=== PATIENT | female | born 1955 | race Caucasian/White ===

== ENCOUNTER → 2017-12-24 | Outpatient (CLI) | payer OTHER ==
[~2017-12-24] MED LIST: ALPRAZOLAM; CETIRIZINE; EPIPEN; HYDROCO/APAP; METFORMIN HCL500 M3; ONDANSETRON; PROAIR; PROVENTIL JT; Z ALBUTEROL SULFAT PO; Z DOXEPIN HCL PO; Z MORPHINE SULFAT; Z.0.ACIPHEX20 MG PO; Z.0.BENICAR20 MG PO; Z.0.DICYCLOMINE HCL2 PO; Z.0.FLEXERIL10 MG PO; Z.0.IPRATROPIU0.2 MG IH; Z.0.LIPITOR40 MG PO; Z.0.NITROGLYCERIN0.4 SL; Z.0.PLAVIX75 MG PO; Z.0.RESTASIS1 EACH OP; [UNRECOGNIZED DRUG - OTHER]; [UNRECOGNIZED DRUG - OTHER]
[2017-12-24 09:43] LABS: ABG HCO3 26 mmol/L (23-28); ABG PCO2 43 mmHg (41-51); ABG PH 7.39 (7.31-7.41); ABG PO2 84 mmHg (80-105)
== END ==
LOC: DX 09:19
PROVIDERS: ATTEND Internal Medicine
DX: R09.02 Hypoxemia (principal)
CPT/HCPCS: 36415; 82805

== ENCOUNTER 2018-04-12 19:11 | Inpatient (IN) | payer OTHER ==
[~2018-04-12] VITALS: Ht 170.2 cm; Wt 65.8 kg
[~2018-04-12 19:11] MED LIST changes: -Z MORPHINE SULFAT; +Z MORPHINE SULFAT PO
[2018-04-12] MEDS ORDERED: ONDANSETRON HCL INJ 2 MG/ML VIAL IV STA (19:28)
[2018-04-12] MEDS ORDERED: PANTOPRAZOLE 40 MG 10ML VIAL IV STA (19:28)
[2018-04-12] MEDS ORDERED: SODIUM CHLORIDE 0.9% 1000ML 1,000 ML IV ONE (19:30)
[2018-04-12] MEDS ORDERED: DILTIAZEM 24HR180 MG (19:36)
[2018-04-12] MEDS ORDERED: DILAUDID2 MG PO (19:38)
[2018-04-12 19:49] LABS: BASOPHILS # (AUTO) 0.1 (0.0-0.1); BASOPHILS % 0.5 % (0.0-1.0); EOSINOPHILS # (AUTO) 0.1 (0.0-0.4); EOSINOPHILS % 1.1 % (0.0-6.0); HEMATOCRIT 32.3 % (34.2-44.1); HEMOGLOBIN 11.5 g/dL (12.0-16.0); LYMPHOCYTES # (AUTO) 2.2 (1.0-3.2); LYMPHOCYTES % 17.4 % (18.0-39.1); MEAN CORPUSCULAR HEMOGLOBIN 30.7 pg (28-32); MEAN CORPUSCULAR HGB CONC 35.6 g/dL (31-35); MEAN CORPUSCULAR VOLUME 86.4 fL (81-99); MONOCYTES % 7.6 % (4.4-11.3); NEUTROPHILS # (AUTO) 9.3 (2.1-6.9); NEUTROPHILS % 72.9 % (38.7-80.0); PLATELET COUNT 413 x10e3/uL (140-360); RED BLOOD COUNT 3.74 x10e6/uL (3.6-5.1); RED CELL DISTRIBUTION WIDTH 12.3 % (11.7-14.4)
[2018-04-12 20:09] LABS: ALANINE AMINOTRANSFERASE 21 IU/L (0-55); ALBUMIN 4.4 g/dL (3.5-5.0); ALBUMIN/GLOBULIN RATIO 1.4 (0.8-2.0); ALKALINE PHOSPHATASE 113 IU/L (40-150); AMYLASE 37 U/L (25-125); ANION GAP 15.3 mmol/L (8-16); BLOOD UREA NITROGEN 9 mg/dL (7-26); BUN/CREATININE RATIO 11 (6-25); CALCIUM 9.8 mg/dL (8.4-10.2); CARBON DIOXIDE 23 mmol/L (22-29); CHLORIDE 91 mmol/L (98-107); CREATINE KINASE 61 IU/L (29-168); CREATININE, SERUM 0.82 mg/dL (0.57-1.11); EST GLOMERULAR FILTRATION RATE > 60 ML/MIN (60-); GLUCOSE 113 mg/dL (74-118); LIPASE 10 U/L (8-78); POTASSIUM 3.3 mmol/L (3.5-5.1); SODIUM 126 mmol/L (136-145)
--- NOTE | 2018-04-12 20:33 | Diagnostic Imaging Report ---
ABDOMEN ACUTE SERIES W/PA CXR Clinical history: Vomiting, abdominal pain Technique: AP views of the abdomen, frontal chest x-ray Comparison: 10/09/2016 Findings: Abdomen: Motion artifact degrades upright view. Right upper quadrant clips and overlying skin alexis. No evidence of obstruction or free air. Mild colonic stool burden. Chest: Stable cardiomediastinal silhouette. Hyperinflation with scattered linear areas of scarring. Stable blunting of the right costophrenic angle. No large effusion or pneumothorax. Impression: Nonobstructive bowel gas pattern. Signed by: Dr Erica Pizano MD on 04/12/2018 8:30 PM
[2018-04-12 21:24] LABS: CLARITY,URINE CLOUDY (CLEAR); COLOR,URINE YELLOW (YELLOW)
[2018-04-12 21:25] LABS: BILIRUBIN,URINE NEGATIVE (NEGATIVE); KETONES,URINE NEGATIVE (NEGATIVE); LEUKOCYTE ESTERASE ,URINE 2+ (NEGATIVE); NITRITE,URINE POSITIVE (NEGATIVE); PROTEIN,URINE DIPSTICK NEGATIVE (NEGATIVE); RBC,URINE 0-5 /HPF (0-5); URINE UROBILINOGEN 0.2 mg/dL (0.2 - 1); WBC,URINE (MAN) >50 /HPF (0-5)
[2018-04-12 21:26] LABS: BACTERIA,URINE MANY /HPF; EPITHELIAL CELLS,URINE FEW /LPF
[2018-04-12] MEDS ORDERED: KCL 20MEQ/.9 SOD CHL 1,000 ML IV ONE (21:30)
[2018-04-12] MEDS ORDERED: NITROFURANTOIN MACROCRYSTALS 100 MG CAP PO SCH (21:30)
[2018-04-12] MEDS ORDERED: ZOFRAN ODT4 MG PO (22:06)
[2018-04-12] MEDS: ONDANSETRON HCL INJ 2 MG/ML VIAL IV PRN (22:07)
[2018-04-12] MEDS: HYDROMORPHONE 1MG/1ML INJ IV PRN (22:20)
[2018-04-12] MEDS ORDERED: HYDRALAZINE HCL 25 MG TAB PO ONE (23:15)
[2018-04-12] MEDS ORDERED: LASIX40 MG PO (23:22)
[2018-04-12] MEDS: ALPRAZOLAM 1 MG TAB PO PRN (23:50)
[2018-04-13] MEDS: ONDANSETRON HCL INJ 2 MG/ML VIAL IV PRN ×5 (03:15→20:44)
[2018-04-13] MEDS: HYDROMORPHONE 1MG/1ML INJ IV PRN ×4 (03:15→20:44)
[2018-04-13] MEDS: CLONIDINE HCL 0.1 MG TAB PO SCH ×2 (03:54→08:26)
[2018-04-13 05:52] LABS: BASOPHILS % 0.4 % (0.0-1.0); EOSINOPHILS # (AUTO) 0.1 (0.0-0.4); EOSINOPHILS % 0.9 % (0.0-6.0); HEMATOCRIT 27.6 % (34.2-44.1); HEMOGLOBIN 9.6 g/dL (12.0-16.0); LYMPHOCYTES # (AUTO) 1.5 (1.0-3.2); LYMPHOCYTES % 14.9 % (18.0-39.1); MEAN CORPUSCULAR HEMOGLOBIN 30.7 pg (28-32); MEAN CORPUSCULAR HGB CONC 34.8 g/dL (31-35); MEAN CORPUSCULAR VOLUME 88.2 fL (81-99); MONOCYTES # (AUTO) 0.7 (0.2-0.8); MONOCYTES % 7.2 % (4.4-11.3); NEUTROPHILS # (AUTO) 7.7 (2.1-6.9); NEUTROPHILS % 76.1 % (38.7-80.0); PLATELET COUNT 333 x10e3/uL (140-360); RED BLOOD COUNT 3.13 x10e6/uL (3.6-5.1); RED CELL DISTRIBUTION WIDTH 12.5 % (11.7-14.4)
[2018-04-13 06:08] LABS: ALANINE AMINOTRANSFERASE 16 IU/L (0-55); ALBUMIN 3.6 g/dL (3.5-5.0); ALBUMIN/GLOBULIN RATIO 1.6 (0.8-2.0); ALKALINE PHOSPHATASE 98 IU/L (40-150); ANION GAP 12.5 mmol/L (8-16); BLOOD UREA NITROGEN 8 mg/dL (7-26); BUN/CREATININE RATIO 11 (6-25); CALCIUM 8.3 mg/dL (8.4-10.2); CARBON DIOXIDE 23 mmol/L (22-29); CHLORIDE 96 mmol/L (98-107); CREATININE, SERUM 0.73 mg/dL (0.57-1.11); EST GLOMERULAR FILTRATION RATE > 60 ML/MIN (60-); GLUCOSE 114 mg/dL (74-118); POTASSIUM 3.5 mmol/L (3.5-5.1); SODIUM 128 mmol/L (136-145)
[2018-04-13] MEDS ORDERED: AMLODIPINE BESYLATE 5 MG TAB PO SCH (09:00)
[2018-04-13] MEDS ORDERED: VALSARTAN 160 MG TAB PO SCH (09:00)
[2018-04-13] MEDS: METOCLOPRAMIDE HCL 10 MG/2ML VIAL IV SCH ×4 (10:37→23:15)
[2018-04-13 14:00] VITALS: BP 147/77
[2018-04-13 14:04] VITALS: BP 147/77
[2018-04-13 16:07] VITALS: BP 165/96
[2018-04-13] MEDS ORDERED: NITROGLYCERIN 0.4 MG SUBL SL PRN (17:15)
[2018-04-13] MEDS: KCL 20MEQ/.9 SOD CHL 1,000 ML IV SCH (18:00)
[2018-04-13] MEDS ORDERED: DIPHENOXYLATE/ATROPINE TAB PO PRN (18:00)
[2018-04-13] MEDS ORDERED: DEXTROSE 50% SYRINGE 50 ML IV PRN (18:00)
[2018-04-13] MEDS ORDERED: ALBUTEROL SULFATE 3 MG PO SCH (18:00)
--- NOTE | 2018-04-13 18:23 | History and Physical ---
HISTORY OF PRESENT ILLNESS: A 62-year-old female with past medical history positive for coronary artery disease, hypertension, carotid stenosis, multiple surgeries including appendectomy, cholecystectomy, hysterectomy, abdominal surgery because of infected mesh, history of diabetes, history of chronic pain syndrome, fibromyalgia, history of TIAs. Patient was recently discharged from [facility] due to a TIA and vomiting and uncontrolled hypertension, and according to the patient she was still vomiting when she was sent home by [facility]. She came here with abdominal pain and vomiting and diarrhea. REVIEW OF SYSTEMS: CARDIOVASCULAR: No chest pain or palpitation. RESPIRATORY: No shortness of breath. No cough. GASTROINTESTINAL: She is complaining of nausea, vomiting, abdominal pain and diarrhea. No blood in the stools. No vomiting blood. GENITOURINARY: She has frequency and dysuria. PAST MEDICAL HISTORY: As I said before is COPD, coronary artery disease, hypertension, fibromyalgia, chronic pain syndrome, diabetes mellitus type 2. ALLERGIES: SHE IS ALLERGIC TO A LONG LIST OF MEDICATIONS INCLUDING MINERAL OIL, CASTOR OIL, CARAFATE, IRON AND SULFA, PENICILLIN, LEVAQUIN, OXYCODONE TRAMADOL, AZITHROMYCIN, ADHESIVE TAPE, ERYTHROMYCIN AND DOXYCYCLINE. SOCIAL HISTORY: She used to smoke. She does not smoke anymore. She does not drink alcohol. PHYSICAL EXAMINATION: VITAL SIGNS: Blood pressure 165/96, temperature 96.8, heart rate 89 per minute, respiratory rate is 18 per minute, oxygen saturation 100%. HEART: Shows regular rhythm. Normal S1 and S2 sounds. LUNGS: Clear bilaterally. ABDOMEN: Soft. EXTREMITIES: Show no evidence of cyanosis, edema or trauma. KUB showed no evidence of any abdominal abnormality. On the BMP: Sodium 128, potassium 3.5, chloride 96, CO2 23, BUN 8, creatinine 0.73, glucose 114. On the CBC: White blood count 10.1, hemoglobin 9.6, hematocrit 27.6, platelet count 333,000. AST 16, ALT 16, total bilirubin 0.4, alkaline phosphatase 98. FINAL IMPRESSION: 1. Recurrent vomiting. 2. Acute diarrhea. 3. Anemia of chronic disease. 4. Urinary tract infection. 5. Chronic pain syndrome. 6. Coronary artery disease. 7. Hypertension. 8. Diabetes mellitus type 2 with neuropathy. 9. Chronic obstructive pulmonary disease. 10. Fibromyalgia. PLAN OF TREATMENT: Continue nitrofurantoin 100 mg twice a day, which is one of the few antibiotics we can give her due to she has multiple allergies, for a possible UTI. Continue Zofran 4 mg IV q.4 h. as needed. Alprazolam 1 mg at bedtime. Amlodipine 5 mg daily. Dilaudid 1 mg IV q.4 h. as needed for severe pain. Hydralazine 20 mg IV push every 4 hours as needed for hypertension. Clonidine 0.1 mg twice a day. Metoclopramide 10 mg IV q.6 h. as needed. is going to be changed to losartan 100 mg daily due to a recent recall. Continue the rest of the medications. Continue diabetic diet. Continue blood sugar a.c. and nightly. We are going to consult Dr. Dunn for gastroenterology and Dr. Huston for infectious diseases and Dr. Plata for pain management. Patient had a pain pump removed recently. She had a staple at least for a month. The alexis are ready to come out. We are going to have the nurse to remove the staple as tolerated as long as there is not any dehiscence in the wound. Job#: [id number] EV
[2018-04-13] MEDS ORDERED: IPRATROPIUM BROMIDE 0.02% 2.5 ML NEB NEB SCH (19:00)
[2018-04-13] MEDS ORDERED: MAGNESIUM SULFATE 2GM/50ML 50 ML IV ONE (19:45)
[2018-04-13 20:00] VITALS: BP 165/96
--- NOTE | 2018-04-13 20:21 | Consultation ---
DATE OF CONSULTATION: REASON FOR CONSULTATION: Diarrhea, UTI, recommendation for antibiotic. HISTORY OF PRESENT ILLNESS: This is a 62-year-old female who has history of coronary artery disease, hypertension, carotid stenosis, atherosclerotic disease and past surgical history of appendectomy, cholecystectomy, hysterectomy, infected mesh. The patient comes in not feeling well. She was recently at [facility]. She had TIA. She had vomiting. She has hypertension. She was discharged home. She was there for a few days and came back with nausea, vomiting and diarrhea, not feeling well. Patient was admitted. The patient is currently lying in bed comfortably. PAST MEDICAL HISTORY: Coronary artery disease, chronic pain syndrome, fibromyalgia, hypertension, diabetes mellitus. PAST SURGICAL HISTORY: As above. ALLERGIES: PENICILLIN, LEVAQUIN, AZITHROMYCIN. SOCIAL HISTORY: She used to smoke but quit smoking several years ago. REVIEW OF SYSTEMS HEENT: Negative. There is no headache, visual changes or hearing changes. GI: There is no nausea, no vomiting, no diarrhea. JOINTS: There is no erythema or edema. LABS: White count on admission 12.69, hemoglobin 11.5. Sodium 128, potassium 3.5, creatinine 0.73. PHYSICAL EXAMINATION GENERAL: She is currently alert and oriented, does not seem to be in acute distress. VITALS: Stable. Currently afebrile. There is no fever since admission. HEENT: She is does not appear icteric. NECK: Supple. No JVD. No lymphadenopathy. No thyromegaly. CHEST: Clear bilaterally. HEART: S1, S2. No S3, S4. No murmur. ABDOMEN: Soft. Bowel sounds present. No tenderness. EXTREMITIES: No edema. IMPRESSION: DICTATION STOPPED AT THIS POINT. Job#: [id number]
--- NOTE | 2018-04-13 20:34 | Consultation ---
DATE OF CONSULTATION: HISTORY OF PRESENT ILLNESS: Ms. Alberto is known to me from previous admission. She is telling me she has been having nausea and vomiting for several months. She took her pain pump out and since then she has been having nausea and vomiting and pain. The patient has been at [facility]. She was there for 3 days where she had extensive workup and was discharged home. The next day, she went to [facility]. She was there for 9 days. She had extensive workup and nothing was found. She was discharged home. The next day, she had nausea and vomiting and she came here. During the whole stay, there is no fever, no chills and all other systems are within normal limits. PHYSICAL EXAMINATION: GENERAL: She is currently alert, oriented, does not seem to be in acute distress. VITALS: Stable, currently afebrile. HEENT: She is normocephalic, not icteric. NECK: Supple. No JVD. No lymphadenopathy. No thyromegaly. CHEST: Clear, bilateral coarse. HEART: S1, S2. No S3, S4 or murmur. ABDOMEN: Soft. Bowel sounds present. No tenderness. EXTREMITIES: No edema. IMPRESSION: 1. Nausea and vomiting. It could be secondary to gastrointestinal motility. Will consult gastroenterology. She is well known to Dr. Jackman and his group. From infectious disease point of view, I do not think she has infection at the present time. 2. Allergies to some antibiotic. There is no need for antibiotic at the present time. Discussed with the patient. Will follow with you. Job#: [id number]
[2018-04-13] MEDS ORDERED: INSULIN REGULAR, HUMAN 100 UNIT/1 ML 3ML VIAL SQ SCH (21:00)
[2018-04-13] MEDS: ALBUTEROL SULFATE 2 MG TAB PO SCH ×2 (21:00→21:36)
[2018-04-13] MEDS: INSULIN REGULAR, HUMAN 100 UNIT/1 ML 3ML VIAL SQ SCH (21:00)
[2018-04-13] MEDS: MAGNESIUM SULFATE 2GM/50ML 50 ML IV SCH ×2 (21:00→23:15)
[2018-04-13 21:45] VITALS: BP 125/97
[2018-04-14] VITALS (7 sets, daily range): BP systolic 142–208; BP diastolic 77–98
[2018-04-14] MEDS: ALPRAZOLAM 1 MG TAB PO PRN ×2 (00:14→21:08)
[2018-04-14] MEDS: HYDROMORPHONE 1MG/1ML INJ IV PRN ×6 (00:54→22:30)
[2018-04-14] MEDS: ONDANSETRON HCL INJ 2 MG/ML VIAL IV PRN ×6 (00:54→22:30)
[2018-04-14] MEDS: METOCLOPRAMIDE HCL 10 MG/2ML VIAL IV SCH ×2 (06:06→12:53)
[2018-04-14 06:43] LABS: ANION GAP 15.1 mmol/L (8-16); BLOOD UREA NITROGEN 8 mg/dL (7-26); BUN/CREATININE RATIO 11 (6-25); CALCIUM 8.4 mg/dL (8.4-10.2); CARBON DIOXIDE 22 mmol/L (22-29); CHLORIDE 96 mmol/L (98-107); CREATININE, SERUM 0.75 mg/dL (0.57-1.11); EST GLOMERULAR FILTRATION RATE > 60 ML/MIN (60-); GLUCOSE 102 mg/dL (74-118); MAGNESIUM 2.4 MG/DL (1.3-2.1); POTASSIUM 3.1 mmol/L (3.5-5.1); SODIUM 130 mmol/L (136-145)
[2018-04-14] MEDS: INSULIN REGULAR, HUMAN 100 UNIT/1 ML 3ML VIAL SQ SCH ×4 (07:30→21:00)
[2018-04-14] MEDS: HYDRALAZINE HCL 20 MG/ML VIAL IV PRN ×2 (08:00→16:45)
[2018-04-14] MEDS ORDERED: DILTIAZEM HCL 180 MG CAP CD PO SCH (09:00)
[2018-04-14] MEDS ORDERED: FUROSEMIDE 40 MG TAB PO SCH (09:00)
[2018-04-14] MEDS: CLOPIDOGREL BISULFATE 75 MG TAB PO SCH (09:00)
[2018-04-14] MEDS: LOSARTAN POTASSIUM 100 MG TAB PO SCH (09:00)
[2018-04-14] MEDS ORDERED: LOSARTAN POTASSIUM 100 MG TAB PO SCH (09:00)
[2018-04-14] MEDS: ONDANSETRON HCL 4 MG ORAL DISINTEGRATING TAB PO SCH ×2 (09:20→17:00)
[2018-04-14] MEDS ORDERED: POTASSIUM CHLORIDE 20MEQ/100ML 200 ML IV ONE (10:00)
[2018-04-14] MEDS ORDERED: METOPROLOL TARTRATE INJ 1 MG/ML VIAL IV PRN (12:15)
[2018-04-14] MEDS: METOPROLOL TARTRATE INJ 1 MG/ML VIAL IV PRN (12:25)
[2018-04-14] MEDS ORDERED: CLONIDINE HCL 0.3MG/24 HR PATCH TOP SCH (12:30)
--- NOTE | 2018-04-14 13:15 | Progress Note ---
DATE: INTERNAL MEDICINE PROGRESS NOTE SUBJECTIVE: This is a 62-year-old female who is complaining of vomiting. She is on Zofran. She is on Reglan. The patient is still vomiting. Blood pressure is very high. PHYSICAL EXAMINATION VITAL SIGNS: Blood pressure is 198/80. Temperature is 96.2 degrees Fahrenheit. Heart rate 82 per minute. Respiratory rate 18 per minute. Oxygen saturation 100%. HEART: Regular rhythm. Normal S1, S2 sounds. LUNGS: Clear bilaterally. ABDOMEN: Soft. No tenderness or distention. No visceromegaly. EXTREMITIES: No evidence of cyanosis, edema or trauma. LABS: On the BMP, sodium of 130, potassium 3.1, chloride 96, CO2 22, BUN 8, creatinine 0.75. Glucose 102. On the CBC, white blood count 10.1, hemoglobin 9.6, hematocrit 27.6, platelet count 333,000. AST 16, ALT 16, total bilirubin 0.4, alkaline phosphatase 98. FINAL IMPRESSION 1. Recurrent vomiting. 2. Uncontrolled hypertension. 3. Urinary tract infection. 4. Hypokalemia. 5. Acute diarrhea. 6. Anemia of chronic disease. 7. Chronic pain syndrome. 8. Diabetes mellitus, type 2. 9. Coronary artery disease. 10. Hypertension. 11. Chronic obstructive pulmonary disease. 12. Fibromyalgia. PLAN OF TREATMENT 1. Continue normal saline with potassium 75 mL an hour. 2. Replace potassium as needed. 3. Continue nitrofurantoin 100 mg twice a day. 4. Clonidine 0.1 mg twice a day has been placed on hold because she is on Catapres patch 0.3 mg once a week. 5. Continue Plavix 75 mg daily. 6. Zofran 4 mg IV twice a day as needed. 7. Monitor blood sugar a.c. and nightly. 8. Amlodipine 5 mg daily. 9. Bentyl 20 mg q.6 h. as needed. 10. Albuterol q.6 h. as needed. 11. as needed. 12. Zofran 4 mg IV q.6 h. as needed. Discontinue p.o. Zofran. 13. Continue alprazolam 1 mg at bedtime. 14. Hydralazine 20 mg IV q.4 h. as needed. 15. Metoprolol 5 mg IV q.6 h. as needed. 16. Cardizem has been increased to 240 mg daily because of the uncontrolled hypertension. 17. She is also taking Dilaudid 1 mg IV q.4 h. as needed. 18. Losartan 100 mg daily. 19. Metoclopramide 10 mg IV q.6 h. 20. Gastroenterology consult with Dr. Dunn has been requested. 21. Pain management consult with Dr. Plata has been requested. 22. Consult Dr. Huston for infectious diseases because of possibility of UTI. 23. Patient had been admitted in another hospital because of the same complaints of vomiting and diarrhea. 24. We ordered stool for culture and C. difficile also. 25. Lomotil as needed. 26. I discussed the case with the nurse and the patient. Medications have been reviewed. The labs have been reviewed. Job#: [id number]
--- NOTE | 2018-04-14 16:50 | Diagnostic Imaging Report ---
PROCEDURE: CT ABDOMEN AND PELVIS WITHOUT CONTRAST TECHNIQUE: The abdomen and pelvis were scanned utilizing a multidetector helical scanner from the diaphragm to the lesser trochanter. No oral contrast was given due to vomiting. No IV contrast was administered due to history of iodine allergy. Coronal and sagittal multiplanar reformations were obtained. COMPARISON: [facility], CT, CT ABDOMEN/PELVIS WO, 07/10/2012, 0:41. INDICATIONS: VOMITING, HYPOKALEMIA, history of bowel obstruction in 2011 FINDINGS: ABSENCE OF INTRAVENOUS CONTRAST DECREASES SENSITIVITY FOR DETECTION OF FOCAL LESIONS AND VASCULAR PATHOLOGY. LOWER THORAX: Stable scarring in the anterior right lower lobe (series 2 image 4). Atherosclerotic calcification of the distal thoracic aorta. HEPATOBILIARY: Decreased attenuation of the hepatic parenchyma predominantly involving the right hepatic lobe, consistent with focal steatosis. No focal lesions. No intrahepatic biliary ductal dilation. Stable mild prominence of the common bile duct, which measures approximately 7 mm at the amy hepatis. No radiopaque intraluminal filling defects. Cholecystectomy clips. SPLEEN: No splenomegaly. PANCREAS: No focal masses or ductal dilatation. Mild to moderate pancreatic atrophy. ADRENALS: No adrenal nodules. KIDNEYS/URETERS: No hydronephrosis, stones, or solid mass lesions. PELVIC ORGANS/BLADDER: Bladder is moderately distended. No focal lesions or wall thickening. Uterus is not visualized. No adnexal masses. PERITONEUM / RETROPERITONEUM: No free air or fluid. LYMPH NODES: No lymphadenopathy. VESSELS: Marked atherosclerotic calcification of the abdominal aorta, predominantly the distal portion of proximal vessels. Stable aortobiiliac bypass graft, which shows mild calcification. GI TRACT: There is mild focal dilation of a single loop of proximal jejunum (series 2, image 17), which tapers to normal caliber. No surrounding inflammatory changes or wall thickening. No evidence of obstruction. No pericolonic inflammatory changes. The stomach is decompressed and difficult to evaluate. BONES AND SOFT TISSUES: No aggressive lytic lesions. Stable mild anterior wedging of these L1 vertebral body. Bilateral gluteal region calcified injection granulomas. 5.3 x 1.7 x 4.5 cm structure with central fluid density in the subcutaneous soft tissues of the left anterolateral pelvis (series 2 image 45). No significant surrounding fat stranding. IMPRESSION: 1. Mild focal dilation of a single loop of proximal jejunum, which is likely secondary to peristalsis. There is no surrounding inflammatory changes, no wall thickening, and the loop tapers to normal caliber. The rest of the bowel shows normal caliber. No evidence of obstruction. 2. Mild prominence of the common bile duct, likely reflecting post cholecystectomy status. 3. Hepatic steatosis, predominately involving the right hepatic lobe. 4. 5.3 cm fluid collection in the subcutaneous soft tissues of the left anterior lateral pelvis. Unable to assess for abscess given the lack of intravenous contrast. Correlate for recent surgery. Hussein Fallon M.D. Dictated by: Hussein Fallon M.D. on 04/14/2018 at 16:55 Electronically approved by: Hussein Fallon M.D. on 04/14/2018 at 16:55
[2018-04-14] MEDS: KCL 20MEQ/.9 SOD CHL 1,000 ML IV SCH ×2 (17:21→21:08)
[2018-04-14] MEDS: RIFAXIMIN 550 MG TABLET PO SCH (18:00)
--- NOTE | 2018-04-14 18:47 | Consultation ---
DATE OF CONSULTATION: April 14, 2018 GI CONSULTATION REFERRING PHYSICIAN: Wally Lester MD REASON FOR CONSULTATION: Recurrent nausea, vomiting and diarrhea for 3 weeks. HISTORY OF PRESENTING ILLNESS: A 62-year-old white female with a host of comorbidities that includes fibromyalgia, chronic back ache, hypertension, coronary artery disease and multiple abdominal surgeries that ranges from appendectomy, cholecystectomy, hysterectomy, hernia repair, infected mesh requiring repeat laparotomy, a small bowel resection due to recurrent small bowel obstruction, chronic pain syndrome, TIAs. She was in [facility] last week for the nausea, vomiting and diarrhea. She was evaluated in the emergency room and discharged home with reassurance. However, she said that nausea, vomiting, diarrhea continues, therefore her decided to bring her here. CT scan performed here did not show any acute gastrointestinal pathology. CT scan is limited due to lack of contrast. Electrolytes showed some hypokalemia and hypomagnesemia which are being replaced. Stool tested negative for C. diff. Stool culture and stool WBC have not been tested. Patient is currently being given supportive care with IV fluid, antiemetics. She has not had any bowel movement for last 3 days. Today, she has had 1 clear liquidy stool that was collected and tested for C. diff, negative. REVIEW OF SYSTEMS: A 12-point system reviewed, symptomatology is limited to GI system. PAST MEDICAL HISTORY: Coronary artery disease, hypertension, carotid artery stenosis, fibromyalgia, chronic pain syndrome, TIAs. PAST SURGICAL HISTORY: Multiple abdominal surgeries that ranges from appendectomy, cholecystectomy, hysterectomy, infected mesh repair, repeated laparotomy, small bowel resection secondary to recurrent small bowel obstruction. FAMILY HISTORY: Negative for any GI or FIREFIGHTER TYPE ONE malignancies. SOCIAL HISTORY: Former smoker. Seldom drinks alcohol. , lives with her . ALLERGIES: LIST IS EXTENSIVE, MORE THAN DOZEN REPORTED IN THE CHART. HOME MEDICATIONS: Albuterol inhaler, atorvastatin, clopidogrel, cyclobenzaprine, dicyclomine, diltiazem, doxepin, furosemide, hydromorphone, ipratropium, metformin, nitroglycerin, Zofran. PHYSICAL EXAMINATION: VITALS: Temperature 97.5, pulse 103, respirations 16, blood pressure 182/94 to 175/98, oxygen saturation 100% on room air. GENERAL: Not in any acute distress. Smiling, talking over the phone. HEENT: Oral mucosa is moist. Anicteric sclerae. CVS: S1, S2, regular. LUNGS: Bilaterally grossly clear. ABDOMEN: Soft with multiple healed surgical scars. Nondistended, nontender. No palpable mass or hernia. Positive bowel sounds. Bowel sound is not hyperactive. EXTREMITIES: Warm. No leg edema. LABORATORY DATA: WBC has come down to 10.15 from 12.69, hemoglobin 9.6 from 11.5, hematocrit 27.6, MCV 88.2, platelet count 333,000. Electrolytes checked today showed sodium 130, potassium 3.1, chloride 96, bicarb 22, BUN 8, creatinine 0.75, glucose 108. Magnesium level has come up from 0.8 to 2.4. Stool for C. diff toxin negative. Contrast limited CT scan of the abdomen and pelvis showed, 1. Mild focal dilatation of single loops of proximal jejunum which is likely secondary to peristalsis. There are no surrounding inflammatory changes. No wall thickening, loop tapers to normal caliber. The rest of the bowel shows normal caliber. No evidence of obstruction. 2. Mild prominence of the common bile duct, likely reflecting post cholecystectomy status. 3. Hepatic steatosis, predominantly involving the right hepatic lobe. 4. A 5.3-cm fluid collection in the subcutaneous soft tissue of the left anterolateral pelvis. Unable to assess for abscess given the lack of intravenous contrast. Correlate for recent surgery. IMPRESSION: Nausea, vomiting and diarrhea with electrolyte imbalance. However, workup so far done including contrast limited computed tomographic scan has been negative. Stool is negative for Clostridium difficile toxins. PLAN: Supportive care. Due to multiple abdominal surgeries, patient is at the risk of having bacterial overgrowth; therefore, will give her enteric antibiotics, e.g. Xifaxan. Continue oral diet. Repeat electrolytes. Recommend surgery consultation for this localized fluid collection in the left lower quadrant. I thank Dr. Lester for allowing me to participate in the care of this patient. Job#: [id number]
--- NOTE | 2018-04-14 19:47 | Consultation ---
DATE OF CONSULTATION: April 14, 2018 SURGICAL CONSULTATION REFERRING PHYSICIANS: Dr. Lester, Dr. Sams. HISTORY OF PRESENT ILLNESS: Patient is a 62-year-old female who has multiple medical problems included coronary artery disease, hypertension, recent TIA or stroke, fibromyalgia, chronic pain, diabetes, who was admitted to the hospital with complaints of abdominal pain, nausea, vomiting and diarrhea with poorly controlled hypertension. Patient was evaluated with a CT scan of the abdomen and pelvis which revealed a fluid collection in the left lower abdomen. Patient says she had a pain pump removed from this area about a week ago. The patient has had multiple previous abdominal surgeries to include appendectomy, cholecystectomy, hysterectomy, previous hernia repairs, previous colon resection, and removal of an infected abdominal wall mesh. PAST MEDICAL HISTORY: As stated above. ALLERGIES: SHE HAS MULTIPLE ALLERGIES WHICH ARE LISTED IN THE CHART. MEDICATIONS: Listed in the chart. FAMILY HISTORY: Noncontributory. SOCIAL HISTORY: The patient is a former smoker, does not smoke now, does not drink alcohol. REVIEW OF SYSTEMS: She has not had any definite fever. GI symptoms as stated above, but she has no definite weight loss. PHYSICAL EXAMINATION: GENERAL: The patient is awake and alert, in no distress. VITAL SIGNS: Essentially normal. She is afebrile. HEENT: Reveals no scleral icterus. NECK: Has no masses. LUNGS: Equal breath sounds are clear bilaterally. CARDIAC: Regular rate and rhythm. ABDOMEN: Soft. There is no tenderness. There is a surgical wound in the left lower quadrant which is clean, no erythema, no drainage. EXTREMITIES: Have no edema. NEUROLOGIC: Grossly intact. ASSESSMENT: A 62-year-old female with multiple medical problems with fluid collection in the abdominal wall, and this is likely related to her recent surgery and most likely a postoperative seroma. This likely will resolve without requiring intervention. There is no sign of infection. I do not think this is contributing to her symptoms. She probably needs further GI workup, and I will defer to Dr. Sams for this. There are no findings of an acute abdomen, no findings that would warrant immediate surgical intervention. Thank you for asking me to see Ms. Alberto. Job#: [id number] EV
[2018-04-14] MEDS: ALBUTEROL SULFATE 2 MG TAB PO SCH (21:08)
[2018-04-15] VITALS (8 sets, daily range): BP systolic 124–195; BP diastolic 73–94
[2018-04-15] MEDS: ONDANSETRON HCL INJ 2 MG/ML VIAL IV PRN ×5 (02:34→18:30)
[2018-04-15] MEDS: HYDROMORPHONE 1MG/1ML INJ IV PRN ×6 (02:36→23:29)
[2018-04-15] MEDS: METOPROLOL TARTRATE INJ 1 MG/ML VIAL IV PRN (04:58)
[2018-04-15] MEDS: INSULIN REGULAR, HUMAN 100 UNIT/1 ML 3ML VIAL SQ SCH ×4 (07:30→21:00)
[2018-04-15] MEDS: RIFAXIMIN 550 MG TABLET PO SCH ×3 (09:00→16:40)
[2018-04-15] MEDS: ONDANSETRON HCL 4 MG ORAL DISINTEGRATING TAB PO SCH ×2 (09:01→16:40)
[2018-04-15] MEDS: DILTIAZEM HCL 120 MG CAP CD PO SCH (10:36)
[2018-04-15] MEDS: KCL 20MEQ/.9 SOD CHL 1,000 ML IV SCH ×2 (10:37→23:30)
[2018-04-15] MEDS: LOSARTAN POTASSIUM 100 MG TAB PO SCH (10:37)
[2018-04-15] MEDS: CLOPIDOGREL BISULFATE 75 MG TAB PO SCH (10:37)
[2018-04-15] MEDS: HYDRALAZINE HCL 20 MG/ML VIAL IV PRN (12:13)
--- NOTE | 2018-04-15 13:13 | Progress Note ---
DATE: INTERNAL MEDICINE PROGRESS NOTE SUBJECTIVE: This is a 62-year-old female who came with vomiting. The patient's vomiting is going away. She is feeling better right now. PHYSICAL EXAMINATION VITAL SIGNS: Blood pressure 139/79. Temperature 96.8. Heart rate 90 per minute. Respiratory rate is 20 per minute. Oxygen saturation is 98%. HEART: Regular rhythm. Normal S1, S2 sounds. LUNGS: Clear bilaterally. ABDOMEN: Soft. No tenderness, no distention, no visceromegaly. EXTREMITIES: No evidence of cyanosis, edema or trauma. CT of the abdomen showed only fatty liver, status post cholecystectomy, dilated common bile duct probably secondary to cholecystectomy, no evidence of any bowel obstruction. Fluid collection in the left pelvic area, which does not seem to be an abscess. On the BMP, sodium 130, potassium 3.8, chloride 96, CO2 22, BUN 8, creatinine 0.05. Glucose 102. On the CBC, white blood count 10.1, hemoglobin 9.6, hematocrit 27.6, platelet count 333,000. AST 16, ALT 16, total bilirubin 0.4, alkaline phosphatase 98. FINAL IMPRESSION 1. Recurrent vomiting. 2. Possible urinary tract infection. 3. Diabetes mellitus, type 2. 4. Uncontrolled hypertension. 5. Fibromyalgia. 6. Chronic pain syndrome. 7. Fluid collection in the pelvic area which does not seem to be an abscess because it does not have any fluid. Her white blood count is normal. PLAN OF TREATMENT 1. Continue with current medication regimen. 2. Gastroenterology consult with Dr. uDnn and Dr. Huston for infectious disease. 3. Dr. Ford saw her from the surgical point of view. No surgery is needed right now. 4. Dr. Plata is seeing her from the pain management point of view. 5. Continue albuterol q.6 h. 6. Continue potassium in normal saline at 75 mL an hour. 7. Zofran 4 mg IV q.4 h. as needed. 8. Alprazolam 1 mg at bedtime. 9. Losartan 100 mg daily. 10. push as needed. 11. Xifaxan 550 mg twice a day. 12. Dilaudid 1 mg IV q.4 h. as needed. 13. Plavix 75 mg daily. 14. Albuterol q.6 h. 15. Cardizem 240 mg daily. 16. Clonidine 0.1 mg twice a day. 17. Bentyl 20 mg q.6 h. as needed. 18. Lomotil 1 tablet q.6 h. as needed. 19. Clonidine patch 0.3 mg once a week. 20. Hydralazine 20 mg IV push q.4 h. as needed for hypertension. 21. Continue monitoring blood sugar a.c. and at bedtime. 22. Metoprolol 5 mg IV q.6 h. as needed. 23. We are going to optimize the diet to a mechanical soft diet. She is able to tolerate the liquid diet. Once she has tolerated the diet and her blood pressure is under control, the patient might be able to go home. Job#: [id number] JORDIN
--- NOTE | 2018-04-15 19:23 | Progress Note ---
DATE: April 15, 2018 SUBJECTIVE: Patient reports improvement in nausea, able to tolerate solid food. She has had a couple of loose stools today. The patient was seen by Dr. Ford yesterday. REVIEW OF SYSTEMS: GENERAL: No fever or chills. CVS: No chest pain or palpitation. RESPIRATORY: No cough or expectoration. MEDICATIONS: Reviewed as per NOV. PHYSICAL EXAMINATION VITAL SIGNS: Temperature 96, pulse ranging from 90 to 100. Respirations 18. Blood pressure 156/94 to 176/91, oxygen saturation 97% on room air. GENERAL: Not in any acute distress. HEENT: Moist mucous membranes. No oral lesions. Anicteric sclerae. CVS: S1 and S2 regular. LUNGS: Bilaterally grossly clear. ABDOMEN: Soft and nondistended. Mild lower quadrant tenderness on deep palpation. No rebound, rigidity or guarding. Left lower quadrant tenderness has also improved. EXTREMITIES: Warm. No leg edema. LABS: No lab drawn today. Stool lactoferrin was positive. Stool culture is pending. Urinalysis showed Klebsiella pneumonia and Proteus mirabilis. IMPRESSION: 1. Urinary tract infection. Culture growing Klebsiella as well as Proteus mirabilis. The patient is not on any antibiotics. 2. Nausea and vomiting, resolved. Stool remains loose and that could be due to underlying irritable bowel syndrome with diarrhea. 3. Possible bacterial overgrowth due to multiple abdominal surgeries. PLAN: Continue rifaximin as prescribed yesterday. The patient's sodium level is still low. Correct sodium and potassium level. Surgery consult by Dr. Ford appreciated. The localized fluid collection in the left lower quadrant as seen on CT scan in the abdominal wall is due to pain pump which was recently removed. This is nothing but seroma. This is expected to resolve on its own. Job#: [id number]
[2018-04-15] MEDS: ALPRAZOLAM 1 MG TAB PO PRN (21:26)
[2018-04-16] VITALS (8 sets, daily range): BP systolic 121–175; BP diastolic 71–90
[2018-04-16] MEDS: DICYCLOMINE HCL 20 MG TAB PO PRN (03:23)
[2018-04-16] MEDS: ONDANSETRON HCL INJ 2 MG/ML VIAL IV PRN ×4 (03:24→18:29)
[2018-04-16] MEDS: HYDROMORPHONE 1MG/1ML INJ IV PRN ×5 (05:08→22:58)
[2018-04-16 06:11] LABS: ANION GAP 15.6 mmol/L (8-16); BLOOD UREA NITROGEN 8 mg/dL (7-26); BUN/CREATININE RATIO 12 (6-25); CALCIUM 8.3 mg/dL (8.4-10.2); CARBON DIOXIDE 15 mmol/L (22-29); CHLORIDE 102 mmol/L (98-107); CREATININE, SERUM 0.65 mg/dL (0.57-1.11); EST GLOMERULAR FILTRATION RATE > 60 ML/MIN (60-); GLUCOSE 106 mg/dL (74-118); MAGNESIUM 1.4 MG/DL (1.3-2.1); POTASSIUM 3.6 mmol/L (3.5-5.1); SODIUM 129 mmol/L (136-145)
[2018-04-16] MEDS: INSULIN REGULAR, HUMAN 100 UNIT/1 ML 3ML VIAL SQ SCH ×4 (07:30→20:42)
[2018-04-16] MEDS: ONDANSETRON HCL 4 MG ORAL DISINTEGRATING TAB PO SCH ×2 (09:05→17:03)
[2018-04-16] MEDS: RIFAXIMIN 550 MG TABLET PO SCH ×2 (09:05→17:03)
[2018-04-16] MEDS: DILTIAZEM HCL 120 MG CAP CD PO SCH (09:05)
[2018-04-16] MEDS: LOSARTAN POTASSIUM 100 MG TAB PO SCH (09:05)
[2018-04-16] MEDS: CLOPIDOGREL BISULFATE 75 MG TAB PO SCH (09:05)
--- NOTE | 2018-04-16 12:55 | Progress Note ---
DATE: NO DICTATION, LENGTH 1 SECOND. Job#: [id number]
--- NOTE | 2018-04-16 14:36 | Discharge Summary ---
This is a 62-year-old female with a past medical history positive for chronic pain syndrome, fibromyalgia, hypertension, history of coronary artery disease, multiple abdominal surgeries that range from appendectomy, cholecystectomy, hysterectomy, hernia repair, infected mesh requiring repeat laparotomy, small-bowel resection due to small-bowel obstruction, chronic pain syndrome, TIAs. She was at [facility] for nausea, vomiting and diarrhea. She was evaluated in the emergency room and admitted to the hospital, then sent home. She continued to have nausea, vomiting and diarrhea. She was brought here. Patient tested negative for C. difficile. CT of the abdomen did not show any small-bowel obstruction. She has a small fluid collection from the pain pump removal that she had before. She was started on IV fluids and antiemetics. She finally was able to tolerate the diet. She is doing better. Blood pressure is under better control right now. Patient might be able to go home. She complains of generalized pain, which is a chronic pain. Dr. Dunn saw her from the gastroenterology point of view. His partner recommended to have an outpatient endoscopy. Dr. Plata saw her from the pain management point of view, but she does have pain management on outside. Patient is going to go home hopefully tomorrow as long as the blood pressure is okay. Dr. Huston will decide about whether or not the patient needs antibiotics. She had a UTI but she has multiple allergies to every single antibiotic, so we will see if she needs any antibiotics upon discharge. She has no symptoms whatsoever or burning on urination. On physical exam, blood pressure is 152/71, temperature 99.0, heart rate 97 per minute, respiratory rate 20 per minute. Oxygen saturation is 98%. On the BMP, sodium 129, potassium 3.6, chloride 102. CO2 15, BUN 8, creatinine 0.65. Glucose 106. On the CBC, white blood count 10.1, hemoglobin 9.6, hematocrit 27.6, platelet count 336,000. AST 16, ALT 16, total bilirubin 0.4, alkaline phosphatase 98. FINAL IMPRESSION 1. Recurrent nausea and vomiting, most likely secondary to gastroparesis, which is completely resolved. 2. Chronic pain syndrome. 3. Hypokalemia, which is resolving . 4. Possible urinary tract infection. 5. Fibromyalgia. 6. Anemia of chronic disease. 7. Diabetes mellitus, type 2. MEDICATIONS ON DISCHARGE: Alprazolam 1 mg at bedtime. Continue with her morphine and Dilaudid that she has been taking at home. Continue followup with pain management. Continue Plavix 75 mg daily and albuterol q.6 h. She taking Cardizem 240 mg daily. Clonidine was 0.1 mg twice a day. She was taking valsartan; but since it was having a recall, we are going to put her on losartan 100 mg daily. Continue Lipitor 40 mg daily. Continue with metformin. Continue Zofran 4 mg q.4 h. as needed and Xifaxan 550 mg twice a day. Tentative discharge for tomorrow depending on whether or not the blood pressure is under control. If the blood pressure is under control, the patient might be able to go home. Dr. Huston will decide about the antibiotics. Follow up with her primary care physician and pain management as an outpatient. LISA HUTCHINSON MD Job#: [id number]
[2018-04-16] MEDS ORDERED: NON-FORMULARY MEDICATION (Morphine Sulfate 30 MG) PO SCH (15:00)
[2018-04-16] MEDS: MORPHINE SULFATE 30 MG TAB ER PO SCH (17:03)
[2018-04-16] MEDS ORDERED: DOXEPIN HCL 25 MG CAP PO SCH (21:00)
[2018-04-17] VITALS: BP 159/97
[2018-04-17] MEDS: ALPRAZOLAM 1 MG TAB PO PRN (00:06)
[2018-04-17 04:00] VITALS: BP 94/81
[2018-04-17] MEDS: DICYCLOMINE HCL 20 MG TAB PO PRN (06:13)
[2018-04-17 07:20] VITALS: BP 110/78
[2018-04-17] MEDS: INSULIN REGULAR, HUMAN 100 UNIT/1 ML 3ML VIAL SQ SCH ×2 (07:30→11:30)
[2018-04-17 07:53] VITALS: BP 118/105
[2018-04-17 07:58] VITALS: BP 110/78
[2018-04-17] MEDS: HYDROMORPHONE 1MG/1ML INJ IV PRN (08:05)
[2018-04-17] MEDS: ONDANSETRON HCL 4 MG ORAL DISINTEGRATING TAB PO SCH (09:00)
[2018-04-17] MEDS ORDERED: DILTIAZEM HCL 180 MG CAP CD PO SCH (09:00)
[2018-04-17] MEDS: LOSARTAN POTASSIUM 100 MG TAB PO SCH (09:04)
[2018-04-17] MEDS: RIFAXIMIN 550 MG TABLET PO SCH (09:05)
[2018-04-17] MEDS: CLOPIDOGREL BISULFATE 75 MG TAB PO SCH (09:05)
[2018-04-17] MEDS: MORPHINE SULFATE 30 MG TAB ER PO SCH (09:05)
[2018-04-17 11:55] VITALS: BP 115/58
--- NOTE | 2018-04-17 14:59 | Discharge Summary ---
HISTORY OF PRESENT ILLNESS: Patient is a 62-year-old female with past medical history positive for chronic pain syndrome, history of fibromyalgia, history of hypertension, diabetes, multiple allergies. Came here with nausea and vomiting and diarrhea. Nausea, vomiting, diarrhea resolved. The diarrhea was checked for stool for C difficile, came back negative. Patient is tolerating a diet. Blood pressure is a lot better. She had very high blood pressure when she came because of unable to tolerate pills. Patient is going home today. She was seen by Dr. Plata for pain management and Dr. Dunn' partner for gastroenterology and the patient was told to have an outpatient EGD for the epigastric pain. PHYSICAL EXAM: HEART: Shows regular rhythm, normal S1 and S2 sounds. LUNGS: Are clear bilaterally. ABDOMEN: Is soft. No tenderness, no distention, no visceromegaly. VITAL SIGNS: Blood pressure 118/78, temperature 96.3, heart rate 95 per minute, respiratory rate is 20 per minute, oxygen saturation 100%. On the CBC: White blood count 10.15, hemoglobin 9.6, hematocrit 27.6, platelet count 333,000. The last blood sugar is 98. The BMP shows sodium 129, potassium 3.6, chloride 102, carbon dioxide 15, BUN 8, creatinine 0.65, glucose 106. Magnesium 1.4, calcium 8.3. The CT of the abdomen that was done over here showed some mild focal dilatation on a single loop of proximal jejunum which is likely secondary to peristalsis. There are no surrounding inflammatory changes, no wall thickening, and the loop tapers to normal caliber. The rest of the bowel was normal in caliber, no evidence of obstruction, mild prominence of the common bile duct likely reflecting postcholecystectomy status. The hepatic steatosis is predominantly involving the right hepatic lobe. A 5.3 cm fluid collection in the subcutaneous soft tissues on the left anterior lateral pelvis, and according to Dr. Huston that does not look like an abscess and it is not even tender. FINAL IMPRESSIONS: 1. Acute episode of vomiting and diarrhea, which is resolved. 2. Chronic pain syndrome. 3. Hypertension. 4. Diabetes mellitus type 2. PLAN OF TREATMENT: The patient is going to be discharged home with the medication already dictated in my prior discharge summary. Patient will continue with her morphine and Dilaudid regimen at home. She also will continue Plavix 75 mg daily because of a history of coronary artery disease. Continue albuterol 2 puffs q.6 hours as needed for shortness of breath. She is also taking clonidine 0.1 mg twice a day. Lipitor 40 mg daily. Bentyl 20 mg q.6 hours. She is also on doxepin 50 mg at bedtime. Alprazolam 1 mg at night p.r.n. for sleep. She is also taking Xifaxan 550 mg twice a day. Continue losartan 100 mg daily. Zofran 4 mg twice a day as needed for nausea and vomiting. Diltiazem 180 mg daily. She is also on metformin. Patient had an opportunity to ask all the questions. I answered all of her concerns. She is going to follow up with her primary care physician. Also she is going to follow up with her new pain management physician. I also recommended her to follow up with Dr. Dunn for an outpatient endoscopy because of the abdominal pain that she had, which is totally resolved right now. Vital signs are stable. Patient is afebrile, tolerating a diet. LISA HUTCHINSON MD Job#: [id number] EV
--- NOTE | 2018-04-17 17:47 | Progress Note ---
DATE: April 16, 2018 SUBJECTIVE: Patient reports improvement in nausea, tolerating oral feeds. REVIEW OF SYSTEMS GENERAL: No fever or chills. CVS: No chest pain, palpitations. RESPIRATORY: No cough or expectoration. MEDICATIONS: Reviewed in the MAR. PHYSICAL EXAMINATION VITAL SIGNS: Temperature 97.1, pulse 98, respirations 20, blood pressure 161/90, oxygen saturation 100% on room air. GENERAL: Not in any acute distress. Oral mucosa is moist. Anicteric sclerae. CVS: S1, S2 regular. LUNGS: Bilaterally grossly clear. ABDOMEN: Soft, nondistended. Healed surgical scars. Mild left lower quadrant tenderness has improved. No rebound, rigidity, or guarding. EXTREMITIES: Warm. No leg edema. LABS: No lab drawn today. IMPRESSIONS 1. Urinalysis tract infection. Infectious disease is following. Culture growing Proteus mirabilis and Klebsiella. 2. Nausea and vomiting, resolved. 3. Possible bacterial overgrowth due to multiple abdominal surgeries. On Xifaxan. PLAN: Patient can be discharged on Xifaxan for 1 week. Correct electrolytes. Patient to follow with Dr. Ferreira (patient's remediation project engineer) within 1 to 2 weeks post discharge. Job#: [id number] NELLA
[2018-04-17] MEDS ORDERED: ATORVASTATIN 40 MG TAB PO SCH (21:00)
== END 2018-04-17 12:47 | disposition home or self-care (01) | DRG 74 ==
LOC: ER 19:11 → ERHOLD 21:45 → MED/SURG3 04-13 13:43
PROVIDERS: ADMIT Internal Medicine; ATTEND Internal Medicine
DX: E11.43 Type 2 diabetes mellitus with diabetic autonomic (poly)neuropathy (principal); E87.1 Hypo-osmolality and hyponatremia; F11.20 Opioid dependence, uncomplicated; L76.34 Postprocedural seroma of skin and subcutaneous tissue following other procedure; N30.00 Acute cystitis without hematuria; K31.84 Gastroparesis; B96.1 Klebsiella pneumoniae [K. pneumoniae] as the cause of diseases classified elsewhere; B96.4 Proteus (mirabilis) (morganii) as the cause of diseases classified elsewhere; I25.10 Atherosclerotic heart disease of native coronary artery without angina pectoris; I10 Essential (primary) hypertension; E87.6 Hypokalemia; E86.0 Dehydration; M79.7 Fibromyalgia; Z86.73 Personal history of transient ischemic attack (TIA), and cerebral infarction without residual deficits; Z87.891 Personal history of nicotine dependence; K21.9 Gastro-esophageal reflux disease without esophagitis; K58.9 Irritable bowel syndrome, unspecified; Z86.11 Personal history of tuberculosis; I65.29 Occlusion and stenosis of unspecified carotid artery; G89.4 Chronic pain syndrome; Z88.1 Allergy status to other antibiotic agents; Z88.0 Allergy status to penicillin; Z88.2 Allergy status to sulfonamides; Z91.048 Other nonmedicinal substance allergy status; D63.8 Anemia in other chronic diseases classified elsewhere; E11.42 Type 2 diabetes mellitus with diabetic polyneuropathy; J44.9 Chronic obstructive pulmonary disease, unspecified
CPT/HCPCS: 36415; 74022; 74176; 80048; 80053; 81001; 82150; 82550; 82553; 82948; 83630; 83690; 83735; 84132; 84484; 85025; 87045; 87086; 87186; 87493; 93005; 96361; 99284; J0360; J1170; J2405; J2765; J3480; J7030

== ENCOUNTER → 2018-05-28 | Outpatient (CLI) | payer OTHER ==
[~2018-05-28] MED LIST changes: +DILAUDID2 MG PO; +DILTIAZEM 24HR180 MG; +LASIX40 MG PO; +ZOFRAN ODT4 MG PO
--- NOTE | 2018-05-29 09:59 | Diagnostic Imaging Report ---
EXAMINATION: MRI of the lumbar spine without contrast HISTORY: Low back pain radiating to the bilateral lower extremities with weakness COMPARISON: None. TECHNIQUE: Sagittal T1, T2, STIR; axial T2 and proton density. FINDINGS: It is assumed that there are 5 lumbar vertebrae. Curvature/Alignment: Mild thoracolumbar kyphosis related to anterior wedging of the T12 and L1 vertebral bodies. Minimal retrolisthesis at T12-L1. Subtle right-sided curvature. Vertebrae: No evidence of recent fracture, infection, or neoplasm. Mild chronic compression fracture of the L1 vertebral body with depression of the superior endplate and decreased vertebral body height anteriorly by approximately 30%, no posterior retropulsion or canal stenosis. Minimal chronic compression deformity of the T11 vertebral body with decreased vertebral body height centrally by approximately 25%, without posterior retropulsion or canal stenosis. Overall minimal decreased vertebral body height of T10 as well. Prominent benign hemangioma in the T12 vertebral body. Conus: Normal, terminating at L1 Cauda equina: Unremarkable. Lower thoracic: As above Paraspinal soft tissues: Moderate atrophy of the paraspinal muscles. Partially visualized T2 hyperintense probable cyst, in the left kidney. Degenerative changes: L1-L2: Mild symmetric disc bulge without canal or foraminal stenoses L2-L3: Unremarkable. L3-L4: Minimal disc bulge and facet arthrosis without stenoses L4-L5: Mild symmetric disc bulge and moderate facet processes. No significant spinal canal stenosis. Mild bilateral foraminal stenoses. L5-S1: Mild symmetric disc bulge, moderate facet arthrosis. No significant spinal canal or foraminal stenosis. IMPRESSION: 1. Mild thoracolumbar kyphosis related to chronic compression fractures of T11 and L1. 2. Mild degenerative changes at L4-L5 and L5-S1 without significant spinal canal or foraminal stenosis, particularly there is no evidence of nerve root compression. Signed by: Dr. Lisa Hobbs M.D. on 05/29/2018 9:54 AM
--- NOTE | 2018-05-29 10:23 | Diagnostic Imaging Report ---
EXAMINATION: MRI of the cervical spine without contrast HISTORY: Severe chronic neck pain, degenerated disc at C4-C7. Fibromyalgia. COMPARISON: None available TECHNIQUE: Sagittal T1, T2, STIR; axial T2, gradient echo. Image quality: Motion artifact limits evaluation of some of the sequences. FINDINGS: Curvature: Normal lordosis. Vertebrae: No evidence of neoplasm, infection, or fracture. Mild chronic compression fracture of the T3 vertebral body, with decreased height by approximately 20%, no posterior retropulsion and no canal stenosis. Foramen magnum: No mass, Chiari malformation, or basilar invagination. Spinal Cord: Normal size and signal intensity. Soft Tissues: Unremarkable. Degenerative changes: C1-C2 to C4-C5: No significant degenerative changes, no spinal canal or foraminal stenosis. C5-C6: Small disc osteophyte complex formation, bilateral uncovertebral and facet arthrosis. Moderate bilateral foraminal stenoses. C6-C7: Disc osteophyte complex formation, bilateral uncovertebral and facet arthrosis. Minimal spinal canal and mild bilateral foraminal stenoses. C7-T1: Unremarkable. IMPRESSION: 1. Moderate degenerative bilateral foraminal stenosis at C5-C6. 2. Mild degenerative spinal canal and bilateral foraminal stenosis at C6-C7. Signed by: Dr. Lisa Hobbs M.D. on 05/29/2018 10:19 AM
== END ==
LOC: MRI 09:38
PROVIDERS: ATTEND Physical Medicine & Rehabilitation
DX: M54.2 Cervicalgia (principal); M54.5 Low back pain
CPT/HCPCS: 72141; 72148

== ENCOUNTER 2018-12-02 15:16 | Inpatient (IN) | payer OTHER ==
[~2018-12-02] VITALS: Ht 162.6 cm; Wt 67.3 kg
[~2018-12-02 15:16] MED LIST changes: -DILTIAZEM 24HR180 MG; +DILTIAZEM 24HR180 MG PO; -METFORMIN HCL500 M3; +METFORMIN HCL500 M3 PO
--- OUTSIDE RECORDS SUMMARY | 2018-12-02 15:20 | XMS REPORT | Clinical Summary ---
Author Author [employer] [facility] Address Unknown Phone Unavailable Care Team Providers Care Drying Tunnel Operator Name Role Phone Andie San MD PCP Allergies Comments Active Allergy Reactions Severity Noted Date Adhesive Tape-Silicones 04/16/2017 Aspirin 04/16/2017 Azithromycin 04/16/2017 [place] Oil 04/16/2017 Codeine 04/16/2017 Prochlorperazine 04/16/2017 Propoxyphene 04/16/2017 N-Acetaminophen Propoxyphene 04/16/2017 Doxycycline 04/16/2017 Erythromycin 04/16/2017 Iodine 04/16/2017 Cephalexin 04/16/2017 Levofloxacin 04/16/2017 Pregabalin 04/16/2017 Mineral Oil 04/16/2017 Oxycodone 04/16/2017 Penicillins 04/16/2017 Oxycodone-Acetaminophen 04/16/2017 Oxycodone 04/16/2017 [id number] Sulfa (Sulfonamide 04/16/2017 Antibiotics) Pentazocine Lactate 04/16/2017 Tetracyclines 04/16/2017 Tramadol 04/16/2017 Medications End Date Status Medication Sig Dispensed Refills Start Date Active albuterol (PROAIR Inhale 2 0 HFA,PROVENTIL puffs every 6 HFA,VENTOLIN HFA) 90 (six) hours mcg/actuation inhaler as needed for wheezing. Active ALPRAZolam (XANAX) 1 MG Take 1 mg by 0 tablet mouth daily. Active ALPRAZolam (XANAX) 1 MG Take 2 mg by 0 tablet mouth nightly. Active atorvastatin (LIPITOR) 40 Take 40 mg by 0 MG tablet mouth daily. Active cetirizine (ZyrTEC) 10 MG Take 10 mg by 0 tablet mouth daily. Active clopidogrel (PLAVIX) 75 Take 75 mg by 0 mg tablet mouth daily. Active cyclobenzaprine Take 10 mg by 0 (FLEXERIL) 10 mg tablet mouth 4 (four) times a day as needed for muscle spasms. Active dicyclomine (BENTYL) 20 Take 20 mg by 0 mg tablet mouth 3 (three) times a day. Active doxepin (SINEquan) 50 MG Take 50 mg by 0 capsule mouth daily. Active hydromorPHONE (DILAUDID) Take 8 mg by 0 8 MG tablet mouth 3 (three) times a day. Active meclizine (ANTIVERT) 25 Take 25 mg by 0 mg tablet mouth 4 (four) times a day. Active metFORMIN (GLUCOPHAGE) Take 500 mg 0 500 mg tablet by mouth 2 (two) times a day with meals. Active olmesartan (BENICAR) 20 Take 20 mg by 0 MG tablet mouth 2 (two) times a day. Active ondansetron (ZOFRAN) 4 MG Take 4 mg by 0 tablet mouth every 8 (eight) hours as needed for nausea or vomiting. Active RABEprazole (ACIPHEX) 20 Take 20 mg by 0 mg EC tablet mouth 2 (two) times a day. Active triamterene-hydrochloroth Take 1 tablet 0 iazid (MAXZIDE-25) by mouth 37.5-25 mg per tablet daily. Active ipratropium-albuterol Take 3 mL by 0 (DUO-NEB) 0.5-2.5 mg/mL nebulization nebulizer 3 (three) times a day. Active fluticasone-salmeterol Inhale 1 puff 0 (ADVAIR) 250-50 mcg/dose 2 (two) times DISKUS a day. Active Problems Problem Noted Date Intractable nausea and vomiting 04/17/2017 Social History Date Tobacco Use Types Packs/Day Years Used Never Smoker Alcohol Use Drinks/Week oz/Week Comments No Sex Assigned at Date Recorded Not on file Industry Job Start Date Occupation Not on file Not on file Not on file Travel End Travel History Travel Start No recent travel history available. Last Filed Vital Signs Not on file Plan of Treatment Health Maintenance Due Date Last Done Comments CERVICAL CANCER SCREENING 1977 BREAST CANCER SCREENING 2006 COLON CANCER SCREENING 2006 SHINGLES VACCINES (#1) 2006 INFLUENZA VACCINE 04/08/2018 Implants Device Identifier Shelf Expiration Date Model / Serial / Lot Implanted Type Area Manufactur er [employer] Synchromed Ii Pain Pump Morphine Results Not on fileafter 12/01/2017 Insurance Payer Benefit Subscriber ID Type Phone Address Plan / Group xxxxxxxxxxx [employer] [place] [employer] Advance Directives Patient has advance care planning documents on file. For more information, randall marshall contact: Silvino Aquino [address] [place] [address]
--- OUTSIDE RECORDS SUMMARY | 2018-12-02 15:23 | XMS REPORT | Continuity of Care Document ---
Author Author [facility] Interface Address Unknown Phone Unavailable Problems Problem Status Onset Date Classification Date Reported Comments Source Hypertensive urgency 04/21/2018 10/26/2018 [facility] WEAKNESS/ VOMITING/CHEST PAIN Active 04/01/2018 [facility] Edema of both lower legs due to peripheral venous insufficiency 03/07/2018 03/10/2018 [facility] Superficial thrombophlebitis of left leg 03/07/2018 03/10/2018 [facility] Chronic hyponatremia 03/07/2018 03/10/2018 [facility] LEFT FOOT PAIN Active 03/07/2018 [facility] SYNCOPE Active 02/21/2018 [facility] COPD exacerbation 02/09/2018 02/12/2018 [facility] RESPIRATORY DISTRESS Active 02/08/2018 [facility] Discharge Diagnosis: Uncontrolled hypertension 05/07/2017 05/10/2017 [facility] Discharge Diagnosis: Dyspnea, unspecified 05/07/2017 05/10/2017 [facility] SOB Active 04/30/2017 [facility] SYNCOPAL EPISODE Active 04/14/2017 [facility] G89.4 Active 04/24/2016 [facility] UNK Active 04/24/2016 [facility] Discharge Diagnosis: Shingles 01/17/2016 01/20/2016 [place] RASH Active 01/17/2016 [facility] ABD PAIN Active 08/03/2012 [facility] ABD PAIN, ANEMIA SMALL BOWEL RESECTION O Active 08/03/2012 [facility] Acute pain<sup>1</sup> Active Problem 08/06/2012 1s/p abdominal incision [facility] Chronic pain<sup>2</sup> Active Problem 08/06/2012 2DX: fibromyalgia [facility] Emesis Active Problem 08/06/2012 [facility] Nausea Active Problem 08/06/2012 [facility] Pain assessment Active Problem 08/06/2012 [facility] Acute pain<sup>1</sup> Active Problem 10/26/2018 s/p abdominal incision [facility] Bronchitis, chronic Active Problem 10/26/2018 [facility] Chronic pain<sup>2</sup> Active Problem 10/26/2018 DX: fibromyalgia [facility] Outpatient [facility] COPD (<span ID="[id number]">Confirmed</span>) Active Problem 10/26/2018 [facility] Outpatient [facility] DM (<span ID="[id number]">Confirmed</span>) Active Problem 10/26/2018 [facility]patient [facility] Emesis Active Problem 10/26/2018 [facility] HTN (<span ID="[id number]">Confirmed</span>) Active Problem 10/26/2018 [facility] Outpatient [facility] CO (<span ID="[id number]">Confirmed</span>) Active Problem 10/26/2018 [facility] Outpatient Imaging [facility] Nausea Active Problem 10/26/2018 [facility] Outpatient Imaging [facility] Pain assessment Active Problem 10/26/2018 [facility]patient [facility] Angina pectoris Active Problem 10/26/2018 [facility] Degenerative disc disease at L5-S1 level Active Problem 10/26/2018 [facility] Outpatient Imaging [facility] Shoulder disorder<sup>3</sup> Active Problem 10/26/2018 lt shoulder surgery x 3 [facility] Fibromyalgia Active Problem 10/26/2018 [facility] Bowel obstruction Active Problem 10/26/2018 [facility] Scoliosis Active Problem 10/26/2018 [facility] CHF (<span ID="[id number]">Confirmed</span>) Active Problem 10/26/2018 [facility] Emphysema of lung Active Problem 10/26/2018 [facility] Emphysema Active Problem 05/17/2016 [facility] Hypo-osmolality and hyponatremia 10/26/2018 [facility] Unspecified protein-calorie malnutrition 10/26/2018 [facility] Old myocardial infarction 10/26/2018 [facility] Scoliosis, unspecified 10/26/2018 [facility] Emphysema, unspecified 10/26/2018 [facility] Hypertensive heart disease with heart failure 10/26/2018 [facility] Hypokalemia 10/26/2018 [facility] Nicotine dependence, cigarettes, uncomplicated 10/26/2018 [facility] Anemia in other chronic diseases classified elsewhere 10/26/2018 [facility] Acute gastritis without bleeding 10/26/2018 [facility] Dehydration 10/26/2018 [facility] Fibromyalgia 10/26/2018 [facility] Hypocalcemia 10/26/2018 [facility] Hypomagnesemia 10/26/2018 [facility] Other disorders of phosphorus metabolism 10/26/2018 [facility] Heart failure, unspecified 10/26/2018 [facility] Major depressive disorder, single episode, unspecified 10/26/2018 [facility] Chronic pain syndrome 10/26/2018 [facility] Family history of ischemic heart disease and other diseases of the circulatory system 10/26/2018 [facility] Other intervertebral disc degeneration, lumbosacral region 10/26/2018 [facility] Type 2 diabetes mellitus with diabetic peripheral angiopathy without gangrene 10/26/2018 [facility] Unspecified chronic bronchitis 10/26/2018 [facility] ABDMNAL PAIN UNSPCF SITE Active [facility] LT SHOULDER Active [facility] ESSENTIAL (PRIMARY) HYPERTENSION Active [facility] CHRONIC OBSTRUCTIVE PULMONARY DISEASE W Active [facility] HYPOKALEMIA Active [facility] HYPO-OSMOLALITY AND HYPONATREMIA Active [facility] SYNCOPE AND COLLAPSE Active [facility] HYPERTENSIVE CRISIS, UNSPECIFIED Active [facility] Medications Medication Details Route Status Patient Instructions Ordering Provider Order Date Source pantoprazole 40 mg oral enteric coated tablet 40 mg=1 tab, PO, Before Dinner, # 30 tab, 0 Refill(s), Pharmacy: [id number] Active 04/08/2018 [facility] Metoclopramide 10 MG Oral Tablet [Reglan] 10 mg=1 tab, PO, Before Meals & Bedtime, X 14 day, # 56 tab, 0 Refill(s), Pharmacy: [id number] No Longer Active 04/08/2018 [facility] Docusate Sodium 50 MG / sennosides, MCC 8.6 MG Oral Tablet 1 tab, PO, BID, X 10 day, # 20 tab, 0 Refill(s), Pharmacy: [id number] No Longer Active 04/08/2018 [facility] Ondansetron 4 MG Disintegrating Tablet [Zofran] 4 mg, PO, TID, PRN Nausea, # 12 tab, 0 Refill(s), Pharmacy: [id number] Active 04/08/2018 [facility] Zofran ODT 4 mg, 1 tab, Route: PO, Drug form: TABDIS, Q4H, Dosing Weight 82.3, kg, PRN Nausea, Start date: 04/08/18 16:41:00 CDT, Duration: 30 day, Stop date: 05/08/18 16:40:00 CDTNotes: (Same as: Zofran ODT) Inactive 04/08/2018 [facility] Metoclopramide 10 MG Oral Tablet [Reglan] 10 mg, 1 tab, Route: PO, Drug form: TAB, Before Meals & Bedtime, Dosing Weight 82.3, kg, Start date: 04/08/18 16:30:00 CDT, Duration: 30 day, Stop date: 05/08/18 11:30:00 CDTNotes: (Same as: Reglan) Take 30 min before meals Inactive 04/08/2018 [facility] Calcium Gluconate 3,000 mg, 30 mL, Route: IVPB, ONCE, Dosing Weight 82.3, kg, Start date: 04/08/18 9:38:00 CDT, Stop date: 04/08/18 9:38:00 CDTNotes: WASTE: F/P - Sink; E - [employer] Trash Bin Inactive 04/08/2018 [facility] normal saline 0.9% IV 500 mL 500 mL, Rate: 500 ml/hr, Infuse over: 1 hr, Route: IV, Dosing Weight 82.3 kg, Total Volume: 500, Start date: 04/08/18 0:29:00 CDT, Duration: 1 doses or times, Stop date: 04/08/18 1:28:00 CDT, 1.97, m2 Inactive 04/08/2018 [facility] Senokot S 1 tab, Route: PO, Drug Form: TAB, Dosing Weight 82.3, kg, BID, NOW, Start date: 04/07/18 18:02:00 CDT, Stop date: 05/07/18 17:00:00 CDTNotes: (Same as Senokot-S) Equiv. to Tabitha-Colace. No Longer Active 04/07/2018 [facility] Reglan 10 mg, 2 mL, Route: IVP, Drug form: INJ, Q6H, Dosing Weight 82.3, kg, Priority: NOW, Start date: 04/07/18 18:01:00 CDT, Stop date: 05/07/18 18:00:00 CDTNotes: (Same as: Reglan) No Longer Active 04/07/2018 [facility] magnesium sulfate 1 gm, 100 mL, Route: IVPB, Drug form: INJ, Q1H, Start date: 04/07/18 16:00:00 CDT, Duration: 2 doses or times, Stop date: 04/07/18 17:00:00 CDTNotes: WASTE: F/P - Sink; E - [employer] Trash Bin Inactive 04/07/2018 [facility] Magnesium Sulfate 2 gm, Route: IVPB, Drug form: INJ, ONCE, Dosing Weight 82.3, kg, Total dose=2 gm, Start date: 04/07/18 15:46:00 CDT, Stop date: 04/07/18 15:46:00 CDT Inactive 04/07/2018 [facility] Docusate Sodium 50 MG / sennosides, MCC 8.6 MG Oral Tablet 1 tab, Route: PO, Drug Form: TAB, Dosing Weight 82.3, kg, BID, NOW, Start date: 04/07/18 11:01:00 CDT, Stop date: 04/07/18 18:02:00 CDTNotes: (Same as Senokot- S) Equiv. to Atbitha-Colace. Inactive 04/07/2018 [facility] Reglan 10 mg, 2 mL, Route: IVP, Drug form: INJ, Q6H, Dosing Weight 82.3, kg, Priority: NOW, Start date: 04/07/18 10:57:00 CDT, Stop date: 04/07/18 18:01:00 CDTNotes: (Same as: Reglan) Inactive 04/07/2018 [facility] Zofran 4 mg, 2 mL, Route: IVP, Drug form: INJ, Q4H, Dosing Weight 82.3, kg, PRN Nausea, Start date: 04/07/18 10:57:00 CDT, Duration: 30 day, Stop date: 05/07/18 10:56:00 CDTNotes: (Same as: Zofran) MEDICATION WASTE Product Size: 4 mg Product Wasted: ___ mg No Longer Active 04/07/2018 [facility] normal saline 0.9% IV 1,000 mL 1,000 mL, Rate: 125 ml/hr, Infuse over: 8 hr, Route: IV, Dosing Weight 82.3 kg, Total Volume: 1,000, Start date: 04/07/18 7:44:00 CDT, Duration: 30 day, Stop date: 05/07/18 7:43:00 CDT, 1.97, m2 No Longer Active 04/07/2018 [facility] Alprazolam 2 mg, Route: PO, Bedtime, Dosing Weight 82.3, kg, Start date: 04/06/18 21:00:00 CDT, Duration: 30 day, Stop date: 05/05/18 21:00:00 CDT Inactive 04/07/2018 [facility] Flexeril 10 mg, 1 tab, Route: PO, Drug form: TAB, Bedtime, Dosing Weight 86.364, kg, Start date: 04/06/18 21:00:00 CDT, Duration: 30 day, Stop date: 05/05/18 21:00:00 CDTNotes: (Same As: Flexeril) No Longer Active 04/07/2018 [facility] Protonix 40 mg, 1 tab, Route: PO, Drug form: ECTAB, Before Dinner, Dosing Weight 82.3, kg, Start date: 04/06/18 16:30:00 CDT, Duration: 30 day, Stop date: 05/05/18 16:30:00 CDTNotes: Tablet should not be chewed or crushed. (Same as: Protonix) No Longer Active 04/06/2018 [facility] Lipitor 40 mg, 1 tab, Route: PO, Drug form: TAB, QPM, Dosing Weight 86.364, kg, Start date: 04/06/18 16:00:00 CDT, Duration: 30 day, Stop date: 05/05/18 16:00:00 CDTNotes: (Same as: Lipitor) No Longer Active 04/06/2018 [facility] heparin sodium, porcine 2500 UNT/ML Injectable Solution 5,000 unit, 1 mL, Route: SUB-Q, Drug form: INJ, Q8H, Dosing Weight 82.3, kg, Start date: 04/06/18 16:00:00 CDT, Duration: 30 day, Stop date: 05/06/18 8:00:00 CDTNotes: porcine heparin No Longer Active 04/06/2018 [facility] Zofran 4 mg, 2 mL, Route: IVP, Drug form: INJ, Q8H, Dosing Weight 82.3, kg, PRN Nausea, Start date: 04/06/18 13:03:00 CDT, Duration: 30 day, Stop date: 05/06/18 13:02:00 CDTNotes: (Same as: Zofran) MEDICATION WASTE Product Size: 4 mg Product Wasted: ___ mg No Longer Active 04/06/2018 [facility] Zofran 4 mg, Route: IVP, Drug form: INJ, Q6H, Dosing Weight 82.3, kg, PRN Nausea, Start date: 04/06/18 13:01:00 CDT, Duration: 30 day, Stop date: 05/06/18 13:00:00 CDT Inactive 04/06/2018 [facility] valsartan 160 mg, 1 tab, Route: PO, Drug form: TAB, Daily, Dosing Weight 86.364, kg, Start date: 04/06/18 9:00:00 CDT, Duration: 30 day, Stop date: 05/05/18 9:00:00 CDTNotes: Same as Diovan No Longer Active 04/06/2018 [facility] Meclizine 25 mg, 1 tab, Route: PO, Drug form: TAB, QID, Dosing Weight 86.364, kg, PRN as needed for nausea/vomiting, Start date: 04/06/18 9:00:00 CDT, Duration: 30 day, Stop date: 05/05/18 21:00:00 CDTNotes: ( Same as: Antivert) No Longer Active 04/06/2018 [facility] Advair Diskus 500 mcg-50 mcg inhalation powder 1 puff, Route: INHALATION, Drug Form: AERO, Dosing Weight 86.364, kg, BID, Start date: 04/06/18 9:00:00 CDT, Duration: 30 day, Stop date: 05/05/18 17:00:00 CDT No Longer Active 04/06/2018 [facility] Plavix 75 mg, 1 tab, Route: PO, Drug form: TAB, Daily, Dosing Weight 86.364, kg, Start date: 04/06/18 9:00:00 CDT, Duration: 30 day, Stop date: 05/05/18 9:00:00 CDTNotes: (Same As: Plavix) No Longer Active 04/06/2018 [facility] Zyrtec 10 mg, 1 tab, Route: PO, Drug form: TAB, Daily, Dosing Weight 86.364, kg, Start date: 04/06/18 9:00:00 CDT, Duration: 30 day, Stop date: 05/05/18 9:00:00 CDTNotes: (Same As: Zyrtec) No Longer Active 04/06/2018 [facility] Clonidine Hydrochloride 0.1 MG Oral Tablet 0.1 mg, 1 tab, Route: PO, Drug form: TAB, BID, Dosing Weight 86.364, kg, Start date: 04/06/18 9:00:00 CDT, Duration: 30 day, Stop date: 05/05/18 21:00:00 CDTNotes: (Same As: Catapres) No Longer Active 04/06/2018 [facility] pneumococcal capsular polysaccharide type 1 vaccine / pneumococcal capsular polysaccharide type 10A vaccine / pneumococcal capsular polysaccharide type 11A vaccine / pneumococcal capsular polysaccharide type 12F vaccine / pneumococcal capsular polysacchar 0.5 mL, Route: IM, Drug Form: INJ, ONCALL, Start date: 04/06/18 9:00:00 CDT, Duration: 30 day, Stop date: 05/06/18 8:59:00 CDTNotes: (Same as: Pneumovax 23) Refrigerate No Longer Active 04/06/2018 [facility] Saline Flush 0.9% 10 ml, Route: IVP, Drug Form: INJ, Dosing Weight 86.364, kg, Q12H, Start date: 04/06/18 9:00:00 CDT, Duration: 30 day, Stop date: 05/05/18 21:00:00 CDTNotes: (Same as: BD Posiflush) No Longer Active 04/06/2018 [facility] Metformin 500 mg, 1 tab, Route: PO, Drug form: TAB, Breakfast, Dosing Weight 86.364, kg, Start date: 04/06/18 8:00:00 CDT, Duration: 30 day, Stop date: 05/05/18 8:00:00 CDTNotes: (Same as: Glucophage) Take with meal No Longer Active 04/06/2018 [facility] Pulmicort Respules 0.5 mg, 2 mL, Route: INHALATION, Drug form: SUSP, RBID, Start date: 04/06/18 8:00:00 CDT, Duration: 30 day, Stop date: 05/05/18 20:00:00 CDTNotes: (Same As: Pulmicort) No Longer Active 04/06/2018 [facility] Dicyclomine 20 mg, 1 tab, Route: PO, Drug form: TAB, TID- Meals, Dosing Weight 86.364, kg, Start date: 04/06/18 8:00:00 CDT, Duration: 30 day, Stop date: 05/05/18 17:00:00 CDTNotes: (Same as: Bentyl) No Longer Active 04/06/2018 [facility] Alprazolam 1 MG Oral Tablet [Xanax] 2 mg, 2 tab, Route: PO, Drug form: TAB, Bedtime, Dosing Weight 86.364, kg, Priority: NOW, Start date: 04/06/18 2:20:00 CDT, Duration: 30 day, Stop date: 05/05/18 21:00:00 CDTNotes: With food or milk (Same as: Xanax) No Longer Active 04/06/2018 [facility] albuterol 2.49 mg, 3 mL, Route: INHALATION, Drug form: SOLN, RQ6H, Start date: 04/06/18 2:00:00 CDT, Duration: 30 day, Stop date: 05/05/18 20:00:00 CDTNotes: SEE RT DOCUMENTATION (Same as: Proventil) No Longer Active 04/06/2018 [facility] morphine 15 mg oral tablet, extended release 15 mg, 1 tab, Route: PO, Drug form: ERTAB, Q12H, Dosing Weight 86.364, kg, Priority: NOW, Start date: 04/05/18 22:23:00 CDT, Duration: 30 day, Stop date: 05/05/18 21:00:00 CDTNotes: Do not crush (Same as:Oramorph SR, MS Contin) No Longer Active 04/06/2018 [facility] Dilaudid 8 mg, 4 tab, Route: PO, Drug form: TAB, Q6H, Dosing Weight 86.364, kg, PRN Pain Score 6-10, Start date: 04/05/18 22:20:00 CDT, Duration: 30 day, Stop date: 05/05/18 22:19:00 CDTNotes: (Same as: Dilaudid) No Longer Active 04/06/2018 [facility] sodium phosphate 45 mmol, 15 mL, Route: IVPB, PRN, Dosing Weight 86.364, kg, PRN Abnormal Lab Result, Start date: 04/05/18 22:18:00 CDT, Duration: 30 day, Stop date: 05/05/18 22:17:00 CDT, FOR ICU USE ONLY No Longer Active 04/06/2018 [facility] Potassium Chloride 20 mEq, 1 tab, Route: PO, Drug form: ERTAB, PRN, Dosing Weight 86.364, kg, PRN Abnormal Lab Result, Start date: 04/05/18 22:18:00 CDT, Duration: 30 day, Stop date: 05/05/18 22:17:00 CDT, FOR ICU USE ONLYNotes: (Same as: K-Dur 20) "Do Not Crush" For patients unable to swallow tablet, dissolve in one half glass of water. Allow about 2 minutes for the tablets to disintegrate. Stir before giving to prepare slurry and administer. Please exclude Patients with feeding tube less than 14 Ivor[place] (Dobhoff, J-tube etc) and pediatric and patients. With food and full glass of water No Longer Active 04/06/2018 [facility] Magnesium Oxide 800 mg, 2 tab, Route: PO, Drug form: TAB, PRN, Dosing Weight 86.364, kg, PRN Abnormal Lab Result, FOR ICU USE ONLY, Start date: 04/05/18 22:18:00 CDT, Duration: 30 day, Stop date: 05/05/18 22:17:00 C DTNotes: (Same as: Mag-Ox 400) Magnesium oxide [id number] elemental magnesium Dose=____mg magnesium oxide (___mg elemental magnesium) No Longer Active 04/06/2018 [facility] Calcium Carbonate 500 MG Chewable Tablet 1,000 mg, 2 tab, Route: PO, Drug form: CHEWTAB, PRN, Dosing Weight 86.364, kg, PRN Abnormal Lab Result, FOR ICU USE ONLY, Start date: 04/05/18 22:18:00 CDT, Duration: 30 day, Stop date: 05/05/18 22:17:00 CDTNotes: (Same As: [place]) Calcium Carbonate 500 ld=162 mg elemental calcium Dose= mg calcium carbonate ( mg elemental calcium) No Longer Active 04/06/2018 [facility] Calcium Gluconate 1 gm, 10 mL, Route: IVPB, PRN, Dosing Weight 86.364, kg, PRN Abnormal Lab Result, Start date: 04/05/18 22:18:00 CDT, Duration: 30 day, Stop date: 05/05/18 22:17:00 CDT, FOR ICU USE ONLYNotes: WASTE: F/P - Sink; E - [employer] Trash Bin No Longer Active 04/06/2018 [facility] Magnesium Sulfate 2 gm, 50 mL, Route: IVPB, Drug form: INJ, PRN, Dosing Weight 86.364, kg, PRN Abnormal Lab Result, Start date: 04/05/18 22:18:00 CDT, Duration: 30 day, Stop date: 05/05/18 22:17:00 CDT, FOR ICU USE ONLYNotes: WASTE: F/P - Sink; E - [employer] Trash Bin No Longer Active 04/06/2018 [facility] potassium phosphate 15 mmol, 5 mL, Route: IVPB, PRN, Dosing Weight 86.364, kg, PRN Abnormal Lab Result, Start date: 04/05/18 22:18:00 CDT, Duration: 30 day, Stop date: 05/05/18 22:17:00 CDT, FOR ICU USE ONLYNotes: (Same as: K Phosphate.) 1 mMol phoshate has 1.47 mEq potassium Infuse over 4 hours No Longer Active 04/06/2018 [facility] potassium phosphate-sodium phosphate 250 mg-280 mg-160 mg oral powder for reconstitution 2 pkt, Route: PO, Drug Form: PDR/REC, Dosing Weight 86.364, kg, PRN, PRN Abnormal Lab Result, FOR ICU USE ONLY, Start date: 04/05/18 22:18:00 CDT, Duration: 30 day, Stop date: 05/05/18 22:17:00 CDTNotes: (Same as: Phos-NaK) Each 1.5 gm pkt has 250mg phosphorous. Mix w/2.5oz water and stir. No Longer Active 04/06/2018 [facility] Saline Flush 0.9% 10 ml, Route: IVP, Drug Form: INJ, Dosing Weight 86.364, kg, PRN, PRN Line Flush, Start date: 04/05/18 22:18:00 CDT, Duration: 30 day, Stop date: 05/05/18 22:17:00 CDTNotes: (Same as: BD Posiflush) No Longer Active 04/06/2018 [facility] Acetaminophen 650 mg, 2 tab, Route: PO, Drug form: TAB, Q4H, Dosing Weight 86.364, kg, PRN For Temp > 100.4 F, Start date: 04/05/18 22:18:00 CDT, Duration: 30 day, Stop date: 05/05/18 22:17:00 CDTNotes: Do not exceed 4 gm/day. (Same as: Tylenol) No Longer Active 04/06/2018 [facility] polyethylene glycol 3350 oral kit 0 Refill(s) No Longer Active 04/06/2018 [facility] Hydromorphone Hydrochloride 8 MG Oral Tablet [Dilaudid] 8 mg=1 tab, PO, Q4H, PRN Pain, 0 Refill(s) No Longer Active 04/06/2018 [facility] Cardene 40 mg in NS 200 mL (Titrate.) IV 40 mg 40 mg, 200 mL, Rate: Titrate, Start Dose: 5 mg/hr, Titration: 2.5 mg/hr every 15 minutes, Goal(s): goal systolic blood pressure Notes: Same as: Cardene Concentration: (0.2 mg /1 ml ) No Longer Active 04/05/2018 [facility] Morphine 4 mg, Route: IVP, ONCE, Dosing Weight 86.364, kg, Priority: STAT, Start date: 04/05/18 17:55:00 CDT, Stop date: 04/05/18 17:55:00 CDT Inactive 04/05/2018 [facility] Labetalol 10 mg, Route: IVP, Drug form: INJ, ONCE, Dosing Weight 86.364, kg, Priority: STAT, Start date: 04/05/18 17:49:00 CDT, Stop date: 04/05/18 17:49:00 CDT Inactive 04/05/2018 [facility] Zofran 4 mg, Route: IVP, Drug form: INJ, ONCE, Dosing Weight 86.364, kg, Priority: STAT, Start date: 04/05/18 17:34:00 CDT, Stop date: 04/05/18 17:34:00 CDT Inactive 04/05/2018 [facility] [facility] Lab[facility] 10 mg, 2 mL, Route: IVP, Drug form: INJ, ONCE, Dosing Weight 86.364, kg, Priority: STAT, Start date: 04/05/18 17:01:00 CDT, Stop date: 04/05/18 17:01:00 CDTNotes: (Same as: Normodyne, Trandate) Push over 2 minutes Give bolus over 2-3 minutes. Inactive 04/05/2018 [facility] NS (Bolus) IV 1,000 mL, 1,000 ml/hr, Infuse Over: 1 hr, Route: IV, 1,000, Drug form: INJ, ONCE, Priority: STAT, Dosing Weight 86.364 kg, Start date: 04/05/18 15:29:00 CDT, Stop date: 04/05/18 15:29:00 CDT Inactive 04/05/2018 [facility] Saline Flush 0.9% 10 mL, Route: IVP, Drug Form: INJ, Dosing Weight 88.182, kg, PRN, PRN Line Flush, Start date: 04/05/18 15:08:00 CDT, Duration: 30 day, Stop date: 05/05/18 15:07:00 CDTNotes: (Same as: BD Posiflush) Inactive 04/05/2018 [facility] Saline Flush 0.9% 10 mL, Route: IVP, Drug Form: INJ, Dosing Weight 88.182, kg, PRN, PRN Line Flush, Start date: 03/07/18 3:37:00 CDT, Duration: 30 day, Stop date: 04/06/18 3:36:00 CDTNotes: (Same as: BD Posiflush) Inactive 03/07/2018 [facility] polyethylene glycol 3350 oral kit 1, PO, Daily, # 15 bag, 0 Refill(s), Pharmacy: [id number] Active 02/23/2018 [facility] Metoprolol 5 mg, 5 mL, Route: IVP, Drug form: INJ, Q6H, Dosing Weight 87.045, kg, PRN Tachycardia, Start date: 02/23/18 9:13:00 CDT, Stop date: 03/25/18 21:12:00 CDTNotes: (Same as: Lopressor) Push over 2 minutes Inactive 02/23/2018 [facility] Hydralazine 10 mg, 0.5 mL, Route: IVP, Drug form: INJ, Q4H, Dosing Weight 87.045, kg, PRN Hypertension, Start date: 02/23/18 9:13:00 CDT, Stop date: 03/25/18 9:13:00 CDTNotes: (Same as: Apresoline) Push over 5 m inutes Inactive 02/23/2018 [facility] Nitroglycerin 0.4 MG Sublingual Tablet 0.4 mg, 1 tab, Route: SL, Drug form: TAB, Q5Min, Dosing Weight 87.045, kg, PRN Chest Pain, Start date: 02/23/18 9:13:00 CDT, Duration: 30 day, Stop date: 03/25/18 9:12:00 CDTNotes: (Same as:Nitroquick, Nitrostat) "Do Not Crush" Sublingual tablet Inactive 02/23/2018 [facility] valsartan 160 mg, 1 tab, Route: PO, Drug form: TAB, Daily, Dosing Weight 87.091, kg, Start date: 02/23/18 9:00:00 CDT, Duration: 30 day, Stop date: 03/24/18 9:00:00 CDTNotes: Same as Diovan Inactive 02/23/2018 [facility] Plavix 75 mg, 1 tab, Route: PO, Drug form: TAB, Daily, Dosing Weight 87.091, kg, Start date: 02/23/18 9:00:00 CDT, Duration: 30 day, Stop date: 03/24/18 9:00:00 CDTNotes: (Same As: Plavix) Inactive 02/23/2018 [facility] Lipitor 40 mg, 1 tab, Route: PO, Drug form: TAB, Bedtime, Dosing Weight 87.091, kg, Start date: 02/22/18 21:00:00 CDT, Duration: 30 day, Stop date: 03/23/18 21:00:00 CDTNotes: (Same as: Lipitor) No Longer Active 02/23/2018 [facility] Flexeril 10 mg, 1 tab, Route: PO, Drug form: TAB, Bedtime, Dosing Weight 87.091, kg, Start date: 02/22/18 21:00:00 CDT, Duration: 30 day, Stop date: 03/23/18 21:00:00 CDTNotes: (Same As: Flexeril) No Longer Active 02/23/2018 [facility] Meclizine 25 mg, 1 tab, Route: PO, Drug form: TAB, QID, Dosing Weight 87.091, kg, PRN Dizziness, Start date: 02/22/18 20:08:00 CDT, Duration: 30 day, Stop date: 03/24/18 20:07:00 CDTNotes: (Same as: Antivert) No Longer Active 02/23/2018 [facility] Advair Diskus 500 mcg-50 mcg inhalation powder 1 puff, Route: INHALATION, Drug Form: AERO, Dosing Weight 87.091, kg, BID, Start date: 02/22/18 17:00:00 CDT, Duration: 30 day, Stop date: 03/24/18 9:00:00 CDT Inactive 02/22/2018 [facility] Aciphex 20 mg, Route: PO, Drug form: ECTAB, BID, Dosing Weight 87.091, kg, Start date: 02/22/18 17:00:00 CDT, Duration: 30 day, Stop date: 03/24/18 9:00:00 CDT Inactive 02/22/2018 [facility] Clonidine Hydrochloride 0.1 MG Oral Tablet 0.1 mg, 1 tab, Route: PO, Drug form: TAB, BID, Dosing Weight 87.091, kg, Start date: 02/22/18 17:00:00 CDT, Duration: 30 day, Stop date: 03/24/18 9:00:00 CDTNotes: (Same As: Catapres) No Longer Active 02/22/2018 [facility] Dilaudid 8 mg, 4 tab, Route: PO, Drug form: TAB, Q6H, Dosing Weight 87.091, kg, PRN Pain Score 7-10, Start date: 02/22/18 16:33:00 CDT, Duration: 30 day, Stop date: 03/24/18 16:32:00 CDTNotes: (Same as: Dilaudid) No Longer Active 02/22/2018 [facility] Protonix 40 mg, 1 tab, Route: PO, Drug form: ECTAB, Before Dinner, Start date: 02/22/18 16:30:00 CDT, Duration: 30 day, Stop date: 03/23/18 16:30:00 CDTNotes: Tablet should not be chewed or crushed. (Same as: Protonix) No Longer Active 02/22/2018 [facility] albuterol 0.083% inhalation solution 2.5 mg, 3.01 mL, Route: NEB, Drug form: SOLN, RQ6H, Start date: 02/22/18 14:00:00 CDT, Duration: 30 day, Stop date: 03/24/18 8:00:00 CDTNotes: SEE RT DOCUMENTATION (Same as: Proventil) No Longer Active 02/22/2018 [facility] budesonide 0.5 mg, 2 mL, Route: NEB, Drug form: SUSP, RQ12H, Start date: 02/22/18 10:05:00 CDT, Duration: 30 day, Stop date: 03/24/18 4:00:00 CDTNotes: (Same As: Pulmicort) No Longer Active 02/22/2018 [facility] Cyclosporine 1 drp, Route: BOTH EYES, Q12H, Drug form: DROP, Start date: 02/22/18 10:00:00 CDT, Duration: 30 day, Stop date: 03/24/18 9:00:00 CDTNotes: (Same as: Restasis) No Longer Active 02/22/2018 [facility] Docusate Sodium 50 MG / sennosides, MCC 8.6 MG Oral Tablet 1 tab, Route: PO, Drug Form: TAB, Dosing Weight 86.364, kg, BID, hold for lose BMs, Start date: 02/22/18 9:00:00 CDT, Duration: 30 day, Stop date: 03/23/18 21:00:00 CDTNotes: (Same as Senokot-S) Equiv. to Tabitha-Colace. No Longer Active 02/22/2018 [facility] Flomax 0.4 mg, 1 cap, Route: PO, Drug form: CAP, After Breakfast, Dosing Weight 86.364, kg, Start date: 02/22/18 8:30:00 CDT, Duration: 30 day, Stop date: 03/23/18 8:30:00 CDTNotes: (Same As: Flomax) "Do Not Crush" No Longer Active 02/22/2018 [facility] Insulin Lispro 4 unit, 0.04 mL, Route: SUB-Q, Drug form: SOLN, Bedtime, Dosing Weight 87.091, kg, PRN Blood Glucose Results, Start date: 02/22/18 2:22:00 CDT, Duration: 30 day, Stop date: 03/24/18 2:21:00 CDTNotes: (Same as: Humalog ) Roll in palms of hands gently; Do not shake `vigorously. "Single Patient Use Only " WASTE: F/P - Black; E - Municipal Trash Bin Stable for 28 days at room temperature. Expires in days from Date No Longer Active 02/22/2018 [facility] Dextrose 50% Syringe 12.5 gm, 25 mL, Route: IVP, Drug Form: INJ, Dosing Weight 87.091, kg, PRN, PRN Blood Glucose Results, Start date: 02/22/18 2:22:00 CDT, Duration: 30 day, Stop date: 03/24/18 2:21:00 CDT No Longer Active 02/22/2018 [facility] Glucagon 1 mg, Route: IM, Drug form: PDR/INJ, PRN, Dosing Weight 87.091, kg, PRN Blood Glucose Results, Start date: 02/22/18 2:22:00 CDT, Duration: 30 day, Stop date: 03/24/18 2:21:00 CDT No Longer Active 02/22/2018 [facility] meclizine 25 mg oral tablet 25 mg=1 tab, PO, QID, 0 Refill(s) Active 02/22/2018 [facility] Advair Diskus 500 mcg-50 mcg inhalation powder 1 puff, INHALATION, BID, # 1 ea, 3 Refill(s) Active 02/22/2018 [facility] Doxepin Hydrochloride 50 MG Oral Capsule 50 mg=1 cap, PO, Bedtime, # 30 cap, 0 Refill(s) No Longer Active 02/22/2018 [facility] valsartan 160 mg oral tablet 160 mg=1 tab, PO, Daily, 0 Refill(s) Active 02/22/2018 [facility] Cyclobenzaprine hydrochloride 10 MG Oral Tablet [Flexeril] 10 mg=1 tab, PO, Bedtime, 0 Refill(s) Active 02/22/2018 [facility] Hydromorphone Hydrochloride 8 MG Oral Tablet [Dilaudid] 8 mg=1 tab, PO, Q6H, PRN Pain, 0 Refill(s) Active 02/22/2018 [facility] dicyclomine 20 mg oral tablet 20 mg=1 tab, PO, TID-Meals, 0 Refill(s) Active 02/22/2018 [facility] Clonidine Hydrochloride 0.1 MG Oral Tablet 0.1 mg=1 tab, PO, BID, # 90 tab, 3 Refill(s) Active 02/22/2018 [facility] Lovenox 40 mg, 0.4 mL, Route: SUB-Q, Drug form: INJ, [id number], Dosing Weight 86.364, kg, if patient is post-op please verify with surgeon if okay to give for prophylaxis, Start date: 02/21/18 22:00:00 CDT, Duration: 30 day, Stop date: 03/22/18 22:00:00 CDTNotes: (Same as: Lovenox) No Longer Active 02/22/2018 [facility] Albuterol 0.833 MG/ML / Ipratropium [place] 0.167 MG/ML Inhalant Solution [DuoNeb] 3 ml, Route: INHALATION, Drug Form: SOLN, Dosing Weight 86.364, kg, RQID, NOW, Start date: 02/21/18 21:13:00 CDT, Duration: 30 day, Stop date: 03/23/18 19:00:00 CDTNotes: (Same as: Duoneb) No Longer Active 02/22/2018 [facility] Zofran 4 mg, 2 mL, Route: IV, Drug form: INJ, Q8H, Dosing Weight 86.364, kg, PRN Nausea, Start date: 02/21/18 21:01:00 CDT, Duration: 30 day, Stop date: 03/23/18 21:00:00 CDTNotes: (Same as: Zofran) MEDICATION WASTE Product Size: 4 mg Product Wasted: ___ mg No Longer Active 02/22/2018 [facility] Phenergan 12.5 mg, 50 mL, Route: IVPB, Drug form: SOLN, Q6H, Dosing Weight 86.364, kg, PRN Nausea & Vomiting, Start date: 02/21/18 21:01:00 CDT, Duration: 30 day, Stop date: 03/23/18 21:00:00 CDT No Longer Active 02/22/2018 [facility] Saline Flush 0.9% 10 ml, Route: IVP, Drug Form: INJ, Dosing Weight 86.364, kg, Q12H, Start date: 02/21/18 21:00:00 CDT, Duration: 30 day, Stop date: 03/23/18 9:00:00 CDTNotes: (Same as: BD Posiflush) No Longer Active 02/22/2018 [facility] Zofran ODT 4 mg, 1 tab, Route: PO, Drug form: TABDIS, ONCE, Dosing Weight 86.364, kg, Start date: 02/21/18 20:46:00 CDT, Stop date: 02/21/18 20:46:00 CDTNotes: (Same as: Zofran ODT) Inactive 02/22/2018 [facility] Miralax 17 gm, 1 pkt, Route: PO, Drug form: PWDR, Daily, Dosing Weight 86.364, kg, hold for lose BMs, Priority: NOW, Start date: 02/21/18 19:45:00 CDT, Duration: 30 day, Stop date: 03/23/18 9:00:00 CDTNotes: Dissolve in 8 oz of water or juice. (Same as: Miralax) No Longer Active 02/22/2018 [facility] Alprazolam 1 MG Oral Tablet [Xanax] 2 mg, 2 tab, Route: PO, Drug form: TAB, Bedtime, Dosing Weight 86.364, kg, PRN as needed for anxiety, Start date: 02/21/18 19:44:00 CDT, Duration: 30 day, Stop date: 03/23/18 19:43:00 CDTNotes: With food or milk (Same as: Xanax) No Longer Active 02/22/2018 [facility] Dilaudid 4 mg, 2 tab, Route: PO, Drug form: TAB, Q8H, Dosing Weight 86.364, kg, PRN Pain Score 4-6, Start date: 02/21/18 19:44:00 CDT, Stop date: 03/23/18 19:43:00 CDTNotes: (Same as: Dilaudid) No Longer Active 02/22/2018 [facility] Saline Flush 0.9% 10 ml, Route: IVP, Drug Form: INJ, Dosing Weight 86.364, kg, PRN, PRN Line Flush, Start date: 02/21/18 19:40:00 CDT, Duration: 30 day, Stop date: 03/23/18 19:39:00 CDTNotes: (Same as: BD Posiflush) No Longer Active 02/22/2018 [facility] Benadryl 25 mg, 1 tab, Route: PO, Drug form: TAB, TID, Dosing Weight 86.364, kg, PRN Itching, Start date: 02/21/18 19:40:00 CDT, Duration: 30 day, Stop date: 03/23/18 19:39:00 CDT No Longer Active 02/22/2018 [facility] Tylenol 650 mg, Route: PO, Drug form: TAB, QID, Dosing Weight 86.364, kg, PRN Pain 1-3/Temp > 100.4 F, Start date: 02/21/18 19:40:00 CDT, Duration: 30 day, Stop date: 03/23/18 19:39:00 CDT Inactive 02/22/2018 [facility] Tums 500 mg, 1 tab, Route: CHEW, Drug form: CHEWTAB, TID, Dosing Weight 86.364, kg, PRN Indigestion, Start date: 02/21/18 19:40:00 CDT, Duration: 30 day, Stop date: 03/23/18 19:39:00 CDTNotes: (Same As: Tums) Calcium Carbonate 500 [id number] mg elemental calcium Dose= mg calcium carbonate ( mg elemental calcium) No Longer Active 02/22/2018 [facility] normal saline 0.9% IV 1,000 mL 1,000 mL, Rate: 75 ml/hr, Infuse over: 13.3 hr, Route: IV, Dosing Weight 86.364 kg, Total Volume: 1,000, Start date: 02/21/18 19:40:00 CDT, Duration: 30 day, Stop date: 03/23/18 19:39:00 CDT, 2.02, m2 No Longer Active 02/22/2018 [facility] Magnesium Sulfate 2 gm, 50 mL, Route: IVPB, Drug form: INJ, ONCE, Dosing Weight 86.364, kg, Priority: STAT, Start date: 02/21/18 18:50:00 CDT, Stop date: 02/21/18 18:50:00 CDTNotes: WASTE: F/P - Sink; E - Municipal Trash Bin Inactive 02/21/2018 [facility] Acetaminophen 325 MG / Hydrocodone Bitartrate 5 MG Oral Tablet [[place] 5/325] 2 tab, Route: PO, Drug Form: TAB, Dosing Weight 86.364, kg, ONCE, Start date: 02/21/18 18:50:00 CDT, Stop date: 02/21/18 18:50:00 CDTNotes: (Same as: [place] 325/5) Do not exceed 4gm/day of acetaminophen. Inactive 02/21/2018 [facility] Saline Flush 0.9% 10 mL, Route: IVP, Drug Form: INJ, Dosing Weight 86.364, kg, PRN, PRN Line Flush, Start date: 02/21/18 17:10:00 CDT, Duration: 30 day, Stop date: 03/23/18 17:09:00 CDTNotes: (Same as: BD Posiflush) Inactive 02/21/2018 [facility] Ciprofloxacin 500 MG Oral Tablet [Cipro] 500 mg=1 tab, PO, Q12H, X 5 day, # 10 tab, 0 Refill(s), Pharmacy: [id number] Active 02/09/2018 [facility] 200 ACTUAT Albuterol 0.09 MG/ACTUAT Metered Dose Inhaler [ProAir HFA] 2 puff, INHALATION, Q4H, PRN for wheezing, # 9 gm, 0 Refill(s), Pharmacy: [id number] Active 02/09/2018 [facility] Medrol 4 mg oral tablet =1 pkt, PO, ONCE, as directed on package labeling, # 21 tab, 0 Refill(s), Pharmacy: [id number] Active 02/09/2018 [facility] Albuterol 0.83 MG/ML Inhalant Solution 2.5 mg=3 ml, INHALATION, Q6H, PRN Wheezing or cough, # 60 ea, 0 Refill(s), Pharmacy: [id number] Active 02/09/2018 [facility] Albuterol 0.833 MG/ML / Ipratropium [place] 0.167 MG/ML Inhalant Solution [DuoNeb] 3 ml, Route: INHALATION, Drug Form: SOLN, Dosing Weight 90.455, kg, Q30Min, Start date: 02/08/18 23:30:00 CDT, Duration: 3 doses or times, Stop date: 02/09/18 0:30:00 CDTNotes: (Same as: Duoneb) No Longer Active 02/09/2018 [facility] Saline Flush 0.9% 10 mL, Route: IVP, Drug Form: INJ, Dosing Weight 90.455, kg, PRN, PRN Line Flush, Start date: 02/08/18 23:29:00 CDT, Duration: 30 day, Stop date: 03/10/18 23:28:00 CDTNotes: (Same as: BD Posiflush) No Longer Active 02/09/2018 [facility] Hydralazine 20 mg, 1 mL, Route: IVP, Drug form: INJ, ONCE, Dosing Weight 71.818, kg, Priority: STAT, Start date: 05/07/17 3:24:00 CDT, Stop date: 05/07/17 3:24:00 CDTNotes: (Same as: Apresoline) Push over 5 minutes Inactive 05/07/2017 [facility] polyethylene glycol 3350 oral powder for reconstitution 17 gm, PO, BID, PRN Constipation, dissolve in water or juice. Hold for 1 day if diarrhea, X 30 day, # 1020 gm, 0 Refill(s), Pharmacy: [id number] Active 04/16/2017 [facility] Hydralazine Hydrochloride 25 MG Oral Tablet 25 mg=1 tab, PO, QID, # 120 tab, 0 Refill(s), Pharmacy: [id number] Inactive 04/16/2017 [facility] Dilaudid 4 mg, 2 tab, Route: PO, Drug form: TAB, Q8H, Dosing Weight 75, kg, PRN Pain Score 7-10, Start date: 04/16/17 10:53:00 CDT, Duration: 30 day, Stop date: 05/16/17 10:52:00 CDTNotes: (Same as: Dilaudid) Inactive 04/16/2017 [facility] Alprazolam 1 MG Oral Tablet [Xanax] 2 mg, 2 tab, Route: PO, Drug form: TAB, Bedtime, Dosing Weight 75, kg, Start date: 04/15/17 21:00:00 CDT, Duration: 30 day, Stop date: 05/14/17 21:00:00 CDTNotes: With food or milk (Same as: Xanax) No Longer Active 04/16/2017 [facility] sodium biphosphate-sodium phosphate 133 mL, Route: CA, Drug Form: KONRAD, Dosing Weight 75, kg, ONCE, Start date: 04/15/17 21:00:00 CDT, Stop date: 04/15/17 21:00:00 CDT, For Constipation > 12 years, Pediatric Dosing Inactive 04/16/2017 [facility] Zofran 4 mg, 2 mL, Route: IV, Drug form: INJ, Q4H, Dosing Weight 68.182, kg, PRN Nausea, Start date: 04/15/17 18:34:00 CDT, Duration: 30 day, Stop date: 05/15/17 18:33:00 CDTNotes: (Same as: Zofran) MEDICATION WASTE Product Size: 4 mg Product Wasted: ___ mg No Longer Active 04/15/2017 [facility] Dilaudid 4 mg, 2 tab, Route: PO, Drug form: TAB, Q6H, Dosing Weight 75, kg, PRN Pain Score 7-10, Start date: 04/15/17 18:34:00 CDT, Duration: 30 day, Stop date: 05/15/17 18:33:00 CDTNotes: (Same as: Dilaudid) No Longer Active 04/15/2017 [facility] Sodium Chloride 1000 MG Oral Tablet 1 gm, 1 tab, Route: PO, Drug form: TAB, TID-Meals, Dosing Weight 75, kg, Start date: 04/15/17 17:00:00 CDT, Duration: 30 day, Stop date: 05/15/17 12:00:00 CDT No Longer Active 04/15/2017 [facility] Lipitor 40 mg, 1 tab, Route: PO, Drug form: TAB, QPM, Dosing Weight 75, kg, Start date: 04/15/17 16:00:00 CDT, Duration: 30 day, Stop date: 05/14/17 16:00:00 CDTNotes: (Same as: Lipitor) No Longer Active 04/15/2017 [facility] Dilaudid 0.2 mg, 0.2 mL, Route: IVP, Drug form: INJ, Q8H, Dosing Weight 75, kg, PRN Pain Score 7-10, Start date: 04/15/17 14:15:00 CDT, Stop date: 05/15/17 14:14:00 CDTNotes: Same as: Dilaudid No Longer Active 04/15/2017 [facility] Albuterol 0.833 MG/ML / Ipratropium [place] 0.167 MG/ML Inhalant Solution [DuoNeb] 3 mL, Route: INHALATION, Drug Form: SOLN, Dosing Weight 75, kg, RQID, Start date: 04/15/17 11:00:00 CDT, Duration: 30 day, Stop date: 05/15/17 7:00:00 CDTNotes: (Same as: Duoneb) No Longer Active 04/15/2017 [facility] Benicar 20 mg, 1 tab, Route: PO, Drug form: TAB, BID, Dosing Weight 75, kg, Start date: 04/15/17 9:00:00 CDT, Duration: 30 day, Stop date: 05/14/17 21:00:00 CDT No Longer Active 04/15/2017 [facility] Metformin 500 mg, 1 tab, Route: PO, Drug form: TAB, Daily, Dosing Weight 75, kg, Start date: 04/15/17 9:00:00 CDT, Duration: 30 day, Stop date: 05/14/17 9:00:00 CDTNotes: (Same as: Glucophage) Take with meal No Longer Active 04/15/2017 [facility] enalaprilat 0.625 mg, 0.5 mL, Route: IV, Drug form: INJ, Q6Hnow, Dosing Weight 75, kg, Start date: 04/15/17 9:00:00 CDT, Duration: 30 day, Stop date: 05/15/17 3:00:00 CDTNotes: (Same as: Vasotec-IV) No Longer Active 04/15/2017 [facility] Cyclosporine 0.5 MG/ML Ophthalmic Suspension [Restasis] 1 drp, Route: BOTH EYES, BID, Drug form: DROP, Start date: 04/15/17 9:00:00 CDT, Duration: 30 day, Stop date: 05/14/17 21:00:00 CDTNotes: (Same as: Restasis) No Longer Active 04/15/2017 [facility] Docusate Sodium 50 MG / sennosides, MCC 8.6 MG Oral Tablet 1 tab, Route: PO, Drug Form: TAB, Dosing Weight 68.182, kg, BID, hold for lose BMs, Start date: 04/15/17 9:00:00 CDT, Duration: 30 day, Stop date: 05/14/17 17:00:00 CDTNotes: (Same as Senokot-S) Equiv. to Tabitha-Colace. No Longer Active 04/15/2017 [facility] Miralax 17 gm, 1 pkt, Route: PO, Drug form: PWDR, Daily, Dosing Weight 68.182, kg, hold for lose BMs, Start date: 04/15/17 9:00:00 CDT, Duration: 30 day, Stop date: 05/14/17 9:00:00 CDTNotes: Dissolve in 8 oz of water or juice. (Same as: Miralax) Inactive 04/15/2017 [facility] Plavix 75 mg, 1 tab, Route: PO, Drug form: TAB, Daily, Dosing Weight 75, kg, Start date: 04/15/17 9:00:00 CDT, Duration: 30 day, Stop date: 05/14/17 9:00:00 CDTNotes: (Same As: Plavix) No Longer Active 04/15/2017 [facility] Zyrtec 10 mg, 1 tab, Route: PO, Drug form: TAB, Daily, Dosing Weight 75, kg, Start date: 04/15/17 9:00:00 CDT, Duration: 30 day, Stop date: 05/14/17 9:00:00 CDTNotes: (Same As: Zyrtec) No Longer Active 04/15/2017 [facility] Fleet Enema 133 mL, Route: CA, Drug Form: KONRAD, Dosing Weight 75, kg, Q8H, NOW, Start date: 04/15/17 8:31:00 CDT, Duration: 2 doses or times, Stop date: 04/15/17 16:00:00 CDT Inactive 04/15/2017 [facility] Protonix 40 mg, 1 tab, Route: PO, Drug form: ECTAB, BID- Meals, Dosing Weight 68.182, kg, Start date: 04/15/17 8:00:00 CDT, Duration: 30 day, Stop date: 05/14/17 17:00:00 CDTNotes: Tablet should not be chewed or crushed. (Same as: Protonix) No Longer Active 04/15/2017 [facility] heparin sodium, porcine 2500 UNT/ML Injectable Solution 5,000 unit, 1 mL, Route: SUB-Q, Drug form: INJ, Q8H, Dosing Weight 68.182, kg, Start date: 04/15/17 8:00:00 CDT, Duration: 30 day, Stop date: 05/15/17 0:00:00 CDTNotes: porcine heparin No Longer Active 04/15/2017 [facility] Nitroglycerin 0.4 MG Sublingual Tablet 0.4 mg, 1 tab, Route: SL, Drug form: TAB, Q5Min, Dosing Weight 75, kg, PRN Chest Pain, Start date: 04/15/17 7:40:00 CDT, Duration: 30 day, Stop date: 05/15/17 7:39:00 CDTNotes: (Same as:MaddyquNelia edmondsontat) "Do Not Crush" Sublingual tablet No Longer Active 04/15/2017 [facility] Nitroglycerin 0.02 MG/MG Topical Ointment 0.5 inch, Route: TOP, Drug Form: OINT, Dosing Weight 75, kg, TID, NOW, Start date: 04/15/17 5:15:00 CDT, Duration: 30 day, Stop date: 05/14/17 17:00:00 CDTNotes: 1 gram is approximately 1 inch of nitroglycerin ointment (20 mg NTG per gram) (Same as:Nitro-Bid) No Longer Active 04/15/2017 [facility] Hydrochlorothiazide 25 MG / Triamterene 37.5 MG Oral Tablet 1 tab, PO, Daily, PRN Edema, 0 Refill(s) No Longer Active 04/15/2017 [facility] meclizine 25 mg oral tablet 25 mg=1 tab, PO, QID, 0 Refill(s) No Longer Active 04/15/2017 [facility] Hydralazine 10 mg, 0.5 mL, Route: IV, Drug form: INJ, Q6H, Dosing Weight 68.182, kg, PRN Hypertension, Start date: 04/15/17 3:28:00 CDT, Duration: 30 day, Stop date: 05/15/17 3:27:00 CDTNotes: (Same as: Apresoline) Push over 5 minutes No Longer Active 04/15/2017 [facility] Pepcid 20 mg, 2 mL, Route: IVP, Drug form: INJ, Q12H, Dosing Weight 68.182, kg, Priority: NOW, Start date: 04/15/17 2:01:00 CDT, Duration: 30 day, Stop date: 05/14/17 21:00:00 CDTNotes: (Same as: Pepcid) Can be dilute in 5-10cc NS IVP: Slow IV push over at least 2 minutes. No Longer Active 04/15/2017 [facility] sodium chloride 0.9% 1000 ml INJ 1,000 mL 1,000 mL, Rate: 60 ml/hr, Infuse over: 16.7 hr, Route: IV, Dosing Weight 68.182 kg, Total Volume: 1,000, Start date: 04/15/17 2:00:00 CDT, Stop date: 05/15/17 1:59:00 CDT No Longer Active 04/15/2017 [facility] Hydralazine 10 mg, 0.5 mL, Route: IVP, Drug form: INJ, ONCE, Dosing Weight 68.182, kg, Priority: STAT, Start date: 04/15/17 0:58:00 CDT, Stop date: 04/15/17 0:58:00 CDTNotes: (Same as: Apresoline) Push over 5 mi nutes Inactive 04/15/2017 [facility] Hydralazine Hydrochloride 25 MG Oral Tablet 25 mg, 1 tab, Route: PO, Drug form: TAB, QID, Dosing Weight 68.182, kg, Priority: NOW, Start date: 04/15/17 0:51:00 CDT, Duration: 30 day, Stop date: 05/14/17 21:00:00 CDTNotes: (Same as: Apresoline) May interfere w/enteral feedings Take With Food. No Longer Active 04/15/2017 [facility] Insulin, Aspart, Human 4 unit, 0.04 mL, Route: SUB-Q, Drug form: SOLN, TID-Before Meals, Dosing Weight 68.182, kg, PRN Blood Glucose Results, Start date: 04/15/17 0:50:00 CDT, Duration: 30 day, Stop date: 05/15/17 0:49:00 CDTNotes: Roll in palms of hands gently; Do not shake vigorously. (Same as: NovoLOG) "single patient use only" WASTE: F/P - Black; E - [employer] Trash Bin Stable for 28 days at room temperature. Expires in days from Date No Longer Active 04/15/2017 [facility] Glucagon 1 mg, Route: IM, Drug form: PDR/INJ, PRN, Dosing Weight 68.182, kg, PRN Blood Glucose Results, Start date: 04/15/17 0:50:00 CDT, Duration: 30 day, Stop date: 05/15/17 0:49:00 CDT No Longer Active 04/15/2017 [facility] Dextrose 50% Syringe 25 gm, 50 mL, Route: IVP, Drug Form: INJ, Dosing Weight 68.182, kg, PRN, PRN Blood Glucose Results, Start date: 04/15/17 0:50:00 CDT, Duration: 30 day, Stop date: 05/15/17 0:49:00 CDT No Longer Active 04/15/2017 [facility] Tylenol 650 mg, 2 tab, Route: PO, Drug form: TAB, QID, Dosing Weight 68.182, kg, PRN Pain 1-3/Temp > 100.4 F, Priority: STAT, Start date: 04/15/17 0:49:00 CDT, Duration: 30 day, Stop date: 05/15/17 0:48:00 CDTNotes: Do not exceed 4 gm/day. (Same as: Tylenol) No Longer Active 04/15/2017 [facility] Benadryl 25 mg, 1 tab, Route: PO, Drug form: TAB, TID, Dosing Weight 68.182, kg, PRN Itching, Start date: 04/15/17 0:49:00 CDT, Duration: 30 day, Stop date: 05/15/17 0:48:00 CDT No Longer Active 04/15/2017 [facility] Zofran 4 mg, 2 mL, Route: IV, Drug form: INJ, Q8H, Dosing Weight 68.182, kg, PRN Nausea, Start date: 04/15/17 0:49:00 CDT, Duration: 30 day, Stop date: 05/15/17 0:48:00 CDTNotes: (Same as: Zofran) MEDICATION WASTE Product Size: 4 mg Product Wasted: ___ mg Inactive 04/15/2017 [facility] Hydralazine 10 mg, 0.5 mL, Route: IVP, Drug form: INJ, Q4H, Dosing Weight 68.182, kg, PRN Elevated BP, Start date: 04/15/17 0:49:00 CDT, Stop date: 04/16/17 7:08:00 CDT, SBP > 160, DBP >110Notes: (Same as: Lyssa sanchez) Push over 5 minutes No Longer Active 04/15/2017 [facility] sennosides, MCC 8.6 mg, 1 tab, Route: PO, Drug Form: TAB, Dosing Weight 68.182, kg, Daily, PRN Constipation, Start date: 04/15/17 0:49:00 CDT, Duration: 30 day, Stop date: 05/15/17 0:48:00 CDTNotes: (Same as: Senokot) No Longer Active 04/15/2017 [facility] NS (Bolus) IV 500 mL, 500 ml/hr, Infuse Over: 1 hr, Route: IV, ONCE, Priority: STAT, Dosing Weight 68.182 kg, Start date: 04/15/17 0:36:00 CDT, Duration: 1 doses or times, Stop date: 04/15/17 0:36:00 CDT Inactive 04/15/2017 [facility] Zofran 4 mg, 2 mL, Route: IVP, Drug form: INJ, ONCE, Dosing Weight 68.182, kg, Priority: STAT, Start date: 04/14/17 23:23:00 CDT, Stop date: 04/14/17 23:23:00 CDTNotes: (Same as: Zofran) MEDICATION WASTE Product Size: 4 mg Product Wasted: ___ mg Inactive 04/15/2017 [facility] NS (Bolus) IV 500 mL, 500 ml/hr, Infuse Over: 1 hr, Route: IV, 500, Drug form: INJ, ONCE, Priority: STAT, Dosing Weight 68.182 kg, Start date: 04/14/17 22:44:00 CDT, Duration: 1 doses or times, Stop date: 04/14/17 22:44:00 CDT Inactive 04/15/2017 [facility] Saline Flush 0.9% 10 mL, Route: IVP, Drug Form: INJ, Dosing Weight 68.182, kg, PRN, PRN Line Flush, Start date: 04/14/17 22:26:00 CDT, Duration: 30 day, Stop date: 05/14/17 22:25:00 CDTNotes: (Same as: BD Posiflush) No Longer Active 04/15/2017 [facility] Alprazolam 1 MG Oral Tablet [Xanax] 2 mg, 2 tab, Route: PO, Drug form: TAB, Bedtime, Dosing Weight 65.773, kg, Start date: 09/26/16 21:00:00 [employer]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, Duration: 30 day, Stop date: 10/25/16 21:00:00 CSTNotes: With food or milk (Same as: Xanax) Inactive 09/27/2016 [facility] predniSONE 20 mg oral tablet 20 mg=1 tab, PO, Daily, X 10 day, # 10 tab, 0 Refill(s) Active 09/26/2016 [facility] clindamycin 300 mg oral capsule 300 mg=1 cap, PO, Q6H, X 7 day, # 28 cap, 0 Refill(s) Active 09/26/2016 [facility] Lipitor 40 mg, 1 tab, Route: PO, Drug form: TAB, QPM, Dosing Weight 65.773, kg, Start date: 09/26/16 16:00:00 [employer]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, Duration: 30 day, Stop date: 10/25/16 16:00:00 CSTNotes: (Same as: Lipitor) Inactive 09/26/2016 [facility] Tessalon Perles 200 mg, 2 cap, Route: PO, Drug form: CAP, TID, Dosing Weight 65.773, kg, PRN Cough, Start date: 09/26/16 9:03:00 [employer]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, Duration: 30 day, Stop date: 10/26/16 9:02:00 CSTNotes: (Same As: Tessalon Perles) "Do Not Crush" Inactive 09/26/2016 [facility] Cyclosporine 0.5 MG/ML Ophthalmic Suspension [Restasis] 1 drp, Route: BOTH EYES, BID, Drug form: DROP, Start date: 09/26/16 9:00:00 [employer]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, Duration: 30 day, Stop date: 10/25/16 17:00:00 CSTNotes: (Same as: Restasis) Inactive 09/26/2016 [facility] Plavix 75 mg, 1 tab, Route: PO, Drug form: TAB, Daily, Dosing Weight 65.773, kg, Start date: 09/26/16 9:00:00 [employer]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, Duration: 30 day, Stop date: 10/25/16 9:00:00 CSTNotes: (Same As: Plavix) Inactive 09/26/2016 [facility] Zyrtec 10 mg, 1 tab, Route: PO, Drug form: TAB, Daily, Dosing Weight 65.773, kg, Start date: 09/26/16 9:00:00 [employer]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, Duration: 30 day, Stop date: 10/25/16 9:00:00 CSTNotes: (Same As: Zyrtec) Inactive 09/26/2016 [facility] Aciphex 20 mg, Route: PO, Drug form: ECTAB, TID, Dosing Weight 65.773, kg, Start date: 09/26/16 9:00:00 [employer]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, Duration: 30 day, Stop date: 10/25/16 17:00:00 [employer]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 (Same as: Protonix) Inactive 09/26/2016 [facility] Dicyclomine 20 mg, 1 tab, Route: PO, Drug form: TAB, TID, Dosing Weight 65.773, kg, Start date: 09/26/16 8:00:00 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, Duration: 30 day, Stop date: 10/25/16 21:00:00 CSTNotes: (Same as: Bentyl) Inactive 09/26/2016 [facility] methylPREDNISolone SODium SUCCinate 40 mg, 1 mL, Route: IVP, Drug form: INJ, Q8H, Dosing Weight 65.773, kg, Start date: 09/26/16 8:00:00 [employer]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, Duration: 30 day, Stop date: 10/26/16 0:00:00 CSTNotes: (Same as:Solu-MEDROL, A-Methapred) Inactive 09/26/2016 [facility] Flexeril 10 mg, 1 tab, Route: PO, Drug form: TAB, Q6H, Dosing Weight 65.773, kg, Start date: 09/26/16 6:00:00 [employer]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, Duration: 30 day, Stop date: 10/26/16 0:00:00 CSTNotes: (Same As: Flexeril) Inactive 09/26/2016 [facility] Dilaudid 4 mg, 2 tab, Route: PO, Drug form: TAB, Q8H-06, Dosing Weight 65.773, kg, Priority: NOW, Start date: 09/26/16 2:20:00 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, Duration: 30 day, Stop date: 10/25/16 22:00:00 CSTNotes: (Same as: Dilaudid) Inactive 09/26/2016 [facility] Dextromethorphan Hydrobromide 3 MG/ML / Guaifenesin 40 MG/ML Oral Solution 5 mL, Route: PO, Drug Form: LIQ, Dosing Weight 65.773, kg, Q6H, PRN Cough/Congestion, Start date: 09/26/16 2:02:00 [employer]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, Duration: 30 day, Stop date: 10/26/16 2:01:00 CSTNotes: (dextromethorphan-guaifenesin 10-100/5 ml LIQ) (Same as: Robitussin-DM) Inactive 09/26/2016 [facility] potassium chloride 10 mEq, 100 mL, Route: IVPB, Drug form: INJ, Q1H, Dosing Weight 65.773, kg, Total Dose=40 meq, Start date: 09/26/16 2:00:00 [employer]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, Duration: 4 doses or times, Stop date: 09/26/16 5:00:00 [employer]AC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, Peripheral LineNotes: Infuse at a rate of 10 mEq/hr. (Same as: KCL) Inactive 09/26/2016 [facility] Albuterol 0.833 MG/ML / Ipratropium [place] 0.167 MG/ML Inhalant Solution 3 mL, Route: NEB, Drug Form: SOLN, Dosing Weight 65.773, kg, RQ6H, Start date: 09/26/16 2:00:00 [employer]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, Duration: 30 day, Stop date: 10/25/16 20:00:00 CSTNotes: (Same as: Duoneb) Inactive 09/26/2016 [facility] Lovenox 40 mg, 0.4 mL, Route: SUB-Q, Drug form: INJ, [id number], Dosing Weight 65.773, kg, Start date: 09/26/16 2:00:00 [employer]AC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, Duration: 30 day, Stop date: 10/25/16 2:00:00 CSTNotes: (Same as: Lovenox) Inactive 09/26/2016 [facility] Alprazolam 1 MG Oral Tablet [Xanax] 2 mg, 2 tab, Route: PO, Drug form: TAB, Bedtime, Dosing Weight 65.773, kg, Start date: 09/26/16 2:00:00 [employer]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, Duration: 30 day, Stop date: 10/25/16 21:00:00 CSTNotes: With food or milk (Same as: Xanax) Inactive 09/26/2016 [facility] Insulin, Aspart, Human 4 unit, 0.04 mL, Route: SUB-Q, Drug form: SOLN, Bedtime, Dosing Weight 65.773, kg, PRN Blood Glucose Results, Start date: 09/26/16 1:48:00 [employer]AC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, Duration: 30 day, Stop date: 10/26/16 1:47:00 CSTNotes: Roll in palms of hands gently; Do not shake vigorously. (Same as: NovoLOG) "single patient use only" WASTE: F/P - Black; E - [employer] Trash Bin Stable for 28 days at room temperature. Expires in days from Date Inactive 09/26/2016 [facility] Glucagon 1 mg, Route: IM, Drug form: PDR/INJ, PRN, Dosing Weight 65.773, kg, PRN Blood Glucose Results, Start date: 09/26/16 1:48:00 [employer]AC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, Duration: 30 day, Stop date: 10/26/16 1:47:00 [employer]AC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 Inactive 09/26/2016 [facility] Dextrose 50% Syringe 25 gm, 50 mL, Route: IVP, Drug Form: INJ, Dosing Weight 65.773, kg, PRN, PRN Blood Glucose Results, Start date: 09/26/16 1:48:00 [employer]AC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, Duration: 30 day, Stop date: 10/26/16 1:47:00 ORAC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 Inactive 09/26/2016 [facility] Doxepin Hydrochloride 50 MG Oral Capsule 50 mg, 1 cap, Route: PO, Drug form: CAP, Bedtime, Dosing Weight 65.773, kg, Start date: 09/26/16 1:47:00 [employer]AC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, Duration: 30 day, Stop date: 10/25/16 21:00:00 CSTNotes: (Same as: SINEquan) Inactive 09/26/2016 [facility] Hydralazine 20 mg, 1 mL, Route: IVP, Drug form: INJ, Q4H, Dosing Weight 65.773, kg, PRN Hypertension, Start date: 09/26/16 1:47:00 [employer]AC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, Duration: 30 day, Stop date: 10/26/16 1:46:00 CSTNotes: (Same as: Apresoline) Push over 5 minutes Inactive 09/26/2016 [facility] potassium chloride 20 mEq oral tablet, extended release 40 mEq, 2 tab, Route: PO, Drug form: ERTAB, ONCE, Dosing Weight 65.773, kg, Start date: 09/26/16 1:47:00 [employer]AC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, Stop date: 09/26/16 1:47:00 CSTNotes: (Same as: K- Dur 20) "Do Not Crush" With food and full glass of water Inactive 09/26/2016 [facility] Albuterol 0.83 MG/ML Inhalant Solution 2.5 mg, 0.5 mL, Route: NEB, Drug form: SOLN, RQ2H, Dosing Weight 65.773, kg, PRN Wheezing, Priority: Routine, Start date: 09/26/16 1:41:00 [employer]AC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, Duration: 30 day, Stop date: 10/26/16 1:40:00 CSTNotes: SEE RT DOCUMENTATION MEDICATION WASTE Product Size: 2.5 mg Product Wasted: ___ mg Inactive 09/26/2016 [facility] normal saline inhalation solution 3 mL, Route: NEB, Drug Form: MISC, PRN, PRN Respiratory Protocol, Start date: 09/26/16 0:29:00 [employer]AC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, Duration: 30 day, Stop date: 10/26/16 0:28:00 [employer]AC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 Inactive 09/26/2016 [facility] Albuterol 0.83 MG/ML Inhalant Solution 2.5 mg, 0.5 mL, Route: NEB, Drug form: SOLN, RQ2H, Dosing Weight 65.773, kg, PRN Wheezing, Priority: Routine, Start date: 09/26/16 0:18:00 [employer]AC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, Duration: 30 day, Stop date: 10/26/16 0:17:00 CSTNotes: SEE RT DOCUMENTATION MEDICATION WASTE Product Size: 2.5 mg Product Wasted: ___ mg Inactive 09/26/2016 [facility] Morphine Sulfate 60 MG Extended Release Tablet 60 mg=1 tab, PO, Q8H, 0 Refill(s) Active 09/26/2016 [facility] Alprazolam 1 MG Oral Tablet [Xanax] 2 mg=2 tab, PO, Bedtime, 0 Refill(s) Active 09/26/2016 [facility] Hydromorphone Hydrochloride 4 MG Oral Tablet [Dilaudid] 4 mg=1 tab, PO, Q8H, 0 Refill(s) Active 09/26/2016 [facility] Nitroglycerin 0.4 MG Sublingual Tablet 0.4 mg=1 tab, SL, Q5Min, PRN as needed for chest pain, 0 Refill(s) Active 09/26/2016 [facility] potassium chloride 10 mEq, 100 mL, Route: IVPB, Drug form: INJ, Q1H, Dosing Weight 64.545, kg, Total Dose=20 meq, Start date: 09/25/16 20:00:00 [employer]AC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, Duration: 2 doses or times, Stop date: 09/25/16 21:00:00 [employer]AC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, Peripheral LineNotes: Infuse at a rate of 10 mEq/hr. (Same as: KCL) Inactive 09/26/2016 [facility] sodium chloride 0.9% 500 ml INJ 500 mL 500 mL, Rate: 200 ml/hr, Infuse over: 2.5 hr, Route: IV, Dosing Weight 64.545 kg, Total Volume: 500, Start date: 09/25/16 19:30:00 [employer]AC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, Duration: 30 day, Stop date: 10/25/16 19:29:00 ORAC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 Inactive 09/26/2016 [facility] Sodium Chloride 0.154 MEQ/ML Injectable Solution Route: IV, ONCE, Dosing Weight 64.545 kg, Start date: 09/25/16 19:27:00 ORAC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, Stop date: 09/25/16 19:27:00 ORAC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 Inactive 09/26/2016 [facility] potassium chloride 20 mEq oral tablet, extended release 40 mEq, Route: PO, Drug form: ERTAB, ONCE, Dosing Weight 64.545, kg, Priority: STAT, Start date: 09/25/16 19:19:00 ORAC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, Stop date: 09/25/16 19:19:00 ORAC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 Inactive 09/26/2016 [facility] potassium chloride 20 mEq/100 mL intravenous solution 20 mEq, Route: IVPB, ONCE, Dosing Weight 64.545, kg, Priority: STAT, Start date: 09/25/16 19:19:00 ORAC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, Stop date: 09/25/16 19:19:00 ORAC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 Inactive 09/26/2016 [facility] Albuterol 0.833 MG/ML / Ipratropium [place] 0.167 MG/ML Inhalant Solution 3 mL, Route: NEB, Drug Form: SOLN, Dosing Weight 64.545, kg, ONCE, STAT, Start date: 09/25/16 18:33:00 ORAC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, Stop date: 09/25/16 18:33:00 CSTNotes: (Same as: Duoneb) Inactive 09/26/2016 [facility] methylPREDNISolone SODium SUCCinate 125 mg, 2 mL, Route: IVP, Drug form: INJ, ONCE, Dosing Weight 64.545, kg, Priority: STAT, Start date: 09/25/16 18:33:00 ORAC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, Stop date: 09/25/16 18:33:00 CSTNotes: (Same as:Solu-MEDROL, A-Methapred) Inactive 09/26/2016 [facility] Labetalol 20 mg, 4 mL, Route: IVP, Drug form: INJ, ONCE, Dosing Weight 64.545, kg, Priority: STAT, Start date: 09/25/16 18:19:00 ORAC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, Stop date: 09/25/16 18:19:00 CSTNotes: (Same as: Normodyne, Trandate) Push over 2 minutes Give bolus over 2-3 minutes. Inactive 09/26/2016 [facility] Saline Flush 0.9% 10 mL, Route: IVP, Drug Form: INJ, Dosing Weight 64.545, kg, PRN, PRN Line Flush, Start date: 09/25/16 18:19:00 ORAC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, Duration: 12 hr, Stop date: 09/26/16 6:18:00 CSTNotes: (Same as: BD Posiflush) No Longer Active 09/26/2016 [facility] Flexeril 10 mg, 1 tab, Route: PO, Drug form: TAB, ONCE, Start date: 05/14/16 12:32:00 CDT, Stop date: 05/14/16 12:32:00 CDTNotes: (Same As: Flexeril) Inactive 05/14/2016 [facility] atorvastatin 40 MG Oral Tablet [Lipitor] 40 mg=1 tab, PO, Daily, at 4pm, 0 Refill(s) Active 05/14/2016 [facility] Zofran 4 mg, TID, 0 Refill(s) Active 05/14/2016 [facility] Dicyclomine 20 mg, 1 tab, Route: PO, Drug form: TAB, TID- Meals, Dosing Weight 64.631, kg, Start date: 05/14/16 12:00:00 CDT, Duration: 30 day, Stop date: 06/13/16 8:00:00 CDTNotes: (Same as: Aftab) Inactive 05/14/2016 [facility] Benicar 20 mg, 1 tab, Route: PO, Drug form: TAB, BID, Dosing Weight 64.631, kg, Start date: 05/14/16 12:00:00 CDT, Duration: 30 day, Stop date: 06/13/16 9:00:00 CDT Inactive 05/14/2016 [facility] Olmesartan medoxomil 20 MG Oral Tablet [Benicar] 20 mg=1 tab, PO, BID, # 30 tab, 0 Refill(s) Active 05/14/2016 [facility] Cyclobenzaprine hydrochloride 10 MG Oral Tablet [Flexeril] 10 mg=1 tab, PO, QID, 0 Refill(s) Active 05/14/2016 [facility] dicyclomine 20 mg oral tablet 20 mg=1 tab, PO, TID, # 56 tab, 0 Refill(s) Active 05/14/2016 [facility] Metformin 500 mg, PO, Daily, 0 Refill(s) Active 05/14/2016 [facility] Benicar 20 mg, Route: PO, Drug form: TAB, BID, Dosing Weight 64.631, kg, Start date: 05/14/16 9:00:00 CDT, Duration: 30 day, Stop date: 06/12/16 17:00:00 CDT Inactive 05/14/2016 [facility] Flexeril 10 mg, Route: PO, Drug form: TAB, QID, Dosing Weight 64.631, kg, Start date: 05/14/16 9:00:00 CDT, Duration: 30 day, Stop date: 06/12/16 21:00:00 CDT Inactive 05/14/2016 [facility] Metformin hydrochloride 500 MG Oral Tablet 500 mg, 1 tab, Route: PO, Drug form: TAB, QAM, Dosing Weight 64.631, kg, Start date: 05/14/16 9:00:00 CDT, Stop date: 06/13/16 9:00:00 CDTNotes: (Same as: Glucophage) Take with meal Inactive 05/14/2016 [facility] fentaNYL (ANES) Route: IV, Drug form: INJ, ONCE, Stop date: 05/14/16 8:12:00 CDT Inactive 05/14/2016 [facility] propofol (ANES) Route: IV, Drug form: INJ, ONCE, Stop date: 05/14/16 8:12:00 CDT Inactive 05/14/2016 [facility] midazolam (ANES) Route: IV, Drug form: SOLN, ONCE, Stop date: 05/14/16 8:12:00 CDT Inactive 05/14/2016 [facility] Nitroglycerin 0.4 MG Sublingual Tablet 0.4 mg, 1 tab, Route: SL, Drug form: TAB, Q5Min, Dosing Weight 64.631, kg, PRN Chest Pain, Start date: 05/14/16 8:07:00 CDT, Duration: 30 day, Stop date: 06/13/16 8:06:00 CDTNotes: (Same as:Nitroquick, Nitrostat) "Do Not Crush" Sublingual tablet Inactive 05/14/2016 [facility] Morphine 30 mg, 2 tab, Route: PO, Drug form: TAB, Q4H, Dosing Weight 64.631, kg, PRN Pain Score 4-6, Start date: 05/14/16 8:06:00 CDT, Duration: 30 day, Stop date: 06/13/16 8:05:00 CDTNotes: (Same as:MORPhine Sulfate) Inactive 05/14/2016 [facility] Alprazolam 1 MG Oral Tablet [Xanax] 1 mg, 1 tab, Route: PO, Drug form: TAB, Bedtime, Dosing Weight 64.631, kg, PRN Anxiety, Start date: 05/14/16 8:05:00 CDT, Duration: 30 day, Stop date: 06/13/16 8:04:00 CDTNotes: With food or milk (Same as: Xanax) Inactive 05/14/2016 [facility] 200 ACTUAT Albuterol 0.09 MG/ACTUAT Metered Dose Inhaler [ProAir HFA] 1 puff, Route: INHALATION, Drug Form: AERO/A, Dosing Weight 64.631, kg, PRN, PRN as needed for wheezing, Start date: 05/14/16 8:05:00 CDT, Duration: 30 day, Stop date: 06/13/16 8:04:00 CDTNotes: Albuterol 90 microgram/inh 8gm HFA WASTE: Aerosol - Return to Pharmacy Same as: [place] Inactive 05/14/2016 [facility] Calcium Chloride 0.0014 MEQ/ML / Potassium Chloride 0.004 MEQ/ML / Sodium Chloride 0.103 MEQ/ML / Sodium Lactate 0.028 MEQ/ML Injectable Solution 1,000 mL, Rate: 25 ml/hr, Infuse over: 40 hr, Route: IV, Dosing Weight 64.631 kg, Total Volume: 1,000, Start date: 05/14/16 7:55:00 CDT, Duration: 30 day, Stop date: 06/13/16 7:54:00 CDT Inactive 05/14/2016 [facility] LR 1000 mL INJ (ANES) Route: IV, Total Volume: 1,000, Start date: 05/14/16 7:43:00 CDT, Stop date: 05/14/16 8:43:00 CDT Inactive 05/14/2016 [facility] Morphine Sulfate 1 MG/ML Injectable Solution [Duramorph] 1 mg, 1 mL, Route: INJ, Drug form: INJ, ONCE, Dosing Weight 64.631, kg, Start date: 05/14/16 7:10:00 CDT, Stop date: 05/14/16 7:10:00 CDTNotes: (Same as:Duramorph, Astramorph-PF) Preservative free. Inactive 05/14/2016 [facility] Hydromorphone Hydrochloride 8 MG Oral Tablet [Dilaudid] 8 mg=1 tab, PO, Q6H, PRN Pain, 0 Refill(s) Active 05/10/2016 [facility] morphine 30 mg oral tablet 30 mg=1 tab, PO, Q4H, PRN Pain, 0 Refill(s) No Longer Active 05/10/2016 [facility] acyclovir 800 mg oral tablet 800 mg=1 tab, PO, 5X Day, X 10 day, # 50 tab, 0 Refill(s) Active 01/18/2016 [facility] Acetaminophen 325 MG / Hydrocodone Bitartrate 5 MG Oral Tablet [[place] 5/325] 1 tab, Route: PO, Drug Form: TAB, Dosing Weight 69, kg, ONCE, STAT, Start date: 01/17/16 22:35:00 CDT, Stop date: 01/17/16 22:35:00 CDTNotes: (Same as: [place] 325/5) Do not exceed 4gm/day of acetaminophen. Inactive 01/18/2016 [facility] morphine Sulfate 2 mg, 1 mL, Route: IV, Drug form: INJ, Q2H, Dosing Weight 63.636, kg, PRN Pain, Start date: 08/04/12 3:56:00, Duration: 30 day, Stop date: 09/03/12 3:55:00 IV No Longer Active [place] 08/04/2012 [facility] ciprofloxacin 400 mg, Route: IVPB, ONCE, Dosing Weight 63.636, kg, Priority: STAT, Start date: 08/04/12 3:26:00, Stop date: 08/04/12 3:26:00 IVPB No Longer Active [facility] 08/04/2012 [facility] Reglan 10 mg, 2 mL, Route: IVP, Drug form: INJ, ONCE, Dosing Weight 63.636, kg, Priority: STAT, Start date: 08/04/12 3:21:00, Stop date: 08/04/12 3:21:00 IVP No Longer Active [facility] 08/04/2012 [facility] Fleet Enema 133 mL, Route: CA, Drug Form: KONRAD, Dosing Weight 63.636, kg, ONCE, PRN as needed for constipation, Start date: 08/04/12 3:17:00 CA No Longer Active [facility] 08/04/2012 [facility] bisacodyl 10 mg, 1 supp, Route: CA, Drug form: SUPP, ONCE, Dosing Weight 63.636, kg, Start date: 08/04/12 3:17:00, Stop date: 08/04/12 3:17:00 CA No Longer Active [facility] 08/04/2012 [facility] LR IV 1,000 mL 1,000 mL, Rate: 100 ml/hr, Infuse over: 10 hr, Route: IV, kg, Total Volume: 1,000, Start date: 08/04/12 3:04:00, Duration: 30 day, Stop date: 09/03/12 3:03:00 IV No Longer Active [facility] 08/04/2012 [facility] morphine Sulfate 2 mg, 1 mL, Route: IVP, Drug form: INJ, ONCE, Dosing Weight 63.636, kg, Priority: STAT, Start date: 08/04/12 3:04:00, Stop date: 08/04/12 3:04:00 IVP No Longer Active [place] 08/04/2012 [facility] Allergies, Adverse Reactions, Alerts Substance Category Reaction Severity Reaction type Status Date Reported Comments Source aspirin Assertion Darvon, Darvocet N, Percocet, [place] Oil, Penicillin G Benzathine,300,000 U/ML,Injection (systemic),injection, Percodan, [place] Nx, Doxycycline Hyclate,100 MG,Oral (systemic),capsule, Tetracycline Hydrochloride,100 MG,Oral (systemic),capsule, Compazine, Erythromycin,Miscellaneous Routes,compounding, Aspirin,800 MG,Oral (systemic),extended-release tablet, Iodine,Miscellaneous Routes,granules Drug allergy Active [place] castor oil Assertion Drug allergy Active [place] cephalexin Assertion Drug allergy Active [place] codeine Assertion Allergy to substance Active [facility] Compazine Assertion Drug allergy Active [place] Darvocet N Assertion Drug allergy Active [facility] Darvon Assertion Drug allergy Active [facility] doxycycline Assertion Drug allergy Active [place] erythromycin Assertion Drug allergy Active [facility] iodine topical Assertion Compazine Drug allergy Active [facility] Keflex Assertion Drug allergy Active [facility] Levaquin Assertion Drug allergy Active [facility] Lyrica Assertion Drug allergy Active [facility] mineral oil Assertion Drug allergy Active [facility] OxyCONTIN Assertion Drug allergy Active [facility] penicillin Assertion Drug allergy Active [facility] Percocet Assertion Drug allergy Active [facility] Percodan Assertion Drug allergy Active [facility] sulfa drugs Assertion Allergy to substance Active [facility] Talwin Assertion Drug allergy Active [facility] tetracyclines Assertion Drug allergy Active [facility] traMADol Assertion Drug allergy Active [facility] Zithromax Assertion Drug allergy Active [facility] Adhesive Tape Assertion Drug allergy Active [facility] Immunizations Immunization Date Given Site Status Last Updated Comments Source Results Order Name Results Value Reference Range Date Interpretation Comments Source CHEM PANEL Magnesium Lvl 2.2 mg/dL 1.8 - 2.4 04/08/2018 [facility] CHEM PANEL Albumin Lvl 3.9 g/dL 3.5 - 5.0 04/08/2018 [facility] ELECTROLYTES AGAP 11.6 meq/L 10.0 - 20.0 04/08/2018 [facility] ELECTROLYTES eGFR 76 mL/min/1.73m2 04/08/2018 Result Comment: The eGFR is calculated using the CKD-EPI formula. In most young, healthy individuals the eGFR will be >90 mL/min/1.73m2. The eGFR declines with age. An eGFR of 60-89 may be normal in some populations, particularly the elderly, for whom the CKD-EPI formula has not been extensively validated. Use of the eGFR is not recommended in the following populations: Individuals with unstable creatinine concentrations, including patients and those with serious co-morbid conditions. Patients with extremes in muscle mass or diet. The data above are obtained from the National Kidney Disease Education Program (NKDEP) which additionally recommends that when the eGFR is used in patients with extremes of body mass index for purposes of drug dosing, the eGFR should be multiplied by the estimated BMI. [facility] ELECTROLYTES Sodium Lvl 132 meq/L 135 - 145 04/08/2018 [facility] ELECTROLYTES BUN 14 mg/dL 7 - 22 04/08/2018 [facility] ELECTROLYTES Glucose Lvl 122 mg/dL 70 - 99 04/08/2018 [facility] ELECTROLYTES Potassium Lvl 3.6 meq/L 3.5 - 5.1 04/08/2018 [facility] ELECTROLYTES Creatinine Lvl 0.84 mg/dL 0.50 - 1.40 04/08/2018 [facility] ELECTROLYTES Chloride Lvl 98 meq/L 95 - 109 04/08/2018 [facility] ELECTROLYTES CO2 26 meq/L 24 - 32 04/08/2018 [facility] ELECTROLYTES Calcium Lvl 7.9 mg/dL 8.5 - 10.5 04/08/2018 [facility] HEMATOLOGY MPV 7.1 fL 7.4 - 10.4 04/08/2018 [facility] RDW 12.8 % 11.5 - 14.5 04/08/2018 [facility] MCHC 33.9 g/dL 32.0 - 36.0 04/08/2018 [facility] MCH 30.4 pg 27.0 - 31.0 04/08/2018 [facility] Platelet 410 K/CMM 133 - 450 04/08/2018 [facility] Hgb 10.6 g/dL 12.0 - 16.0 04/08/2018 [facility] RBC 3.49 M/CMM 4.20 - 5.40 04/08/2018 [facility] WBC 12.4 K/CMM 3.7 - 10.4 04/08/2018 [facility] MCV 89.8 fL 80.0 - 98.0 04/08/2018 [facility] Hct 31.3 % 36.0 - 48.0 04/08/2018 [facility] Eosinophils # 0.2 K/CMM 0.0 - 0.5 04/08/2018 [facility] Monocytes # 1.0 K/CMM 0.0 - 0.8 04/08/2018 [facility] Monocytes 7.9 % 2.0 - 12.0 04/08/2018 [facility] Basophils 0.3 % 0.0 - 1.0 04/08/2018 [facility] Eosinophils 1.7 % 0.0 - 4.0 04/08/2018 [facility] Lymphocytes # 1.7 K/CMM 1.0 - 5.5 04/08/2018 [facility] Neutrophils # 9.5 K/CMM 1.5 - 8.1 04/08/2018 [facility] Lymphocytes 13.6 % 20.0 - 40.0 04/08/2018 [facility] Segs 76.5 % 45.0 - 75.0 04/08/2018 [facility] Abdomen AP DX Abdomen AP DX Abdomen AP DX 04/07/2018 11:01 AM CDT Ordering Physician: Lety Love MD CLINICAL INDICATION: - Nausea \\T\\ Vomiting; COMPARISON: April 05, 2018. TECHNIQUE: Routine supine AP views of the abdomen were obtained. FINDINGS: Surgical skin alexis are present at the midline and left mid abdomen. Scattered gas-filled loops of bowel are present without pathologic dilatation. No free air is seen. No pathologic calcification is identified. No acute osseous abnormality is evident. IMPRESSION: Interval abdominal surgery. No evidence of bowel obstruction or gross pneumoperitoneum. SL: [id number] 04/07/2018 - - Read by: John Parekh MD Dictated Date/time: 04/07/18 15:30 Electronically Signed by: John Parekh MD 04/07/18 15:31 FINAL REPORT [facility] CHEM PANEL eGFR 47 mL/min/1.73m2 04/07/2018 Result Comment: The eGFR is calculated using the CKD-EPI formula. In most young, healthy individuals the eGFR will be >90 mL/min/1.73m2. The eGFR declines with age. An eGFR of 60-89 may be normal in some populations, particularly the elderly, for whom the CKD-EPI formula has not been extensively validated. Use of the eGFR is not recommended in the following populations: Individuals with unstable creatinine concentrations, including patients and those with serious co-morbid conditions. Patients with extremes in muscle mass or diet. The data above are obtained from the National Kidney Disease Education Program (NKDEP) which additionally recommends that when the eGFR is used in patients with extremes of body mass index for purposes of drug dosing, the eGFR should be multiplied by the estimated BMI. [facility] CHEM PANEL AGAP 13.4 meq/L 10.0 - 20.0 04/07/2018 [facility] CHEM PANEL Calcium Lvl 7.9 mg/dL 8.5 - 10.5 04/07/2018 [facility] CHEM PANEL Creatinine Lvl 1.24 mg/dL 0.50 - 1.40 04/07/2018 [facility] CHEM PANEL Sodium Lvl 123 meq/L 135 - 145 04/07/2018 [facility] CHEM PANEL Potassium Lvl 3.4 meq/L 3.5 - 5.1 04/07/2018 [facility] CHEM PANEL Chloride Lvl 88 meq/L 95 - 109 04/07/2018 [facility] CHEM PANEL CO2 25 meq/L 24 - 32 04/07/2018 [facility] CHEM PANEL BUN 18 mg/dL 7 - 22 04/07/2018 [facility] CHEM PANEL Glucose Lvl 115 mg/dL 70 - 99 04/07/2018 [facility] HEMATOLOGY Platelet 419 K/CMM 133 - 450 04/07/2018 [facility] HEMATOLOGY MPV 6.7 fL 7.4 - 10.4 04/07/2018 [facility] MCHC 33.3 g/dL 32.0 - 36.0 04/07/2018 [facility] HEMATOLOGY RDW 12.8 % 11.5 - 14.5 04/07/2018 [facility] Hct 32.7 % 36.0 - 48.0 04/07/2018 [facility] Hgb 10.9 g/dL 12.0 - 16.0 04/07/2018 [facility] HEMATOLOGY MCH 29.7 pg 27.0 - 31.0 04/07/2018 [facility] HEMATOLOGY RBC 3.66 M/CMM 4.20 - 5.40 04/07/2018 [facility] HEMATOLOGY WBC 13.6 K/CMM 3.7 - 10.4 04/07/2018 [facility] HEMATOLOGY MCV 89.4 fL 80.0 - 98.0 04/07/2018 [facility] URINE AND STOOL UA Urobilinogen <=1.0 mg/dL 0.1 - 1.0 04/07/2018 [facility] URINE AND STOOL UA Glucose Negative mg/dL Negative mg/dL 04/07/2018 [facility] URINE AND STOOL UA Protein Negative mg/dL Negative mg/dL 04/07/2018 [facility] URINE AND STOOL UA pH 5.0 5.0 - 8.0 04/07/2018 [facility] URINE AND STOOL UA Spec Grav 1.012 <=1.030 04/07/2018 [facility] URINE AND STOOL UA Turbidity Marked *ABN* (04/06/18 9:51 PM) Clear 04/07/2018 [facility] URINE AND STOOL UA WBC 83 /HPF 0 - 5 04/07/2018 [facility] URINE AND STOOL UA Sq Epi Occasional /LPF Few /LPF 04/07/2018 [facility] URINE AND STOOL UA Leuk Est Large *ABN* (04/06/18 9:51 PM) Negative 04/07/2018 [facility] URINE AND STOOL UA Nitrite Negative (04/06/18 9:51 PM) Negative 04/07/2018 [facility] URINE AND STOOL UA Bili Negative *NA* (04/06/18 9:51 PM) Negative 04/07/2018 [facility] URINE AND STOOL UA Blood Small *ABN* (04/06/18 9:51 PM) Negative 04/07/2018 [facility] URINE AND STOOL UA Ketones Trace mg/dL Negative mg/dL 04/07/2018 [facility] URINE AND STOOL UA Hyal Cast 29 /LPF 0 - 2 04/07/2018 [facility] URINE AND STOOL UA Bacteria Moderate /HPF None Seen /HPF 04/07/2018 [facility] URINE AND STOOL UA Mucus Few /LPF None Seen /LPF 04/07/2018 [facility] URINE AND STOOL UA RBC 10 /HPF 0 - 2 04/07/2018 [facility] URINE AND STOOL UA Color Yellow *NA* (04/06/18 9:51 PM) Yellow 04/07/2018 [facility] URINE CHEM U Eos 0-2 *ABN* (04/06/18 9:51 PM) None Seen 04/07/2018 [facility] URINE CHEM U Osmolality 314 mOsm/kg 300 - 800 04/07/2018 [facility] CHEM PANEL Phosphorus 2.9 mg/dL 2.5 - 4.5 04/06/2018 [facility] CHEM PANEL eGFR 94 mL/min/1.73m2 04/06/2018 Result Comment: The eGFR is calculated using the CKD-EPI formula. In most young, healthy individuals the eGFR will be >90 mL/min/1.73m2. The eGFR declines with age. An eGFR of 60-89 may be normal in some populations, particularly the elderly, for whom the CKD-EPI formula has not been extensively validated. Use of the eGFR is not recommended in the following populations: Individuals with unstable creatinine concentrations, including patients and those with serious co-morbid conditions. Patients with extremes in muscle mass or diet. The data above are obtained from the National Kidney Disease Education Program (NKDEP) which additionally recommends that when the eGFR is used in patients with extremes of body mass index for purposes of drug dosing, the eGFR should be multiplied by the estimated BMI. [facility] CHEM PANEL CO2 26 meq/L 24 - 32 04/06/2018 [facility] CHEM PANEL AGAP 12.5 meq/L 10.0 - 20.0 04/06/2018 [facility] CHEM PANEL Calcium Lvl 8.6 mg/dL 8.5 - 10.5 04/06/2018 [facility] CHEM PANEL Glucose Lvl 117 mg/dL 70 - 99 04/06/2018 [facility] CHEM PANEL BUN 9 mg/dL 7 - 22 04/06/2018 [facility] CHEM PANEL Creatinine Lvl 0.70 mg/dL 0.50 - 1.40 04/06/2018 [facility] CHEM PANEL Sodium Lvl 128 meq/L 135 - 145 04/06/2018 [facility] CHEM PANEL Potassium Lvl 3.5 meq/L 3.5 - 5.1 04/06/2018 [facility] CHEM PANEL Chloride Lvl 93 meq/L 95 - 109 04/06/2018 [facility] CHEM PANEL Magnesium Lvl 1.1 mg/dL 1.8 - 2.4 04/06/2018 [facility] CHEM PANEL Osmolality 272 mOsm/kg 280 - 300 04/06/2018 [facility] ENDOCRINOLOGY Cortisol 34.9 ug/dl 04/06/2018 [facility] HEMATOLOGY MPV 6.5 fL 7.4 - 10.4 04/06/2018 [facility] WBC 14.1 K/CMM 3.7 - 10.4 04/06/2018 [facility] RBC 3.72 M/CMM 4.20 - 5.40 04/06/2018 [facility] Hgb 11.6 g/dL 12.0 - 16.0 04/06/2018 [facility] Hct 33.5 % 36.0 - 48.0 04/06/2018 [facility] MCV 90.3 fL 80.0 - 98.0 04/06/2018 [facility] MCH 31.3 pg 27.0 - 31.0 04/06/2018 [facility] MCHC 34.7 g/dL 32.0 - 36.0 04/06/2018 [facility] RDW 13.1 % 11.5 - 14.5 04/06/2018 [facility] Platelet 476 K/CMM 133 - 450 04/06/2018 [facility] Segs 82.7 % 45.0 - 75.0 04/06/2018 [facility] Lymphocytes 9.0 % 20.0 - 40.0 04/06/2018 [facility] Eosinophils 0.5 % 0.0 - 4.0 04/06/2018 [facility] Basophils 0.3 % 0.0 - 1.0 04/06/2018 [facility] Neutrophils # 11.6 K/CMM 1.5 - 8.1 04/06/2018 [facility] Lymphocytes # 1.3 K/CMM 1.0 - 5.5 04/06/2018 [facility] Monocytes 7.5 % 2.0 - 12.0 04/06/2018 [facility] Monocytes # 1.0 K/CMM 0.0 - 0.8 04/06/2018 [facility] Eosinophils # 0.1 K/CMM 0.0 - 0.5 04/06/2018 [facility] BACTERIAL - SEROLOGY MRSA by PCR Negative (04/06/18 3:35 AM) 04/06/2018 [facility] Culture: Urine <10,000 CFU/mL Skin Arcelia 04/06/2018 [facility] URINE AND STOOL UA Protein Negative mg/dL Negative mg/dL 04/06/2018 [facility] URINE AND STOOL UA Spec Grav 1.010 <=1.030 04/06/2018 [facility] URINE AND STOOL UA pH 6.5 5.0 - 8.0 04/06/2018 [facility] URINE AND STOOL UA Bili Negative *NA* (04/05/18 8:00 PM) Negative 04/06/2018 [facility] URINE AND STOOL UA Nitrite Negative (04/05/18 8:00 PM) Negative 04/06/2018 [facility] URINE AND STOOL UA Glucose Negative mg/dL Negative mg/dL 04/06/2018 [facility] URINE AND STOOL UA Ketones Negative mg/dL Negative mg/dL 04/06/2018 [facility] URINE AND STOOL UA Urobilinogen 0.2 EU/dL 0.1 - 1.0 04/06/2018 [facility] URINE AND STOOL UA Blood Negative (04/05/18 8:00 PM) Negative 04/06/2018 [facility] URINE AND STOOL UA Leuk Est Negative (04/05/18 8:00 PM) Negative 04/06/2018 [facility] URINE AND STOOL UA Color Yellow *NA* (04/05/18 8:00 PM) Yellow 04/06/2018 [facility] URINE AND STOOL UA Turbidity Clear (04/05/18 8:00 PM) Clear 04/06/2018 [facility] URINE AND STOOL UA Bacteria Occasional /HPF None Seen /HPF 04/06/2018 [facility] URINE AND STOOL UA RBC 0-2 /HPF 0 - 2 04/06/2018 [facility] URINE AND STOOL UA WBC 0-2 /HPF None Seen /HPF 04/06/2018 [facility] URINE AND STOOL UA Sq Epi Occasional /LPF Few /LPF 04/06/2018 [facility] CARDIAC ENZYMES proBNP 212 pg/mL 0 - 125 04/05/2018 [facility] CARDIAC ENZYMES CK MB 2.0 ng/mL 0.5 - 3.6 04/05/2018 [facility] CARDIAC ENZYMES Troponin-I null 0.00 - 0.40 04/05/2018 [facility] CARDIAC ENZYMES Total CK 86 unit/L 12 - 191 04/05/2018 [facility] CARDIAC ENZYMES CK MB Index 2.3 0.0 - 2.5 04/05/2018 [facility] CHEM PANEL Lipase Lvl 72 unit/L 73 - 393 04/05/2018 [facility] CHEM PANEL Bili Total 0.3 mg/dL 0.2 - 1.3 04/05/2018 [facility] CHEM PANEL AST 17 unit/L 0 - 37 04/05/2018 [facility] CHEM PANEL ALT 27 unit/L 0 - 65 04/05/2018 [facility] CHEM PANEL Albumin Lvl 4.0 g/dL 3.5 - 5.0 04/05/2018 [facility] CHEM PANEL Total Protein 7.5 g/dL 6.4 - 8.4 04/05/2018 [facility] CHEM PANEL Alk Phos 122 unit/L 39 - 136 04/05/2018 [facility] CHEM PANEL A/G Ratio 1.1 0.7 - 1.6 04/05/2018 [facility] CHEM PANEL Globulin 3.5 g/dL 2.7 - 4.2 04/05/2018 [facility] CHEM PANEL B/C Ratio 14 6 - 25 04/05/2018 [facility] HEMATOLOGY PTT 32.3 s 22.9 - 35.8 04/05/2018 [facility] HEMATOLOGY PT 12.9 s 12.0 - 14.7 04/05/2018 [facility] HEMATOLOGY INR 0.97 0.85 - 1.17 04/05/2018 [facility] HEMATOLOGY Lymphocytes # 0.7 K/CMM 1.0 - 5.5 04/05/2018 [facility] HEMATOLOGY Basophils 0.1 % 0.0 - 1.0 04/05/2018 [facility] HEMATOLOGY Neutrophils # 7.3 K/CMM 1.5 - 8.1 04/05/2018 [facility] HEMATOLOGY Monocytes 3.8 % 2.0 - 12.0 04/05/2018 [facility] HEMATOLOGY Eosinophils 0.8 % 0.0 - 4.0 04/05/2018 [facility] HEMATOLOGY Lymphocytes 8.1 % 20.0 - 40.0 04/05/2018 [facility] HEMATOLOGY Segs 87.2 % 45.0 - 75.0 04/05/2018 [facility] Monocytes # 0.3 K/CMM 0.0 - 0.8 04/05/2018 [facility] HEMATOLOGY Eosinophils # 0.1 K/CMM 0.0 - 0.5 04/05/2018 [facility] Brain wo contrast CT Brain wo contrast CT EXAM: CT BRAIN WITHOUT CONTRAST DATE: 04/05/2018 5:28 PM CDT INDICATION: Altered speech. COMPARISON: 02/21/2018. TECHNIQUE: Noncontrast axial imaging of the brain was acquired from the vertex to the skull base. Reformatted coronal and sagittal images were provided for review. CT radiation dose DLP: 931.60 mGy-cm. FINDINGS: No acute intracranial hemorrhage, midline shift, or mass effect is identified. The jean baptiste-white matter differentiation is preserved. The ventricles and sulci are within normal limits, without evidence for hydrocephalus. The orbits, paranasal sinuses, and mastoid air cells are unremarkable. Old nasal bone fractures are suspected. The calvarium and skull base are intact. There is atherosclerotic calcification of the carotid siphons. IMPRESSION: No acute intracranial abnormality. SL: [id number] 04/05/2018 - - Read by: Dannie López MD Dictated Date/time: 04/05/18 19:03 Electronically Signed by: Dannie López MD 04/05/18 19:06 FINAL REPORT [facility] Chest 1 v for Placement DX Chest 1 v for Placement DX Curvilinear lucency along the lateral aspect of the right pleural space at the level of the right 7th/8th posterior rib interspace muscle likely represents sequela of a skinfold as opposed to a pneumothorax. A repeat study could be performed to exclude the small likelihood of a pneumothorax. This was discussed with Dr. Ballesteros by Dr. Astudillo on 04/05/2018 at 1734 hours. EXAM: AP radiograph of the chest, 1 image obtained INDICATION: Right IJ central venous line placement COMPARISON: 04/05/2018 chest radiograph 5 hours FINDINGS: Heart, mediastinum, and pulmonary vessels are within normal limits. No consolidation, pneumothorax, or pleural effusion. No acute osseous abnormalities identified. IMPRESSION: No acute cardiopulmonary findings. ROBIN: [id number] 04/05/2018 - - Read by: Cordell Astudillo MD Dictated Date/time: 04/05/18 17:31 Electronically Signed by: Cordell Astudillo MD 04/05/18 17:34 FINAL REPORT - - Read by: Cordell Astudillo MD Dictated Date/time: 04/05/18 17:23 Electronically Signed by: Cordell Astudillo MD 04/05/18 17:25 FINAL REPORT [facility] Chest 1view DX Chest 1view DX Study: Chest 1view DX Clinical Indication: - chest pain Comparison: Chest x-ray from 02/21/2018 FINDINGS: Cardiac silhouette is normal in size. Aortic arch calcification is seen. Mild right perihilar scarring is noted. There is no pleural effusion or pneumothorax. Surgical clips along the right neck soft tissues are seen. The osseous structures are unremarkable. IMPRESSION: No acute cardiopulmonary disease. SL: [id number] 04/05/2018 - - Read by: Saturnino Wayne MD Dictated Date/time: 04/05/18 17:13 Electronically Signed by: Saturnino Wayne MD 04/05/18 17:14 FINAL REPORT [facility] CARDIAC ENZYMES Total CK 163 unit/L 12 - 191 03/07/2018 [facility] CARDIAC ENZYMES Troponin-I null 0.00 - 0.40 03/07/2018 [facility] ELECTROLYTES AGAP 16.3 meq/L 10.0 - 20.0 03/07/2018 [facility] ELECTROLYTES B/C Ratio 14 6 - 25 03/07/2018 [facility] ELECTROLYTES Globulin 3.4 g/dL 2.7 - 4.2 03/07/2018 [facility] ELECTROLYTES A/G Ratio 1.0 0.7 - 1.6 03/07/2018 [facility] ELECTROLYTES eGFR 72 mL/min/1.73m2 03/07/2018 Result Comment: The eGFR is calculated using the CKD-EPI formula. In most young, healthy individuals the eGFR will be >90 mL/min/1.73m2. The eGFR declines with age. An eGFR of 60-89 may be normal in some populations, particularly the elderly, for whom the CKD-EPI formula has not been extensively validated. Use of the eGFR is not recommended in the following populations: Individuals with unstable creatinine concentrations, including patients and those with serious co-morbid conditions. Patients with extremes in muscle mass or diet. The data above are obtained from the National Kidney Disease Education Program (NKDEP) which additionally recommends that when the eGFR is used in patients with extremes of body mass index for purposes of drug dosing, the eGFR should be multiplied by the estimated BMI. [facility] ELECTROLYTES ALT 30 unit/L 0 - 65 03/07/2018 [facility] ELECTROLYTES AST 18 unit/L 0 - 37 03/07/2018 [facility] ELECTROLYTES Bili Total 0.4 mg/dL 0.2 - 1.3 03/07/2018 [facility] ELECTROLYTES Total Protein 6.9 g/dL 6.4 - 8.4 03/07/2018 [facility] ELECTROLYTES Albumin Lvl 3.5 g/dL 3.5 - 5.0 03/07/2018 [facility] ELECTROLYTES Alk Phos 111 unit/L 39 - 136 03/07/2018 [facility] ELECTROLYTES Glucose Lvl 88 mg/dL 70 - 99 03/07/2018 [facility] ELECTROLYTES BUN 12 mg/dL 7 - 22 03/07/2018 [facility] ELECTROLYTES Potassium Lvl 4.3 meq/L 3.5 - 5.1 03/07/2018 [facility] ELECTROLYTES Chloride Lvl 85 meq/L 95 - 109 03/07/2018 [facility] ELECTROLYTES CO2 28 meq/L 24 - 32 03/07/2018 [facility] ELECTROLYTES Creatinine Lvl 0.87 mg/dL 0.50 - 1.40 03/07/2018 [facility] ELECTROLYTES Sodium Lvl 125 meq/L 135 - 145 03/07/2018 [facility] ELECTROLYTES Calcium Lvl 9.0 mg/dL 8.5 - 10.5 03/07/2018 [facility] HEMATOLOGY PTT 36.5 s 22.9 - 35.8 03/07/2018 [facility] HEMATOLOGY INR 0.94 0.85 - 1.17 03/07/2018 [facility] HEMATOLOGY PT 12.6 s 12.0 - 14.7 03/07/2018 [facility] HEMATOLOGY Hgb 10.0 g/dL 12.0 - 16.0 03/07/2018 [facility] Hct 29.7 % 36.0 - 48.0 03/07/2018 [facility] MCV 90.8 fL 80.0 - 98.0 03/07/2018 [facility] MCH 30.6 pg 27.0 - 31.0 03/07/2018 [facility] HEMATOLOGY RBC 3.27 M/CMM 4.20 - 5.40 03/07/2018 [facility] WBC 14.2 K/CMM 3.7 - 10.4 03/07/2018 [facility] RDW 12.0 % 11.5 - 14.5 03/07/2018 [facility] MCHC 33.7 g/dL 32.0 - 36.0 03/07/2018 [facility] MPV 6.5 fL 7.4 - 10.4 03/07/2018 [facility] Platelet 426 K/CMM 133 - 450 03/07/2018 [facility] HEMATOLOGY Lymphocytes # 1.4 K/CMM 1.0 - 5.5 03/07/2018 [facility] HEMATOLOGY Monocytes # 0.6 K/CMM 0.0 - 0.8 03/07/2018 [facility] HEMATOLOGY Segs-Bands # 11.9 K/CMM 1.5 - 8.1 03/07/2018 [facility] Eosinophils # 0.3 K/CMM 0.0 - 0.5 03/07/2018 [facility] Lymphocytes 10.2 % 20.0 - 40.0 03/07/2018 [facility] HEMATOLOGY Basophils 0.1 % 0.0 - 1.0 03/07/2018 [facility] HEMATOLOGY Segs 83.0 % 45.0 - 75.0 03/07/2018 [facility] HEMATOLOGY Eosinophils 2.4 % 0.0 - 4.0 03/07/2018 [facility] HEMATOLOGY Monocytes 4.3 % 2.0 - 12.0 03/07/2018 [facility] Ext Lower Venous Doppler Unilat US Ext Lower Venous Doppler Unilat US Clinical Indication: - pain swelling from L foot up to midthigh Comparison: None TECHNIQUE: Sonographic evaluation of the left lower extremity veins was performed using high resolution B-mode imaging, along with pulse and color Doppler imaging. FINDINGS: The common femoral vein, superficial femoral vein, popliteal vein and visualized posterior tibial/calf veins are patent. There is no echogenic debris to suggest deep venous thrombosis. The saphenofemoral junction is unremarkable. Thrombosis of a superficial vein in the posterior knee region. IMPRESSION: No sonographic evidence for deep vein thrombosis of the left lower extremity. Superficial thrombophlebitis posterior knee region. SL: JORGE 03/07/2018 - - Read by: Zane Nolasco MD Dictated Date/time: 03/07/18 05:06 Electronically Signed by: Zane Nolasco MD 03/07/18 05:06 FINAL REPORT [facility] Foot series DX Foot series DX LEFT FOOT RADIOGRAPH 3 VIEW CLINICAL INDICATION: Left foot pain and swelling COMPARISON: Left foot radiograph 12/26/2009 IMPRESSION: The soft tissues are radiographically unremarkable. No acute bony abnormalities are visualized. 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 SL:16 03/07/2018 - - Read by: Grey Benito MD Dictated Date/time: 03/07/18 04:05 Electronically Signed by: Grey Benito MD 03/07/18 04:07 FINAL REPORT [facility] ELECTROLYTES Chloride Lvl 95 meq/L 95 - 109 02/23/2018 [facility] ELECTROLYTES Potassium Lvl 4.5 meq/L 3.5 - 5.1 02/23/2018 [facility] ELECTROLYTES CO2 29 meq/L 24 - 32 02/23/2018 [facility] ELECTROLYTES eGFR 89 mL/min/1.73m2 02/23/2018 Result Comment: The eGFR is calculated using the CKD-EPI formula. In most young, healthy individuals the eGFR will be >90 mL/min/1.73m2. The eGFR declines with age. An eGFR of 60-89 may be normal in some populations, particularly the elderly, for whom the CKD-EPI formula has not been extensively validated. Use of the eGFR is not recommended in the following populations: Individuals with unstable creatinine concentrations, including patients and those with serious co-morbid conditions. Patients with extremes in muscle mass or diet. The data above are obtained from the National Kidney Disease Education Program (NKDEP) which additionally recommends that when the eGFR is used in patients with extremes of body mass index for purposes of drug dosing, the eGFR should be multiplied by the estimated BMI. [facility] ELECTROLYTES Sodium Lvl 131 meq/L 135 - 145 02/23/2018 [facility] ELECTROLYTES Creatinine Lvl 0.73 mg/dL 0.50 - 1.40 02/23/2018 [facility] ELECTROLYTES Calcium Lvl 7.8 mg/dL 8.5 - 10.5 02/23/2018 [facility] ELECTROLYTES AGAP 11.5 meq/L 10.0 - 20.0 02/23/2018 [facility] ELECTROLYTES Glucose Lvl 101 mg/dL 70 - 99 02/23/2018 [facility] ELECTROLYTES BUN 10 mg/dL 7 - 22 02/23/2018 [facility] URINE CHEM U Osmolality 136 mOsm/kg 300 - 800 02/22/2018 [facility] URINE CHEM U Sodium 32 meq/L 02/22/2018 [facility] CARDIAC ENZYMES CK MB Index 2.0 0.0 - 2.5 02/22/2018 [facility] CARDIAC ENZYMES CK MB 4.3 ng/mL 0.5 - 3.6 02/22/2018 [facility] CARDIAC ENZYMES Total CK 216 unit/L 12 - 191 02/22/2018 [facility] CARDIAC ENZYMES Troponin-I null 0.00 - 0.40 02/22/2018 [facility] CHEM PANEL eGFR 88 mL/min/1.73m2 02/22/2018 Result Comment: The eGFR is calculated using the CKD-EPI formula. In most young, healthy individuals the eGFR will be >90 mL/min/1.73m2. The eGFR declines with age. An eGFR of 60-89 may be normal in some populations, particularly the elderly, for whom the CKD-EPI formula has not been extensively validated. Use of the eGFR is not recommended in the following populations: Individuals with unstable creatinine concentrations, including patients and those with serious co-morbid conditions. Patients with extremes in muscle mass or diet. The data above are obtained from the National Kidney Disease Education Program (NKDEP) which additionally recommends that when the eGFR is used in patients with extremes of body mass index for purposes of drug dosing, the eGFR should be multiplied by the estimated BMI. [facility] CHEM PANEL Phosphorus 4.6 mg/dL 2.5 - 4.5 02/22/2018 [facility] ENDOCRINOLOGY Cortisol 6.5 ug/dl 02/22/2018 [facility] LIPIDS VLDL 19 02/22/2018 [facility] LIPIDS LDL (Calculated) 91 mg/dL <=99 mg/dL 02/22/2018 [facility] LIPIDS Chol 166 mg/dL <=199 mg/dL 02/22/2018 [facility] LIPIDS Trig 97 mg/dL <=149 mg/dL 02/22/2018 [facility] LIPIDS CHD Risk 2.96 3.90 - 5.80 02/22/2018 [facility] LIPIDS HDL 56 mg/dL >=61 mg/dL 02/22/2018 [facility] CHEM PANEL Glucose Lvl 123 mg/dL 70 - 99 02/22/2018 [facility] CHEM PANEL Potassium Lvl 3.9 meq/L 3.5 - 5.1 02/22/2018 [facility] CHEM PANEL ALT 64 unit/L 0 - 65 02/22/2018 [facility] CHEM PANEL A/G Ratio 1.0 0.7 - 1.6 02/22/2018 [facility] CHEM PANEL Globulin 3.2 g/dL 2.7 - 4.2 02/22/2018 [facility] CHEM PANEL Albumin Lvl 3.1 g/dL 3.5 - 5.0 02/22/2018 [facility] CHEM PANEL Total Protein 6.3 g/dL 6.4 - 8.4 02/22/2018 [facility] CHEM PANEL Bili Total 0.4 mg/dL 0.2 - 1.3 02/22/2018 [facility] CHEM PANEL Alk Phos 95 unit/L 39 - 136 02/22/2018 [facility] CHEM PANEL AST 43 unit/L 0 - 37 02/22/2018 [facility] CHEM PANEL BUN 9 mg/dL 7 - 22 02/22/2018 [facility] CHEM PANEL Sodium Lvl 128 meq/L 135 - 145 02/22/2018 [facility] CHEM PANEL Creatinine Lvl 0.74 mg/dL 0.50 - 1.40 02/22/2018 [facility] CHEM PANEL AGAP 12.9 meq/L 10.0 - 20.0 02/22/2018 [facility] CHEM PANEL CO2 30 meq/L 24 - 32 02/22/2018 [facility] CHEM PANEL B/C Ratio 12 6 - 25 02/22/2018 [facility] CHEM PANEL Calcium Lvl 9.2 mg/dL 8.5 - 10.5 02/22/2018 [facility] CHEM PANEL Chloride Lvl 89 meq/L 95 - 109 02/22/2018 [facility] CHEM PANEL Magnesium Lvl 1.6 mg/dL 1.8 - 2.4 02/22/2018 [facility] HEMATOLOGY MPV 6.3 fL 7.4 - 10.4 02/22/2018 [facility] HEMATOLOGY Platelet 250 K/CMM 133 - 450 02/22/2018 [facility] HEMATOLOGY MCHC 33.1 g/dL 32.0 - 36.0 02/22/2018 [facility] HEMATOLOGY RDW 12.7 % 11.5 - 14.5 02/22/2018 [facility] HEMATOLOGY MCV 92.0 fL 80.0 - 98.0 02/22/2018 [facility] HEMATOLOGY Hct 33.6 % 36.0 - 48.0 02/22/2018 [facility] HEMATOLOGY Hgb 11.1 g/dL 12.0 - 16.0 02/22/2018 [facility] MCH 30.4 pg 27.0 - 31.0 02/22/2018 [facility] HEMATOLOGY RBC 3.65 M/CMM 4.20 - 5.40 02/22/2018 [facility] HEMATOLOGY WBC 8.7 K/CMM 3.7 - 10.4 02/22/2018 [facility] DRUG SCREEN U Phencyc Scr Negative *NA* (02/22/18 12:36 AM) Negative 02/22/2018 [facility] DRUG SCREEN UDS Note See Note (02/22/18 12:36 AM) 02/22/2018 [facility] DRUG SCREEN U Benzodia Scr Positive *ABN* (02/22/18 12:36 AM) Negative 02/22/2018 [facility] DRUG SCREEN U Amph Scr Negative *NA* (02/22/18 12:36 AM) Negative 02/22/2018 [facility] DRUG SCREEN U Narda Scr Negative *NA* (02/22/18 12:36 AM) Negative 02/22/2018 [facility] DRUG SCREEN U Opiate Scr Positive *ABN* (02/22/18 12:36 AM) Negative 02/22/2018 [facility] DRUG SCREEN U Cannab Scr Negative *NA* (02/22/18 12:36 AM) Negative 02/22/2018 [facility] DRUG SCREEN U Cocaine Scr Negative *NA* (02/22/18 12:36 AM) Negative 02/22/2018 [facility] Ext Lower Venous Doppler Bilat US Ext Lower Venous Doppler Bilat US Patient Name: KATIANA GOLDMAN : 1955; Age: 62 years y/o Female MR: [id number] Study: Ext Lower Venous Doppler Bilat US 02/21/2018 9:07 PM CDT Ordering Physician: Jesica Danielle MD Clinical Indication: Bilateral lower extremity swelling Comparison: None FINDINGS: Compression duplex ultrasound of both lower extremities was performed from the inguinal through the infrageniculate popliteal regions. The visualized superficial and deep veins are patent and compressible without evidence of intraluminal thrombus. Satisfactory spontaneous and augmented flow is demonstrated in the visualized segments. IMPRESSION: Negative bilateral lower extremity venous Doppler without evidence of deep vein thrombosis. SL: [id number] 02/22/2018 - - Read by: Robby Moore MD Dictated Date/time: 02/22/18 10:08 Electronically Signed by: Robby Moore MD 02/22/18 10:10 FINAL REPORT [facility] Carotid artery Doppler bilat US Carotid artery Doppler bilat US STUDY: Carotid artery Doppler bilat US 02/21/2018 7:40 PM CDT Ordering Physician: Jesica Danielle MD Patient Name: KATIANA GOLDMAN MR: [id number] : 1955; Age: 62 years y/o Female Clinical Indication: Syncope and collapse - syncope Comparison: None TECHNIQUE: Jean Baptiste-scale, color Doppler and spectral Doppler of the carotid arteries was performed. Any reported ICA stenoses indirectly reference the distal internal carotid diameter as the denominator for the stenosis measurement, utilizing consensus panel criteria. FINDINGS: RIGHT CAROTID Grayscale images:Mild to moderate calcified plaque at the right carotid bifurcation and internal carotid artery origin. ICA PSV: 152 cm/sec CCA PSV: 87 cm/sec ICA/CCA PSV RATIO: 1.8 Vertebral flow: Not visualized. External carotid: Patent. LEFT CAROTID SYSTEM Grayscale images: Mild to moderate calcified plaque at the left carotid bifurcation and internal carotid artery origin. ICA PSV: 157 cm/sec CCA PSV: 125 cm/sec ICA/CCA PSV RATIO: 1.3 Vertebral flow: Antegrade. External carotid: Patent. IMPRESSION: 1. RIGHT: ICA stenosis <50% by velocity criteria. 2. LEFT: ICA stenosis <50% by velocity criteria. 3. Mild to moderate calcified plaque is seen at both carotid bifurcations and internal carotid artery origins with increased peak systolic velocities, but with only mild elevation of the internal carotid artery/CCA ratios. Further evaluation could be obtained with CTA or MRA if clinically indicated and no contraindications are present. Consensus panel Doppler US criteria for diagnosis of ICA stenosis: Stenosis (%) ICA PSV (cm/sec) ICA/CCA ratio <50 <125 <2.0 50-69 125-230 2.0-4.0 >70 but less than >230 >4.0 near occlusion Near occlusion High, low, or Variable undetectable SL: [id number] 02/22/2018 - - Read by: Robby Moore MD Dictated Date/time: 02/22/18 10:02 Electronically Signed by: Robby Moore MD 02/22/18 10:06 FINAL REPORT [facility] CARDIAC ENZYMES CK MB 5.7 ng/mL 0.5 - 3.6 02/22/2018 [facility] CARDIAC ENZYMES CK MB Index 1.8 0.0 - 2.5 02/22/2018 [facility] CARDIAC ENZYMES Troponin-I null 0.00 - 0.40 02/22/2018 [facility] CARDIAC ENZYMES Total CK 313 unit/L 12 - 191 02/22/2018 [facility] URINE AND STOOL UA Mucus Few /LPF None Seen /LPF 02/21/2018 [facility] URINE AND STOOL UA Urobilinogen <=1.0 mg/dL 0.1 - 1.0 02/21/2018 [facility] URINE AND STOOL UA Nitrite Negative (02/21/18 6:19 PM) Negative 02/21/2018 [facility] URINE AND STOOL UA RBC 1 /HPF 0 - 2 02/21/2018 [facility] URINE AND STOOL UA WBC 1 /HPF 0 - 5 02/21/2018 [facility] URINE AND STOOL UA Leuk Est Negative (02/21/18 6:19 PM) Negative 02/21/2018 [facility] URINE AND STOOL UA Sq Epi Occasional /LPF Few /LPF 02/21/2018 [facility] URINE AND STOOL UA pH 6.0 5.0 - 8.0 02/21/2018 [facility] URINE AND STOOL UA Protein Negative mg/dL Negative mg/dL 02/21/2018 [facility] URINE AND STOOL UA Glucose Negative mg/dL Negative mg/dL 02/21/2018 [facility] URINE AND STOOL UA Ketones Negative mg/dL Negative mg/dL 02/21/2018 [facility] URINE AND STOOL UA Spec Grav 1.004 <=1.030 02/21/2018 [facility] URINE AND STOOL UA Color Yellow *NA* (02/21/18 6:19 PM) Yellow 02/21/2018 [facility] URINE AND STOOL UA Turbidity Slight *ABN* (02/21/18 6:19 PM) Clear 02/21/2018 [facility] URINE AND STOOL UA Bili Negative *NA* (02/21/18 6:19 PM) Negative 02/21/2018 [facility] URINE AND STOOL UA Blood Negative (02/21/18 6:19 PM) Negative 02/21/2018 [facility] CARDIAC ENZYMES BNP 18 pg/mL <=100 pg/mL 02/21/2018 [facility] CARDIAC ENZYMES CK MB 5.4 ng/mL 0.5 - 3.6 02/21/2018 [facility] CARDIAC ENZYMES Total CK 336 unit/L 12 - 191 02/21/2018 [facility] CARDIAC ENZYMES Troponin-I null 0.00 - 0.40 02/21/2018 [facility] CARDIAC ENZYMES CK MB Index 1.6 0.0 - 2.5 02/21/2018 [facility] CHEM PANEL eGFR 81 mL/min/1.73m2 02/21/2018 Result Comment: The eGFR is calculated using the CKD-EPI formula. In most young, healthy individuals the eGFR will be >90 mL/min/1.73m2. The eGFR declines with age. An eGFR of 60-89 may be normal in some populations, particularly the elderly, for whom the CKD-EPI formula has not been extensively validated. Use of the eGFR is not recommended in the following populations: Individuals with unstable creatinine concentrations, including patients and those with serious co-morbid conditions. Patients with extremes in muscle mass or diet. The data above are obtained from the National Kidney Disease Education Program (NKDEP) which additionally recommends that when the eGFR is used in patients with extremes of body mass index for purposes of drug dosing, the eGFR should be multiplied by the estimated BMI. [facility] CHEM PANEL Calcium Lvl 9.1 mg/dL 8.5 - 10.5 02/21/2018 [facility] CHEM PANEL Chloride Lvl 83 meq/L 95 - 109 02/21/2018 [facility] CHEM PANEL Potassium Lvl 4.7 meq/L 3.5 - 5.1 02/21/2018 [facility] CHEM PANEL AGAP 10.7 meq/L 10.0 - 20.0 02/21/2018 [facility] CHEM PANEL CO2 30 meq/L 24 - 32 02/21/2018 [facility] CHEM PANEL Creatinine Lvl 0.79 mg/dL 0.50 - 1.40 02/21/2018 [facility] CHEM PANEL Sodium Lvl 119 meq/L 135 - 145 02/21/2018 Result Comment: Critical Result(s) called to Nakita Ruiz at 02/21/2018 18:18 by PETEY. Read back OK. [facility] CHEM PANEL BUN 10 mg/dL 7 - 22 02/21/2018 [facility] CHEM PANEL Glucose Lvl 95 mg/dL 70 - 99 02/21/2018 [facility] CHEM PANEL Bili Total 0.2 mg/dL 0.2 - 1.3 02/21/2018 [facility] CHEM PANEL Alk Phos 104 unit/L 39 - 136 02/21/2018 [facility] CHEM PANEL AST 41 unit/L 0 - 37 02/21/2018 [facility] CHEM PANEL Globulin 3.4 g/dL 2.7 - 4.2 02/21/2018 [facility] CHEM PANEL Albumin Lvl 3.4 g/dL 3.5 - 5.0 02/21/2018 [facility] CHEM PANEL ALT 58 unit/L 0 - 65 02/21/2018 [facility] CHEM PANEL A/G Ratio 1.0 0.7 - 1.6 02/21/2018 [facility] CHEM PANEL Total Protein 6.8 g/dL 6.4 - 8.4 02/21/2018 [facility] CHEM PANEL B/C Ratio 13 6 - 25 02/21/2018 [facility] CHEM PANEL Magnesium Lvl 1.2 mg/dL 1.8 - 2.4 02/21/2018 [facility] CHEM PANEL Osmolality 249 mOsm/kg 280 - 300 02/21/2018 [facility] ENDOCRINOLOGY Cortisol 20.0 ug/dl 02/21/2018 [facility] MPV 6.2 fL 7.4 - 10.4 02/21/2018 [facility] Hct 31.0 % 36.0 - 48.0 02/21/2018 [facility] Platelet 332 K/CMM 133 - 450 02/21/2018 [facility] RDW 12.5 % 11.5 - 14.5 02/21/2018 [facility] MCHC 33.9 g/dL 32.0 - 36.0 02/21/2018 [facility] RBC 3.47 M/CMM 4.20 - 5.40 02/21/2018 [facility] MCV 89.5 fL 80.0 - 98.0 02/21/2018 [facility] Hgb 10.5 g/dL 12.0 - 16.0 02/21/2018 [facility] MCH 30.4 pg 27.0 - 31.0 02/21/2018 [facility] WBC 11.3 K/CMM 3.7 - 10.4 02/21/2018 [facility] PTT 32.7 s 22.9 - 35.8 02/21/2018 [facility] PT 11.5 s 12.0 - 14.7 02/21/2018 [facility] INR 0.84 0.85 - 1.17 02/21/2018 [facility] Lymphocytes # 0.9 K/CMM 1.0 - 5.5 02/21/2018 [facility] Basophils # 0.1 K/CMM 0.0 - 0.2 02/21/2018 [facility] Eosinophils # 0.2 K/CMM 0.0 - 0.5 02/21/2018 [facility] Monocytes # 0.7 K/CMM 0.0 - 0.8 02/21/2018 [facility] Segs-Bands # 9.4 K/CMM 1.5 - 8.1 02/21/2018 [facility] Segs 83.2 % 45.0 - 75.0 02/21/2018 [facility] Eosinophils 2.0 % 0.0 - 4.0 02/21/2018 [facility] HEMATOLOGY Basophils 0.6 % 0.0 - 1.0 02/21/2018 [facility] HEMATOLOGY Lymphocytes 8.3 % 20.0 - 40.0 02/21/2018 [facility] HEMATOLOGY Monocytes 5.9 % 2.0 - 12.0 02/21/2018 [facility] SPECIAL CHEMISTRY ACTH Lvl 14 pg/mL 0 - 46 02/21/2018 [facility] Renal Stone CT Renal Stone CT Clinical Indication: - Nausea and vomiting; Comparison: 08/15/2017 TECHNIQUE: Sequential trans-axial images were obtained with a multi-detector helical CT without administration of IV contrast. Coronal and sagittal reconstructions were obtained. Oral Contrast: Not given CT Radiation Dose DLP 905.4 mGy-cm FINDINGS: LUNG BASES: Diffuse centrilobular emphysema with subsegmental atelectasis in the lung bases. : No urolithiasis. No hydronephrosis. No renal contour deforming masses. No perinephric fluid collections. The bladder is grossly normal. ABDOMINAL ORGANS: The noncontrast images of the liver, spleen, pancreas, and adrenals are unremarkable. The gallbladder is surgically absent. GI: No evidence of bowel obstruction. No bowel wall thickening or perienteric inflammation. PERITONEUM AND RETROPERITONEUM: There is no abdominal or pelvic lymphadenopathy. There is no pneumoperitoneum or ascites. The retroperitoneal region appears unremarkable. Diffuse aortic atherosclerosis. Evidence of prior aortobifemoral bypass, not evaluated on this noncontrast exam. MSK: There are no acute osseous abnormalities seen. Implanted epidural pain management device, seen in the left lower quadrant. IMPRESSION: 1. No acute abnormality on noncontrast CT examination of the abdomen and pelvis. SL: CHANDNI 02/21/2018 - - Read by: Lawrence Waddell MD Dictated Date/time: 02/22/18 10:53 Electronically Signed by: Lawrence Waddell MD 02/22/18 11:01 FINAL REPORT [facility] Brain wo contrast CT Brain wo contrast CT EXAM: CT BRAIN WITHOUT CONTRAST DATE: 02/21/2018 5:28 PM CDT INDICATION: Head pain. Trauma. COMPARISON: 04/14/2017. TECHNIQUE: CT images were obtained from the foramen magnum to the vertex without intravenous contrast on a multidetector CT. Coronal and sagittal reconstructions were also provided for review. CT radiation dose DLP: 1702.44 mGy-cm FINDINGS: The examination is limited by motion artifact. No acute intracranial hemorrhage, midline shift, or mass effect is identified. The jean baptiste-white matter differentiation is preserved. The ventricles and sulci are within normal limits, without evidence for hydrocephalus. The orbits, paranasal sinuses, and mastoid air cells are unremarkable. The calvarium and skull base are intact. There is atherosclerotic calcification of the carotid siphons. IMPRESSION: No acute intracranial abnormality. SL: [id number] 02/21/2018 - - Read by: Dannie López MD Dictated Date/time: 02/21/18 18:43 Electronically Signed by: Dannie López MD 02/21/18 18:47 FINAL REPORT [facility] Chest 1view DX Chest 1view DX EXAM: AP radiograph of the chest, 1 image obtained INDICATION: Syncope COMPARISON: 02/08/2018 chest radiograph FINDINGS: Heart, mediastinum, and pulmonary vessels are within normal limits. No consolidation, pneumothorax, or pleural effusion. Reticular opacities in the right lateral upper and lower lobes is unchanged and likely represents scarring or atelectasis. No acute osseous abnormalities identified. IMPRESSION: No acute cardiopulmonary findings. SL: [id number] 02/21/2018 - - Read by: Cordell Astudillo MD Dictated Date/time: 02/21/18 18:07 Electronically Signed by: Cordell Astudillo MD 02/21/18 18:08 FINAL REPORT [facility] CARDIAC ENZYMES Total CK 156 unit/L 12 - 191 02/09/2018 [facility] CARDIAC ENZYMES CK MB 3.6 ng/mL 0.5 - 3.6 02/09/2018 [facility] CARDIAC ENZYMES BNP 21 pg/mL <=100 pg/mL 02/09/2018 [facility] CARDIAC ENZYMES Troponin-I null 0.00 - 0.40 02/09/2018 [facility] CARDIAC ENZYMES CK MB Index 2.3 0.0 - 2.5 02/09/2018 [facility] CHEM PANEL eGFR 70 mL/min/1.73m2 02/09/2018 Result Comment: The eGFR is calculated using the CKD-EPI formula. In most young, healthy individuals the eGFR will be >90 mL/min/1.73m2. The eGFR declines with age. An eGFR of 60-89 may be normal in some populations, particularly the elderly, for whom the CKD-EPI formula has not been extensively validated. Use of the eGFR is not recommended in the following populations: Individuals with unstable creatinine concentrations, including patients and those with serious co-morbid conditions. Patients with extremes in muscle mass or diet. The data above are obtained from the National Kidney Disease Education Program (NKDEP) which additionally recommends that when the eGFR is used in patients with extremes of body mass index for purposes of drug dosing, the eGFR should be multiplied by the estimated BMI. [facility] CHEM PANEL Creatinine Lvl 0.89 mg/dL 0.50 - 1.40 02/09/2018 [facility] CHEM PANEL BUN 12 mg/dL 7 - 22 02/09/2018 [facility] CHEM PANEL A/G Ratio 1.0 0.7 - 1.6 02/09/2018 [facility] CHEM PANEL Globulin 4.0 g/dL 2.7 - 4.2 02/09/2018 [facility] CHEM PANEL B/C Ratio 13 6 - 25 02/09/2018 [facility] CHEM PANEL AGAP 14.2 meq/L 10.0 - 20.0 02/09/2018 [facility] CHEM PANEL Bili Total 0.2 mg/dL 0.2 - 1.3 02/09/2018 [facility] CHEM PANEL Alk Phos 114 unit/L 39 - 136 02/09/2018 [facility] CHEM PANEL AST 18 unit/L 0 - 37 02/09/2018 [facility] CHEM PANEL ALT 34 unit/L 0 - 65 02/09/2018 [facility] CHEM PANEL Total Protein 7.9 g/dL 6.4 - 8.4 02/09/2018 [facility] CHEM PANEL Calcium Lvl 8.8 mg/dL 8.5 - 10.5 02/09/2018 [facility] CHEM PANEL CO2 25 meq/L 24 - 32 02/09/2018 [facility] CHEM PANEL Albumin Lvl 3.9 g/dL 3.5 - 5.0 02/09/2018 [facility] CHEM PANEL Chloride Lvl 92 meq/L 95 - 109 02/09/2018 [facility] CHEM PANEL Potassium Lvl 4.2 meq/L 3.5 - 5.1 02/09/2018 [facility] CHEM PANEL Sodium Lvl 127 meq/L 135 - 145 02/09/2018 [facility] CHEM PANEL Glucose Lvl 131 mg/dL 70 - 99 02/09/2018 [facility] HEMATOLOGY Platelet 370 K/CMM 133 - 450 02/09/2018 [facility] HEMATOLOGY MPV 6.5 fL 7.4 - 10.4 02/09/2018 [facility] RDW 13.1 % 11.5 - 14.5 02/09/2018 [facility] MCHC 33.1 g/dL 32.0 - 36.0 02/09/2018 [facility] WBC 15.8 K/CMM 3.7 - 10.4 02/09/2018 [facility] MCV 90.4 fL 80.0 - 98.0 02/09/2018 [facility] Hct 34.0 % 36.0 - 48.0 02/09/2018 [facility] Hgb 11.3 g/dL 12.0 - 16.0 02/09/2018 [facility] MCH 30.0 pg 27.0 - 31.0 02/09/2018 [facility] RBC 3.76 M/CMM 4.20 - 5.40 02/09/2018 [facility] PTT 29.2 s 22.9 - 35.8 02/09/2018 [facility] INR 0.90 0.85 - 1.17 02/09/2018 [facility] PT 12.1 s 12.0 - 14.7 02/09/2018 [facility] Lymphocytes # 0.7 K/CMM 1.0 - 5.5 02/09/2018 [facility] Segs-Bands # 14.7 K/CMM 1.5 - 8.1 02/09/2018 [facility] Basophils 0.1 % 0.0 - 1.0 02/09/2018 [facility] Monocytes # 0.4 K/CMM 0.0 - 0.8 02/09/2018 [facility] Monocytes 2.6 % 2.0 - 12.0 02/09/2018 [facility] Lymphocytes 4.4 % 20.0 - 40.0 02/09/2018 [facility] Segs 92.9 % 45.0 - 75.0 02/09/2018 [facility] Chest 1view DX Chest 1view DX EXAM: XR CHEST 1 VIEW DATE: 02/08/2018 11:29 PM CDT INDICATION: Shortness of breath. COMPARISON: 05/07/2017. TECHNIQUE: A single AP view of the chest was obtained. FINDINGS: Linear subsegmental atelectasis is noted within the right midlung. No focal consolidation or pneumothorax is identified. The cardiomediastinal silhouette is within normal limits. The costophrenic recesses are sharp and without effusion. No acute osseous abnormality is noted. IMPRESSION: Linear subsegmental atelectasis within the right midlung. SL: [id number] 02/08/2018 - - Read by: Dannie López MD Dictated Date/time: 02/09/18 00:04 Electronically Signed by: Dannie López MD 02/09/18 00:04 FINAL REPORT [facility] Abdomen wo IV contrast CT Abdomen wo IV contrast CT Clinical Indication: - d35.00 adrenal neoplasm. Additional information: Unexplained weight gain over 2 months Comparison: 04/14/2017. TECHNIQUE: Noncontrast helical CT imaging of the abdomen was performed from the lung bases through the upper pelvis. Axial, coronal and sagittal reconstructions are provided. IV contrast: None GI contrast: Yes Exam DLP: 437 mGy-cm FINDINGS: This examination is limited for the evaluation of solid organs and vascular structures due to withheld intravenous contrast. LOWER CHEST: The visualized lung bases are clear. LIVER: Unremarkable. GALLBLADDER/BILIARY: Cholecystectomy PANCREAS: Unremarkable. SPLEEN: Unremarkable. ADRENALS: 1.4 x 0.8 cm left adrenal nodule inferiorly (series 2 image 37) with attenuation -7 HU, in keeping with a lipid rich adenoma KIDNEYS: Punctate 2 mm nonobstructing right renal calculus. No hydronephrosis or perinephric stranding. STOMACH: Small hiatal hernia. BOWEL: Visualized small bowel and colon appear unremarkable, without focal wall thickening or evidence of obstruction. Surgical clips in the right lower quadrant. PERITONEUM: No upper abdominal ascites or free air. LYMPH NODES: Unremarkable. VASCULAR: There is no aortic aneurysm. Redemonstrated severe aortic atherosclerotic disease, status post aortoiliac bypass. OSSEOUS STRUCTURES: No acute abnormality seen. Unchanged mild superior endplate depressions at T11 and L1. SOFT TISSUES: Baclofen pump in the left lower quadrant anterior soft tissues. IMPRESSION: 1. No acute abnormality identified on noncontrast CT of the abdomen. No significant interval change from 04/14/2017. 2. 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 3. Additional unchanged findings: * Severe aortic atherosclerotic disease, status post aortoiliac bypass grafts. * Small hiatal hernia * Nonobstructing 2 mm right renal stone SL: [id number] 08/15/2017 - - Read by: Jose Carlos Cespedes MD Dictated Date/time: 08/15/17 09:04 Electronically Signed by: Jose Carlos Cespedes MD 08/15/17 09:15 FINAL REPORT [facility] CARDIAC ENZYMES Total CK 185 unit/L 12 - 191 05/07/2017 [facility] CARDIAC ENZYMES Troponin-I null 0.00 - 0.40 05/07/2017 [facility] CARDIAC ENZYMES CK MB 3.6 ng/mL 0.5 - 3.6 05/07/2017 [facility] CARDIAC ENZYMES BNP 72 pg/mL <=100 pg/mL 05/07/2017 [facility] CARDIAC ENZYMES CK MB Index 1.9 0.0 - 2.5 05/07/2017 [facility] CHEM PANEL Magnesium Lvl 1.9 mg/dL 1.8 - 2.4 05/07/2017 [facility] CHEM PANEL eGFR 93 mL/min/1.73m2 05/07/2017 Result Comment: The eGFR is calculated using the CKD-EPI formula. In most young, healthy individuals the eGFR will be >90 mL/min/1.73m2. The eGFR declines with age. An eGFR of 60-89 may be normal in some populations, particularly the elderly, for whom the CKD-EPI formula has not been extensively validated. Use of the eGFR is not recommended in the following populations: Individuals with unstable creatinine concentrations, including patients and those with serious co-morbid conditions. Patients with extremes in muscle mass or diet. The data above are obtained from the National Kidney Disease Education Program (NKDEP) which additionally recommends that when the eGFR is used in patients with extremes of body mass index for purposes of drug dosing, the eGFR should be multiplied by the estimated BMI. [facility] CHEM PANEL Total Protein 7.5 g/dL 6.4 - 8.4 05/07/2017 [facility] CHEM PANEL Albumin Lvl 4.1 g/dL 3.5 - 5.0 05/07/2017 [facility] CHEM PANEL CO2 28 meq/L 24 - 32 05/07/2017 [facility] CHEM PANEL B/C Ratio 11 6 - 25 05/07/2017 [facility] CHEM PANEL AGAP 12.0 meq/L 10.0 - 20.0 05/07/2017 [facility] CHEM PANEL Bili Total 0.4 mg/dL 0.2 - 1.3 05/07/2017 [facility] CHEM PANEL ALT 36 unit/L 0 - 65 05/07/2017 [facility] CHEM PANEL AST 24 unit/L 0 - 37 05/07/2017 [facility] CHEM PANEL Alk Phos 121 unit/L 39 - 136 05/07/2017 [facility] CHEM PANEL Calcium Lvl 8.7 mg/dL 8.5 - 10.5 05/07/2017 [facility] CHEM PANEL A/G Ratio 1.2 0.7 - 1.6 05/07/2017 [facility] CHEM PANEL Globulin 3.4 g/dL 2.7 - 4.2 05/07/2017 [facility] CHEM PANEL Creatinine Lvl 0.71 mg/dL 0.50 - 1.40 05/07/2017 [facility] CHEM PANEL Glucose Lvl 96 mg/dL 70 - 99 05/07/2017 [facility] CHEM PANEL BUN 8 mg/dL 7 - 22 05/07/2017 [facility] CHEM PANEL Chloride Lvl 96 meq/L 95 - 109 05/07/2017 [facility] CHEM PANEL Potassium Lvl 4.0 meq/L 3.5 - 5.1 05/07/2017 [facility] CHEM PANEL Sodium Lvl 132 meq/L 135 - 145 05/07/2017 [facility] HEMATOLOGY Hct 34.1 % 36.0 - 48.0 05/07/2017 [facility] HEMATOLOGY Hgb 11.7 g/dL 12.0 - 16.0 05/07/2017 [facility] HEMATOLOGY RBC 3.77 M/CMM 4.20 - 5.40 05/07/2017 [facility] HEMATOLOGY WBC 7.2 K/CMM 3.7 - 10.4 05/07/2017 [facility] HEMATOLOGY MCV 90.3 fL 80.0 - 98.0 05/07/2017 [facility] HEMATOLOGY Platelet 442 K/CMM 133 - 450 05/07/2017 [facility] HEMATOLOGY RDW 13.6 % 11.5 - 14.5 05/07/2017 [facility] HEMATOLOGY MCHC 34.4 g/dL 32.0 - 36.0 05/07/2017 [facility] HEMATOLOGY MCH 31.1 pg 27.0 - 31.0 05/07/2017 [facility] HEMATOLOGY MPV 6.4 fL 7.4 - 10.4 05/07/2017 [facility] HEMATOLOGY Basophils 0.6 % 0.0 - 1.0 05/07/2017 [facility] HEMATOLOGY Eosinophils 1.1 % 0.0 - 4.0 05/07/2017 [facility] HEMATOLOGY Eosinophils # 0.1 K/CMM 0.0 - 0.5 05/07/2017 [facility] HEMATOLOGY Monocytes 6.3 % 2.0 - 12.0 05/07/2017 [facility] HEMATOLOGY Lymphocytes 12.3 % 20.0 - 40.0 05/07/2017 [facility] HEMATOLOGY Segs 79.7 % 45.0 - 75.0 05/07/2017 [facility] HEMATOLOGY Monocytes # 0.5 K/CMM 0.0 - 0.8 05/07/2017 [facility] HEMATOLOGY Lymphocytes # 0.9 K/CMM 1.0 - 5.5 05/07/2017 [facility] HEMATOLOGY Segs-Bands # 5.8 K/CMM 1.5 - 8.1 05/07/2017 [facility] URINE AND STOOL UA Turbidity Clear (05/07/17 3:58 AM) Clear 05/07/2017 [facility] URINE AND STOOL UA Spec Grav 1.002 <=1.030 05/07/2017 [facility] URINE AND STOOL UA pH 7.0 5.0 - 8.0 05/07/2017 [facility] URINE AND STOOL UA Glucose Negative mg/dL Negative mg/dL 05/07/2017 [facility] URINE AND STOOL UA Protein Negative mg/dL Negative mg/dL 05/07/2017 [facility] URINE AND STOOL UA Color Light Yellow *NA* (05/07/17 3:58 AM) Yellow 05/07/2017 [facility] URINE AND STOOL UA Leuk Est Small *ABN* (05/07/17 3:58 AM) Negative 05/07/2017 [facility] URINE AND STOOL UA Nitrite Negative (05/07/17 3:58 AM) Negative 05/07/2017 [facility] URINE AND STOOL UA Ketones Negative mg/dL Negative mg/dL 05/07/2017 [facility] URINE AND STOOL UA Bili Negative *NA* (05/07/17 3:58 AM) Negative 05/07/2017 [facility] URINE AND STOOL UA Blood Negative (05/07/17 3:58 AM) Negative 05/07/2017 [facility] URINE AND STOOL UA Bacteria Occasional /HPF None Seen /HPF 05/07/2017 [facility] URINE AND STOOL UA Urobilinogen <=1.0 mg/dL 0.1 - 1.0 05/07/2017 [facility] URINE AND STOOL UA Sq Epi Occasional /LPF Few /LPF 05/07/2017 [facility] URINE AND STOOL UA WBC 2 /HPF 0 - 5 05/07/2017 [facility] URINE AND STOOL UA RBC null 0 - 2 05/07/2017 [facility] Chest 1view DX Chest 1view DX Clinical Indication: - sob, off home o2; Comparison: 04/14/2017 FINDINGS: The portable AP single view radiograph provided for review. The exam demonstrates limited decreased lung volumes without interstitial or airspace opacities, pleural effusions or pneumothorax. The heart size and pulmonary vasculature are normal. The trachea is midline. There are no clinically significant osseous abnormalities noted. IMPRESSION: No chest radiographic evidence of acute cardiopulmonary disease. SL: [id number] 05/07/2017 - - Read by: Aries Morocho MD Dictated Date/time: 05/07/17 04:29 Electronically Signed by: Aries Morocho MD 05/07/17 04:30 FINAL REPORT [facility] ELECTROLYTES AGAP 12.7 meq/L 10.0 - 20.0 04/16/2017 [facility] ELECTROLYTES CO2 26 meq/L 24 - 32 04/16/2017 [facility] ELECTROLYTES Chloride Lvl 90 meq/L 95 - 109 04/16/2017 [facility] ELECTROLYTES Sodium Lvl 125 meq/L 135 - 145 04/16/2017 [facility] ELECTROLYTES Potassium Lvl 3.7 meq/L 3.5 - 5.1 04/16/2017 [facility] ELECTROLYTES Sodium Lvl 126 meq/L 135 - 145 04/16/2017 [facility] ELECTROLYTES CO2 27 meq/L 24 - 32 04/16/2017 [facility] ELECTROLYTES Potassium Lvl 3.3 meq/L 3.5 - 5.1 04/16/2017 [facility] ELECTROLYTES AGAP 12.3 meq/L 10.0 - 20.0 04/16/2017 [facility] ELECTROLYTES Chloride Lvl 90 meq/L 95 - 109 04/16/2017 [facility] ELECTROLYTES Sodium Lvl 126 meq/L 135 - 145 04/16/2017 [facility] ELECTROLYTES Chloride Lvl 93 meq/L 95 - 109 04/16/2017 [facility] ELECTROLYTES AGAP 13.7 meq/L 10.0 - 20.0 04/16/2017 [facility] ELECTROLYTES Potassium Lvl 3.7 meq/L 3.5 - 5.1 04/16/2017 [facility] ELECTROLYTES CO2 24 meq/L 24 - 32 04/16/2017 [facility] CHEM PANEL eGFR 101 mL/min/1.73m2 04/16/2017 Result Comment: The eGFR is calculated using the CKD-EPI formula. In most young, healthy individuals the eGFR will be >90 mL/min/1.73m2. The eGFR declines with age. An eGFR of 60-89 may be normal in some populations, particularly the elderly, for whom the CKD-EPI formula has not been extensively validated. Use of the eGFR is not recommended in the following populations: Individuals with unstable creatinine concentrations, including patients and those with serious co-morbid conditions. Patients with extremes in muscle mass or diet. The data above are obtained from the National Kidney Disease Education Program (NKDEP) which additionally recommends that when the eGFR is used in patients with extremes of body mass index for purposes of drug dosing, the eGFR should be multiplied by the estimated BMI. [facility] CHEM PANEL Creatinine Lvl 0.57 mg/dL 0.50 - 1.40 04/16/2017 [facility] CHEM PANEL Calcium Lvl 8.0 mg/dL 8.5 - 10.5 04/16/2017 [facility] CHEM PANEL Glucose Lvl 90 mg/dL 70 - 99 04/16/2017 [facility] CHEM PANEL BUN 8 mg/dL 7 - 22 04/16/2017 [facility] CHEM PANEL Magnesium Lvl 1.8 mg/dL 1.8 - 2.4 04/16/2017 [facility] Lymphocytes # 1.1 K/CMM 1.0 - 5.5 04/16/2017 [facility] HEMATOLOGY Monocytes # 0.9 K/CMM 0.0 - 0.8 04/16/2017 [facility] Basophils 0.2 % 0.0 - 1.0 04/16/2017 [facility] Segs-Bands # 9.4 K/CMM 1.5 - 8.1 04/16/2017 [facility] Eosinophils 0.3 % 0.0 - 4.0 04/16/2017 [facility] Monocytes 8.2 % 2.0 - 12.0 04/16/2017 [facility] Segs 81.9 % 45.0 - 75.0 04/16/2017 [facility] Lymphocytes 9.4 % 20.0 - 40.0 04/16/2017 [facility] MCH 30.0 pg 27.0 - 31.0 04/16/2017 [facility] MPV 6.8 fL 7.4 - 10.4 04/16/2017 [facility] MCHC 33.7 g/dL 32.0 - 36.0 04/16/2017 [facility] HEMATOLOGY RDW 12.9 % 11.5 - 14.5 04/16/2017 [facility] HEMATOLOGY Platelet 347 K/CMM 133 - 450 04/16/2017 [facility] HEMATOLOGY Hct 37.1 % 36.0 - 48.0 04/16/2017 [facility] MCV 89.0 fL 80.0 - 98.0 04/16/2017 [facility] RBC 4.16 M/CMM 4.20 - 5.40 04/16/2017 [facility] HEMATOLOGY Hgb 12.5 g/dL 12.0 - 16.0 04/16/2017 [facility] HEMATOLOGY WBC 11.4 K/CMM 3.7 - 10.4 04/16/2017 [facility] CHEM PANEL eGFR 99 mL/min/1.73m2 04/15/2017 Result Comment: The eGFR is calculated using the CKD-EPI formula. In most young, healthy individuals the eGFR will be >90 mL/min/1.73m2. The eGFR declines with age. An eGFR of 60-89 may be normal in some populations, particularly the elderly, for whom the CKD-EPI formula has not been extensively validated. Use of the eGFR is not recommended in the following populations: Individuals with unstable creatinine concentrations, including patients and those with serious co-morbid conditions. Patients with extremes in muscle mass or diet. The data above are obtained from the National Kidney Disease Education Program (NKDEP) which additionally recommends that when the eGFR is used in patients with extremes of body mass index for purposes of drug dosing, the eGFR should be multiplied by the estimated BMI. [facility] CHEM PANEL Calcium Lvl 8.6 mg/dL 8.5 - 10.5 04/15/2017 [facility] CHEM PANEL Glucose Lvl 115 mg/dL 70 - 99 04/15/2017 [facility] CHEM PANEL Creatinine Lvl 0.60 mg/dL 0.50 - 1.40 04/15/2017 [facility] CHEM PANEL BUN 7 mg/dL 7 - 22 04/15/2017 [facility] URINE CHEM U Sodium 67 meq/L 04/15/2017 [facility] URINE CHEM U Chloride 85 meq/L 04/15/2017 [facility] URINE CHEM U Osmolality 308 mOsm/kg 300 - 800 04/15/2017 [facility] CARDIAC ENZYMES Total CK 267 unit/L 12 - 191 04/15/2017 [facility] CARDIAC ENZYMES CK MB Index 2.0 0.0 - 2.5 04/15/2017 [facility] CARDIAC ENZYMES CK MB 5.3 ng/mL 0.5 - 3.6 04/15/2017 [facility] CHEM PANEL Osmolality 248 mOsm/kg 280 - 300 04/15/2017 [facility] CHEM PANEL Phosphorus 3.4 mg/dL 2.5 - 4.5 04/15/2017 [facility] CHEM PANEL Magnesium Lvl 1.8 mg/dL 1.8 - 2.4 04/15/2017 [facility] CHEM PANEL eGFR 99 mL/min/1.73m2 04/15/2017 Result Comment: The eGFR is calculated using the CKD-EPI formula. In most young, healthy individuals the eGFR will be >90 mL/min/1.73m2. The eGFR declines with age. An eGFR of 60-89 may be normal in some populations, particularly the elderly, for whom the CKD-EPI formula has not been extensively validated. Use of the eGFR is not recommended in the following populations: Individuals with unstable creatinine concentrations, including patients and those with serious co-morbid conditions. Patients with extremes in muscle mass or diet. The data above are obtained from the National Kidney Disease Education Program (NKDEP) which additionally recommends that when the eGFR is used in patients with extremes of body mass index for purposes of drug dosing, the eGFR should be multiplied by the estimated BMI. [facility] CHEM PANEL Bili Total 0.5 mg/dL 0.2 - 1.3 04/15/2017 [facility] CHEM PANEL AST 27 unit/L 0 - 37 04/15/2017 [facility] CHEM PANEL Alk Phos 133 unit/L 39 - 136 04/15/2017 [facility] CHEM PANEL Albumin Lvl 4.4 g/dL 3.5 - 5.0 04/15/2017 [facility] CHEM PANEL Globulin 3.6 g/dL 2.7 - 4.2 04/15/2017 [facility] CHEM PANEL A/G Ratio 1.2 0.7 - 1.6 04/15/2017 [facility] CHEM PANEL ALT 28 unit/L 0 - 65 04/15/2017 [facility] CHEM PANEL Creatinine Lvl 0.62 mg/dL 0.50 - 1.40 04/15/2017 [facility] CHEM PANEL Glucose Lvl 112 mg/dL 70 - 99 04/15/2017 [facility] CHEM PANEL BUN 9 mg/dL 7 - 22 04/15/2017 [facility] CHEM PANEL B/C Ratio 15 6 - 25 04/15/2017 [facility] CHEM PANEL Total Protein 8.0 g/dL 6.4 - 8.4 04/15/2017 [facility] CHEM PANEL Calcium Lvl 9.7 mg/dL 8.5 - 10.5 04/15/2017 [facility] ENDOCRINOLOGY Cortisol 37.1 ug/dl 04/15/2017 [facility] HEMATOLOGY MCHC 35.3 g/dL 32.0 - 36.0 04/15/2017 [facility] HEMATOLOGY RDW 12.6 % 11.5 - 14.5 04/15/2017 [facility] HEMATOLOGY Platelet 372 K/CMM 133 - 450 04/15/2017 [facility] HEMATOLOGY MPV 6.7 fL 7.4 - 10.4 04/15/2017 [facility] HEMATOLOGY Hct 40.3 % 36.0 - 48.0 04/15/2017 [facility] HEMATOLOGY RBC 4.69 M/CMM 4.20 - 5.40 04/15/2017 [facility] HEMATOLOGY MCV 85.9 fL 80.0 - 98.0 04/15/2017 [facility] HEMATOLOGY Hgb 14.2 g/dL 12.0 - 16.0 04/15/2017 [facility] MCH 30.3 pg 27.0 - 31.0 04/15/2017 [facility] HEMATOLOGY WBC 14.1 K/CMM 3.7 - 10.4 04/15/2017 [facility] LIPIDS LDL (Calculated) 61 mg/dL <=99 mg/dL 04/15/2017 [facility] LIPIDS VLDL 9 04/15/2017 [facility] LIPIDS Trig 46 mg/dL <=149 mg/dL 04/15/2017 [facility] LIPIDS HDL 74 mg/dL >=61 mg/dL 04/15/2017 [facility] LIPIDS CHD Risk 1.95 3.90 - 5.80 04/15/2017 [facility] LIPIDS Chol 144 mg/dL <=199 mg/dL 04/15/2017 [facility] URINE AND STOOL UA Color Light Yellow *NA* (04/14/17 11:14 PM) Yellow 04/15/2017 [facility] URINE AND STOOL UA Turbidity Clear (04/14/17 11:14 PM) Clear 04/15/2017 [facility] URINE AND STOOL UA Spec Grav 1.009 <=1.030 04/15/2017 [facility] URINE AND STOOL UA Glucose Negative mg/dL Negative mg/dL 04/15/2017 [facility] URINE AND STOOL UA Ketones Negative mg/dL Negative mg/dL 04/15/2017 [facility] URINE AND STOOL UA Bili Negative *NA* (04/14/17 11:14 PM) Negative 04/15/2017 [facility] URINE AND STOOL UA pH 7.0 5.0 - 8.0 04/15/2017 [facility] URINE AND STOOL UA Protein Negative mg/dL Negative mg/dL 04/15/2017 [facility] URINE AND STOOL UA Leuk Est Negative (04/14/17 11:14 PM) Negative 04/15/2017 [facility] URINE AND STOOL UA Sq Epi Occasional /LPF Few /LPF 04/15/2017 [facility] URINE AND STOOL UA Blood Negative (04/14/17 11:14 PM) Negative 04/15/2017 [facility] URINE AND STOOL UA Nitrite Negative (04/14/17 11:14 PM) Negative 04/15/2017 [facility] URINE AND STOOL UA Urobilinogen <=1.0 mg/dL 0.1 - 1.0 04/15/2017 [facility] URINE AND STOOL UA WBC 1 /HPF 0 - 5 04/15/2017 [facility] URINE AND STOOL UA RBC 1 /HPF 0 - 2 04/15/2017 [facility] URINE AND STOOL UA Hyal Cast 1 /LPF 0 - 2 04/15/2017 [facility] URINE AND STOOL UA Mucus Few /LPF None Seen /LPF 04/15/2017 [facility] URINE AND STOOL UA Amorph Sangeetha Occasional /HPF None Seen /HPF 04/15/2017 [facility] CARDIAC ENZYMES CK MB Index 1.8 0.0 - 2.5 04/15/2017 [facility] CARDIAC ENZYMES BNP 10 pg/mL <=100 pg/mL 04/15/2017 [facility] CARDIAC ENZYMES Total CK 290 unit/L 12 - 191 04/15/2017 [facility] CARDIAC ENZYMES CK MB 5.1 ng/mL 0.5 - 3.6 04/15/2017 [facility] CARDIAC ENZYMES Troponin-I null 0.00 - 0.40 04/15/2017 [facility] CHEM PANEL Osmolality 244 mOsm/kg 280 - 300 04/15/2017 [facility] CHEM PANEL Globulin 4.0 g/dL 2.7 - 4.2 04/15/2017 [facility] CHEM PANEL A/G Ratio 1.1 0.7 - 1.6 04/15/2017 [facility] CHEM PANEL Albumin Lvl 4.4 g/dL 3.5 - 5.0 04/15/2017 [facility] CHEM PANEL ALT 29 unit/L 0 - 65 04/15/2017 [facility] CHEM PANEL Bili Total 0.3 mg/dL 0.2 - 1.3 04/15/2017 [facility] CHEM PANEL AST 27 unit/L 0 - 37 04/15/2017 [facility] CHEM PANEL Alk Phos 127 unit/L 39 - 136 04/15/2017 [facility] CHEM PANEL B/C Ratio 12 6 - 25 04/15/2017 [facility] CHEM PANEL Total Protein 8.4 g/dL 6.4 - 8.4 04/15/2017 [facility] HEMATOLOGY Monocytes # 0.9 K/CMM 0.0 - 0.8 04/15/2017 [facility] HEMATOLOGY Eosinophils # 0.2 K/CMM 0.0 - 0.5 04/15/2017 [facility] HEMATOLOGY Segs-Bands # 13.8 K/CMM 1.5 - 8.1 04/15/2017 [facility] HEMATOLOGY Lymphocytes # 1.3 K/CMM 1.0 - 5.5 04/15/2017 [facility] HEMATOLOGY Eosinophils 1.0 % 0.0 - 4.0 04/15/2017 [facility] HEMATOLOGY Monocytes 5.3 % 2.0 - 12.0 04/15/2017 [facility] HEMATOLOGY Basophils 0.3 % 0.0 - 1.0 04/15/2017 [facility] HEMATOLOGY Segs 85.6 % 45.0 - 75.0 04/15/2017 [facility] Lymphocytes 7.8 % 20.0 - 40.0 04/15/2017 [facility] PTT 35.7 s 22.9 - 35.8 04/15/2017 [facility] HEMATOLOGY INR 0.91 0.85 - 1.17 04/15/2017 [facility] HEMATOLOGY PT 12.5 s 12.0 - 14.7 04/15/2017 [facility] HEMATOLOGY MPV 6.4 fL 7.4 - 10.4 04/15/2017 [facility] HEMATOLOGY Platelet 353 K/CMM 133 - 450 04/15/2017 [facility] HEMATOLOGY RBC 4.55 M/CMM 4.20 - 5.40 04/15/2017 [facility] HEMATOLOGY Hct 39.1 % 36.0 - 48.0 04/15/2017 [facility] MCH 30.2 pg 27.0 - 31.0 04/15/2017 [facility] HEMATOLOGY MCV 85.9 fL 80.0 - 98.0 04/15/2017 [facility] HEMATOLOGY Hgb 13.7 g/dL 12.0 - 16.0 04/15/2017 [facility] HEMATOLOGY MCHC 35.2 g/dL 32.0 - 36.0 04/15/2017 [facility] HEMATOLOGY RDW 12.7 % 11.5 - 14.5 04/15/2017 [facility] WBC 16.1 K/CMM 3.7 - 10.4 04/15/2017 [facility] URINE CHEM U Osmolality 304 mOsm/kg 300 - 800 04/15/2017 [facility] URINE CHEM U Sodium 54 meq/L 04/15/2017 [facility] Brain wo contrast CT Brain wo contrast CT I have reviewed this examination and concur with the interpretation. Clinical Indication: Syncope Comparison: MR examination on 2008 TECHNIQUE: CT images were obtained from the foramen magnum to the vertex without the use of intravenous contrast on a multidetector CT. Coronal and sagittal reconstructions were obtained. CT radiation dose DLP: 1377.46 mGy-cm FINDINGS: BRAIN PARENCHYMA: Normal jean baptiste-white interfaces, sulci and gyri. No focal mass lesions on this noncontrast head CT. No mass effect, midline shift or edema. No intra-axial or extra-axial fluid collections, intraventricular or intraparenchymal hemorrhage. Pineal, brainstem, cerebellum and skull base regions appear unremarkable. Empty sella noted. VENTRICLES: Lateral ventricles, third and fourth ventricles appear unremarkable. Basilar cisterns are normal. ORBITS, MASTOIDS AND PARANASAL SINUSES: -Visualized orbits/retro-orbital spaces are within normal limits. - The paranasal sinuses are unremarkable. The mastoid air cells are clear. SKULL: No acute osseous abnormalities. No focal or asymmetric scalp swelling. If there is further concern for intracranial pathology or acute stroke, MRI of the brain may be performed for complete assessment. IMPRESSION: 1. No acute intracranial abnormality. No mass, hemorrhage, or subacute stroke. SL: [id number] 04/14/2017 - - Read by: Tru Sidhu MD Dictated Date/time: 04/15/17 00:10 Electronically Signed by: Tru Sidhu MD 04/15/17 00:12 FINAL REPORT - - Read by: Lashaun Parry MD Dictated Date/time: 04/15/17 00:02 Electronically Signed by: Lashaun Parry MD 04/15/17 00:09 FINAL REPORT [facility] Abdomen/Pelvis wo IV contrast CT Abdomen/Pelvis wo IV contrast CT Clinical Indication: Vomiting, abdominal pain. Comparison: 08/04/2012 TECHNIQUE: Sequential trans-axial images were obtained with a multi-detector helical CT without administration of iodinated contrast. Coronal and sagittal reconstructions were obtained. No oral contrast material was used for the exam. CT Radiation Dose DLP 677.52 mGy-cm FINDINGS: This examination is limited for the evaluation of solid organs and vascular structures due to lack of intravenous contrast. This limits assessment for inflammatory, infectious, neoplastic, vascular, and traumatic pathologies. CHEST BASE: Scattered areas of mild subsegmental/dependent atelectasis. Suspected subtle fibrotic changes. No focal infiltrate. No effusion or pneumothorax. Heart size normal. No pericardial effusion. LIVER: Size within normal limits. Normal contours. GALLBLADDER: Surgically removed. No abnormal findings in post-cholecystectomy bed PANCREAS: No surrounding inflammation. SPLEEN: Normal size. No obvious lesions. ADRENAL GLANDS: Normal contour bilaterally. No detected lesions. KIDNEYS/COLLECTING SYSTEMS: Right kidney: Normal size and contour. Punctate 1 mm calculus. Right ureter: No hydronephrosis or obstructing calcified stone. Left kidney: Normal size and contour. No calcified stone. Left ureter: No hydronephrosis or obstructing calcified stone. Bladder: Distends normally. No detected bladder stones.. BOWEL: Limited assessment without oral contrast. Stomach: Small sliding hiatal hernia; otherwise unremarkable. Small bowel: No obstructive pattern. No suspected inflammation. Appendix: Not detected. No pericecal bowel inflammation or right lower quadrant free fluid. Large bowel: Moderate amount of proximal and mid colonic stool retention. No inflammatory changes. PERITONEUM/RETROPERITONEUM: No organized fluid collection. No free air. No pathologically enlarged lymph nodes are seen in the abdomen, retroperitoneum, or pelvis. Severe atherosclerosis again seen within the infrarenal abdominal aorta and proximal bilateral external iliac arteries, similar when compared to prior CT examination in 2012 MUSCULOSKELETAL: Spinal stimulator lead seen within the subcutaneous tissues in the left ventral abdomen. No complicating features identified. Lead enters the canal at the L2-L3 level and terminates at likely the T9-T10 level. No acute fracture or dislocation. Chronic compression deformity at L1. No lytic or blastic lesion. Surrounding subcutaneous tissues within normal limits. IMPRESSION: 1. No acute abnormality identified in the abdomen or pelvis on this examination without intravenous contrast. 2. Moderate proximal and mid colonic fecal retention. 3. Suspected mild fibrotic changes in the lung bases. 4. Small sliding hiatal hernia. 5. Redemonstration of severe atherosclerosis of the infrarenal abdominal aorta and external iliac artery branches. Findings appear similar to study from 2012. SL: [id number] 04/14/2017 - - Read by: Lashaun Parry MD Dictated Date/time: 04/15/17 00:15 Electronically Signed by: Lashaun Parry MD 04/15/17 00:25 FINAL REPORT [facility] Chest 1view DX Chest 1view DX Study: Chest 1view DX 04/14/2017 10:26 PM CDT Ordering Physician: Gaurav Ballesteros MD Clinical Indication: 61-year-old with syncopal episode at the grocery store. Comparison: September 25, 2016 FINDINGS: The lungs are adequately expanded and clear. There is no evidence for alveolar consolidation, pleural effusion, pulmonary edema or pneumothorax. The cardiac silhouette is within normal limits. There is mild tortuosity of the thoracic aorta. No acute osseous abnormality is seen. Soft tissues are unremarkable. IMPRESSION: No acute cardiopulmonary disease. Previously noted lower lobe infiltrates have resolved. SL: [id number] 04/14/2017 - - Read by: Monika Moore MD Dictated Date/time: 04/14/17 23:04 Electronically Signed by: Monika Moore MD 04/14/17 23:05 FINAL REPORT [facility] CHEM PANEL Magnesium Lvl 1.2 mg/dL 1.8 - 2.4 09/26/2016 [facility] CHEM PANEL eGFR 107 mL/min/1.73m2 09/26/2016 Result Comment: The eGFR is calculated using the CKD-EPI formula. In most young, healthy individuals the eGFR will be >90 mL/min/1.73m2. The eGFR declines with age. An eGFR of 60-89 may be normal in some populations, particularly the elderly, for whom the CKD-EPI formula has not been extensively validated. Use of the eGFR is not recommended in the following populations: Individuals with unstable creatinine concentrations, including patients and those with serious co-morbid conditions. Patients with extremes in muscle mass or diet. The data above are obtained from the National Kidney Disease Education Program (NKDEP) which additionally recommends that when the eGFR is used in patients with extremes of body mass index for purposes of drug dosing, the eGFR should be multiplied by the estimated BMI. [facility] CHEM PANEL Glucose Lvl 187 mg/dL 70 - 99 09/26/2016 [facility] CHEM PANEL Creatinine Lvl 0.49 mg/dL 0.50 - 1.40 09/26/2016 [facility] CHEM PANEL BUN 6 mg/dL 7 - 22 09/26/2016 [facility] CHEM PANEL Calcium Lvl 8.0 mg/dL 8.5 - 10.5 09/26/2016 [facility] CHEM PANEL AGAP 12.4 meq/L 10.0 - 20.0 09/26/2016 [facility] CHEM PANEL CO2 25 meq/L 24 - 32 09/26/2016 [facility] CHEM PANEL Chloride Lvl 101 meq/L 95 - 109 09/26/2016 [facility] CHEM PANEL Potassium Lvl 4.4 meq/L 3.5 - 5.1 09/26/2016 [facility] CHEM PANEL Sodium Lvl 134 meq/L 135 - 145 09/26/2016 [facility] CARDIAC ENZYMES CK MB Index 2.6 0.0 - 2.5 09/26/2016 [facility] CARDIAC ENZYMES proBNP 1376 pg/mL 0 - 125 09/26/2016 [facility] CARDIAC ENZYMES CK MB 3.5 ng/mL 0.5 - 3.6 09/26/2016 [facility] CARDIAC ENZYMES Total CK 137 unit/L 12 - 191 09/26/2016 [facility] CARDIAC ENZYMES Troponin-I null 0.00 - 0.40 09/26/2016 [facility] CHEM PANEL eGFR 101 mL/min/1.73m2 09/26/2016 Result Comment: The eGFR is calculated using the CKD-EPI formula. In most young, healthy individuals the eGFR will be >90 mL/min/1.73m2. The eGFR declines with age. An eGFR of 60-89 may be normal in some populations, particularly the elderly, for whom the CKD-EPI formula has not been extensively validated. Use of the eGFR is not recommended in the following populations: Individuals with unstable creatinine concentrations, including patients and those with serious co-morbid conditions. Patients with extremes in muscle mass or diet. The data above are obtained from the National Kidney Disease Education Program (NKDEP) which additionally recommends that when the eGFR is used in patients with extremes of body mass index for purposes of drug dosing, the eGFR should be multiplied by the estimated BMI. [facility] CHEM PANEL AST 21 unit/L 0 - 37 09/26/2016 [facility] CHEM PANEL Total Protein 8.0 g/dL 6.4 - 8.4 09/26/2016 [facility] CHEM PANEL A/G Ratio 0.6 0.7 - 1.6 09/26/2016 [facility] CHEM PANEL Globulin 4.9 g/dL 2.7 - 4.2 09/26/2016 [facility] CHEM PANEL B/C Ratio 7 6 - 25 09/26/2016 [facility] CHEM PANEL AGAP 10.6 meq/L 10.0 - 20.0 09/26/2016 [facility] CHEM PANEL Calcium Lvl 9.3 mg/dL 8.5 - 10.5 09/26/2016 [facility] CHEM PANEL CO2 30 meq/L 24 - 32 09/26/2016 [facility] CHEM PANEL Bili Total 0.5 mg/dL 0.2 - 1.3 09/26/2016 [facility] CHEM PANEL Creatinine Lvl 0.58 mg/dL 0.50 - 1.40 09/26/2016 [facility] CHEM PANEL BUN 4 mg/dL 7 - 22 09/26/2016 [facility] CHEM PANEL Chloride Lvl 96 meq/L 95 - 109 09/26/2016 [facility] CHEM PANEL Potassium Lvl 2.6 meq/L 3.5 - 5.1 09/26/2016 Result Comment: Critical Result(s) called to Cole Ruiz RN at 09/25/2016 19:19 by [email or web address]. Read back OK. [facility] CHEM PANEL Sodium Lvl 134 meq/L 135 - 145 09/26/2016 [facility] CHEM PANEL Glucose Lvl 131 mg/dL 70 - 99 09/26/2016 [facility] CHEM PANEL Albumin Lvl 3.1 g/dL 3.5 - 5.0 09/26/2016 [facility] CHEM PANEL ALT 26 unit/L 0 - 65 09/26/2016 [facility] CHEM PANEL Alk Phos 117 unit/L 39 - 136 09/26/2016 [facility] HEMATOLOGY Segs-Bands # 9.6 K/CMM 1.5 - 8.1 09/26/2016 [facility] HEMATOLOGY Basophils 0.2 % 0.0 - 1.0 09/26/2016 [facility] HEMATOLOGY Eosinophils 1.7 % 0.0 - 4.0 09/26/2016 [facility] HEMATOLOGY Monocytes # 0.4 K/CMM 0.0 - 0.8 09/26/2016 [facility] HEMATOLOGY Lymphocytes # 1.1 K/CMM 1.0 - 5.5 09/26/2016 [facility] Eosinophils # 0.2 K/CMM 0.0 - 0.5 09/26/2016 [facility] Lymphocytes 9.6 % 20.0 - 40.0 09/26/2016 [facility] Monocytes 3.3 % 2.0 - 12.0 09/26/2016 [facility] Segs 85.2 % 45.0 - 75.0 09/26/2016 [facility] Plt Morph Normal (09/25/16 6:46 PM) 09/26/2016 [facility] RBC Morph See Note 1 (09/25/16 6:46 PM) 09/26/2016 Result Comment: RBC Agglutination Present [facility] WBC 11.3 K/CMM 3.7 - 10.4 09/26/2016 [facility] RBC 3.21 M/CMM 4.20 - 5.40 09/26/2016 [facility] MCV 97.9 fL 80.0 - 98.0 09/26/2016 [facility] Hgb 12.4 g/dL 12.0 - 16.0 09/26/2016 [facility] Hct 31.5 % 36.0 - 48.0 09/26/2016 [facility] RDW 13.0 % 11.5 - 14.5 09/26/2016 [facility] MCH 38.5 pg 27.0 - 31.0 09/26/2016 [facility] Platelet 601 K/CMM 133 - 450 09/26/2016 [facility] MCHC 39.3 g/dL 32.0 - 36.0 09/26/2016 [facility] MPV 7.0 fL 7.4 - 10.4 09/26/2016 [facility] D-Dimer 1.22 ug/mL FEU 09/26/2016 [facility] Ext Lower Venous Doppler Bilat US Ext Lower Venous Doppler Bilat US Clinical Indication: Bilateral leg swelling. Embolism/occlusion lower extremity. Comparison: None. TECHNIQUE: Sonographic evaluation of the bilateral lower extremity veins was performed using high resolution B-mode imaging, along with pulse and color Doppler imaging. FINDINGS: Right lower extremity: The common femoral vein, superficial femoral vein, popliteal vein and visualized posterior tibial/calf veins are patent. There is no echogenic debris to suggest deep venous thrombosis. The saphenofemoral junction is unremarkable. Left lower extremity: The common femoral vein, superficial femoral vein, popliteal vein and visualized posterior tibial/calf veins are patent. There is no echogenic debris to suggest deep venous thrombosis. The saphenofemoral junction is unremarkable. IMPRESSION: 1. No evidence of deep venous thrombosis in bilateral lower extremities. REFERENCE: Deep veins include: common femoral vein, superficial femoral vein (also can be referred to as "femoral vein"), popliteal vein, posterior tibial vein Superficial veins include: greater and lesser saphenous veins SL: [id number] 09/25/2016 - - Read by: Chidi Butler MD Dictated Date/time: 09/25/16 20:45 Electronically Signed by: Chidi Butler MD 09/25/16 20:45 FINAL REPORT [facility] Chest 2 views DX Chest 2 views DX Clinical Indication: Chest pain Comparison: 05/10/2016 FINDINGS: PA and lateral chest radiographs were obtained. MEDIASTINUM: The cardiac silhouette is normal in size. The aorta demonstrates atherosclerotic calcification. LUNGS: Lung volumes are maintained. There is patchy opacity in the left lung base with blunting of the left costophrenic angle. There is hazy opacity in the right mid to lower lung and right lung base with blunting of the right costophrenic angle. BONES: The visualized osseous structures are unremarkable. IMPRESSION: Bilateral lower lung airspace disease with suggestion of small effusions. SL: [id number] 09/25/2016 - - Read by: Joe Cade MD Dictated Date/time: 09/25/16 19:35 Electronically Signed by: Joe Cade MD 09/25/16 19:36 FINAL REPORT [facility] CHEM PANEL eGFR 96 mL/min/1.73m2 05/10/2016 Result Comment: The eGFR is calculated using the CKD-EPI formula. In most young, healthy individuals the eGFR will be >90 mL/min/1.73m2. The eGFR declines with age. An eGFR of 60-89 may be normal in some populations, particularly the elderly, for whom the CKD-EPI formula has not been extensively validated. Use of the eGFR is not recommended in the following populations: Individuals with unstable creatinine concentrations, including patients and those with serious co-morbid conditions. Patients with extremes in muscle mass or diet. The data above are obtained from the National Kidney Disease Education Program (NKDEP) which additionally recommends that when the eGFR is used in patients with extremes of body mass index for purposes of drug dosing, the eGFR should be multiplied by the estimated BMI. [facility] CHEM PANEL AGAP 11.9 meq/L 10.0 - 20.0 05/10/2016 [facility] CHEM PANEL Calcium Lvl 8.8 mg/dL 8.5 - 10.5 05/10/2016 [facility] CHEM PANEL CO2 25 meq/L 24 - 32 05/10/2016 [facility] CHEM PANEL Chloride Lvl 96 meq/L 95 - 109 05/10/2016 [facility] CHEM PANEL Potassium Lvl 3.9 meq/L 3.5 - 5.1 05/10/2016 [facility] CHEM PANEL Sodium Lvl 129 meq/L 135 - 145 05/10/2016 [facility] CHEM PANEL Creatinine Lvl 0.69 mg/dL 0.50 - 1.40 05/10/2016 [facility] CHEM PANEL BUN 4 mg/dL 7 - 22 05/10/2016 [facility] CHEM PANEL Glucose Lvl 80 mg/dL 70 - 99 05/10/2016 [facility] Chest 2 views DX Chest 2 views DX PA and lateral chest: The cardiomediastinal silhouette, pulmonary vasculature and juana are within normal limits. There is mild chronic pleural thickening in the right lateral costophrenic angle with mild linear scarring or subsegmental atelectasis in right middle lobe. Lungs and pleural spaces are otherwise clear. There are no significant osseous abnormalities. There is no significant change compared to 07/20/2012. IMPRESSION: No acute radiographic abnormalities in the chest. [id number] 05/10/2016 - - Read by: Fly Pompa MD Dictated Date/time: 05/10/16 13:12 Electronically Signed by: Fly Pompa MD 05/10/16 13:12 FINAL REPORT [facility] Vital Signs Vital Sign Value Date Comments Source Temperature Oral (F) 98.4 F 04/09/2018 [facility] Heart Rate 100 04/09/2018 [facility] Respitory Rate 18 04/09/2018 [facility] Systolic (mm Hg) 128 04/09/2018 [facility] Diastolic (mm Hg) 85 04/09/2018 [facility] Systolic (mm Hg) 131 04/08/2018 [facility] Diastolic (mm Hg) 84 04/08/2018 [facility] Respitory Rate 18 04/08/2018 [facility] Temperature Oral (F) 98.3 F 04/08/2018 [facility] Heart Rate 90 04/08/2018 [facility] Heart Rate 86 04/08/2018 [facility] Respitory Rate 18 04/08/2018 [facility] Systolic (mm Hg) 105 04/08/2018 [facility] Diastolic (mm Hg) 72 04/08/2018 [facility] Temperature Oral (F) 98.4 F 04/08/2018 [facility] Weight 82.3 04/06/2018 [facility] Weight 86.364 04/05/2018 [facility] BMI Calculated 31.68 04/05/2018 [facility] Height 165.1 cm 04/05/2018 [facility] Temperature Oral (F) 98.6 F 03/07/2018 [facility] Heart Rate 81 03/07/2018 [facility] Systolic (mm Hg) 145 03/07/2018 [facility] Diastolic (mm Hg) 65 03/07/2018 [facility] Heart Rate 79 03/07/2018 [facility] Systolic (mm Hg) 160 03/07/2018 [facility] Diastolic (mm Hg) 67 03/07/2018 [facility] Heart Rate 74 03/07/2018 [facility] Systolic (mm Hg) 155 03/07/2018 [facility] Diastolic (mm Hg) 69 03/07/2018 [facility] Weight 88.182 03/07/2018 [facility] Respitory Rate 20 03/07/2018 [facility] Temperature Oral (F) 97.6 F 03/07/2018 [facility] Height 165.1 cm 03/07/2018 [facility] BMI Calculated 32.35 03/07/2018 [facility] Heart Rate 88 02/23/2018 [facility] Systolic (mm Hg) 123 02/23/2018 [facility] Diastolic (mm Hg) 69 02/23/2018 [facility] Temperature Oral (F) 98.4 F 02/23/2018 [facility] Respitory Rate 18 02/23/2018 [facility] Respitory Rate 18 02/23/2018 [facility] Temperature Oral (F) 97.5 F 02/23/2018 [facility] Systolic (mm Hg) 117 02/23/2018 [facility] Diastolic (mm Hg) 75 02/23/2018 [facility] Heart Rate 84 02/23/2018 [facility] Systolic (mm Hg) 125 02/23/2018 [facility] Diastolic (mm Hg) 58 02/23/2018 [facility] Respitory Rate 18 02/23/2018 [facility] Heart Rate 77 02/23/2018 [facility] Temperature Oral (F) 97.4 F 02/23/2018 [facility] Weight 87.045 02/23/2018 [facility] BMI Calculated 31.95 02/22/2018 [facility] Weight 87.091 02/22/2018 [facility] Height 165.1 cm 02/22/2018 [facility] Weight 86.364 02/21/2018 [facility] BMI Calculated 31.68 02/21/2018 [facility] Height 165.1 cm 02/21/2018 [facility] Respitory Rate 20 02/09/2018 [facility] Systolic (mm Hg) 163 02/09/2018 [facility] Diastolic (mm Hg) 98 02/09/2018 [facility] Systolic (mm Hg) 106 02/09/2018 [facility] Diastolic (mm Hg) 52 02/09/2018 [facility] Respitory Rate 20 02/09/2018 [facility] Respitory Rate 22 02/09/2018 [facility] Systolic (mm Hg) 133 02/09/2018 [facility] Diastolic (mm Hg) 62 02/09/2018 [facility] BMI Calculated 33.18 02/09/2018 [facility] Weight 90.455 02/09/2018 [facility] Temperature Oral (F) 97.8 F 02/09/2018 [facility] Height 165.1 cm 02/09/2018 [facility] Heart Rate 115 02/09/2018 [facility] Systolic (mm Hg) 175 05/07/2017 [facility] Diastolic (mm Hg) 86 05/07/2017 [facility] Respitory Rate 18 05/07/2017 [facility] Heart Rate 86 05/07/2017 [facility] Respitory Rate 16 05/07/2017 [facility] Systolic (mm Hg) 117 05/07/2017 [facility] Diastolic (mm Hg) 59 05/07/2017 [facility] Heart Rate 88 05/07/2017 [facility] Respitory Rate 16 05/07/2017 [facility] Systolic (mm Hg) 160 05/07/2017 [facility] Diastolic (mm Hg) 74 05/07/2017 [facility] Heart Rate 85 05/07/2017 [facility] Temperature Oral (F) 98.4 F 05/07/2017 [facility] Height 170.18 cm 05/07/2017 [facility] BMI Calculated 24.8 05/07/2017 [facility] Weight 71.818 05/07/2017 [facility] Heart Rate 71 04/16/2017 [facility] Respitory Rate 16 04/16/2017 [facility] Temperature Oral (F) 96.6 F 04/16/2017 [facility] Systolic (mm Hg) 155 04/16/2017 [facility] Diastolic (mm Hg) 71 04/16/2017 [facility] Systolic (mm Hg) 150 04/16/2017 [facility] Diastolic (mm Hg) 77 04/16/2017 [facility] Heart Rate 70 04/16/2017 [facility] Temperature Oral (F) 96.7 F 04/16/2017 [facility] Systolic (mm Hg) 112 04/16/2017 [facility] Diastolic (mm Hg) 72 04/16/2017 [facility] Respitory Rate 16 04/16/2017 [facility] Respitory Rate 16 04/16/2017 [facility] Temperature Oral (F) 97.4 F 04/16/2017 [facility] Heart Rate 74 04/16/2017 [facility] Height 165.1 cm 04/15/2017 [facility] Weight 75 04/15/2017 [facility] BMI Calculated 27.51 04/15/2017 [facility] Weight 68.182 04/15/2017 [facility] BMI Calculated 23.54 04/15/2017 [facility] Height 170.18 cm 04/15/2017 [facility] Respitory Rate 18 09/26/2016 [facility] Temperature Oral (F) 98.0 F 09/26/2016 [facility] Systolic (mm Hg) 124 09/26/2016 [facility] Diastolic (mm Hg) 75 09/26/2016 [facility] Heart Rate 87 09/26/2016 [facility] Respitory Rate 18 09/26/2016 [facility] Heart Rate 69 09/26/2016 [facility] Respitory Rate 18 09/26/2016 [facility] Systolic (mm Hg) 111 09/26/2016 [facility] Diastolic (mm Hg) 65 09/26/2016 [facility] Temperature Oral (F) 97.1 F 09/26/2016 [facility] Heart Rate 76 09/26/2016 [facility] Systolic (mm Hg) 92 09/26/2016 [facility] Diastolic (mm Hg) 61 09/26/2016 [facility] Temperature Oral (F) 98.2 F 09/26/2016 [facility] Weight 65.773 09/26/2016 [facility] Height 165.1 cm 09/26/2016 [facility] BMI Calculated 24.13 09/26/2016 [facility] Weight 64.545 09/26/2016 [facility] Height 165.1 cm 09/26/2016 [facility] BMI Calculated 23.68 09/26/2016 [facility] Temperature Oral (F) 97.5 F 05/14/2016 [facility] Resp[facility] Rate 22 05/14/2016 [facility] Heart Rate 80 05/14/2016 [facility] Systolic (mm Hg) 152 05/14/2016 [facility] Diastolic (mm Hg) 92 05/14/2016 [facility] Systolic (mm Hg) 132 05/14/2016 [facility] Diastolic (mm Hg) 92 05/14/2016 [facility] Systolic (mm Hg) 152 05/14/2016 [facility] Diastolic (mm Hg) 89 05/14/2016 [facility] Height 170.1 cm 05/14/2016 [facility] BMI Calculated 22.34 05/14/2016 [facility] Weight 64.631 05/14/2016 [facility] Heart Rate 80 05/14/2016 [facility] Temperature Oral (F) 98.1 F 05/14/2016 [facility] Respitory Rate 22 05/14/2016 [facility] Respitory Rate 21 05/14/2016 [facility] Heart Rate 71 05/14/2016 [facility] Temperature Oral (F) 97.5 F 05/10/2016 [facility] Height 170.18 cm 05/10/2016 [facility] Weight 64.631 05/10/2016 [facility] BMI Calculated 22.32 05/10/2016 [facility] BMI Calculated 23.82 01/18/2016 [facility] Weight 69 01/18/2016 [facility] Temperature Oral (F) 98.5 F 01/18/2016 [facility] Height 170.18 cm 01/18/2016 [facility] Heart Rate 96 01/18/2016 [facility] Respitory Rate 20 01/18/2016 [facility] Systolic (mm Hg) 187 01/18/2016 [facility] Diastolic (mm Hg) 107 01/18/2016 [facility] Diastolic (mm Hg) 74 08/04/2012 [facility] Systolic (mm Hg) 139 08/04/2012 [facility] Respitory Rate 20 08/04/2012 [facility] Heart Rate 91 08/04/2012 [facility] Temperature Oral (F) 99.6 F 08/04/2012 [facility] Respitory Rate 20 08/04/2012 [facility] Heart Rate 91 08/04/2012 [facility] Diastolic (mm Hg) 74 08/04/2012 [facility] Systolic (mm Hg) 139 08/04/2012 [facility] Temperature Oral (F) 99.6 F 08/04/2012 [facility] Height 170.18 cm 08/04/2012 [facility] Weight 63.636 08/04/2012 [facility] Encounters Location Location Details Encounter Type Encounter Number Reason For Visit Attending Provider ADM Date DC Date Status Source [facility] OU [id number] ELY ESCOBAR 08/04/2012 08/04/2012 Active [facility] [id number] Andie Jaswinder 04/14/2014 04/15/2014 [facility] Outpatient Imaging [facility] Care [facility] [id number] Gaurav Alvarengat 01/18/2016 01/18/2016 [facility] Observation [id number] Francis Breanne 05/14/2016 05/14/2016 [facility] Observation [id number] Temitope Valera 09/26/2016 09/27/2016 [facility] Inpatient [id number] Qutmitch Bowles 04/15/2017 04/16/2017 [facility] Emergency [id number] Margarito Arriola 05/07/2017 05/07/2017 [facility] Outpatient Imaging [facility] Outpt Diag Services [id number] Yadielkeyshawn Steiner 08/15/2017 08/16/2017 [facility] Outpatient Imaging [facility] Emergency [id number] Marcos Margie 02/09/2018 02/09/2018 [facility] Inpatient [id number] Quratmitch Danielle 02/21/2018 02/23/2018 [facility] Emergency [id number] Margarito Lopez 03/07/2018 03/07/2018 [facility] Inpatient [id number] Lety Love 04/05/2018 04/09/2018 [facility] Procedures Procedure Code Date Perfomer Comments Source Appendectomy [id number] [facility] Ch[facility] [id number] [facility] Hysterectomy [id number] [facility] Partial repair of rotator cuff [id number] [facility] Partial resection of colon [id number] [facility] Repair of nerve [id number] [facility] Repair of shoulder [id number] [facility] Tonsillectomy and adenoidectomy [id number] [facility] Appendectomy [id number] [facility] Cholecystectomy [id number] [facility] Excision of hemorrhoid(s) [id number] [facility] Outpatient Imaging [facility] Hysterectomy [id number] [facility] Partial repair of rotator cuff [id number] [facility] Partial resection of colon [id number] [facility] Repair of nerve [id number] [facility] Repair of shoulder [id number] [facility] Tonsillectomy and adenoidectomy [id number] [facility] Excision of hemorrhoid(s) [id number] [facility] Appendectomy [id number] [facility] Cholecystectomy [id number] [facility] Hysterectomy [id number] [facility] Partial repair of rotator cuff [id number] [facility] Partial resection of colon [id number] [facility] Repair of nerve [id number] [facility] Repair of shoulder [id number] [facility] Tonsillectomy and adenoidectomy [id number] [facility]
--- OUTSIDE RECORDS SUMMARY | 2018-12-02 15:24 | XMS REPORT | Summary of Care ---
Author Author [facility] Outpatient Imaging [facility] Outpatient Imaging [facility] Address Unknown Phone Unavailable Encounter GAEL [place](CLEMENTE) [id number] Date(s): 08/15/17 - 08/15/17 [facility] Outpatient Imaging [facility] [address] Discharge Disposition: Home or Self Care Attending Physician: Yadiel Steiner MD Vital Signs No data available for this section Problem List Condition Effective Dates Status Health Status Informant Acute Active pain(Confirmed)1 Angina Resolved pectoris(Confirmed) Bronchitis, Active chronic(Confirmed) Chronic Active pain(Confirmed)2 COPD (chronic Active obstructive pulmonary disease)(Confirmed) Degenerative disc Resolved disease at L5-S1 level(Confirmed) Shoulder Resolved disorder(Confirmed)3 DM (diabetes Active mellitus)(Confirmed) Emesis(Confirmed) Active Fibromyalgia(Confirm Resolved ed) HTN Active (hypertension)(Confi rmed) Bowel Resolved obstruction(Confirme d) MT (myocardial Resolved infarction)(Confirme d) Nausea(Confirmed) Active Pain Active assessment(Confirmed ) Scoliosis(Confirmed) Resolved 1s/p abdominal incision 2DX: fibromyalgia 3lt shoulder surgery x 3 Allergies, Adverse Reactions, Alerts Substance Reaction Severity Status sulfa drugs Active iodine topical Compazine Active tetracyclines Active codeine Active doxycycline Active erythromycin Active cephalexin Active penicillin Active aspirin Darvon Active Darvocet N Percocet Bylas Oil Penicillin G Benzathine,300,000 U/ML,Injection (systemic),injection Percodan Talwin Nx Doxycycline Hyclate,100 MG,Oral (systemic),capsule Tetracycline Hydrochloride,100 MG,Oral (systemic),capsule Compazine Erythromycin,Miscellaneous Routes,compounding Aspirin,800 MG,Oral (systemic),extended-release tablet Iodine,Miscellaneous Routes,granules castor oil Active mineral oil Active Keflex Active Zithromax Active Percocet Active Percodan Active Talwin Active Darvocet N Active Levaquin Active Compazine Active Darvon Active Lyrica Active Adhesive Tape Active traMADol Active OxyCONTIN Active Medications No data available for this section Results No data available for this section Immunizations No data available for this section Procedures Procedure Date Related Diagnosis Body Site Appendectomy Cholecystectomy Excision of hemorrhoid(s) Hysterectomy Partial repair of rotator cuff Partial resection of colon Repair of nerve Repair of shoulder Tonsillectomy and adenoidectomy Social History Social History Type Response Substance Abuse Use: None. Alcohol Never Smoking Status Current every day smoker; Type: Cigarettes; Ready to change: No; Concerns about tobacco use in household: No; Lives with someone who smokes; Exposure to Tobacco Smoke smoker; Cigarette Smoking Last 365 Days Yes; Reg Smoking Cessation Counseling Yes; Tobacco use per day: 4; Number of years: 20; Started at age: 35.0; Assessment and Plan No data available for this section
--- OUTSIDE RECORDS SUMMARY | 2018-12-02 15:24 | XMS REPORT | Summary of Care ---
Author Author [facility] Organization [facility] Address Unknown Phone Unavailable Encounter [facility](FIN) [id number] Date(s): 02/21/18 - 02/23/18 [facility] [address] [place] [address]- [phone] Encounter Diagnosis Hypo-osmolality and hyponatremia (Final) - Discharge Disposition: Home or Self Care Attending Physician: Jesica Danielle MD Admitting Physician: Jesica Danielle MD Vital Signs 1 2 3 Most recent to oldest [Reference Range]: 165.1 cm (02/21/18 9:43 PM) 165.1 cm (02/21/18 5:03 PM) Height 98.4 DegF (02/23/18 2:59 PM) 97.5 DegF (02/23/18 11:26 AM) 97.4 DegF (02/23/18 8:09 AM) Temperature Oral [96.4-99.1 DegF] 123/69 mmHg (02/23/18 2:59 PM) 117/75 mmHg (02/23/18 11:26 AM) 125/58 mmHg (02/23/18 10:30 AM) Blood Pressure [90-140/60-90 mmHg] 18 BRMIN (02/23/18 2:59 PM) 18 BRMIN (02/23/18 2:39 PM) 18 BRMIN (02/23/18 8:09 AM) Respiratory Rate [14-20 BRMIN] 88 bpm (02/23/18 2:59 PM) 84 bpm (02/23/18 11:26 AM) 77 bpm (02/23/18 8:09 AM) Peripheral Pulse Rate [60-100 bpm] 87.045 kg (02/23/18 4:59 AM) 87.091 kg (02/21/18 9:43 PM) 86.364 kg (02/21/18 5:03 PM) Weight 31.95 m2 (02/21/18 9:43 PM) 31.68 m2 (02/21/18 5:03 PM) Body Mass Index Problem List Condition Effective Dates Status Health Status Informant Acute Active pain(Confirmed)1 Angina Active pectoris(Confirmed) Bronchitis, Active chronic(Confirmed) Chronic Active pain(Confirmed)2 CHF (congestive Active heart failure)(Confirmed) COPD (chronic Active obstructive pulmonary disease)(Confirmed) Degenerative disc Active disease at L5-S1 level(Confirmed) Shoulder Active disorder(Confirmed)3 DM (diabetes Active mellitus)(Confirmed) Emesis(Confirmed) Active Fibromyalgia(Confirm Active ed) HTN Active (hypertension)(Confi rmed) Bowel Active obstruction(Confirme d) MD (myocardial Active infarction)(Confirme d) Nausea(Confirmed) Active Pain Active assessment(Confirmed ) Emphysema of Active lung(Confirmed) Scoliosis(Confirmed) Active 1s/p abdominal incision 2DX: fibromyalgia 3lt shoulder surgery x 3 Allergies, Adverse Reactions, Alerts Substance Reaction Severity Status sulfa drugs Active iodine topical Compazine Active tetracyclines Active codeine Active doxycycline Active erythromycin Active cephalexin Active penicillin Active aspirin Darvon Active Darvocet N Percocet Bath Oil Penicillin G Benzathine,300,000 U/ML,Injection (systemic),injection Percodan Talwin Nx Doxycycline Hyclate,100 MG,Oral (systemic),capsule Tetracycline Hydrochloride,100 MG,Oral (systemic),capsule Compazine Erythromycin,Miscellaneous Routes,compounding Aspirin,800 MG,Oral (systemic),extended-release tablet Iodine,Miscellaneous Routes,granules castor oil Active mineral oil Active Keflex Active Zithromax Active Percocet Active Percodan Active Talwin Active Darvocet N Active Levaquin Active Compazine Active Darvon Active Lyrica Active Adhesive Tape Active traMADol Active OxyCONTIN Active Medications Aciphex 20 mg, Route: PO, Drug form: ECTAB, BID, Dosing Weight 87.091, kg, Start date: 0 02/22/18 17:00:00 CDT, Duration: 30 day, Stop date: 03/24/18 9:00:00 CDT Start Date: 02/22/18 Stop Date: 02/22/18 Status: Deleted Advair Diskus 500 mcg-50 mcg inhalation powder 1 puff, INHALATION, BID, # 1 ea, 3 Refill(s) Start Date: 02/21/18 Stop Date: 03/23/18 Status: Ordered Advair Diskus 500 mcg-50 mcg inhalation powder 1 puff, Route: INHALATION, Drug Form: AERO, Dosing Weight 87.091, kg, BID, Start date: 02/22/18 17:00:00 CDT, Duration: 30 day, Stop date: 03/24/18 9:00:00 CDT Start Date: 02/22/18 Stop Date: 02/22/18 Status: Deleted albuterol 0.083% inhalation solution 2.5 mg, 3.01 mL, Route: NEB, Drug form: SOLN, RQ6H, Start date: 02/22/18 14:00:0 0 CDT, Duration: 30 day, Stop date: 03/24/18 8:00:00 CDT Notes: SEE RT DOCUMENTATION (Same as: Proventil) Start Date: 02/22/18 Stop Date: 02/23/18 Status: Discontinued atorvastatin 40 mg, 1 tab, Route: PO, Drug form: TAB, Bedtime, Dosing Weight 87.091, kg, Star t date: 02/22/18 21:00:00 CDT, Duration: 30 day, Stop date: 03/23/18 21:00:00 CD T Notes: (Same as: Lipitor) Start Date: 02/22/18 Stop Date: 02/23/18 Status: Discontinued Benadryl 25 mg, 1 tab, Route: PO, Drug form: TAB, TID, Dosing Weight 86.364, kg, PRN Itch ing, Start date: 02/21/18 19:40:00 CDT, Duration: 30 day, Stop date: 03/23/18 19 :39:00 CDT Start Date: 02/21/18 Stop Date: 02/23/18 Status: Discontinued budesonide 0.5 mg, 2 mL, Route: NEB, Drug form: SUSP, RQ12H, Start date: 02/22/18 10:05:00 CDT, Duration: 30 day, Stop date: 03/24/18 4:00:00 CDT Notes: (Same As: Pulmicort) Start Date: 02/22/18 Stop Date: 02/23/18 Status: Discontinued cloNIDine 0.1 mg oral tablet 0.1 mg=1 tab, PO, BID, # 90 tab, 3 Refill(s) Start Date: 02/21/18 Status: Ordered cloNIDine 0.1 mg oral tablet 0.1 mg, 1 tab, Route: PO, Drug form: TAB, BID, Dosing Weight 87.091, kg, Start d ate: 02/22/18 17:00:00 CDT, Duration: 30 day, Stop date: 03/24/18 9:00:00 CDT Notes: (Same As: Catapres) Start Date: 02/22/18 Stop Date: 02/23/18 Status: Discontinued clopidogrel 75 mg, 1 tab, Route: PO, Drug form: TAB, Daily, Dosing Weight 87.091, kg, Start date: 02/23/18 9:00:00 CDT, Duration: 30 day, Stop date: 03/24/18 9:00:00 CDT Notes: (Same As: Plavix) Start Date: 02/23/18 Stop Date: 02/23/18 Status: Discontinued cyclobenzaprine 10 mg, 1 tab, Route: PO, Drug form: TAB, Bedtime, Dosing Weight 87.091, kg, Star t date: 02/22/18 21:00:00 CDT, Duration: 30 day, Stop date: 03/23/18 21:00:00 CD T Notes: (Same As: Flexeril) Start Date: 02/22/18 Stop Date: 02/23/18 Status: Discontinued cycloSPORINE ophthalmic 1 drp, Route: BOTH EYES, Q12H, Drug form: DROP, Start date: 02/22/18 10:00:00 CD T, Duration: 30 day, Stop date: 03/24/18 9:00:00 CDT Notes: (Same as: Restasis) Start Date: 02/22/18 Stop Date: 02/23/18 Status: Discontinued Dextrose 50% Syringe 12.5 gm, 25 mL, Route: IVP, Drug Form: INJ, Dosing Weight 87.091, kg, PRN, PRN B lood Glucose Results, Start date: 02/22/18 2:22:00 CDT, Duration: 30 day, Stop d ate: 03/24/18 2:21:00 CDT Start Date: 02/22/18 Stop Date: 02/23/18 Status: Discontinued Dextrose 50% Syringe 25 gm, 50 mL, Route: IVP, Drug Form: INJ, Dosing Weight 87.091, kg, PRN, PRN Blo od Glucose Results, Start date: 02/22/18 2:22:00 CDT, Duration: 30 day, Stop [place] e: 03/24/18 2:21:00 CDT Start Date: 02/22/18 Stop Date: 02/23/18 Status: Discontinued dicyclomine 20 mg oral tablet 20 mg=1 tab, PO, TID-Meals, 0 Refill(s) Start Date: 02/21/18 Status: Ordered Dilaudid 4 mg, 2 tab, Route: PO, Drug form: TAB, Q8H, Dosing Weight 86.364, kg, PRN Pain Score 4-6, Start date: 02/21/18 19:44:00 CDT, Stop date: 03/23/18 19:43:00 CDT Notes: (Same as: Dilaudid) Start Date: 02/21/18 Stop Date: 02/23/18 Status: Discontinued Dilaudid 8 mg, 4 tab, Route: PO, Drug form: TAB, Q6H, Dosing Weight 87.091, kg, PRN Pain Score 7-10, Start date: 02/22/18 16:33:00 CDT, Duration: 30 day, Stop date: 03/08 03/25 16:32:00 CDT Notes: (Same as: Dilaudid) Start Date: 02/22/18 Stop Date: 02/23/18 Status: Discontinued Dilaudid 8 mg oral tablet 8 mg=1 tab, PO, Q6H, PRN Pain, 0 Refill(s) Start Date: 02/21/18 Stop Date: 02/28/18 Status: Ordered docusate-senna 50 mg-8.6 mg oral tablet 1 tab, Route: PO, Drug Form: TAB, Dosing Weight 86.364, kg, BID, hold for lose B Ms, Start date: 02/22/18 9:00:00 CDT, Duration: 30 day, Stop date: 03/23/18 21:0 0:00 CDT Notes: (Same as Senokot-S) Equiv. to Tabitha-Colace. Start Date: 02/22/18 Stop Date: 02/23/18 Status: Discontinued doxepin 50 mg oral capsule 50 mg=1 cap, PO, Bedtime, # 30 cap, 0 Refill(s) Start Date: 02/21/18 Stop Date: 02/23/18 Status: Discontinued DuoNeb inhalation solution 3 ml, Route: INHALATION, Drug Form: SOLN, Dosing Weight 86.364, kg, RQID, NOW, S tart date: 02/21/18 21:13:00 CDT, Duration: 30 day, Stop date: 03/23/18 19:00:00 CDT Notes: (Same as: Duoneb) Start Date: 02/21/18 Stop Date: 02/23/18 Status: Discontinued Flexeril 10 mg oral tablet 10 mg=1 tab, PO, Bedtime, 0 Refill(s) Start Date: 02/21/18 Status: Ordered Flomax 0.4 mg, 1 cap, Route: PO, Drug form: CAP, After Breakfast, Dosing Weight 86.364, kg, Start date: 02/22/18 8:30:00 CDT, Duration: 30 day, Stop date: 03/23/18 8:3 0:00 CDT Notes: (Same As: Flomax) "Do Not Crush" Start Date: 02/22/18 Stop Date: 02/23/18 Status: Discontinued glucagon 1 mg, Route: IM, Drug form: PDR/INJ, PRN, Dosing Weight 87.091, kg, PRN Blood Gl ucose Results, Start date: 02/22/18 2:22:00 CDT, Duration: 30 day, Stop date: 2:21:00 CDT Start Date: 02/22/18 Stop Date: 02/23/18 Status: Discontinued hydrALAZINE 10 mg, 0.5 mL, Route: IVP, Drug form: INJ, Q4H, Dosing Weight 87.045, kg, PRN Hy pertension, Start date: 02/23/18 9:13:00 CDT, Stop date: 03/25/18 9:13:00 CDT Notes: (Same as: Apresoline)Push over 5 minutes Start Date: 02/23/18 Stop Date: 02/23/18 Status: Discontinued insulin lispro 4 unit, 0.04 mL, Route: SUB-Q, Drug form: SOLN, Bedtime, Dosing Weight 87.091, k g, PRN Blood Glucose Results, Start date: 02/22/18 2:22:00 CDT, Duration: 30 day , Stop date: 03/24/18 2:21:00 CDT Notes: (Same as: Humalog ) Roll in palms of hands gently; Do not shake `vigorou sly. "Single Patient Use Only " WASTE: F/P - Black; E - [facility] [address] [address] able for 28 days at room temperature.Expires in days from Da te Start Date: 02/22/18 Stop Date: 02/23/18 Status: Discontinued insulin lispro 3 unit, 0.03 mL, Route: SUB-Q, Drug form: SOLN, Bedtime, Dosing Weight 87.091, k g, PRN Blood Glucose Results, Start date: 02/22/18 2:22:00 CDT, Duration: 30 day , Stop date: 03/24/18 2:21:00 CDT Notes: (Same as: Humalog ) Roll in palms of hands gently; Do not shake `vigorou sly. "Single Patient Use Only " WASTE: F/P - Black; E - [facility] [address] [address] able for 28 days at room temperature.Expires in days from Da te Start Date: 02/22/18 Stop Date: 02/23/18 Status: Discontinued insulin lispro 4 unit, 0.04 mL, Route: SUB-Q, Drug form: SOLN, TID-Before Meals, Dosing Weight 87.091, kg, PRN Blood Glucose Results, Start date: 02/22/18 2:22:00 CDT, Duratio n: 30 day, Stop date: 03/24/18 2:21:00 CDT Notes: (Same as: Humalog ) Roll in palms of hands gently; Do not shake `vigorou sly. "Single Patient Use Only " WASTE: F/P - Black; E - [facility] [address] able for 28 days at room temperature.Expires in days from Da te Start Date: 02/22/18 Stop Date: 02/23/18 Status: Discontinued insulin lispro 6 unit, 0.06 mL, Route: SUB-Q, Drug form: SOLN, TID-Before Meals, Dosing Weight 87.091, kg, PRN Blood Glucose Results, Start date: 02/22/18 2:22:00 CDT, Duratio n: 30 day, Stop date: 03/24/18 2:21:00 CDT Notes: (Same as: Humalog ) Roll in palms of hands gently; Do not shake `vigorou sly. "Single Patient Use Only " WASTE: F/P - Black; E - [facility] [address] able for 28 days at room temperature.Expires in days from Da te Start Date: 02/22/18 Stop Date: 02/23/18 Status: Discontinued insulin lispro 10 unit, 0.1 mL, Route: SUB-Q, Drug form: SOLN, TID-Before Meals, Dosing Weight 87.091, kg, PRN Blood Glucose Results, Start date: 02/22/18 2:22:00 CDT, Duratio n: 30 day, Stop date: 03/24/18 2:21:00 CDT Notes: (Same as: Humalog ) Roll in palms of hands gently; Do not shake `vigorou sly. "Single Patient Use Only " WASTE: F/P - Black; E - [facility] [address] able for 28 days at room temperature.Expires in days from Da te Start Date: 02/22/18 Stop Date: 02/23/18 Status: Discontinued insulin lispro 8 unit, 0.08 mL, Route: SUB-Q, Drug form: SOLN, TID-Before Meals, Dosing Weight 87.091, kg, PRN Blood Glucose Results, Start date: 02/22/18 2:22:00 CDT, Duratio n: 30 day, Stop date: 03/24/18 2:21:00 CDT Notes: (Same as: Humalog ) Roll in palms of hands gently; Do not shake `vigorou sly. "Single Patient Use Only " WASTE: F/P - Black; E - [facility] [address] able for 28 days at room temperature.Expires in days from Da te Start Date: 02/22/18 Stop Date: 02/23/18 Status: Discontinued insulin lispro 2 unit, 0.02 mL, Route: SUB-Q, Drug form: SOLN, TID-Before Meals, Dosing Weight 87.091, kg, PRN Blood Glucose Results, Start date: 02/22/18 2:22:00 CDT, Duratio n: 30 day, Stop date: 03/24/18 2:21:00 CDT Notes: (Same as: Humalog ) Roll in palms of hands gently; Do not shake `vigorou sly. "Single Patient Use Only " WASTE: F/P - Black; E - [facility] [address] able for 28 days at room temperature.Expires in days from Da te Start Date: 02/22/18 Stop Date: 02/23/18 Status: Discontinued insulin lispro 1 unit, 0.01 mL, Route: SUB-Q, Drug form: SOLN, Bedtime, Dosing Weight 87.091, k g, PRN Blood Glucose Results, Start date: 02/22/18 2:22:00 CDT, Duration: 30 day , Stop date: 03/24/18 2:21:00 CDT Notes: (Same as: Humalog ) Roll in palms of hands gently; Do not shake `vigorou sly. "Single Patient Use Only " WASTE: F/P - Black; E - [facility] [address] able for 28 days at room temperature.Expires in days from Da te Start Date: 02/22/18 Stop Date: 02/23/18 Status: Discontinued insulin lispro 2 unit, 0.02 mL, Route: SUB-Q, Drug form: SOLN, Bedtime, Dosing Weight 87.091, k g, PRN Blood Glucose Results, Start date: 02/22/18 2:22:00 CDT, Duration: 30 day , Stop date: 03/24/18 2:21:00 CDT Notes: (Same as: Humalog ) Roll in palms of hands gently; Do not shake `melanieorou sly. "Single Patient Use Only " WASTE: F/P - Black; E - [facility] [address] able for 28 days at room temperature.Expires in days from Da te Start Date: 02/22/18 Stop Date: 02/23/18 Status: Discontinued Lovenox 40 mg, 0.4 mL, Route: SUB-Q, Drug form: INJ, [id number], Dosing Weight 86.364, kg, if patient is post-op please verify with surgeon if okay to give for prophylaxi s, Start date: 02/21/18 22:00:00 CDT, Duration: 30 day, Stop date: 03/22/18 22:0 0:00 CDT Notes: (Same as: Lovenox) Start Date: 02/21/18 Stop Date: 02/23/18 Status: Discontinued magnesium sulfate 2 gm, 50 mL, Route: IVPB, Drug form: INJ, ONCE, Dosing Weight 86.364, kg, Priori ty: STAT, Start date: 02/21/18 18:50:00 CDT, Stop date: 02/21/18 18:50:00 CDT Notes: WASTE: F/P - Sink; E - [employer] Trash [employer] Start Date: 02/21/18 Stop Date: 02/21/18 Status: Completed meclizine 25 mg, 1 tab, Route: PO, Drug form: TAB, QID, Dosing Weight 87.091, kg, PRN Dizz iness, Start date: 02/22/18 20:08:00 CDT, Duration: 30 day, Stop date: 03/24/18 20:07:00 CDT Notes: (Same as: Antivert) Start Date: 02/22/18 Stop Date: 02/23/18 Status: Discontinued meclizine 25 mg oral tablet 25 mg=1 tab, PO, QID, 0 Refill(s) Start Date: 02/21/18 Status: Ordered meclizine 25 mg oral tablet 25 mg=1 tab, PO, QID, PRN dizziness, 0 Refill(s) Start Date: 02/21/18 Stop Date: 02/23/18 Status: Discontinued metoprolol 5 mg/5 ml INJ 5 mg, 5 mL, Route: IVP, Drug form: INJ, Q6H, Dosing Weight 87.045, kg, PRN Tachy cardia, Start date: 02/23/18 9:13:00 CDT, Stop date: 03/25/18 21:12:00 CDT Notes: (Same as: Lopressor)Push over 2 minutes Start Date: 02/23/18 Stop Date: 02/23/18 Status: Discontinued MiraLax 17 gm, 1 pkt, Route: PO, Drug form: PWDR, Daily, Dosing Weight 86.364, kg, hold for lose BMs, Priority: NOW, Start date: 02/21/18 19:45:00 CDT, Duration: 30 day , Stop date: 03/23/18 9:00:00 CDT Notes: Dissolve in 8 oz of water or juice.(Same as: Miralax) Start Date: 02/21/18 Stop Date: 02/23/18 Status: Discontinued nitroglycerin 0.4 mg sublingual tablet 0.4 mg, 1 tab, Route: SL, Drug form: TAB, Q5Min, Dosing Weight 87.045, kg, PRN C hest Pain, Start date: 02/23/18 9:13:00 CDT, Duration: 30 day, Stop date: 9:12:00 CDT Notes: (Same as:Nitroquick, Nitrostat)"Do Not Crush" Sublingual tablet Start Date: 02/23/18 Stop Date: 02/23/18 Status: Discontinued [place] 5/325 oral tablet 2 tab, Route: PO, Drug Form: TAB, Dosing Weight 86.364, kg, ONCE, Start date: 18:50:00 CDT, Stop date: 02/21/18 18:50:00 CDT Notes: (Same as: [place] 325/5) Do not exceed 4gm/day of acetaminophen. Start Date: 02/21/18 Stop Date: 02/21/18 Status: Completed normal saline 0.9% IV 1,000 mL 1,000 mL, Rate: 75 ml/hr, Infuse over: 13.3 hr, Route: IV, Dosing Weight 86.364 kg, Total Volume: 1,000, Start date: 02/21/18 19:40:00 CDT, Duration: 30 day, St op date: 03/23/18 19:39:00 CDT, 2.02, m2 Start Date: 02/21/18 Stop Date: 02/23/18 Status: Discontinued Phenergan 12.5 mg, 50 mL, Route: IVPB, Drug form: SOLN, Q6H, Dosing Weight 86.364, kg, PRN Nausea & Vomiting, Start date: 02/21/18 21:01:00 CDT, Duration: 30 day, Stop date: 03/23/18 21:00:00 CDT Start Date: 02/21/18 Stop Date: 02/23/18 Status: Discontinued polyethylene glycol 3350 oral kit 1, PO, Daily, # 15 bag, 0 Refill(s), Pharmacy: [id number] Start Date: 02/23/18 Status: Ordered Protonix 40 mg, 1 tab, Route: PO, Drug form: ECTAB, Before Dinner, Start date: 02/22/18 1 6:30:00 CDT, Duration: 30 day, Stop date: 03/23/18 16:30:00 CDT Notes: Tablet should not be chewed or crushed.(Same as: Protonix) Start Date: 02/22/18 Stop Date: 02/23/18 Status: Discontinued Saline Flush 0.9% 10 mL, Route: IVP, Drug Form: INJ, Dosing Weight 86.364, kg, PRN, PRN Line Flush , Start date: 02/21/18 17:10:00 CDT, Duration: 30 day, Stop date: 03/23/18 17:09 :00 CDT Notes: (Same as: BD Posiflush) Start Date: 02/21/18 Stop Date: 02/21/18 Status: Deleted Saline Flush 0.9% 10 ml, Route: IVP, Drug Form: INJ, Dosing Weight 86.364, kg, Q12H, Start date: 0 02/21/18 21:00:00 CDT, Duration: 30 day, Stop date: 03/23/18 9:00:00 CDT Notes: (Same as: BD Posiflush) Start Date: 02/21/18 Stop Date: 02/23/18 Status: Discontinued Saline Flush 0.9% 10 ml, Route: IVP, Drug Form: INJ, Dosing Weight 86.364, kg, PRN, PRN Line Flush , Start date: 02/21/18 19:40:00 CDT, Duration: 30 day, Stop date: 03/23/18 19:39 :00 CDT Notes: (Same as: BD Posiflush) Start Date: 02/21/18 Stop Date: 02/23/18 Status: Discontinued Tums 500 mg, 1 tab, Route: CHEW, Drug form: CHEWTAB, TID, Dosing Weight 86.364, kg, P RN Indigestion, Start date: 02/21/18 19:40:00 CDT, Duration: 30 day, Stop date: 03/23/18 19:39:00 CDT Notes: (Same As: Tums)Calcium Carbonate 500 sz=602 mg elemental calcium Dose=_ mg calcium carbonate ( mg elemental calcium) Start Date: 02/21/18 Stop Date: 02/23/18 Status: Discontinued Tylenol 650 mg, Route: PO, Drug form: TAB, QID, Dosing Weight 86.364, kg, PRN Pain 1-3/T emp > 100.4 F, Start date: 02/21/18 19:40:00 CDT, Duration: 30 day, Stop date: 03/23/18 19:39:00 CDT Start Date: 02/21/18 Stop Date: 02/21/18 Status: Deleted Tylenol 650 mg, 2 tab, Route: PO, Drug form: TAB, QID, Dosing Weight 86.364, kg, PRN Evie n 1-3/Temp > 100.4 F, Start date: 02/21/18 19:40:00 CDT, Duration: 30 day, Stop date: 03/23/18 19:39:00 CDT Notes: Do not exceed 4 gm/day. (Same as: Tylenol) Start Date: 02/21/18 Stop Date: 02/23/18 Status: Discontinued valsartan 160 mg, 1 tab, Route: PO, Drug form: TAB, Daily, Dosing Weight 87.091, kg, Start date: 02/23/18 9:00:00 CDT, Duration: 30 day, Stop date: 03/24/18 9:00:00 CDT Notes: Same as Diovan Start Date: 02/23/18 Stop Date: 02/23/18 Status: Discontinued valsartan 160 mg oral tablet 160 mg=1 tab, PO, Daily, 0 Refill(s) Start Date: 02/21/18 Status: Ordered Xanax 1 mg oral tablet 2 mg, 2 tab, Route: PO, Drug form: TAB, Bedtime, Dosing Weight 86.364, kg, PRN a s needed for anxiety, Start date: 02/21/18 19:44:00 CDT, Duration: 30 day, Stop date: 03/23/18 19:43:00 CDT Notes: With food or milk(Same as: Xanax) Start Date: 02/21/18 Stop Date: 02/23/18 Status: Discontinued Zofran 4 mg, 2 mL, Route: IV, Drug form: INJ, Q8H, Dosing Weight 86.364, kg, PRN Nausea , Start date: 02/21/18 21:01:00 CDT, Duration: 30 day, Stop date: 03/23/18 21:00 :00 CDT Notes: (Same as: Zofran) MEDICATION WASTE Product Size: 4 mgProduct Was lj: ___ mg Start Date: 02/21/18 Stop Date: 02/23/18 Status: Discontinued Zofran ODT 4 mg, 1 tab, Route: PO, Drug form: TABDIS, ONCE, Dosing Weight 86.364, kg, Start date: 02/21/18 20:46:00 CDT, Stop date: 02/21/18 20:46:00 CDT Notes: (Same as: Zofran ODT) Start Date: 02/21/18 Stop Date: 02/21/18 Status: Completed Results ELECTROLYTES 1 2 3 Most recent to oldest [Reference Range]: 131 mEq/L *LOW* (02/23/18 4:43 AM) 128 mEq/L *LOW* (02/22/18 5:43 AM) 119 mEq/L 1 *CRIT* (02/21/18 5:41 PM) Sodium Lvl [135-145 mEq/L] 4.5 mEq/L (02/23/18 4:43 AM) 3.9 mEq/L (02/22/18 5:43 AM) 4.7 mEq/L (02/21/18 5:41 PM) Potassium Lvl [3.5-5.1 mEq/L] 95 mEq/L (02/23/18 4:43 AM) 89 mEq/L *LOW* (02/22/18 5:43 AM) 83 mEq/L *LOW* (02/21/18 5:41 PM) Chloride Lvl [95-109 mEq/L] 29 mEq/L (02/23/18 4:43 AM) 30 mEq/L (02/22/18 5:43 AM) 30 mEq/L (02/21/18 5:41 PM) CO2 [24-32 mEq/L] 11.5 mEq/L (02/23/18 4:43 AM) 12.9 mEq/L (02/22/18 5:43 AM) 10.7 mEq/L (02/21/18 5:41 PM) AGAP [10.0-20.0 mEq/L] 1Result Comment: Critical Result(s) called to Nakita Ruiz at 02/21/2018 18:18 by PETEY. Read back OK. CHEM PANEL 1 2 3 Most recent to oldest [Reference Range]: 0.73 mg/dL (02/23/18 4:43 AM) 0.74 mg/dL (02/22/18 5:43 AM) 0.79 mg/dL (02/21/18 5:41 PM) Creatinine Lvl [0.50-1.40 mg/dL] 89 mL/min/1.73m2 1 *NA* (02/23/18 4:43 AM) 88 mL/min/1.73m2 2 *NA* (02/22/18 6:20 AM) 81 mL/min/1.73m2 3 *NA* (02/21/18 5:41 PM) eGFR 10 mg/dL (02/23/18 4:43 AM) 9 mg/dL (02/22/18 5:43 AM) 10 mg/dL (02/21/18 5:41 PM) BUN [7-22 mg/dL] 12 (02/22/18 5:43 AM) 13 (02/21/18 5:41 PM) B/C Ratio [6-25] 101 mg/dL *HI* (02/23/18 4:43 AM) 123 mg/dL *HI* (02/22/18 5:43 AM) 95 mg/dL (02/21/18 5:41 PM) Glucose Lvl [70-99 mg/dL] 6.3 g/dL *LOW* (02/22/18 5:43 AM) 6.8 g/dL (02/21/18 5:41 PM) Total Protein [6.4-8.4 g/dL] 3.1 g/dL *LOW* (02/22/18 5:43 AM) 3.4 g/dL *LOW* (02/21/18 5:41 PM) Albumin Lvl [3.5-5.0 g/dL] 3.2 g/dL (02/22/18 5:43 AM) 3.4 g/dL (02/21/18 5:41 PM) Globulin [2.7-4.2 g/dL] 1.0 (02/22/18 5:43 AM) 1.0 (02/21/18 5:41 PM) A/G Ratio [0.7-1.6] 7.8 mg/dL *LOW* (02/23/18 4:43 AM) 9.2 mg/dL (02/22/18 5:43 AM) 9.1 mg/dL (02/21/18 5:41 PM) Calcium Lvl [8.5-10.5 mg/dL] 4.6 mg/dL *HI* (02/22/18 6:20 AM) Phosphorus [2.5-4.5 mg/dL] 1.6 mg/dL *LOW* (02/22/18 5:43 AM) 1.2 mg/dL *LOW* (02/21/18 5:41 PM) Magnesium Lvl [1.8-2.4 mg/dL] 64 unit/L (02/22/18 5:43 AM) 58 unit/L (02/21/18 5:41 PM) ALT [0-65 unit/L] 43 unit/L *HI* (02/22/18 5:43 AM) 41 unit/L *HI* (02/21/18 5:41 PM) AST [0-37 unit/L] 95 unit/L (02/22/18 5:43 AM) 104 unit/L (02/21/18 5:41 PM) Alk Phos [39-136 unit/L] 0.4 mg/dL (02/22/18 5:43 AM) 0.2 mg/dL (02/21/18 5:41 PM) Bili Total [0.2-1.3 mg/dL] 249 mOsm/kg *LOW* (02/21/18 5:41 PM) Osmolality [280-300 mOsm/kg] 1Result Comment: The eGFR is calculated using the [...] from the [employer] ( [employer]) which additionally recommends that when the eGFR is used in patients with extremes of body mass index for purposes of drug dosing, the eGFR should be mul tiplied by the estimated BMI. 2Result Comment: The eGFR is calculated using the [...] from the [employer] ( [employer]) which additionally recommends that when the eGFR is used in patients with extremes of body mass index for purposes of drug dosing, the eGFR should be mul tiplied by the estimated BMI. 3Result Comment: The eGFR is calculated using the [...] from the [employer] Program ( [employer]) which additionally recommends that when the eGFR is used in patients with extremes of body mass index for purposes of drug dosing, the eGFR should be mul tiplied by the estimated BMI. CARDIAC ENZYMES 1 2 3 Most recent to oldest [Reference Range]: 216 unit/L *HI* (02/22/18 6:20 AM) 313 unit/L *HI* (02/21/18 11:04 PM) 336 unit/L *HI* (02/21/18 5:41 PM) Total CK [12-191 unit/L] 4.3 ng/mL *HI* (02/22/18 6:20 AM) 5.7 ng/mL *HI* (02/21/18 11:04 PM) 5.4 ng/mL *HI* (02/21/18 5:41 PM) CK MB [0.5-3.6 ng/mL] 2.0 (02/22/18 6:20 AM) 1.8 (02/21/18 11:04 PM) 1.6 (02/21/18 5:41 PM) CK MB Index [0.0-2.5] <0.02 ng/mL (02/22/18 6:20 AM) <0.02 ng/mL (02/21/18 11:04 PM) <0.02 ng/mL (02/21/18 5:41 PM) Troponin-I [0.00-0.40 ng/mL] 18 pg/mL (02/21/18 5:41 PM) BNP [<=100 pg/mL] LIPIDS 1 2 3 Most recent to oldest [Reference Range]: 2.96 *LOW* (02/22/18 6:20 AM) CHD Risk [3.90-5.80] 166 mg/dL (02/22/18 6:20 AM) Chol [<=199 mg/dL] 97 mg/dL (02/22/18 6:20 AM) Trig [<=149 mg/dL] 56 mg/dL *LOW* (02/22/18 6:20 AM) HDL [>=61 mg/dL] 91 mg/dL (02/22/18 6:20 AM) LDL (Calculated) [<=99 mg/dL] 19 *NA* (02/22/18 6:20 AM) VLDL SPECIAL CHEMISTRY 1 2 3 Most recent to oldest [Reference Range]: 14 pg/mL (02/21/18 5:41 PM) ACTH Lvl [0-46 pg/mL] DRUG SCREEN 1 2 3 Most recent to oldest [Reference Range]: Negative *NA* (02/22/18 12:36 AM) U Amph Scr [Negative] Negative *NA* (02/22/18 12:36 AM) U Narda Scr [Negative] Positive *ABN* (02/22/18 12:36 AM) U Benzodia Scr [Negative] Negative *NA* (02/22/18 12:36 AM) U Cocaine Scr [Negative] Positive *ABN* (02/22/18 12:36 AM) U Opiate Scr [Negative] Negative *NA* (02/22/18 12:36 AM) U Phencyc Scr [Negative] Negative *NA* (02/22/18 12:36 AM) U Cannab Scr [Negative] See Note (02/22/18 12:36 AM) UDS Note ENDOCRINOLOGY 1 2 3 Most recent to oldest [Reference Range]: 6.5 ug/dl *NA* (02/22/18 6:20 AM) 20.0 ug/dl *NA* (02/21/18 5:41 PM) Cortisol URINE CHEM 1 2 3 Most recent to oldest [Reference Range]: 32 mEq/L *NA* (02/22/18 12:52 PM) U Sodium 136 mOsm/kg *LOW* (02/22/18 12:52 PM) U Osmolality [300-800 mOsm/kg] URINE AND STOOL 1 2 3 Most recent to oldest [Reference Range]: Slight *ABN* (02/21/18 6:19 PM) UA Turbidity [Clear] Yellow *NA* (02/21/18 6:19 PM) UA Color [Yellow] 6.0 (02/21/18 6:19 PM) UA pH [5.0-8.0] 1.004 (02/21/18 6:19 PM) UA Spec Grav [<=1.030] Negative mg/dL *NA* (02/21/18 6:19 PM) UA Glucose [Negative mg/dL] Negative (02/21/18 6:19 PM) UA Blood [Negative] Negative mg/dL *NA* (02/21/18 6:19 PM) UA Ketones [Negative mg/dL] Negative mg/dL (02/21/18 6:19 PM) UA Protein [Negative mg/dL] <=1.0 mg/dL *NA* (02/21/18 6:19 PM) UA Urobilinogen [0.1-1.0 mg/dL] Negative *NA* (02/21/18 6:19 PM) UA Bili [Negative] Negative (02/21/18 6:19 PM) UA Leuk Est [Negative] Negative (02/21/18 6:19 PM) UA Nitrite [Negative] 1 /HPF (02/21/18 6:19 PM) UA WBC [0-5 /HPF] 1 /HPF (02/21/18 6:19 PM) UA RBC [0-2 /HPF] Occasional /LPF *NA* (02/21/18 6:19 PM) UA Sq Epi [Few /LPF] Few /LPF *NA* (02/21/18 6:19 PM) UA Mucus [None Seen /LPF] HEMATOLOGY 1 2 3 Most recent to oldest [Reference Range]: 8.7 K/CMM (02/22/18 5:43 AM) 11.3 K/CMM *HI* (02/21/18 5:41 PM) WBC [3.7-10.4 K/CMM] 3.65 M/CMM *LOW* (02/22/18 5:43 AM) 3.47 M/CMM *LOW* (02/21/18 5:41 PM) RBC [4.20-5.40 M/CMM] 11.1 g/dL *LOW* (02/22/18 5:43 AM) 10.5 g/dL *LOW* (02/21/18 5:41 PM) Hgb [12.0-16.0 g/dL] 33.6 % *LOW* (02/22/18 5:43 AM) 31.0 % *LOW* (02/21/18 5:41 PM) Hct [36.0-48.0 %] 92.0 fL (02/22/18 5:43 AM) 89.5 fL (02/21/18 5:41 PM) MCV [80.0-98.0 fL] 30.4 pg (02/22/18 5:43 AM) 30.4 pg (02/21/18 5:41 PM) MCH [27.0-31.0 pg] 33.1 g/dL (02/22/18 5:43 AM) 33.9 g/dL (02/21/18 5:41 PM) MCHC [32.0-36.0 g/dL] 12.7 % (02/22/18 5:43 AM) 12.5 % (02/21/18 5:41 PM) RDW [11.5-14.5 %] 6.3 fL *LOW* (02/22/18 5:43 AM) 6.2 fL *LOW* (02/21/18 5:41 PM) MPV [7.4-10.4 fL] 250 K/CMM (02/22/18 5:43 AM) 332 K/CMM (02/21/18 5:41 PM) Platelet [133-450 K/CMM] 83.2 % *HI* (02/21/18 5:41 PM) Segs [45.0-75.0 %] 8.3 % *LOW* (02/21/18 5:41 PM) Lymphocytes [20.0-40.0 %] 5.9 % (02/21/18 5:41 PM) Monocytes [2.0-12.0 %] 2.0 % (02/21/18 5:41 PM) Eosinophils [0.0-4.0 %] 0.6 % (02/21/18 5:41 PM) Basophils [0.0-1.0 %] 9.4 K/CMM *HI* (02/21/18 5:41 PM) Segs-Bands # [1.5-8.1 K/CMM] 0.9 K/CMM *LOW* (02/21/18 5:41 PM) Lymphocytes # [1.0-5.5 K/CMM] 0.7 K/CMM (02/21/18 5:41 PM) Monocytes # [0.0-0.8 K/CMM] 0.2 K/CMM (02/21/18 5:41 PM) Eosinophils # [0.0-0.5 K/CMM] 0.1 K/CMM (02/21/18 5:41 PM) Basophils # [0.0-0.2 K/CMM] 11.5 seconds *LOW* (02/21/18 5:41 PM) PT [12.0-14.7 seconds] 0.84 *LOW* (02/21/18 5:41 PM) INR [0.85-1.17] 32.7 seconds (02/21/18 5:41 PM) PTT [22.9-35.8 seconds] Immunizations No data available for this section Procedures Procedure Date Related Diagnosis Body Site Status Appendectomy Completed Cholecystectomy Completed Excision of hemorrhoid(s) Completed Hysterectomy Completed Partial repair of rotator cuff Completed Partial resection of colon Completed Repair of nerve Completed Repair of shoulder Completed Tonsillectomy and adenoidectomy Completed Social History Social History Type Response Substance Abuse Use: None. Alcohol Never Smoking Status Former smoker; Type: Cigarettes; Ready to change: No; Concerns about tobacco use in household: No; Lives with someone who smokes; Exposure to Tobacco Smoke smoker; Cigarette Smoking Last 365 Days Yes; Reg Smoking Cessation Counseling Yes; Tobacco use per day: 4; Number of years: 20; Started at age: [age]; entered on: 02/21/18 Assessment and Plan Extracted from: Title: [facility] Progress Note * Author: Wesley Rojas MD Date: 02/23/18 Impression and Plan Extracted from: Title: Hospitalist H&P * Author: Jesica Danielle Date: 02/21/18 Impression and Plan Syncope Hyponatremia, critical with a sodium of 119 on presentation Possible SIADH as documented on discharge summary during previous hospitalization Intractable nausea and vomiting, patient was told she has nephrolithiasis causing her symptoms Lower extremity swelling, mild, rule out DVT Diabetes mellitus Essential hypertension Fibromyalgia Chronic pain syndrome with chronic pain pump and chronic use of oral Dilaudid COPD without evidence of exacerbation Gastroesophageal reflux disease Hypomagnesemia Obesity with a BMI of greater than 30 Patient will be admitted for further management We will go ahead and obtain abdomen pelvis CT scan to rule out obstructive pathology with a recent history of nephrolithiasis We will go ahead and provide her with some IV fluid resuscitation her syncope and hyponatremia could likely be from dehydration from nausea and vomiting which has been occurring for the past couple days Provide antiemetics including IV Zofran and Phenergan as needed Pharmacist consult for evaluation of home medications to see if this could be contributing to her hyponatremia Home medications as appropriate and tolerated, continue with home pain medication control Supportive management Follow electro lites closely, nephrology consultation In regards to her lower extremity edema will go ahead and obtain lower extremity ultrasounds to rule out DVT Obtain carotid ultrasound and transthoracic echo in regards to a syncopal episode, monitor neurologic status closely Monitor on telemetry Further management pending clinical course and workup above DVT prophylaxis: Lovenox subcu CODE STATUS: Patient is full code Disposition: Inpatient management, anticipate greater than 2 midnight stay
--- OUTSIDE RECORDS SUMMARY | 2018-12-02 15:24 | XMS REPORT | Summary of Care ---
Author Author [facility] Organization [facility] Address Unknown Phone Unavailable Encounter GAEL Toledo(CLEMENTE) [id number] Date(s): 02/08/18 - 02/09/18 [facility] [address] [place] [address]- [phone] Encounter Diagnosis COPD exacerbation (Discharge Diagnosis) - 02/09/18 Discharge Disposition: Home or Self Care Attending Physician: Marcos Hanson MD Vital Signs 1 2 3 Most recent to oldest [Reference Range]: 165.1 cm (02/08/18 11:10 PM) Height 97.8 DegF (02/08/18 11:10 PM) Temperature Oral [96.4-99.1 DegF] 163/98 mmHg *HI* (02/09/18 2:30 AM) 106/52 mmHg (02/09/18 1:05 AM) 133/62 mmHg (02/09/18 12:27 AM) Blood Pressure [90-140/60-90 mmHg] 20 BRMIN (02/09/18 2:30 AM) 20 BRMIN (02/09/18 1:05 AM) 22 BRMIN *HI* (02/09/18 12:27 AM) Respiratory Rate [14-20 BRMIN] 115 bpm *HI* (02/08/18 11:10 PM) Peripheral Pulse Rate [60-100 bpm] 90.455 kg (02/08/18 11:10 PM) Weight 33.18 m2 (02/08/18 11:10 PM) Body Mass Index Problem List Condition Effective Dates Status Health Status Informant Acute Active pain(Confirmed)1 Angina Active pectoris(Confirmed) Bronchitis, Active chronic(Confirmed) Chronic Active pain(Confirmed)2 CHF (congestive Active heart failure)(Confirmed) COPD (chronic Active obstructive pulmonary disease)(Confirmed) Degenerative disc Active disease at L5-S1 level(Confirmed) Shoulder Active disorder(Confirmed)3 DM (diabetes Active mellitus)(Confirmed) Emesis(Confirmed) Active Fibromyalgia(Confirm Active ed) HTN Active (hypertension)(Confi rmed) Bowel Active obstruction(Confirme d) [place] (myocardial Active infarction)(Confirme d) Nausea(Confirmed) Active Pain Active assessment(Confirmed ) Emphysema of Active lung(Confirmed) Scoliosis(Confirmed) Active 1s/p abdominal incision 2DX: fibromyalgia 3lt shoulder surgery x 3 Allergies, Adverse Reactions, Alerts Substance Reaction Severity Status sulfa drugs Active iodine topical Compazine Active tetracyclines Active codeine Active doxycycline Active erythromycin Active cephalexin Active penicillin Active aspirin Darvon Active Darvocet N Percocet [place] Oil Penicillin G Benzathine,300,000 U/ML,Injection (systemic),injection Percodan [place]win Nx Doxycycline Hyclate,100 MG,Oral (systemic),capsule Tetracycline Hydrochloride,100 MG,Oral (systemic),capsule Compazine Erythromycin,Miscellaneous Routes,compounding Aspirin,800 MG,Oral (systemic),extended-release tablet Iodine,Miscellaneous Routes,granules castor oil Active mineral oil Active Keflex Active Zithromax Active Percocet Active Percodan Active Talwin Active Darvocet N Active Levaquin Active Compazine Active Darvon Active Lyrica Active Adhesive Tape Active traMADol Active OxyCONTIN Active Medications albuterol 0.083% inhalation solution 2.5 mg=3 ml, INHALATION, Q6H, PRN Wheezing or cough, # 60 ea, 0 Refill(s), Pharm acy: [id number] Start Date: 02/09/18 Status: Ordered Cipro 500 mg oral tablet 500 mg=1 tab, PO, Q12H, X 5 day, # 10 tab, 0 Refill(s), [facility]acy: [id number] Start Date: 02/09/18 Stop Date: 02/14/18 Status: Ordered DuoNeb inhalation solution 3 ml, Route: INHALATION, Drug Form: SOLN, Dosing Weight 90.455, kg, Q30Min, Star t date: 02/08/18 23:30:00 CDT, Duration: 3 doses or times, Stop date: 02/09/18 0 :30:00 CDT Notes: (Same as: Duoneb) Start Date: 02/08/18 Stop Date: 02/09/18 Status: Completed Medrol 4 mg oral tablet =1 pkt, PO, ONCE, as directed on package labeling, # 21 tab, 0 Refill(s), Pharma cy: [id number] Start Date: 02/09/18 Status: Ordered ProAir HFA 90 mcg/inh inhalation aerosol with adapter 2 puff, INHALATION, Q4H, PRN for wheezing, # 9 gm, 0 Refill(s), Pharmacy: [id number] Start Date: 02/09/18 Status: Ordered Saline Flush 0.9% 10 mL, Route: IVP, Drug Form: INJ, Dosing Weight 90.455, kg, PRN, PRN Line Flush , Start date: 02/08/18 23:29:00 CDT, Duration: 30 day, Stop date: 03/10/18 23:28 :00 CDT Notes: (Same as: BD Posiflush) Start Date: 02/08/18 Stop Date: 02/09/18 Status: Discontinued Results ELECTROLYTES Most recent to 1 oldest [Reference Range]: Sodium Lvl [135-145 127 mEq/L mEq/L] *LOW* (02/08/18 11:54 PM) Potassium Lvl 4.2 mEq/L [3.5-5.1 mEq/L] (02/08/18 11:54 PM) Chloride Lvl [95-109 92 mEq/L mEq/L] *LOW* (02/08/18 11:54 PM) CO2 [24-32 mEq/L] 25 mEq/L (02/08/18 11:54 PM) AGAP [10.0-20.0 14.2 mEq/L mEq/L] (02/08/18 11:54 PM) CHEM PANEL Most recent to 1 oldest [Reference Range]: Creatinine Lvl 0.89 mg/dL [0.50-1.40 mg/dL] (02/08/18 11:54 PM) eGFR 70 mL/min/1.73m2 1 *NA* (02/08/18 11:54 PM) BUN [7-22 mg/dL] 12 mg/dL (02/08/18 11:54 PM) B/C Ratio [6-25] 13 (02/08/18 11:54 PM) Glucose Lvl [70-99 131 mg/dL mg/dL] *HI* (02/08/18 11:54 PM) Total Protein 7.9 g/dL [6.4-8.4 g/dL] (02/08/18 11:54 PM) Albumin Lvl [3.5-5.0 3.9 g/dL g/dL] (02/08/18 11:54 PM) Globulin [2.7-4.2 4.0 g/dL g/dL] (02/08/18 11:54 PM) A/G Ratio [0.7-1.6] 1.0 (02/08/18 11:54 PM) Calcium Lvl 8.8 mg/dL [8.5-10.5 mg/dL] (02/08/18 11:54 PM) ALT [0-65 unit/L] 34 unit/L (02/08/18 11:54 PM) AST [0-37 unit/L] 18 unit/L (02/08/18 11:54 PM) Alk Phos [39-136 114 unit/L unit/L] (02/08/18 11:54 PM) Bili Total [0.2-1.3 0.2 mg/dL mg/dL] (02/08/18 11:54 PM) 1Result Comment: The eGFR is calculated using [...] tiplied by the estimated BMI. CARDIAC ENZYMES Most recent to 1 oldest [Reference Range]: Total CK [12-191 156 unit/L unit/L] (02/08/18 11:54 PM) CK MB [0.5-3.6 3.6 ng/mL ng/mL] (02/08/18 11:54 PM) CK MB Index 2.3 [0.0-2.5] (02/08/18 11:54 PM) Troponin-I <0.02 ng/mL [0.00-0.40 ng/mL] (02/08/18 11:54 PM) BNP [<=100 pg/mL] 21 pg/mL (02/08/18 11:54 PM) HEMATOLOGY Most recent to 1 oldest [Reference Range]: WBC [3.7-10.4 K/CMM] 15.8 K/CMM *HI* (02/08/18 11:54 PM) RBC [4.20-5.40 3.76 M/CMM M/CMM] *LOW* (02/08/18 11:54 PM) Hgb [12.0-16.0 g/dL] 11.3 g/dL *LOW* (02/08/18 11:54 PM) Hct [36.0-48.0 %] 34.0 % *LOW* (02/08/18 11:54 PM) MCV [80.0-98.0 fL] 90.4 fL (02/08/18 11:54 PM) MCH [27.0-31.0 pg] 30.0 pg (02/08/18 11:54 PM) MCHC [32.0-36.0 33.1 g/dL g/dL] (02/08/18 11:54 PM) RDW [11.5-14.5 %] 13.1 % (02/08/18 11:54 PM) MPV [7.4-10.4 fL] 6.5 fL *LOW* (02/08/18 11:54 PM) Platelet [133-450 370 K/CMM K/CMM] (02/08/18 11:54 PM) Segs [45.0-75.0 %] 92.9 % *HI* (02/08/18 11:54 PM) Lymphocytes 4.4 % [20.0-40.0 %] *LOW* (02/08/18 11:54 PM) Monocytes [2.0-12.0 2.6 % %] (02/08/18 11:54 PM) Basophils [0.0-1.0 0.1 % %] (02/08/18 11:54 PM) Segs-Bands # 14.7 K/CMM [1.5-8.1 K/CMM] *HI* (02/08/18 11:54 PM) Lymphocytes # 0.7 K/CMM [1.0-5.5 K/CMM] *LOW* (02/08/18 11:54 PM) Monocytes # [0.0-0.8 0.4 K/CMM K/CMM] (02/08/18 11:54 PM) PT [12.0-14.7 12.1 seconds seconds] (02/08/18 11:54 PM) INR [0.85-1.17] 0.90 (02/08/18 11:54 PM) PTT [22.9-35.8 29.2 seconds seconds] (02/08/18 11:54 PM) Immunizations No data available for this section [...] 20; Started at age: 35.0; entered on: 02/09/18 Assessment and Plan No data available for this section
--- OUTSIDE RECORDS SUMMARY | 2018-12-02 15:24 | XMS REPORT | Summary of Care ---
Author Author [facility] Organization [facility] Address Unknown Phone Unavailable Encounter GAEL Tol[place](CLEMENTE) [id number] Date(s): 05/07/17 - 05/07/17 [facility] [address] [place] [address]- [phone] Discharge Diagnosis: Uncontrolled hypertension Discharge Diagnosis: Dyspnea, unspecified Discharge Disposition: Home or Self Care Attending Physician: Margarito Arriola MD Vital Signs 1 2 3 Most recent to oldest [Reference Range]: 170.18 cm (05/07/17 2:36 AM) Height 98.4 DegF (05/07/17 2:36 AM) Temperature Oral [96.4-99.1 DegF] 175/86 mmHg *HI* (05/07/17 2:00 PM) 117/59 mmHg (05/07/17 11:00 AM) 160/74 mmHg *HI* (05/07/17 9:00 AM) Blood Pressure [90-140/60-90 mmHg] 18 BRMIN (05/07/17 2:00 PM) 16 BRMIN (05/07/17 11:00 AM) 16 BRMIN (05/07/17 9:00 AM) Respiratory Rate [14-20 BRMIN] 86 bpm (05/07/17 11:00 AM) 88 bpm (05/07/17 9:00 AM) 85 bpm (05/07/17 7:33 AM) Peripheral Pulse Rate [60-100 bpm] 71.818 kg (05/07/17 2:36 AM) Weight 24.8 m2 (05/07/17 2:36 AM) Body Mass Index Problem List Condition Effective Dates Status Health Status Informant Acute Active pain(Confirmed)1 Angina Resolved pectoris(Confirmed) Bronchitis, Active chronic(Confirmed) Chronic Active pain(Confirmed)2 COPD (chronic Active obstructive pulmonary disease)(Confirmed) Degenerative disc Resolved disease at L5-S1 level(Confirmed) Shoulder Resolved disorder(Confirmed)3 DM (diabetes Active mellitus)(Confirmed) Emesis(Confirmed) Active Fibromyalgia(Confirm Resolved ed) HTN Active (hypertension)(Confi rmed) Bowel Resolved obstruction(Confirme d) [place] (myocardial Resolved infarction)(Confirme d) Nausea(Confirmed) Active Pain Active assessment(Confirmed ) Scoliosis(Confirmed) Resolved 1s/p abdominal incision 2DX: fibromyalgia 3lt shoulder surgery x 3 Allergies, Adverse Reactions, Alerts Substance Reaction Severity Status Adhesive Tape Active aspirin Iodine,Miscellaneous Routes,granules Active Aspirin,800 MG,Oral (systemic),extended-release tablet Erythromycin,Miscellaneous Routes,compounding Compazine Tetracycline Hydrochloride,100 MG,Oral (systemic),capsule Doxycycline Hyclate,100 MG,Oral (systemic),capsule [place] Nx Percodan Penicillin G Benzathine,300,000 U/ML,Injection (systemic),injection [place] Oil Percocet Darvocet N Darvon castor oil Active cephalexin Active codeine Active Compazine Active Darvocet N Active Darvon Active doxycycline Active erythromycin Active iodine topical Compazine Active Keflex Active Levaquin Active Lyrica Active mineral oil Active OxyCONTIN Active penicillin Active Percocet Active Percodan Active sulfa drugs Active Talwin Active tetracyclines Active traMADol Active Zithromax Active Medications hydrALAZINE 20 mg, 1 mL, Route: IVP, Drug form: INJ, ONCE, Dosing Weight 71.818, kg, Priorit y: STAT, Start date: 05/07/17 3:24:00 CDT, Stop date: 05/07/17 3:24:00 CDT Notes: (Same as: Apresoline)Push over 5 minutes Start Date: 05/07/17 Stop Date: 05/07/17 Status: Completed Results ELECTROLYTES Most recent to 1 oldest [Reference Range]: Sodium Lvl [135-145 132 mEq/L mEq/L] *LOW* (05/07/17 3:58 AM) Potassium Lvl 4.0 mEq/L [3.5-5.1 mEq/L] (05/07/17 3:58 AM) Chloride Lvl [95-109 96 mEq/L mEq/L] (05/07/17 3:58 AM) CO2 [24-32 mEq/L] 28 mEq/L (05/07/17 3:58 AM) AGAP [10.0-20.0 12.0 mEq/L mEq/L] (05/07/17 3:58 AM) CHEM PANEL Most recent to 1 oldest [Reference Range]: Creatinine Lvl 0.71 mg/dL [0.50-1.40 mg/dL] (05/07/17 3:58 AM) eGFR 93 mL/min/1.73m2 1 *NA* (05/07/17 3:58 AM) BUN [7-22 mg/dL] 8 mg/dL (05/07/17 3:58 AM) B/C Ratio [6-25] 11 (05/07/17 3:58 AM) Glucose Lvl [70-99 96 mg/dL mg/dL] (05/07/17 3:58 AM) Total Protein 7.5 g/dL [6.4-8.4 g/dL] (05/07/17 3:58 AM) Albumin Lvl [3.5-5.0 4.1 g/dL g/dL] (05/07/17 3:58 AM) Globulin [2.7-4.2 3.4 g/dL g/dL] (05/07/17 3:58 AM) A/G Ratio [0.7-1.6] 1.2 (05/07/17 3:58 AM) Calcium Lvl 8.7 mg/dL [8.5-10.5 mg/dL] (05/07/17 3:58 AM) Magnesium Lvl 1.9 mg/dL [1.8-2.4 mg/dL] (05/07/17 3:58 AM) ALT [0-65 unit/L] 36 unit/L (05/07/17 3:58 AM) AST [0-37 unit/L] 24 unit/L (05/07/17 3:58 AM) Alk Phos [39-136 121 unit/L unit/L] (05/07/17 3:58 AM) Bili Total [0.2-1.3 0.4 mg/dL mg/dL] (05/07/17 3:58 AM) 1Result Comment: The eGFR is calculated using [...] 1 oldest [Reference Range]: Total CK [12-191 185 unit/L unit/L] (05/07/17 3:58 AM) CK MB [0.5-3.6 3.6 ng/mL ng/mL] (05/07/17 3:58 AM) CK MB Index 1.9 [0.0-2.5] (05/07/17 3:58 AM) Troponin-I <0.02 ng/mL [0.00-0.40 ng/mL] (05/07/17 3:58 AM) BNP [<=100 pg/mL] 72 pg/mL (05/07/17 3:58 AM) URINE AND STOOL Most recent to 1 oldest [Reference Range]: UA Turbidity [Clear] Clear (05/07/17 3:58 AM) UA Color [Yellow] Light Yellow *NA* (05/07/17 3:58 AM) UA pH [5.0-8.0] 7.0 (05/07/17 3:58 AM) UA Spec Grav 1.002 [<=1.030] (05/07/17 3:58 AM) UA Glucose [Negative Negative mg/dL mg/dL] *NA* (05/07/17 3:58 AM) UA Blood [Negative] Negative (05/07/17 3:58 AM) UA Ketones [Negative Negative mg/dL mg/dL] *NA* (05/07/17 3:58 AM) UA Protein [Negative Negative mg/dL mg/dL] (05/07/17 3:58 AM) UA Urobilinogen <=1.0 mg/dL [0.1-1.0 mg/dL] *NA* (05/07/17 3:58 AM) UA Bili [Negative] Negative *NA* (05/07/17 3:58 AM) UA Leuk Est Small [Negative] *ABN* (05/07/17 3:58 AM) UA Nitrite Negative [Negative] (05/07/17 3:58 AM) UA WBC [0-5 /HPF] 2 /HPF (05/07/17 3:58 AM) UA RBC [0-2 /HPF] <1 /HPF (05/07/17 3:58 AM) UA Bacteria [None Occasional /HPF Seen /HPF] *NA* (05/07/17 3:58 AM) UA Sq Epi [Few /LPF] Occasional /LPF *NA* (05/07/17 3:58 AM) HEMATOLOGY Most recent to 1 oldest [Reference Range]: WBC [3.7-10.4 K/CMM] 7.2 K/CMM (05/07/17 3:58 AM) RBC [4.20-5.40 3.77 M/CMM M/CMM] *LOW* (05/07/17 3:58 AM) Hgb [12.0-16.0 g/dL] 11.7 g/dL *LOW* (05/07/17 3:58 AM) Hct [36.0-48.0 %] 34.1 % *LOW* (05/07/17 3:58 AM) MCV [80.0-98.0 fL] 90.3 fL (05/07/17 3:58 AM) MCH [27.0-31.0 pg] 31.1 pg *HI* (05/07/17 3:58 AM) MCHC [32.0-36.0 34.4 g/dL g/dL] (05/07/17 3:58 AM) RDW [11.5-14.5 %] 13.6 % (05/07/17 3:58 AM) Platelet [133-450 442 K/CMM K/CMM] (05/07/17 3:58 AM) MPV [7.4-10.4 fL] 6.4 fL *LOW* (05/07/17 3:58 AM) Segs [45.0-75.0 %] 79.7 % *HI* (05/07/17 3:58 AM) Lymphocytes 12.3 % [20.0-40.0 %] *LOW* (05/07/17 3:58 AM) Monocytes [2.0-12.0 6.3 % %] (05/07/17 3:58 AM) Eosinophils [0.0-4.0 1.1 % %] (05/07/17 3:58 AM) Basophils [0.0-1.0 0.6 % %] (05/07/17 3:58 AM) Segs-Bands # 5.8 K/CMM [1.5-8.1 K/CMM] (05/07/17 3:58 AM) Lymphocytes # 0.9 K/CMM [1.0-5.5 K/CMM] *LOW* (05/07/17 3:58 AM) Monocytes # [0.0-0.8 0.5 K/CMM K/CMM] (05/07/17 3:58 AM) Eosinophils # 0.1 K/CMM [0.0-0.5 K/CMM] (05/07/17 3:58 AM) Immunizations No data available for this section Procedures Procedure Date Related Diagnosis Body Site Appendectomy Cholecystectomy Excision of hemorrhoid(s) Hysterectomy Partial repair of rotator cuff Partial resection of colon Repair of nerve Repair of shoulder Tonsillectomy and adenoidectomy Social History Social History Type Response Substance Abuse Use: None. Alcohol Never Smoking Status Current every day smoker; Type: Cigarettes; Tobacco use per day: 4; Number of years: 20; Started at age: 35.0; Ready to change: No; Concerns about tobacco use in household: No; Lives with someone who smokes; Exposure to Tobacco Smoke smoker; Cigarette Smoking Last 365 Days Yes; Reg Smoking Cessation Counseling Yes Assessment and Plan No data available for this section
--- OUTSIDE RECORDS SUMMARY | 2018-12-02 15:24 | XMS REPORT | Summary of Care ---
Author Author [facility] Organization [facility] Address Unknown Phone Unavailable Encounter GAEL [place](CLEMENTE) [id number] Date(s): 04/14/17 - 04/16/17 [facility] [address] [place] [address]- Discharge Disposition: Home or Self Care Attending Physician: Jesica Bowles MD Admitting Physician: Jesica Bowles MD Vital Signs 1 2 3 Most recent to oldest [Reference Range]: 165.1 cm (04/15/17 3:30 AM) 170.18 cm (04/14/17 10:19 PM) Height 74 kg (04/16/17 4:05 AM) Current Weight 96.6 DegF (04/16/17 4:48 PM) 96.7 DegF (04/16/17 12:12 PM) 97.4 DegF (04/16/17 7:20 AM) Temperature Oral [96.4-99.1 DegF] 155/71 mmHg *HI* (04/16/17 4:48 PM) 150/77 mmHg *HI* (04/16/17 3:21 PM) 112/72 mmHg (04/16/17 12:12 PM) Blood Pressure [90-140/60-90 mmHg] 16 BRMIN (04/16/17 4:48 PM) 16 BRMIN (04/16/17 12:12 PM) 16 BRMIN (04/16/17 7:20 AM) Respiratory Rate [14-20 BRMIN] 71 bpm (04/16/17 4:48 PM) 70 bpm (04/16/17 12:12 PM) 74 bpm (04/16/17 7:20 AM) Peripheral Pulse Rate [60-100 bpm] 75 kg (04/15/17 3:30 AM) 68.182 kg (04/14/17 10:19 PM) Weight 27.51 m2 (04/15/17 3:30 AM) 23.54 m2 (04/14/17 10:19 PM) Body Mass Index Problem List Condition Effective Dates Status Health Status Informant Acute Active pain(Confirmed)1 Angina Resolved pectoris(Confirmed) Bronchitis, Active chronic(Confirmed) Chronic Active pain(Confirmed)2 COPD (chronic Active obstructive pulmonary disease)(Confirmed) Degenerative disc Resolved disease at L5-S1 level(Confirmed) Shoulder Resolved disorder(Confirmed)3 DM (diabetes Active mellitus)(Confirmed) Emesis(Confirmed) Active Fibromyalgia(Confirm Resolved ed) HTN Active (hypertension)(Confi rmed) Bowel Resolved obstruction(Confirme d) VT (myocardial Resolved infarction)(Confirme d) Nausea(Confirmed) Active Pain Active assessment(Confirmed ) Scoliosis(Confirmed) Resolved 1s/p abdominal incision 2DX: fibromyalgia 3lt shoulder surgery x 3 Allergies, Adverse Reactions, Alerts Substance Reaction Severity Status Adhesive Tape Active aspirin Iodine,Miscellaneous Routes,granules Active Aspirin,800 MG,Oral (systemic),extended-release tablet Erythromycin,Miscellaneous Routes,compounding Compazine Tetracycline Hydrochloride,100 MG,Oral (systemic),capsule Doxycycline Hyclate,100 MG,Oral (systemic),capsule Talwin Nx Percodan Penicillin G Benzathine,300,000 U/ML,Injection (systemic),injection [place]ettigrew Oil Percocet Darvocet N Darvon castor oil Active cephalexin Active codeine Active Compazine Active Darvocet N Active Darvon Active doxycycline Active erythromycin Active iodine topical Compazine Active Keflex Active Levaquin Active Lyrica Active mineral oil Active OxyCONTIN Active penicillin Active Percocet Active Percodan Active sulfa drugs Active Talwin Active tetracyclines Active traMADol Active Zithromax Active Medications Benadryl 25 mg, 1 tab, Route: PO, Drug form: TAB, TID, Dosing Weight 68.182, kg, PRN Itch ing, Start date: 04/15/17 0:49:00 CDT, Duration: 30 day, Stop date: 05/15/17 0:4 8:00 CDT Start Date: 04/15/17 Stop Date: 04/16/17 Status: Discontinued Benicar 20 mg, 1 tab, Route: PO, Drug form: TAB, BID, Dosing Weight 75, kg, Start date: 04/15/17 9:00:00 CDT, Duration: 30 day, Stop date: 05/14/17 21:00:00 CDT Start Date: 04/15/17 Stop Date: 04/16/17 Status: Discontinued Dextrose 50% Syringe 25 gm, 50 mL, Route: IVP, Drug Form: INJ, Dosing Weight 68.182, kg, PRN, PRN Blo od Glucose Results, Start date: 04/15/17 0:50:00 CDT, Duration: 30 day, Stop [place] e: 05/15/17 0:49:00 CDT Start Date: 04/15/17 Stop Date: 04/16/17 Status: Discontinued Dextrose 50% Syringe 12.5 gm, 25 mL, Route: IVP, Drug Form: INJ, Dosing Weight 68.182, kg, PRN, PRN B lood Glucose Results, Start date: 04/15/17 0:50:00 CDT, Duration: 30 day, Stop d ate: 05/15/17 0:49:00 CDT Start Date: 04/15/17 Stop Date: 04/16/17 Status: Discontinued Dilaudid 4 mg, 2 tab, Route: PO, Drug form: TAB, Q8H, Dosing Weight 75, kg, PRN Pain Scor e 7-10, Start date: 04/16/17 10:53:00 CDT, Duration: 30 day, Stop date: 05/16/17 10:52:00 CDT Notes: (Same as: Dilaudid) Start Date: 04/16/17 Stop Date: 04/16/17 Status: Discontinued Dilaudid 4 mg, 2 tab, Route: PO, Drug form: TAB, Q6H, Dosing Weight 75, kg, PRN Pain Scor e 7-10, Start date: 04/15/17 18:34:00 CDT, Duration: 30 day, Stop date: 05/15/17 18:33:00 CDT Notes: (Same as: Dilaudid) Start Date: 04/15/17 Stop Date: 04/16/17 Status: Discontinued Dilaudid 0.2 mg, 0.2 mL, Route: IVP, Drug form: INJ, Q8H, Dosing Weight 75, kg, PRN Pain Score 7-10, Start date: 04/15/17 14:15:00 CDT, Stop date: 05/15/17 14:14:00 CDT Notes: Same as: Dilaudid Start Date: 04/15/17 Stop Date: 04/16/17 Status: Discontinued docusate-senna 50 mg-8.6 mg oral tablet 1 tab, Route: PO, Drug Form: TAB, Dosing Weight 68.182, kg, BID, hold for lose B Ms, Start date: 04/15/17 9:00:00 CDT, Duration: 30 day, Stop date: 05/14/17 17:0 0:00 CDT Notes: (Same as Senokot-S) Equiv. to Tabitha-Colace. Start Date: 04/15/17 Stop Date: 04/16/17 Status: Discontinued DuoNeb inhalation solution 3 mL, Route: INHALATION, Drug Form: SOLN, Dosing Weight 75, kg, RQID, Start date : 04/15/17 11:00:00 CDT, Duration: 30 day, Stop date: 05/15/17 7:00:00 CDT Notes: (Same as: Duoneb) Start Date: 04/15/17 Stop Date: 04/16/17 Status: Discontinued enalaprilat 0.625 mg, 0.5 mL, Route: IV, Drug form: INJ, Q6Hnow, Dosing Weight 75, kg, Start date: 04/15/17 9:00:00 CDT, Duration: 30 day, Stop date: 05/15/17 3:00:00 CDT Notes: (Same as: Vasotec-IV) Start Date: 04/15/17 Stop Date: 04/16/17 Status: Discontinued Fleet Enema 133 mL, Route: AK, Drug Form: KONRAD, Dosing Weight 75, kg, Q8H, NOW, Start date: 04/15/17 8:31:00 CDT, Duration: 2 doses or times, Stop date: 04/15/17 16:00:00 C DT Start Date: 04/15/17 Stop Date: 04/15/17 Status: Completed glucagon 1 mg, Route: IM, Drug form: PDR/INJ, PRN, Dosing Weight 68.182, kg, PRN Blood Gl ucose Results, Start date: 04/15/17 0:50:00 CDT, Duration: 30 day, Stop date: 0:49:00 CDT Start Date: 04/15/17 Stop Date: 04/16/17 Status: Discontinued heparin 5000 units/mL injectable solution 5,000 unit, 1 mL, Route: SUB-Q, Drug form: INJ, Q8H, Dosing Weight 68.182, kg, S tart date: 04/15/17 8:00:00 CDT, Duration: 30 day, Stop date: 05/15/17 0:00:00 C DT Notes: porcine heparin Start Date: 04/15/17 Stop Date: 04/16/17 Status: Discontinued hydrALAZINE 10 mg, 0.5 mL, Route: IV, Drug form: INJ, Q6H, Dosing Weight 68.182, kg, PRN Hyp ertension, Start date: 04/15/17 3:28:00 CDT, Duration: 30 day, Stop date: 3:27:00 CDT Notes: (Same as: Apresoline)Push over 5 minutes Start Date: 04/15/17 Stop Date: 04/16/17 Status: Discontinued hydrALAZINE 10 mg, 0.5 mL, Route: IVP, Drug form: INJ, Q4H, Dosing Weight 68.182, kg, PRN El evated BP, Start date: 04/15/17 0:49:00 CDT, Stop date: 04/16/17 7:08:00 CDT, SB P > 160, DBP >110 Notes: (Same as: Apresoline)Push over 5 minutes Start Date: 04/15/17 Stop Date: 04/16/17 Status: Completed hydrALAZINE 10 mg, 0.5 mL, Route: IVP, Drug form: INJ, ONCE, Dosing Weight 68.182, kg, Prior ity: STAT, Start date: 04/15/17 0:58:00 CDT, Stop date: 04/15/17 0:58:00 CDT Notes: (Same as: Apresoline)Push over 5 minutes Start Date: 04/15/17 Stop Date: 04/15/17 Status: Completed hydrALAZINE 25 mg oral tablet 25 mg, 1 tab, Route: PO, Drug form: TAB, QID, Dosing Weight 68.182, kg, Priority : NOW, Start date: 04/15/17 0:51:00 CDT, Duration: 30 day, Stop date: 05/14/17 2 1:00:00 CDT Notes: (Same as: Apresoline) May interfere w/enteral feedings Take With Food. Start Date: 04/15/17 Stop Date: 04/16/17 Status: Discontinued hydrALAZINE 25 mg oral tablet 25 mg=1 tab, PO, QID, # 120 tab, 0 Refill(s), Pharmacy: [id number] Start Date: 04/16/17 Stop Date: 04/16/17 Status: Discontinued hydrochlorothiazide-triamterene 25 mg-37.5 mg oral tablet 1 tab, PO, Daily, PRN Edema, 0 Refill(s) Start Date: 04/15/17 Stop Date: 04/16/17 Status: Discontinued insulin aspart 4 unit, 0.04 mL, Route: SUB-Q, Drug form: SOLN, TID-Before Meals, Dosing Weight 68.182, kg, PRN Blood Glucose Results, Start date: 04/15/17 0:50:00 CDT, Duratio n: 30 day, Stop date: 05/15/17 0:49:00 CDT Notes: Roll in palms of hands gently; Do not shake vigorously. (Same as: Julia Samuel)"single patient use only"WASTE: F/P - Black; E - Municipal Trash Bin Stable f or 28 days at room temperature.Expires in days from Date Start Date: 04/15/17 Stop Date: 04/16/17 Status: Discontinued insulin aspart 2 unit, 0.02 mL, Route: SUB-Q, Drug form: SOLN, TID-Before Meals, Dosing Weight 68.182, kg, PRN Blood Glucose Results, Start date: 04/15/17 0:50:00 CDT, Duratio n: 30 day, Stop date: 05/15/17 0:49:00 CDT Notes: Roll in palms of hands gently; Do not shake vigorously. (Same as: Julia Samuel)"single patient use only"WASTE: F/P - Black; E - Municipal Trash Bin Stable f or 28 days at room temperature.Expires in days from Date Start Date: 04/15/17 Stop Date: 04/16/17 Status: Discontinued insulin aspart 5 unit, 0.05 mL, Route: SUB-Q, Drug form: SOLN, TID-Before Meals, Dosing Weight 68.182, kg, PRN Blood Glucose Results, Start date: 04/15/17 0:50:00 CDT, Duratio n: 30 day, Stop date: 05/15/17 0:49:00 CDT Notes: Roll in palms of hands gently; Do not shake vigorously. (Same as: Julia Samuel)"single patient use only"WASTE: F/P - Black; E - Municipal Trash Bin Stable f or 28 days at room temperature.Expires in days from Date Start Date: 04/15/17 Stop Date: 04/16/17 Status: Discontinued insulin aspart 3 unit, 0.03 mL, Route: SUB-Q, Drug form: SOLN, TID-Before Meals, Dosing Weight 68.182, kg, PRN Blood Glucose Results, Start date: 04/15/17 0:50:00 CDT, Duratio n: 30 day, Stop date: 05/15/17 0:49:00 CDT Notes: Roll in palms of hands gently; Do not shake vigorously. (Same as: Julia Samuel)"single patient use only"WASTE: F/P - Black; E - Municipal Trash Bin Stable f or 28 days at room temperature.Expires in days from Date Start Date: 04/15/17 Stop Date: 04/16/17 Status: Discontinued insulin aspart 3 unit, 0.03 mL, Route: SUB-Q, Drug form: SOLN, Bedtime, Dosing Weight 68.182, k g, PRN Blood Glucose Results, Start date: 04/15/17 0:50:00 CDT, Duration: 30 day , Stop date: 05/15/17 0:49:00 CDT Notes: Roll in palms of hands gently; Do not shake vigorously. (Same as: NovoLO G)"single patient use only"WASTE: F/P - Black; E - Municipal Trash Bin Stable f or 28 days at room temperature.Expires in days from Date Start Date: 04/15/17 Stop Date: 04/16/17 Status: Discontinued insulin aspart 4 unit, 0.04 mL, Route: SUB-Q, Drug form: SOLN, Bedtime, Dosing Weight 68.182, k g, PRN Blood Glucose Results, Start date: 04/15/17 0:50:00 CDT, Duration: 30 day , Stop date: 05/15/17 0:49:00 CDT Notes: Roll in palms of hands gently; Do not shake vigorously. (Same as: Julia Samuel)"single patient use only"WASTE: F/P - Black; E - Municipal Trash Bin Stable f or 28 days at room temperature.Expires in days from Date Start Date: 04/15/17 Stop Date: 04/16/17 Status: Discontinued insulin aspart 2 unit, 0.02 mL, Route: SUB-Q, Drug form: SOLN, Bedtime, Dosing Weight 68.182, k g, PRN Blood Glucose Results, Start date: 04/15/17 0:50:00 CDT, Duration: 30 day , Stop date: 05/15/17 0:49:00 CDT Notes: Roll in palms of hands gently; Do not shake vigorously. (Same as: Julia Samuel)"single patient use only"WASTE: F/P - Black; E - Municipal Trash Bin Stable f or 28 days at room temperature.Expires in days from Date Start Date: 04/15/17 Stop Date: 04/16/17 Status: Discontinued insulin aspart 1 unit, 0.01 mL, Route: SUB-Q, Drug form: SOLN, Bedtime, Dosing Weight 68.182, k g, PRN Blood Glucose Results, Start date: 04/15/17 0:50:00 CDT, Duration: 30 day , Stop date: 05/15/17 0:49:00 CDT Notes: Roll in palms of hands gently; Do not shake vigorously. (Same as: NovoBOGDAN G)"single patient use only"WASTE: F/P - Black; E - Municipal Trash Bin Stable f or 28 days at room temperature.Expires in days from Date Start Date: 04/15/17 Stop Date: 04/16/17 Status: Discontinued insulin aspart 1 unit, 0.01 mL, Route: SUB-Q, Drug form: SOLN, TID-Before Meals, Dosing Weight 68.182, kg, PRN Blood Glucose Results, Start date: 04/15/17 0:50:00 CDT, Duratio n: 30 day, Stop date: 05/15/17 0:49:00 CDT Notes: Roll in palms of hands gently; Do not shake vigorously. (Same as: NovoBOGDAN G)"single patient use only"WASTE: F/P - Black; E - Municipal Trash Bin Stable f or 28 days at room temperature.Expires in days from Date Start Date: 04/15/17 Stop Date: 04/16/17 Status: Discontinued Lipitor 40 mg, 1 tab, Route: PO, Drug form: TAB, QPM, Dosing Weight 75, kg, Start date: 04/15/17 16:00:00 CDT, Duration: 30 day, Stop date: 05/14/17 16:00:00 CDT Notes: (Same as: Lipitor) Start Date: 04/15/17 Stop Date: 04/16/17 Status: Discontinued meclizine 25 mg oral tablet 25 mg=1 tab, PO, QID, 0 Refill(s) Start Date: 04/15/17 Stop Date: 04/16/17 Status: Discontinued metFORMIN 500 mg, 1 tab, Route: PO, Drug form: TAB, Daily, Dosing Weight 75, kg, Start [place]: 04/15/17 9:00:00 CDT, Duration: 30 day, Stop date: 05/14/17 9:00:00 CDT Notes: (Same as: Glucophage) Take with meal Start Date: 04/15/17 Stop Date: 04/16/17 Status: Discontinued MiraLax 17 gm, 1 pkt, Route: PO, Drug form: PWDR, Daily, Dosing Weight 68.182, kg, hold for lose BMs, Start date: 04/15/17 9:00:00 CDT, Duration: 30 day, Stop date: 02/22 9:00:00 CDT Notes: Dissolve in 8 oz of water or juice.(Same as: Miralax) Start Date: 04/15/17 Stop Date: 04/15/17 Status: Canceled MiraLax 17 gm, 1 pkt, Route: PO, Drug form: PWDR, Q8H-06, Dosing Weight 68.182, kg, hold for lose BMs, Start date: 04/15/17 9:00:00 CDT, Duration: 3 day, Stop date: 07/25 6:00:00 CDT Notes: Dissolve in 8 oz of water or juice.(Same as: Miralax) Start Date: 04/15/17 Stop Date: 04/16/17 Status: Discontinued nitroglycerin 0.4 mg sublingual tablet 0.4 mg, 1 tab, Route: SL, Drug form: TAB, Q5Min, Dosing Weight 75, kg, PRN Chest Pain, Start date: 04/15/17 7:40:00 CDT, Duration: 30 day, Stop date: 05/15/17 7 :39:00 CDT Notes: (Same as:Nitroquick, Nitrostat)"Do Not Crush" Sublingual tablet Start Date: 04/15/17 Stop Date: 04/16/17 Status: Discontinued nitroglycerin 2% topical ointment 0.5 inch, Route: TOP, Drug Form: OINT, Dosing Weight 75, kg, TID, NOW, Start [place]: 04/15/17 5:15:00 CDT, Duration: 30 day, Stop date: 05/14/17 17:00:00 CDT Notes: 1 gram is approximately 1 inch of nitroglycerin ointment (20 mg NTG pe r gram) (Same as:Nitro-Bid) Start Date: 04/15/17 Stop Date: 04/16/17 Status: Discontinued NS (Bolus) IV 500 mL, 500 ml/hr, Infuse Over: 1 hr, Route: IV, 500, Drug form: INJ, ONCE, Prio rity: STAT, Dosing Weight 68.182 kg, Start date: 04/14/17 22:44:00 CDT, Duration : 1 doses or times, Stop date: 04/14/17 22:44:00 CDT Start Date: 04/14/17 Stop Date: 04/14/17 Status: Completed NS (Bolus) IV 500 mL, 500 ml/hr, Infuse Over: 1 hr, Route: IV, ONCE, Priority: STAT, Dosing We ight 68.182 kg, Start date: 04/15/17 0:36:00 CDT, Duration: 1 doses or times, St op date: 04/15/17 0:36:00 CDT Start Date: 04/15/17 Stop Date: 04/15/17 Status: Discontinued Pepcid 20 mg, 2 mL, Route: IVP, Drug form: INJ, Q12H, Dosing Weight 68.182, kg, Priorit y: NOW, Start date: 04/15/17 2:01:00 CDT, Duration: 30 day, Stop date: 05/14/17 21:00:00 CDT Notes: (Same as: Pepcid)Can be dilute in 5-10cc NS IVP: Slow IV push over at le ast 2 minutes. Start Date: 04/15/17 Stop Date: 04/16/17 Status: Discontinued Plavix 75 mg, 1 tab, Route: PO, Drug form: TAB, Daily, Dosing Weight 75, kg, Start date : 04/15/17 9:00:00 CDT, Duration: 30 day, Stop date: 05/14/17 9:00:00 CDT Notes: (Same As: Plavix) Start Date: 04/15/17 Stop Date: 04/16/17 Status: Discontinued polyethylene glycol 3350 oral powder for reconstitution 17 gm, PO, BID, PRN Constipation, dissolve in water or juice. Hold for 1 day if diarrhea, X 30 day, # 1020 gm, 0 Refill(s), Pharmacy: [id number] Start Date: 04/16/17 Stop Date: 05/16/17 Status: Ordered Protonix 40 mg, 1 tab, Route: PO, Drug form: ECTAB, BID-Meals, Dosing Weight 68.182, kg, Start date: 04/15/17 8:00:00 CDT, Duration: 30 day, Stop date: 05/14/17 17:00:00 CDT Notes: Tablet should not be chewed or crushed.(Same as: Protonix) Start Date: 04/15/17 Stop Date: 04/16/17 Status: Discontinued Restasis 0.05% ophthalmic emulsion 1 drp, Route: BOTH EYES, BID, Drug form: DROP, Start date: 04/15/17 9:00:00 CDT, Duration: 30 day, Stop date: 05/14/17 21:00:00 CDT Notes: (Same as: Restasis) Start Date: 04/15/17 Stop Date: 04/16/17 Status: Discontinued Saline Flush 0.9% 10 mL, Route: IVP, Drug Form: INJ, Dosing Weight 68.182, kg, PRN, PRN Line Flush , Start date: 04/14/17 22:26:00 CDT, Duration: 30 day, Stop date: 05/14/17 22:25 :00 CDT Notes: (Same as: BD Posiflush) Start Date: 04/14/17 Stop Date: 04/16/17 Status: Discontinued senna 8.6 mg, 1 tab, Route: PO, Drug Form: TAB, Dosing Weight 68.182, kg, Daily, PRN C onstipation, Start date: 04/15/17 0:49:00 CDT, Duration: 30 day, Stop date: 03/24 0:48:00 CDT Notes: (Same as: Senokot) Start Date: 04/15/17 Stop Date: 04/16/17 Status: Discontinued sodium biphosphate-sodium phosphate 133 mL, Route: AK, Drug Form: KONRAD, Dosing Weight 75, kg, ONCE, Start date: 04/24 21:00:00 CDT, Stop date: 04/15/17 21:00:00 CDT, For Constipation > 12 years, Pediatric Dosing Start Date: 04/15/17 Stop Date: 04/15/17 Status: Completed sodium chloride 0.9% 1000 ml INJ 1,000 mL 1,000 mL, Rate: 60 ml/hr, Infuse over: 16.7 hr, Route: IV, Dosing Weight 68.182 kg, Total Volume: 1,000, Start date: 04/15/17 2:00:00 CDT, Stop date: 05/15/17 1 :59:00 CDT Start Date: 04/15/17 Stop Date: 04/16/17 Status: Discontinued sodium chloride 1 gm oral tablet 1 gm, 1 tab, Route: PO, Drug form: TAB, TID-Meals, Dosing Weight 75, kg, Start d ate: 04/15/17 17:00:00 CDT, Duration: 30 day, Stop date: 05/15/17 12:00:00 CDT Start Date: 04/15/17 Stop Date: 04/16/17 Status: Discontinued Tylenol 650 mg, 2 tab, Route: PO, Drug form: TAB, QID, Dosing Weight 68.182, kg, PRN Evie n 1-3/Temp > 100.4 F, Priority: STAT, Start date: 04/15/17 0:49:00 CDT, Duration: 30 day, Stop date: 05/15/17 0:48:00 CDT Notes: Do not exceed 4 gm/day. (Same as: Tylenol) Start Date: 04/15/17 Stop Date: 04/16/17 Status: Discontinued Xanax 1 mg oral tablet 2 mg, 2 tab, Route: PO, Drug form: TAB, Bedtime, Dosing Weight 75, kg, Start [place]: 04/15/17 21:00:00 CDT, Duration: 30 day, Stop date: 05/14/17 21:00:00 CDT Notes: With food or milk(Same as: Xanax) Start Date: 04/15/17 Stop Date: 04/16/17 Status: Discontinued Zofran 4 mg, 2 mL, Route: IV, Drug form: INJ, Q4H, Dosing Weight 68.182, kg, PRN Nausea , Start date: 04/15/17 18:34:00 CDT, Duration: 30 day, Stop date: 05/15/17 18:33 :00 CDT Notes: (Same as: Zofran) MEDICATION WASTE Product Size: 4 mgProduct Was lj: ___ mg Start Date: 04/15/17 Stop Date: 04/16/17 Status: Discontinued Zofran 4 mg, 2 mL, Route: IVP, Drug form: INJ, ONCE, Dosing Weight 68.182, kg, Priority : STAT, Start date: 04/14/17 23:23:00 CDT, Stop date: 04/14/17 23:23:00 CDT Notes: (Same as: Zofran) MEDICATION WASTE Product Size: 4 mgProduct Was lj: ___ mg Start Date: 04/14/17 Stop Date: 04/14/17 Status: Completed Zofran 4 mg, 2 mL, Route: IV, Drug form: INJ, Q8H, Dosing Weight 68.182, kg, PRN Nausea , Start date: 04/15/17 0:49:00 CDT, Duration: 30 day, Stop date: 05/15/17 0:48:0 0 CDT Notes: (Same as: Zofran) MEDICATION WASTE Product Size: 4 mgProduct Was lj: ___ mg Start Date: 04/15/17 Stop Date: 04/15/17 Status: Discontinued ZyrTEC 10 mg, 1 tab, Route: PO, Drug form: TAB, Daily, Dosing Weight 75, kg, Start date : 04/15/17 9:00:00 CDT, Duration: 30 day, Stop date: 05/14/17 9:00:00 CDT Notes: (Same As: Zyrtec) Start Date: 04/15/17 Stop Date: 04/16/17 Status: Discontinued Results ELECTROLYTES 1 2 3 Most recent to oldest [Reference Range]: 125 mEq/L *LOW* (04/16/17 3:53 PM) 126 mEq/L *LOW* (04/16/17 11:28 AM) 126 mEq/L *LOW* (04/16/17 11:28 AM) Sodium Lvl [135-145 mEq/L] 3.7 mEq/L (04/16/17 3:53 PM) 3.3 mEq/L *LOW* (04/16/17 11:28 AM) 3.7 mEq/L (04/16/17 7:08 AM) Potassium Lvl [3.5-5.1 mEq/L] 90 mEq/L *LOW* (04/16/17 3:53 PM) 90 mEq/L *LOW* (04/16/17 11:28 AM) 93 mEq/L *LOW* (04/16/17 7:08 AM) Chloride Lvl [95-109 mEq/L] 26 mEq/L (04/16/17 3:53 PM) 27 mEq/L (04/16/17 11:28 AM) 24 mEq/L (04/16/17 7:08 AM) CO2 [24-32 mEq/L] 12.7 mEq/L (04/16/17 3:53 PM) 12.3 mEq/L (04/16/17 11:28 AM) 13.7 mEq/L (04/16/17 7:08 AM) AGAP [10.0-20.0 mEq/L] CHEM PANEL 1 2 3 Most recent to oldest [Reference Range]: 0.57 mg/dL (04/16/17 4:10 AM) 0.60 mg/dL (04/15/17 2:25 PM) 0.62 mg/dL (04/15/17 4:58 AM) Creatinine Lvl [0.50-1.40 mg/dL] 101 mL/min/1.73m2 1 *NA* (04/16/17 4:10 AM) 99 mL/min/1.73m2 2 *NA* (04/15/17 2:25 PM) 99 mL/min/1.73m2 3 *NA* (04/15/17 4:58 AM) eGFR 8 mg/dL (04/16/17 4:10 AM) 7 mg/dL (04/15/17 2:25 PM) 9 mg/dL (04/15/17 4:58 AM) BUN [7-22 mg/dL] 15 (04/15/17 4:58 AM) 12 (04/14/17 10:53 PM) B/C Ratio [6-25] 90 mg/dL (04/16/17 4:10 AM) 115 mg/dL *HI* (04/15/17 2:25 PM) 112 mg/dL *HI* (04/15/17 4:58 AM) Glucose Lvl [70-99 mg/dL] 8.0 g/dL (04/15/17 4:58 AM) 8.4 g/dL (04/14/17 10:53 PM) Total Protein [6.4-8.4 g/dL] 4.4 g/dL (04/15/17 4:58 AM) 4.4 g/dL (04/14/17 10:53 PM) Albumin Lvl [3.5-5.0 g/dL] 3.6 g/dL (04/15/17 4:58 AM) 4.0 g/dL (04/14/17 10:53 PM) Globulin [2.7-4.2 g/dL] 1.2 (04/15/17 4:58 AM) 1.1 (04/14/17 10:53 PM) A/G Ratio [0.7-1.6] 8.0 mg/dL *LOW* (04/16/17 4:10 AM) 8.6 mg/dL (04/15/17 2:25 PM) 9.7 mg/dL (04/15/17 4:58 AM) Calcium Lvl [8.5-10.5 mg/dL] 3.4 mg/dL (04/15/17 4:58 AM) Phosphorus [2.5-4.5 mg/dL] 1.8 mg/dL (04/16/17 4:10 AM) 1.8 mg/dL (04/15/17 4:58 AM) Magnesium Lvl [1.8-2.4 mg/dL] 28 unit/L (04/15/17 4:58 AM) 29 unit/L (04/14/17 10:53 PM) ALT [0-65 unit/L] 27 unit/L (04/15/17 4:58 AM) 27 unit/L (04/14/17 10:53 PM) AST [0-37 unit/L] 133 unit/L (04/15/17 4:58 AM) 127 unit/L (04/14/17 10:53 PM) Alk Phos [39-136 unit/L] 0.5 mg/dL (04/15/17 4:58 AM) 0.3 mg/dL (04/14/17 10:53 PM) Bili Total [0.2-1.3 mg/dL] 248 mOsm/kg *LOW* (04/15/17 4:58 AM) 244 mOsm/kg *LOW* (04/14/17 10:53 PM) Osmolality [280-300 mOsm/kg] 1Result Comment: The [...] 3 Most recent to oldest [Reference Range]: 267 unit/L *HI* (04/15/17 4:58 AM) 290 unit/L *HI* (04/14/17 10:53 PM) Total CK [12-191 unit/L] 5.3 ng/mL *HI* (04/15/17 4:58 AM) 5.1 ng/mL *HI* (04/14/17 10:53 PM) CK MB [0.5-3.6 ng/mL] 2.0 (04/15/17 4:58 AM) 1.8 (04/14/17 10:53 PM) CK MB Index [0.0-2.5] <0.02 ng/mL (04/14/17 10:53 PM) Troponin-I [0.00-0.40 ng/mL] 10 pg/mL (04/14/17 10:53 PM) BNP [<=100 pg/mL] LIPIDS 1 2 3 Most recent to oldest [Reference Range]: 1.95 *LOW* (04/15/17 4:58 AM) CHD Risk [3.90-5.80] 144 mg/dL (04/15/17 4:58 AM) Chol [<=199 mg/dL] 46 mg/dL (04/15/17 4:58 AM) Trig [<=149 mg/dL] 74 mg/dL (04/15/17 4:58 AM) HDL [>=61 mg/dL] 61 mg/dL (04/15/17 4:58 AM) LDL (Calculated) [<=99 mg/dL] 9 *NA* (04/15/17 4:58 AM) VLDL ENDOCRINOLOGY 1 2 3 Most recent to oldest [Reference Range]: 37.1 ug/dl *NA* (04/15/17 4:58 AM) Cortisol URINE CHEM 1 2 3 Most recent to oldest [Reference Range]: 67 mEq/L *NA* (04/15/17 8:50 AM) 54 mEq/L *NA* (04/14/17 10:53 PM) U Sodium 85 mEq/L *NA* (04/15/17 8:50 AM) U Chloride 308 mOsm/kg (04/15/17 8:50 AM) 304 mOsm/kg (04/14/17 10:53 PM) U Osmolality [300-800 mOsm/kg] URINE AND STOOL 1 2 3 Most recent to oldest [Reference Range]: Clear (04/14/17 11:14 PM) UA Turbidity [Clear] Light Yellow *NA* (04/14/17 11:14 PM) UA Color [Yellow] 7.0 (04/14/17 11:14 PM) UA pH [5.0-8.0] 1.009 (04/14/17 11:14 PM) UA Spec Grav [<=1.030] Negative mg/dL *NA* (04/14/17 11:14 PM) UA Glucose [Negative mg/dL] Negative (04/14/17 11:14 PM) UA Blood [Negative] Negative mg/dL *NA* (04/14/17 11:14 PM) UA Ketones [Negative mg/dL] Negative mg/dL (04/14/17 11:14 PM) UA Protein [Negative mg/dL] <=1.0 mg/dL *NA* (04/14/17 11:14 PM) UA Urobilinogen [0.1-1.0 mg/dL] Negative *NA* (04/14/17 11:14 PM) UA Bili [Negative] Negative (04/14/17 11:14 PM) UA Leuk Est [Negative] Negative (04/14/17 11:14 PM) UA Nitrite [Negative] 1 /HPF (04/14/17 11:14 PM) UA WBC [0-5 /HPF] 1 /HPF (04/14/17 11:14 PM) UA RBC [0-2 /HPF] Occasional /LPF *NA* (04/14/17 11:14 PM) UA Sq Epi [Few /LPF] 1 /LPF (04/14/17 11:14 PM) UA Hyal Cast [0-2 /LPF] Occasional /HPF *NA* (04/14/17 11:14 PM) UA Amorph Sangeetha [None Seen /HPF] Few /LPF *NA* (04/14/17 11:14 PM) UA Mucus [None Seen /LPF] HEMATOLOGY 1 2 3 Most recent to oldest [Reference Range]: 11.4 K/CMM *HI* (04/16/17 4:10 AM) 14.1 K/CMM *HI* (04/15/17 4:58 AM) 16.1 K/CMM *HI* (04/14/17 10:53 PM) WBC [3.7-10.4 K/CMM] 4.16 M/CMM *LOW* (04/16/17 4:10 AM) 4.69 M/CMM (04/15/17 4:58 AM) 4.55 M/CMM (04/14/17 10:53 PM) RBC [4.20-5.40 M/CMM] 12.5 g/dL (04/16/17 4:10 AM) 14.2 g/dL (04/15/17 4:58 AM) 13.7 g/dL (04/14/17 10:53 PM) Hgb [12.0-16.0 g/dL] 37.1 % (04/16/17 4:10 AM) 40.3 % (04/15/17 4:58 AM) 39.1 % (04/14/17 10:53 PM) Hct [36.0-48.0 %] 89.0 fL (04/16/17 4:10 AM) 85.9 fL (04/15/17 4:58 AM) 85.9 fL (04/14/17 10:53 PM) MCV [80.0-98.0 fL] 30.0 pg (04/16/17 4:10 AM) 30.3 pg (04/15/17 4:58 AM) 30.2 pg (04/14/17 10:53 PM) MCH [27.0-31.0 pg] 33.7 g/dL (04/16/17 4:10 AM) 35.3 g/dL (04/15/17 4:58 AM) 35.2 g/dL (04/14/17 10:53 PM) MCHC [32.0-36.0 g/dL] 12.9 % (04/16/17 4:10 AM) 12.6 % (04/15/17 4:58 AM) 12.7 % (04/14/17 10:53 PM) RDW [11.5-14.5 %] 347 K/CMM (04/16/17 4:10 AM) 372 K/CMM (04/15/17 4:58 AM) 353 K/CMM (04/14/17 10:53 PM) Platelet [133-450 K/CMM] 6.8 fL *LOW* (04/16/17 4:10 AM) 6.7 fL *LOW* (04/15/17 4:58 AM) 6.4 fL *LOW* (04/14/17 10:53 PM) MPV [7.4-10.4 fL] 81.9 % *HI* (04/16/17 4:10 AM) 85.6 % *HI* (04/14/17 10:53 PM) Segs [45.0-75.0 %] 9.4 % *LOW* (04/16/17 4:10 AM) 7.8 % *LOW* (04/14/17 10:53 PM) Lymphocytes [20.0-40.0 %] 8.2 % (04/16/17 4:10 AM) 5.3 % (04/14/17 10:53 PM) Monocytes [2.0-12.0 %] 0.3 % (04/16/17 4:10 AM) 1.0 % (04/14/17 10:53 PM) Eosinophils [0.0-4.0 %] 0.2 % (04/16/17 4:10 AM) 0.3 % (04/14/17 10:53 PM) Basophils [0.0-1.0 %] 9.4 K/CMM *HI* (04/16/17 4:10 AM) 13.8 K/CMM *HI* (04/14/17 10:53 PM) Segs-Bands # [1.5-8.1 K/CMM] 1.1 K/CMM (04/16/17 4:10 AM) 1.3 K/CMM (04/14/17 10:53 PM) Lymphocytes # [1.0-5.5 K/CMM] 0.9 K/CMM *HI* (04/16/17 4:10 AM) 0.9 K/CMM *HI* (04/14/17 10:53 PM) Monocytes # [0.0-0.8 K/CMM] 0.2 K/CMM (04/14/17 10:53 PM) Eosinophils # [0.0-0.5 K/CMM] 12.5 seconds (8/7/17 10:53 PM) PT [12.0-14.7 seconds] 0.91 (04/14/17 10:53 PM) INR [0.85-1.17] 35.7 seconds (04/14/17 10:53 PM) PTT [22.9-35.8 seconds] Immunizations No data [...] 365 Days Yes; Reg Smoking Cessation Counseling No Assessment and Plan Extracted from: Title: nephrology Author: Boni Sibley MD Date: 04/16/17 Attending: Jesica Bowles MDPhone: Service: Internal Medicine Code status: Full Code [Ordered] Reason for Admission: SYNCOPAL EPISODE Working DRG: MISC DISORDERS OF NUTRITION,METABOLISM,FLUIDS/ELECTROLYTES W/O [facility] Isolation: None Documented Consulting Physicians: Boni Sibley MDOffice: Service: Nephrology Allergies (24) ActiveReaction Adhesive TapeNone documented LyricaNone documented OxyCONTINNone documented ZithromaxNone documented cephalexinNone documented LevaquinNone documented traMADolNone documented KeflexNone documented mineral oilNone documented castor oilNone documented penicillinNone documented Darvocet NNone documented DarvonNone documented PercocetNone documented PercodanNone documented TalwinNone documented doxycyclineNone documented tetracyclinesNone documented erythromycinNone documented CompazineNone documented iodine topicalCompazine aspirinDarvocet N, Darvon, [place] Oil, Penicillin G Benzathine,300,000 U/ML,Injection (systemic),injection, Percodan, [place]win Nx, Doxycycline Hyclate,100 MG,Oral (systemic),capsule, Tetracycline Hydrochloride,100 MG,Oral (systemic),capsule, Compazine, Erythromycin,Miscellaneous Routes,compounding, Aspirin,800 MG,Oral (systemic),extended-release tablet, Iodine,Miscellaneous Routes,granules, Percocet sulfa drugsNone documented codeineNone documented Subjective: still nauseated Vital Signs (last 24 hrs) Last Charted Temp Oral96.7 DegF (APR 16:) Heart Rate [id number] bpm (APR 16:) Resp Rate 16 BRMIN (APR 16) SBPH 150mmHg (APR 16) DBP77 mmHg (APR 16) [id number] % (APR 16:) I&ORecordInOutBal 04/924hr Tot 884 500 384 04/824hr Tot 1112 2050 -938 Objective: Gen: Awake, NAD HEENT: PERRL, MMM, no OP exudate Neck: Supple, no JVD Lungs: Clear to auscultation, no wheezing, no crackles CV: RRR, no murmur Abdomen: soft, no distended, non tender Extremities: no edema, 2+pulses Skin: no rashes, no bruises Neuro: AOx3, no focal deficits Medications (37) Active Scheduled: (16) albuterol-ipratropium 2.5 mg-0.5 mg/3 ml PANCHO 3 mL, INHALATION, RQID ALPRAZolam 1 mg TAB 2 mg 2 tab, PO, Bedtime atorvastatin 40mg tab 40 mg 1 tab, PO, QPM cetirizine 10 mg TAB 10 mg 1 tab, PO, Daily clopidogrel 75 mg TAB 75 mg 1 tab, PO, Daily cycloSPORINE 0.05% opht 0.4 ml 1 drp, BOTH EYES, BID docusate-senna 50-8.6 mg TAB 1 tab, PO, BID enalaprilat 2.5 mg/2 ml VL 0.625 mg 0.5 mL, IV, Q6Hnow famotidine 20 mg/2 ml INJ VL 20 mg 2 mL, IVP, Q12H heparin 5000 unit/1 ml INJ VL 5,000 unit 1 mL, SUB-Q, Q8H hydrALAZINE 25 mg TAB 25 mg 1 tab, PO, QID metFORMIN 500 mg TAB 500 mg 1 tab, PO, Daily nitroglycerin 2% 1 gm pkt OIN 0.5 inch, TOP, TID pantoprazole 40 mg ECT 40 mg 1 tab, PO, BID-Meals polyethylene glycol 17 gm packet 17 gm 1 pkt, PO, Q8H-06 sodium chloride 1 gm TAB 1 gm 1 tab, PO, TID-Meals Continuous: (1) sodium chloride 0.9% 1000 ml INJ 1,000 mL 1,000 mL, IV, 60 ml/hr PRN: (20) acetaminophen 325 mg TABLET 650 mg 2 tab, PO, QID Dextrose 50% 50 ml INJ syringe 12.5 gm 25 mL, IVP, PRN Dextrose 50% 50 ml INJ syringe 25 gm 50 mL, IVP, PRN diphenhydrAMINE 25 mg Tab 25 mg 1 tab, PO, TID glucagon recombinant 1 mg PDR 1 mg, IM, PRN hydrALAZINE 20 mg/1 ml VL 10 mg 0.5 mL, IV, Q6H HYDROmorphone 2 mg TAB 4 mg 2 tab, PO, Q8H insulin aspart 100 unit/ml 3ml Pen 1 unit 0.01 mL, SUB-Q, TID-Before Meals insulin aspart 100 unit/ml 3ml Pen 2 unit 0.02 mL, SUB-Q, TID-Before Meals insulin aspart 100 unit/ml 3ml Pen 3 unit 0.03 mL, SUB-Q, TID-Before Meals insulin aspart 100 unit/ml 3ml Pen 4 unit 0.04 mL, SUB-Q, TID-Before Meals insulin aspart 100 unit/ml 3ml Pen 5 unit 0.05 mL, SUB-Q, TID-Before Meals insulin aspart 100 unit/ml 3ml Pen 1 unit 0.01 mL, SUB-Q, Bedtime insulin aspart 100 unit/ml 3ml Pen 2 unit 0.02 mL, SUB-Q, Bedtime insulin aspart 100 unit/ml 3ml Pen 3 unit 0.03 mL, SUB-Q, Bedtime insulin aspart 100 unit/ml 3ml Pen 4 unit 0.04 mL, SUB-Q, Bedtime nitroglycerin 0.4 mg TAB 25's btl 0.4 mg 1 tab, SL, Q5Min ondansetron 4 mg/2ml INJ VL 4 mg 2 mL, IV, Q4H senna 8.6 mg TAB 8.6 mg 1 tab, PO, Daily sodium chloride 0.9% 10 ml flush syr BD 10 mL, IVP, PRN Labs (Last four charted values) WBC H 11.4(APR 16)H 14.1(APR 15)H 16.1(APR 14) Hgb 12.5(APR 16)14.2(APR 15)13.7(APR 14) Hct 37.1(APR 16)40.3(APR 15)39.1(APR 14) Plt 347(APR 16)372(APR 15)353(APR 14) Na L 125(APR 16)L 126(APR 16)L 126(APR 16)L 127(APR 16) K 3.7(APR 16)L 3.3(APR 16)3.7(APR 16)L 3.4(APR 16) CO2 26(APR 16)27(APR 16)24(APR 16)24(APR 16) Cl L 90(APR 16)L 90(APR 16)L 93(APR 16)L 89(APR 16) Cr 0.57(APR 16)0.60(APR 15)0.62(APR 15)0.73(APR 14) BUN 8(APR 16)7(APR 15)9(APR 15)9(APR 14) Glucose Random 90(APR 16)H 115(APR 15)H 112(APR 15)96(APR 14) Mg 1.8(APR 16)1.8(APR 15) Phos 3.4(APR 15) Ca L 8.0(APR 16)8.6(APR 15)9.7(APR 15)9.4(APR 14) PT 12.5(APR 14) INR 0.91(APR 14) PTT 35.7(APR 14) Troponin <0.02(APR 14) CK MB H 5.3(APR 15)H 5.1(APR 14) Total CK H 267(APR 15)H 290(APR 14) Assessment & Plan: patient was seen earlier this AM. # hyponatremia: Improved with normal saline. ADH mediated. - decreased IV fluids - continue salt tabs - will recheck urine osms tomorrow to see if ADH stimulus has resolved with volume repletion. Extracted from: Title: Hospitalist H&P * Author: Jesica Bowles MD Date: 04/15/17 Impression and Plan Critical hyponatremia, likely from dehydration and volume loss Syncope, likely from above Intractable nausea and vomiting Moderate to severe constipation, likely from chronic opioid use Hypertensive urgency COPD and emphysema, without evidence of exacerbation Gastroesophageal reflux disease Congestive heart failure, unknown type Diabetes mellitus Coronary artery disease Chronic opioid dependence with morphine pain pump in place Gastroesophageal reflux disease It appears patient's constellation of symptoms could likely be from her severe constipation from her opioid use. Recommend bowel regimen and anti-emetics for supportive management. In regards to her critical hyponatremia, nephrology consultation has been ordered and they recommend normal saline at 60 mL an hour. This has been initiated. PT OT to evaluate and treat Follow [facility] panel closely, avoid aggressive correction Supportive management and pain control, patient will continue her morphine pain pump and also have as needed medications available Resume home blood pressure medications as appropriate Transthoracic echo for further evaluation of syncope along with telemetry monitoring Aggressive bowel regimen and avoid constipation Discussed with patient and family that patient can resume diet as tolerated Insulin and Accu-Cheks for diabetes PPI and H2 johnna for GERD Further management pending patient's clinical course. DVT prophylaxis: Patient will be on heparin subcu CODE STATUS: Patient is full code. Plan of care discussed with the patient and her family members at bedside all questions were answered.
--- OUTSIDE RECORDS SUMMARY | 2018-12-02 15:24 | XMS REPORT | Summary of Care ---
Author Author [facility] Organization [facility] Address Unknown Phone Unavailable Encounter GAEL [place](FIN) [id number] Date(s): 03/07/18 - 03/07/18 [facility] [address], [place], [place] [address]- [phone] Encounter Diagnosis Edema of both lower legs due to peripheral venous insufficiency (Discharge Diagnosis) - 03/07/18 Superficial thrombophlebitis of left leg (Discharge Diagnosis) - 03/07/18 Chronic hyponatremia (Discharge Diagnosis) - 03/07/18 Discharge Disposition: Home or Self Care Attending Physician: Margarito Lopez MD Vital Signs 1 2 3 Most recent to oldest [Reference Range]: 165.1 cm (03/07/18 2:49 AM) Height 98.6 DegF (03/07/18 5:30 AM) 97.6 DegF (03/07/18 2:49 AM) Temperature Oral [96.4-99.1 DegF] 145/65 mmHg *HI* (03/07/18 5:30 AM) 160/67 mmHg *HI* (03/07/18 5:00 AM) 155/69 mmHg *HI* (03/07/18 4:30 AM) Blood Pressure [90-140/60-90 mmHg] 20 BRMIN (03/07/18 2:49 AM) Respiratory Rate [14-20 BRMIN] 81 bpm (03/07/18 5:30 AM) 79 bpm (03/07/18 5:00 AM) 74 bpm (03/07/18 4:30 AM) Peripheral Pulse Rate [60-100 bpm] 88.182 kg (03/07/18 2:49 AM) Weight 32.35 m2 (03/07/18 2:49 AM) Body Mass Index Problem List Condition Effective Dates Status Health Status Informant Acute Active pain(Confirmed)1 Angina Active pectoris(Confirmed) Bronchitis, Active chronic(Confirmed) Chronic Active pain(Confirmed)2 CHF (congestive Active heart failure)(Confirmed) COPD (chronic Active obstructive pulmonary disease)(Confirmed) Degenerative disc Active disease at L5-S1 level(Confirmed) Shoulder Active disorder(Confirmed)3 DM (diabetes Active mellitus)(Confirmed) Emesis(Confirmed) Active Fibromyalgia(Confirm Active ed) HTN Active (hypertension)(Confi rmed) Bowel Active obstruction(Confirme d) [place] (myocardial Active infarction)(Confirme d) Nausea(Confirmed) Active Pain Active assessment(Confirmed ) Emphysema of Active lung(Confirmed) Scoliosis(Confirmed) Active 1s/p abdominal incision 2DX: fibromyalgia 3lt shoulder surgery x 3 Allergies, Adverse Reactions, Alerts Substance Reaction Severity Status sulfa drugs Active iodine topical Compazine Active tetracyclines Active codeine Active doxycycline Active erythromycin Active cephalexin Active penicillin Active aspirin Darvon Active Darvocet N Percocet [place] Oil Penicillin G Benzathine,300,000 U/ML,Injection (systemic),injection Percodan Talwin Nx Doxycycline Hyclate,100 MG,Oral (systemic),capsule Tetracycline Hydrochloride,100 MG,Oral (systemic),capsule Compazine Erythromycin,Miscellaneous Routes,compounding Aspirin,800 MG,Oral (systemic),extended-release tablet Iodine,Miscellaneous Routes,granules castor oil Active mineral oil Active Keflex Active Zithromax Active Percocet Active Percodan Active Talwin Active Darvocet N Active Levaquin Active Compazine Active Darvon Active Lyrica Active Adhesive Tape Active traMADol Active OxyCONTIN Active Medications Saline Flush 0.9% 10 mL, Route: IVP, Drug Form: INJ, Dosing Weight 88.182, kg, PRN, PRN Line Flush , Start date: 03/07/18 3:37:00 CDT, Duration: 30 day, Stop date: 04/06/18 3:36:0 0 CDT Notes: (Same as: BD Posiflush) Start Date: 03/07/18 Stop Date: 03/07/18 Status: Discontinued Results ELECTROLYTES Most recent to 1 oldest [Reference Range]: Sodium Lvl [135-145 125 mEq/L mEq/L] *LOW* (03/07/18 4:31 AM) Potassium Lvl 4.3 mEq/L [3.5-5.1 mEq/L] (03/07/18 4:31 AM) Chloride Lvl [95-109 85 mEq/L mEq/L] *LOW* (03/07/18 4:31 AM) CO2 [24-32 mEq/L] 28 mEq/L (03/07/18 4:31 AM) AGAP [10.0-20.0 16.3 mEq/L mEq/L] (03/07/18 4:31 AM) CHEM PANEL Most recent to 1 oldest [Reference Range]: Creatinine Lvl 0.87 mg/dL [0.50-1.40 mg/dL] (03/07/18 4:31 AM) eGFR 72 mL/min/1.73m2 1 *NA* (03/07/18 4:31 AM) BUN [7-22 mg/dL] 12 mg/dL (03/07/18 4:31 AM) B/C Ratio [6-25] 14 (03/07/18 4:31 AM) Glucose Lvl [70-99 88 mg/dL mg/dL] (03/07/18 4:31 AM) Total Protein 6.9 g/dL [6.4-8.4 g/dL] (03/07/18 4:31 AM) Albumin Lvl [3.5-5.0 3.5 g/dL g/dL] (03/07/18 4:31 AM) Globulin [2.7-4.2 3.4 g/dL g/dL] (03/07/18 4:31 AM) A/G Ratio [0.7-1.6] 1.0 (03/07/18 4:31 AM) Calcium Lvl 9.0 mg/dL [8.5-10.5 mg/dL] (03/07/18 4:31 AM) ALT [0-65 unit/L] 30 unit/L (03/07/18 4:31 AM) AST [0-37 unit/L] 18 unit/L (03/07/18 4:31 AM) Alk Phos [39-136 111 unit/L unit/L] (03/07/18 4:31 AM) Bili Total [0.2-1.3 0.4 mg/dL mg/dL] (03/07/18 4:31 AM) 1Result Comment: The eGFR is calculated [...] 1 oldest [Reference Range]: Total CK [12-191 163 unit/L unit/L] (03/07/18 4:31 AM) Troponin-I <0.02 ng/mL [0.00-0.40 ng/mL] (03/07/18 4:31 AM) HEMATOLOGY Most recent to 1 oldest [Reference Range]: WBC [3.7-10.4 K/CMM] 14.2 K/CMM *HI* (03/07/18 4:31 AM) RBC [4.20-5.40 3.27 M/CMM M/CMM] *LOW* (03/07/18 4:31 AM) Hgb [12.0-16.0 g/dL] 10.0 g/dL *LOW* (03/07/18 4:31 AM) Hct [36.0-48.0 %] 29.7 % *LOW* (03/07/18 4:31 AM) MCV [80.0-98.0 fL] 90.8 fL (03/07/18 4:31 AM) MCH [27.0-31.0 pg] 30.6 pg (03/07/18 4:31 AM) MCHC [32.0-36.0 33.7 g/dL g/dL] (03/07/18 4:31 AM) RDW [11.5-14.5 %] 12.0 % (03/07/18 4:31 AM) MPV [7.4-10.4 fL] 6.5 fL *LOW* (03/07/18 4:31 AM) Platelet [133-450 426 K/CMM K/CMM] (03/07/18 4:31 AM) Segs [45.0-75.0 %] 83.0 % *HI* (03/07/18 4:31 AM) Lymphocytes 10.2 % [20.0-40.0 %] *LOW* (03/07/18 4:31 AM) Monocytes [2.0-12.0 4.3 % %] (03/07/18 4:31 AM) Eosinophils [0.0-4.0 2.4 % %] (03/07/18 4:31 AM) Basophils [0.0-1.0 0.1 % %] (03/07/18 4:31 AM) Segs-Bands # 11.9 K/CMM [1.5-8.1 K/CMM] *HI* (03/07/18 4:31 AM) Lymphocytes # 1.4 K/CMM [1.0-5.5 K/CMM] (03/07/18 4:31 AM) Monocytes # [0.0-0.8 0.6 K/CMM K/CMM] (03/07/18 4:31 AM) Eosinophils # 0.3 K/CMM [0.0-0.5 K/CMM] (03/07/18 4:31 AM) PT [12.0-14.7 12.6 seconds seconds] (03/07/18 4:31 AM) INR [0.85-1.17] 0.94 (03/07/18 4:31 AM) PTT [22.9-35.8 36.5 seconds seconds] *HI* (03/07/18 4:31 AM) Immunizations No data available for this [...] 21; Started at age[age]; entered on: 03/07/18 Assessment and Plan No data available for this section
--- OUTSIDE RECORDS SUMMARY | 2018-12-02 15:25 | XMS REPORT | Summary of Care ---
Author Organization Unknown Address Unknown Phone Unavailable Encounter GAEL [place](CLEMENTE) [id number] Date(s): 04/14/14 - 04/14/14 [facility] Outpatient Imaging [facility] [id number] [place] [address] Discharge Disposition: Home Physician Attending: Andie San MD Reason for Visit V76.12 - SCREEN MAMMOGRA Problem List Condition Effective Dates Status Health Status Informant Acute Active pain(Confirmed)1 Chronic Active pain(Confirmed)2 Emesis(Confirmed) Active Nausea(Confirmed) Active Pain Active assessment(Confirmed ) 1s/p abdominal incision 2DX: fibromyalgia Allergies, Adverse Reactions, Alerts Substance Reaction Severity Status aspirin Iodine,Miscellaneous Routes,granules Active Aspirin,800 MG,Oral (systemic),extended-release tablet Erythromycin,Miscellaneous Routes,compounding Compazine Tetracycline Hydrochloride,100 MG,Oral (systemic),capsule Doxycycline Hyclate,100 MG,Oral (systemic),capsule Talwin Nx Percodan Penicillin G Benzathine,300,000 U/ML,Injection (systemic),injection [place] Oil Percocet Darvocet N Darvon castor oil Active cephalexin Active codeine Active Compazine Active Darvocet N Active Darvon Active doxycycline Active erythromycin Active iodine topical Compazine Active Keflex Active Levaquin Active Lyrica Active mineral oil Active OxyCONTIN Active penicillin Active Percocet Active Percodan Active sulfa drugs Active Talwin Active tetracyclines Active traMADol Active Zithromax Active Medications No data available for this section Medications Administered During Your Visit No data available for this section Immunizations No data available for this section
--- OUTSIDE RECORDS SUMMARY | 2018-12-02 15:25 | XMS REPORT | Summary of Care ---
Author Author [facility] Organization [facility] Address Unknown Phone Unavailable Encounter GAEL [place](CLEMENTE) [id number] Date(s): 01/17/16 - 01/17/16 [facility] [address], [place], [place] [address]- [phone] Discharge Diagnosis: Shingles Discharge Disposition: Home Attending Physician: Gaurav Ballesteros MD Vital Signs Most recent to 1 oldest [Reference Range]: Height 170.18 cm (01/17/16 10:23 PM) Temperature Oral 98.5 DegF [96.4-99.1 DegF] (01/17/16 10:23 PM) Blood Pressure 187/107 mmHg [90-140/60-90 mmHg] *HI* (01/17/16 10:23 PM) Respiratory Rate 20 BRMIN [14-20 BRMIN] (01/17/16 10:23 PM) Peripheral Pulse 96 bpm Rate [60-100 bpm] (01/17/16 10:23 PM) Weight 69 kg (01/17/16 10:23 PM) Body Mass Index 23.82 m2 (01/17/16 10:23 PM) Problem List Condition Effective Dates Status Health Status Informant Acute Active pain(Confirmed)1 Bronchitis, Active chronic(Confirmed) Chronic Active pain(Confirmed)2 COPD (chronic Active obstructive pulmonary disease)(Confirmed) DM (diabetes Active mellitus)(Confirmed) Emesis(Confirmed) Active Emphysema(Confirmed) Active HTN Active (hypertension)(Confi rmed) PR (myocardial Resolved infarction)(Confirme d) Nausea(Confirmed) Active Pain Active assessment(Confirmed ) 1s/p abdominal incision 2DX: fibromyalgia Allergies, Adverse Reactions, Alerts Substance Reaction Severity Status aspirin Iodine,Miscellaneous Routes,granules Active Aspirin,800 MG,Oral (systemic),extended-release tablet Erythromycin,Miscellaneous Routes,compounding Compazine Tetracycline Hydrochloride,100 MG,Oral (systemic),capsule Doxycycline Hyclate,100 MG,Oral (systemic),capsule [place]win Nx Percodan Penicillin G Benzathine,300,000 U/ML,Injection (systemic),injection [place] Oil Percocet Darvocet N Darvon castor oil Active cephalexin Active codeine Active Compazine Active Darvocet N Active Darvon Active doxycycline Active erythromycin Active iodine topical Compazine Active Keflex Active Levaquin Active Lyrica Active mineral oil Active OxyCONTIN Active penicillin Active Percocet Active Percodan Active sulfa drugs Active Talwin Active tetracyclines Active traMADol Active Zithromax Active Medications acyclovir 800 mg oral tablet 800 mg=1 tab, PO, 5X Day, X 10 day, # 50 tab, 0 Refill(s) Start Date: 01/17/16 Stop Date: 01/27/16 Status: Ordered [place] 5/325 oral tablet 1 tab, Route: PO, Drug Form: TAB, Dosing Weight 69, kg, ONCE, STAT, Start date: 01/17/16 22:35:00 CDT, Stop date: 01/17/16 22:35:00 CDT Notes: (Same as: [place] 325/5) Do not exceed 4gm/day of acetaminophen. Start Date: 01/17/16 Stop Date: 01/17/16 Status: Completed Results No data available for this section Immunizations No data available for this section Procedures Procedure Date Related Diagnosis Body Site Appendectomy Cholecystectomy Hysterectomy Partial repair of rotator cuff Partial resection of colon Repair of nerve Repair of shoulder Tonsillectomy and adenoidectomy Social History Social History Type Response Substance Abuse Use: None. Alcohol Never Smoking Status Current every day smoker; Type: Cigarettes; Exposure to Tobacco Smoke smoker; Cigarette Smoking Last 365 Days Yes; Reg Smoking Cessation Counseling No Assessment and Plan No data available for this section
--- OUTSIDE RECORDS SUMMARY | 2018-12-02 15:25 | XMS REPORT | CCD ---
Author Author Auto Generated Organization [facility] Address Unknown Phone Unavailable Care Team Providers Care [employer] Worker Name Role Phone Khris Barrios CP Tanner Tapiaaleshia RP Allergies, Adverse Reactions, Alerts Substance Reaction Status aspirin Iodine,Miscellaneous Routes,granules Active Aspirin,800 MG,Oral (systemic),extended-release tablet Erythromycin,Miscellaneous Routes,compounding Compazine Tetracycline Hydrochloride,100 MG,Oral (systemic),capsule Doxycycline Hyclate,100 MG,Oral (systemic),capsule [place]win Nx Percodan Penicillin G Benzathine,300,000 U/ML,Injection (systemic),injection [place] Oil Percocet Darvocet N Darvon castor oil Active cephalexin Active codeine Active Compazine Active Darvocet N Active Darvon Active doxycycline Active erythromycin Active iodine topical Compazine Active Keflex Active Levaquin Active Lyrica Active mineral oil Active OxyCONTIN Active penicillin Active Percocet Active Percodan Active sulfa drugs Active Talwin Active tetracyclines Active traMADol Active Zithromax Active Problem List Condition Effective Dates Status Acute pain1 Active Chronic pain2 Active Emesis Active Nausea Active Pain assessment Active 1s/p abdominal incision 2DX: fibromyalgia Medications Medication Instructions Start Date End Date Status LR IV 1,000 mL 1,000 mL, Rate: 100 ml/hr, Infuse 08/04/2012 08/04/2012 Discontinued over: 10 hr, Route: IV, kg, Total Volume: 1,000, Start date: 08/04/12 3:04:00, Duration: 30 day, Stop date: 09/03/12 3:03:00 morphine Sulfate 2 mg, 1 mL, Route: IVP, Drug form: 08/04/2012 08/04/2012 Completed INJ, ONCE, Dosing Weight 63.636, kg, Priority: STAT, Start date: 08/04/12 3:04:00, Stop date: 08/04/12 3:04:00 ciprofloxacin 400 mg, Route: IVPB, ONCE, Dosing 08/04/2012 08/04/2012 Discontinued Weight 63.636, kg, Priority: STAT, Start date: 08/04/12 3:26:00, Stop date: 08/04/12 3:26:00 Reglan 10 mg, 2 mL, Route: IVP, Drug form: 08/04/2012 08/04/2012 Completed INJ, ONCE, Dosing Weight 63.636, kg, Priority: STAT, Start date: 08/04/12 3:21:00, Stop date: 08/04/12 3:21:00 Fleet Enema 133 mL, Route: SD, Drug Form: KONRAD, 08/04/2012 08/04/2012 Discontinued Dosing Weight 63.636, kg, ONCE, PRN as needed for constipation, Start date: 08/04/12 3:17:00 bisacodyl 10 mg, 1 supp, Route: SD, Drug 08/04/2012 08/04/2012 Completed form: SUPP, ONCE, Dosing Weight 63.636, kg, Start date: 08/04/12 3:17:00, Stop date: 08/04/12 3:17:00 morphine Sulfate 2 mg, 1 mL, Route: IV, Drug form: 08/04/2012 08/04/2012 Discontinued INJ, Q2H, Dosing Weight 63.636, kg, PRN Pain, Start date: 08/04/12 3:56:00, Duration: 30 day, Stop date: 09/03/12 3:55:00 Vital Signs Most recent to oldest [Reference Range]: 1 2 Height 170.18 cm (08/03/2012 23:37:00) Temperature Oral [96.4-99.1 DegF] 99.6 DegF *HI* (08/04/2012 10:30:00) 99.6 DegF *HI* (08/04/2012 10:20:00) Systolic Blood Pressure [90-140 mmHg] 139 mmHg (08/04/2012 10:30:00) 139 mmHg (08/04/2012 10:20:00) Diastolic Blood Pressure [60-90 mmHg] 74 mmHg (08/04/2012 10:30:00) 74 mmHg (08/04/2012 10:20:00) Respiratory Rate [14-20 BRMIN] 20 BRMIN (08/04/2012 10:30:00) 20 BRMIN (08/04/2012 10:20:00) Peripheral Pulse Rate [60-100 bpm] 91 bpm (08/04/2012 10:30:00) 91 bpm (08/04/2012 10:20:00) Weight 63.636 kg (08/03/2012 23:37:00)
--- OUTSIDE RECORDS SUMMARY | 2018-12-02 15:25 | XMS REPORT | Summary of Care ---
Author Author [facility] Organization [facility] Address Unknown Phone Unavailable Encounter GAEL [place](CLEMENTE) [id number] Date(s): 05/14/16 - 05/14/16 [facility] [address] [place] [address]- Discharge Disposition: Home or Self Care Attending Physician: Francis Raymundo MD Admitting Physician: Francis Raymundo MD Referring Physician: Francis Raymundo MD Vital Signs 1 2 3 Most recent to oldest [Reference Range]: 170.1 cm (05/14/16 10:03 AM) 170.18 cm (05/10/16 11:31 AM) Height 97.5 DegF (05/14/16 11:32 AM) 98.1 DegF (05/14/16 9:39 AM) 97.5 DegF (05/10/16 11:32 AM) Temperature Oral [96.4-99.1 DegF] 152/92 mmHg *HI* (05/14/16 11:32 AM) 132/92 mmHg (05/14/16 10:40 AM) 152/89 mmHg *HI* (05/14/16 10:25 AM) Blood Pressure [90-140/60-90 mmHg] 22 BRMIN *HI* (05/14/16 11:32 AM) 22 BRMIN *HI* (05/14/16 9:39 AM) 21 BRMIN *HI* (05/14/16 9:30 AM) Respiratory Rate [14-20 BRMIN] 80 bpm (05/14/16 11:32 AM) 80 bpm (05/14/16 9:39 AM) 71 bpm (05/14/16 7:46 AM) Peripheral Pulse Rate [60-100 bpm] 64.631 kg (05/14/16 10:03 AM) 64.631 kg (05/10/16 11:31 AM) Weight 22.34 m2 (05/14/16 10:03 AM) 22.32 m2 (05/10/16 11:31 AM) Body Mass Index Problem List Condition Effective Dates Status Health Status Informant Acute Active pain(Confirmed)1 Bronchitis, Active chronic(Confirmed) Chronic Active pain(Confirmed)2 COPD (chronic Active obstructive pulmonary disease)(Confirmed) DM (diabetes Active mellitus)(Confirmed) Emesis(Confirmed) Active Emphysema(Confirmed) Active HTN Active (hypertension)(Confi rmed) CA (myocardial Resolved infarction)(Confirme d) Nausea(Confirmed) Active Pain Active assessment(Confirmed ) 1s/p abdominal incision 2DX: fibromyalgia Allergies, Adverse Reactions, Alerts Substance Reaction Severity Status Adhesive Tape Active aspirin Iodine,Miscellaneous Routes,granules Active Aspirin,800 MG,Oral (systemic),extended-release tablet Erythromycin,Miscellaneous Routes,compounding Compazine Tetracycline Hydrochloride,100 MG,Oral (systemic),capsule Doxycycline Hyclate,100 MG,Oral (systemic),capsule Talwin Nx Percodan Penicillin G Benzathine,300,000 U/ML,Injection (systemic),injection Arthur Oil Percocet Darvocet N Darvon castor oil Active cephalexin Active codeine Active Compazine Active Darvocet N Active Darvon Active doxycycline Active erythromycin Active iodine topical Compazine Active Keflex Active Levaquin Active Lyrica Active mineral oil Active OxyCONTIN Active penicillin Active Percocet Active Percodan Active sulfa drugs Active Talwin Active tetracyclines Active traMADol Active Zithromax Active Medications Benicar 20 mg, Route: PO, Drug form: TAB, BID, Dosing Weight 64.631, kg, Start date: 02/21 9:00:00 CDT, Duration: 30 day, Stop date: 06/12/16 17:00:00 CDT Start Date: 05/14/16 Stop Date: 05/14/16 Status: Discontinued Benicar 20 mg, 1 tab, Route: PO, Drug form: TAB, BID, Dosing Weight 64.631, kg, Start da te: 05/14/16 12:00:00 CDT, Duration: 30 day, Stop date: 06/13/16 9:00:00 CDT Start Date: 05/14/16 Stop Date: 05/14/16 Status: Discontinued Benicar 20 mg oral tablet 20 mg=1 tab, PO, BID, # 30 tab, 0 Refill(s) Start Date: 05/14/16 Status: Ordered dicyclomine 20 mg, 1 tab, Route: PO, Drug form: TAB, TID-Meals, Dosing Weight 64.631, kg, St art date: 05/14/16 12:00:00 CDT, Duration: 30 day, Stop date: 06/13/16 8:00:00 C DT Notes: (Same as: Bentyl) Start Date: 05/14/16 Stop Date: 05/14/16 Status: Discontinued dicyclomine 20 mg oral tablet 20 mg=1 tab, PO, TID, # 56 tab, 0 Refill(s) Start Date: 05/14/16 Stop Date: 05/28/16 Status: Ordered Dilaudid 8 mg oral tablet 8 mg=1 tab, PO, Q6H, PRN Pain, 0 Refill(s) Start Date: 05/10/16 Stop Date: 05/17/16 Status: Ordered Duramorph PF 1 mg/mL preservative-free injectable solution 1 mg, 1 mL, Route: INJ, Drug form: INJ, ONCE, Dosing Weight 64.631, kg, Start da te: 05/14/16 7:10:00 CDT, Stop date: 05/14/16 7:10:00 CDT Notes: (Same as:Duramorph, Astramorph-PF) Preservative free. Start Date: 05/14/16 Stop Date: 05/14/16 Status: Completed fentaNYL (ANES) Route: IV, Drug form: INJ, ONCE, Stop date: 05/14/16 8:12:00 CDT Start Date: 05/14/16 Stop Date: 05/14/16 Status: Completed Flexeril 10 mg, 1 tab, Route: PO, Drug form: TAB, ONCE, Start date: 05/14/16 12:32:00 CDT , Stop date: 05/14/16 12:32:00 CDT Notes: (Same As: Flexeril) Start Date: 05/14/16 Stop Date: 05/14/16 Status: Completed Flexeril 10 mg, Route: PO, Drug form: TAB, QID, Dosing Weight 64.631, kg, Start date: 02/21 9:00:00 CDT, Duration: 30 day, Stop date: 06/12/16 21:00:00 CDT Start Date: 05/14/16 Stop Date: 05/14/16 Status: Discontinued Flexeril 10 mg oral tablet 10 mg=1 tab, PO, QID, 0 Refill(s) Start Date: 05/14/16 Status: Ordered Lactated Ringers Injection IV 1000 mL 1,000 mL, Rate: 25 ml/hr, Infuse over: 40 hr, Route: IV, Dosing Weight 64.631 kg , Total Volume: 1,000, Start date: 05/14/16 7:55:00 CDT, Duration: 30 day, Stop date: 06/13/16 7:54:00 CDT Start Date: 05/14/16 Stop Date: 05/14/16 Status: Discontinued Lipitor 40 mg oral tablet 40 mg=1 tab, PO, Daily, at 4pm, 0 Refill(s) Start Date: 05/14/16 Status: Ordered LR 1000 mL INJ (ANES) Route: IV, Total Volume: 1,000, Start date: 05/14/16 7:43:00 CDT, Stop date: 02/21 8:43:00 CDT Start Date: 05/14/16 Stop Date: 05/14/16 Status: Completed metFORMIN 500 mg, PO, Daily, 0 Refill(s) Start Date: 05/14/16 Status: Ordered metFORMIN 500 mg oral tablet 500 mg, 1 tab, Route: PO, Drug form: TAB, QAM, Dosing Weight 64.631, kg, Start d ate: 05/14/16 9:00:00 CDT, Stop date: 06/13/16 9:00:00 CDT Notes: (Same as: Glucophage) Take with meal Start Date: 05/14/16 Stop Date: 05/14/16 Status: Discontinued midazolam (ANES) Route: IV, Drug form: SOLN, ONCE, Stop date: 05/14/16 8:12:00 CDT Start Date: 05/14/16 Stop Date: 05/14/16 Status: Completed morphine 30 mg oral tablet 30 mg=1 tab, PO, Q4H, PRN Pain, 0 Refill(s) Start Date: 05/10/16 Stop Date: 05/14/16 Status: Discontinued morphine Sulfate 30 mg, 2 tab, Route: PO, Drug form: TAB, Q4H, Dosing Weight 64.631, kg, PRN Pain Score 4-6, Start date: 05/14/16 8:06:00 CDT, Duration: 30 day, Stop date: 06/13 8:05:00 CDT Notes: (Same as:MORPhine Sulfate) Start Date: 05/14/16 Stop Date: 05/14/16 Status: Discontinued nitroglycerin 0.4 mg sublingual tablet 0.4 mg, 1 tab, Route: SL, Drug form: TAB, Q5Min, Dosing Weight 64.631, kg, PRN C hest Pain, Start date: 05/14/16 8:07:00 CDT, Duration: 30 day, Stop date: 8:06:00 CDT Notes: (Same as:Nitroquick, Nitrostat)"Do Not Crush" Sublingual tablet Start Date: 05/14/16 Stop Date: 05/14/16 Status: Discontinued ProAir HFA 90 mcg/inh inhalation aerosol with adapter 1 puff, Route: INHALATION, Drug Form: AERO/A, Dosing Weight 64.631, kg, PRN, PRN as needed for wheezing, Start date: 05/14/16 8:05:00 CDT, Duration: 30 day, Stop date: 06/13/16 8:04:00 CDT Notes: Albuterol 90 microgram/inh 8gm HFAWASTE: Aerosol - Return to Pharm[facility] as: Ventolin, Proventil Start Date: 05/14/16 Stop Date: 05/14/16 Status: Discontinued propofol (ANES) Route: IV, Drug form: INJ, ONCE, Stop date: 05/14/16 8:12:00 CDT Start Date: 05/14/16 Stop Date: 05/14/16 Status: Completed Xanax 1 mg oral tablet 1 mg, 1 tab, Route: PO, Drug form: TAB, Bedtime, Dosing Weight 64.631, kg, PRN A nxiety, Start date: 05/14/16 8:05:00 CDT, Duration: 30 day, Stop date: 06/13/16 8:04:00 CDT Notes: With food or milk(Same as: Xanax) Start Date: 05/14/16 Stop Date: 05/14/16 Status: Discontinued Zofran 4 mg, TID, 0 Refill(s) Start Date: 05/14/16 Status: Ordered Results ELECTROLYTES Most recent to 1 oldest [Reference Range]: Sodium Lvl [135-145 129 mEq/L mEq/L] *LOW* (05/10/16 12:06 PM) Potassium Lvl 3.9 mEq/L [3.5-5.1 mEq/L] (05/10/16 12:06 PM) Chloride Lvl [95-109 96 mEq/L mEq/L] (05/10/16 12:06 PM) CO2 [24-32 mEq/L] 25 mEq/L (05/10/16 12:06 PM) AGAP [10.0-20.0 11.9 mEq/L mEq/L] (05/10/16 12:06 PM) CHEM PANEL Most recent to 1 oldest [Reference Range]: Creatinine Lvl 0.69 mg/dL [0.50-1.40 mg/dL] (05/10/16 12:06 PM) eGFR 96 mL/min/1.73m2 1 *NA* (05/10/16 12:06 PM) BUN [7-22 mg/dL] 4 mg/dL *LOW* (05/10/16 12:06 PM) Glucose Lvl [70-99 80 mg/dL mg/dL] (05/10/16 12:06 PM) Calcium Lvl 8.8 mg/dL [8.5-10.5 mg/dL] (05/10/16 12:06 PM) 1Result Comment: The eGFR is calculated [...] be mul tiplied by the estimated BMI. Immunizations No data available for this section [...] Concerns about tobacco use in household: No; Exposure to Tobacco Smoke smoker; Other Tobacco Frequency 1 pk/day; Cigarette Smoking Last 365 Days Yes; Reg Smoking Cessation Counseling No Assessment and Plan Extracted from: Title: 23 hour observation Author: Francis Raymundo MD Date: 05/15/16 discharge Discharge Summary Name: Katiana Goldman Record Number: [id number] Admission Date: 05-14-2016 Discharge Date: 05-14-2016 Diagnoses: lumbar radiculopathy, chronic pain syndome Procedures: intrathecal opioid trial Chief Complaint chronic pain HPI: chronic low back pain with radicular symptoms PMH: see H&P Hospital course: underwent intratrhecal bolus trial. Patient reports significant pain relief greater than 70%. Patient was able to spontaneously void and asked to be allowed to go home. Patient was discharged per request, after able to void and no episodes of apnea reported. Discharge condition: good Recent signficant physical findings: none Recent significant lab & radiology results: none Discharge therapy: Medications resume home medications Diet resume home diet Activity no restriction Follow up as scheduled Extracted from: Title: 23 hours observation for IT Author: Francis Raymundo MD Date: 05/14/16 opioid trial History and Physical Chief Complaint: chronic pain secondary to post laminectomy syndrome History of Present Illness see office/procedure H&P Past Medical History see office/procedure H&P Review Of Systems see office/procedure H&P Physical Exam General: awake, in no acute distress Musculoskeletal: lumbar pain with ROM stength 5/5 throughout bilateral lower extremities A/P Chronic pain syndrome Lumbar post laminectomy syndrome Patient underwent intrathecal opioid trial with intrathecal morphine. No iodine contrast was used due to patient allergy. In PACU, patient reported significant greater than 70% pain improvement, without requirement of additional pain medication. Will monitor overnight for spontaneous void and no apneic episodes. Will follow up with patient, may proceed with IT pump implant. Patient is okay to be discharged first thing in the morning if able to void spontaneously and no apneic episodes. Extracted from: Title: Intrathecal opioid trial Author: Francis Raymundo MD Date: 05/14/16 OP note - intrathecal pump trial The procedure was performed at at [facility] , The H&P, done within the past 30 days, was reviewed with patient prior to the procedure and patient denies significant changes. PATIENT NAME: Katiana Goldman DATE OF : 57 REFERRAL SOURCE: Andie San DATE OF PROCEDURE: 05/14/16 SURGEON: Francis Raymundo M.D. PRE-PROCEDURE DIAGNOSIS: Intervertebral disc disorders with radiculopa ... Chronic pain syndrome POST-PROCEDURE DIAGNOSIS: Intervertebral disc disorders with radiculopa ... Chronic pain syndrome PROCEDURES: Intrathecal pump trial Fluoroscopic guidance for the above procedure ANESTHESIA: total intravenous anesthetic (TIVA) ESTIMATED BLOOD LOSS: Minimal IV FLUIDS: Per anesthetic/nursing record COMPLICATIONS: None PROCEDURE IN DETAIL: The patient was identified in the procedure room. Risks, benefits, and alternatives were discussed, all questions were answered, and the patient desired to proceed. Consent was noted in the chart and a time out was performed. Then the patient was made comfortable in the prone position on the procedure table. Pressure points were checked and padded awake. Vital signs were stable.Anesthesia was provided as indicated above. An antiseptic solution was used over the area followed by sterile draping. Fluoroscopy was used to optimize the approach over the lumbar spine. A skin wheal was raised with lidocaine 1% using a 25 gauge 1.5 inch needle and carried deep into the subcutaneous tissue. Then a 22 gauge 3.5 inch spinal needle was advanced into the subarachnoid space at the L2-L3 level with fluoroscopic guidance. Aspiration was positive for a clear fluid yielding 1 mL total volume. Then 200mcg of Duramorph in 1mL 0.9% preservative free saline was injected. The needles were then removed and the tips were noted to be intact. Pressure was applied to the puncture site to prevent ecchymosis and oozing. The site was cleaned and a band-aid was placed over the injection site. The patient was transferred to a stretcher and taken to the recovery area in stable condition. The patient tolerated the procedure well, suffered no apparent adverse events. The patient was then admitted for 23 hour observation to evaluate pain improvement and monitor for potential side effects from the procedure. Patient reports over 70 percent improvement in pain symptoms with intrathecal morphine. Discharge Note/Follow Up Care: Post-op diagnosis - same as above Discharge - home, with responsible adult Medication - resume home medications Activity - resume home activity Diet - resume home diet Medication reconciliation - yes Follow-up - as scheduled or in 2 weeks,
--- OUTSIDE RECORDS SUMMARY | 2018-12-02 15:25 | XMS REPORT | Summary of Care ---
Author Author [facility] Organization [facility] Address Unknown Phone Unavailable Encounter GAEL [place](CLEMENTE) [id number] Date(s): 04/05/18 - 04/08/18 [facility] [id number] [place] [address]- Encounter Diagnosis Hypertensive urgency (Final) - 04/20/18 Unspecified protein-calorie malnutrition (Final) - Hypo-osmolality and hyponatremia (Final) - Old myocardial infarction (Final) - Scoliosis, unspecified (Final) - Emphysema, unspecified (Final) - Hypertensive heart disease with heart failure (Final) - Hypokalemia (Final) - Nicotine dependence, cigarettes, uncomplicated (Final) - Anemia in other chronic diseases classified elsewhere (Final) - Acute gastritis without bleeding (Final) - Dehydration (Final) - Fibromyalgia (Final) - Hypocalcemia (Final) - Hypomagnesemia (Final) - Other disorders of phosphorus metabolism (Final) - Heart failure, unspecified (Final) - Major depressive disorder, single episode, unspecified (Final) - Chronic pain syndrome (Final) - Family history of ischemic heart disease and other diseases of the circulatory s ystem (Final) - Other intervertebral disc degeneration, lumbosacral region (Final) - Type 2 diabetes mellitus with diabetic peripheral angiopathy without gangrene (Final) - Unspecified chronic bronchitis (Final) - Discharge Disposition: Home Care with Home Health Attending Physician: Lety Love MD Admitting Physician: Lety Love MD Vital Signs 1 2 3 Most recent to oldest [Reference Range]: 165.1 cm (04/05/18 3:12 PM) Height 79.545 kg (04/08/18 5:01 AM) 81 kg (04/07/18 5:46 AM) Current Weight 98.4 DegF (04/08/18 7:26 PM) 98.3 DegF (04/08/18 3:00 PM) 98.4 DegF (04/08/18 11:00 AM) Temperature Oral [96.4-99.1 DegF] 128/85 mmHg (04/08/18 7:26 PM) 131/84 mmHg (04/08/18 3:00 PM) 105/72 mmHg (04/08/18 11:00 AM) Blood Pressure [90-140/60-90 mmHg] 18 BRMIN (04/08/18 7:26 PM) 18 BRMIN (04/08/18 3:00 PM) 18 BRMIN (04/08/18 11:00 AM) Respiratory Rate [14-20 BRMIN] 100 bpm (04/08/18 7: PM) 90 bpm (04/08/18 3:00 PM) 86 bpm (04/08/18 11:00 AM) Peripheral Pulse Rate [60-100 bpm] 82.3 kg (04/06/18 1:07 AM) 86.364 kg (04/05/18 3:12 PM) Weight 31.68 m2 (04/05/18 3:12 PM) Body Mass Index Problem List Condition Effective Dates Status Health Status Informant Acute Active pain(Confirmed)1 Angina Active pectoris(Confirmed) Bronchitis, Active chronic(Confirmed) Chronic Active pain(Confirmed)2 CHF (congestive Active heart failure)(Confirmed) COPD (chronic Active obstructive pulmonary disease)(Confirmed) Degenerative disc Active disease at L5-S1 level(Confirmed) Shoulder Active disorder(Confirmed)3 DM (diabetes Active mellitus)(Confirmed) Emesis(Confirmed) Active Fibromyalgia(Confirm Active ed) HTN Active (hypertension)(Confi rmed) Bowel Active obstruction(Confirme d) NM (myocardial Active infarction)(Confirme d) Nausea(Confirmed) Active Pain Active assessment(Confirmed ) Emphysema of Active lung(Confirmed) Scoliosis(Confirmed) Active 1s/p abdominal incision 2DX: fibromyalgia 3lt shoulder surgery x 3 Allergies, Adverse Reactions, Alerts Substance Reaction Severity Status sulfa drugs Active iodine topical Compazine Active tetracyclines Active codeine Active doxycycline Active erythromycin Active cephalexin Active penicillin Active aspirin Darvon Active Darvocet N Percocet [place] Penicillin G Benzathine,300,000 U/ML,Injection (systemic),injection Percodan Talwin Nx Doxycycline Hyclate,100 MG,Oral (systemic),capsule Tetracycline Hydrochloride,100 MG,Oral (systemic),capsule Compazine Erythromycin,Miscellaneous Routes,compounding Aspirin,800 MG,Oral (systemic),extended-release tablet Iodine,Miscellaneous Routes,granules castor oil Active mineral oil Active Keflex Active Zithromax Active Percocet Active Percodan Active Talwin Active Darvocet N Active Levaquin Active Compazine Active Darvon Active Lyrica Active Adhesive Tape Active traMADol Active OxyCONTIN Active Medications acetaminophen 650 mg, 2 tab, Route: PO, Drug form: TAB, Q4H, Dosing Weight 86.364, kg, PRN For Temp > 100.4 F, Start date: 04/05/18 22:18:00 CDT, Duration: 30 day, Stop date: 05/05/18 22:17:00 CDT Notes: Do not exceed 4 gm/day. (Same as: Tylenol) Start Date: 04/05/18 Stop Date: 04/08/18 Status: Discontinued Advair Diskus 500 mcg-50 mcg inhalation powder 1 puff, Route: INHALATION, Drug Form: AERO, Dosing Weight 86.364, kg, BID, Start date: 04/06/18 9:00:00 CDT, Duration: 30 day, Stop date: 05/05/18 17:00:00 CDT Start Date: 04/06/18 Stop Date: 04/05/18 Status: Deleted albuterol 2.49 mg, 3 mL, Route: INHALATION, Drug form: SOLN, RQ6H, Start date: 04/06/18 2: 00:00 CDT, Duration: 30 day, Stop date: 05/05/18 20:00:00 CDT Notes: SEE RT DOCUMENTATION (Same as: Proventil) Start Date: 04/06/18 Stop Date: 04/08/18 Status: Discontinued ALPRAZOLam 2 mg, Route: PO, Bedtime, Dosing Weight 82.3, kg, Start date: 04/06/18 21:00:00 CDT, Duration: 30 day, Stop date: 05/05/18 21:00:00 CDT Start Date: 04/06/18 Stop Date: 04/06/18 Status: Canceled calcium carbonate 500 mg (200 mg elemental calcium) oral tablet 1,000 mg, 2 tab, Route: PO, Drug form: CHEWTAB, PRN, Dosing Weight 86.364, kg, P RN Abnormal Lab Result, FOR ICU USE ONLY, Start date: 04/05/18 22:18:00 CDT, Dur ation: 30 day, Stop date: 05/05/18 22:17:00 CDT Notes: (Same As: Maydas)Calcium Carbonate 500 iy=260 mg elemental calcium Dose=_ mg calcium carbonate ( mg elemental calcium) Start Date: 04/05/18 Stop Date: 04/06/18 Status: Discontinued calcium carbonate 500 mg (200 mg elemental calcium) oral tablet 500 mg, 1 tab, Route: PO, Drug form: CHEWTAB, PRN, Dosing Weight 86.364, kg, PRN Abnormal Lab Result, FOR ICU USE ONLY, Start date: 04/05/18 22:18:00 CDT, Durat ion: 30 day, Stop date: 05/05/18 22:17:00 CDT Notes: (Same As: Maydas)Calcium Carbonate 500 ih=726 mg elemental calcium Dose=_ mg calcium carbonate ( mg elemental calcium) Start Date: 04/05/18 Stop Date: 04/06/18 Status: Discontinued calcium gluconate + Sodium Chloride 0.9% IV 150 mL 3,000 mg, 30 mL, Route: IVPB, ONCE, Dosing Weight 82.3, kg, Start date: 04/08/18 9:38:00 CDT, Stop date: 04/08/18 9:38:00 CDT Notes: WASTE: F/P - Sink; E - Municipal Trash Bin Start Date: 04/08/18 Stop Date: 04/08/18 Status: Completed calcium gluconate + Sodium Chloride 0.9% IV 50 mL 1 gm, 10 mL, Route: IVPB, PRN, Dosing Weight 86.364, kg, PRN Abnormal Lab Result , Start date: 04/05/18 22:18:00 CDT, Duration: 30 day, Stop date: 05/05/18 22:17 :00 CDT, FOR ICU USE ONLY Notes: WASTE: F/P - Sink; E - Municipal Trash Bin Start Date: 04/05/18 Stop Date: 04/06/18 Status: Discontinued Cardene 40 mg in NS 200 mL (Titrate.) IV 40 mg 40 mg, 200 mL, Rate: Titrate, Start Dose: 5 mg/hr, Titration: 2.5 mg/hr every 15 minutes, Goal(s): goal systolic blood pressure < 180, Max Dose: 15 mg/hr, Route: IV, Dosing Weight 86.364 kg, Total Volume: 200, Start date: 04/05/18 18:22:00 CDT, Durati... Notes: Same as: CardeneConcentration: (0.2 mg /1 ml ) Start Date: 04/05/18 Stop Date: 04/06/18 Status: Discontinued cloNIDine 0.1 mg oral tablet 0.1 mg, 1 tab, Route: PO, Drug form: TAB, BID, Dosing Weight 86.364, kg, Start d ate: 04/06/18 9:00:00 CDT, Duration: 30 day, Stop date: 05/05/18 21:00:00 CDT Notes: (Same As: Catapres) Start Date: 04/06/18 Stop Date: 04/08/18 Status: Discontinued dicyclomine 20 mg, 1 tab, Route: PO, Drug form: TAB, TID-Meals, Dosing Weight 86.364, kg, St art date: 04/06/18 8:00:00 CDT, Duration: 30 day, Stop date: 05/05/18 17:00:00 C DT Notes: (Same as: Aftab) Start Date: 04/06/18 Stop Date: 04/08/18 Status: Discontinued Dilaudid 8 mg, 4 tab, Route: PO, Drug form: TAB, Q6H, Dosing Weight 86.364, kg, PRN Pain Score 6-10, Start date: 04/05/18 22:20:00 CDT, Duration: 30 day, Stop date: 04/09 04/25 22:19:00 CDT Notes: (Same as: Dilaudid) Start Date: 04/05/18 Stop Date: 04/08/18 Status: Discontinued Dilaudid 8 mg oral tablet 8 mg=1 tab, PO, Q4H, PRN Pain, 0 Refill(s) Start Date: 04/05/18 Stop Date: 04/08/18 Status: Discontinued docusate-senna 50 mg-8.6 mg oral tablet 1 tab, PO, BID, X 10 day, # 20 tab, 0 Refill(s), Pharmacy: [id number] Start Date: 04/08/18 Stop Date: 04/18/18 Status: Completed docusate-senna 50 mg-8.6 mg oral tablet 1 tab, Route: PO, Drug Form: TAB, Dosing Weight 82.3, kg, BID, NOW, Start date: 04/07/18 11:01:00 CDT, Stop date: 04/07/18 18:02:00 CDT Notes: (Same as Senokot-S) Equiv. to Tabitha-Colace. Start Date: 04/07/18 Stop Date: 04/07/18 Status: Completed Flexeril 10 mg, 1 tab, Route: PO, Drug form: TAB, Bedtime, Dosing Weight 86.364, kg, Star t date: 04/06/18 21:00:00 CDT, Duration: 30 day, Stop date: 05/05/18 21:00:00 CD T Notes: (Same As: Flexeril) Start Date: 04/06/18 Stop Date: 04/08/18 Status: Discontinued heparin 5000 units/mL injectable solution 5,000 unit, 1 mL, Route: SUB-Q, Drug form: INJ, Q8H, Dosing Weight 82.3, kg, Sta rt date: 04/06/18 16:00:00 CDT, Duration: 30 day, Stop date: 05/06/18 8:00:00 CD T Notes: porcine heparin Start Date: 04/06/18 Stop Date: 04/08/18 Status: Discontinued labetalol 10 mg, 2 mL, Route: IVP, Drug form: INJ, ONCE, Dosing Weight 86.364, kg, Priorit y: STAT, Start date: 04/05/18 17:01:00 CDT, Stop date: 04/05/18 17:01:00 CDT Notes: (Same as: Normodyne, Trandate)Push over 2 minutes Give bolus over 2-3 mi nutes. Start Date: 04/05/18 Stop Date: 04/05/18 Status: Completed labetalol 10 mg, Route: IVP, Drug form: INJ, ONCE, Dosing Weight 86.364, kg, Priority: STA T, Start date: 04/05/18 17:49:00 CDT, Stop date: 04/05/18 17:49:00 CDT Start Date: 04/05/18 Stop Date: 04/05/18 Status: Completed Lipitor 40 mg, 1 tab, Route: PO, Drug form: TAB, QPM, Dosing Weight 86.364, kg, Start da te: 04/06/18 16:00:00 CDT, Duration: 30 day, Stop date: 05/05/18 16:00:00 CDT Notes: (Same as: Lipitor) Start Date: 04/06/18 Stop Date: 04/08/18 Status: Discontinued magnesium oxide 800 mg, 2 tab, Route: PO, Drug form: TAB, PRN, Dosing Weight 86.364, kg, PRN Abn ormal Lab Result, FOR ICU USE ONLY, Start date: 04/05/18 22:18:00 CDT, Duration: 30 day, Stop date: 05/05/18 22:17:00 CDT Notes: (Same as: Mag-Ox 400)Magnesium oxide [id number] elemental magnesiumDose= ____mg magnesium oxide (___mg elemental magnesium) Start Date: 04/05/18 Stop Date: 04/06/18 Status: Discontinued magnesium sulfate 2 gm, 50 mL, Route: IVPB, Drug form: INJ, PRN, Dosing Weight 86.364, kg, PRN Abn ormal Lab Result, Start date: 04/05/18 22:18:00 CDT, Duration: 30 day, Stop date : 05/05/18 22:17:00 CDT, FOR ICU USE ONLY Notes: WASTE: F/P - Sink; E - Municipal Trash Bin Start Date: 04/05/18 Stop Date: 04/06/18 Status: Discontinued magnesium sulfate 2 gm, Route: IVPB, Drug form: INJ, ONCE, Dosing Weight 82.3, kg, Total dose=2 gm , Start date: 04/07/18 15:46:00 CDT, Stop date: 04/07/18 15:46:00 CDT Start Date: 04/07/18 Stop Date: 04/07/18 Status: Deleted magnesium sulfate 1 gm, 100 mL, Route: IVPB, Drug form: INJ, Q1H, Start date: 04/07/18 16:00:00 CD T, Duration: 2 doses or times, Stop date: 04/07/18 17:00:00 CDT Notes: WASTE: F/P - Sink; E - Municipal Trash Bin Start Date: 04/07/18 Stop Date: 04/07/18 Status: Completed meclizine 25 mg, 1 tab, Route: PO, Drug form: TAB, QID, Dosing Weight 86.364, kg, PRN as n eeded for nausea/vomiting, Start date: 04/06/18 9:00:00 CDT, Duration: 30 day, S top date: 05/05/18 21:00:00 CDT Notes: (Same as: Antivert) Start Date: 04/06/18 Stop Date: 04/08/18 Status: Discontinued metFORMIN 500 mg, 1 tab, Route: PO, Drug form: TAB, Breakfast, Dosing Weight 86.364, kg, S tart date: 04/06/18 8:00:00 CDT, Duration: 30 day, Stop date: 05/05/18 8:00:00 C DT Notes: (Same as: Glucophage) Take with meal Start Date: 04/06/18 Stop Date: 04/07/18 Status: Discontinued morphine 15 mg oral tablet, extended release 15 mg, 1 tab, Route: PO, Drug form: ERTAB, Q12H, Dosing Weight 86.364, kg, Prior ity: NOW, Start date: 04/05/18 22:23:00 CDT, Duration: 30 day, Stop date: 21:00:00 CDT Notes: Do not crush (Same as:Oramorph SR, MS Contin) Start Date: 04/05/18 Stop Date: 04/08/18 Status: Discontinued morphine Sulfate 4 mg, Route: IVP, ONCE, Dosing Weight 86.364, kg, Priority: STAT, Start date: 17:55:00 CDT, Stop date: 04/05/18 17:55:00 CDT Start Date: 04/05/18 Stop Date: 04/05/18 Status: Completed normal saline 0.9% IV 1,000 mL 1,000 mL, Rate: 125 ml/hr, Infuse over: 8 hr, Route: IV, Dosing Weight 82.3 kg, Total Volume: 1,000, Start date: 04/07/18 7:44:00 CDT, Duration: 30 day, Stop da te: 05/07/18 7:43:00 CDT, 1.97, m2 Start Date: 04/07/18 Stop Date: 04/08/18 Status: Discontinued normal saline 0.9% IV 500 mL 500 mL, Rate: 500 ml/hr, Infuse over: 1 hr, Route: IV, Dosing Weight 82.3 kg, To radha Volume: 500, Start date: 04/08/18 0:29:00 CDT, Duration: 1 doses or times, S top date: 04/08/18 1:28:00 CDT, 1.97, m2 Start Date: 04/08/18 Stop Date: 04/08/18 Status: Completed NS (Bolus) IV 1,000 mL, 1,000 ml/hr, Infuse Over: 1 hr, Route: IV, 1,000, Drug form: INJ, ONCE , Priority: STAT, Dosing Weight 86.364 kg, Start date: 04/05/18 15:29:00 CDT, St op date: 04/05/18 15:29:00 CDT Start Date: 04/05/18 Stop Date: 04/05/18 Status: Completed pantoprazole 40 mg oral enteric coated tablet 40 mg=1 tab, PO, Before Dinner, # 30 tab, 0 Refill(s), Pharmacy: [facility] [employer] [facility] Start Date: 04/08/18 Stop Date: 05/08/18 Status: Ordered Plavix 75 mg, 1 tab, Route: PO, Drug form: TAB, Daily, Dosing Weight 86.364, kg, Start date: 04/06/18 9:00:00 CDT, Duration: 30 day, Stop date: 05/05/18 9:00:00 CDT Notes: (Same As: Plavix) Start Date: 04/06/18 Stop Date: 04/08/18 Status: Discontinued pneumococcal 23-valent vaccine 0.5 mL, Route: IM, Drug Form: INJ, ONCALL, Start date: 04/06/18 9:00:00 CDT, Dur ation: 30 day, Stop date: 05/06/18 8:59:00 CDT Notes: (Same as: Pneumovax 23) Refrigerate Start Date: 04/06/18 Stop Date: 04/08/18 Status: Discontinued polyethylene glycol 3350 oral kit 0 Refill(s) Start Date: 04/05/18 Stop Date: 04/08/18 Status: Discontinued potassium chloride 20 mEq, 1 tab, Route: PO, Drug form: ERTAB, PRN, Dosing Weight 86.364, kg, PRN A bnormal Lab Result, Start date: 04/05/18 22:18:00 CDT, Duration: 30 day, Stop da te: 05/05/18 22:17:00 CDT, FOR ICU USE ONLY Notes: (Same as: K-Dur 20)"Do Not Crush"For patients unable to swallow tablet, d issolve in one half glass of water. Allow about 2 minutes for the tablets to dis integrate. Stir before giving to prepare slurry and administer.Please exclude Pa tients with feeding tube less than 14 M[place] (Dobhoff, J-tube etc) and pediat dhiraj and patients. With food and full glass of water Start Date: 04/05/18 Stop Date: 04/06/18 Status: Discontinued potassium chloride 20 mEq, 1 pkt, Route: NJ, Drug form: PDR/REC, PRN, Dosing Weight 86.364, kg, PRN Abnormal Lab Result, Start date: 04/05/18 22:18:00 CDT, Duration: 30 day, Stop date: 05/05/18 22:17:00 CDT, FOR ICU USE ONLY Notes: (Same as: K-Francine) With food and full glass of water Start Date: 04/05/18 Stop Date: 04/06/18 Status: Discontinued potassium chloride 20 mEq, 100 mL, Route: IVPB, Drug form: INJ, PRN, Dosing Weight 86.364, kg, PRN Abnormal Lab Result, Via central line, Start date: 04/05/18 22:18:00 CDT, Durati on: 30 day, Stop date: 05/05/18 22:17:00 CDT, FOR ICU USE ONLY Notes: (Same as: KCL) Infuse no faster than 10 mEq/hr if given peripherally. Start Date: 04/05/18 Stop Date: 04/06/18 Status: Discontinued potassium chloride 10 mEq, 100 mL, Route: IVPB, Drug form: INJ, PRN, Dosing Weight 86.364, kg, PRN Abnormal Lab Result, Via peripheral line, Start date: 04/05/18 22:18:00 CDT, Dur ation: 30 day, Stop date: 05/05/18 22:17:00 CDT, FOR ICU USE ONLY Notes: Infuse at a rate of 10 mEq/hr.(Same as: KCL) Start Date: 04/05/18 Stop Date: 04/06/18 Status: Discontinued potassium phosphate + Sodium Chloride 0.9% IV 250 mL 15 mmol, 5 mL, Route: IVPB, PRN, Dosing Weight 86.364, kg, PRN Abnormal Lab Resu lt, Start date: 04/05/18 22:18:00 CDT, Duration: 30 day, Stop date: 05/05/18 22: 17:00 CDT, FOR ICU USE ONLY Notes: (Same as: K Phosphate.) 1 mMol phoshate has 1.47 mEq potassium Infuse o tino 4 hours Start Date: 04/05/18 Stop Date: 04/06/18 Status: Discontinued potassium phosphate + Sodium Chloride 0.9% IV 250 mL 45 mmol, 15 mL, Route: IVPB, PRN, Dosing Weight 86.364, kg, PRN Abnormal Lab Res ult, Start date: 04/05/18 22:18:00 CDT, Duration: 30 day, Stop date: 05/05/18 22 :17:00 CDT, FOR ICU USE ONLY Notes: (Same as: K Phosphate.) 1 mMol phoshate has 1.47 mEq potassium Infuse o tino 4 hours Start Date: 04/05/18 Stop Date: 04/06/18 Status: Discontinued potassium phosphate + Sodium Chloride 0.9% IV 250 mL 30 mmol, 10 mL, Route: IVPB, PRN, Dosing Weight 86.364, kg, PRN Abnormal Lab Res ult, Start date: 04/05/18 22:18:00 CDT, Duration: 30 day, Stop date: 05/05/18 22 :17:00 CDT, FOR ICU USE ONLY Notes: (Same as: K Phosphate.) 1 mMol phoshate has 1.47 mEq potassium Infuse o tino 4 hours Start Date: 04/05/18 Stop Date: 04/06/18 Status: Discontinued potassium phosphate-sodium phosphate 250 mg-280 mg-160 mg oral powder for recons titution 2 pkt, Route: PO, Drug Form: PDR/REC, Dosing Weight 86.364, kg, PRN, PRN Abnorma l Lab Result, FOR ICU USE ONLY, Start date: 04/05/18 22:18:00 CDT, Duration: 30 day, Stop date: 05/05/18 22:17:00 CDT Notes: (Same as: Phos-NaK) Each 1.5 gm pkt has 250mg phosphorous. Mix w/2.5oz w ater and stir. Start Date: 04/05/18 Stop Date: 04/06/18 Status: Discontinued Protonix 40 mg, 1 tab, Route: PO, Drug form: ECTAB, Before Dinner, Dosing Weight 82.3, kg , Start date: 04/06/18 16:30:00 CDT, Duration: 30 day, Stop date: 05/05/18 16:30 :00 CDT Notes: Tablet should not be chewed or crushed.(Same as: Protonix) Start Date: 04/06/18 Stop Date: 04/08/18 Status: Discontinued Pulmicort Respules 0.5 mg, 2 mL, Route: INHALATION, Drug form: SUSP, RBID, Start date: 04/06/18 8:0 0:00 CDT, Duration: 30 day, Stop date: 05/05/18 20:00:00 CDT Notes: (Same As: Pulmicort) Start Date: 04/06/18 Stop Date: 04/08/18 Status: Discontinued Reglan 10 mg, 2 mL, Route: IVP, Drug form: INJ, Q6H, Dosing Weight 82.3, kg, Priority: NOW, Start date: 04/07/18 10:57:00 CDT, Stop date: 04/07/18 18:01:00 CDT Notes: (Same as: Reglan) Start Date: 04/07/18 Stop Date: 04/07/18 Status: Completed Reglan 10 mg, 2 mL, Route: IVP, Drug form: INJ, Q6H, Dosing Weight 82.3, kg, Priority: NOW, Start date: 04/07/18 18:01:00 CDT, Stop date: 05/07/18 18:00:00 CDT Notes: (Same as: Reglan) Start Date: 04/07/18 Stop Date: 04/08/18 Status: Discontinued Reglan 10 mg oral tablet 10 mg=1 tab, PO, Before Meals & Bedtime, X 14 day, # 56 tab, 0 Refill(s), Pharmacy: [id number] Start Date: 04/08/18 Stop Date: 04/22/18 Status: Completed Reglan 10 mg oral tablet 10 mg, 1 tab, Route: PO, Drug form: TAB, Before Meals & Bedtime, Dosing Weight 82.3, kg, Start date: 04/08/18 16:30:00 CDT, Duration: 30 day, Stop date: 05/08/18 11:30:00 CDT Notes: (Same as: Reglan) Take 30 min before meals Start Date: 04/08/18 Stop Date: 04/08/18 Status: Discontinued Saline Flush 0.9% 10 mL, Route: IVP, Drug Form: INJ, Dosing Weight 88.182, kg, PRN, PRN Line Flush , Start date: 04/05/18 15:08:00 CDT, Duration: 30 day, Stop date: 05/05/18 15:07 :00 CDT Notes: (Same as: BD Posiflush) Start Date: 04/05/18 Stop Date: 04/05/18 Status: Discontinued Saline Flush 0.9% 10 ml, Route: IVP, Drug Form: INJ, Dosing Weight 86.364, kg, PRN, PRN Line Flush , Start date: 04/05/18 22:18:00 CDT, Duration: 30 day, Stop date: 05/05/18 22:17 :00 CDT Notes: (Same as: BD Posiflush) Start Date: 04/05/18 Stop Date: 04/08/18 Status: Discontinued Saline Flush 0.9% 10 ml, Route: IVP, Drug Form: INJ, Dosing Weight 86.364, kg, Q12H, Start date: 0 04/06/18 9:00:00 CDT, Duration: 30 day, Stop date: 05/05/18 21:00:00 CDT Notes: (Same as: BD Posiflush) Start Date: 04/06/18 Stop Date: 04/08/18 Status: Discontinued Senokot S 1 tab, Route: PO, Drug Form: TAB, Dosing Weight 82.3, kg, BID, NOW, Start date: 04/07/18 18:02:00 CDT, Stop date: 05/07/18 17:00:00 CDT Notes: (Same as Shahrzad) Equiv. to Tabitha-Colace. Start Date: 04/07/18 Stop Date: 04/08/18 Status: Discontinued sodium phosphate + Sodium Chloride 0.9% IV 250 mL 45 mmol, 15 mL, Route: IVPB, PRN, Dosing Weight 86.364, kg, PRN Abnormal Lab Res ult, Start date: 04/05/18 22:18:00 CDT, Duration: 30 day, Stop date: 05/05/18 22 :17:00 CDT, FOR ICU USE ONLY Start Date: 04/05/18 Stop Date: 04/06/18 Status: Discontinued sodium phosphate + Sodium Chloride 0.9% IV 250 mL 15 mmol, 5 mL, Route: IVPB, PRN, Dosing Weight 86.364, kg, PRN Abnormal Lab Resu lt, Start date: 04/05/18 22:18:00 CDT, Duration: 30 day, Stop date: 05/05/18 22: 17:00 CDT, FOR ICU USE ONLY Start Date: 04/05/18 Stop Date: 04/06/18 Status: Discontinued sodium phosphate + Sodium Chloride 0.9% IV 250 mL 30 mmol, 10 mL, Route: IVPB, PRN, Dosing Weight 86.364, kg, PRN Abnormal Lab Res ult, Start date: 04/05/18 22:18:00 CDT, Duration: 30 day, Stop date: 05/05/18 22 :17:00 CDT, FOR ICU USE ONLY Start Date: 04/05/18 Stop Date: 04/06/18 Status: Discontinued valsartan 160 mg, 1 tab, Route: PO, Drug form: TAB, Daily, Dosing Weight 86.364, kg, Start date: 04/06/18 9:00:00 CDT, Duration: 30 day, Stop date: 05/05/18 9:00:00 CDT Notes: Same as Ar Start Date: 04/06/18 Stop Date: 04/08/18 Status: Discontinued Xanax 1 mg oral tablet 2 mg, 2 tab, Route: PO, Drug form: TAB, Bedtime, Dosing Weight 86.364, kg, Prior ity: NOW, Start date: 04/06/18 2:20:00 CDT, Duration: 30 day, Stop date: 8 21:00:00 CDT Notes: With food or milk(Same as: Xanax) Start Date: 04/06/18 Stop Date: 04/08/18 Status: Discontinued Zofran 4 mg, Route: IVP, Drug form: INJ, ONCE, Dosing Weight 86.364, kg, Priority: STAT , Start date: 04/05/18 17:34:00 CDT, Stop date: 04/05/18 17:34:00 CDT Start Date: 04/05/18 Stop Date: 04/05/18 Status: Completed Zofran 4 mg, 2 mL, Route: IVP, Drug form: INJ, Q4H, Dosing Weight 82.3, kg, PRN Nausea, Start date: 04/07/18 10:57:00 CDT, Duration: 30 day, Stop date: 05/07/18 10:56: 00 CDT Notes: (Same as: Zofran) MEDICATION WASTE Product Size: 4 mgProduct Was lj: ___ mg Start Date: 04/07/18 Stop Date: 04/08/18 Status: Discontinued Zofran 4 mg, Route: IVP, Drug form: INJ, Q6H, Dosing Weight 82.3, kg, PRN Nausea, Start date: 04/06/18 13:01:00 CDT, Duration: 30 day, Stop date: 05/06/18 13:00:00 CDT Start Date: 04/06/18 Stop Date: 04/06/18 Status: Deleted Zofran 4 mg, 2 mL, Route: IVP, Drug form: INJ, Q8H, Dosing Weight 82.3, kg, PRN Nausea, Start date: 04/06/18 13:03:00 CDT, Duration: 30 day, Stop date: 05/06/18 13:02: 00 CDT Notes: (Same as: Zofran) MEDICATION WASTE Product Size: 4 mgProduct Was lj: ___ mg Start Date: 04/06/18 Stop Date: 04/07/18 Status: Discontinued Zofran ODT 4 mg, 1 tab, Route: PO, Drug form: TABDIS, Q4H, Dosing Weight 82.3, kg, PRN Naus ea, Start date: 04/08/18 16:41:00 CDT, Duration: 30 day, Stop date: 05/08/18 16: 40:00 CDT Notes: (Same as: Zofran ODT) Start Date: 04/08/18 Stop Date: 04/08/18 Status: Discontinued Zofran ODT 4 mg oral tablet, disintegrating 4 mg, PO, TID, PRN Nausea, # 12 tab, 0 Refill(s), Pharmacy: [id number] Start Date: 04/08/18 Stop Date: 04/11/18 Status: Ordered ZyrTEC 10 mg, 1 tab, Route: PO, Drug form: TAB, Daily, Dosing Weight 86.364, kg, Start date: 04/06/18 9:00:00 CDT, Duration: 30 day, Stop date: 05/05/18 9:00:00 CDT Notes: (Same As: Zyrtec) Start Date: 04/06/18 Stop Date: 04/08/18 Status: Discontinued Results ELECTROLYTES 1 2 3 Most recent to oldest [Reference Range]: 132 mEq/L *LOW* (04/08/18 6:00 AM) 123 mEq/L *LOW* (04/07/18 4:42 AM) 128 mEq/L *LOW* (04/06/18 6:17 AM) Sodium Lvl [135-145 mEq/L] 3.6 mEq/L (04/08/18 6:00 AM) 3.4 mEq/L *LOW* (04/07/18 4:42 AM) 3.5 mEq/L (04/06/18 6:17 AM) Potassium Lvl [3.5-5.1 mEq/L] 98 mEq/L (04/08/18 6:00 AM) 88 mEq/L *LOW* (04/07/18 4:42 AM) 93 mEq/L *LOW* (04/06/18 6:17 AM) Chloride Lvl [95-109 mEq/L] 26 mEq/L (04/08/18 6:00 AM) 25 mEq/L (04/07/18 4:42 AM) 26 mEq/L (04/06/18 6:17 AM) CO2 [24-32 mEq/L] 11.6 mEq/L (04/08/18 6:00 AM) 13.4 mEq/L (04/07/18 4:42 AM) 12.5 mEq/L (04/06/18 6:17 AM) AGAP [10.0-20.0 mEq/L] CHEM PANEL 1 2 3 Most recent to oldest [Reference Range]: 0.84 mg/dL (04/08/18 6:00 AM) 1.24 mg/dL (04/07/18 4:42 AM) 0.70 mg/dL (04/06/18 6:17 AM) Creatinine Lvl [0.50-1.40 mg/dL] 76 mL/min/1.73m2 1 *NA* (04/08/18 6:00 AM) 47 mL/min/1.73m2 2 *NA* (04/07/18 4:42 AM) 94 mL/min/1.73m2 3 *NA* (04/06/18:17 AM) eGFR 14 mg/dL (04/08/18 6:00 AM) 18 mg/dL (04/07/18 4:42 AM) 9 mg/dL (04/06/18 6:17 AM) BUN [7-22 mg/dL] 14 (04/05/18 5:02 PM) B/C Ratio [6-25] 122 mg/dL *HI* (04/08/18 6:00 AM) 115 mg/dL *HI* (04/07/18 4:42 AM) 117 mg/dL *HI* (04/06/18 6:17 AM) Glucose Lvl [70-99 mg/dL] 7.5 g/dL (04/05/18 5:02 PM) Total Protein [6.4-8.4 g/dL] 3.9 g/dL (04/08/18 6:00 AM) 4.0 g/dL (04/05/18 5:02 PM) Albumin Lvl [3.5-5.0 g/dL] 3.5 g/dL (04/05/18 5:02 PM) Globulin [2.7-4.2 g/dL] 1.1 (04/05/18 5:02 PM) A/G Ratio [0.7-1.6] 7.9 mg/dL *LOW* (04/08/18 6:00 AM) 7.9 mg/dL *LOW* (04/07/18 4:42 AM) 8.6 mg/dL (04/06/18 6:17 AM) Calcium Lvl [8.5-10.5 mg/dL] 2.9 mg/dL (04/06/18 6:17 AM) Phosphorus [2.5-4.5 mg/dL] 2.2 mg/dL (04/08/18 6:00 AM) 1.1 mg/dL *LOW* (04/06/18 6:17 AM) Magnesium Lvl [1.8-2.4 mg/dL] 27 unit/L (04/05/18 5:02 PM) ALT [0-65 unit/L] 17 unit/L (04/05/18 5:02 PM) AST [0-37 unit/L] 122 unit/L (04/05/18 5:02 PM) Alk Phos [39-136 unit/L] 0.3 mg/dL (04/05/18 5:02 PM) Bili Total [0.2-1.3 mg/dL] 72 unit/L *LOW* (04/05/18 5:02 PM) Lipase Lvl [73-393 unit/L] 272 mOsm/kg *LOW* (04/06/18 6:17 AM) Osmolality [280-300 mOsm/kg] 1Result Comment: The eGFR [...] 3 Most recent to oldest [Reference Range]: 86 unit/L (04/05/18 5:02 PM) Total CK [12-191 unit/L] 2.0 ng/mL (04/05/18 5:02 PM) CK MB [0.5-3.6 ng/mL] 2.3 (04/05/18 5:02 PM) CK MB Index [0.0-2.5] <0.02 ng/mL (04/05/18 5:02 PM) Troponin-I [0.00-0.40 ng/mL] 212 pg/mL *HI* (04/05/18 5:02 PM) proBNP [0-125 pg/mL] ENDOCRINOLOGY 1 2 3 Most recent to oldest [Reference Range]: 34.9 ug/dl *NA* (04/06/18 6:17 AM) Cortisol URINE CHEM 1 2 3 Most recent to oldest [Reference Range]: 314 mOsm/kg (04/06/18 9:51 PM) U Osmolality [300-800 mOsm/kg] 0-2 *ABN* (04/06/18 9:51 PM) U Eos [None Seen] URINE AND STOOL 1 2 3 Most recent to oldest [Reference Range]: Marked *ABN* (04/06/18 9:51 PM) Clear (04/05/18 8:00 PM) UA Turbidity [Clear] Yellow *NA* (04/06/18 9:51 PM) Yellow *NA* (04/05/18 8:00 PM) UA Color [Yellow] 5.0 (04/06/18 9:51 PM) UA pH [5.0-8.0] 6.5 (04/05/18 8:00 PM) UA pH [5.0-8.0] 1.012 (04/06/18 9:51 PM) UA Spec Grav [<=1.030] 1.010 (04/05/18 8:00 PM) UA Spec Grav [<=1.030] Negative mg/dL *NA* (04/06/18 9:51 PM) Negative mg/dL (04/05/18 8:00 PM) UA Glucose [Negative mg/dL] Small *ABN* (04/06/18 9:51 PM) Negative (04/05/18 8:00 PM) UA Blood [Negative] Trace mg/dL *ABN* (04/06/18 9:51 PM) Negative mg/dL *NA* (04/05/18 8:00 PM) UA Ketones [Negative mg/dL] Negative mg/dL (04/06/18 9:51 PM) Negative mg/dL (04/05/18 8:00 PM) UA Protein [Negative mg/dL] <=1.0 mg/dL *NA* (04/06/18 9:51 PM) UA Urobilinogen [0.1-1.0 mg/dL] 0.2 EU/dL (04/05/18 8:00 PM) UA Urobilinogen [0.1-1.0 EU/dL] Negative *NA* (04/06/18 9:51 PM) Negative *NA* (04/05/18 8:00 PM) UA Bili [Negative] Large *ABN* (04/06/18 9:51 PM) Negative (04/05/18 8:00 PM) UA Leuk Est [Negative] Negative (04/06/18 9:51 PM) Negative (04/05/18 8:00 PM) UA Nitrite [Negative] 83 /HPF *HI* (04/06/18 9:51 PM) UA WBC [0-5 /HPF] 0-2 /HPF (04/05/18 8:00 PM) UA WBC [None Seen /HPF] 10 /HPF *HI* (04/06/18 9:51 PM) 0-2 /HPF (04/05/18 8:00 PM) UA RBC [0-2 /HPF] Moderate /HPF *ABN* (04/06/18 9:51 PM) Occasional /HPF (04/05/18 8:00 PM) UA Bacteria [None Seen /HPF] Occasional /LPF *NA* (04/06/18 9:51 PM) Occasional /LPF (04/05/18 8:00 PM) UA Sq Epi [Few /LPF] 29 /LPF *HI* (04/06/18 9:51 PM) UA Hyal Cast [0-2 /LPF] Few /LPF *NA* (04/06/18 9:51 PM) UA Mucus [None Seen /LPF] HEMATOLOGY 1 2 3 Most recent to oldest [Reference Range]: 12.4 K/CMM *HI* (04/08/18 6:00 AM) 13.6 K/CMM *HI* (04/07/18 4:42 AM) 14.1 K/CMM *HI* (04/06/18 6:17 AM) WBC [3.7-10.4 K/CMM] 3.49 M/CMM *LOW* (04/08/18 6:00 AM) 3.66 M/CMM *LOW* (04/07/18 4:42 AM) 3.72 M/CMM *LOW* (04/06/18 6:17 AM) RBC [4.20-5.40 M/CMM] 10.6 g/dL *LOW* (04/08/18 6:00 AM) 10.9 g/dL *LOW* (04/07/18 4:42 AM) 11.6 g/dL *LOW* (04/06/18 6:17 AM) Hgb [12.0-16.0 g/dL] 31.3 % *LOW* (04/08/18 6:00 AM) 32.7 % *LOW* (04/07/18 4:42 AM) 33.5 % *LOW* (04/06/18:17 AM) Hct [36.0-48.0 %] 89.8 fL (04/08/18 6:00 AM) 89.4 fL (04/07/18 4:42 AM) 90.3 fL (04/06/18 6:17 AM) MCV [80.0-98.0 fL] 30.4 pg (04/08/18 6:00 AM) 29.7 pg (04/07/18 4:42 AM) 31.3 pg *HI* (04/06/18:17 AM) MCH [27.0-31.0 pg] 33.9 g/dL (04/08/18 6:00 AM) 33.3 g/dL (04/07/18 4:42 AM) 34.7 g/dL (04/06/18 6:17 AM) MCHC [32.0-36.0 g/dL] 12.8 % (04/08/18 6:00 AM) 12.8 % (04/07/18 4:42 AM) 13.1 % (04/06/18 6:17 AM) RDW [11.5-14.5 %] 7.1 fL *LOW* (04/08/18 6:00 AM) 6.7 fL *LOW* (04/07/18 4:42 AM) 6.5 fL *LOW* (04/06/18 6:17 AM) MPV [7.4-10.4 fL] 410 K/CMM (04/08/18 6:00 AM) 419 K/CMM (04/07/18 4:42 AM) 476 K/CMM *HI* (04/06/18 6:17 AM) Platelet [133-450 K/CMM] 76.5 % *HI* (04/08/18 6:00 AM) 82.7 % *HI* (04/06/18 6:17 AM) 87.2 % *HI* (04/05/18 5:02 PM) Segs [45.0-75.0 %] 13.6 % *LOW* (04/08/18 6:00 AM) 9.0 % *LOW* (04/06/18 6:17 AM) 8.1 % *LOW* (04/05/18 5:02 PM) Lymphocytes [20.0-40.0 %] 7.9 % (04/08/18 6:00 AM) 7.5 % (04/06/18 6:17 AM) 3.8 % (04/05/18 5:02 PM) Monocytes [2.0-12.0 %] 1.7 % (04/08/18 6:00 AM) 0.5 % (04/06/18 6:17 AM) 0.8 % (04/05/18 5:02 PM) Eosinophils [0.0-4.0 %] 0.3 % (04/08/18 6:00 AM) 0.3 % (04/06/18 6:17 AM) 0.1 % (04/05/18 5:02 PM) Basophils [0.0-1.0 %] 9.5 K/CMM *HI* (04/08/18 6:00 AM) 11.6 K/CMM *HI* (04/06/18 6:17 AM) 7.3 K/CMM (04/05/18 5:02 PM) Neutrophils # [1.5-8.1 K/CMM] 1.7 K/CMM (04/08/18 6:00 AM) 1.3 K/CMM (04/06/18 6:17 AM) 0.7 K/CMM *LOW* (04/05/18 5:02 PM) Lymphocytes # [1.0-5.5 K/CMM] 1.0 K/CMM *HI* (04/08/18 6:00 AM) 1.0 K/CMM *HI* (04/06/18 6:17 AM) 0.3 K/CMM (04/05/18 5:02 PM) Monocytes # [0.0-0.8 K/CMM] 0.2 K/CMM (04/08/18 6:00 AM) 0.1 K/CMM (04/06/18 6:17 AM) 0.1 K/CMM (04/05/18 5:02 PM) Eosinophils # [0.0-0.5 K/CMM] 12.9 seconds (04/05/18 5:02 PM) PT [12.0-14.7 seconds] 0.97 (04/05/18 5:02 PM) INR [0.85-1.17] 32.3 seconds (04/05/18 5:02 PM) PTT [22.9-35.8 seconds] BACTERIAL - SEROLOGY 1 2 3 Most recent to oldest [Reference Range]: Negative (04/06/18 3:35 AM) MRSA by PCR Microbiology Reports TEST: Culture: Urine STATUS: Auth (Verified) BODY SITE: SOURCE: Urine, [place] COLLECTED DATE/TIME: 04/06/18 3:35 AM FINAL REPORT <10,000 CFU/mL Skin [place] Immunizations No data available for this section [...] Former smoker; Type: Cigarettes; Ready to change: Yes; Concerns about tobacco use in household: Yes; Lives with someone who smokes; Exposure to Tobacco Smoke smoker; Cigarette Smoking Last 365 Days Yes; Reg Smoking Cessation Counseling Yes; Tobacco use per day: 4; Number of years: 20; Started at age: [age]; Stopped at age: 61; entered on: 04/06/18 Assessment and Plan Extracted from: Title: Hospitalist Progress Note * Author: Lety Love MD Date: 04/08/18 Impression and Plan 62-year-old F with PMH of chronic pain syndrome, fibromyalgia, HTN, COPD, PVD and pain pump removal 2 weeks ago presented with nausea and vomiting admitted for hypertensive urgency. Patient was initially admitted to the ICU for Cardene drip on 04/05. Patient has been off of the Cardene drip since 04/06, restarted on her home antihypertensives and transferred to acute care. At present continues with nausea and vomiting. Hypertensive urgency - improved HTN, controlled Nausea + vomitting, likely gastritis Chronic Pain Syndrome Fibromyalgia Anemia, chronic, stable Hyponatremia-improved Hypomagnesemia -improved Hypokalemia-improved Hypocalcemia Luekocytosis-trending down Malnutrition Plan: Continue home antihypertensives Continue Reglan. Zofran PRN. 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 if tolerating p.o.
--- OUTSIDE RECORDS SUMMARY | 2018-12-02 15:25 | XMS REPORT | Summary of Care ---
Author Author [facility] Organization [facility] Address Unknown Phone Unavailable Encounter GAEL [place](CLEMENTE) [id number] Date(s): 09/25/16 - 09/26/16 [facility] [address] [place] [address]- Discharge Disposition: Home or Self Care Attending Physician: Temitope Valera MD Admitting Physician: Temitope Valera MD Vital Signs 1 2 3 Most recent to oldest [Reference Range]: 165.1 cm (09/25/16 11:23 PM) 165.1 cm (09/25/16 6:14 PM) Height 98.0 DegF (09/26/16 12:22 PM) 97.1 DegF (09/26/16 7:04 AM) 98.2 DegF (09/26/16 4:29 AM) Temperature Oral [96.4-99.1 DegF] 124/75 mmHg (09/26/16 12:22 PM) 111/65 mmHg (09/26/16 7:04 AM) 92/61 mmHg (09/26/16 4:29 AM) Blood Pressure [90-140/60-90 mmHg] 18 BRMIN (09/26/16 12:22 PM) 18 BRMIN (09/26/16 7:41 AM) 18 BRMIN (09/26/16 7:04 AM) Respiratory Rate [14-20 BRMIN] 87 bpm (09/26/16 12:22 PM) 69 bpm (09/26/16 7:04 AM) 76 bpm (09/26/16 4:29 AM) Peripheral Pulse Rate [60-100 bpm] 65.773 kg (09/25/16 11:23 PM) 64.545 kg (09/25/16 6:14 PM) Weight 24.13 m2 (09/25/16 11:23 PM) 23.68 m2 (09/25/16 6:14 PM) Body Mass Index Problem List Condition Effective Dates Status Health Status Informant Acute Active pain(Confirmed)1 Angina Resolved pectoris(Confirmed) Bronchitis, Active chronic(Confirmed) Chronic Active pain(Confirmed)2 COPD (chronic Active obstructive pulmonary disease)(Confirmed) Degenerative disc Resolved disease at L5-S1 level(Confirmed) Shoulder Resolved disorder(Confirmed)3 DM (diabetes Active mellitus)(Confirmed) Emesis(Confirmed) Active Fibromyalgia(Confirm Resolved ed) HTN Active (hypertension)(Confi rmed) Bowel Resolved obstruction(Confirme d) HI (myocardial Resolved infarction)(Confirme d) Nausea(Confirmed) Active Pain Active assessment(Confirmed ) Scoliosis(Confirmed) Resolved 1s/p abdominal incision 2DX: fibromyalgia 3lt shoulder surgery x 3 Allergies, Adverse Reactions, Alerts Substance Reaction Severity Status Adhesive Tape Active aspirin Iodine,Miscellaneous Routes,granules Active Aspirin,800 MG,Oral (systemic),extended-release tablet Erythromycin,Miscellaneous Routes,compounding Compazine Tetracycline Hydrochloride,100 MG,Oral (systemic),capsule Doxycycline Hyclate,100 MG,Oral (systemic),capsule [place] Percodan Penicillin G Benzathine,300,000 U/ML,Injection (systemic),injection [place] Oil Percocet Darvocet N Darvon castor oil Active cephalexin Active codeine Active Compazine Active Darvocet N Active Darvon Active doxycycline Active erythromycin Active iodine topical Compazine Active Keflex Active Levaquin Active Lyrica Active mineral oil Active OxyCONTIN Active penicillin Active Percocet Active Percodan Active sulfa drugs Active Talwin Active tetracyclines Active traMADol Active Zithromax Active Medications Aciphex 20 mg, Route: PO, Drug form: ECTAB, TID, Dosing Weight 65.773, kg, Start date: 0 09/26/16 9:00:00 [employer], Duration: 30 day, Stop date: 10/25/16 17:00:00 [employer] Start Date: 09/26/16 Stop Date: 09/26/16 Status: Deleted albuterol 0.083% inhalation solution 2.5 mg, 0.5 mL, Route: NEB, Drug form: SOLN, RQ2H, Dosing Weight 65.773, kg, PRN Wheezing, Priority: Routine, Start date: 09/26/16 1:41:00 [employer], Duration: 30 day, Stop date: 10/26/16 1:40:00 [employer]ER Notes: SEE RT DOCUMENTATION MEDICATION WASTE Product Size: 2.5 mgProduc t Wasted: ___ mg Start Date: 09/26/16 Stop Date: 09/26/16 Status: Discontinued albuterol 0.083% inhalation solution 2.5 mg, 0.5 mL, Route: NEB, Drug form: SOLN, RQ2H, Dosing Weight 65.773, kg, PRN Wheezing, Priority: Routine, Start date: 09/26/16 0:18:00 [employer], Duration: 30 day, Stop date: 10/26/16 0:17:00 [employer]ER Notes: SEE RT DOCUMENTATION MEDICATION WASTE Product Size: 2.5 mgProduc t Wasted: ___ mg Start Date: 09/26/16 Stop Date: 09/26/16 Status: Deleted albuterol-ipratropium 2.5-0.5 mg inhalation solution 3 mL, Route: NEB, Drug Form: SOLN, Dosing Weight 65.773, kg, RQ6H, Start date: 0 09/26/16 2:00:00 [employer], Duration: 30 day, Stop date: 10/25/16 20:00:00 [employer]ST[employer]ER Notes: (Same as: Nicanor) Start Date: 09/26/16 Stop Date: 09/26/16 Status: Discontinued albuterol-ipratropium 2.5-0.5 mg inhalation solution 3 mL, Route: NEB, Drug Form: SOLN, Dosing Weight 64.545, kg, ONCE, STAT, Start d ate: 09/25/16 18:33:00 [employer], Stop date: 09/25/16 18:33:00 [employer]ER Notes: (Same as: Nicanor) Start Date: 09/25/16 Stop Date: 09/25/16 Status: Completed albuterol-ipratropium 2.5-0.5 mg inhalation solution 3 mL, Route: NEB, Drug Form: SOLN, Dosing Weight 65.773, kg, RQ6H, Start date: 0 09/26/16 2:00:00 [employer], Duration: 30 day, Stop date: 10/25/16 20:00:00 [employer]ER Notes: (Same as: Duoneb) Start Date: 09/26/16 Stop Date: 09/26/16 Status: Deleted Benicar 20 mg, 1 tab, Route: PO, Drug form: TAB, BID, Dosing Weight 65.773, kg, Start da te: 09/26/16 9:00:00 [employer], Duration: 30 day, Stop date: 10/25/16 21:00:00 [employer]ER Start Date: 09/26/16 Stop Date: 09/26/16 Status: Discontinued clindamycin 300 mg oral capsule 300 mg=1 cap, PO, Q6H, X 7 day, # 28 cap, 0 Refill(s) Start Date: 09/26/16 Stop Date: 10/03/16 Status: Ordered dextromethorphan-guaiFENesin 15 mg-200 mg/5 mL oral liquid 5 mL, Route: PO, Drug Form: LIQ, Dosing Weight 65.773, kg, Q6H, PRN Cough/Conges tion, Start date: 09/26/16 2:02:00 [employer], Duration: 30 day, Stop date: 10/26/16 2: 01:00 [employer]ER Notes: (dextromethorphan-guaifenesin 10-100/5 ml LIQ) (Same as: Jesusitussin-DM) Start Date: 09/26/16 Stop Date: 09/26/16 Status: Discontinued Dextrose 50% Syringe 25 gm, 50 mL, Route: IVP, Drug Form: INJ, Dosing Weight 65.773, kg, PRN, PRN Blo od Glucose Results, Start date: 09/26/16 1:48:00 [employer], Duration: 30 day, Stop [place] e: 10/26/16 1:47:00 [employer]ER Start Date: 09/26/16 Stop Date: 09/26/16 Status: Discontinued Dextrose 50% Syringe 12.5 gm, 25 mL, Route: IVP, Drug Form: INJ, Dosing Weight 65.773, kg, PRN, PRN B lood Glucose Results, Start date: 09/26/16 1:48:00 [employer], Duration: 30 day, Stop d ate: 10/26/16 1:47:00 [employer]ER Start Date: 09/26/16 Stop Date: 09/26/16 Status: Discontinued dicyclomine 20 mg, 1 tab, Route: PO, Drug form: TAB, TID, Dosing Weight 65.773, kg, Start da te: 09/26/16 8:00:00 [employer], Duration: 30 day, Stop date: 10/25/16 21:00:00 [employer]ER Notes: (Same as: Bentyl) Start Date: 09/26/16 Stop Date: 09/26/16 Status: Discontinued Dilaudid 4 mg, 2 tab, Route: PO, Drug form: TAB, Q8H-06, Dosing Weight 65.773, kg, Priori ty: NOW, Start date: 09/26/16 2:20:00 [employer], Duration: 30 day, Stop date: 10/25/16 22:00:00 [employer]ER Notes: (Same as: Dilaudid) Start Date: 09/26/16 Stop Date: 09/26/16 Status: Discontinued Dilaudid 4 mg oral tablet 4 mg=1 tab, PO, Q8H, 0 Refill(s) Start Date: 09/26/16 Status: Ordered doxepin 50 mg oral capsule 50 mg, 1 cap, Route: PO, Drug form: CAP, Bedtime, Dosing Weight 65.773, kg, Star t date: 09/26/16 1:47:00 [employer], Duration: 30 day, Stop date: 10/25/16 21:00:00 [employer]ER Notes: (Same as: SINEquan) Start Date: 09/26/16 Stop Date: 09/26/16 Status: Discontinued Flexeril 10 mg, 1 tab, Route: PO, Drug form: TAB, Q6H, Dosing Weight 65.773, kg, Start da te: 09/26/16 6:00:00 [employer], Duration: 30 day, Stop date: 10/26/16 0:00:00 [employer]ER Notes: (Same As: Flexeril) Start Date: 09/26/16 Stop Date: 09/26/16 Status: Discontinued glucagon 1 mg, Route: IM, Drug form: PDR/INJ, PRN, Dosing Weight 65.773, kg, PRN Blood Gl ucose Results, Start date: 09/26/16 1:48:00 [employer], Duration: 30 day, Stop date: 1:47:00 [employer]ER Start Date: 09/26/16 Stop Date: 09/26/16 Status: Discontinued hydrALAZINE 20 mg, 1 mL, Route: IVP, Drug form: INJ, Q4H, Dosing Weight 65.773, kg, PRN Hype rtension, Start date: 09/26/16 1:47:00 [employer], Duration: 30 day, Stop date: 7 1:46:00 [employer]ER Notes: (Same as: Apresoline)Push over 5 minutes Start Date: 09/26/16 Stop Date: 09/26/16 Status: Discontinued insulin aspart 4 unit, 0.04 mL, Route: SUB-Q, Drug form: SOLN, Bedtime, Dosing Weight 65.773, k g, PRN Blood Glucose Results, Start date: 09/26/16 1:48:00 [employer], Duration: 30 day , Stop date: 10/26/16 1:47:00 [employer]ST[employer]ER Notes: Roll in palms of hands gently; Do not shake vigorously. (Same as: Julia Samuel)"single patient use only"WASTE: F/P - Black; E - Municipal Trash Bin Stable f or 28 days at room temperature.Expires in days from Date Start Date: 09/26/16 Stop Date: 09/26/16 Status: Discontinued insulin aspart 3 unit, 0.03 mL, Route: SUB-Q, Drug form: SOLN, Bedtime, Dosing Weight 65.773, k g, PRN Blood Glucose Results, Start date: 09/26/16 1:48:00 [employer]ER, Duration: 30 day , Stop date: 10/26/16 1:47:00 [employer]ST[employer]ER Notes: Roll in palms of hands gently; Do not shake vigorously. (Same as: NovoBOGDAN Samuel)"single patient use only"WASTE: F/P - Black; E - Municipal Trash Bin Stable f or 28 days at room temperature.Expires in days from Date Start Date: 09/26/16 Stop Date: 09/26/16 Status: Discontinued insulin aspart 1 unit, 0.01 mL, Route: SUB-Q, Drug form: SOLN, Bedtime, Dosing Weight 65.773, k g, PRN Blood Glucose Results, Start date: 09/26/16 1:48:00 [employer]ER, Duration: 30 day , Stop date: 10/26/16 1:47:00 [employer]ST[employer]ER Notes: Roll in palms of hands gently; Do not shake vigorously. (Same as: Julia Samuel)"single patient use only"WASTE: F/P - Black; E - Municipal Trash Bin Stable f or 28 days at room temperature.Expires in days from Date Start Date: 09/26/16 Stop Date: 09/26/16 Status: Discontinued insulin aspart 2 unit, 0.02 mL, Route: SUB-Q, Drug form: SOLN, Bedtime, Dosing Weight 65.773, k g, PRN Blood Glucose Results, Start date: 09/26/16 1:48:00 [employer]ER, Duration: 30 day , Stop date: 10/26/16 1:47:00 [employer] INST[employer]ER Notes: Roll in palms of hands gently; Do not shake vigorously. (Same as: Julia Samuel)"single patient use only"WASTE: F/P - Black; E - Municipal Trash Bin Stable f or 28 days at room temperature.Expires in days from Date Start Date: 09/26/16 Stop Date: 09/26/16 Status: Discontinued insulin aspart 6 unit, 0.06 mL, Route: SUB-Q, Drug form: SOLN, TID-Before Meals, Dosing Weight 65.773, kg, PRN Blood Glucose Results, Start date: 09/26/16 1:48:00 [employer], Duratio n: 30 day, Stop date: 10/26/16 1:47:00 [employer]ST[employer]ER Notes: Roll in palms of hands gently; Do not shake vigorously. (Same as: Julia Samuel)"single patient use only"WASTE: F/P - Black; E - Municipal Trash Bin Stable f or 28 days at room temperature.Expires in days from Date Start Date: 09/26/16 Stop Date: 09/26/16 Status: Discontinued insulin aspart 10 unit, 0.1 mL, Route: SUB-Q, Drug form: SOLN, TID-Before Meals, Dosing Weight 65.773, kg, PRN Blood Glucose Results, Start date: 09/26/16 1:48:00 [employer]ER, Duratio n: 30 day, Stop date: 10/26/16 1:47:00 [employer] INST[employer]ER Notes: Roll in palms of hands gently; Do not shake vigorously. (Same as: NovoBOGDAN Samuel)"single patient use only"WASTE: F/P - Black; E - Municipal Trash Bin Stable f or 28 days at room temperature.Expires in days from Date Start Date: 09/26/16 Stop Date: 09/26/16 Status: Discontinued insulin aspart 8 unit, 0.08 mL, Route: SUB-Q, Drug form: SOLN, TID-Before Meals, Dosing Weight 65.773, kg, PRN Blood Glucose Results, Start date: 09/26/16 1:48:00 [employer]ER, Duratio n: 30 day, Stop date: 10/26/16 1:47:00 [employer] INST[employer]ER Notes: Roll in palms of hands gently; Do not shake vigorously. (Same as: NovoBOGDAN Samuel)"single patient use only"WASTE: F/P - Black; E - Municipal Trash Bin Stable f or 28 days at room temperature.Expires in days from Date Start Date: 09/26/16 Stop Date: 09/26/16 Status: Discontinued insulin aspart 2 unit, 0.02 mL, Route: SUB-Q, Drug form: SOLN, TID-Before Meals, Dosing Weight 65.773, kg, PRN Blood Glucose Results, Start date: 09/26/16 1:48:00 [employer]ER, Duratio n: 30 day, Stop date: 10/26/16 1:47:00 [employer] INST[employer]ER Notes: Roll in palms of hands gently; Do not shake vigorously. (Same as: NovoBOGDAN Samuel)"single patient use only"WASTE: F/P - Black; E - Municipal Trash Bin Stable f or 28 days at room temperature.Expires in days from Date Start Date: 09/26/16 Stop Date: 09/26/16 Status: Discontinued insulin aspart 4 unit, 0.04 mL, Route: SUB-Q, Drug form: SOLN, TID-Before Meals, Dosing Weight 65.773, kg, PRN Blood Glucose Results, Start date: 09/26/16 1:48:00 [employer]ER, Duratio n: 30 day, Stop date: 10/26/16 1:47:00 [employer] INST[employer]ER Notes: Roll in palms of hands gently; Do not shake vigorously. (Same as: Julia Samuel)"single patient use only"WASTE: F/P - Black; E - Municipal Trash Bin Stable f or 28 days at room temperature.Expires in days from Date Start Date: 09/26/16 Stop Date: 09/26/16 Status: Discontinued labetalol 20 mg, 4 mL, Route: IVP, Drug form: INJ, ONCE, Dosing Weight 64.545, kg, Priorit y: STAT, Start date: 09/25/16 18:19:00 [employer], Stop date: 09/25/16 18:19:00 [employer]ST[employer]ER Notes: (Same as: Normodyne, Trandate)Push over 2 minutes Give bolus over 2-3 mi nutes. Start Date: 09/25/16 Stop Date: 09/25/16 Status: Completed Lipitor 40 mg, 1 tab, Route: PO, Drug form: TAB, QPM, Dosing Weight 65.773, kg, Start da te: 09/26/16 16:00:00 [employer]ER, Duration: 30 day, Stop date: 10/25/16 16:00:00 [employer]ST[employer]ER Notes: (Same as: Lipitor) Start Date: 09/26/16 Stop Date: 09/26/16 Status: Discontinued Lovenox 40 mg, 0.4 mL, Route: SUB-Q, Drug form: INJ, [id number], Dosing Weight 65.773, kg, Start date: 09/26/16 2:00:00 [employer]ER, Duration: 30 day, Stop date: 10/25/16 2:00:00 [employer] INST[employer]ER Notes: (Same as: Lovenox) Start Date: 09/26/16 Stop Date: 09/26/16 Status: Discontinued methylPREDNISolone SODium SUCCinate 40 mg, 1 mL, Route: IVP, Drug form: INJ, Q8H, Dosing Weight 65.773, kg, Start da te: 09/26/16 8:00:00 [employer]ER, Duration: 30 day, Stop date: 10/26/16 0:00:00 [employer]ST[employer]ER Notes: (Same as:Solu-MEDROL, A-Methapred) Start Date: 09/26/16 Stop Date: 09/26/16 Status: Discontinued methylPREDNISolone SODium SUCCinate 125 mg, 2 mL, Route: IVP, Drug form: INJ, ONCE, Dosing Weight 64.545, kg, Priori ty: STAT, Start date: 09/25/16 18:33:00 [employer]ER, Stop date: 09/25/16 18:33:00 [employer] INST[employer]ER Notes: (Same as:Solu-MEDROL, A-Methapred) Start Date: 09/25/16 Stop Date: 09/25/16 Status: Completed methylPREDNISolone SODium SUCCinate 40 mg, 1 mL, Route: IVP, Drug form: INJ, Q8H, Dosing Weight 65.773, kg, Start da te: 09/26/16 8:00:00 [employer]ER, Duration: 30 day, Stop date: 10/26/16 0:00:00 [employer]ST[employer]ER Notes: (Same as:Solu-MEDROL, A-Methapred) Start Date: 09/26/16 Stop Date: 09/26/16 Status: Deleted morphine 60 mg/8 hr oral tablet, extended release 60 mg=1 tab, PO, Q8H, 0 Refill(s) Start Date: 09/26/16 Status: Ordered nitroglycerin 0.4 mg sublingual tablet 0.4 mg=1 tab, SL, Q5Min, PRN as needed for chest pain, 0 Refill(s) Start Date: 09/26/16 Status: Ordered normal saline inhalation solution 3 mL, Route: NEB, Drug Form: MISC, PRN, PRN Respiratory Protocol, Start date: 0:29:00 [employer], Duration: 30 day, Stop date: 10/26/16 0:28:00 [employer]ER Start Date: 09/26/16 Stop Date: 09/26/16 Status: Discontinued NS (Bolus) IV Route: IV, ONCE, Dosing Weight 64.545 kg, Start date: 09/25/16 19:27:00 [employer]ER, Sto p date: 09/25/16 19:27:00 [employer]ST[employer]ER Start Date: 09/25/16 Stop Date: 09/25/16 Status: Deleted Plavix 75 mg, 1 tab, Route: PO, Drug form: TAB, Daily, Dosing Weight 65.773, kg, Start date: 09/26/16 9:00:00 [employer]ER, Duration: 30 day, Stop date: 10/25/16 9:00:00 [employer]ST[employer]ER Notes: (Same As: Plavix) Start Date: 09/26/16 Stop Date: 09/26/16 Status: Discontinued potassium chloride 10 mEq, 100 mL, Route: IVPB, Drug form: INJ, Q1H, Dosing Weight 64.545, kg, Tota l Dose=20 meq, Start date: 09/25/16 20:00:00 [employer]ER, Duration: 2 doses or times, St op date: 09/25/16 21:00:00 [employer]ER, Peripheral Line Notes: Infuse at a rate of 10 mEq/hr.(Same as: KCL) Start Date: 09/25/16 Stop Date: 09/25/16 Status: Completed potassium chloride 10 mEq, 100 mL, Route: IVPB, Drug form: INJ, Q1H, Dosing Weight 65.773, kg, Tota l Dose=40 meq, Start date: 09/26/16 2:00:00 [employer]ER, Duration: 4 doses or times, Sto p date: 09/26/16 5:00:00 [employer]ER, Peripheral Line Notes: Infuse at a rate of 10 mEq/hr.(Same as: KCL) Start Date: 09/26/16 Stop Date: 09/26/16 Status: Canceled potassium chloride 20 mEq oral tablet, extended release 40 mEq, 2 tab, Route: PO, Drug form: ERTAB, ONCE, Dosing Weight 65.773, kg, Star t date: 09/26/16 1:47:00 [employer]ER, Stop date: 09/26/16 1:47:00 [employer] INST[employer]ER Notes: (Same as: K-Dur 20)"Do Not Crush" With food and full glass of water Start Date: 09/26/16 Stop Date: 09/26/16 Status: Discontinued potassium chloride 20 mEq oral tablet, extended release 40 mEq, Route: PO, Drug form: ERTAB, ONCE, Dosing Weight 64.545, kg, Priority: S TAT, Start date: 09/25/16 19:19:00 [employer]ER, Stop date: 09/25/16 19:19:00 [employer] INST[employer]ER Start Date: 09/25/16 Stop Date: 09/25/16 Status: Completed potassium chloride 20 mEq/100 mL intravenous solution 20 mEq, Route: IVPB, ONCE, Dosing Weight 64.545, kg, Priority: STAT, Start date: 09/25/16 19:19:00 [employer]ER, Stop date: 09/25/16 19:19:00 [employer] AND [employer]ST[employer]ER Start Date: 09/25/16 Stop Date: 09/25/16 Status: Discontinued predniSONE 20 mg oral tablet 20 mg=1 tab, PO, Daily, X 10 day, # 10 tab, 0 Refill(s) Start Date: 09/26/16 Stop Date: 10/06/16 Status: Ordered Protonix 40 mg, 1 tab, Route: PO, Drug form: ECTAB, BID, Start date: 09/26/16 9:00:00 [employer]ER , Duration: 30 day, Stop date: 10/25/16 17:00:00 [employer]ST[employer]ER Notes: Tablet should not be chewed or crushed.(Same as: Protonix) Start Date: 09/26/16 Stop Date: 09/26/16 Status: Discontinued Restasis 0.05% ophthalmic emulsion 1 drp, Route: BOTH EYES, BID, Drug form: DROP, Start date: 09/26/16 9:00:00 [employer]ST[employer]ER, Duration: 30 day, Stop date: 10/25/16 17:00:00 [employer] INST[employer]ER Notes: (Same as: Restasis) Start Date: 09/26/16 Stop Date: 09/26/16 Status: Discontinued Saline Flush 0.9% 10 mL, Route: IVP, Drug Form: INJ, Dosing Weight 64.545, kg, PRN, PRN Line Flush , Start date: 09/25/16 18:19:00 [employer]ER, Duration: 12 hr, Stop date: 09/26/16 6:18:0 0 [employer]ST[employer]ER Notes: (Same as: BD Posiflush) Start Date: 09/25/16 Stop Date: 09/26/16 Status: Completed sodium chloride 0.9% 500 ml INJ 500 mL 500 mL, Rate: 200 ml/hr, Infuse over: 2.5 hr, Route: IV, Dosing Weight 64.545 kg , Total Volume: 500, Start date: 09/25/16 19:30:00 [employer]ST[employer]ER, Duration: 30 day, Stop d ate: 10/25/16 19:29:00 [employer]ST[employer]ER Start Date: 09/25/16 Stop Date: 09/25/16 Status: Discontinued Tessalon Perles 200 mg, 2 cap, Route: PO, Drug form: CAP, TID, Dosing Weight 65.773, kg, PRN Cou gh, Start date: 09/26/16 9:03:00 [employer]ST[employer]ER, Duration: 30 day, Stop date: 10/26/16 9:02 :00 [employer] INSTALLER Notes: (Same As: Tessalon Perles)"Do Not Crush" Start Date: 09/26/16 Stop Date: 09/26/16 Status: Discontinued Xanax 1 mg oral tablet 2 mg, 2 tab, Route: PO, Drug form: TAB, Bedtime, Dosing Weight 65.773, kg, Start date: 09/26/16 21:00:00 [employer]ST[employer]ER, Duration: 30 day, Stop date: 10/25/16 21:00:00 [employer] AND [employer] INST[employer]ER Notes: With food or milk(Same as: Xanax) Start Date: 09/26/16 Stop Date: 09/26/16 Status: Canceled Xanax 1 mg oral tablet 2 mg=2 tab, PO, Bedtime, 0 Refill(s) Start Date: 09/26/16 Status: Ordered Xanax 1 mg oral tablet 2 mg, 2 tab, Route: PO, Drug form: TAB, Bedtime, Dosing Weight 65.773, kg, Start date: 09/26/16 2:00:00 [employer]ST[employer]ER, Duration: 30 day, Stop date: 10/25/16 21:00:00 [employer] INST[employer]ER Notes: With food or milk(Same as: Xanax) Start Date: 09/26/16 Stop Date: 09/26/16 Status: Discontinued ZyrTEC 10 mg, 1 tab, Route: PO, Drug form: TAB, Daily, Dosing Weight 65.773, kg, Start date: 09/26/16 9:00:00 [employer] AND [employer] INST[employer]ER, Duration: 30 day, Stop date: 10/25/16 9:00:00 [employer] AND [employer] INSTALLER Notes: (Same As: Zyrtec) Start Date: 09/26/16 Stop Date: 09/26/16 Status: Discontinued Results ELECTROLYTES Most recent to 1 2 oldest [Reference Range]: Sodium Lvl [135-145 134 mEq/L 134 mEq/L mEq/L] *LOW* *LOW* (09/26/16 4:45 AM) (09/25/16 6:46 PM) Potassium Lvl 4.4 mEq/L 2.6 mEq/L 1 [3.5-5.1 mEq/L] (09/26/16 4:45 AM) *CRIT* (09/25/16 6:46 PM) Chloride Lvl [95-109 101 mEq/L 96 mEq/L mEq/L] (09/26/16 4:45 AM) (09/25/16 6:46 PM) CO2 [24-32 mEq/L] 25 mEq/L 30 mEq/L (09/26/16 4:45 AM) (09/25/16 6:46 PM) AGAP [10.0-20.0 12.4 mEq/L 10.6 mEq/L mEq/L] (09/26/16 4:45 AM) (09/25/16 6:46 PM) 1Result Comment: Critical Result(s) called to Cole Ruiz RN at 09/25/2016 19:19 by [email or web address]. Read back OK. CHEM PANEL Most recent to 1 2 oldest [Reference Range]: Creatinine Lvl 0.49 mg/dL 0.58 mg/dL [0.50-1.40 mg/dL] *LOW* (09/25/16 6:46 PM) (09/26/16 4:45 AM) eGFR 107 mL/min/1.73m2 1 101 mL/min/1.73m2 2 *NA* *NA* (09/26/16 4:45 AM) (09/25/16 6:46 PM) BUN [7-22 mg/dL] 6 mg/dL 4 mg/dL *LOW* *LOW* (09/26/16 4:45 AM) (09/25/16 6:46 PM) B/C Ratio [6-25] 7 (09/25/16 6:46 PM) Glucose Lvl [70-99 187 mg/dL 131 mg/dL mg/dL] *HI* *HI* (09/26/16 4:45 AM) (09/25/16 6:46 PM) Total Protein 8.0 g/dL [6.4-8.4 g/dL] (09/25/16 6:46 PM) Albumin Lvl [3.5-5.0 3.1 g/dL g/dL] *LOW* (09/25/16 6:46 PM) Globulin [2.7-4.2 4.9 g/dL g/dL] *HI* (09/25/16 6:46 PM) A/G Ratio [0.7-1.6] 0.6 *LOW* (09/25/16 6:46 PM) Calcium Lvl 8.0 mg/dL 9.3 mg/dL [8.5-10.5 mg/dL] *LOW* (09/25/16 6:46 PM) (09/26/16 4:45 AM) Magnesium Lvl 1.2 mg/dL [1.8-2.4 mg/dL] *LOW* (09/26/16 4:45 AM) ALT [0-65 unit/L] 26 unit/L (09/25/16 6:46 PM) AST [0-37 unit/L] 21 unit/L (09/25/16 6:46 PM) Alk Phos [39-136 117 unit/L unit/L] (09/25/16 6:46 PM) Bili Total [0.2-1.3 0.5 mg/dL mg/dL] (09/25/16 6:46 PM) 1Result Comment: The eGFR is calculated [...] BMI. CARDIAC ENZYMES Most recent to 1 2 oldest [Reference Range]: Total CK [12-191 137 unit/L unit/L] (09/25/16 6:46 PM) CK MB [0.5-3.6 3.5 ng/mL ng/mL] (09/25/16 6:46 PM) CK MB Index 2.6 [0.0-2.5] *HI* (09/25/16 6:46 PM) Troponin-I <0.02 ng/mL [0.00-0.40 ng/mL] (09/25/16 6:46 PM) proBNP [0-125 pg/mL] 1376 pg/mL *HI* (09/25/16 6:46 PM) HEMATOLOGY Most recent to 1 2 oldest [Reference Range]: WBC [3.7-10.4 K/CMM] 11.3 K/CMM *HI* (09/25/16 6:46 PM) RBC [4.20-5.40 3.21 M/CMM M/CMM] *LOW* (09/25/16 6:46 PM) Hgb [12.0-16.0 g/dL] 12.4 g/dL (09/25/16 6:46 PM) Hct [36.0-48.0 %] 31.5 % *LOW* (09/25/16 6:46 PM) MCV [80.0-98.0 fL] 97.9 fL (09/25/16 6:46 PM) MCH [27.0-31.0 pg] 38.5 pg *HI* (09/25/16 6:46 PM) MCHC [32.0-36.0 39.3 g/dL g/dL] *HI* (09/25/16 6:46 PM) RDW [11.5-14.5 %] 13.0 % (09/25/16 6:46 PM) Platelet [133-450 601 K/CMM K/CMM] *HI* (09/25/16 6:46 PM) MPV [7.4-10.4 fL] 7.0 fL *LOW* (09/25/16 6:46 PM) Segs [45.0-75.0 %] 85.2 % *HI* (09/25/16 6:46 PM) Lymphocytes 9.6 % [20.0-40.0 %] *LOW* (09/25/16 6:46 PM) Monocytes [2.0-12.0 3.3 % %] (09/25/16 6:46 PM) Eosinophils [0.0-4.0 1.7 % %] (09/25/16 6:46 PM) Basophils [0.0-1.0 0.2 % %] (09/25/16 6:46 PM) Segs-Bands # 9.6 K/CMM [1.5-8.1 K/CMM] *HI* (09/25/16 6:46 PM) Lymphocytes # 1.1 K/CMM [1.0-5.5 K/CMM] (09/25/16 6:46 PM) Monocytes # [0.0-0.8 0.4 K/CMM K/CMM] (09/25/16 6:46 PM) Eosinophils # 0.2 K/CMM [0.0-0.5 K/CMM] (09/25/16 6:46 PM) RBC Morph See Note 1 (09/25/16 6:46 PM) Plt Morph Normal (09/25/16 6:46 PM) D-Dimer 1.22 ug/mL FEU *NA* (09/25/16 6:46 PM) 1Result Comment: RBC Agglutination Present Immunizations No data available for this section [...]
[2018-12-02 16:51] LABS: BILIRUBIN,URINE NEGATIVE (NEGATIVE); CLARITY,URINE HAZY (CLEAR); COLOR,URINE YELLOW (YELLOW); KETONES,URINE NEGATIVE (NEGATIVE); LEUKOCYTE ESTERASE ,URINE 2+ (NEGATIVE); NITRITE,URINE POSITIVE (NEGATIVE); PROTEIN,URINE DIPSTICK NEGATIVE (NEGATIVE); URINE UROBILINOGEN 0.2 mg/dL (0.2 - 1)
[2018-12-02 17:04] LABS: BACTERIA,URINE MANY /HPF; EPITHELIAL CELLS,URINE RARE /LPF; RBC,URINE 0-5 /HPF (0-5)
[2018-12-02 18:52] LABS: BASOPHILS % 0.2 % (0.0-1.0); EOSINOPHILS # (AUTO) 0.1 (0.0-0.4); EOSINOPHILS % 0.8 % (0.0-6.0); HEMATOCRIT 28.8 % (34.2-44.1); HEMOGLOBIN 9.2 g/dL (12.0-16.0); LYMPHOCYTES # (AUTO) 1.7 (1.0-3.2); LYMPHOCYTES % 15.1 % (18.0-39.1); MEAN CORPUSCULAR HEMOGLOBIN 29.7 pg (28-32); MEAN CORPUSCULAR HGB CONC 31.9 g/dL (31-35); MEAN CORPUSCULAR VOLUME 92.9 fL (81-99); MONOCYTES # (AUTO) 0.6 (0.2-0.8); MONOCYTES % 5.6 % (4.4-11.3); NEUTROPHILS # (AUTO) 8.7 (2.1-6.9); NEUTROPHILS % 77.9 % (38.7-80.0); PLATELET COUNT 295 x10e3/uL (140-360); RED CELL DISTRIBUTION WIDTH 13.2 % (11.7-14.4)
[2018-12-02 19:17] LABS: ALANINE AMINOTRANSFERASE 11 IU/L (0-55); ALBUMIN 3.7 g/dL (3.5-5.0); ALBUMIN/GLOBULIN RATIO 1.2 (0.8-2.0); ALKALINE PHOSPHATASE 88 IU/L (40-150); ANION GAP 10.8 mmol/L (8-16); BLOOD UREA NITROGEN 19 mg/dL (7-26); BUN/CREATININE RATIO 25 (6-25); CALCIUM 9.4 mg/dL (8.4-10.2); CARBON DIOXIDE 27 mmol/L (22-29); CHLORIDE 95 mmol/L (98-107); CREATININE, SERUM 0.77 mg/dL (0.57-1.11); EST GLOMERULAR FILTRATION RATE > 60 ML/MIN (60-); GLUCOSE 68 mg/dL (74-118); POTASSIUM 3.8 mmol/L (3.5-5.1); SODIUM 129 mmol/L (136-145)
[2018-12-02] MEDS ORDERED: DIATRIZOATE MEGL/DIATRIZOA SOD 30 ML BTL PO ONE (19:34)
[2018-12-02] MEDS ORDERED: ALBUTEROL0.63 MG/3 INH (19:52)
[2018-12-02] MEDS ORDERED: ACIPHEX20 MG PO (19:53)
[2018-12-02] MEDS ORDERED: LOSARTAN POTAS100 MG PO (19:56)
[2018-12-02] MEDS ORDERED: ONDANSETRON HCL INJ 2MG/ML 2ML 2 MG/ML VIAL IV ONE (20:09)
--- NOTE | 2018-12-02 20:39 | NUR ---
called to room, pt states that attempted to drink oral contrast for ct scan. pt states that immediately vomited. pt refusing to continue drinking contrast. informed. product demonstrator informed.
--- NOTE | 2018-12-02 22:18 | Diagnostic Imaging Report ---
EXAM: CT Abdomen and Pelvis WITHOUT contrast INDICATION: llq pain and blood in stool. COMPARISON: None. TECHNIQUE: Abdomen and pelvis were scanned utilizing a multidetector helical scanner from the lung base to the pubic symphysis without administration of IV contrast. Absence of intravenous contrast decreases sensitivity for detection of focal lesions and vascular pathology. Coronal and sagittal reformations were obtained. Routine protocol was performed. IV CONTRAST: None ORAL CONTRAST: Water COMPLICATIONS: None RADIATION DOSE: Total DLP: 295.3 mGy*cm Estimated effective dose: (DLP x 0.015 x size factor) mSv Dose modulation, iterative reconstruction, and/or weight based adjustment of the mA/kV was utilized to reduce the radiation dose to as low as reasonably achievable. FINDINGS: LINES and TUBES: None. LOWER THORAX: Unremarkable HEPATOBILIARY: No focal hepatic lesions. No biliary ductal dilation. GALLBLADDER: Absent SPLEEN: No splenomegaly. PANCREAS: No focal masses or ductal dilatation. ADRENALS: No adrenal nodules KIDNEYS/URETERS: No hydronephrosis. Left inferior pole 1.1 cm cyst. No stones. GI TRACT: No abnormal distention, wall thickening, or evidence of bowel obstruction. PELVIC ORGANS/BLADDER: Distended bladder. Hysterectomy. LYMPH NODES: No lymphadenopathy. VESSELS: Limited evaluation. Diffuse vascular calcifications. Aortoiliac bypass. PERITONEUM / RETROPERITONEUM: No free air or fluid. BONES: Stable mild T11 and L1 compression deformities. SOFT TISSUES: Gluteal injection granulomas. Midline laparotomy scar. IMPRESSION: No acute noncontrast CT abnormalities. Signed by: DR. Glynn Youssef MD on 12/02/2018 10:15 PM
[2018-12-02] MEDS ORDERED: LEVOFLOXACIN 500MG/D5W 100ML 100 ML IV SCH (22:45)
[2018-12-02] MEDS ORDERED: DEXTROSE 50% SYRINGE 50 ML IV PRN (22:45)
--- OUTSIDE RECORDS SUMMARY | 2018-12-02 22:57 | XMS REPORT | Clinical Summary ---
Author Author Publicate Organization [facility] Address Unknown Phone Unavailable Care Team Providers Care Barrel Plater Name Role Phone Andie San MD PCP Allergies Comments Active Allergy Reactions Severity Noted Date Adhesive Tape-Silicones 04/16/2017 Aspirin 04/16/2017 Azithromycin 04/16/2017 [place] Oil 04/16/2017 Codeine 04/16/2017 Prochlorperazine 04/16/2017 Propoxyphene 04/16/2017 N-Acetaminophen Propoxyphene 04/16/2017 Doxycycline 04/16/2017 Erythromycin 04/16/2017 Iodine 04/16/2017 Cephalexin 04/16/2017 Levofloxacin 04/16/2017 Pregabalin 04/16/2017 Mineral Oil 04/16/2017 Oxycodone 04/16/2017 Penicillins 04/16/2017 Oxycodone-Acetaminophen 04/16/2017 Oxycodone 04/16/2017 Mov-Yhlbcnnsn-Zzs Sulfa (Sulfonamide 04/16/2017 Antibiotics) Pentazocine Lactate 04/16/2017 [...] Type Phone Address Plan / Group xxxxxxxxxxx [employer] Advance Directives Patient has advance care planning documents on file. For more information, randall marshall contact: Silvino Aquino [address] [place] [address]
[2018-12-02] MEDS ORDERED: NITROFURANTOIN MACROCRYSTALS 100 MG CAP PO ONE (23:00)
[2018-12-02] MEDS: SODIUM CHLORIDE 0.9% 1000ML 1,000 ML IV SCH (23:00)
[2018-12-02] MEDS: ALBUTEROL/IPRATROPIUM 3 ML NEB NEB SCH (23:00)
[2018-12-02 23:15] VITALS: BP 140/70
[2018-12-03] VITALS (7 sets, daily range): BP systolic 114–140; BP diastolic 56–72
[2018-12-03] MEDS: HYDROMORPHONE 2MG/ML 2 MG/ML ML IV PRN ×6 (00:17→23:56)
[2018-12-03 01:11] LABS: HEMATOCRIT 25.7 % (34.2-44.1); HEMOGLOBIN 8.2 g/dL (12.0-16.0)
[2018-12-03] MEDS: ALBUTEROL/IPRATROPIUM 3 ML NEB NEB SCH ×6 (03:00→23:00)
[2018-12-03 06:21] LABS: ALANINE AMINOTRANSFERASE 8 IU/L (0-55); ALBUMIN 3.1 g/dL (3.5-5.0); ALBUMIN/GLOBULIN RATIO 1.5 (0.8-2.0); ALKALINE PHOSPHATASE 70 IU/L (40-150); ANION GAP 10.2 mmol/L (8-16); BLOOD UREA NITROGEN 19 mg/dL (7-26); BUN/CREATININE RATIO 28 (6-25); CALCIUM 8.4 mg/dL (8.4-10.2); CARBON DIOXIDE 24 mmol/L (22-29); CHLORIDE 101 mmol/L (98-107); CREATININE, SERUM 0.68 mg/dL (0.57-1.11); EST GLOMERULAR FILTRATION RATE > 60 ML/MIN (60-); GLUCOSE 102 mg/dL (74-118); POTASSIUM 4.2 mmol/L (3.5-5.1); SODIUM 131 mmol/L (136-145)
--- NOTE | 2018-12-03 06:30 | NUR ---
PAGED DR. Shreyas ALAMO AT THIS TIME REGARDING HGB 7.0. AWAITING CALL BACK
--- NOTE | 2018-12-03 07:15 | NUR ---
Rcvd patient in report this am. Patient is asleep in bed at this time. No s/s of distress noted
[2018-12-03] MEDS: INSULIN REGULAR, HUMAN 100 UNIT/1 ML 3ML VIAL SQ SCH ×4 (07:30→20:14)
[2018-12-03] MEDS: LOSARTAN POTASSIUM 100 MG TAB PO SCH (09:00)
[2018-12-03] MEDS: DILTIAZEM HCL 180 MG CAP ER PO SCH (09:00)
[2018-12-03] MEDS: NITROFURANTOIN MACROCRYSTALS 100 MG CAP PO SCH ×2 (09:00→17:26)
--- NOTE | 2018-12-03 09:24 | NUR ---
Spoke with Dr. Wheeler regarding low HGB and new order for 2 units of blood
[2018-12-03] MEDS ORDERED: FUROSEMIDE INJ 10 MG/ML 2 ML VIAL IV PRN (09:30)
[2018-12-03] MEDS ORDERED: SODIUM CHLORIDE 0.9% 250ML 250 ML IV ONE (09:30)
--- NOTE | 2018-12-03 10:01 | NUR ---
Patient had bright red bloody stool. Call placed to Dr. Dunn to inquire about a possible procedure
[2018-12-03 10:15] LABS: HEMOGLOBIN 6.1 g/dL (12.0-16.0)
--- NOTE | 2018-12-03 10:18 | NUR ---
Lab called and reported a HGB of 6.1.
[2018-12-03] MEDS: PANTOPRAZOLE 40 MG 10ML VIAL IV SCH (10:31)
[2018-12-03] MEDS: SODIUM CHLORIDE 0.9% 1000ML 1,000 ML IV SCH ×3 (10:31→22:39)
[2018-12-03] MEDS ORDERED: HYDROMORPHONE 1MG/1ML INJ IV PRN (11:00)
[2018-12-03] MEDS: ONDANSETRON HCL INJ 2MG/ML 2ML 2 MG/ML VIAL IV PRN ×4 (12:00→23:55)
[2018-12-03] MEDS ORDERED: SODIUM CHLORIDE 0.9% 250ML 250 ML ONE (12:36)
--- NOTE | 2018-12-03 13:10 | NUR ---
Patient receiving blood transfusion at this time. Patient tolerating well.
--- NOTE | 2018-12-03 14:10 | NUR ---
Patient blood pressure noted to be high at this time. Patient c/o pain. Informed that we would have to start a new IV to give her IV pain meds. Patient stated "I will be fine and I will wait."
--- NOTE | 2018-12-03 15:37 | NUR ---
Patient went to nuclear medicine at this time. No s/s of distress noted
--- NOTE | 2018-12-03 17:06 | NUR ---
Patient returned from nuclear medicine at this time. Blood transfusion completed at this time.
--- NOTE | 2018-12-03 18:28 | NUR ---
Second unit of blood started at this time. Patient tolerating well. Patient c/o severe pain. Almost time for prn pain meds.
--- NOTE | 2018-12-03 18:51 | Diagnostic Imaging Report ---
Tagged-RBC GI Bleed Study Clinical information: 63-year-old female with bright red blood per rectum; history of small bowel blockage in 2011.. Discussion: The patient's own red blood cells were labeled with 28 mCi of technetium-99m pertechnetate using the in vitro method (UltraTag). Dynamic images of the abdomen were obtained through 60 minutes. Distribution of tracer activity initially appears physiologic throughout the abdomen but within 5 minutes tracer appears in the right mid quadrant laterally adjacent to the tip of the liver and propagates a short distance in a circuitous pattern and continues to intensify during the remainder of the study. No abnormal accumulation of tracer is seen elsewhere within the gastrointestinal lumen. Impression: Small bowel bleed is detected in the right mid quadrant near the tip of the liver. Signed by: Dr. Sultana Lainez M.D. on 12/03/2018 6:47 PM
--- NOTE | 2018-12-03 19:09 | NUR ---
Call placed to Dr. Sams to inform of Bleed scan results. Dr. Sams ordered a STAT IR consult for an angioembolization. Call placed to IR and informed and gave Dr. Sams's cell number to call and talk to the radiologist.
--- NOTE | 2018-12-03 19:10 | NUR ---
REPORT TAKEN FROM AM RN.WALKING ROUNDS DONE.BLOOD IS TRANSFUSING.STABLE CONDITION.
[2018-12-03] MEDS ORDERED: PEG (High)/E-LYTE SOLN 4,000 ML BTL PO NR (21:30)
--- NOTE | 2018-12-03 22:00 | NUR ---
GASKET SUPERVISOR TOLD ME THAT (RADIOLOGY)INFORMED HER THAT NO SUPPLIES AVAILABLE FOR ANGIOEMBOLIZATION IN THIS FACILITY. IS AWARE OF THAT.HE CAME TO THE UNIT AND DISCUSSED WITH PT.HE ORDERED COLONOSCOPY AND EGD TOMORROW.BLOOD TRANSFUSION COMPLETED.PT STARTED TO DRINK GOLYTELY.SHE STARTED THREW UP.NOTIFIED TO .KEEP MONITOR THE PT.
[2018-12-04] VITALS (8 sets, daily range): BP systolic 136–186; BP diastolic 63–95
[2018-12-04 02:02] LABS: HEMOGLOBIN 8.7 g/dL (12.0-16.0)
--- NOTE | 2018-12-04 02:09 | NUR ---
BLOOD DRAWN AND SENT TO THE LAB FOR H&H.
[2018-12-04] MEDS: ALBUTEROL/IPRATROPIUM 3 ML NEB NEB SCH ×6 (03:00→23:00)
[2018-12-04] MEDS: HYDROMORPHONE 2MG/ML 2 MG/ML ML IV PRN ×5 (04:30→20:45)
[2018-12-04] MEDS: ONDANSETRON HCL INJ 2MG/ML 2ML 2 MG/ML VIAL IV PRN ×5 (04:30→20:45)
--- NOTE | 2018-12-04 04:50 | Consultation ---
DATE OF CONSULTATION: 12/03/2018 GI Consult Note CONSULTING PHYSICIAN: Lawrence Pretty MD REASON FOR CONSULT: Hematochezia. HISTORY OF PRESENTING ILLNESS: A 63-year-old white female, who got admitted through the emergency room with recurrent bouts of the imelda hematochezia for last 1 day. In the emergency room, she was noted to be hemodynamically stable. Not orthostatic. Hemoglobin initially was 9.2, which subsequently dropped down to 6.1 on the floor. She is not on any anticoagulants. No prior history of GI bleed. She has had several upper endoscopies and colonoscopies by Dr. Dunn. Last colonoscopy was done about 4-5 years ago. No polyps were removed. She denies any associated abdominal pain. Nuclear bleeding scan done on the floor showed active bleeding in the right upper quadrant area near the tip of the liver, suggestive of small bowel bleed. Subsequently, she was supposed to undergo angioembolization, due to lack of necessary accessories, this procedure could not be performed in this hospital. Transfer to [facility] was initiated. However, since afternoon, the patient has had 3-4 BMs, they were noted to be light brown. No bleeding. The patient is maintaining systolic blood pressure below 130. She has received 2 units of packed red blood cells so far. Posttransfusion hemoglobin will be checked. The patient denies any chronic use of NSAIDs. No history of any inflammatory bowel disease. No history of any diverticulosis. No prior GI bleed. REVIEW OF SYSTEMS: A 12-point system reviewed. Symptomatology is limited as per HPI. PAST MEDICAL HISTORY: Type 2 diabetes, coronary artery disease, status post cardiac catheterization, hypertension, GERD, and hyperlipidemia. PAST SURGICAL HISTORY: Appendectomy, cholecystectomy, hysterectomy, intestinal surgery (not clear which portion of the intestine was removed). FAMILY HISTORY: Noncontributory. Negative for any GI or COMMERCIAL ACCOUNTANT malignancies. SOCIAL HISTORY: No smoking, alcohol, or any illicit drug use. HOME MEDICATIONS: Albuterol inhaler, atorvastatin, clopidogrel, cyclosporine, dicyclomine, diltiazem, furosemide, hydromorphone, ipratropium, losartan, metformin, and rabeprazole. INPATIENT MEDICATIONS: Reviewed as per NOV. PHYSICAL EXAMINATION: VITAL SIGNS: Temperature 96.4, pulse 72, respirations 20, blood pressure 140/72, and oxygen saturation 98% on 2 L of nasal cannula. GENERAL: Not in any acute distress. HEENT: Oral mucosa is moist. Anicteric sclerae. CVS: S1, S2 regular. LUNGS: Bilaterally grossly clear. ABDOMEN: Soft. Healed surgical scars. Nontender. No palpable mass or hernia. Positive bowel sounds. EXTREMITIES: Warm. No leg edema. LABORATORY DATA: Labs show hemoglobin dropped down from 9.2 to 6.1, WBC 11.17, platelet count 295. Sodium 131, potassium 4.1, chloride 101, bicarb 24, BUN 19, creatinine 0.68, glucose 102. Liver enzymes normal. Albumin is 3.1. Urinalysis showed nitrite positive, leukocyte esterase 2+, wbc's 11-20. IMPRESSION: Hemodynamically stable. A small bowel bleed, this seems to have seized as the patient is no longer having any recurrent hematochezia. PLAN: IV fluid, clear liquid diet, start GoLYTELY. Monitor colonic effluent, monitor hemoglobin. We will hold the transfer to [facility] at this point of time. We will continue to monitor her clinically. Upper endoscopy as well as colonoscopy tomorrow. I thank Dr. Pretty for allowing me to participate in the care of this patient. Tay Sams MD SA/ANDRIY /[id number]
[2018-12-04 05:59] LABS: HEMATOCRIT 20.6 % (34.2-44.1)
[2018-12-04] MEDS: SODIUM CHLORIDE 0.9% 1000ML 1,000 ML IV SCH ×3 (06:01→22:39)
--- NOTE | 2018-12-04 06:14 | NUR ---
PT HAD TWO BOWEL MOVEMENTS WITH FRESH BLOOD .CONSENT SIGNED.LAB H&H AND CONDIITON OF PT INFORMED TO .NO NEW ORDERS RECEIVED.
--- NOTE | 2018-12-04 07:00 | NUR ---
REPORT GIVEN TO THE ONCOMING RN.WALKING ROUNDS DONE.STABLE CONDITION.
[2018-12-04] MEDS: INSULIN REGULAR, HUMAN 100 UNIT/1 ML 3ML VIAL SQ SCH ×4 (07:30→21:00)
[2018-12-04] MEDS: DILTIAZEM HCL 180 MG CAP ER PO SCH (09:00)
[2018-12-04] MEDS: LOSARTAN POTASSIUM 100 MG TAB PO SCH (09:00)
[2018-12-04] MEDS: PANTOPRAZOLE 40 MG 10ML VIAL IV SCH (09:00)
[2018-12-04] MEDS: NITROFURANTOIN MACROCRYSTALS 100 MG CAP PO SCH ×2 (09:00→17:00)
--- NOTE | 2018-12-04 09:21 | NUR ---
MD Shreyas ALAMO INTO SEE PT, DISCUSSED POC
[2018-12-04] MEDS ORDERED: FUROSEMIDE INJ 10 MG/ML 2 ML VIAL IV PRN (10:00)
[2018-12-04] MEDS ORDERED: SODIUM CHLORIDE 0.9% 250ML 250 ML IV ONE (10:00)
--- NOTE | 2018-12-04 11:00 | NUR ---
CONTROLLED ATMOSPHERIC FURNACE BRAZER TELEPHONED MD MACKEY FOR NURSE TO MAKE AWARE OF PT CURRENT HH, AWAITING CALL BACK
--- NOTE | 2018-12-04 12:04 | NUR ---
1150 SPOKE WITH MD MACKEY, STATES HE CANCELLED EGD/COLONOSCOPY DUE TO PT NOT FINISHING PREP, PER DR MACKEY PT IS "SUPPOSED TO HAVE ANGIOEMBOLIZATION TODAY, I SPOKE WITH DR FRANCE IN RADIOLOGY", 1152 TELEPHONED RADIOLOGY, SPOKE WITH DWIGHT, SHE "WILL SPEAK TO DR FRANCE AND LET ME KNOW IF PROCEDURE IS GOING TO HAPPEN", AWAITING CALL BACK 1203 SPOKE WITH DWIGHT, MADE AWARE OF MULTIPLE ALLERGIES, STATES SHE "WILL TALK TO DR FRANCE AND CALL ME BACK", TELEPHONED MD AKBAR PER MD Shreyas ALAMO'S ORDER
--- NOTE | 2018-12-04 12:59 | NUR ---
CASE MANAGEMENT INITIAL ASSESSMENT Yarn Man to bedside to discuss plan of care with patient/family. CM/SW role and care transitions discussed. Anticipated discharge plan discussed along with duration of care. CM/SW discussed patients right to make decisions in care. CM work hours given. Patient lives: PATIENT LIVES IN [address] STORY HOME IN [place], [place] WITH Admit/Transfer: ED Hospital/ER visits since last admit: NONE POA/Emergency contact: IS MACARENA [phone] DAUGHTER IS MCKENNA [phone]. Current/Previous Home Health: NONE PCP/Follow-up Care: DR. ZAPATA ON [address] Current/Previous DME: [facility] Medications (referring to index hospitalization or the first time you were in the hospital) a. Were changes made in your medications when you were in the hospital on [date of index hospitalization]? Yes No Not sure Explain: Note: If no or not sure, please skip to question d b. Did you understand the changes? Yes No Explain: c. Were you able to obtain your new medications right away? Yes Non/a SNF only Explain: d. Were you able to take your medications like the doctor wanted you to? Yes No Explain: e. Did the hospital give you an accurate, easy to understand list of medications when you left? Yes No n/a SNF only Explain: Scale of 1-10 how comfortable does patient feel with disease management in outpatient setting: Other Services: PATIENT HAS HOME O2 Employment Status: UNEMPLOYED Areas of Concerns: HGB LEVELS Referral Needs: NONE AT THIS TIME Education Needs: MEDICATIONS IMM/MILLER given and signed (if applicable): NONE Goal for discharge: DISCHARGE HOME WITH NO NEEDS CM left business card at the bedside with contact information. Name and number was also written on the patients whiteboard. Patient verbalized understanding of discussion. CM will follow-up with ongoing discharge and transition of care needs.
[2018-12-04 13:07] LABS: HEMOGLOBIN 7.3 g/dL (12.0-16.0)
[2018-12-04 13:18] LABS: HEMATOCRIT 22.3 % (34.2-44.1)
[2018-12-04] MEDS ORDERED: PEG (High)/E-LYTE SOLN 4,000 ML BTL PO ONE (13:30)
[2018-12-04] MEDS ORDERED: SODIUM CHLORIDE 0.9% 250ML 250 ML ONE (14:05)
--- NOTE | 2018-12-04 15:17 | NUR ---
MD aSms (GI) spoke with me on 12-04-18 @ 7200; he expressed his concern with the patient's refusal of GI preps before her procedure. MD Sams stated there was a conflict of interest between him and the patient. He offered several other GI doctors to the patient, and the patient refused. MD Sams offered for his partner, Moises Soto MD, to see the pateint on 12-05-18; the patient agreed.
--- NOTE | 2018-12-04 16:16 | NUR ---
1ST UNIT OF PRBC CONTINUES TO INFUSE, CRISTINA NOTED,
--- NOTE | 2018-12-04 17:34 | NUR ---
INTERVENTIONAL RADIOLOGY CONSULT NOTE DATE OF CONSULTATION: 12/04/2018 CONSULTING PHYSICIAN: Tay Sams MD PRIMARY PHYSICIAN: Lawrence Pretty MD REASON FOR CONSULT: Hematochezia. HISTORY OF PRESENTING ILLNESS: The patient is a 63 year old female with history of coronary artery disease, presented to [facility] on 12/03 with one day history of BRBPR. The patient has a histor y of constipation and is on Miralax. She noted that she had several episodes of BRBPR on 12/02 which prompted presentation. She was hemodynamically stable on presentation with Hb of 9.2, which subsequently dropped to 6.1 on the floor on 12/03. Received three units of pRBCs yesterday with subsequent improvement of Hb to 8.7. Tagged RBC study performed yesterday demonstrated focus suspicious for bleeding in the right upper quadrant, suspicious for small bowel etiology. GI and IR services were consulted. Due to lack of satisfactory embolization supplies on 12/03, angiography was deferred. The patient was initially to be transferred to [facility], however due to clinical stability and no further hematochezia, was kept at [facility]. She subsequently was being prepped for planned EGD and colonoscopy for today with Angel yesterday evening. However the patient did not complete her prep. She had two more episodes of BRBPR overnight, most recently 2 AM on 12/04. She has not had any BRBPR since then. She is currently receiving an additional unit of pRBCs. The patient denies melena, chest pain, shortness of breath, abdominal pain, vomiting, light headedness, dizziness, or headache. Denies hematemesis. She denies any history of diverticulosis, although she does have a history of constipation. Denies any history of prior GI bleeding. Denies NSAID use. Patient reportedly had a colonoscopy by Dr. Dunn 4-5 years prior, which was negative per the patient. Dr. Sams called me today AM with angiography request. IR supplies were reviewed today AM, and satisfactory catheter and coils were procured for the procedure. The procedure was initially planned for this afternoon. However during the consent process, the patient identified a history of seizures with iodinated contrast and refused angiogram. The patient was subsequently started on a liquid diet. She continues to be hemodynamically stable. Upon my discussion with the patient later this afternoon, she identified that she underwent a cardiac cath at [facility] with Dr. Clementina Lezama without issues. Upon discussion with Dr. Lezama by telephone, he states she was premedicated with one dose of Prednisone and Benadryl and underwent catheterization without evidence of breakthrough contrast reaction. Of note, the patient has a history of aortobifemoral bypass, and he had accessed the right groin during his catheterization which per him was the preferred access point. REVIEW OF SYSTEMS: A 10 point review of systems is negative except as indicated in the HPI. PAST MEDICAL HISTORY: Type 2 DM, CAD status post negative cardiac catherization per the patient, hypertension, GERD, and HLD PAST SURGICAL HISTORY: Appendectomy, cholecystectomy, hysterectomy, intestinal surgery (unclear what was resected), carotid endarterectomy on right FAMILY HISTORY: No history of inflammatory bowel disease, GI malignancies, or GI bleeding. SOCIAL HISTORY: No smoking, alcohol, or any illicit drug use. HOME AND INPATIENT MEDICATIONS: Reviewed per LMR. PHYSICAL EXAMINATION: VITAL SIGNS: HR: 88, BP: 186/77, RR: 16, oxygen saturation 96% on room air GENERAL: NAD HEENT: MMM, Anicteric sclerae. CVS: RRR, no m/g/r LUNGS: CTAB ABDOMEN: Soft. Healed surgical scars. NT/ND, no hepatosplenomegaly, no rebound or guarding EXTREMITIES: Warm. No leg edema, +2 right femoral pulse LABS: Reviewed. Most recent Hb 7.3. IMAGING: CT Abdomen/Pelvis without contrast 12/02/2018: no acute abnormalities Tagged RBC Study 12/03/18: Small bowel bleed in the right mid quadrant near the tip of the liver ASSESSMENT/PLAN: A 63 year old female with episodes of hematochezia, tagged RBC study from 12/03 with suspected small bowel bleed. Given the absence of hematochezia x 15 hours, the yield for angiogram at this time is likely to be low. Furthermore, the patient has been started on a liquid diet and is hemodynamically stable on the floor. While the patient initially stated that she was allergic to iodinated contrast, per discussion with her Caramel Candy Maker she underwent coronary angiography at OSH approximately 1 year prior with prednisone/Benadryl premedication without evidence of breakthrough reaction. After this was discussed with the [facility], she is now amenable to angiography and possible intervention. -Agree with pRBC transfusion with goal Hb of 8. -If the patient develops recurrent hematochezia or hemodynamic instability, please contact Interventional Radiology call team for mesenteric angiography, possible intervention. Note is made that Dr. Soto will be the GI physician and Dr. Black will be the IR physician covering this weekend. Thank you for the opportunity to participate in the care of this patient. Please don't hesitate to contact us with any questions or concerns. Enmanuel Parry MD Interventional Radiology Pager: [phone]
--- NOTE | 2018-12-04 18:17 | Progress Note ---
DATE: 12/04/2018 SUBJECTIVE: The patient has had two episodes of moderate amount of rectal bleeding, blood was maroonish red. No stool mixed with blood. No associated abdominal pain. No associated dizziness or any presyncope. The patient refused to drink the GoLYTELY. She drank about half a gallon, as per the patient, she just could not tolerate it and vomited it out. The patient is adamant that she is not going to drink GoLYTELY anymore. She also refused angioembolization. She stated that she is allergic to iodine and there is no way she would allow radiologist to use any kind of iodinated contrast. REVIEW OF SYSTEMS: GENERAL: Denies any headache, fever or chills. CVS: No chest pain or palpitation. RESPIRATORY: No cough or expectoration. MEDICATIONS: Reviewed as per NOV. PHYSICAL EXAMINATION: VITAL SIGNS: Temperature 97.4, pulse 83, respirations 20, blood pressure 136/95, oxygen saturation 99% on 2 L nasal cannula. GENERAL: Gross pallor, extremely agitated. HEENT: Oral mucosa is moist. ABDOMEN: Soft, nondistended. Healed prior surgical scar. Nontender. No mass or hernia. Positive bowel sounds. LABS: Hemoglobin climbed up to 8.7 from 6.1 after 2 units of packed red blood cells. This again dropped down to 7.0 this morning, and it was noted 7.3 this afternoon. ASSESSMENT: Lower gastrointestinal bleeding, source is not clear whether it is a small bowel or in colon. Bleeding is intermittent. She is no longer having any rectal bleeding, last two bleeding episodes were early in the morning. PLAN: In the presence of the patient's daughter as well as nurse in the room, I had a detailed discussion with the patient that without GoLYTELY colonoscopy cannot be done. She is asking to give her some kind of pills, which she can swallow as a result of that if she can get a bowel cleansing. I advised her that this is not a screening colonoscopy, this is a diagnostic colonoscopy for bleeding; therefore, she should be given polyethylene glycol solution. She is not ready to drink. I offered that we can put an NG tube through which we can shovel GoLYTELY to clean her bowel. The patient refused for NG as well. She gets very angry. There is hardly any kind of understanding between me and her. I offered her that if she is not happy with my care, then I can ask other kitman to take care of her. I suggested that Dr. Wheeler is other kitman who come to this hospital. The patient absolutely said no to Dr. Wheeler. I expressed my concern to the hospital administration that I am uncomfortable taking care of this patient. My partner, Dr. Gilda Soto is covering for the weekend. She will be seeing the patient tomorrow. I will also sign out the patient to Dr. Soto. At this point in time, we will continue to monitor her for bleeding. Monitor hemoglobin. Transfuse to keep the hemoglobin above 7. Tay Sams MD SA/ANDRIY /[id number] MTDD
--- NOTE | 2018-12-04 19:18 | NUR ---
WALKING ROUNDS PERFORMED, RECEIVED PT LAYING SEMI FOWLERS IN BED, AAOX3, RR EVEN AND NON-LABORED, O2 BY NC AT 2L. PT HOLDING HEAD AND REPORTS HEADACHE AT THIS TIME. PT STATES SHE WILL JUST TAKE THE DILAUDID WHEN IT IS AVAILABLE. LEFT PT LAYING SEMI FOWLERS IN BED, BED IN LOW LOCKED POSITION, SIDE RAILS UPX2, CALL LIGHT AND PHONE WITHIN REACH.
--- NOTE | 2018-12-04 22:11 | NUR ---
PT REPORTS 06/17 HEADACHE, STATES HEADACHE WAS MILDLY RELIEVED BY DILAUDID BUT NOW IT IS BACK TO 10. PAGE PLACED FOR MD Lm ALAMO CONCERNING PT MANAGEMENT.
[2018-12-04] MEDS ORDERED: IMITREX25 MG PO (22:25)
--- NOTE | 2018-12-04 22:54 | NUR ---
SPOKE WITH MD Lm ALAMO CONCERNING PT REPORTS OF MIGRAINE HEADACHE. NEW ORDERS RECEIVED.
[2018-12-04] MEDS ORDERED: SUMATRIPTAN SUCCINATE 25 MG TAB PO PRN (23:00)
[2018-12-05] VITALS (16 sets, daily range): BP systolic 135–188; BP diastolic 64–90
[2018-12-05] MEDS ORDERED: SODIUM CHLORIDE 0.9% 250ML 250 ML ONE (00:43)
[2018-12-05] MEDS: ONDANSETRON HCL INJ 2MG/ML 2ML 2 MG/ML VIAL IV PRN ×6 (00:45→22:15)
[2018-12-05] MEDS: HYDROMORPHONE 2MG/ML 2 MG/ML ML IV PRN ×6 (00:45→22:15)
--- NOTE | 2018-12-05 01:15 | NUR ---
INCREASED BLOOD TRANSFUSION RATE TO 100 ML/HR. WILL CONTINUE TO MONITOR.
[2018-12-05] MEDS ORDERED: SODIUM CHLORIDE 0.9% 250ML 250 ML IV ONE (02:30)
[2018-12-05] MEDS: ALBUTEROL/IPRATROPIUM 3 ML NEB NEB SCH ×6 (03:00→23:00)
[2018-12-05] MEDS: SODIUM CHLORIDE 0.9% 1000ML 1,000 ML IV SCH ×3 (06:08→20:40)
[2018-12-05 07:05] LABS: HEMATOCRIT 28.4 % (34.2-44.1); HEMOGLOBIN 9.5 g/dL (12.0-16.0)
[2018-12-05] MEDS: INSULIN REGULAR, HUMAN 100 UNIT/1 ML 3ML VIAL SQ SCH ×4 (07:30→21:00)
[2018-12-05] MEDS: DILTIAZEM HCL 180 MG CAP ER PO SCH ×2 (09:00→16:26)
[2018-12-05] MEDS: NITROFURANTOIN MACROCRYSTALS 100 MG CAP PO SCH ×2 (09:20→18:00)
[2018-12-05] MEDS: PANTOPRAZOLE 40 MG 10ML VIAL IV SCH (09:20)
[2018-12-05] MEDS: LOSARTAN POTASSIUM 100 MG TAB PO SCH (09:20)
--- NOTE | 2018-12-05 09:25 | NUR ---
MEDICATED PER MD ORDER FOR PAIN 06/17 "ALL OVER", PT REQUESTING BUCK MEDICATION, MADE AWARE THAT IMITREX IS PRN ONLY ONCE A DAY, PT REQUESTING TO TAKE LATER, "WILL LET DILAUDID WORK FOR NOW", EDUCATED TO NOT GET OOB WITHOUT CALLING FOR ASSISTANCE, VERBALIZED UNDERSTANDING, CALL LIGHT WITHIN REACH
--- NOTE | 2018-12-05 11:43 | NUR ---
MD Shreyas ALAMO INTO SEE PT, DISCUSSED POC
[2018-12-05 12:03] LABS: HEMATOCRIT 33.7 % (34.2-44.1); HEMOGLOBIN 11.2 g/dL (12.0-16.0)
--- NOTE | 2018-12-05 19:04 | NUR ---
WALKING ROUNDS PERFORMED, RECEIVED PT LAYING SEMI FOWLERS IN BED, AAOX3, RR EVEN AND NON-LABORED, O2 BY NC AT 2L. LEFT PT LAYING SEMI FOWLERS IN BED, BED IN LOW LOCKED POSITION, SIDE RAILS UPX2, CALL LIGHT AND PHONE WITHIN REACH.
[2018-12-05 19:36] LABS: HEMATOCRIT 29.2 % (34.2-44.1); HEMOGLOBIN 9.6 g/dL (12.0-16.0)
[2018-12-06] VITALS (7 sets, daily range): BP systolic 124–166; BP diastolic 58–89
[2018-12-06] MEDS: HYDROMORPHONE 2MG/ML 2 MG/ML ML IV PRN ×6 (02:15→22:25)
[2018-12-06] MEDS: ONDANSETRON HCL INJ 2MG/ML 2ML 2 MG/ML VIAL IV PRN ×6 (02:15→22:25)
[2018-12-06] MEDS: ALBUTEROL/IPRATROPIUM 3 ML NEB NEB SCH ×4 (03:00→15:00)
[2018-12-06] MEDS: SODIUM CHLORIDE 0.9% 1000ML 1,000 ML IV SCH ×3 (05:33→14:39)
[2018-12-06] MEDS: INSULIN REGULAR, HUMAN 100 UNIT/1 ML 3ML VIAL SQ SCH ×4 (07:30→20:24)
[2018-12-06] MEDS: PANTOPRAZOLE 40 MG 10ML VIAL IV SCH (10:00)
[2018-12-06] MEDS: LOSARTAN POTASSIUM 100 MG TAB PO SCH (10:00)
[2018-12-06] MEDS: NITROFURANTOIN MACROCRYSTALS 100 MG CAP PO SCH ×2 (10:00→17:30)
--- NOTE | 2018-12-06 14:36 | NUR ---
MEDICATED PER MD ORDER FOR "ALL OVER" , EDUCATED TO NOT GET OOB WITHOUT CALLING FOR ASSISTANCE, PT VERBALIZED UNDERSTANDING, CALL LIGHT WITHIN REACH
--- NOTE | 2018-12-06 16:00 | NUR ---
AMBULATING IN HALLWAY, STEADY GAIT, FAMILY AT SIDE
[2018-12-06] MEDS: DILTIAZEM HCL 180 MG CAP ER PO SCH (17:00)
--- NOTE | 2018-12-06 17:52 | NUR ---
MD COSME INTO SEE PT , DISCUSSED POC
[2018-12-06] MEDS ORDERED: CITRATE OF MAGNESIA 300ML BOTTLE PO ONE (18:30)
[2018-12-06] MEDS: POLYETHYLENE GLYCOL 3350 17 GM PACK PO SCH ×3 (18:30→22:30)
--- NOTE | 2018-12-06 18:33 | NUR ---
PT REFUSED 1ST DOSE OF DULCOLAX AT THIS TIME, STATES "WILL SEE IF I NEED IT", ADMINISTERED MAG CITRATE AND MIRALAX PER ORDER
--- NOTE | 2018-12-06 19:07 | NUR ---
WALKING ROUNDS PERFORMED, RECEIVED PT LAYING SEMI FOWLERS IN BED, AAOX3, RR EVEN AND NON-LABORED, O2 BY NC AT 2L. DISCUSSED WITH PT IMPORTANCE OF TAKING MEDICATION REGIMEN GI MD PRESCRIBED. PT AGREES AT THIS TIME. LEFT PT LAYING SEMI FOWLERS IN BED, BED IN LOW LOCKED POSITION, SIDE RAILS UPX2, CALL LIGHT AND PHONE WITHIN REACH.
[2018-12-06] MEDS: BISACODYL 5 MG TAB EC PO SCH (20:23)
[2018-12-07] VITALS (8 sets, daily range): BP systolic 142–189; BP diastolic 66–89
[2018-12-07] MEDS: POLYETHYLENE GLYCOL 3350 17 GM PACK PO SCH ×2 (00:30→02:25)
[2018-12-07] MEDS: SODIUM CHLORIDE 0.9% 1000ML 1,000 ML IV SCH ×2 (00:32→16:17)
[2018-12-07] MEDS: HYDROMORPHONE 2MG/ML 2 MG/ML ML IV PRN ×4 (02:25→20:43)
[2018-12-07] MEDS: ALBUTEROL/IPRATROPIUM 3 ML NEB NEB SCH ×6 (03:02→23:30)
[2018-12-07 06:00] LABS: BASOPHILS # (AUTO) 0.1 (0.0-0.1); BASOPHILS % 0.6 % (0.0-1.0); EOSINOPHILS # (AUTO) 0.4 (0.0-0.4); EOSINOPHILS % 3.9 % (0.0-6.0); HEMATOCRIT 28.1 % (34.2-44.1); HEMOGLOBIN 9.5 g/dL (12.0-16.0); LYMPHOCYTES # (AUTO) 1.6 (1.0-3.2); LYMPHOCYTES % 17.3 % (18.0-39.1); MEAN CORPUSCULAR HGB CONC 33.8 g/dL (31-35); MEAN CORPUSCULAR VOLUME 88.6 fL (81-99); MONOCYTES # (AUTO) 0.9 (0.2-0.8); MONOCYTES % 9.9 % (4.4-11.3); NEUTROPHILS # (AUTO) 6.2 (2.1-6.9); PLATELET COUNT 249 x10e3/uL (140-360); RED BLOOD COUNT 3.17 x10e6/uL (3.6-5.1); RED CELL DISTRIBUTION WIDTH 15.3 % (11.7-14.4)
[2018-12-07] MEDS: BISACODYL 5 MG TAB EC PO SCH ×2 (06:00)
[2018-12-07] MEDS: ONDANSETRON HCL INJ 2MG/ML 2ML 2 MG/ML VIAL IV PRN ×2 (06:25→20:43)
--- NOTE | 2018-12-07 07:14 | NUR ---
Received patient in report this morning. Patient is awake in bed. No S&S of distress at this time.
[2018-12-07] MEDS: INSULIN REGULAR, HUMAN 100 UNIT/1 ML 3ML VIAL SQ SCH ×4 (07:30→20:43)
[2018-12-07] MEDS: PANTOPRAZOLE 40 MG 10ML VIAL IV SCH (08:19)
[2018-12-07] MEDS: NITROFURANTOIN MACROCRYSTALS 100 MG CAP PO SCH ×2 (08:20→16:17)
[2018-12-07] MEDS: LOSARTAN POTASSIUM 100 MG TAB PO SCH (08:20)
--- NOTE | 2018-12-07 09:47 | NUR ---
Patient had BM, bright red and dark blood noted, otherwise clear.
--- NOTE | 2018-12-07 10:20 | NUR ---
PT TO THE FLOOR FROM MS1 AT THIS TIME. PT DENIES NEEDS AT THIS TIME.
--- NOTE | 2018-12-07 10:29 | NUR ---
Report given to Bartolome. Staff transferred patient via wheelchair to room 211.
--- NOTE | 2018-12-07 14:59 | NUR ---
PT OFF THE FLOOR TO ENDO AT THIS TIME.
--- NOTE | 2018-12-07 16:11 | NUR ---
PT BACK TO THE FLOOR FROM ENDO. PT REQUESTING PAIN AND NAUSEA MEDICATION. PT DENIES FURTHER NEEDS AT THIS TIME. VITALS WNL.
[2018-12-07] MEDS: DILTIAZEM HCL 180 MG CAP ER PO SCH (16:17)
[2018-12-07] MEDS ORDERED: LIDOCAINE HCL 2% LOCAL INJ 5 ML SDV VIAL INJ ONE (17:28)
[2018-12-07] MEDS ORDERED: PROPOFOL IV EMULSION 10 MG/ML 20 ML VIAL ONE (17:28)
--- NOTE | 2018-12-07 18:32 | NUR ---
Nutrition Screen Note RD Recommendation for Physician: -Consider GI soft, ADA 1800 diet. Plan of Care: RD following, monitoring for tolerance and adequacy Nutrition reason for involvement: Diet- clear/NPO for 6 days Primary Diagnose(s): GI Bleeding, UTI PMH: coronary artery disease, hypertension, carotid stenosis, multiple surgeries including appendectomy, cholecystectomy, hysterectomy, abdominal surgery because of infected mesh, history of diabetes, history of chronic pain syndrome, fibromyalgia, history of TIAs. Ht: 64 in Wt: 135 lb BMI: 23.2 kg/m2 IBW:[address] Assessment: 12/07: 63 YOF admitted for GI bleed, UTI. Pt reports being npo/clear liquids for approximately 6 days and that she is producing bloody stools. Pt was seen prior to her surgery today (pt was npo)-see surgery notes. Pt still complains of nausea, vomiting and abdominal pain. ADA diet will start at dinner today. Per pt, she will be on 24 hours for observation to see if she is tolerating her diet and produces any BM without blood after surgery. Pt had 1 BM at 09:55 today. Chart reviewed. Labs and meds reviewed. Will continue to monitor. Consult if PO is poor on regular diet. Current Diet: 1800 ADA Malnutrition Evaluation (12/07) The patient does not meet criteria for a specified degree of malnutrition at this time. Will re-evaluate at follow-up as appropriate. Diet Education Needs Assessment: Diet education not indicated. Nutrition Care Level: low Signed: Marta Buitrago, MS, RD, LD
[2018-12-07] MEDS ORDERED: MIDAZOLAM HCL 2 MG/2 ML VIAL ONE (19:14)
[2018-12-07] MEDS ORDERED: FENTANYL CITRATE/PF 100MCG/2 ML INJ ONE (19:14)
[2018-12-07 20:39] LABS: BASOPHILS # (AUTO) 0.1 (0.0-0.1); BASOPHILS % 0.5 % (0.0-1.0); EOSINOPHILS # (AUTO) 0.4 (0.0-0.4); EOSINOPHILS % 2.9 % (0.0-6.0); HEMATOCRIT 29.3 % (34.2-44.1); HEMOGLOBIN 9.6 g/dL (12.0-16.0); LYMPHOCYTES # (AUTO) 1.4 (1.0-3.2); LYMPHOCYTES % 10.7 % (18.0-39.1); MEAN CORPUSCULAR HEMOGLOBIN 29.7 pg (28-32); MEAN CORPUSCULAR HGB CONC 32.8 g/dL (31-35); MEAN CORPUSCULAR VOLUME 90.7 fL (81-99); MONOCYTES # (AUTO) 0.9 (0.2-0.8); MONOCYTES % 6.5 % (4.4-11.3); NEUTROPHILS # (AUTO) 10.3 (2.1-6.9); NEUTROPHILS % 78.9 % (38.7-80.0); PLATELET COUNT 263 x10e3/uL (140-360); RED BLOOD COUNT 3.23 x10e6/uL (3.6-5.1); RED CELL DISTRIBUTION WIDTH 15.7 % (11.7-14.4)
[2018-12-08] VITALS (9 sets, daily range): BP systolic 147–193; BP diastolic 67–77
[2018-12-08] MEDS: ONDANSETRON HCL INJ 2MG/ML 2ML 2 MG/ML VIAL IV PRN ×5 (00:30→20:45)
[2018-12-08] MEDS: HYDROMORPHONE 2MG/ML 2 MG/ML ML IV PRN ×5 (00:30→20:48)
[2018-12-08] MEDS: ALBUTEROL/IPRATROPIUM 3 ML NEB NEB SCH ×6 (03:00→23:25)
[2018-12-08 05:27] LABS: BASOPHILS # (AUTO) 0.1 (0.0-0.1); BASOPHILS % 0.5 % (0.0-1.0); EOSINOPHILS # (AUTO) 0.5 (0.0-0.4); EOSINOPHILS % 4.9 % (0.0-6.0); HEMATOCRIT 28.2 % (34.2-44.1); HEMOGLOBIN 9.4 g/dL (12.0-16.0); LYMPHOCYTES # (AUTO) 1.3 (1.0-3.2); LYMPHOCYTES % 13.6 % (18.0-39.1); MEAN CORPUSCULAR HEMOGLOBIN 29.7 pg (28-32); MEAN CORPUSCULAR HGB CONC 33.3 g/dL (31-35); MEAN CORPUSCULAR VOLUME 89.2 fL (81-99); MONOCYTES # (AUTO) 0.6 (0.2-0.8); MONOCYTES % 6.3 % (4.4-11.3); NEUTROPHILS % 74.3 % (38.7-80.0); PLATELET COUNT 269 x10e3/uL (140-360); RED BLOOD COUNT 3.16 x10e6/uL (3.6-5.1); RED CELL DISTRIBUTION WIDTH 15.6 % (11.7-14.4)
[2018-12-08] MEDS: SODIUM CHLORIDE 0.9% 1000ML 1,000 ML IV SCH ×2 (06:04→12:39)
--- NOTE | 2018-12-08 07:00 | NUR ---
BEDSIDE REPORT TAKEN FROM ROLLER LEVELER RN. PT DENIES NEEDS AT THIS TIME.
[2018-12-08] MEDS: INSULIN REGULAR, HUMAN 100 UNIT/1 ML 3ML VIAL SQ SCH ×4 (07:30→21:00)
[2018-12-08] MEDS: PANTOPRAZOLE 40 MG 10ML VIAL IV SCH (08:30)
[2018-12-08] MEDS: DILTIAZEM HCL 180 MG CAP ER PO SCH (08:31)
[2018-12-08] MEDS: LOSARTAN POTASSIUM 100 MG TAB PO SCH (08:31)
[2018-12-08] MEDS: NITROFURANTOIN MACROCRYSTALS 100 MG CAP PO SCH ×2 (08:31→16:30)
--- NOTE | 2018-12-08 14:29 | NUR ---
DR. AKBAR IN TO SEE PT. DR NOTED IF PT STILL STABLE IN AM, CAN DISCHARGE HOME.
[2018-12-09] MEDS: ONDANSETRON HCL INJ 2MG/ML 2ML 2 MG/ML VIAL IV PRN ×2 (00:47→04:47)
[2018-12-09] MEDS: HYDROMORPHONE 2MG/ML 2 MG/ML ML IV PRN ×4 (00:49→12:10)
[2018-12-09] MEDS: ALBUTEROL/IPRATROPIUM 3 ML NEB NEB SCH ×3 (02:35→10:31)
[2018-12-09 05:38] VITALS: BP 183/81
[2018-12-09 05:43] LABS: BASOPHILS # (AUTO) 0.1 (0.0-0.1); BASOPHILS % 0.6 % (0.0-1.0); EOSINOPHILS # (AUTO) 0.2 (0.0-0.4); EOSINOPHILS % 2.9 % (0.0-6.0); HEMATOCRIT 33.1 % (34.2-44.1); HEMOGLOBIN 10.6 g/dL (12.0-16.0); LYMPHOCYTES # (AUTO) 1.5 (1.0-3.2); LYMPHOCYTES % 17.4 % (18.0-39.1); MEAN CORPUSCULAR HEMOGLOBIN 29.4 pg (28-32); MEAN CORPUSCULAR VOLUME 91.9 fL (81-99); MONOCYTES # (AUTO) 0.7 (0.2-0.8); MONOCYTES % 8.2 % (4.4-11.3); NEUTROPHILS # (AUTO) 5.9 (2.1-6.9); NEUTROPHILS % 70.5 % (38.7-80.0); PLATELET COUNT 319 x10e3/uL (140-360); RED CELL DISTRIBUTION WIDTH 15.9 % (11.7-14.4)
--- NOTE | 2018-12-09 07:18 | NUR ---
REPORT GIVEN TO ONCOMING NURSE,WALKING ROUNDS MADE.PT RESTING IN BED WITH NO S/S OF DISTRESS.
[2018-12-09] MEDS: INSULIN REGULAR, HUMAN 100 UNIT/1 ML 3ML VIAL SQ SCH ×2 (07:30→11:30)
[2018-12-09 07:52] VITALS: BP 117/84
[2018-12-09 08:15] VITALS: BP 117/84
[2018-12-09] MEDS: PANTOPRAZOLE 40 MG 10ML VIAL IV SCH (08:15)
[2018-12-09] MEDS: LOSARTAN POTASSIUM 100 MG TAB PO SCH (08:15)
[2018-12-09] MEDS: NITROFURANTOIN MACROCRYSTALS 100 MG CAP PO SCH (08:15)
[2018-12-09] MEDS: SODIUM CHLORIDE 0.9% 1000ML 1,000 ML IV SCH (08:56)
[2018-12-09 12:01] VITALS: BP 148/75
--- NOTE | 2018-12-09 12:45 | NUR ---
Discharge instructions given to the patient, she verbalized understanding. IV to the right a/c was removed with tip intact.
--- NOTE | 2018-12-09 13:00 | NUR ---
Manual BP 148/90
--- NOTE | 2018-12-09 13:33 | NUR ---
Patient left the floor via wheelchair, she is discharged home.
== END 2018-12-09 13:33 | disposition home or self-care (01) | DRG 378 ==
LOC: ER 15:16 → ERHOLD 22:53 → MED/SURG 23:26 → MED/SURG2 12-07 10:17
PROC: 30233N1 Transfusion of Nonautologous Red Blood Cells into Peripheral Vein, Percutaneous Approach (ICD-10-PCS; 2018-12-03)
PROC: 0DJD8ZZ Inspection of Lower Intestinal Tract, Via Natural or Artificial Opening Endoscopic (ICD-10-PCS; principal; 2018-12-07 15:02)
PROC: 0DB78ZX Excision of Stomach, Pylorus, Via Natural or Artificial Opening Endoscopic, Diagnostic (ICD-10-PCS; 2018-12-07 15:02)
DX: K92.2 Gastrointestinal hemorrhage, unspecified (principal); D62 Acute posthemorrhagic anemia; K44.9 Diaphragmatic hernia without obstruction or gangrene; K29.70 Gastritis, unspecified, without bleeding; J44.9 Chronic obstructive pulmonary disease, unspecified; E11.9 Type 2 diabetes mellitus without complications; G89.29 Other chronic pain; K58.9 Irritable bowel syndrome, unspecified; Z79.4 Long term (current) use of insulin
CPT/HCPCS: 36415; 43239; 45378; 74176; 78278; 80053; 81001; 82948; 85014; 85018; 85025; 86850; 86900; 86920; 87086; 87186; 88305; 88312; 94640; 96374; 99284; A9512; J1940; J2001; J2250; J2405; J7030; J7050; P9016

== ENCOUNTER 2019-11-19 12:39 | Inpatient (IN) | payer OTHER ==
[~2019-11-19] VITALS: Ht 170.2 cm; Wt 54.0 kg
[~2019-11-19 12:39] MED LIST changes: +ACIPHEX20 MG PO; +ALBUTEROL0.63 MG/3 INH; +IMITREX25 MG PO; +LOSARTAN POTAS100 MG PO
[2019-11-19] MEDS ORDERED: SODIUM CHLORIDE 0.9% 1000ML 1,000 ML IV STA (12:50)
[2019-11-19 13:15] LABS: BASOPHILS # (AUTO) 0.1 (0.0-0.1); BASOPHILS % 0.3 % (0.0-1.0); EOSINOPHILS % 0.2 % (0.0-6.0); HEMATOCRIT 41.2 % (34.2-44.1); HEMOGLOBIN 14.2 g/dL (12.0-16.0); LYMPHOCYTES # (AUTO) 0.9 (1.0-3.2); LYMPHOCYTES % 3.9 % (18.0-39.1); MEAN CORPUSCULAR HEMOGLOBIN 30.5 pg (28-32); MEAN CORPUSCULAR HGB CONC 34.5 g/dL (31-35); MEAN CORPUSCULAR VOLUME 88.6 fL (81-99); MONOCYTES # (AUTO) 0.8 (0.2-0.8); MONOCYTES % 3.4 % (4.4-11.3); NEUTROPHILS # (AUTO) 21.6 (2.1-6.9); NEUTROPHILS % 91.1 % (38.7-80.0); PLATELET COUNT 466 x10e3/uL (140-360); RED BLOOD COUNT 4.65 x10e6/uL (3.6-5.1); RED CELL DISTRIBUTION WIDTH 13.1 % (11.7-14.4)
[2019-11-19 13:25] LABS: INR 0.93
[2019-11-19 13:26] LABS: PARTIAL THROMBOPLASTIN TIME 36.5 seconds (23.8-35.5)
[2019-11-19 13:32] LABS: ALBUMIN 4.2 g/dL (3.5-5.0); ANION GAP 15.9 mmol/L (8-16); CALCIUM 10.5 mg/dL (8.4-10.2); CREATININE, SERUM 1.89 mg/dL (0.57-1.11)
[2019-11-19 13:37] LABS: STREPTOCOCCUS GRP A ANTIGEN NEGATIVE (NEGATIVE)
[2019-11-19 13:39] LABS: CREATINE KINASE MB 2.8 ng/mL (0-5.0)
[2019-11-19 13:43] LABS: POTASSIUM 2.9 mmol/L (3.5-5.1)
[2019-11-19 13:43] LABS: INFLUENZAE A&B ANTIGEN (RAPID) NEGATIVE (NEGATIVE)
[2019-11-19] MEDS ORDERED: LEVOFLOXACIN 750MG/D5W 150ML 150 ML IV SCH (13:45)
[2019-11-19] MEDS ORDERED: POTASSIUM CHLORIDE 10MEQ/100ML 100 ML IV ONE (13:45)
--- NOTE | 2019-11-19 14:35 | Diagnostic Imaging Report ---
EXAMINATION: CHEST SINGLE (PORTABLE) INDICATION: Shortness of breath, vomiting COMPARISON: Chest radiograph 04/12/2018 FINDINGS: LINES/TUBES:EKG leads overlie the chest. LUNGS:The lungs are well-inflated. No focal consolidation or pulmonary edema. PLEURA:No pleural effusion or pneumothorax. MEDIASTINUM:The cardiomediastinal silhouette appears normal in size and shape. Atherosclerotic calcifications of the thoracic aorta. BONES/SOFT TISSUES:No acute osseous injury. ABDOMEN:No free air under the diaphragm. IMPRESSION: No focal pneumonia or pulmonary edema. Signed by: Theo Christensen MD on 11/19/2019 2:32 PM
[2019-11-19] MEDS ORDERED: POTASSIUM CHLORIDE 20MEQ/100ML 100 ML IV ONE (16:00)
[2019-11-19] MEDS ORDERED: ENOXAPARIN INJ 80 MG/0.8 ML SYR SC SCH (17:00)
[2019-11-19] MEDS: ONDANSETRON HCL INJ 2MG/ML 2ML 2 MG/ML VIAL IV PRN (17:14)
[2019-11-19 19:40] LABS: BILIRUBIN,URINE NEGATIVE (NEGATIVE); CLARITY,URINE SL CLOUDY (CLEAR); COLOR,URINE YELLOW (YELLOW); KETONES,URINE NEGATIVE (NEGATIVE); LEUKOCYTE ESTERASE ,URINE LARGE (NEGATIVE); NITRITE,URINE NEGATIVE (NEGATIVE); PROTEIN,URINE DIPSTICK 1+ (NEGATIVE); URINE UROBILINOGEN 0.2 mg/dL (0.2 - 1)
--- NOTE | 2019-11-19 19:49 | Consultation ---
DATE OF CONSULTATION: 11/19/2019 Pulmonary Critical Care Consultation CHIEF COMPLAINT: Dyspnea and cough. REFERRING PHYSICIAN: Dr. Dannie Martin. HISTORY OF PRESENT ILLNESS: The patient is a 64-year-old woman. She has a history of COPD. She uses Spiriva at home as well as a nebulizer and oxygen. She also had a vague history of congestive heart failure and has seen Dr. Lezama in the past. Last week, she noted some flu-like symptoms along with some muscle aches and myalgias. She had worsening cough. She went to her physician and received some medications that did not help. She went back to the doctor's office today with worsening dyspnea and wheezing. She was sent to the ER and found to have an elevated white blood cell count of 23. PAST MEDICAL HISTORY: 1. Chronic obstructive pulmonary disease. 2. Congestive heart failure. 3. Hypertension. 4. Diabetes. 5. Fibromyalgia. PAST SURGICAL HISTORY: 1. Appendectomy. 2. Cholecystectomy. 3. Hysterectomy. 4. Prior hernia repairs. 5. Colon resection. ALLERGIES: THE PATIENT IS ALLERGIC TO IODINE WELL PENICILLINS AND SULFA. THE PATIENT IS ALSO ALLERGIC TO AZITHROMYCIN WELL CODEINE AND DOXYCYCLINE. SHE IS ALSO ALLERGIC TO LEVOFLOXACIN. FAMILY HISTORY: Noncontributory. SOCIAL HISTORY: The patient was a prior smoker. She is not actively smoking. She is not a drinker. REVIEW OF SYSTEMS: She has no fever. She does have some cough. The patient is having no fever. She has no headache. She has no neck pain. She has no sore throat. She has some cough and some phlegm production. She reports some congestion and dyspnea. She has no chest pain. She has no abdominal pain. She has no nausea or vomiting. She has no diarrhea. She has no leg edema. PHYSICAL EXAMINATION: VITAL SIGNS: The patient is afebrile. The blood pressure is 174/75. Saturation is 99% on 2 L. HEENT: Shows no facial swelling or erythema. The oropharynx is normal. LYMPHATIC: Shows no submandibular, cervical, or supraclavicular adenopathy. CARDIAC: Reveals regular rate and rhythm with normal S1 and S2. There are no murmurs or rubs. LUNGS: Auscultation of lungs reveals a prolonged expiratory phase bilaterally. There is no wheezing. ABDOMEN: Soft, nontender. There is no rebound or guarding. EXTREMITIES: Shows no leg edema or calf tenderness. LABORATORY DATA: White blood cell count is 23.6 and hemoglobin is 14.2. The platelet count is 466. The potassium is 2.9 and the BUN to creatinine ratio is 32 to 1.89. Calcium is 10.5. The creatinine increased from her baseline of 0.69. Influenza is negative. RADIOGRAPHIC DATA: Chest x-ray shows no acute disease. IMPRESSION: 1. Leukocytosis and sepsis of unclear source. 2. Chronic obstructive pulmonary disease with acute exacerbation. 3. Acute kidney injury. 4. Hypokalemia. 5. Hypertension. PLAN: 1. Panculture patient. 2. Continue current antibiotics. 3. Urinalysis. 4. IV fluids. 5. Monitor renal function. Remy Mohr MD [facility]/MOD[facility] /[id number]
[2019-11-19 19:50] LABS: BACTERIA,URINE MANY /HPF; EPITHELIAL CELLS,URINE FEW /LPF
[2019-11-19] MEDS: MEROPENEM 1GM 100 ML IV SCH ×2 (22:03→22:19)
[2019-11-19] MEDS: SODIUM CHLORIDE 0.9% 1000ML 1,000 ML IV SCH ×2 (22:03→23:55)
--- NOTE | 2019-11-19 22:50 | NUR ---
Patient arrived to the unit via stretcher accompanied by ER nurse as a new admit. Admitting diagnoses: hypotension, weakness, leukocytosis. Pt alert and oriented x3. Ambulatory in room prn. On IVF and scheduled IV antibiotics. Pt c/o generalized pain and will be medicated accordingly with Dilaudid 8mg PO (see EMAR). Call huber within reach. Will monitor closely.
[2019-11-19] MEDS: HYDROMORPHONE HCL 2 MG TAB PO PRN (22:51)
[2019-11-19] MEDS ORDERED: POTASSIUM CHLORIDE 10MEQ/100ML 100 ML ONE (23:24)
[2019-11-20] VITALS (9 sets, daily range): BP systolic 89–114; BP diastolic 54–66
[2019-11-20] MEDS: MEROPENEM 1GM 100 ML IV SCH ×3 (06:20→21:03)
[2019-11-20] MEDS: PANTOPRAZOLE SOD 40 MG TABEC PO SCH (06:20)
[2019-11-20] MEDS: HYDROMORPHONE HCL 2 MG TAB PO PRN ×3 (06:35→22:15)
[2019-11-20 06:52] LABS: BASOPHILS % 0.3 % (0.0-1.0); EOSINOPHILS # (AUTO) 0.1 (0.0-0.4); EOSINOPHILS % 0.9 % (0.0-6.0); HEMATOCRIT 35.4 % (34.2-44.1); LYMPHOCYTES # (AUTO) 1.1 (1.0-3.2); LYMPHOCYTES % 7.8 % (18.0-39.1); MEAN CORPUSCULAR HGB CONC 33.9 g/dL (31-35); MEAN CORPUSCULAR VOLUME 88.5 fL (81-99); MONOCYTES % 7.4 % (4.4-11.3); NEUTROPHILS # (AUTO) 11.3 (2.1-6.9); NEUTROPHILS % 82.8 % (38.7-80.0); PLATELET COUNT 365 x10e3/uL (140-360)
[2019-11-20] MEDS: ONDANSETRON HCL INJ 2MG/ML 2ML 2 MG/ML VIAL IV PRN ×3 (07:10→19:06)
[2019-11-20 07:21] LABS: ALBUMIN 3.4 g/dL (3.5-5.0); ANION GAP 9.3 mmol/L (8-16); CALCIUM 9.5 mg/dL (8.4-10.2); CREATININE, SERUM 1.31 mg/dL (0.57-1.11); POTASSIUM 3.3 mmol/L (3.5-5.1)
--- NOTE | 2019-11-20 07:31 | Diagnostic Imaging Report ---
Examination: Single AP view of the chest. COMPARISON: Portable chest 11/19/2019 INDICATION: Flulike symptoms IMPRESSION: 1. Lines and Tubes: None 2. Lungs are grossly clear. No consolidation or effusion. 3. Cardiomediastinal silhouette is normal. Pulmonary vasculature is normal. 4. No acute bony abnormalities. Signed by: Dr. Hussein Fallon M.D. on 11/20/2019 7:28 AM
[2019-11-20 07:46] LABS: CREATINE KINASE MB 3.8 ng/mL (0-5.0)
[2019-11-20] MEDS: SODIUM CHLORIDE 0.9% 1000ML 1,000 ML IV SCH ×2 (07:55→17:00)
--- NOTE | 2019-11-20 07:55 | NUR ---
received bedside report. pt is alert and resting in bed, no s/s of distress. call light within reach and instructed pt to call RN for help.
[2019-11-20] MEDS: CLOPIDOGREL BISULFATE 75 MG TAB PO SCH (08:44)
[2019-11-20] MEDS: LOSARTAN POTASSIUM 100 MG TAB PO SCH (08:44)
[2019-11-20] MEDS: ATORVASTATIN 40 MG TAB PO SCH (08:44)
[2019-11-20] MEDS: DILTIAZEM HCL 180 MG CAP ER PO SCH (08:44)
[2019-11-20] MEDS ORDERED: ENOXAPARIN SODIUM INJ 100 MG/ML SYR SC SCH (09:00)
[2019-11-20] MEDS ORDERED: NON-FORMULARY MEDICATION (Atorvastatin Calcium (Lipitor) 40 MG) PO SCH (09:00)
[2019-11-20] MEDS ORDERED: METHYLPREDNISOLONE SOD SUCC 40 MG/ML VIAL 1ML IV STA (13:18)
[2019-11-20] MEDS ORDERED: ALBUTEROL/IPRATROPIUM 3 ML NEB NEB STA (13:18)
[2019-11-20] MEDS: ALBUTEROL/IPRATROPIUM 3 ML NEB NEB PRN ×3 (14:45→23:55)
[2019-11-20 15:08] LABS: CREATINE KINASE MB 3.2 ng/mL (0-5.0)
--- NOTE | 2019-11-20 15:17 | NUR ---
provided the pt a specimen cup for urine sample. informed pt to call RN when specimen is ready.
--- NOTE | 2019-11-20 15:45 | NUR ---
urine collection was taken to lab by DE
--- NOTE | 2019-11-20 16:42 | Progress Note ---
DATE: 11/20/2019 SUBJECTIVE: The patient complains of some vomiting. She also has some nausea. She notes some wheezing. PHYSICAL EXAMINATION: VITAL SIGNS: The patient is afebrile. The blood pressure is 98/54 and pulse is 79. Saturation is 100%. HEENT: Shows no facial swelling or erythema. CARDIAC: Reveals regular rate and rhythm with normal S1 and S2. There are no murmurs or rubs heard. LUNGS: Auscultation of lungs reveals wheezing bilaterally. There is a prolonged expiratory phase. ABDOMEN: Soft, nontender. There is no rebound or guarding. EXTREMITIES: Show no leg edema or calf tenderness. There is no cyanosis or clubbing. SKIN: Shows no rashes. NEUROLOGIC: Shows no focal abnormalities. LABORATORY DATA: White blood cell count is 13.7 and hemoglobin is 12. The platelet count is 365. Sodium is 128 and the BUN to creatinine ratio is 30 to 1.31. White blood cell count in the urine is 10-20. IMPRESSION: 1. Acute kidney injury. 2. Nausea and vomiting with associated dehydration. 3. Urinary tract infection with sepsis, present on admission. 4. Hypokalemia. 5. Hypertension. PLAN: 1. Continue IV fluids. 2. Monitor creatinine. 3. Continue antibiotics and await culture results. 4. Solu-Medrol x1, and bronchodilators. 5. GI consultation. Remy Mohr MD [facility]/MODL /[id number]
[2019-11-20] MEDS: MORPHINE SULFATE 15MG TAB CR PO SCH (17:00)
--- NOTE | 2019-11-20 19:09 | NUR ---
called RT on behalf of patient requesting breathing treatment
[2019-11-20] MEDS ORDERED: CYCLOBENZAPRINE5 MG (22:18)
[2019-11-20] MEDS ORDERED: DOXEPIN HCL25 MG PO (22:18)
[2019-11-20] MEDS ORDERED: ZYRTEC10 M3 PO (22:18)
[2019-11-20] MEDS ORDERED: SUMATRIPTAN SUCCINATE 25 MG TAB PO PRN (23:30)
[2019-11-20] MEDS: CYCLOBENZAPRINE HCL 10 MG TAB PO SCH (23:39)
[2019-11-20] MEDS: LORATADINE 10 MG TAB PO SCH (23:39)
[2019-11-21] VITALS (9 sets, daily range): BP systolic 96–123; BP diastolic 52–60
[2019-11-21] MEDS: ONDANSETRON HCL INJ 2MG/ML 2ML 2 MG/ML VIAL IV PRN ×4 (01:52→20:53)
[2019-11-21] MEDS: SODIUM CHLORIDE 0.9% 1000ML 1,000 ML IV SCH ×4 (01:52→20:57)
[2019-11-21] MEDS: MEROPENEM 1GM 100 ML IV SCH ×3 (06:06→21:57)
[2019-11-21] MEDS: HYDROMORPHONE HCL 2 MG TAB PO PRN ×3 (06:17→21:58)
[2019-11-21 06:32] LABS: BASOPHILS % 0.3 % (0.0-1.0); EOSINOPHILS # (AUTO) 0.1 (0.0-0.4); EOSINOPHILS % 0.8 % (0.0-6.0); HEMATOCRIT 32.7 % (34.2-44.1); LYMPHOCYTES # (AUTO) 1.1 (1.0-3.2); LYMPHOCYTES % 10.8 % (18.0-39.1); MEAN CORPUSCULAR HEMOGLOBIN 30.6 pg (28-32); MEAN CORPUSCULAR HGB CONC 33.6 g/dL (31-35); MEAN CORPUSCULAR VOLUME 90.8 fL (81-99); MONOCYTES # (AUTO) 0.7 (0.2-0.8); MONOCYTES % 7.2 % (4.4-11.3); NEUTROPHILS # (AUTO) 8.2 (2.1-6.9); NEUTROPHILS % 80.1 % (38.7-80.0); PLATELET COUNT 336 x10e3/uL (140-360)
[2019-11-21 06:55] LABS: ALANINE AMINOTRANSFERASE 9 IU/L (0-55); ALBUMIN 3.1 g/dL (3.5-5.0); ALKALINE PHOSPHATASE 78 IU/L (40-150); ANION GAP 10.6 mmol/L (8-16); BLOOD UREA NITROGEN 15 mg/dL (7-26); BUN/CREATININE RATIO 19 (6-25); CALCIUM 8.9 mg/dL (8.4-10.2); CARBON DIOXIDE 18 mmol/L (22-29); CHLORIDE 108 mmol/L (98-107); CREATININE, SERUM 0.77 mg/dL (0.57-1.11); EST GLOMERULAR FILTRATION RATE > 60 ML/MIN (60-); GLUCOSE 84 mg/dL (74-118); POTASSIUM 3.6 mmol/L (3.5-5.1); SODIUM 133 mmol/L (136-145)
--- NOTE | 2019-11-21 07:00 | NUR ---
received bedside report. pt is alert resting in bed, no s/s of distress. call light within reach and instructed pt to call RN for help.
[2019-11-21] MEDS: ALBUTEROL/IPRATROPIUM 3 ML NEB NEB PRN ×2 (07:20→10:50)
[2019-11-21] MEDS: PANTOPRAZOLE SOD 40 MG TABEC PO SCH ×2 (08:47→16:56)
[2019-11-21] MEDS: DICYCLOMINE HCL 20 MG TAB PO SCH ×3 (08:47→21:57)
[2019-11-21] MEDS: DILTIAZEM HCL 180 MG CAP ER PO SCH (08:48)
[2019-11-21] MEDS: LOSARTAN POTASSIUM 100 MG TAB PO SCH (08:48)
[2019-11-21] MEDS: CYCLOBENZAPRINE HCL 10 MG TAB PO SCH ×4 (08:48→21:57)
[2019-11-21] MEDS: METFORMIN HCL 500 MG TAB PO SCH (08:49)
[2019-11-21] MEDS: ATORVASTATIN 40 MG TAB PO SCH (08:49)
[2019-11-21] MEDS: CLOPIDOGREL BISULFATE 75 MG TAB PO SCH (08:49)
[2019-11-21] MEDS: MORPHINE SULFATE 15MG TAB CR PO SCH ×2 (08:50→16:56)
--- NOTE | 2019-11-21 15:41 | Progress Note ---
DATE: 11/21/2019 SUBJECTIVE: The patient still has some nausea and vomiting. She believes this is related to her gastroesophageal reflux. She denies any fever. She is not having chest pain. PHYSICAL EXAMINATION: VITAL SIGNS: The patient is afebrile. The blood pressure is 96/55 and the saturation is 99%. HEENT: Shows no facial swelling or erythema. CARDIAC: Reveals regular rate and rhythm with normal S1 and S2. LUNGS: Auscultation of lungs reveals clear breath sounds bilaterally. There is no wheezing. ABDOMEN: Soft and nontender. There is no rebound or guarding. EXTREMITIES: Shows no leg edema or calf tenderness. There is no cyanosis or clubbing. SKIN: Shows no rashes. NEUROLOGICAL: Shows no focal abnormalities. IMPRESSION: 1. Nausea and vomiting with associated dehydration. 2. Gastroesophageal reflux. 3. Acute kidney injury. 4. Urinary tract infection. 5. Hypokalemia. 6. Hypertension. PLAN: 1. Continue proton pump inhibitors and add famotidine at night. 2. Antiemetics as needed. 3. Complete antibiotics. 4. Await GI consultation. Remy Mohr MD [facility]/MODL /[id number]
[2019-11-21] MEDS ORDERED: TRIAMTERENE-HCTZ1 EA PO (16:09)
[2019-11-21] MEDS ORDERED: MECLIZINE HCL12.5 MG PO (16:09)
[2019-11-21] MEDS ORDERED: PROAIR HFA INH8.5 GM INH (16:09)
[2019-11-21] MEDS ORDERED: IPRAT-ALBUT 0.5-3 ML NEB (16:09)
--- NOTE | 2019-11-21 19:30 | NUR ---
received bedside report. pt is alert resting in bed, no s/s of distress. call light within reach and instructed pt to call RN for help
[2019-11-21] MEDS: FAMOTIDINE 20 MG TAB PO SCH (21:56)
[2019-11-21] MEDS: DOXEPIN HCL 25 MG CAP PO SCH (21:57)
[2019-11-21] MEDS: LORATADINE 10 MG TAB PO SCH (21:57)
[2019-11-22] VITALS (10 sets, daily range): BP systolic 100–142; BP diastolic 52–61
[2019-11-22] MEDS: ONDANSETRON HCL INJ 2MG/ML 2ML 2 MG/ML VIAL IV PRN ×3 (05:27→18:00)
[2019-11-22] MEDS: MEROPENEM 1GM 100 ML IV SCH ×3 (05:27→22:00)
[2019-11-22] MEDS: HYDROMORPHONE HCL 2 MG TAB PO PRN ×2 (06:07→18:00)
--- NOTE | 2019-11-22 07:10 | NUR ---
PATIENT IN BED RESTING WITH NO S/S OF DISCOMFORT. O2 IN PLACE VIA N/C. BED IN LOWER POSITION, CALL LIGHT AT REACH.
[2019-11-22] MEDS: ALBUTEROL/IPRATROPIUM 3 ML NEB NEB PRN (07:38)
[2019-11-22] MEDS: PANTOPRAZOLE SOD 40 MG TABEC PO SCH ×2 (07:50→17:07)
[2019-11-22] MEDS: SODIUM CHLORIDE 0.9% 1000ML 1,000 ML IV SCH ×3 (07:55→23:55)
[2019-11-22] MEDS: LOSARTAN POTASSIUM 100 MG TAB PO SCH (09:00)
[2019-11-22] MEDS: DICYCLOMINE HCL 20 MG TAB PO SCH ×3 (09:17→20:43)
[2019-11-22] MEDS: METFORMIN HCL 500 MG TAB PO SCH (09:17)
[2019-11-22] MEDS: ATORVASTATIN 40 MG TAB PO SCH (09:17)
[2019-11-22] MEDS: CLOPIDOGREL BISULFATE 75 MG TAB PO SCH (09:17)
[2019-11-22] MEDS: CYCLOBENZAPRINE HCL 10 MG TAB PO SCH ×4 (09:17→20:44)
[2019-11-22] MEDS: MORPHINE SULFATE 15MG TAB CR PO SCH ×2 (09:18→17:00)
--- NOTE | 2019-11-22 11:00 | NUR ---
IN TO SEE PATIENT. 2ND CALL PLACED TO DR AKBAR FOR CONSULT, SPOKE WITH REBECCA, MESSAGE LEFT. AWAITING CALL BACK.
--- NOTE | 2019-11-22 15:30 | NUR ---
PATIENT STATED THAT SHE DOES NOT WANT DR MACKEY WHO IS ROBOTIC TOY INVENTOR FOR DR AKBAR. OFFICE NOTIFIED. DAUB COLOR MIXER STATED THAT ANOTHER DOCTOR WILL COME AND SEE THE PATIENT.
[2019-11-22] MEDS ORDERED: DILTIAZEM HCL 180 MG CAP ER PO SCH (17:00)
--- NOTE | 2019-11-22 19:12 | NUR ---
BEDSIDE SHIFT REPORT GIVEN TO ON COMING NURSE.
--- NOTE | 2019-11-22 20:01 | NUR ---
RECEIVED PT LYING IN THE BED ,NO ACUTE DISTRESS NOTED .CALL LIGHT WITH IN REACH ,CONTINUE TO MONITOR
[2019-11-22] MEDS: LORATADINE 10 MG TAB PO SCH (20:43)
[2019-11-22] MEDS: DOXEPIN HCL 25 MG CAP PO SCH (20:44)
[2019-11-22] MEDS: FAMOTIDINE 20 MG TAB PO SCH (20:44)
[2019-11-23] VITALS: BP 137/63
[2019-11-23 00:26] VITALS: BP 142/61
--- NOTE | 2019-11-23 02:12 | Consultation ---
DATE OF CONSULTATION: 11/22/2019 GI Consult Note REASON FOR CONSULT: 1. Nausea and vomiting x1 week. 2. Weight loss of more than 20-30 pounds in the last 3-4 months. HISTORY OF PRESENTING ILLNESS: A 64-year-old female, who is very well known to me from her last admission last year for a small bowel bleed, which has spontaneously resolved. She got admitted this time with worsening of shortness of breath. She has COPD, uses oxygen at home. She is not a steroid dependent. However, she uses inhaled bronchodilator. She got admitted this time with worsening of COPD. She also has some component of underlying congestive heart failure. Currently being treated with antibiotic, bronchodilators. The patient is being followed here by canteen operator, Dr. Mohr. GI is being consulted for recurrent nausea, vomiting, which was worst in the initial phase of respiratory illness. However, nausea and vomiting have resolved. Reflux symptoms are controlled with PPI daily. The patient is concerned about losing weight, approximately 20 pounds in last 3-4 months. Per the patient, weight loss is unintentional. She was told about some kind of kidney tumor last year. Apparently, the patient followed with a urologist. She was told that the kidney tumor was benign. She is not sure if she has had any CT scan performed. Last CT scan available in our records is from 2018, that does not show any kidney mass. The patient denies any urinary symptoms. REVIEW OF SYSTEMS: Twelve-point system reviewed. Symptomatology is limited as per HPI. PAST MEDICAL HISTORY: 1. COPD, O2 dependent. 2. Congestive heart failure. 3. Type 2 diabetes. 4. Hypertension. 5. Fibromyalgia. PAST SURGICAL HISTORY: Appendectomy, cholecystectomy, hysterectomy, upper endoscopy as well as colonoscopy. She also has had a small bowel video capsule exam. SOCIAL HISTORY: Ex-smoker. Does not drink alcohol. Never used any illicit drugs. FAMILY HISTORY: Negative. ALLERGIES: EXTENSIVE LIST OF ALLERGIES DOCUMENTED IN THE CHART. HOME MEDICATIONS: Albuterol inhaler, atorvastatin, cetirizine, clopidogrel, cyclobenzaprine, cyclosporine, dicyclomine, diltiazem, doxepin, furosemide, hydromorphone, ipratropium/albuterol inhaler, losartan, meclizine, metformin, sublingual nitroglycerin, Zofran, rabeprazole, sumatriptan, triamterene/hydrochlorothiazide. INPATIENT MEDICATIONS: Reviewed as per NOV. PHYSICAL EXAMINATION: VITAL SIGNS: Temperature 97, pulse 77, respirations 20, blood pressure 142/61, oxygen saturation 94% on room air. GENERAL: Not in any apparent distress. HEENT: Oral mucosa is moist. Anicteric sclerae. CVS: S1, S2. Regular. LUNGS: Bilaterally grossly clear with occasional scattered rhonchi. ABDOMEN: Soft, nondistended, nontender. No palpable mass or hernia. Positive bowel sounds. EXTREMITIES: Warm. No leg edema. LABORATORY DATA: WBC has come down from 23.67 to 10.26, hemoglobin 11, hematocrit 32.7, MCV 90.8, and platelet count 336. Sodium 133, potassium 3.6, chloride 108, bicarb 18, BUN 15, creatinine 0.77, glucose 84. Liver enzymes normal. Influenza test negative. Urinalysis suggestive of urinary tract infection. PT 13, INR 0.93. IMAGING DATA: Chest x-ray showed lungs grossly clear. No consolidation or effusion. The pulmonary vasculature is normal. IMPRESSION: 1. Acute chronic obstructive pulmonary disease exacerbation, seems to be with leukocytosis. This is resolving. 2. Gastroesophageal reflux disease, under control with PPI and famotidine. 3. Unintentional weight loss. PLAN: Continue present medical management. Continue PPI and famotidine. I do not suspect any GI organic pathology for weight loss. The patient is being recommended to follow with Dr. Dunn with her weight chart. She can be discharged from GI standpoint, can follow with Dr. Dunn next week post discharge. I thank Dr. Wheeler for allowing me to participate in the care of this patient. Tay Sams MD [facility] /[id number]
[2019-11-23 04:00] VITALS: BP 115/55
[2019-11-23] MEDS: HYDROMORPHONE HCL 2 MG TAB PO PRN ×2 (05:00→05:30)
[2019-11-23] MEDS: MEROPENEM 1GM 100 ML IV SCH (05:21)
[2019-11-23 05:56] LABS: BASOPHILS # (AUTO) 0.1 (0.0-0.1); BASOPHILS % 1.1 % (0.0-1.0); EOSINOPHILS # (AUTO) 0.3 (0.0-0.4); HEMATOCRIT 32.1 % (34.2-44.1); HEMOGLOBIN 10.3 g/dL (12.0-16.0); LYMPHOCYTES % 22.8 % (18.0-39.1); MEAN CORPUSCULAR HEMOGLOBIN 29.9 pg (28-32); MEAN CORPUSCULAR HGB CONC 32.1 g/dL (31-35); MEAN CORPUSCULAR VOLUME 93.3 fL (81-99); MONOCYTES # (AUTO) 0.7 (0.2-0.8); NEUTROPHILS # (AUTO) 5.7 (2.1-6.9); NEUTROPHILS % 64.4 % (38.7-80.0); PLATELET COUNT 371 x10e3/uL (140-360); RED BLOOD COUNT 3.44 x10e6/uL (3.6-5.1); RED CELL DISTRIBUTION WIDTH 13.5 % (11.7-14.4)
[2019-11-23] MEDS: ONDANSETRON HCL INJ 2MG/ML 2ML 2 MG/ML VIAL IV PRN ×3 (06:00→13:04)
[2019-11-23 06:19] LABS: ANION GAP 7.1 mmol/L (8-16); BLOOD UREA NITROGEN 8 mg/dL (7-26); BUN/CREATININE RATIO 13 (6-25); CALCIUM 8.4 mg/dL (8.4-10.2); CARBON DIOXIDE 23 mmol/L (22-29); CHLORIDE 110 mmol/L (98-107); CREATININE, SERUM 0.63 mg/dL (0.57-1.11); EST GLOMERULAR FILTRATION RATE > 60 ML/MIN (60-); GLUCOSE 78 mg/dL (74-118); POTASSIUM 4.1 mmol/L (3.5-5.1); SODIUM 136 mmol/L (136-145)
--- NOTE | 2019-11-23 06:38 | NUR ---
PT C/O PAIN AND GIVEN ORDERED PAIN MEDICATION,CALL LIGHT WITH IN REACH ,CONTINUE TO MONITOR
--- NOTE | 2019-11-23 07:03 | NUR ---
BEDSIDE REPORT GIVEN TOT THE ONCOMING NURSE
[2019-11-23] MEDS: PANTOPRAZOLE SOD 40 MG TABEC PO SCH (07:30)
[2019-11-23 08:00] VITALS: BP 146/66
[2019-11-23] MEDS: DICYCLOMINE HCL 20 MG TAB PO SCH (08:22)
[2019-11-23] MEDS: METFORMIN HCL 500 MG TAB PO SCH (08:23)
[2019-11-23] MEDS: CYCLOBENZAPRINE HCL 10 MG TAB PO SCH ×2 (08:23→13:00)
[2019-11-23] MEDS: ATORVASTATIN 40 MG TAB PO SCH (08:24)
[2019-11-23] MEDS: CLOPIDOGREL BISULFATE 75 MG TAB PO SCH (08:24)
[2019-11-23] MEDS: MORPHINE SULFATE 15MG TAB CR PO SCH (08:24)
[2019-11-23] MEDS: SODIUM CHLORIDE 0.9% 1000ML 1,000 ML IV SCH (08:25)
[2019-11-23 08:26] VITALS: BP 146/66
[2019-11-23] MEDS: LOSARTAN POTASSIUM 100 MG TAB PO SCH (09:00)
[2019-11-23 12:00] VITALS: BP 131/80
--- NOTE | 2019-11-23 12:59 | NUR ---
pt discharged home and is asked to follow up in [address] Lm Wheeler. iv site removed, no swelling no redness to site.
== END 2019-11-23 13:00 | disposition home or self-care (01) | DRG 190 ==
LOC: ER 12:39 → ERHOLD 15:55 → MED/SURG3 23:00
DX: J44.1 Chronic obstructive pulmonary disease with (acute) exacerbation (principal); J18.9 Pneumonia, unspecified organism; N17.9 Acute kidney failure, unspecified; Z99.81 Dependence on supplemental oxygen; M79.7 Fibromyalgia; E11.51 Type 2 diabetes mellitus with diabetic peripheral angiopathy without gangrene; Z79.4 Long term (current) use of insulin; J44.0 Chronic obstructive pulmonary disease with (acute) lower respiratory infection; J20.9 Acute bronchitis, unspecified; K21.9 Gastro-esophageal reflux disease without esophagitis; I11.0 Hypertensive heart disease with heart failure; I50.9 Heart failure, unspecified
CPT/HCPCS: 36415; 71045; 80048; 80053; 81001; 82550; 82553; 82948; 83518; 83605; 84484; 85025; 85379; 85610; 85730; 87040; 87070; 87086; 87400; 93005; 93306; 94640; 99284; J1650; J2405; J2920; J3480; J7030

== ENCOUNTER 2019-12-02 21:18 | Inpatient (IN) | payer OTHER ==
[~2019-12-02] VITALS: Ht 165.1 cm; Wt 61.9 kg
[~2019-12-02 21:18] MED LIST changes: +CYCLOBENZAPRINE5 MG; +DOXEPIN HCL25 MG PO; +IPRAT-ALBUT 0.5-3 ML NEB; +MECLIZINE HCL12.5 MG PO; +PROAIR HFA INH8.5 GM INH; +TRIAMTERENE-HCTZ1 EA PO; +ZYRTEC10 M3 PO
[2019-12-02] MEDS ORDERED: PANTOPRAZOLE 40 MG 10ML VIAL IV STA (21:26)
[2019-12-02] MEDS ORDERED: ONDANSETRON HCL INJ 2MG/ML 2ML 2 MG/ML VIAL IV STA (21:26)
[2019-12-02] MEDS ORDERED: SODIUM CHLORIDE 0.9% 1000ML 1,000 ML IV ONE (21:30)
[2019-12-02 21:36] LABS: BASOPHILS # (AUTO) 0.1 (0.0-0.1); BASOPHILS % 0.7 % (0.0-1.0); EOSINOPHILS # (AUTO) 0.1 (0.0-0.4); EOSINOPHILS % 1.2 % (0.0-6.0); HEMATOCRIT 37.2 % (34.2-44.1); HEMOGLOBIN 12.5 g/dL (12.0-16.0); LYMPHOCYTES # (AUTO) 1.7 (1.0-3.2); LYMPHOCYTES % 14.4 % (18.0-39.1); MEAN CORPUSCULAR HEMOGLOBIN 30.4 pg (28-32); MEAN CORPUSCULAR HGB CONC 33.6 g/dL (31-35); MEAN CORPUSCULAR VOLUME 90.5 fL (81-99); MONOCYTES # (AUTO) 0.8 (0.2-0.8); MONOCYTES % 6.5 % (4.4-11.3); NEUTROPHILS # (AUTO) 9.2 (2.1-6.9); NEUTROPHILS % 76.6 % (38.7-80.0); PLATELET COUNT 337 x10e3/uL (140-360); RED BLOOD COUNT 4.11 x10e6/uL (3.6-5.1); RED CELL DISTRIBUTION WIDTH 12.7 % (11.7-14.4)
[2019-12-02 21:53] LABS: ALBUMIN 3.8 g/dL (3.5-5.0); ALBUMIN/GLOBULIN RATIO 1.3 (0.8-2.0); ANION GAP 15.8 mmol/L (8-16); CALCIUM 9.4 mg/dL (8.4-10.2); CREATININE, SERUM 1.25 mg/dL (0.57-1.11); POTASSIUM 4.8 mmol/L (3.5-5.1)
[2019-12-02 22:04] LABS: AMYLASE 48 U/L (25-125); LIPASE 7 U/L (8-78)
[2019-12-02 22:11] LABS: CREATINE KINASE MB 3.9 ng/mL (0-5.0)
--- NOTE | 2019-12-02 22:35 | NUR ---
pt. allergic to aspirn
[2019-12-02] MEDS ORDERED: ASPIRIN 81 MG CHEW TAB ONE (22:38)
[2019-12-02] MEDS ORDERED: ASPIRIN 81 MG CHEW TAB PO ONE (22:45)
[2019-12-02 22:46] LABS: INR 0.89; PROTHROMBIN TIME 12.6 seconds (11.9-14.5)
--- NOTE | 2019-12-02 23:50 | Diagnostic Imaging Report ---
EXAM: CT Abdomen and Pelvis WITHOUT contrast INDICATION: Back pain, nausea, vomiting COMPARISON: None. TECHNIQUE: Abdomen and pelvis were scanned utilizing a multidetector helical scanner from the lung base to the pubic symphysis without administration of IV contrast. Absence of intravenous contrast decreases sensitivity for detection of focal lesions and vascular pathology. Coronal and sagittal reformations were obtained. Routine protocol was performed. IV CONTRAST: None ORAL CONTRAST: Gastrografin COMPLICATIONS: None RADIATION DOSE: Total DLP: 178 mGy*cm Estimated effective dose: (DLP x 0.015 x size factor) mSv CTDIvol has been reviewed. It is below the limits set by the Radiation Protocol Committee (RPC). Dose modulation, iterative reconstruction, and/or weight based adjustment of the mA/kV was utilized to reduce the radiation dose to as low as reasonably achievable. FINDINGS: LINES and TUBES: None. LOWER THORAX: Emphysematous changes in the lower lungs. HEPATOBILIARY: No focal hepatic lesions. No biliary ductal dilation. GALLBLADDER: There are cholecystectomy clips. SPLEEN: No splenomegaly. PANCREAS: No focal masses or ductal dilatation. ADRENALS: No adrenal nodules KIDNEYS/URETERS: No hydronephrosis. No cystic or solid mass lesions. No stones. GI TRACT: No abnormal distention, wall thickening, or evidence of bowel obstruction. Appendix has been removed per history. PELVIC ORGANS/BLADDER: Hysterectomy. No adnexal masses. Urinary bladder unremarkable. LYMPH NODES: No lymphadenopathy. VESSELS: Aortobiiliac bypass grafts. Dense calcifications in the aorta and quileute iliac arteries. PERITONEUM / RETROPERITONEUM: No free air or fluid. BONES: Subtle L1 vertebral body superior endplate compression fracture. Degenerative changes in the spine hips and pelvis. Low bone mineral density. SOFT TISSUES: Benign calcified gluteal subcutaneous granulomas.. IMPRESSION: 1. Mild L1 vertebral body superior endplate compression fracture. Low bone mineral density. 2. Moderate colonic stool burden, correlate for constipation. 3. Pulmonary emphysema. Signed by: Jose Dubose DO on 12/02/2019 11:46 PM
[2019-12-02] MEDS ORDERED: SODIUM CHLORIDE 0.9% 1000ML 1,000 ML ONE (23:53)
[2019-12-03] VITALS (8 sets, daily range): BP systolic 89–120; BP diastolic 52–80
[2019-12-03] MEDS ORDERED: SODIUM CHLORIDE 0.9% 1000ML 1,000 ML IV ONE ×2
--- NOTE | 2019-12-03 01:30 | NUR ---
RECEIVED REPORT FROM ER. PT ARRIVE ON STRETCHER. PT IS ALERT AND ORIENTED X3. 20 G IN RT AC. SITE HEALTHY. PT HAVING NAUSEA AND VOMITTING FOR 3 DAYS. AFEBRILE. RESPIRATIONS ARE EVEN AND UNLABORED. VOID PER BATHROOM. UP WITH ASSISTANCE. ORIENTED TO ROOM AND UNIT. CALL LIGHT WITHIN REACH. O2 AT 4L PER N/C. BED IN LOW POSITION. NO DISTRESS NOTED. ER REPORT DR ESTRADA TROPONIN ELEVATED.
[2019-12-03 02:10] LABS: BILIRUBIN,URINE NEGATIVE (NEGATIVE); CLARITY,URINE CLEAR (CLEAR); COLOR,URINE YELLOW (YELLOW); KETONES,URINE NEGATIVE (NEGATIVE); LEUKOCYTE ESTERASE ,URINE NEGATIVE (NEGATIVE); NITRITE,URINE NEGATIVE (NEGATIVE); PROTEIN,URINE DIPSTICK NEGATIVE (NEGATIVE); URINE UROBILINOGEN 0.2 mg/dL (0.2 - 1)
[2019-12-03 02:15] LABS: BACTERIA,URINE MODERATE /HPF; EPITHELIAL CELLS,URINE FEW /LPF; RENAL EPITHELIAL CELLS,URINE FEW; TRANSITIONAL EPI CELLS,URINE FEW
[2019-12-03] MEDS: ONDANSETRON HCL INJ 2MG/ML 2ML 2 MG/ML VIAL IV PRN ×5 (03:00→22:10)
[2019-12-03 08:23] LABS: CREATINE KINASE MB 4.7 ng/mL (0-5.0)
--- NOTE | 2019-12-03 08:44 | NUR ---
Manual BP 110/70
--- NOTE | 2019-12-03 15:28 | Diagnostic Imaging Report ---
EXAMINATION: CHEST 2 VIEWS INDICATION: Shortness of breath COMPARISON: Chest radiograph 11/20/2019 FINDINGS: LINES/TUBES:EKG leads overlie the chest. LUNGS:The lungs are hyperinflated. Bilateral emphysematous changes. No focal consolidation or pulmonary edema. Right basilar subsegmental atelectasis. PLEURA:No pleural effusion or pneumothorax. MEDIASTINUM:The cardiomediastinal silhouette appears normal in size and shape. BONES/SOFT TISSUES:No acute osseous injury. ABDOMEN:No free air under the diaphragm. Status post cholecystectomy. IMPRESSION: Hyperinflated lungs and emphysematous changes. No focal pneumonia or pulmonary edema. Right basilar subsegmental atelectasis. Signed by: Theo Christensen MD on 12/03/2019 3:25 PM
[2019-12-03] MEDS: ENOXAPARIN 30 MG/0.3 ML SYR SC SCH (15:49)
[2019-12-03] MEDS: DILTIAZEM HCL 30 MG TAB PO SCH ×2 (15:56→16:27)
[2019-12-03] MEDS ORDERED: SODIUM CHLORIDE 0.9% 1000ML 1,000 ML ONE (16:03)
[2019-12-03 17:05] LABS: CREATINE KINASE MB 3.5 ng/mL (0-5.0)
[2019-12-03] MEDS: HYDROMORPHONE HCL 2 MG TAB PO PRN (17:47)
--- NOTE | 2019-12-03 21:55 | Consultation ---
DATE OF CONSULTATION: 12/03/2019 GI Consult Note REASON FOR CONSULT: Recurrent nausea and vomiting. HISTORY OF PRESENTING ILLNESS: A 64-year-old female, who was in this hospital less than two weeks ago. I was consulted for the same problem. The patient is a frequent flyer. She has multiple chronic issues. She has O2 dependent COPD. She also has congestive heart failure. Chronic smoker. Quit smoking recently. I was consulted on last admission for the same nausea and vomiting. She is coming back this time again with persistence of nausea and vomiting. She also felt that she has some heart issues going on, therefore she wanted to get checked in the emergency room. No acute cardiac event occurred. She has had a repeat CT scan of the abdomen and pelvis on this admission again without contrast. This showed moderate colonic stool burden. On further questioning, the patient stated that she does not have any problem moving her bowels. REVIEW OF SYSTEMS: Twelve-point system reviewed, symptomatology is limited as per HPI. PAST MEDICAL HISTORY: O2 dependent COPD, congestive heart failure, type 2 diabetes, hypertension, and fibromyalgia. PAST SURGICAL HISTORY: Appendectomy, cholecystectomy, hysterectomy, upper endoscopies and colonoscopies. She also has had a small bowel video capsule exam at one point of time. FAMILY HISTORY: Noncontributory. SOCIAL HISTORY: Ex-smoker. Does not drink alcohol. Never used any illicit drugs. ALLERGIES: EXTENSIVE LIST DOCUMENTED IN THE CHART. HOME MEDICATIONS: Reviewed from NOV. INPATIENT MEDICATIONS: Reviewed. PHYSICAL EXAMINATION: VITAL SIGNS: Temperature 96.6, pulse 78, respirations 18, blood pressure 105/57, oxygen saturation 100% on 2 L of nasal cannula. GENERAL: Not in any acute distress. HEENT: Oral mucosa is moist. Anicteric sclerae. CVS: S1, S2 regular. LUNGS: Bilateral occasional scattered rhonchi. ABDOMEN: Soft, nondistended, and nontender. No mass or hernia. Positive bowel sounds. EXTREMITIES: Warm. No leg edema. LABORATORY DATA: WBC 12, hemoglobin 12.5, hematocrit 37.2, MCV 90.5, and platelet count 337. Sodium 126, potassium 4.8, chloride 91, bicarb 24, BUN 22, creatinine 1.25. Liver enzymes normal. PT 12.6, INR 0.89. CT of the abdomen and pelvis without contrast showed: 1. Mild L1 vertebral body superior endplate compression fracture. Low bone mineral density. 2. Moderate colonic stool burden, correlate for constipation. 3. Pulmonary emphysema. Chest x-ray showed: 1. Hyperinflated lungs and emphysematous changes. No focal pneumonia or pulmonary edema. 2. Right basilar subsegmental atelectasis. IMPRESSION: 1. Nausea and vomiting, which is unwitnessed. This seems the patient has a functional disorder. 2. CT showing stool burden, this represents slow transit constipation as well as medication-induced constipation. PLAN: From GI standpoint, reassurance, continue outpatient medication, daily bowel regimen. Rest of the care as per primary team. I thank Dr. Wheeler for allowing me to participate in the care of this patient. Tay Sams MD [facility] /[id number]
[2019-12-04] VITALS (10 sets, daily range): BP systolic 90–110; BP diastolic 50–59
[2019-12-04] MEDS: ONDANSETRON HCL INJ 2MG/ML 2ML 2 MG/ML VIAL IV PRN ×4 (02:15→20:03)
[2019-12-04 05:40] LABS: BASOPHILS # (AUTO) 0.1 (0.0-0.1); BASOPHILS % 0.9 % (0.0-1.0); EOSINOPHILS # (AUTO) 0.3 (0.0-0.4); EOSINOPHILS % 4.7 % (0.0-6.0); HEMATOCRIT 28.9 % (34.2-44.1); HEMOGLOBIN 9.4 g/dL (12.0-16.0); LYMPHOCYTES # (AUTO) 1.9 (1.0-3.2); LYMPHOCYTES % 28.9 % (18.0-39.1); MEAN CORPUSCULAR HEMOGLOBIN 30.1 pg (28-32); MEAN CORPUSCULAR HGB CONC 32.5 g/dL (31-35); MEAN CORPUSCULAR VOLUME 92.6 fL (81-99); MONOCYTES # (AUTO) 0.5 (0.2-0.8); MONOCYTES % 7.5 % (4.4-11.3); NEUTROPHILS # (AUTO) 3.7 (2.1-6.9); NEUTROPHILS % 57.7 % (38.7-80.0); PLATELET COUNT 224 x10e3/uL (140-360); RED BLOOD COUNT 3.12 x10e6/uL (3.6-5.1); RED CELL DISTRIBUTION WIDTH 12.7 % (11.7-14.4)
[2019-12-04 06:34] LABS: ALANINE AMINOTRANSFERASE 12 IU/L (0-55); ALBUMIN/GLOBULIN RATIO 1.4 (0.8-2.0); ALKALINE PHOSPHATASE 66 IU/L (40-150); ANION GAP 8.8 mmol/L (8-16); BLOOD UREA NITROGEN 8 mg/dL (7-26); BUN/CREATININE RATIO 12 (6-25); CALCIUM 8.2 mg/dL (8.4-10.2); CARBON DIOXIDE 23 mmol/L (22-29); CHLORIDE 105 mmol/L (98-107); CREATININE, SERUM 0.68 mg/dL (0.57-1.11); EST GLOMERULAR FILTRATION RATE > 60 ML/MIN (60-); GLUCOSE 75 mg/dL (74-118); POTASSIUM 4.8 mmol/L (3.5-5.1); SODIUM 132 mmol/L (136-145)
[2019-12-04] MEDS: DILTIAZEM HCL 30 MG TAB PO SCH ×2 (07:30→16:30)
[2019-12-04] MEDS: HYDROMORPHONE HCL 2 MG TAB PO PRN ×2 (08:15→21:47)
[2019-12-04] MEDS: CLOPIDOGREL BISULFATE 75 MG TAB PO SCH (08:58)
--- NOTE | 2019-12-04 10:00 | NUR ---
bedside echo done.
--- NOTE | 2019-12-04 11:29 | NUR ---
rapid flu done.
--- NOTE | 2019-12-04 12:01 | Progress Note ---
DATE: 12/04/2019 CHIEF COMPLAINT/HISTORY OF PRESENT ILLNESS: This is a 64-year-old white woman, whose primary treatment diagnoses are chronic obstructive pulmonary disease exacerbation and non-ST elevated myocardial infarction. She was actually admitted with symptoms consistent with gastroenteritis. She also may have underlying diastolic heart failure with preserved left ventricular ejection fraction. The patient quit smoking tobacco in August 2019. The patient states she is still short of breath. Lab work today revealed white blood cell count of 6400 with 57% segmented neutrophils. The patient's chemistries today are unremarkable. The patient had an echocardiogram on admission, the preliminary report reveals a left ventricular ejection fraction 50% with concentric left ventricular hypertrophy. The patient denies any chest pain tightness. Chronic complaint is shortness of breath. REVIEW OF SYSTEMS: As per HPI. PHYSICAL EXAMINATION: GENERAL: She is awake, alert, and fluent. She is pleasant, calm. VITAL SIGNS: Height 5 feet 5 inches, weight 144 pounds, BMI 20. Blood pressure is 106/56, respiratory rate is 16, pulse 76, temperature 96.8, and oxygen saturation is 100% on 2 L oxygen. INTEGUMENT: Skin is warm and dry. No pallor, jaundice, or diaphoresis. HEENT: Anterior sclerae. Moist mucous membranes. The patient has coarse facies with a hoarse smoker's voice. NECK: Supple. CARDIOVASCULAR: Distant heart sounds. Regular rate and rhythm. LUNGS: The patient has poor air entry bilaterally. ABDOMEN: Benign. EXTREMITIES: No edema or deformity. DIAGNOSES: 1. Chronic obstructive pulmonary disease exacerbation. 2. Vad-SL-gmydlxyeq myocardial infarction. 3. Izjup-yo-zlsqxgi diastolic heart failure. 4. Gastroenteritis, resolving. 5. Tobacco abuse. PLAN: 1. We will check final echocardiogram. 2. Appreciate cardiology's input. 3. We will check troponin I level. 4. Order nebulized bronchodilators. 5. We will order influenza swab. I spent 30 minutes in the care of this patient. MD TIFFANIE Aguilera/ANDRIY /[id number] ABIDA
[2019-12-04] MEDS: ALBUTEROL/IPRATROPIUM 3 ML NEB NEB SCH ×2 (13:05→21:10)
[2019-12-04] MEDS: ENOXAPARIN 30 MG/0.3 ML SYR SC SCH (17:35)
--- NOTE | 2019-12-04 19:18 | Progress Note ---
DATE: 12/04/2019 SUBJECTIVE: The patient reports improvement in nausea. Tolerating oral diet. No episode of any vomiting. REVIEW OF SYSTEMS: GENERAL: No fever or chills. CVS: No chest pain or palpitations. RESPIRATORY: No cough or expectoration. MEDICATIONS: 1. Lovenox 30 mg subcu daily. 2. Albuterol inhaler. 3. Zofran 4 mg IV q.4 hours as needed. 4. Clopidogrel 75 mg daily. 5. Hydromorphone 8 mg q.8 hours as needed. 6. Diltiazem 30 mg p.o. twice daily. PHYSICAL EXAMINATION: VITAL SIGNS: Temperature 96.3, pulse 71, respirations 18, blood pressure 96/51 to 89/53, oxygen saturation 100% on 3 L of nasal cannula. GENERAL: Not in any acute distress. HEENT: Moist mucous membranes. Anicteric sclerae. ABDOMEN: Soft, nondistended, nontender. No mass or hernia. Positive bowel sounds. LABORATORY DATA: WBC is down to 6.43 from 12.07, hemoglobin 9.4, hematocrit 28.9, MCV 92.6, and platelet count 224. Sodium 132, potassium 4.8, chloride 105, bicarb 23, BUN 8, creatinine 0.68. ASSESSMENT: Nausea, vomiting have resolved. PLAN: Continue supportive care. The patient has lot of functional component. I doubt the patient has any underlying GI pathology, which is causing her upper GI symptoms. Tay Sams MD SA/ANDRIY /[id number]
--- NOTE | 2019-12-04 19:46 | NUR ---
walking rounds complete, pt report handed to on coming nurse.,
--- NOTE | 2019-12-04 21:33 | Progress Note ---
DATE: 12/04/2019 Cardiology Progress Note SUBJECTIVE: Has had couple bouts of pressure-like chest discomfort, lasting 2 minutes at a time, occurring while at rest, nonradiating, without associated symptoms. Denies fever. Stable shortness of breath. Continues to have nausea, vomiting, and decreased p.o. intake. OBJECTIVE: VITAL SIGNS: Temperature 96.3, heart rate 71, blood pressure 96/51, respiratory rate 18, and O2 saturation 100%. GENERAL: In no acute distress. Alert. NECK: No JVD. CHEST: Clear to auscultation. CARDIOVASCULAR: Regular rate and rhythm. Normal S1 and S2. ABDOMEN: Soft. Bowel sounds positive. EXTREMITIES: No edema. Warm extremities. CARDIOVASCULAR MEDICATIONS: Reviewed. Lovenox 30 mg subcutaneous daily and diltiazem 30 mg b.i.d. STUDIES: Reviewed. Sodium 132, potassium 4.8, chloride 105, bicarbonate 23, BUN 8, creatinine 0.68, and glucose 75. White blood cell 6.4, hemoglobin 9.4, and platelets 224. PT 12.6, PTT 36, and INR 0.89. AST 17, ALT 12, total bilirubin 0.2, and alkaline phosphatase 66. ASSESSMENT AND PLAN: A 64-year-old woman presents with gastroenteritis, nausea, vomiting, decreased p.o. intake, volume depletion, anemia, vasculopath with PAD, status post right carotid endarterectomy and previous remote revascularization lower extremities reported. Echocardiogram reviewed today. Significant for LVEF 40% to 45%, mild left ventricular hypertrophy, impaired left ventricular relaxation and hypokinesis of apical septum, apical anterior and apical inferior segments of LV myocardium. Troponin continues to trend down, I think was 0.4, troponin I. 1. Rdt-HK-bvdihbeta myocardial infarction. 2. Attsn-el-fiyhtkj systolic heart failure. 3. Anemia. 4. Gastroenteritis. 5. Chronic obstructive pulmonary disease. 6. Peripheral arterial disease. 7. Status post right carotid endarterectomy. RECOMMEND: 1. Switch diltiazem to low dose metoprolol with holding parameters. 2. Continue clopidogrel. 3. Once able to tolerate p.o. intake and maintaining well hydration, plan for coronary angiography and possible intervention likely Friday, pending further clinical course progression and system-wide recommendations regarding management of dus-AI-mtgyfxuna myocardial infarction for ongoing bandemia. The patient has iodine allergy and will need premedication with steroids, therefore initiating tomorrow Benadryl, Pepcid and prednisone if the patient decides to proceed with testing. MD GUILLE Zuniga/MODL /[id number]
[2019-12-05] VITALS (7 sets, daily range): BP systolic 106–138; BP diastolic 56–70
[2019-12-05] MEDS: ALBUTEROL/IPRATROPIUM 3 ML NEB NEB SCH ×3 (01:40→19:30)
[2019-12-05] MEDS ORDERED: NITROGLYCERIN 0.4 MG SUBL SL PRN (01:45)
[2019-12-05] MEDS ORDERED: HYDROCODONE/APAP 5MG-325MG TAB PO PRN (01:45)
--- NOTE | 2019-12-05 01:55 | NUR ---
patient c/o chest pain that radiated to left arm, left arm and left side of her face are numb and tingling. Stat EKG done. Notified Dr Powell. New order received.
[2019-12-05 03:27] LABS: BASOPHILS # (AUTO) 0.1 (0.0-0.1); BASOPHILS % 0.7 % (0.0-1.0); EOSINOPHILS # (AUTO) 0.3 (0.0-0.4); EOSINOPHILS % 3.4 % (0.0-6.0); HEMATOCRIT 27.5 % (34.2-44.1); LYMPHOCYTES # (AUTO) 1.9 (1.0-3.2); MEAN CORPUSCULAR HEMOGLOBIN 30.7 pg (28-32); MEAN CORPUSCULAR HGB CONC 32.7 g/dL (31-35); MEAN CORPUSCULAR VOLUME 93.9 fL (81-99); MONOCYTES # (AUTO) 0.6 (0.2-0.8); MONOCYTES % 7.7 % (4.4-11.3); NEUTROPHILS # (AUTO) 4.8 (2.1-6.9); NEUTROPHILS % 62.9 % (38.7-80.0); PLATELET COUNT 224 x10e3/uL (140-360); RED BLOOD COUNT 2.93 x10e6/uL (3.6-5.1); RED CELL DISTRIBUTION WIDTH 12.8 % (11.7-14.4)
[2019-12-05 03:45] LABS: ALANINE AMINOTRANSFERASE 14 IU/L (0-55); ALBUMIN 2.9 g/dL (3.5-5.0); ALBUMIN/GLOBULIN RATIO 1.3 (0.8-2.0); ALKALINE PHOSPHATASE 60 IU/L (40-150); ANION GAP 9.3 mmol/L (8-16); BLOOD UREA NITROGEN 7 mg/dL (7-26); BUN/CREATININE RATIO 10 (6-25); CARBON DIOXIDE 25 mmol/L (22-29); CHLORIDE 104 mmol/L (98-107); CREATININE, SERUM 0.69 mg/dL (0.57-1.11); EST GLOMERULAR FILTRATION RATE > 60 ML/MIN (60-); GLUCOSE 75 mg/dL (74-118); POTASSIUM 5.3 mmol/L (3.5-5.1); SODIUM 133 mmol/L (136-145)
--- NOTE | 2019-12-05 08:51 | Diagnostic Imaging Report ---
EXAMINATION: CHEST SINGLE (PORTABLE) INDICATION: Shortness of breath COMPARISON: Chest radiograph 12/03/2019 FINDINGS: LINES/TUBES:EKG leads overlie the right chest. LUNGS:The lungs are hyperinflated. Bilateral emphysematous changes. No focal consolidation or pulmonary edema. Coarsening of the pulmonary interstitium in the lower lobes. Right basilar subsegmental atelectasis. PLEURA:No pleural effusion or pneumothorax. MEDIASTINUM:The cardiomediastinal silhouette appears normal in size and shape. BONES/SOFT TISSUES:No acute osseous injury. ABDOMEN:No free air under the diaphragm. Status post cholecystectomy. IMPRESSION: Mild chronic interstitial changes bilaterally. No focal consolidation. Signed by: Dr. Sherlyn Del Valle M.D. on 12/05/2019 8:48 AM
[2019-12-05] MEDS: CLOPIDOGREL BISULFATE 75 MG TAB PO SCH (09:08)
[2019-12-05] MEDS: HYDROMORPHONE HCL 2 MG TAB PO PRN ×2 (09:21→15:53)
--- NOTE | 2019-12-05 12:05 | Progress Note ---
DATE: CHIEF COMPLAINT/HISTORY OF PRESENT ILLNESS: This is a 64-year-old white woman, whose primary diagnosis is COPD exacerbation and gwc-IA-mrgsfyeby myocardial infarction. The patient also was diagnosed with acute on chronic diastolic heart failure. Initially, she presented with signs and symptoms consistent with gastroenteritis, but that resolved. The patient was also heavy tobacco smoker, but she quit a few months ago. The patient states she is still exposed to secondhand tobacco smoke from her . The patient voiced no complaints at this time. The patient's ox saturation did drop to 88% on room air when she was off oxygen for 20 minutes and this was at rest. The patient was seen by Cardiology yesterday, namely Dr. Powell and she may undergo a left heart catheterization tomorrow. The patient states overall she feels better. The patient underwent echocardiogram during hospitalization, which revealed left ventricular ejection fraction of 40%-45% and diastolic filling pattern indicating impaired relaxation. The patient had cardiac enzymes checked, namely troponin I on every 6 hours yesterday and this morning and the results were all negative. The patient also had influenza A and B swab performed yesterday and it was negative. REVIEW OF SYSTEMS: As per HPI. PHYSICAL EXAMINATION: GENERAL: She is awake, alert and fully oriented. She is very pleasant and cooperative on exam. VITAL SIGNS: Blood pressure is 106/60, pulse 70, respiratory rate 18, temperature 96.0, oxygen 96% on 2 L oxygen. Height is 5 feet 5 inches, weight 124 pounds, BMI 20. INTEGUMENT: Skin is warm and dry. No pallor, jaundice or diaphoresis. HEENT: Anterior sclerae with moist mucous membranes. The patient has coarse facies with hoarse smoker's voice. NECK: Supple. No evidence of jugular venous distention. CARDIOVASCULAR: Distant heart sounds. Regular rate and rhythm. LUNGS: The patient has poor air entry bilaterally. ABDOMEN: Benign. EXTREMITIES: No edema or deformity. NEUROLOGIC: Intact. No gross deficits appreciated. DIAGNOSES: 1. Eev-PP-fgkxdjyct myocardial infarction. 2. Esyyj-xo-xddkufy systolic/diastolic congestive heart failure, resolving. 3. Chronic obstructive pulmonary disease exacerbation, resolving. 4. History of heavy tobacco smoking (quit August 2019). 5. Gastroenteritis, resolved. PLAN: 1. Commend patient for wellness to quit smoking tobacco. 2. Appreciate Cardiology's input. 3. Left heart catheterization tomorrow tentatively on Friday, December 06, 2019. 4. Continue nebulized bronchodilators. I spent 30 minutes in the care of this patient. MD TIFFANIE Aguilera/ANDRIY /[id number] ABIDA
[2019-12-05] MEDS ORDERED: DIPHENHYDRAMINE HCL 25 MG CAP PO PRN (15:45)
--- NOTE | 2019-12-05 17:05 | Progress Note ---
DATE: 12/05/2019 Cardiology Progress Note SUBJECTIVE: I had episodes of chest pressure overnight lasting less than 5 minutes recurrent x2. Currently symptom free. Cardiac biomarkers negative from overnight. Troponin I negative. OBJECTIVE: VITAL SIGNS: Temperature 97.3, heart rate 79, blood pressure 134/61, respiratory rate 20, O2 saturation 96%. GENERAL: No acute distress, alert. NECK: No JVD. CHEST: Clear to auscultation. CARDIOVASCULAR: Regular rate and rhythm. Normal S1, S2. ABDOMEN: Soft. Bowel sounds positive. EXTREMITIES: No edema. CARDIOVASCULAR MEDICATIONS: Reviewed. Lovenox 30 mg subcu daily, clopidogrel 75 mg daily, metoprolol succinate 12.5 mg daily, and nitroglycerin p.r.n. STUDIES: Reviewed. Creatinine 0.6, glucose 75. White blood cell 7.5, hemoglobin 9, and platelets 224. INR 0.89, PTT 36. PT 12.6. ASSESSMENT: 1. A 64-year-old woman with fzj-YO-ymydytjuv myocardial infarction. 2. Gastroenteritis. 3. Chronic obstructive pulmonary disease. 4. Peripheral arterial disease, status post right carotid endarterectomy. 5. Acute on chronic systolic heart failure. 6. Anemia. RECOMMENDATIONS: Indications, alternatives, risks and benefits for coronary angiography and possible intervention discussed. Given positive troponin and recurrent episodes of chest discomfort concerning for angina pectoris in this patient of known vasculopath is therefore decided to proceed with cholangiography. This is deemed risk for and worsening condition, including heart attack and worsening heart failure. Continue rest of cardiovascular medications. Premedication for iodine allergy initiated. MD GUILLE Zuniga/MODL /[id number]
[2019-12-05] MEDS: ENOXAPARIN 30 MG/0.3 ML SYR SC SCH (17:25)
[2019-12-05] MEDS: METOPROLOL SUCCINATE 25 MG TAB XL PO SCH (17:25)
[2019-12-05] MEDS: FAMOTIDINE 20 MG TAB PO SCH (17:25)
[2019-12-05] MEDS: PREDNISONE 20 MG TAB PO SCH (17:25)
--- NOTE | 2019-12-05 19:00 | NUR ---
Bedside report given to morning nurse. Pt alert and orient to name, lying in bed HOB 30 degrees. Denies pain at this time. Call light within reach. Bed low and locked.
--- NOTE | 2019-12-05 23:02 | Progress Note ---
DATE: 12/05/2019 GI Progress Report SUBJECTIVE: The patient reports improvement in nausea. No vomiting. Tolerating oral diets. Regular bowel movements. REVIEW OF SYSTEMS: GENERAL: No fever or chills. CVS: No chest pain or palpitation. RESPIRATORY: No cough or expectoration. MEDICATIONS: 1. Famotidine 20 mg twice daily. 2. Prednisone 60 mg daily. 3. Metoprolol 12.5 mg p.o. daily. 4. Lovenox 30 mg subcu daily. 5. Hydromorphone 8 mg q.6 hours p.o. as needed. 6. Clopidogrel 75 mg p.o. daily. 7. Albuterol inhaler as needed. 8. Nitroglycerin 0.4 mg q.5 minutes sublingual as needed. 9. Zofran 4 mg IV q.4 hours as needed. 10. Diphenhydramine 25 mg q.12 hours p.o. as needed for itching. PHYSICAL EXAMINATION: VITAL SIGNS: Temperature 96.6, pulse 78, respirations 16, blood pressure 138/70, oxygen saturation 97% on 3 L of nasal cannula. GENERAL: Not in any apparent distress. Oral mucosa is moist. Anicteric sclerae. CVS: S1 and S2 regular. LUNGS: Bilaterally grossly clear. ABDOMEN: Soft, nondistended, nontender. No palpable mass or hernia. Positive bowel sounds. EXTREMITIES: Warm, trace bilateral leg edema. LABORATORY DATA: Sodium 133, potassium 5.3, chloride 104, bicarb 25. BUN 7, creatinine 0.69, glucose 75. Liver enzymes showed a total bilirubin of 0.1. AST 20, ALT 14, alkaline phosphatase 60. WBC 7.57, hemoglobin 9, hematocrit 27.5, MCV 93.9, and platelet count 224. Chest x-ray, mild chronic interstitial changes bilaterally. No focal consolidation. IMPRESSION: 1. Chronic intermittently persistent nausea, vomiting. 2. Cardiology has evaluated the patient, it is determined that she has had a non-ST elevation myocardial infarction. She is scheduled to undergo coronary angiography tomorrow. PLAN: From a GI standpoint, continue present medication. No further recommendation. Tay Sams MD SA/ANDRIY /[id number]
[2019-12-06] VITALS (18 sets, daily range): BP systolic 97–145; BP diastolic 47–86
[2019-12-06] MEDS: HYDROMORPHONE HCL 2 MG TAB PO PRN ×4 (00:30→22:12)
[2019-12-06] MEDS: ALBUTEROL/IPRATROPIUM 3 ML NEB NEB SCH ×4 (01:02→19:35)
[2019-12-06] MEDS: ONDANSETRON HCL INJ 2MG/ML 2ML 2 MG/ML VIAL IV PRN ×4 (03:45→22:13)
[2019-12-06 05:09] LABS: BASOPHILS % 0.1 % (0.0-1.0); EOSINOPHILS # (AUTO) 0.1 (0.0-0.4); EOSINOPHILS % 1.8 % (0.0-6.0); HEMATOCRIT 31.1 % (34.2-44.1); LYMPHOCYTES # (AUTO) 0.5 (1.0-3.2); LYMPHOCYTES % 7.8 % (18.0-39.1); MEAN CORPUSCULAR HEMOGLOBIN 30.1 pg (28-32); MEAN CORPUSCULAR HGB CONC 32.2 g/dL (31-35); MEAN CORPUSCULAR VOLUME 93.7 fL (81-99); MONOCYTES # (AUTO) 0.2 (0.2-0.8); NEUTROPHILS # (AUTO) 5.8 (2.1-6.9); PLATELET COUNT 255 x10e3/uL (140-360); RED BLOOD COUNT 3.32 x10e6/uL (3.6-5.1); RED CELL DISTRIBUTION WIDTH 12.7 % (11.7-14.4)
[2019-12-06 05:28] LABS: INR 0.9; PROTHROMBIN TIME 12.7 seconds (11.9-14.5)
[2019-12-06 05:29] LABS: PARTIAL THROMBOPLASTIN TIME 33.3 seconds (23.8-35.5)
[2019-12-06 05:32] LABS: BLOOD UREA NITROGEN 8 mg/dL (7-26); BUN/CREATININE RATIO 11 (6-25); CALCIUM 8.5 mg/dL (8.4-10.2); CARBON DIOXIDE 26 mmol/L (22-29); CHLORIDE 101 mmol/L (98-107); CREATININE, SERUM 0.74 mg/dL (0.57-1.11); EST GLOMERULAR FILTRATION RATE > 60 ML/MIN (60-); GLUCOSE 113 mg/dL (74-118); SODIUM 134 mmol/L (136-145)
--- NOTE | 2019-12-06 05:33 | Consultation ---
DATE OF CONSULTATION: 12/03/2019 Cardiology Consultation CONSULTING PHYSICIAN: Kenney Mcgarry MD, Interventional Cardiology. CHIEF COMPLAINT: Nausea, vomiting, decrease p.o. intake. REASON FOR CONSULTATION: Abnormal cardiac biomarkers. HISTORY OF PRESENT ILLNESS: A 64-year-old woman with history of COPD on home oxygen, hypertension, diabetes mellitus, fibromyalgia, history of chronic heart failure, unspecified, presents with complaints of decreased p.o. intake, nausea and vomiting for at least four days. Due to the decreased p.o. intake and generalized fatigue and tiredness, the patient came via the ER. She reports stable shortness of breath. She denies any current fever. Her cough is described as stable based on her longstanding chronic cough from COPD. She denies any other complaints at this time. In addition, she denies any chest pain. REVIEW OF SYSTEMS: A 12-system review negative except for as noted above. PAST MEDICAL HISTORY: COPD, chronic heart failure, unspecified hypertension, diabetes mellitus, fibromyalgia. PAST SURGICAL HISTORY: Appendectomy, cholecystectomy, hysterectomy, prior hernia repairs, and prior colon resection. ALLERGIES: MULTIPLE ALLERGIES, PLEASE SEE ELECTRONIC MEDICAL REGULAR FOR FULL LIST, WHICH INCLUDE IODINE, PENICILLIN, SULFA, AZITHROMYCIN, CODEINE, DOXYCYCLINE, LEVOFLOXACIN. FAMILY HISTORY: Noncontributory. SOCIAL HISTORY: Former smoker. No active smoking. Denies alcohol or drugs. PHYSICAL EXAMINATION: VITAL SIGNS: Temperature 97.1, heart rate 87, blood pressure 103/52, respiratory rate 18, O2 saturation 97%, BMI 20.6. GENERAL: In no acute distress, alert. NECK: No JVD. CHEST: Clear to auscultation. CARDIOVASCULAR: Regular rate and rhythm. Normal S1, S2. No S3, no S4. No murmurs, no rubs. ABDOMEN: Soft. Bowel sounds positive. EXTREMITIES: No cyanosis, clubbing, or edema. MEDICATIONS: Cardiovascular medications reviewed. Home medication reviewed. LABORATORY DATA: Sodium 126, potassium 4.8, chloride 91, bicarbonate 24, BUN 22, creatinine 1.25, glucose 94. White blood cells 12, hemoglobin 12.5, platelets 337. PT 12.6, PTT 36. INR 0.89. AST 18, ALT 13, alkaline phosphatase 94, total bilirubin 0.3. EKG, sinus rhythm with inferolateral repolarization abnormality. Troponin markers noted, peak troponin 0.4, trending down. ASSESSMENT AND PLAN: 1. A 64-year-old woman presents with intractable nausea, vomiting and decreased p.o. intake with volume depletion. She has a history of chronic heart failure, unspecified and chronic obstructive pulmonary disease. She reports history of atherosclerotic vascular disease with prior remote peripheral vascular interventions. She reports recent coronary angiography within the last year, reportedly without significant obstructive coronary artery disease at that time. She also reports a history of right carotid endarterectomy in the past. She denies any anginal-type symptoms at this point. It is felt given the clinical presentation and troponin trend, this is likely demand supply mismatch troponin leak and not customer assistance representative of acute coronary syndrome. Volume repletion/hydration encouraged. Resume Cardizem at a lower dose and home medication dose. Continue aspirin. 2. If no contraindications, add statin to current regimen. 3. We will follow closely with you. Echocardiogram has been requested. Telemetry has been ordered. I thank Dr. Wheleer for the opportunity to participate in the care of this patient. Please feel free to call with any questions. Kenney Mcgarry MD AFV/MODL /[id number]
--- NOTE | 2019-12-06 06:40 | NUR ---
Pt lying in bed, no acute distress noted. Call light within reach.
--- NOTE | 2019-12-06 07:00 | NUR ---
RCD PT AT BED PT IS ALERT AND ORIENTED IV PATENT PT NPO FOR PROCEDURE BED LOW AND LOCKED CALL LIGHT IN REACH
[2019-12-06 09:07] LABS: LYMPHOCYTES % (MANUAL) 5 % (19-48); MONOCYTES % (MANUAL) 3 % (3.4-9.0); NEUTROPHILS % (MANUAL) 92 % (40-74); PLATELET ESTIMATE ADEQUATE; RBC MORPHOLOGY COMMENT NORMAL
[2019-12-06 09:08] LABS: PLATELET MORPHOLOGY COMMENT NORMAL
--- NOTE | 2019-12-06 10:05 | NUR ---
PT WENT TO PROCEDURE IN SAFE CONDITION
--- NOTE | 2019-12-06 10:12 | NUR ---
Pt out of room and no family at bedside. Global Commodity Manager will follow up as able. IRENA ROMAN Global Commodity Manager Spiritual Care Department O: [phone]
[2019-12-06] MEDS ORDERED: HEPARIN SOD (PORCINE) 1000 UNIT/ML 30ML ONE (10:19)
[2019-12-06] MEDS ORDERED: MIDAZOLAM HCL 2 MG/2 ML VIAL ONE (10:20)
[2019-12-06] MEDS ORDERED: LIDOCAINE HCL 2% LOCAL 20 ML VIAL ONE (10:20)
[2019-12-06] MEDS ORDERED: FENTANYL CITRATE/PF 100MCG/2 ML INJ ONE (10:20)
[2019-12-06] MEDS ORDERED: HEPARIN SOD/SOD CHLORIDE 2,000 ML ONE (10:21)
[2019-12-06] MEDS ORDERED: SODIUM CHLORIDE 0.9% 1000ML 1,000 ML ONE (10:21)
[2019-12-06] MEDS ORDERED: IOPAMIDOL 370 MG/ML 200 ML INFUS..BTL INJ ONE ×2 (10:21→11:40)
[2019-12-06] MEDS ORDERED: NITROGLYCERIN/D5W 200 MCG/ML 250 ML ONE (10:21)
[2019-12-06] MEDS ORDERED: METHYLPREDNISOLONE SOD SUCC 125 MG/2ML VIAL ONE (10:30)
[2019-12-06] MEDS ORDERED: DIPHENHYDRAMINE HCL INJ 50 MG/ML VIAL ONE (10:30)
[2019-12-06] MEDS ORDERED: FAMOTIDINE 20 MG/2 ML VIAL IV ONE (10:30)
[2019-12-06] MEDS ORDERED: VERAPAMIL HCL 2.5 MG/ML 2 ML VIAL ONE (10:59)
--- NOTE | 2019-12-06 12:10 | NUR ---
Continuity of care from procedure. Alert oriented and appropriate, PERRLA, respirations even and unlabored to room air. Pulses x4 extremities equal and week. bilateral TR bands with moderate hematoma to each. Left TR band w/ 14ml in bladder, manual pressure being held proximal and distal to TR by Delbert HOOKER. TR band to right had 15ml air, with large hematoma extending approximately 3 cm proximal. Immediate removal of TR band and direct pressure applied along artery and forearm. Skin warm and dry integrity appears intact. IV 20g to right forearm. presents healthy w/o s/s of infiltration or complaint. Abdomen soft and supple. pt offered toileting, denies need to urinate or defecate. No personal affects with patient. Family not available at this time. Pt verbalizes understanding of POC. to room ACU 9 on bed, bedside telemetry in use.. Currently w/ complaint of pain. history of chronic pain. recently medicated with hydromorphone and RX from procedure room. repositioning and distraction provided.
--- NOTE | 2019-12-06 12:30 | NUR ---
TR band reapplied to right radial after manual hold. 15ml applied by kaila DIGGS while pressure being held. Education provided to patient. left TR band with localized hematoma. + neurovascular function present. pt w/ increased comfort with shift of lower body. Right groin dressing CDI. in waiting room and brought back. Verbalizes understanding of the multiple approaches and pain mgmt. VS wnl. - cgf
--- NOTE | 2019-12-06 13:43 | NUR ---
Nutrition Screen Note RD Recommendation for Physician: ADAT to cardiac, 1800 calorie carb controlled diet per MD. Plan of Care: RD following, monitoring for tolerance and adequacy. ONS when pt is no longer NPO (Glucerna BID) Nutrition reason for involvement: (MD Consult,-TF consult, education-cardiac) Primary Diagnose(s): Dehydration, hyponatremia, vomiting PMH: O2 dependent COPD, congestive heart failure, type 2 diabetes, hypertension, and fibromyalgia. Ht: 65 in Wt: 136 lb BMI:22.7 kg/m2 IBW:[address] Assessment: (12/05) 64 YOF admitted for dehydration with PMH listed above. Received consult that stated TF consult and cardiac diet education. Pt is currently NPO for pending coronary angiography, she was not in her room. Spoke with nurse who believes the consult was a mistake- the pt does not have or need TF recs. Unknown reason for consult, please re-consult if needed. The nurse reported she thought it may have been for a different pt on TF which RD is already seeing. Per MD note, the pt has a poor po intake, recommend ONS to help the pt meet her nutritional needs. Pt has been consuming 50-100% of her meals per FS. Chart reviewed. Labs and meds reviewed. Pt was out of room at second time of visit, left educational handout regarding low Na MNT at bedside. Will continue to monitor. Current Diet: NPO Malnutrition Evaluation (12/05) -unable to assess Energy intake: -unable to assess Weight loss: -unable to asses Fat loss: unable to asses Muscle loss: unable to asses Diet Education Needs Assessment. Diet education indicated, pt was not in the room. Diet Adequacy: Meeting calorie needs, Meeting protein needs,-pt appears to be meeting her needs with meal assessment percentages listed Learner(s): pt Barriers: pt was not in room (both visits) Cultural/Language Modifications:none Readiness: n/a Method: handout Topics: Low Na diet Understanding/Compliance: n/a Nutrition Care Level: low Signed: Taya Ricketts, RD, LD
--- NOTE | 2019-12-06 15:32 | NUR ---
PT BACK AFTER PROCEDURE PT IS ALERT AND ORIENTED NO SIGNS OF ANY BLEEDING ON RT GROIN AND LEFT WRIST SMALL HEMATOMA NOTED ON THE RIGHT WRIST VITALS CHECKED BED LOW AND LOCKED CALL LIGHT IN REACH
[2019-12-06] MEDS: PREDNISONE 20 MG TAB PO SCH (15:50)
[2019-12-06] MEDS: METOPROLOL SUCCINATE 25 MG TAB XL PO SCH (15:50)
[2019-12-06] MEDS: ENOXAPARIN 30 MG/0.3 ML SYR SC SCH (15:50)
[2019-12-06] MEDS: CLOPIDOGREL BISULFATE 75 MG TAB PO SCH (15:50)
[2019-12-06] MEDS: FAMOTIDINE 20 MG TAB PO SCH ×2 (15:50→16:30)
[2019-12-06] MEDS: SODIUM CHLORIDE 0.9% 1000ML 1,000 ML IV SCH ×2 (16:00)
--- NOTE | 2019-12-06 16:30 | Progress Note ---
DATE: 12/06/2019 Cardiology Progress Note SUBJECTIVE: No complaints today. OBJECTIVE: VITAL SIGNS: Temperature 98.8, heart rate 63, blood pressure 137/63, respiratory rate 20, O2 saturation 95%, weight 136 pounds, BMI 22.6. GENERAL: No acute distress, alert. NECK: No JVD. CHEST: Clear to auscultation. CARDIOVASCULAR: Regular rate and rhythm. Normal S1, S2. ABDOMEN: Soft. Bowel sounds positive. EXTREMITIES: No edema. CARDIOVASCULAR MEDICATIONS: Reviewed. 1. Clopidogrel 75 mg daily. 2. Lovenox 30 mg subcu daily. 3. Metoprolol succinate 12.5 mg daily. MEDICATIONS: 1. Prednisone. 2. Pepcid. 3. Benadryl. LABORATORY DATA: Studies reviewed. Potassium 5, bicarbonate 26, creatinine 0.74, glucose 113. White blood cells 6.6, hemoglobin 8, platelets 255. ASSESSMENT AND PLAN: A 64-year-old woman presents with type 2 myocardial infarction in the setting of takotsubo cardiomyopathy, regional wall motion abnormality with left ventricular ejection fraction 40% to 44% on LV-gram and echocardiogram. 1. Uqhc-fs-mgswbijt coronary artery disease. Given coronary angiographic findings today as a result thought to be non-STEMI and stated type 2 ND. 2. Gastroenteritis. 3. 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 Recommend obtaining blood pressure measurements noninvasively via the left upper extremity to minimize artifactual drop related to her peripheral arterial disease affecting all extremities. 4. As the patient reports allergy to aspirin, continue clopidogrel. 5. Continue statin. 6. Complete iodine allergy prophylaxis with less dose tomorrow, so far no reported issues. 7. Continue beta-johnna. 8. As blood pressure allows, may add angiotensin receptor johnna. Kenney Mcgarry MD AFV/MODAnkit /[id number]
--- NOTE | 2019-12-06 17:20 | Operative Report ---
DATE OF PROCEDURE: 12/06/2019 SURGEON: Kenney Mcgarry MD PROCEDURE INDICATION: Non-ST elevation myocardial infarction, acute systolic heart failure with regional wall motion abnormality affecting the apex of LV myocardium. PROCEDURES PERFORMED: 1. Access from the right common femoral artery - infrarenal aorta occluded. Right radial artery accessed- patient also had a right subclavian artery occlusion. Therefore left radial artery access was obtained and coronary angiography and left heart catheterization were performed via left radial artery. At the end of the procedure TR band hemostasis applied to both radial sites, and hemostasis to right femoral artery achieved with manual pressure hemostasis. 2. Left heart catheterization. 3. Selective coronary angiography. 4. Aortic arch aortography. 5. Abdominal aortogram. COMPLICATIONS: None other than observed chronic occlusions to the right subclavian artery and to the infrarenal abdominal aorta as we described below. PROCEDURE SUMMARY: After consent was obtained, the patient was prepped and draped in a sterile fashion. The right femoral site was locally infiltrated with 2% lidocaine and access was obtained with a micropuncture kit. A 6-Georgian sheath placed and catheters. A JR4 and Wholey wire were used to attempt to maneuver plaque in the aorta due to difficulty in advancement of wire. Angiography was performed revealing an occluded infrarenal aorta. It was therefore decided to proceed with the right radial access, which was performed with a 5-Georgian Slender sheath and ultrasound guidance. Catheter advancement revealed occluded right subclavian artery. Therefore, additional access to the left radial site was performed and the catheters were advanced via this route. A 5-Georgian outer diameter slender sheath was advanced to the right radial site over ultrasound guidance. A TIG catheter was used for engagement of left main and right coronary artery and aortic valve was crossed with a Wholey wire and pigtail catheter was used to perform LV gram. The catheter was then retrieved back and performed aortogram of the ascending aorta, aortic arch, and the descending aorta. FINDINGS: These were the following findings. 1. Left main is large in caliber with 30% stenosis , severe calcifications throughout the coronary arteries. The left main gives an LAD and a circumflex. 2. The LAD has 30% stenosis, gives a couple of diagonals and multiple septal perforators. 3. The circumflex gives two obtuse marginals and 30% stenosis throughout. 4. The right coronary artery is dominant with 40% proximal stenosis, gives couple RV marginals in the mid segment and terminal RPDA and RPLV. 5. LV pressure is 148/10 with end-diastolic pressure ranging from 27 to 34. 6. Aortic pressure was 146/78. 7. LV gram reveals mild improvement in left ventricular systolic function with left ventricular ejection fraction of 40% to 45% and akinesis of apical segment of LV myocardium. 8. Right subclavian is occluded beyond the innominate artery. Type 3 aortic arch, heavy calcification noted throughout the aortic arch and the aorta. Common carotid arteries are visualized to be patent. The innominate artery is patent. The left subclavian artery is patent. The infrarenal aorta is occluded at 100%, moderate calcific diffuse disease affecting iliac vessels. CONCLUSIONS: 1. Uwqp-zo-hjzsxfmr multivessel coronary artery disease. 2. Non-ischemic cardiomyopathy. 3. Elevated LVEDP. 4.Ocluded right subclavian artery, occluded infrarenal aorta. RECOMMENDATIONS: 1. Medical management for CAD and heart failure. 2. Outpatient vascular surgery evaluation at a later date. MD GUILLE Zuniga/ROMEOL /[id number] MTDD
--- NOTE | 2019-12-06 18:40 | NUR ---
PT RESTING ON BED BED SIDE REPORT GIVEN TO ONCOMING NURSE
--- NOTE | 2019-12-06 20:04 | NUR ---
RECEIVED PT IN BED AOX3 SITTING AT THE SIDE OF THE BEDS PT HAD CARDIAC CATH TODAY NO SIGNS OF ANY BLEEDING ON RT GROIN AND LEFT WRIST SMALL HEMATOMA NOTED ON THE RIGHT WRIST DENIES PAIN CALL LIGHT WITH IN REACH .CONTINUE TO MONITOR
[2019-12-07] MEDS: ALBUTEROL/IPRATROPIUM 3 ML NEB NEB SCH ×2 (00:52→07:18)
[2019-12-07 01:22] VITALS: BP 113/58
[2019-12-07] MEDS: ONDANSETRON HCL INJ 2MG/ML 2ML 2 MG/ML VIAL IV PRN ×2 (03:38→08:12)
[2019-12-07 07:06] VITALS: BP 117/58
--- NOTE | 2019-12-07 07:17 | NUR ---
PT RESTING AND BEDSIDE REPORT GIVEN TO THE ONCOMING NURSE
[2019-12-07 07:59] VITALS: BP 118/58
[2019-12-07] MEDS: FAMOTIDINE 20 MG TAB PO SCH (08:09)
[2019-12-07] MEDS: PREDNISONE 20 MG TAB PO SCH (08:10)
[2019-12-07] MEDS: CLOPIDOGREL BISULFATE 75 MG TAB PO SCH (08:10)
[2019-12-07] MEDS: METOPROLOL SUCCINATE 25 MG TAB XL PO SCH (08:11)
[2019-12-07] MEDS: HYDROMORPHONE HCL 2 MG TAB PO PRN (08:12)
[2019-12-07 08:17] VITALS: BP 118/58
[2019-12-07] MEDS ORDERED: FUROSEMIDE 40 MG TAB PO SCH (09:00)
--- NOTE | 2019-12-07 12:21 | NUR ---
Patient had orders from Dr. Wheeler to discharge. Patient was given follow up instructions and paperwork. Patient's IV was removed at 1130. Patient was assessed with getting hall monitor off and collecting her belongings. Patient was transported to her 's car around 1201 via the PCT. Patient had no other complaints or issues at this time.
--- NOTE | 2020-01-18 01:47 | Discharge Summary ---
CHIEF COMPLAINT: Intractable vomiting. FINAL DIAGNOSES: Coronary artery disease, vgj-GO-ekbebmrut myocardial infarction, chest pain. DISPOSITION: Home. HOSPITAL COURSE: A 64-year-old female with known history of COPD, congestive heart failure, peripheral vascular disease, GERD. She was brought to the ER with a 3-day history of intractable vomiting. Unable to keep anything down her stomach. No fever. No chills. No diarrhea. No chest pains. No hematemesis or melena. She does have a history of fibromyalgia. Underwent review and evaluation. She was showing minimal epigastric tenderness with review and with further evaluation of her data, admission was made regarding complaints of intractable vomiting, dehydration, COPD, chronic congestive heart failure. She will be started on IV fluids. We will be monitoring her electrolytes. Home medications will continue. We will be requesting a GI followup and a Cardiology followup. She was being seen by Dr. Cross regarding recurrent nausea and vomiting and with his evaluation, his impression was nausea and vomiting, which is unwitnessed. The patient seems to have a functional disorder. CT of the abdomen was showing stool burden. This represents slow transit, constipation as well as medication-induced constipation. Recommending a bowel cleansing protocols. Underwent cardiac review with Dr. Ross regarding her cardiac history as well as laboratory studies showing abnormal biomarkers. She was reviewed by Dr. Ross and his impression were intractable nausea, vomiting, decreased p.o. intake with volume depletion, history of congestive heart failure, unspecified, and chronic obstructive pulmonary disease. She has also had a history of peripheral vascular disease. She denies any anginal-type symptoms currently. It was felt by Dr. 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 Recommend resuming Cardizem at a lower dose. Continue aspirin. We will continue to follow closely. With further cardiac concerns, she was taken to the operative suite on 12/06/2019, where the patient underwent cardiac cath. Procedure indication was lij-QS-aqlcmjfeq DE, acute systolic heart failure with regional wall motion abnormality, affecting the apex of the LV myocardium. Procedures; access in the right common femoral artery-infrarenal aorta was occluded. Right radial artery access. The patient also had right subclavian artery occlusion. Therefore, left radial artery access was obtained and coronary angiography and left heart catheterization was performed via left radial artery. Further procedures; selective coronary angiography, aortic arch aortography, abdominal aortogram. Procedure was concluded. Findings were showing the left main is large in caliber with 30% stenosis with severe calcifications throughout the coronary arteries. The left main gives left anterior descending and a circumflex. The left anterior descending has 30% stenosis, gives a couple of diagonals and multiple septal perforators. Circumflex gives 2 obtuse marginal and 30% stenosis throughout. The right coronary artery is dominant with 40% proximal stenosis, gives a couple of RV marginals. Right subclavian is occluded beyond the innominate artery. Type 3 aortic arch, heavy calcification noted throughout the aortic arch and the aorta. Common carotid arteries are visualized to be patent. The innominate artery is patent. The left subclavian artery is patent. The infrarenal aorta is occluded at 100%, moderate calcific diffuse disease affecting iliac vessels. Recommendations; medical management, outpatient Vascular Surgery evaluation at a later date. From the ER, the patient was placed on the Med-Surg floor, started on a full liquid diet. Her daily medications are being continued. She was started on non-STEMI protocol under the guidance of Dr. Ross. She was having no further complaints post catheterization. Discussions are being made to be discharged home. The patient was released in stable condition and will be followed up as an outpatient. IMAGING: Abdomen and pelvis CT reveals a mild L1 vertebral body superior endplate compression fracture. Low bone mineral density. Moderate colonic stool burden, correlate for constipation. Pulmonary emphysema. Chest x-ray shows hyperinflated lungs and emphysematous changes. Right basilar segmental atelectasis. Followup chest x-ray 2 days later reveals mild chronic interstitial changes bilaterally. No focal consolidation. LABORATORY STUDIES: Begins with a CBC showing a white cell count elevated at 12,000, H and H were 12.5 and 37.2, and platelets were stable. Followup white cell counts returned to normal status, final study 6600; H and H trended down to 9.0 and 27.5, final study 10.2 and 31.1. Influenza A and B studies were negative. Urinalysis was showing 6 to 10 rbc's by high-power field, 11 to 20 wbc's by high-power field, moderate amount of bacteria. Chemistries; initial panel shows a sodium to be low at 126, potassium is normal. First set of cardiac enzymes shows a troponin I to be at 0.478, final troponin 0.258. BNP was ordered at 380.3. Followup sodium was at 132, potassium peaked at 5.3. Final potassium 5.0, final sodium 134, and final glucose 104. The patient stabilized and was able to be discharged. She will be discharged home. IVs were discontinued. She will continue on a cardiac diet. No equipments or supplies are necessary. No drains or [place] was needed. Activity level as directed by myself along with Dr. Ross. The patient will continue on ProAir HFA inhaler, use as directed, Lipitor 40 mg p.o. daily, cetirizine 10 mg p.o. at bedtime, Plavix 75 mg daily, Flexeril 10 mg q.i.d., Restasis one drop b.i.d., dicyclomine 20 mg p.o. t.i.d. with meals, diltiazem 24-hour 180 mg p.o. daily, doxepin 100 mg p.o. at bedtime, Lasix 40 mg daily, Dilaudid 8 mg p.o. q.8., nebulizer treatments of ipratropium and albuterol q.i.d., losartan potassium 100 mg p.o. daily, meclizine 25 mg p.o. at bedtime, metformin 500 mg p.o. daily, nitroglycerin 0.4 mg sublingual q.5 minutes x3 p.r.n. for chest pain, Zofran 4 mg p.o. t.i.d. for nausea, AcipHex 20 mg p.o. daily, Imitrex 25 mg p.o. daily p.r.n., triamterene/hydrochlorothiazide 37.5/25 mg one tablet daily. The patient will be following up with me in outpatient in my office in the next 2 to 3 weeks. Instructed to contact my office sooner if there is any recurrence of symptoms or any further questions or concerns. Dictated by KARO Giron Estuardo Wheeler MD CC/ANDRIY /[id number]
== END 2019-12-07 12:01 | disposition home or self-care (01) | DRG 280 ==
LOC: ER 21:18 → ERHOLD 12-03 00:03 → MED/SURG2 12-03 01:17 → OBSVTOIN 12-04 11:05
PROC: 4A023N8 Measurement of Cardiac Sampling and Pressure, Bilateral, Percutaneous Approach (ICD-10-PCS; principal; 2019-12-06)
PROC: B2111ZZ Fluoroscopy of Multiple Coronary Arteries using Low Osmolar Contrast (ICD-10-PCS; 2019-12-06)
PROC: B3101ZZ Fluoroscopy of Thoracic Aorta using Low Osmolar Contrast (ICD-10-PCS; 2019-12-06)
PROC: B2151ZZ Fluoroscopy of Left Heart using Low Osmolar Contrast (ICD-10-PCS; 2019-12-06)
DX: I21.4 Non-ST elevation (NSTEMI) myocardial infarction (principal); I50.43 Acute on chronic combined systolic (congestive) and diastolic (congestive) heart failure; J44.1 Chronic obstructive pulmonary disease with (acute) exacerbation; I11.0 Hypertensive heart disease with heart failure; I73.9 Peripheral vascular disease, unspecified; I25.10 Atherosclerotic heart disease of native coronary artery without angina pectoris; K52.9 Noninfective gastroenteritis and colitis, unspecified; Z77.22 Contact with and (suspected) exposure to environmental tobacco smoke (acute) (chronic); Z87.891 Personal history of nicotine dependence; E86.0 Dehydration
CPT/HCPCS: 36415; 71045; 71046; 74176; 75605; 75625; 80048; 80053; 81001; 82150; 82550; 82553; 82728; 82948; 83690; 83880; 84484; 85025; 85610; 85730; 86140; 87400; 93005; 93306; 93458; 94640; 96361; 96374; 96375; 99152; 99153; 99284; C1769; C1887; G0378; J1200; J1644; J1650; J2001; J2250; J2405; J2930; J3010; J7030; J7512; Q9967

== ENCOUNTER 2020-04-11 21:30 | Inpatient (IN) | payer OTHER ==
[~2020-04-11] VITALS: Ht 162.6 cm; Wt 53.2 kg
--- NOTE | 2020-04-11 21:54 | Emergency Department Note ---
History of Present Illnes History of Present Illness History of Present Illness This is a 64 year old female with 4 day h/o of weakness n/v. Denies fevers, CP or myalgias . Onset (how long ago): day(s) Radiation: Reports non-radiation Severity: moderate Onset quality: gradual Duration (how long): day(s) (4) Timing of current episode: constant Progression: worsening Chronicity: new Context: Reports recent illness Exacerbating factors: none, eating Associated symptoms: Reports nausea/vomiting, Reports weakness Treatments prior to arrival: none Past Medical/Family History Physician Review I have reviewed the patient's past medical and family history. Any updates have been documented here. Past Medical History Recent Fever: No Clinical Suspicion of Infectio: Yes New/Unexplained Change in Ment: No Past Medical History: Hypertension, Diabetes, COPD, CHF, Asthma, Hyperlipedemia Other Medical History: has quit smoking 3 months ago Past Surgical History: Cholecysctectomy, Appendectomy, Hysterectomy, CABG, T&A, Hernia Repair Other Surgery: cabg 2004 colonoscopy 7 months ago Social History Smoking Cessation: Never Smoker Alcohol Use: None Any Illegal Drug Use: No Other Last Tetanus: <10 YRS Review of Systems Review of Systems Constitutional: Reports as per HPI, Reports malaise, Reports weakness; Denies fever EENTM: Reports no symptoms Cardiovascular: Denies chest pain Respiratory: Reports no symptoms Gastrointestinal: Reports as per HPI, Reports nausea, Reports vomiting Genitourinary: Reports no symptoms Musculoskeletal: Reports no symptoms Integumentary: Reports no symptoms Neurological: Reports no symptoms Psychological: Reports no symptoms Endocrine: Reports no symptoms Hematological/Lymphatic: Reports no symptoms Physical Exam Related Data Allergies: Coded Allergies: Iodine and Iodide Containing Produc (Verified Allergy, Severe, 12/04/18) sucralfate (Verified Allergy, Mild, RASH, HIVES, BLISTERS, 02/20/12) Penicillins (Verified Allergy, Unknown, 03/20/10) Sulfa (Sulfonamide Antibiotics) (Verified Allergy, Unknown, 03/20/10) acetaminophen (Verified Allergy, Unknown, 03/20/10) adhesive tape (Verified Allergy, Unknown, 03/30/10) aspirin (Verified Allergy, Unknown, 03/20/10) azithromycin (Verified Allergy, Unknown, 03/20/10) castor oil (Verified Allergy, Unknown, 03/20/10) cephalexin (Verified Allergy, Unknown, 03/20/10) codeine (Verified Allergy, Unknown, 03/20/10) doxycycline (Verified Allergy, Unknown, 03/20/10) erythromycin base (Verified Allergy, Unknown, 03/20/10) escitalopram (Verified Allergy, Unknown, 12/02/18) eszopiclone (Verified Allergy, Unknown, 12/02/18) iodine (Verified Allergy, Unknown, 03/20/10) levofloxacin (Verified Allergy, Unknown, 03/20/10) mineral oil (Verified Allergy, Unknown, 03/20/10) oxiconazole (Verified Allergy, Unknown, 03/20/10) oxycodone (Verified Allergy, Unknown, 03/30/10) pentazocine (Verified Allergy, Unknown, 03/20/10) pregabalin (Verified Allergy, Unknown, 03/20/10) prochlorperazine (Verified Allergy, Unknown, 03/20/10) propoxyphene (Verified Allergy, Unknown, 03/20/10) tetracycline (Verified Allergy, Unknown, 03/20/10) tramadol (Verified Allergy, Unknown, 03/20/10) Vital signs reviewed: Yes Physical Exam CONSTITUTIONAL Constitutional: Present cachectic, Present ill appearing HENT HENT: Present normocephalic, Present atraumatic, Present oropharynx clear/moist, Present nose normal HENT L/R: Present left ext ear normal, Present right ext ear normal EYES Eyes: Reports PERRL, Reports conjunctivae normal NECK Neck: Present ROM normal PULMONARY Pulmonary: Present effort normal, Present breath sounds normal CARDIOVASCULAR Cardiovascular: Present regular rhythm, Present heart sounds normal, Present capillary refill normal, Present normal rate GASTROINTESTINAL Abdominal: Present soft, Present nontender, Present bowel sounds normal GENITOURINARY Genitourinary: Present exam deferred SKIN Skin: Present warm, Present dry MUSCULOSKELETAL Musculoskeletal: Present ROM normal NEUROLOGICAL Neurological: Present alert, Present oriented x 3, Present no gross motor or sensory deficits PSYCHOLOGICAL Psychological: Present mood/affect normal, Present judgement normal Results Laboratory Lab results reviewed: Yes Laboratory comments Laboratory Tests Test 04/12/20 00:53 04/12/20 00:00 04/11/20 22:08 Urine Color Yellow (YELLOW) Urine Clarity Clear (CLEAR) Urine pH 6 (5 - 7) Urine Specific [place] 1.020 (1.010-1.025) Urine Protein Negative (NEGATIVE) Urine Glucose (UA) Negative (NEGATIVE) Urine Ketones 1+ (NEGATIVE) Urine Blood Negative (NEGATIVE) Urine Nitrite Negative (NEGATIVE) Urine Bilirubin Negative (NEGATIVE) Urine Urobilinogen 0.2 mg/dL (0.2 - 1) Urine Leukocyte Esterase Negative (NEGATIVE) Urine RBC 6-10 /HPF (0-5) Urine WBC 11-20 /HPF (0-5) Urine Epithelial Cells Few /LPF (NONE) Urine Transitional Epithelial Cells Few (NONE) Urine Renal Epithelial Cells Few (NONE) Urine Bacteria Moderate /HPF (NONE) White Blood Count 25.24 x10e3/uL (4.8-10.8) Red Blood Count 4.39 x10e6/uL (3.6-5.1) Hemoglobin 13.3 g/dL (12.0-16.0) Hematocrit 37.9 % (34.2-44.1) Mean Corpuscular Volume 86.3 fL (81-99) Mean Corpuscular Hemoglobin 30.3 pg (28-32) Mean Corpuscular Hemoglobin Concent 35.1 g/dL (31-35) Red Cell Distribution Width 11.9 % (11.7-14.4) Platelet Count 314 x10e3/uL (140-360) Neutrophils (%) (Auto) 85.1 % (38.7-80.0) Lymphocytes (%) (Auto) 7.8 % (18.0-39.1) Monocytes (%) (Auto) 5.1 % (4.4-11.3) Eosinophils (%) (Auto) 0.7 % (0.0-6.0) Basophils (%) (Auto) 0.4 % (0.0-1.0) Neutrophils # (Auto) 21.5 (2.1-6.9) Lymphocytes # (Auto) 2.0 (1.0-3.2) Monocytes # (Auto) 1.3 (0.2-0.8) Eosinophils # (Auto) 0.2 (0.0-0.4) Basophils # (Auto) 0.1 (0.0-0.1) Absolute Immature Granulocyte (auto 0.22 x10e3/uL (0-0.1) Sodium Level 127 mmol/L (136-145) Potassium Level 3.2 mmol/L (3.5-5.1) Chloride Level 88 mmol/L (98-107) Carbon Dioxide Level 22 mmol/L (22-29) Anion Gap 20.2 mmol/L (8-16) Blood Urea Nitrogen 54 mg/dL (7-26) Creatinine 2.47 mg/dL (0.57-1.11) Estimat Glomerular Filtration Rate 20 ML/MIN (60-) BUN/Creatinine Ratio 22 (6-25) Glucose Level 74 mg/dL (74-118) Lactic Acid Level 1.0 mmol/L (0.5-2.0) Calcium Level 16.4 mg/dL (8.4-10.2) Total Bilirubin 0.3 mg/dL (0.2-1.2) Aspartate Amino Transf (AST/SGOT) 59 IU/L (5-34) Alanine Aminotransferase (ALT/SGPT) 23 IU/L (0-55) Alkaline Phosphatase 92 IU/L (40-150) Creatine Kinase 417 IU/L (29-168) Creatine Kinase MB 10.40 ng/mL (0-5.0) Troponin I 0.275 ng/mL (0-0.300) B-Type Natriuretic Peptide 147.5 pg/mL (0-100) Total Protein 7.2 g/dL (6.5-8.1) Albumin 4.2 g/dL (3.5-5.0) Globulin 3.0 g/dL (2.3-3.5) Albumin/Globulin Ratio 1.4 (0.8-2.0) Lipase 15 U/L (8-78) Imaging Imaging results reviewed: Yes Impressions [place] [id number] Patient Name: KATIANA GOLDMAN MR #: [id number] : 1955 Age/Sex: 64/F Req #: [id number] Adm Physician: Ordered by: TIARA RUSSELL DO Report #: [id number] Location: ER Room/Bed: Procedure: [id number] CT/CT CHEST WO Exam Date: 04/11/20 Exam Time: 2330 REPORT STATUS: Signed EXAM: CT Chest WITHOUT contrast INDICATION: ^n/v weakness COMPARISON: CT dated 12/02/2019. CT dated 07/10/2012. TECHNIQUE: Chest was scanned utilizing a multidetector helical scanner from the lung apex through the level of the adrenal glands without administration of IV contrast. Absence of intravenous contrast decreases sensitivity for detection of lymphadenopathy and vascular pathology. Coronal and sagittal reformations were obtained. Routine protocol was performed. IV CONTRAST: None COMPLICATIONS: None RADIATION DOSE: Total DLP: 500.58 mGy*cm Estimated effective dose: (DLP x 0.014 x size factor) mSv CTDIvol has been reviewed. It is below the limits set by the Radiation Protocol Committee (RPC). Dose modulation, iterative reconstruction, and/or weight based adjustment of the mA/kV was utilized to reduce the radiation dose to as low as reasonably achievable. FINDINGS: LINES/ TUBES: None. LUNGS AND AIRWAYS: Mild dependent atelectasis. Question mild centrilobular emphysema. PLEURA: The pleural spaces are clear. HEART AND MEDIASTINUM: The thyroid gland is normal. No mediastinal, hilar or axillary lymphadenopathy. The heart is normal in size. There is no pericardial effusion. Moderate coronary artery calcifications. Atherosclerotic disease of the aorta UPPER ABDOMEN: Significant calcified plaque in the imaged upper abdominal aorta has a similar appearance to 2012. BONES: Bones are demineralized. Age-indeterminate mild compression deformities of T7 vertebral body involving less than 10% of the vertebral body height. T11, and L1 compression deformities are unchanged. SOFT TISSUES: Unremarkable. IMPRESSION: No acute thoracic process. Signed by: Anand Akins MD on 04/12/2020 12:39 AM Dictated By: ANAND AKINS MD Transcribed By: LENI on 04/12/2038 COPY TO: TIARA RUSSELL DO~ Procedures 12 Lead ECG Interpretation ECG Interpretation : ECG: ECG 1 Quality Supervisor: Interpreted by ED physician Date: Apr 11, 2020 Time: 23:27 Prior ECG tracings: reviewed Rhythm: sinus rhythm Ectopy: frequent PVC's Rate: normal BPM: 90 QRS axis: normal ST segments normal: Yes T waves normal: Yes Q waves: aVR Clinical Impression: abnormal ECG Assessment & Plan Medical Decision Making MDM 64 yof with intractable n/v and weakness : Diff Dx : COVID-19 infection, pneu monia, sepsis, UTI, electrolyte abnormality Assessment & Plan Final Impression: (1) Hypercalcemia (2) Hypokalemia (3) Hyponatremia (4) Vomiting (5) Renal failure Depart Disposition: ADMITTED Home Meds Reported Medications Triamterene/Hctz (TRIAMTERENE-HCTZ 37.5-25 MG TB) 1 Ea Tab, 1 EACH PO, TAB 11/21/19 Albuterol Sulf* (PROAIR HFA INHALER*) 8.5 Gm Inh, INH PRN 11/21/19 Ipratropium/Albuterol Sulfate (IPRAT-ALBUT 0.5-3(2.5) MG/3 ML) 3 Ml Ampul.neb, 3 ML NEB QID 11/21/19 Meclizine Hcl (MECLIZINE HCL) 12.5 Mg Tablet, 25 MG PO HS, TAB 11/21/19 Doxepin Hcl (DOXEPIN HCL) 25 Mg Capsule, 100 MG PO HS, #30 CAP 11/20/19 Cetirizine Hcl (ZYRTEC) 10 Mg Capsule, 10 MG PO HS THERAPEUTICALLY SUBSTITUTED WITH LORATIDINE 10MG 11/20/19 Cyclobenzaprine Hcl (FLEXERIL) 5 Mg Tablet, 10 MG QID 11/20/19 Sumatriptan Succinate (IMITREX) 25 Mg Tablet, 25 MG PO DAILY PRN for HEADACHE 12/04/18 Losartan Potassium (LOSARTAN POTASSIUM) 100 Mg Tablet, 100 MG PO DAILY, TAB 12/02/18 Rabeprazole Sodium (ACIPHEX) 20 Mg Tablet.dr, 20 MG PO DAILY THERAPEUTIC INTERCHANGE WITH PROTONIX PER [place] 12/02/18 Furosemide (LASIX) 40 Mg Tablet, 40 MG PO DAILY PRN for SHORTNESS OF BREATH, #30 TAB 04/12/18 Ondansetron (ZOFRAN ODT) 4 Mg Tab.rapdis, 4 MG PO TID, TAB 8/5/18 Hydromorphone Hcl (DILAUDID) 2 Mg Tab, 8 MG PO Q8H 04/12/18 Diltiazem Hcl (DILTIAZEM 24HR ER) 180 Mg Capcr, 180 MG PO DAILY DAILY AT 1600 04/12/18 [Zyrtec-Ceterizine] No Conflict Check, 10 MG HS 02/21/12 [Epipen] No Conflict Check, PRN 02/21/12 Cyclosporine (Restasis) 1 Each Droperette, 1 EACH OP BID 02/21/12 Nitroglycerin (Nitroglycerin) 0.4 Mg Tab.subl, 0.4 MG SL PRN 02/21/12 Clopidogrel Bisulfate (Plavix) 75 Mg Tablet, 75 MG PO DAILY 02/21/12 Atorvastatin Calcium (Lipitor) 40 Mg Tablet, 40 MG PO DAILY 02/21/12 [Proair] No Conflict Check, PRN 02/21/12 Metformin Hcl (METFORMIN HCL ER) 500 Mg Tab.er.24, 500 MG PO DAILY 02/20/12 Dicyclomine Hcl (Dicyclomine Hcl) 20 Mg Tablet, 20 MG PO TID WITH MEALS 02/20/12 TIARA RUSSELL DO Apr 11, 2020 21:54
[2020-04-11] MEDS ORDERED: ONDANSETRON HCL INJ 2MG/ML 2ML 2 MG/ML VIAL IV STA (21:55)
[2020-04-11] MEDS ORDERED: SODIUM CHLORIDE 0.9% 1000ML 1,000 ML IV STA (21:55)
[2020-04-11 22:26] LABS: BASOPHILS # (AUTO) 0.1 (0.0-0.1); BASOPHILS % 0.4 % (0.0-1.0); EOSINOPHILS # (AUTO) 0.2 (0.0-0.4); EOSINOPHILS % 0.7 % (0.0-6.0); HEMATOCRIT 37.9 % (34.2-44.1); HEMOGLOBIN 13.3 g/dL (12.0-16.0); LYMPHOCYTES % 7.8 % (18.0-39.1); MEAN CORPUSCULAR HEMOGLOBIN 30.3 pg (28-32); MEAN CORPUSCULAR HGB CONC 35.1 g/dL (31-35); MEAN CORPUSCULAR VOLUME 86.3 fL (81-99); MONOCYTES # (AUTO) 1.3 (0.2-0.8); MONOCYTES % 5.1 % (4.4-11.3); NEUTROPHILS # (AUTO) 21.5 (2.1-6.9); NEUTROPHILS % 85.1 % (38.7-80.0); PLATELET COUNT 314 x10e3/uL (140-360); RED BLOOD COUNT 4.39 x10e6/uL (3.6-5.1); RED CELL DISTRIBUTION WIDTH 11.9 % (11.7-14.4)
[2020-04-11 22:44] LABS: ALBUMIN 4.2 g/dL (3.5-5.0); ALBUMIN/GLOBULIN RATIO 1.4 (0.8-2.0); ANION GAP 20.2 mmol/L (8-16); CREATININE, SERUM 2.47 mg/dL (0.57-1.11); POTASSIUM 3.2 mmol/L (3.5-5.1)
[2020-04-11 22:49] LABS: CALCIUM 16.4 mg/dL (8.4-10.2)
[2020-04-11] MEDS ORDERED: MEROPENEM 1GRAM 1 GM in SODIUM CHLORIDE 0.9% 100 ML 100 ML IV STA (22:50)
[2020-04-11 22:52] LABS: CREATINE KINASE MB 10.4 ng/mL (0-5.0)
[2020-04-11] MEDS ORDERED: MEROPENEM 1 GM VIAL ONE (23:20)
[2020-04-11] MEDS ORDERED: SODIUM CHLORIDE 0.9% 100 ML ONE (23:21)
[2020-04-11] MEDS ORDERED: SODIUM CHLORIDE 0.9% 1000ML 1,000 ML IV SCH (23:30)
--- NOTE | 2020-04-11 23:59 | Diagnostic Imaging Report ---
EXAMINATION: CHEST SINGLE (PORTABLE) INDICATION: ^ERMD ORDER COMPARISON: None FINDINGS: TUBES and LINES: Radiograph dated 12/05/2019. LUNGS: Mild bibasilar strandy opacities. PLEURA: No pleural effusion or pneumothorax. HEART AND MEDIASTINUM: The cardiomediastinal silhouette is unremarkable. BONES AND SOFT TISSUES: No acute osseous lesion. Soft tissues are unremarkable. UPPER ABDOMEN: No free air under the diaphragm. IMPRESSION: Mild bibasilar strandy opacities are favored represent atelectasis, although early pneumonia/viral pneumonia could be considered in the appropriate clinical context. Signed by: Shay Zhang MD on 04/11/2020 11:55 PM
--- OUTSIDE RECORDS SUMMARY | 2020-04-12 00:33 | XMS REPORT | Clinical Summary ---
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 Poultry Name Role Phone Andie San MD PCP [phone] Allergies Comments Active Allergy Reactions Severity Noted Date Adhesive Tape-Silicones 04/16/2017 Aspirin 04/16/2017 Azithromycin 04/16/2017 [place] Oil 04/16/2017 Codeine 04/16/2017 Prochlorperazine 04/16/2017 Propoxyphene 04/16/2017 N-Acetaminophen Propoxyphene 04/16/2017 Doxycycline 04/16/2017 Erythromycin 04/16/2017 Iodine 04/16/2017 Cephalexin 04/16/2017 Levofloxacin 04/16/2017 Pregabalin 04/16/2017 Mineral Oil 04/16/2017 Oxycodone 04/16/2017 Penicillins 04/16/2017 Oxycodone-Acetaminophen 04/16/2017 Oxycodone 04/16/2017 Vwa-Aetfelslw-Pbo Sulfa (Sulfonamide 04/16/2017 Antibiotics) Pentazocine Lactate 04/16/2017 [...] Use Types Packs/Day Years Used Never Smoker Drinks/Week oz/Week Comments Alcohol Use No Sex Assigned at Date Recorded Not on file Industry Job Start Date Occupation Not on file Not on file Not on file Travel End Travel History Travel Start No recent travel history available. 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
--- OUTSIDE RECORDS SUMMARY | 2020-04-12 00:34 | XMS REPORT | Continuity of Care Document ---
Author Author [facility] Organization [facility] Address [address] [place] [address] Phone Unavailable Care Team Providers Care Dietitian Assistant Name Role Phone JASMEET PRECIADO, RUSTY PCP TIARA RUSSELL Attphys Unavailable ALAMO, SOUHEIL Attphys Unavailable JEWEL LEÓN Attphys Unavailable JASPER, LISA Attphys Unavailable ALAMO, SOUHEIL Admphys Unavailable JASPER, LISA Admphys Unavailable Payers Payer Name Policy Type Policy Number Effective Date Expiration Date Shreyas Mercado Ppo [id number] 2017 00:00:00 [facility] Problems Condition Name Condition Details Condition Category Status Onset Date Resolution Date Last Treatment Date Treating Clinician Comments Source Intractable nausea and vomiting Intractable nausea and vomiting Dis ease Active 2017-04-17 00:00:00 Silvino Aquino Hypokalemia Hypokalemia Problem Active [facility] Hyponatremia Hyponatremia Problem Active [facility] Urinary tract infection UTI (urinary tract infection) Problem Active [facility] Vomiting Vomiting Problem Active [facility] Gastrointestinal hemorrhage GI bleeding Problem Active [facility] DEHYDRATION Problem Active [facility] Allergies, Adverse Reactions, Alerts Allergy Name Allergy Type Status Severity Reaction(s) Onset Date Inacti ve Date Treating Clinician Comments Source prochlorperazine edisylate DA Active SV 2020-02-08 00:00:0 0 [facility] prochlorperazine maleate DA Active SV 2020-02-08 00:00:00 [facility] oxycodone HCl DA Active SV 2020-02-08 00:00:00 [facility] propoxyphene HCl DA Active SV 2020-02-08 00:00:00 [facility] propoxyphene napsylate DA Active SV 2020-02-08 00:00:00 [facility] Pentazocine Lactate DA Active GA 2020-02-08 00:00:00 [facility] Penicillins DA Active SV 2020-02-08 00:00:00 [facility] Sulfa (Sulfonamide Antibiotics) DA Active SV 2020-02-08 00 :00:00 [facility] Shellfish DA Active SV 2020-02-08 00:00:00 [facility] iodine DA Active SV 2020-02-08 00:00:00 [facility] castor oil FA Active SV 2020-02-08 00:00:00 [facility] mineral oil DA Active SV 2020-02-08 00:00:00 [facility] codeine DA Active SV 2020-02-08 00:00:00 [facility] oxycodone DA Active SV 2020-02-08 00:00:00 [facility] aspirin DA Active SV 2020-02-08 00:00:00 [facility] acetaminophen DA Active SV 2020-02-08 00:00:00 [facility] cephalexin DA Active SV 2020-02-08 00:00:00 [facility] tetracycline DA Active SV 2020-02-08 00:00:00 [facility] doxycycline DA Active SV 2020-02-08 00:00:00 [facility] erythromycin base DA Active SV 2020-02-08 00:00:00 [facility] adhesive tape DA Active SV 2020-02-08 00:00:00 [facility] azithromycin DA Active SV 2020-02-08 00:00:00 [facility] tramadol DA Active SV 2020-02-08 00:00:00 [facility] levofloxacin DA Active 2020-02-08 00:00:00 [facility] bee pollen DA Active SV 2020-02-08 00:00:00 [facility] pregabalin DA Active SV 2020-02-08 00:00:00 [facility] HORSERADISH DA Active SV 2020-02-08 00:00:00 [facility] Iodine and Iodide Containing Produc Allergy to Substance Active S evere 2018-12-04 00:00:00 [facility] Eszopiclone Allergy to Substance Active 2018-12-02 00:00:00 [facility] Escitalopram Allergy to Substance Active 2018-12-02 00:00:0 0 [facility] bupivacaine DA Active GA 2018-03-24 00:00:00 [facility] Pentazocine Lactate DA Active GA 2018-03-24 00:00:00 [facility] Shellfish DA Active SV 2018-03-24 00:00:00 [facility] oxycodone DA Active SV 2018-03-24 00:00:00 [facility] aspirin DA Active GA 2018-03-24 00:00:00 [facility] doxycycline DA Active U 2018-03-24 00:00:00 [facility] bee pollen DA Active SV 2018-03-24 00:00:00 [facility] HORSERADISH DA Active U 2018-03-24 00:00:00 [facility] prochlorperazine edisylate DA Active U 2017-05-30 00:00:0 0 [facility] prochlorperazine maleate DA Active U 2017-05-30 00:00:00 [facility] oxycodone HCl DA Active U 2017-05-30 00:00:00 [facility] propoxyphene HCl DA Active U 2017-05-30 00:00:00 [facility] propoxyphene napsylate DA Active U 2017-05-30 00:00:00 [facility] Penicillins DA Active U 2017-05-30 00:00:00 [facility] Sulfa (Sulfonamide Antibiotics) DA Active U 2017-05-30 00 :00:00 [facility] iodine DA Active U 2017-05-30 00:00:00 [facility] castor oil FA Active U 2017-05-30 00:00:00 [facility] mineral oil DA Active U 2017-05-30 00:00:00 [facility] codeine DA Active U 2017-05-30 00:00:00 [facility] acetaminophen DA Active U 2017-05-30 00:00:00 [facility] cephalexin DA Active U 2017-05-30 00:00:00 [facility] tetracycline DA Active U 2017-05-30 00:00:00 [facility] erythromycin base DA Active U 2017-05-30 00:00:00 [facility] adhesive tape DA Active U 2017-05-30 00:00:00 [facility] azithromycin DA Active U 2017-05-30 00:00:00 [facility] tramadol DA Active U 2017-05-30 00:00:00 [facility] levofloxacin DA Active U 2017-05-30 00:00:00 [facility] pregabalin DA Active U 2017-05-30 00:00:00 [facility] Adhesive Tape-Silicones Propensity to adverse reactions to drug Activ e 2017-04-16 00:00:00 Silvino georges Aspirin Propensity to adverse reactions to drug Active 2017-04-16 00:00:00 Silvino Aquino Azithromycin Propensity to adverse reactions to drug Active 2017-04-16 00:00:00 Silvino mon [place] Propensity to adverse reactions to drug Active 2017-04-16 00:00:00 Silvino mon Codeine Propensity to adverse reactions to drug Active 2017-04-16 00:00:00 Silvino Aquino Prochlorperazine Propensity to adverse reactions to drug Active 2017-04-16 00:00:00 Silvino mon Propoxyphene N-Acetaminophen Propensity to adverse reactions to drug Active 2017-04-16 00:00:00 Silvino Wheeler odist Propoxyphene Propensity to adverse reactions to drug Active 2017-04-16 00:00:00 Silvino mon Doxycycline Propensity to adverse reactions to drug Active 2017-04-16 00:00:00 Silvino mon Erythromycin Propensity to adverse reactions to drug Active 2017-04-16 00:00:00 Silvino Narayan t Iodine Propensity to adverse reactions to drug Active 2017-04-16 00:00:00 Silvino Aquino Cephalexin Propensity to adverse reactions to drug Active 2017-04-16 00:00:00 Silvino Narayan t Levofloxacin Propensity to adverse reactions to drug Active 2017-04-16 00:00:00 Silvino Narayan t Pregabalin Propensity to adverse reactions to drug Active 2017-04-16 00:00:00 Silvino Narayan t Mineral Oil Propensity to adverse reactions to drug Active 2017-04-16 00:00:00 Silvino Narayan t Oxycodone Propensity to adverse reactions to drug Active 2017-04-16 00:00:00 Silvino Narayan t Penicillins Propensity to adverse reactions to drug Active 2017-04-16 00:00:00 Silvino Narayan t Oxycodone-Acetaminophen Propensity to adverse reactions to drug Activ e 2017-04-16 00:00:00 Silvino Wheeler odist Oxycodone Pee-Pyysydbge-Eoh Propensity to adverse reactions to drug A ctive 2017-04-16 00:00:00 Silvino Meth odist Sulfa (Sulfonamide Antibiotics) Propensity to adverse reactions to drug Active 2017-04-16 00:00:00 [facility] Pentazocine Lactate Propensity to adverse reactions to drug Active 2017-04-16 00:00:00 Silvino Meth odist Tetracyclines Propensity to adverse reactions to drug Active 2017-04-16 00:00:00 Silvino mon Tramadol Propensity to adverse reactions to drug Active 2017-04-16 00:00:00 Silvino Aquino Sucralfate Allergy to Substance Active Mild RASH, HIVES, BL ISTERS 2012-02-20 00:00:00 [facility] Oxycodone Allergy to Substance Active 2010-03-30 00:00:00 [facility] adhesive tape Allergy to Substance Active 2010-03-30 00:00: 00 [facility] Penicillin Allergy to Substance Active 2010-03-20 00:00:00 [facility] Sulfa (Sulfonamide Antibiotics) Allergy to Substance Active 2010-03-20 00:00:00 [facility] Iodine Allergy to Substance Active 2010-03-20 00:00:00 [facility] Castleton oil Allergy to Substance Active 2010-03-20 00:00:00 [facility] Mineral oil Allergy to Substance Active 2010-03-20 00:00:00 [facility] Prochlorperazine Allergy to Substance Active 2010-03-20 00: 00:00 [facility] Codeine Allergy to Substance Active 2010-03-20 00:00:00 [facility] Propoxyphene Allergy to Substance Active 2010-03-20 00:00:0 0 [facility] Pentazocine Allergy to Substance Active 2010-03-20 00:00:00 [facility] Aspirin Allergy to Substance Active 2010-03-20 00:00:00 [facility] Acetaminophen Allergy to Substance Active 2010-03-20 00:00: 00 [facility] Cephalexin Allergy to Substance Active 2010-03-20 00:00:00 [facility] Tetracycline Allergy to Substance Active 2010-03-20 00:00:0 0 [facility] Doxycycline Allergy to Substance Active 2010-03-20 00:00:00 [facility] Erythromycin base Allergy to Substance Active 2010-03-20 00 :00:00 [facility] Azithromycin Allergy to Substance Active 2010-03-20 00:00:0 0 [facility] Tramadol Allergy to Substance Active 2010-03-20 00:00:00 [facility] Oxiconazole Allergy to Substance Active 2010-03-20 00:00:00 [facility] Levofloxacin Allergy to Substance Active 2010-03-20 00:00:0 0 [facility] Pregabalin Allergy to Substance Active 2010-03-20 00:00:00 [facility] Social History Social Habit Start Date Stop Date Quantity Comments Source Sex Assigned At Ilana zak Aquino Alcohol intake 2017-04-16 00:00:00 2017-04-16 00:00:00 Current non-drinker of alcohol (finding) Silvino Aquino Smoking Status Start Date Stop Date Source Never smoker Silvino Narayan t Medications Ordered Medication Name Filled Medication Name Start Date Stop Da te Current Medication? Ordering Clinician Indication Dosage Frequency Signature (SIG) Comments Components Source albuterol (PROAIR HFA,PROVENTIL HFA,VENTOLIN HFA) 90 mcg/act uation inhaler 2017-04-22 23:26:12 Yes 2{puff} Q6H Inhale 2 puffs every 6 (six) hours as needed for wheezing. Silvino Aquino ALPRAZolam (XANAX) 1 MG tablet 2017-04-22 23:26:12 Yes 1mg QD Take 1 mg by mouth daily. Silvino Aquino ALPRAZolam (XANAX) 1 MG tablet 2017-04-22 23:26:12 Yes 2mg QD Take 2 mg by mouth nightly. Silvino Aquino atorvastatin (LIPITOR) 40 MG tablet 2017-04-22 23:26:12 Yes 40mg QD Take 40 mg by mouth daily. Silvino Aquino cetirizine (ZyrTEC) 10 MG tablet 2017-04-22 23:26:12 Yes 10mg QD Take 10 mg by mouth daily. Silvino Aquino clopidogrel (PLAVIX) 75 mg tablet 2017-04-22 23:26:12 Yes 75mg QD Take 75 mg by mouth daily. Silvino Aquino cyclobenzaprine (FLEXERIL) 10 mg tablet 2017-04-22 23:26:12 Yes 10mg Q.25D Take 10 mg by mouth 4 (four) times a day as needed for muscle sp asms. Silvino Aquino dicyclomine (BENTYL) 20 mg tablet 2017-04-22 23:26:12 Ye s 20mg Q.[id number] Take 20 mg by mouth 3 (three) times a day. Silvino Aquino doxepin (SINEquan) 50 MG capsule 2017-04-22 23:26:12 Yes 50mg QD Take 50 mg by mouth daily. Silvino Aquino hydromorPHONE (DILAUDID) 8 MG tablet 2017-04-22 23:26:12 Yes 8mg Q.[id number] Take 8 mg by mouth 3 (three) times a day. Silvino Aquino meclizine (ANTIVERT) 25 mg tablet 2017-04-22 23:26:12 Yes 25mg Q.25D Take 25 mg by mouth 4 (four) times a day. Silvino Aquino metFORMIN (GLUCOPHAGE) 500 mg tablet 2017-04-22 23:26:12 Ye s 500mg Q.5D Take 500 mg by mouth 2 (two) times a day with meals. Silvino Aquino olmesartan (BENICAR) 20 MG tablet 2017-04-22 23:26:12 Yes 20mg Q.5D Take 20 mg by mouth 2 (two) times a day. Ilia Aquino ondansetron (ZOFRAN) 4 MG tablet 2017-04-22 23:26:12 Yes 4mg Q8H Take 4 mg by mouth every 8 (eight) hours as needed for nausea or vomiting. Silvino Aquino RABEprazole (ACIPHEX) 20 mg EC tablet 2017-04-22 23:26:12 Y es 20mg Q.5D Take 20 mg by mouth 2 (two) times a day. Silvino Aquino triamterene-hydrochlorothiazid (MAXZIDE-25) 37.5-25 mg per t ablet 2017-04-22 23:26:12 Yes 1{tbl} QD Take 1 tablet by mouth daily. Silvino Aquino ipratropium-albuterol (DUO-NEB) 0.5-2.5 mg/mL nebulizer 2017-04-22 23:26:12 Yes 3mL Q.[id number] Take 3 mL by nebulization 3 (three) times a day. Silvino Aquino fluticasone-salmeterol (ADVAIR) 250-50 mcg/dose DISKUS 2017-04-22 23:26:12 Yes 1{puff} Q.5D Inhale 1 puff 2 (two) times a day. Silvino Aquino Albuterol Sulfate (Proair Hfa Inhaler*) 8.5 Gm Inh Alb uterol Sulfate (Proair Hfa Inhaler*) 8.5 Gm Inh Yes As Needed [facility] Atorvastatin Calcium (Lipitor) 40 Mg Tablet Atorvastat in Calcium (Lipitor) 40 Mg Tablet Yes 40 Daily [facility] Cetirizine Hcl (Zyrtec) 10 Mg Capsule Cetirizine Hcl (Zyrtec) 10 Mg Capsule Yes 10 Bedtime [facility] Clopidogrel Bisulfate (Plavix) 75 Mg Tablet Clopidogre l Bisulfate (Plavix) 75 Mg Tablet Yes 75 Daily [facility] Cyclobenzaprine Hcl (Flexeril) 5 Mg Tablet Cyclobenzap rine Hcl (Flexeril) 5 Mg Tablet Yes 10 Four Times Daily [facility] Cyclosporine (Restasis) 1 Each Droperette Cyclosporine (Restasis) 1 Each Droperette Yes 1 Twice A Day [facility] Dicyclomine Hcl 20 Mg Tablet Dicyclomine Hcl 20 Mg Tablet Y es 20 Tid With Meals [facility] Diltiazem Hcl (Diltiazem 24HR Er) 180 Mg Capcr Diltiaz em Hcl (Diltiazem 24HR Er) 180 Mg Capcr Yes 180 Daily [facility] Doxepin Hcl 25 Mg Capsule Doxepin Hcl 25 Mg Capsule Yes 100 Bedtime [facility] Epipen Epipen Yes As Needed [facility] Furosemide (Lasix) 40 Mg Tablet Furosemide (Lasix) 40 Mg Tablet Yes 40 Daily as needed for Shortness Of Breath [facility] Hydromorphone Hcl (Dilaudid) 2 Mg Tab Hydromorphone Hcl (Dilaudid) 2 Mg Tab Yes 8 Every 8 Hours [facility] Ipratropium/Albuterol Sulfate (Iprat-Albut 0.5-3(2.5) Mg/3 Ml) 3 Ml Ampul.neb Ipratropium/Albuterol Sulfate (Iprat-Albut 0.5-3(2.5) Mg/3 Ml) 3 Ml Ampul.neb Yes 3 Four Times Daily [facility] Losartan Potassium 100 Mg Tablet Losartan Potassium 100 Mg Tablet Yes 100 Daily [facility] Meclizine Hcl 12.5 Mg Tablet Meclizine Hcl 12.5 Mg Tablet Y es 25 Bedtime [facility] Metformin Hcl (Metformin Hcl Er) 500 Mg Tab.er.24 Metf ormin Hcl (Metformin Hcl Er) 500 Mg Tab.er.24 Yes 500 Daily [facility] Nitroglycerin 0.4 Mg Tab.subl Nitroglycerin 0.4 Mg Tab.subl Yes .4 As Needed [facility] Ondansetron (Zofran Odt) 4 Mg Tab.rapdis Ondansetron ( Zofran Odt) 4 Mg Tab.rapdis Yes 4 Three Times A Day [facility] Proair Proair Yes As Needed [facility] Rabeprazole Sodium (Aciphex) 20 Mg Tablet.dr Dill le Sodium (Aciphex) 20 Mg Tablet. Yes 20 Daily [facility] Sumatriptan Succinate (Imitrex) 25 Mg Tablet Sumatript an Succinate (Imitrex) 25 Mg Tablet Yes 25 Daily as needed for Headache [facility] Triamterene/Hctz (Triamterene-Hctz 37.5-25 Mg Tb) 1 Ea Tab Triamterene/Hctz (Triamterene-Hctz 37.5-25 Mg Tb) 1 Ea Tab Yes 1 [facility] Zyrtec-Ceterizine Zyrtec-Ceterizine Yes 10 Bedt yecenia [facility] Albuterol Sulfate 0.63 Mg/3 Ml Vial.neb, 1 Inh Inhalat ion Albuterol Sulfate 0.63 Mg/3 Ml Vial.neb, 1 Inh Inhalation 2019-11-21 00:00:00 No 1 Four Times Daily [facility] Ipratropium [place] 0.2 Mg/1 Ml Solution, 0.5 Mg Inhal ation Ipratropium [place] 0.2 Mg/1 Ml Solution, 0.5 Mg Inhalation 2019-11-21 00:00:00 No .5 Four Times Daily [facility] Albuterol Sulfate 4 Mg Tab.sr.12h, 3 Mg Oral Albuterol Sulfate 4 Mg Tab.sr.12h, 3 Mg Oral 2018-12-02 00:00:00 No 3 Four Times [place] [facility] Doxepin Hcl 50 Mg Capsule, 50 Mg Oral Doxepin Hcl 50 Mg Capsule, 50 Mg Oral 2018-12-02 00:00:00 No 50 Bedtime [facility] Hydroco/Apap , Hydroco/Apap , 2018-12-02 00:00:00 No Every 4 Hrs Prn [facility] Morphine Sulfate 60 Mg Tablet.er, 30 Mg Oral Morphine Sulfate 60 Mg Tablet.er, 30 Mg Oral 2018-12-02 00:00:00 No 30 Three Times A Day [facility] Xanax-Alprozalam , 1 Mg Xanax-Alprozalam , 1 Mg 2018-12-02 00:00 :00 No 1 Bedtime [facility] Zofran-Ondesteron , 4 Mg Zofran-Ondesteron , 4 Mg 2018-12-02 00: 00:00 No 4 Three Times A Day [facility] Cyclobenzaprine Hcl (Flexeril) 10 Mg Tablet, 10 Mg Ora Cyclobenzaprine Hcl (Flexeril) 10 Mg Tablet, 10 Mg Oral 2018-04-16 00:00:00 No 10 Three Times A Day [facility] Olmesartan Medoxomil (Benicar) 20 Mg Tablet, 20 Mg Ora l Olmesartan Medoxomil (Benicar) 20 Mg Tablet, 20 Mg Oral 2018-04-12 00:00:00 No 2 0 Daily [facility] Rabeprazole Sodium (Aciphex) 20 Mg Tablet., 20 Mg Or al Rabeprazole Sodium (Aciphex) 20 Mg Tablet., 20 Mg Oral 2018-04-12 00:00:00 No 20 Twice A Day [facility] Procedures Procedure Date / Time Performed Performing Clinician [facility] e X-ray of chest, two views 2019-12-03 00:00:00 ARIS VERMA [facility] CT of abdomen and pelvis without contrast 2019-12-02 00:00:0 0 JAZ HONEYCUTT [facility] Plan of Care Planned Activity Planned Date Details Comments Source Future Scheduled Test 2020-04-08 00:00:00 INFLUENZA VACCINE [code = INFLUENZA VACCINE] Silvino Aquino Future Scheduled Test 2006 00:00:00 BREAST CANCER SCRE ENING [code = BREAST CANCER SCREENING] [facility] Scheduled Test 2006 00:00:00 COLONOSCOPY SCREEN ING [code = COLONOSCOPY SCREENING] [facility] Scheduled Test 2006 00:00:00 SHINGLES VACCINES (#1) [code = SHINGLES VACCINES (#1)] [facility] Scheduled Test 1977 00:00:00 Screening for anthony gnant neoplasm of cervix (procedure) [code = 263842138] [facility] Encounters Start Date/Time End Date/Time Encounter Type Admission Type Attendi [facility] Care Department Encounter ID Source 2019-12-04 11:05:00 2019-12-07 12:01:00 Discharged Inpatient 1 JASMEET [facility] [id number] [facility] 2019-11-19 15:55:00 2019-11-23 13:00:00 Discharged Inpatient 1 ALAMO, [facility] [id number] [facility] 2019-07-31 09:13:00 2019-07-31 09:13:00 Emergency E [facility]NE [facility]NE [id number] [facility] 2018-12-02 22:53:00 2018-12-09 13:33:00 Discharged Inpatient 1 JASMEET [facility] [id number] [facility] 2018-05-28 09:38:00 2018-05-28 09:38:00 Registered Clinic [address] [facility] [id number] [facility] 2018-04-12 21:45:00 2018-04-17 12:47:00 Discharged Inpatient [address] [facility] [id number] [facility] 2017-12-24 09:19:00 2017-12-24 09:19:[address] [facility] [id number] [facility] Results Test Description Test Time Test Comments Results Result Comments Source CHEST SINGLE (PORTABLE) 2020-04-11 23:53:00 [facility] [address] [address] Patient Name: KATIANA GOLDMAN MR #: [id number] : 1955 Age/Sex: 64/F Req #: [id number] Adm Physician: Ordered by: TIARA RUSSELL DO Report #: [id number] Location: ER Room/Bed: Procedure: [id number] DX/CHEST SINGLE (PORTABLE) Exam Date: 04/11/20 Exam Time: 2255 REPORT STATUS: Signed EXAMINATION: CHEST SINGLE (PORTABLE) INDICATION: ERMD ORDER COMPARISON: None FINDINGS: TUBES and LINES: Radiograph dated 12/05/2019. LUNGS: Mild bibasilar strandy opacities. PLEURA: No pleural effusion or pn eumothorax. HEART AND MEDIASTINUM: The cardiomediastinal silhouette is unremarkable. BONES AND SOFT TISSUES: No acute osseous lesion. Soft tissues are unremarkable. UPPER ABDOMEN: No free air under the diaphragm. IMPRESSION: Mild bibasilar strandy opacities are favored represent atelectasis, although early pneumonia/viral pneumonia could be considered in the appropriate clinical context. Signed by: Anand Zhang MD on 04/11/2020 11:55 PM Dictated By: ANAND ZHANG MD [id number] Transcribed By: LENI on 04/11/20 [id number] COPY TO: TIARA RUSSELL DO Novel Coronavirus 2019 Inhouse 2020-02-09 09:47:00 Test Item Novel Coronavirus 2019 Inhouse (test code = COVNONPUI) Negative Negative Positive results are indicative of the presence nhODOW-ZfH-2 RNA, clinical correlation with patient historyand other diagnostic information is necessary to determinepatient infection status. Positive results do not rule outbacterial infection or co-infection with other viruses. Negative results do not preclude SARS-CoV-2 infection andshould not be used as the sole basis for patient managementdecisions. Negative results must be combined with otherclinical observations, patient history, and epidemiologicalinformation. Detection of SARS-CoV-2 RNA may be affected bysample collection methods, storage conditions, and/or stageof infection. Viral RNA mutations, vaccinations, antiviraltherapeutics, antibiotics, chemotherapeutic orimmunosuppressant drugs have not been evaluated for effectson detection. Results are for the identification of SARS-CoV-2 RNA usingthe [employer] M2000 System under the FDA Emergency UseAuthorization. The testing is performed by personneltrained in the procedures for the [employer]big[employer] M2000 moleculardiagnostic SARS-CoV-2 assay in vitro. Testing Criteria: Pre-procedure ScreeningNovel Coronavirus 2019 Inhouse 2020-02-09 09:46:00* Test Item Value Reference Range Interpretation Comments Novel Coronavirus 2019 Inhouse (test code = COVNONPUI) Negative Negative Testing Criteria: Pre-procedure ScreeningCOMPREHENSIVE METABOLIC [id number] 13:51:00* Test Item Value Reference Range Interpretation Comments SODIUM (test code = NA) 134 mmol/L 137-145 L POTASSIUM (test code = K) 4.9 mmol/L 3.4-5.0 N CHLORIDE (test code = CL) 100 mmol/L 98-107 N CARBON DIOXIDE (test code = CO2) 24 mmol/L 22-30 N GLUCOSE (test code = GLU) 99 mg/dL 74-106 N BLOOD UREA NITROGEN (test code = BUN) 18 mg/dL 7-17 H GLOMERULAR FILTRATION RATE (test code = GFR) 67 >60 The estimated glomerular filtration rate is computed usingpatient race, age (>18), sex, and serum creatinine. If anyof the needed data elements are missing the Laboratory cannot compute an estimation of the glomerular filtration rate. CREATININE (test code = CREAT) 0.9 mg/dL 0.5-1.0 N TOTAL PROTEIN (test code = PROT) 7.1 g/dL 6.3-8.2 N ALBUMIN (test code = ALB) 4.3 g/dL 3.5-5.0 N CALCIUM (test code = CA) 9.7 mg/dL 8.4-10.2 N BILIRUBIN TOTAL (test code = BILT) 0.2 mg/dL 0.2-1.3 N BILIRUBIN CONJUGATED (test code = BILCON) 0 mg/dL 0-0.3 N ~~~~~~~~~~~~~~~~~~~~~~~~~~~~~~~~~~~~~~~~~~~~~~~~~~~~~~~~~~~~CONJUGATED BILIRUBIN IS THE REPLACEMENT ASSAY FOR DIRECTBILIRUBIN.~~~~~~~~~~~~~~~~~~~~~~~~~~~~~~~~~~~~~~~~~~~~~~~~~~~~~~~~~~~~ BILIRUBIN UNCONJUGATED (test code = BILUNC) 0 mg/dL 0-1.1 N SGOT/AST (test code = AST) 20 U/L 15-46 N SGPT/ALT (test code = ALT) 20 U/L 13-69 N ALKALINE PHOSPHATASE (test code = ALKP) 93 U/L 38-126 N PROTHROMBIN [id number] 13:43:00* Test Item Value Reference Range Interpretation Comments PROTHROMBIN TIME PATIENT (test code = PTP) 11.4 SECONDS 9.2-12.1 N INTERNATIONAL NORMAL RATIO (test code = INR) 1.0 The INR is to be used only for monitoring ORAL ANTICOAGULANTTHERAPY. Indication INR Value1. Prophylaxis/treatment of: Venous Thrombosis, Pulmonary Embolism 2.0 - 3.02. Prevention of systemic embolism from: Tissue heart valves 2.0 - 3.0 Acute myocardial infarction (to present systemic embolism)* 2.0 - 3.0 Valvular heart disease 2.0 - 3.0 Atrial fibrillation 2.0 - 3.03. Mechanical prosthetic valves (high risk) 2.5 - 3.5 * If oral anticoagulant therapy is elected to preventrecurrent myocardial infarction, an INR of 2.5-3.5 isrecommended, consistent with Food and Drug Administrationrecommendations. IS PATIENT ON ANTICOAGULANTS ? YESLIST ANTICOAGULANT/ANTI PLT MEDICATION: Cl opidogrel (Anti-PLT)THROMBOPLASTIN TIME [id number] 13:43:00* Test Item Value Reference Range Interpretation Comments THROMBOPLASTIN TIME PARTIAL (test code = PTT) 39.5 SECONDS 23.4-37. 0 H Therapeutic Range for Heparin EFFECTIVE 03/17/13 Heparin IU/mL aPTT Seconds0.3 64.30.7 88.8 IS PATIENT ON ANTICOAGULANTS ? YESLIST ANTICOAGULANT/ANTI PLT MEDICATION: Cl opidogrel (Anti-PLT)CBC W/AUTO [id number] 13:33:00* Test Item Value Reference Range Interpretation Comments WHITE BLOOD CELL (test code = WBC) 8.9 x10 3/uL 5.0-12.0 N RED BLOOD CELL (test code = RBC) 3.43 x10 6/uL 4.20-5.40 L HEMOGLOBIN (test code = HGB) 10.8 g/dL 12.0-16.0 L HEMATOCRIT (test code = HCT) 33.1 % 36.0-46.0 L MEAN CELL VOLUME (test code = MCV) 97 fL 81-99 N MEAN CELL HGB (test code = MCH) 31.5 pg 27-31 H MEAN CELL HGB CONCENTRATION (test code = MCHC) 32.6 g/dL 33-37 L RED CELL DISTRIBUTION WIDTH (test code = RDW) 13.7 % 11.5-15. 5 N PLATELET COUNT (test code = PLT) 376 x10 3/uL 130-400 N MEAN PLATELET VOLUME (test code = MPV) 8.8 fL 9.4-16.4 L NEUTROPHIL % (test code = NT%) 77.7 % 43-65 H IMMATURE GRANULOCYTE % (test code = IG%) 0.6 % 0.0-2.0 N LYMPHOCYTE % (test code = LY%) 13.5 % 20.5-45.5 L MONOCYTE % (test code = MO%) 5.7 % 5.5-11.7 N EOSINOPHIL % (test code = EO%) 1.8 % 0.9-2.9 N BASOPHIL % (test code = BA%) 0.7 % 0.2-1.0 N NUCLEATED RBC % (test code = NRBC%) 0.0 % 0-1.0 N NEUTROPHIL # (test code = NT#) 6.92 x10 3/uL 2.2-4.8 H IMMATURE GRANULOCYTE # (test code = IG#) 0.05 x10 3/uL 0-0.03 H LYMPHOCYTE # (test code = LY#) 1.20 x10 3/uL 1.3-2.9 L MONOCYTE # (test code = MO#) 0.51 x10 3/uL 0.3-0.8 N EOSINOPHIL # (test code = EO#) 0.16 x10 3/uL 0.0-0.2 N BASOPHIL # (test code = BA#) 0.06 x10 3/uL 0.0-0.1 N Bedside Hnmbfvd9768-63-61 13:44:00* Test Item Value Reference Range Interpretation Comments Bedside Glucose (test code = 21496-6) 104 70-120 Meter ID: [id number] [facility] HospitalDifferential Total Cells Ltchkma3958-39-76 09:08:00* Test Item Value Reference Range Interpretation Comments Differential Total Cells Counted (test code = Tatiana tial Total Cells Counted) 100 [facility] BudaNeutrophils % (Manual)2019-12-06 09:08:00 * Test Item Value Reference Range Interpretation Comments Neutrophils % (Manual) (test code = 68986-7) 92 40-74 H [facility] BudaLymphocytes % (Manual)2019-12-06 09:08:00 * Test Item Value Reference Range Interpretation Comments Lymphocytes % (Manual) (test code = 737-7) 5 19-48 L [facility] BudaMonocytes % (Manual)2019-12-06 09:08:00* Test Item Value Reference Range Interpretation Comments Monocytes % (Manual) (test code = 744-3) 3 3.4-9.0 L [facility] BudaPlatelet Qwbjnjrn3397-28-71 09:08:00* Test Item Value Reference Range Interpretation Comments Platelet Estimate (test code = 95934-7) ADEQUATE [facility] BudaPlatelet Morphology Gqxsawe2063-51-55 09:08:00* Test Item Value Reference Range Interpretation Comments Platelet Morphology Comment (test code = 79678-9) NORMAL [facility] BudaRed Cell Morphology Ydzdrus1862-83-01 09:08:00* Test Item Value Reference Range Interpretation Comments Red Cell Morphology Comment (test code = 6742-1) NORMAL [facility] Uljbz2729-02-17 05:32:00* Test Item Value Reference Range Interpretation Comments Sodium Level (test code = 2951-2) 134 136-145 L [facility] BudaPotassium Pipxi9312-40-36 05:32:00* Test Item Value Reference Range Interpretation Comments Potassium Level (test code = 2823-3) 5.0 3.5-5.1 [facility] BudaChloride Rtoaw2247-75-16 05:32:00* Test Item Value Reference Range Interpretation Comments Chloride Level (test code = 2075-0) 101 98-107 [facility] BudaCarbon Dioxide Rjcli6538-19-75 05:32:00* Test Item Value Reference Range Interpretation Comments Carbon Dioxide Level (test code = 2028-9) 26 -29 [facility] BudaAnion Pwj5647-65-96 05:32:00* Test Item Value Reference Range Interpretation Comments Anion Gap (test code = 87858-2) 12.0 8-16 [facility] BudaBlood Urea Liatjgfb5423-53-83 05:32:00* Test Item Value Reference Range Interpretation Comments Blood Urea Nitrogen (test code = 3094-0) 8 7-26 [facility] BudaCreatinine2020-03-30 05:32:00* Test Item Value Reference Range Interpretation Comments Creatinine (test code = 2160-0) 0.74 0.57-1.11 [facility] BudaBUN/Creatinine Epfse1299-26-63 05:32:00* Test Item Value Reference Range Interpretation Comments BUN/Creatinine Ratio (test code = 3097-3) 11 6-25 [facility] BudaEstimat Glomerular Filtration Rate 2019-12-06 05:32:00* Test Item Value Reference Range Interpretation Comments Estimat Glomerular Filtration Rate (test code = 843853950) > 60 >60 Ranges were taken from the National Kidney Disease Education Program and the [facility] Kidney Foundation literature.Reference ranges:60 or greater: Sbagsd35-64 ( for 3 consecutive months): Chronic kidney disease 15 or less: Kidney failureBaylor Scott & White Medical Center – BudaGlucose Tzpql7036-89-44 05:32:00* Test Item Value Reference Range Interpretation Comments Glucose Level (test code = ETX7777) 113 74-118 [facility] BudaCalcium Fkdqt1164-28-00 05:32:00* Test Item Value Reference Range Interpretation Comments Calcium Level (test code = 59216-0) 8.5 8.4-10.2 [facility] BudaProthrombin Gfea8444-12-37 05:30:00* Test Item Value Reference Range Interpretation Comments Prothrombin Time (test code = 5902-2) 12.7 11.9-14.5 [facility] BudaProthromb Time International Ratio 2019-12-06 05:30:00* Test Item Value Reference Range Interpretation Comments Prothromb Time International Ratio (test code = 6301-6) 0.90 Oral Anticoagulant Therapy INR Values:1. Low Intensity Therapy 1.5 - 2.02 . Moderate Intensity Therapy 2.0 - 3.03. High Intensity Therapy(1) 2.5 - 3. 54. High Intensity Therapy(2) 3.0 - 4.05. Panic Value INR > 5.0 [facility] BudaActivated Partial Thromboplast Time 2019-12-06 05:30:00* Test Item Value Reference Range Interpretation Comments Activated Partial Thromboplast Time (test code = 63244-3) 33.3 23.8-35.5 [facility] BudaWhite Blood Xydkd8124-25-69 05:22:00* Test Item Value Reference Range Interpretation Comments White Blood Count (test code = 6690-2) 6.67 4.8-10.8 [facility] BudaRed Blood Ilxvu5833-62-85 05:22:00* Test Item Value Reference Range Interpretation Comments Red Blood Count (test code = 789-8) 3.32 3.6-5.1 L [facility] BudaHemoglobin2020-03-30 05:22:00* Test Item Value Reference Range Interpretation Comments Hemoglobin (test code = 74890-6) 10.0 12.0-16.0 L [facility] BudaHematocrit2020-03-30 05:22:00* Test Item Value Reference Range Interpretation Comments Hematocrit (test code = 4544-3) 31.1 34.2-44.1 L [facility] BudaMean Corpuscular Garomw7298-39-71 05:22:00* Test Item Value Reference Range Interpretation Comments Mean Corpuscular Volume (test code = 787-2) 93.7 81-99 [facility] BudaMean Corpuscular Tmunqvsznx4200-41-66 05:22:00* Test Item Value Reference Range Interpretation Comments Mean Corpuscular Hemoglobin (test code = 785-6) 30.1 28-32 [facility] BudaMean Corpuscular Hemoglobin Concent 2019-12-06 05:22:00* Test Item Value Reference Range Interpretation Comments Mean Corpuscular Hemoglobin Concent (test code = 786-4) 32.2 31-35 [facility] BudaRed Cell Distribution Sektb7684-11-88 05:22:00* Test Item Value Reference Range Interpretation Comments Red Cell Distribution Width (test code = 55700-4) 12.7 11.7 -14.4 [facility] BudaPlatelet Syjnq3393-21-73 05:22:00* Test Item Value Reference Range Interpretation Comments Platelet Count (test code = 777-3) 255 140-360 [facility] BudaNeutrophils (%) (Auto)2019-12-06 05:22:00 * Test Item Value Reference Range Interpretation Comments Neutrophils (%) (Auto) (test code = 71796-5) 87.0 38.7-80.0 H [facility] BudaLymphocytes (%) (Auto)2019-12-06 05:22:00 * Test Item Value Reference Range Interpretation Comments Lymphocytes (%) (Auto) (test code = 736-9) 7.8 18.0-39.1 L [facility] BudaMonocytes (%) (Auto)2019-12-06 05:22:00* Test Item Value Reference Range Interpretation Comments Monocytes (%) (Auto) (test code = 5905-5) 3.0 4.4-11.3 L [facility] BudaEosinophils (%) (Auto)2019-12-06 05:22:00 * Test Item Value Reference Range Interpretation Comments Eosinophils (%) (Auto) (test code = 713-8) 1.8 0.0-6.0 [facility] BudaBasophils (%) (Auto)2019-12-06 05:22:00* Test Item Value Reference Range Interpretation Comments Basophils (%) (Auto) (test code = 706-2) 0.1 0.0-1.0 [facility] BudaIM GRANULOCYTES %2019-12-06 05:22:00* Test Item Value Reference Range Interpretation Comments IM GRANULOCYTES % (test code = IM GRANULOCYTES %) 0.3 0.0- 1.0 [facility] BudaNeutrophils # (Auto)2019-12-06 05:22:00* Test Item Value Reference Range Interpretation Comments Neutrophils # (Auto) (test code = 751-8) 5.8 2.1-6.9 [facility] BudaLymphocytes # (Auto)2019-12-06 05:22:00* Test Item Value Reference Range Interpretation Comments Lymphocytes # (Auto) (test code = 23628-5) 0.5 1.0-3.2 L [facility] BudaMonocytes # (Auto)2019-12-06 05:22:00* Test Item Value Reference Range Interpretation Comments Monocytes # (Auto) (test code = 742-7) 0.2 0.2-0.8 [facility] BudaEosinophils # (Auto)2019-12-06 05:22:00* Test Item Value Reference Range Interpretation Comments Eosinophils # (Auto) (test code = 711-2) 0.1 0.0-0.4 [facility] BudaBasophils # (Auto)2019-12-06 05:22:00* Test Item Value Reference Range Interpretation Comments Basophils # (Auto) (test code = 704-7) 0.0 0.0-0.1 [facility] BudaAbsolute Immature Granulocyte (auto 2019-12-06 05:22:00* Test Item Value Reference Range Interpretation Comments Absolute Immature Granulocyte (auto (london t code = Absolute Immature Granulocyte (auto) 0.02 0-0.1 [facility] BudaTroponin U6301-77-99 20:00:00* Test Item Value Reference Range Interpretation Comments Troponin I (test code = JHT1440) 0.074 0-0.300 [facility] BudaC-Reactive Lfsgwmg5069-59-91 18:33:00* Test Item Value Reference Range Interpretation Comments C-Reactive Protein (test code = 1988-5) 4 0-10 Performed at: - [facility] [id number] Director: Pepe Kennedy MD, Phone: [phone] Scott & White Medical Center – BudaCHEST SINGLE (PORTABLE)2019-12-05 08:46:00 [place] [address] Patient Name: KATIANA GOLDMAN MR #: [id number] : 1955 Age/Sex: 64/F Req #: [id number] Adm Physician: RUSTY ALAMO MD Ordered by: CHUN MORE MD Report #: [id number] Location: MED/SURG2 Room/Bed: [facility] Procedure: [id number] DX/CHEST SINGLE (PORTABLE) Exam Date: 12/05/19 E xam Time: 0615 REPORT STATUS: Lupe d EXAMINATION: CHEST SINGLE (PORTABLE) INDICATION: Shortness of delmar ath COMPARISON: Chest radiograph 12/03/2019 FINDINGS: LINES/T UBES:EKG leads overlie the right chest. LUNGS:The lungs are hyperinflated. Bilateral emphysematous changes. No focal consolidation or pulmonary edema. Co arsening of the pulmonary interstitium in the lower lobes. Right basilar subse gmental atelectasis. PLEURA:No pleural effusion or pneumothorax. MEDIA STINUM:The cardiomediastinal silhouette appears normal in size and shape. B ONES/SOFT TISSUES:No acute osseous injury. ABDOMEN:No free air under the di aphragm. Status post cholecystectomy. IMPRESSION: Mild chronic inters titial changes bilaterally. No focal consolidation. Signed by: Dr. Sherlyn Roger M.D. on 12/05/2019 8:48 AM Dictated By: MELODY CERNA MD, MD 7 Transcribed By: LENI on 12/05/19847 COPY TO: CHUN MORE MD Total Evtcedclr6650-72-07 03:56:00* Test Item Value Reference Range Interpretation Comments Total Bilirubin (test code = 1975-2) 0.1 0.2-1.2 L [facility] BudaAspartate Amino Transf (AST/SGOT) 2019-12-05 03:56:00* Test Item Value Reference Range Interpretation Comments Aspartate Amino Transf (AST/SGOT) (test code = Aspartate Amino Transf (AST/SGOT)) 20 5-34 [facility] BudaAlanine Aminotransferase (ALT/SGPT) 2019-12-05 03:56:00* Test Item Value Reference Range Interpretation Comments Alanine Aminotransferase (ALT/SGPT) (test code = 1742-6) 14 0-55 [facility] BudaTotal Vhyxetr9787-60-02 03:56:00* Test Item Value Reference Range Interpretation Comments Total Protein (test code = 2885-2) 5.1 6.5-8.1 L [facility] BudaAlbumin2020-03-29 03:56:00* Test Item Value Reference Range Interpretation Comments Albumin (test code = 1751-7) 2.9 3.5-5.0 L [facility] BudaGlobulin2020-03-29 03:56:00* Test Item Value Reference Range Interpretation Comments Globulin (test code = 82060-6) 2.2 2.3-3.5 L [facility] BudaAlbumin/Globulin Bdzgt5069-50-48 03:56:00 * Test Item Value Reference Range Interpretation Comments Albumin/Globulin Ratio (test code = 1759-0) 1.3 0.8-2.0 [facility] BudaAlkaline Ejavrtkaiqv0450-29-86 03:56:00* Test Item Value Reference Range Interpretation Comments Alkaline Phosphatase (test code = 6768-6) 60 40-150 [facility] BudaB-Type Natriuretic Derjsqv1551-73-35 13:09:00* Test Item Value Reference Range Interpretation Comments B-Type Natriuretic Peptide (test code = 34579-5) 200.7 0-100 H [facility] BudaInfluenza Virus Types A,B Antigen 2019-12-04 12:07:00* Test Item Value Reference Range Interpretation Comments Influenza Virus Types A,B Antigen (test code = 49297-7) NEGATIVE NEGATIVE [facility] BudaFerritin2020-03-27 18:08:00* Test Item Value Reference Range Interpretation Comments Ferritin (test code = 2276-4) 264.04 4.63-204.00 H [facility] BudaCreatine Kinase HZ1013-64-18 17:16:00* Test Item Value Reference Range Interpretation Comments Creatine Kinase MB (test code = 28780-8) 3.50 0-5.0 [facility] BudaCreatine Houchs3861-14-17 17:03:00* Test Item Value Reference Range Interpretation Comments Creatine Kinase (test code = 2157-6) 75 29-168 [facility] BudaCHEST 2 KINSL7548-69-51 15:21:00 [facility] [address] [place] [address] Patient Name: KATIANA GOLDMAN MR #: [id number] : 11/1955 Age/Sex: 64/F Req #: [id number] Adm Physician: RUSTY ALAMO MD Ordered by: DARNELL VERMA MD Report #: [id number] Location: MED/SURG2 Room/Bed: [facility] Procedu re: [id number] DX/CHEST 2 VIEWS Exam Date: 12/03/19 E xam Time: 1503 REPORT STATUS: Lupe d EXAMINATION: CHEST 2 VIEWS INDICATION: Shortness of breath C OMPARISON: Chest radiograph 11/20/2019 FINDINGS: LINES/TUBES:EKG l graciela overlie the chest. LUNGS:The lungs are hyperinflated. Bilateral emphys ematous changes. No focal consolidation or pulmonary edema. Right basilar subs egmental atelectasis. PLEURA:No pleural effusion or pneumothorax. MEDI ASTINUM:The cardiomediastinal silhouette appears normal in size and shape. BONES/SOFT TISSUES:No acute osseous injury. ABDOMEN:No free air under the d iaphragm. Status post cholecystectomy. IMPRESSION: Hyperinflated lung s and emphysematous changes. No focal pneumonia or pulmonary edema. Right basilar subsegmental atelectasis. Signed by: Amy Branch MD on 12/03/2019 3 :25 PM Dictated By: AMY BRANCH MD 152 Transcribed By: LENI on 12/03/19 1525 COPY TO: DARNELL VEGA MD Urine [id number] 02:15:00* Test Item Value Reference Range Interpretation Comments Urine WBC (test code = 5821-4) 11-20 0-5 H [facility] BudaUrine BBR8553-51-79 02:15:00* Test Item Value Reference Range Interpretation Comments Urine RBC (test code = 20405-2) 6-10 0-5 H [facility] BudaUrine Eqapdyti1864-57-98 02:15:00* Test Item Value Reference Range Interpretation Comments Urine Bacteria (test code = 53828-1) MODERATE NONE H [facility] BudaUrine Epithelial Hfjat2169-81-79 02:15:00 * Test Item Value Reference Range Interpretation Comments Urine Epithelial Cells (test code = 43151-8) FEW NONE [facility] BudaUrine Transitional Epithelial Cells 2019-12-03 02:15:00* Test Item Value Reference Range Interpretation Comments Urine Transitional Epithelial Cells (test code = 8249-5) FEW NONE H [facility] BudaUrine Renal Epithelial Rsfje8581-60-97 02:15:00* Test Item Value Reference Range Interpretation Comments Urine Renal Epithelial Cells (test code = 40876-1) FEW NON E H [facility] BudaUrine Loywh3615-24-66 02:11:00* Test Item Value Reference Range Interpretation Comments Urine Color (test code = 5778-6) YELLOW YELLOW [facility] BudaUrine Uuvxdzy4590-32-28 02:11:00* Test Item Value Reference Range Interpretation Comments Urine Clarity (test code = 01546-2) CLEAR CLEAR [facility] Specific Hhohopo9006-81-52 02:11:00 * Test Item Value Reference Range Interpretation Comments Urine Specific [place] (test code = 5811-5) 1.020 1.010-1.02 5 [facility] BudaUrine bP5755-81-64 02:11:00* Test Item Value Reference Range Interpretation Comments Urine pH (test code = 46489-8) 6.5 5-7 [facility] BudaUrine Leukocyte Fhyqkkys9057-35-45 02:11:00* Test Item Value Reference Range Interpretation Comments Urine Leukocyte Esterase (test code = 5799-2) NEGATIVE NEGATIVE [facility] BudaUrine Cjrdwmo7439-50-59 02:11:00* Test Item Value Reference Range Interpretation Comments Urine Nitrite (test code = 26496-5) NEGATIVE NEGATIVE [facility] BudaUrine Vkauqlb8672-79-41 02:11:00* Test Item Value Reference Range Interpretation Comments Urine Protein (test code = 5804-0) NEGATIVE NEGATIVE [facility] BudaUrine Glucose (UA)2019-12-03 02:11:00* Test Item Value Reference Range Interpretation Comments Urine Glucose (UA) (test code = 2349-9) NEGATIVE NEGATIVE [facility] BudaUrine Ubgskjf3753-71-57 02:11:00* Test Item Value Reference Range Interpretation Comments Urine Ketones (test code = 88376-9) NEGATIVE NEGATIVE [facility] BudaUrine Siyuwrpatkfb9019-68-40 02:11:00* Test Item Value Reference Range Interpretation Comments Urine Urobilinogen (test code = 02634-6) 0.2 0.2-1 [facility] BudaUrine Aburqzesx5867-24-78 02:11:00* Test Item Value Reference Range Interpretation Comments Urine Bilirubin (test code = 1978-6) NEGATIVE NEGATIVE [facility] BudaUrine Qsdzf7246-71-59 02:11:00* Test Item Value Reference Range Interpretation Comments Urine Blood (test code = 75517-1) NEGATIVE NEGATIVE [facility] BudaCT ABDOMEN/PELVIS KJ6389-02-11 23:40:00 [place] [address] Patient Name: KATIANA GOLDMAN MR #: [id number] : 11/1955 Age/Sex: 64/F Req #: [id number] Adm Physician: Ordered by: JAZ HONEYCUTT MD Report #: [id number] Location: ER Room/Bed: Procedure: [id number] CT/CT ABDOMEN/PELVIS WO Exam Date: 12/02/19 Exam Time: 5 REPORT STATUS: Sig arabella EXAM: CT Abdomen and Pelvis WITHOUT contrast INDICATION: Back pa in, nausea, vomiting COMPARISON: None. TECHNIQUE: Abdomen and pelvis were s canned utilizing a multidetector helical scanner from the lung base to the pub ic symphysis without administration of IV contrast. Absence of intravenous con trast decreases sensitivity for detection of focal lesions and vascular pathol ogy. Coronal and sagittal reformations were obtained. Routine protocol was per formed. IV CONTRAST: None ORAL CONTRAST: Gastrografin COMPLICATIONS: None RADIATION DOSE: Total DLP: 178 mGy*cm Estimated effective dose: (DLP x 0.015 x size factor) mSv CTDIvol has been reviewed. It is below the limits set by the Radiation Protocol Committee (RPC). Dose modulation, iterative reconstruction, and/or weight based adj ustment of the mA/kV was utilized to reduce the radiation dose to as low as re asonably achievable. FINDINGS: LINES and TUBES: None. LOWER TH ORAX: Emphysematous changes in the lower lungs. HEPATOBILIARY: No foc al hepatic lesions. No biliary ductal dilation. GALLBLADDER: There are cho lecystectomy clips. SPLEEN: No splenomegaly. PANCREAS: No focal masses or ductal dilatation. ADRENALS: No adrenal nodules KIDNEY S/URETERS: No hydronephrosis. No cystic or solid mass lesions. No stones. GI TRACT: No abnormal distention, wall thickening, or evidence of bowel obs truction. Appendix has been removed per history. PELVIC ORGANS/BLADDE R: Hysterectomy. No adnexal masses. Urinary bladder unremarkable. LYMPH N ODES: No lymphadenopathy. VESSELS: Aortobiiliac bypass grafts. Dense calcif ications in the aorta and ho-chunk iliac arteries. PERITONEUM / RETROPERITO NEUM: No free air or fluid. BONES: Subtle L1 vertebral body superior endpla te compression fracture. Degenerative changes in the spine hips and pelvis. Lo w bone mineral density. SOFT TISSUES: Benign calcified gluteal subcutaneous granulomas.. IMPRESSION: 1. Mild L1 vertebral body supe rior endplate compression fracture. Low bone mineral density. 2. Moderat e colonic stool burden, correlate for constipation. 3. Pulmonary emphysema . Signed by: Jose Payne DO on 12/02/2019 11:46 PM Dictated By: Anna PAYNE DO 46 Transcribed By: LENI on 12/02/19 3837 COPY TO: JAZ HONEYCUTT MD Amylase Cmblv7604-43-19 22:04:00* Test Item Value Reference Range Interpretation Comments Amylase Level (test code = 1798-8) 48 25-125 [facility] BudaLipase2020-03-26 22:04:00* Test Item Value Reference Range Interpretation Comments Lipase (test code = 3040-3) 7 8-78 L [facility] BudaBlood Wjvdyor8162-87-70 14:31:00* Test Item Value Reference Range Interpretation Comments Blood Culture (test code = 91872561) NO GROWTH AFTER 5 DAYS, FINAL REPORT [facility]odium Fgfhb2783-12-32 06:19:00* Test Item Value Reference Range Interpretation Comments Sodium Level (test code = 2951-2) 136 136-145 [facility] [facility]udaPotassium Lxqxz9143-76-70 06:19:00* Test Item Value Reference Range Interpretation Comments Potassium Level (test code = 2823-3) 4.1 3.5-5.1 [facility] BudaChloride Rodwo3407-97-42 06:19:00* Test Item Value Reference Range Interpretation Comments Chloride Level (test code = 2075-0) 110 98-107 H [facility] BudaCarbon Dioxide Tfmwc9243-13-19 06:19:00* Test Item Value Reference Range Interpretation Comments Carbon Dioxide Level (test code = 2028-9) 23 22-29 [facility] BudaAnion Rfs3318-17-06 06:19:00* Test Item Value Reference Range Interpretation Comments Anion Gap (test code = 08571-0) 7.1 8-16 L [facility] BudaBlood Urea Lilejcgw0045-77-08 06:19:00* Test Item Value Reference Range Interpretation Comments Blood Urea Nitrogen (test code = 3094-0) 8 7-26 [facility] BudaCreatinine2020-03-17 06:19:00* Test Item Value Reference Range Interpretation Comments Creatinine (test code = 2160-0) 0.63 0.57-1.11 [facility] BudaBUN/Creatinine Pizhy2634-28-22 06:19:00* Test Item Value Reference Range Interpretation Comments BUN/Creatinine Ratio (test code = 3097-3) 13 6-25 [facility] BudaEstimat Glomerular Filtration Rate 2019-11-23 06:19:00* Test Item Value Reference Range Interpretation Comments Estimat Glomerular Filtration Rate (test code = 249584039) > 60 >60 Ranges were taken from the National Kidney Disease Education Program and the [facility] literature.Reference ranges:60 or greater: Kxzdhw05-11 ( for 3 consecutive months): Chronic kidney disease 15 or less: Kidney failureBaylor Scott & [facility] – BudaGlucose Zezcy3477-38-46 06:19:00* Test Item Value Reference Range Interpretation Comments Glucose Level (test code = VXG8766) 78 74-118 [facility] BudaCalcium Vymee0375-24-67 06:19:00* Test Item Value Reference Range Interpretation Comments Calcium Level (test code = 93641-7) 8.4 8.4-10.2 [facility] BudaWhite Blood Hsohd1686-15-83 05:58:00* Test Item Value Reference Range Interpretation Comments White Blood Count (test code = 6690-2) 8.89 4.8-10.8 [facility] BudaRed Blood Jksoy6942-00-73 05:58:00* Test Item Value Reference Range Interpretation Comments Red Blood Count (test code = 789-8) 3.44 3.6-5.1 L [facility] BudaHemoglobin2020-03-17 05:58:00* Test Item Value Reference Range Interpretation Comments Hemoglobin (test code = 14149-9) 10.3 12.0-16.0 L [facility] BudaHematocrit2020-03-17 05:58:00* Test Item Value Reference Range Interpretation Comments Hematocrit (test code = 4544-3) 32.1 34.2-44.1 L [facility] BudaMean Corpuscular Ldmoqm9842-07-68 05:58:00* Test Item Value Reference Range Interpretation Comments Mean Corpuscular Volume (test code = 787-2) 93.3 81-99 [facility] BudaMean Corpuscular Mqhnmuirhz2611-88-52 05:58:00* Test Item Value Reference Range Interpretation Comments Mean Corpuscular Hemoglobin (test code = 785-6) 29.9 28-32 [facility] BudaMean Corpuscular Hemoglobin Concent 2019-11-23 05:58:00* Test Item Value Reference Range Interpretation Comments Mean Corpuscular Hemoglobin Concent (test code = 786-4) 32.1 31-35 [facility] BudaRed Cell Distribution Kzlix1731-88-59 05:58:00* Test Item Value Reference Range Interpretation Comments Red Cell Distribution Width (test code = 93958-3) 13.5 11.7 -14.4 [facility] BudaPlatelet Mtnyn6452-46-34 05:58:00* Test Item Value Reference Range Interpretation Comments Platelet Count (test code = 777-3) 371 140-360 H [facility] BudaNeutrophils (%) (Auto)2019-11-23 05:58:00 * Test Item Value Reference Range Interpretation Comments Neutrophils (%) (Auto) (test code = 16189-8) 64.4 38.7-80.0 [facility] BudaLymphocytes (%) (Auto)2019-11-23 05:58:00 * Test Item Value Reference Range Interpretation Comments Lymphocytes (%) (Auto) (test code = 736-9) 22.8 18.0-39.1 [facility] BudaMonocytes (%) (Auto)2019-11-23 05:58:00* Test Item Value Reference Range Interpretation Comments Monocytes (%) (Auto) (test code = 5905-5) 8.0 4.4-11.3 [facility] BudaEosinophils (%) (Auto)2019-11-23 05:58:00 * Test Item Value Reference Range Interpretation Comments Eosinophils (%) (Auto) (test code = 713-8) 3.0 0.0-6.0 [facility] BudaBasophils (%) (Auto)2019-11-23 05:58:00* Test Item Value Reference Range Interpretation Comments Basophils (%) (Auto) (test code = 706-2) 1.1 0.0-1.0 H [facility] BudaIM GRANULOCYTES %2019-11-23 05:58:00* Test Item Value Reference Range Interpretation Comments IM GRANULOCYTES % (test code = IM GRANULOCYTES %) 0.7 0.0- 1.0 [facility] BudaNeutrophils # (Auto)2019-11-23 05:58:00* Test Item Value Reference Range Interpretation Comments Neutrophils # (Auto) (test code = 751-8) 5.7 2.1-6.9 [facility] BudaLymphocytes # (Auto)2019-11-23 05:58:00* Test Item Value Reference Range Interpretation Comments Lymphocytes # (Auto) (test code = 43801-3) 2.0 1.0-3.2 [facility] BudaMonocytes # (Auto)2019-11-23 05:58:00* Test Item Value Reference Range Interpretation Comments Monocytes # (Auto) (test code = 742-7) 0.7 0.2-0.8 [facility] BudaEosinophils # (Auto)2019-11-23 05:58:00* Test Item Value Reference Range Interpretation Comments Eosinophils # (Auto) (test code = 711-2) 0.3 0.0-0.4 [facility] BudaBasophils # (Auto)2019-11-23 05:58:00* Test Item Value Reference Range Interpretation Comments Basophils # (Auto) (test code = 704-7) 0.1 0.0-0.1 [facility] BudaAbsolute Immature Granulocyte (auto 2019-11-23 05:58:00* Test Item Value Reference Range Interpretation Comments Absolute Immature Granulocyte (auto (l[place] t code = Absolute Immature Granulocyte (auto) 0.06 0-0.1 [facility] BudaBedside Kvfrhud3590-29-85 19:45:00* Test Item Value Reference Range Interpretation Comments Bedside Glucose (test code = 75639-2) 104 70-120 Meter ID: [id number] Scott & [facility] BudaBlood Culture 2019-11-22 14:31:00* Test Item Value Reference Range Interpretation Comments Blood Culture (test code = 74261374) NO GROWTH AFTER 72 HOURS [facility] BudaTotal Jnjkyckrs8673-51-92 06:57:00* Test Item Value Reference Range Interpretation Comments Total Bilirubin (test code = 1975-2) 0.2 0.2-1.2 [facility] BudaAspartate Amino Transf (AST/SGOT) 2019-11-21 06:57:00* Test Item Value Reference Range Interpretation Comments Aspartate Amino Transf (AST/SGOT) (test code = Aspartate Amino Transf (AST/SGOT)) 8 5-34 [facility] BudaAlanine Aminotransferase (ALT/SGPT) 2019-11-21 06:57:00* Test Item Value Reference Range Interpretation Comments Alanine Aminotransferase (ALT/SGPT) (test code = 1742-6) 9 0-55 [facility] BudaTotal Hbtbfrm3298-72-09 06:57:00* Test Item Value Reference Range Interpretation Comments Total Protein (test code = 2885-2) 6.2 6.5-8.1 L [facility] BudaAlbumin2020-03-15 06:57:00* Test Item Value Reference Range Interpretation Comments Albumin (test code = 1751-7) 3.1 3.5-5.0 L [facility] BudaGlobulin2020-03-15 06:57:00* Test Item Value Reference Range Interpretation Comments Globulin (test code = 18058-3) 3.1 2.3-3.5 [facility] BudaAlbumin/Globulin Sdkmy2906-98-77 06:57:00 * Test Item Value Reference Range Interpretation Comments Albumin/Globulin Ratio (test code = 1759-0) 1.0 0.8-2.0 [facility] BudaAlkaline Qzebjpottjr1996-08-74 06:57:00* Test Item Value Reference Range Interpretation Comments Alkaline Phosphatase (test code = 6768-6) 78 40-150 [facility] BudaCreatine Kinase BS6647-71-48 15:15:00* Test Item Value Reference Range Interpretation Comments Creatine Kinase MB (test code = 26587-2) 3.20 0-5.0 [facility] BudaTroponin R4868-75-50 15:15:00* Test Item Value Reference Range Interpretation Comments Troponin I (test code = XUQ5810) 0.015 0-0.300 [facility] BudaCreatine Mlkckk8830-55-78 15:03:00* Test Item Value Reference Range Interpretation Comments Creatine Kinase (test code = 2157-6) 32 29-168 [facility] BudaCHEST SINGLE (PORTABLE)2019-11-20 07:27:00 [facility] [address] [place] [address] Patient Name: KATIANA GOLDMAN MR #: [id number] : 1955 Age/Sex: 64/F Req #: [id number] Adm Physician: RUSTY ALAMO MD Ordered by: TELLY PAGE NP Report #: [id number] Location: [facility] Room/Bed: [facility] Procedure: 0314-000 5 DX/CHEST SINGLE (PORTABLE) Exam Date: 11/20/19 Leonora Time: 0610 REPORT STATUS: Signed Examination: Single AP view of the chest. COMPARISON: Portable chest 11/06 INDICATION: Flulike symptoms IMPRESSION: 1. Lines an d Tubes: None 2. Lungs are grossly clear. No consolidation or effusion. 3. Cardiomediastinal silhouette is normal. Pulmonary vasculature is normal. 4. No acute bony abnormalities. Signed by: Dr. Hussein Brown M.D. on 7:28 AM Dictated By: HUSSEIN BROWN MD 7 Transcribed By: LENI on 11/20/19727 COPY TO: TELLY PAGE NP Urine [id number] 19:50:00* Test Item Value Reference Range Interpretation Comments Urine WBC (test code = 5821-4) 11-20 0-5 H [facility] BudaUrine RRH9766-31-26 19:50:00* Test Item Value Reference Range Interpretation Comments Urine RBC (test code = 94374-0) 6-10 0-5 H [facility] BudaUrine Mjatugec7748-29-29 19:50:00* Test Item Value Reference Range Interpretation Comments Urine Bacteria (test code = 30442-8) MANY NONE H [facility] BudaUrine Epithelial Wghsb1616-17-74 19:50:00 * Test Item Value Reference Range Interpretation Comments Urine Epithelial Cells (test code = 67486-7) FEW NONE [facility] BudaUrine Zcaog2954-04-04 19:40:00* Test Item Value Reference Range Interpretation Comments Urine Color (test code = 5778-6) YELLOW YELLOW [facility] BudaUrine Arcewdw2156-75-08 19:40:00* Test Item Value Reference Range Interpretation Comments Urine Clarity (test code = 06922-3) SL CLOUDY CLEAR [facility] BudaUrine Specific Xdvmnfy0628-44-23 19:40:00 * Test Item Value Reference Range Interpretation Comments Urine Specific [place] (test code = 5811-5) 1.020 1.010-1.02 5 [facility] BudaUrine vG9767-55-25 19:40:00* Test Item Value Reference Range Interpretation Comments Urine pH (test code = 96641-0) 6 5-7 [facility] BudaUrine Leukocyte Lcbrrtbv3880-60-15 19:40:00* Test Item Value Reference Range Interpretation Comments Urine Leukocyte Esterase (test code = 5799-2) LARGE NEGATIVE [facility] BudaUrine Saqevre1452-23-38 19:40:00* Test Item Value Reference Range Interpretation Comments Urine Nitrite (test code = 67054-6) NEGATIVE NEGATIVE [facility] BudaUrine Zdxjcmq0998-98-85 19:40:00* Test Item Value Reference Range Interpretation Comments Urine Protein (test code = 5804-0) 1+ NEGATIVE H [facility] BudaUrine Glucose (UA)2019-11-19 19:40:00* Test Item Value Reference Range Interpretation Comments Urine Glucose (UA) (test code = 2349-9) NEGATIVE NEGATIVE [facility] BudaUrine Yoyaqxm9659-20-95 19:40:00* Test Item Value Reference Range Interpretation Comments Urine Ketones (test code = 70432-6) NEGATIVE NEGATIVE [facility] BudaUrine Xbhuutlkfdxk0051-55-88 19:40:00* Test Item Value Reference Range Interpretation Comments Urine Urobilinogen (test code = 06809-7) 0.2 0.2-1 [facility] BudaUrine Sshcjgonr9491-61-52 19:40:00* Test Item Value Reference Range Interpretation Comments Urine Bilirubin (test code = 1978-6) NEGATIVE NEGATIVE [facility] BudaUrine Zlocd9439-14-60 19:40:00* Test Item Value Reference Range Interpretation Comments Urine Blood (test code = 49782-5) MODERATE NEGATIVE [facility] BudaLactic Acid Vkqoa3973-32-25 15:11:00* Test Item Value Reference Range Interpretation Comments Lactic Acid Level (test code = Lactic Acid Level) 1.7 0.5- 2.0 [facility] BudaLactic Acid Bmwsx6039-75-35 15:11:00* Test Item Value Reference Range Interpretation Comments Lactic Acid Level (test code = Lactic Acid Level) 1.7 0.5- 2.0 [facility] BudaCHEST SINGLE (PORTABLE)2019-11-19 14:31:00 [facility] [address] [place] [address] Patient Name: KATIANA GOLDMAN MR #: [id number] : 1955 Age/Sex: 64/F Req #: [id number] Adm Physician: Ordered by: TELLY PAGE NP Report #: [id number] Location: ER Room/Bed: Procedure: [id number] DX/CHEST SINGLE (PORTABLE) Exam Date: 11/19/19 Exam Time: 1424 REPORT STATUS: Signed EXAMINATION: CHEST SINGLE (PORTABLE) INDICATION: Shortness of breath, vomiting COMPARISON: Chest radiograph 04/12/2018 FINDINGS: LI VIRGILIO/TUBES:EKG leads overlie the chest. LUNGS:The lungs are well-inflated. N o focal consolidation or pulmonary edema. PLEURA:No pleural effusion or pne umothorax. MEDIASTINUM:The cardiomediastinal silhouette appears normal in s ize and shape. Atherosclerotic calcifications of the thoracic aorta. BONE S/SOFT TISSUES:No acute osseous injury. ABDOMEN:No free air under the diaph ragm. IMPRESSION: No focal pneumonia or pulmonary edema. Signed by: Amy Branch MD on 11/19/2019 2:32 PM Dictated By: AMY BRANCH MD Elect ronically Signed By: AMY BRANCH MD on 11/19/191431 Transcribed By: LENI on 11/19/191431 COPY TO: TELLY PAGE NP Prothrombin Time 2019-11-19 14:01:00* Test Item Value Reference Range Interpretation Comments Prothrombin Time (test code = 5902-2) 13.0 11.9-14.5 [facility] BudaProthromb Time International Ratio 2019-11-19 14:01:00* Test Item Value Reference Range Interpretation Comments Prothromb Time International Ratio (test code = 6301-6) 0.93 Oral Anticoagulant Therapy INR Values:1. Low Intensity Therapy 1.5 - 2.02 . Moderate Intensity Therapy 2.0 - 3.03. High Intensity Therapy(1) 2.5 - 3. 54. High Intensity Therapy(2) 3.0 - 4.05. Panic Value INR > 5.0 [facility] BudaActivated Partial Thromboplast Time 2019-11-19 14:01:00* Test Item Value Reference Range Interpretation Comments Activated Partial Thromboplast Time (test code = 07392-5) 36.5 23.8-35.5 H [facility] BudaD-Dimer Quantitative (PE/DVT)2019-11-19 14:01:00* Test Item Value Reference Range Interpretation Comments D-Dimer Quantitative (PE/DVT) (test code = 36841-7) 0.53 0. 00-0.45 H As with all in vitro diagnostic tests, the test results should be interpreted by the physician in conjunction with clinical findings and other test results.Test results are reported in NEW D-dimer units(ug/mLFEU).[facility] BudaD-Dimer Quantitative (PE/DVT)2019-11-19 14:01:00* Test Item Value Reference Range Interpretation Comments D-Dimer Quantitative (PE/DVT) (test code = 08045-2) 0.53 0. 00-0.45 H As with all in vitro diagnostic tests, the test results should be interpreted by the physician in conjunction with clinical findings and other test results.Test results are reported in NEW D-dimer units(ug/mLFEU).[facility] BudaInfluenza Virus Types A,B Nxpotjz5632-62-13 13:43:00* Test Item Value Reference Range Interpretation Comments Influenza Virus Types A,B Antigen (test code = 05247-2) NEGATIVE NEGATIVE [facility] BudaGroup A Streptococcus Avkxrd6232-60-80 13:37:00* Test Item Value Reference Range Interpretation Comments Group A Streptococcus Screen (test code = 86862-9) NEGATIVE NEG ATIVE [facility] BudaGroup A Streptococcus Cwvhla4660-36-93 13:37:00* Test Item Value Reference Range Interpretation Comments Group A Streptococcus Screen (test code = 28425-0) NEGATIVE NEG ATIVE [facility]- CTA ABD AORTA IF LWEX [id number] 22:14:00 Name: KATIANA GOLDMAN [facility] : 1955 Age/S: 63 / F [address] [facility] Unit #: [id number] Loc: [place] [address] Phys: Salo Lezama MD Acct: [id number] Dis Date: Status: REG CLI PHONE #: [phone] Exam Date: 10/04/2019922 FAX #: [phone] Reason: CLAUDICATION EXAMS: CPT CODE: [id number] [place] [address] EXAM: CT angiography of the abdomen, pelvis and the lower extremities; INFORMATION: Peripheral vascular disease; claudication; TECHNIQUE AND FINDINGS: CT dose reduction protocol; Helical scans were obtained through the abdomen, the pelvis and the lower extremities during intravenous infusion of contrast material. Multiple curvilinear reconstructions were obtained. 3-D angiographic studies were generated on an independent workstation, using volume rendering and maximum intensity projection algorithms. Axial images were displayed at 3.75 mm slice thickness. Extensive calcifications of the abdominal aorta and iliac arteries. Celiac artery, SMA and both renal arteries are patent and without significant stenosis. The LARS is not opacified. There is status post aorto-biiliac bypass with the graft anastomosed to the external iliac arteries. The bypass graft is patent and the external iliac arteries are patent. Right leg: The right common femoral, profunda femoris, superficial femoral and popliteal arteries are patent and without significant stenosis; There is poor infrapopliteal runoff. The dominant runoff vessel is the right anterior tibial artery which shows significant stenosis but continues into a patent, small caliber dorsalis pedis artery. Intermittent occlusions and reconstitutions of the peroneal and posterior tibial arteries with opacification the proximal portion of a small caliber plantar pedis artery. Left leg: The left common femoral, profunda femoris, superficial femoral and popliteal arteries are patent. An eccentric calcified p laque is seen in the left common femoral artery resulting in a 50% stenosi s. Otherwise this vessel show no significant stenosis. Similar to th e right side, the left anterior tibial artery is the dominant vessel. It s hows several stenosis but there is opacification of a small caliber dorsal is pedis artery. Intermittent occlusions and stenoses of the left posterio r tibial and peroneal arteries. The proximal portion of the plantar pedis artery is opacified. PAGE 1 Signed Repo rt (CONTINUED) Name: KATIANA GOLDMAN [facility] : 1955 Age/S: 63 / F [address] Unit #: [id number] Loc: [place] [place] 7 [address] Phys: Salo Lezama MD Acct: [id number] Dis Date: Status: REG CLI PHONE #: [phone] Exam Date: 10/04/2019922 FAX #: [phone] Reason: CLAUDICATION EXAMS: CPT CODE: [id number] [place] [address] <Continued> Axial source images show an enlarged liver with diffusely decreased attenuation. The kidneys are of normal size and are well- perfused. Scans through the lower chest show hyperinflated lungs. IMPRESSION: 1. Extensive atherosclerotic changes of the aortic and iliac arteries. 2. Patent visceral arteries, except for the LARS. 3. Patent aortobiiliac bypass graft. 4. Patent femoropopliteal vessels with 50% stenosis of the left common femoral artery but no other significant stenosis. 5. Poor infrapopliteal runoff bilaterally with patent anterior tibial arteries and severe disease of the posterior tibial and peroneal arteries including multiple short occlusions and stenoses. 6. Fatty liver. 7. Emphysema. Location code: [facility] at 2214 Reported and signed by: Elmo Caldera M.D. CC: Salo Lezama MD; Andie San M.D. Technologist:Rojelio Marion RT(R),(MR),(CT); CTDI: DLP: Trnscb Date/Time: 10/04/2019 (2213) Renata Orig Print D/T: S: 10/04/2019 (2216) PAGE 2 Signed Report COMPREHENSIVE METABOLIC [id number] 08:58:00* Test Item Value Reference Range Interpretation Comments SODIUM (test code = NA) 138 mmol/L 136-145 N POTASSIUM (test code = K) 3.9 mmol/L 3.5-5.1 N CHLORIDE (test code = CL) 104.0 mmol/L 98-107 N CARBON DIOXIDE (test code = CO2) 26.0 mmol/L 21-32 N ANION GAP (test code = GAP) 11.9 10-20 N GLUCOSE (test code = GLU) 123 mg/dL 74-106 H BLOOD UREA NITROGEN (test code = BUN) 12 mg/dL 7-18 N GLOMERULAR FILTRATION RATE (test code = GFR) > 60 mL/min >=60 Estimated GFR by using Modified MDRD formula.Chronic kidney disease is defined as either kidney damageor GFR <60 mL/min/1.73 m2 for >3 months. CREATININE (test code = CREAT) 0.80 mg/dL 0.55-1.02 N Note change in reference range due to change in reagent. BUN/CREATININE RATIO (test code = BUN/CREA) 15.0 10-20 N TOTAL PROTEIN (test code = PROT) 7.7 gram/dL 6.4-8.2 N ALBUMIN (test code = ALB) 3.9 g/dL 3.4-5.0 N GLOBULIN (test code = GLOB) 3.8 gram/dL 2.7-4.2 N ALBUMIN/GLOBULIN RATIO (test code = A/G) 1.0 0.75-1.50 N CALCIUM (test code = CA) 9.3 mg/dL 8.5-10.1 N BILIRUBIN TOTAL (test code = BILT) 0.30 mg/dL 0.0-1.0 N SGOT/AST (test code = AST) 12 IUnit/L 15-37 L SGPT/ALT (test code = ALT) 20 IUnit/L 12-78 N ALKALINE PHOSPHATASE TOTAL (test code = ALKP) 96 IUnit/L 45-117 N Note change in reference range due to change in reagent. LIPID PROFILE (CORONARY RISK)2019-10-04 08:58:00* Test Item Value Reference Range Interpretation Comments TRIGLYCERIDES (test code = TRIG) 58 mg/dL 20-150 N CHOLESTEROL (test code = CHOL) 159 mg/dL 0-200 N CHOLESTEROL/HDL RATIO (test code = CHOLHDL) 2.0 RATIO 0-4.9 N RISK ASSOCIATED WITH CHOL/HDL RATIOS: Risk Male Female1/2 AVERAGE 3.43 3.27AVERAGE 4.97 4.442X AVERAGE 9.55 7.053X AVERAGE 23.39 11.04 REFERENCE VALUE IS RELATED TO RISK LEVELS ASRECOMMENDED BY THE LYRIC. HEART, LUNG, AND BLOOD INST. HDL CHOLESTEROL (test code = HDL) 66 mg/dL 40-60 H LIPOPROTEIN LDL (test code = LDL) 81 mg/dL 100-129 L Reference Interval: mg/dL mmol/L Optimal <100 <2.6Near/above optimal 100-129 2.6- 3.3Borderline High 130-159 3.4-4.1High 160-189 4.1-4.9Very High >=190 >=4.9========= This LDL result is a direct measurement.========= THYROID STIMULATING [id number] 08:58:00* Test Item Value Reference Range Interpretation Comments THYROID STIMULATING HORMONE (test code = TSH) 0.354 uIU/mL 0.36-3.7 4 L TSH REFERENCE RANGES: EUTHYROID: 0.35 - 4.3 mIU/mL HYPO : > 5.5 mIU/mL HYPER : < 0.35 mIU/mL COMPREHENSIVE METABOLIC [id number] 08:36:00* Test Item Value Reference Range Interpretation Comments SODIUM (test code = NA) 138 mmol/L 136-145 N POTASSIUM (test code = K) 3.9 mmol/L 3.5-5.1 N CHLORIDE (test code = CL) 104.0 mmol/L 98-107 N CARBON DIOXIDE (test code = CO2) mmol/L 21-32 ANION GAP (test code = GAP) 10-20 GLUCOSE (test code = GLU) mg/dL 74-106 BLOOD UREA NITROGEN (test code = BUN) mg/dL 7-18 GLOMERULAR FILTRATION RATE (test code = GFR) mL/min >=60 CREATININE (test code = CREAT) mg/dL 0.55-1.02 BUN/CREATININE RATIO (test code = BUN/CREA) 10-20 TOTAL PROTEIN (test code = PROT) gram/dL 6.4-8.2 ALBUMIN (test code = ALB) g/dL 3.4-5.0 GLOBULIN (test code = GLOB) gram/dL 2.7-4.2 ALBUMIN/GLOBULIN RATIO (test code = A/G) 0.75-1.50 CALCIUM (test code = CA) mg/dL 8.5-10.1 BILIRUBIN TOTAL (test code = BILT) mg/dL 0.0-1.0 SGOT/AST (test code = AST) IUnit/L 15-37 SGPT/ALT (test code = ALT) IUnit/L 12-78 ALKALINE PHOSPHATASE TOTAL (test code = ALKP) IUnit/L 45-117 LIPID PROFILE (CORONARY RISK)2019-10-04 08:36:00* Test Item Value Reference Range Interpretation Comments TRIGLYCERIDES (test code = TRIG) mg/dL 20-150 CHOLESTEROL (test code = CHOL) mg/dL 0-200 CHOLESTEROL/HDL RATIO (test code = CHOLHDL) RATIO 0-4.9 HDL CHOLESTEROL (test code = HDL) mg/dL 40-60 LIPOPROTEIN LDL (test code = LDL) mg/dL 100-129 THYROID STIMULATING [id number] 08:36:00* Test Item Value Reference Range Interpretation Comments THYROID STIMULATING HORMONE (test code = TSH) uIU/mL 0.36-3.7 4 CBC W/AUTO [id number] 08:25:00* Test Item Value Reference Range Interpretation Comments WHITE BLOOD CELL (test code = WBC) 10.1 K/mm3 4.5-12.5 N RED BLOOD CELL (test code = RBC) 4.23 mill/mm3 3.7-5.2 N HEMOGLOBIN (test code = HGB) 12.8 gram/dL 11.5-15.5 N HEMATOCRIT (test code = HCT) 38.5 % 36.0-46.0 N MEAN CELL VOLUME (test code = MCV) 91.0 fL 80-98 N MEAN CELL HGB (test code = MCH) 30.3 picogram 27.0-33.0 N MEAN CELL HGB CONCETRATION (test code = MCHC) 33.2 gram/dL 33.0-36. 0 N RED CELL DISTRIBUTION WIDTH (test code = RDW) 13.9 % 11.6-16. 2 N RED CELL DISTRIBUTION WIDTH SD (test code = RDW-SD) 46.4 fL 37 .0-51.0 N PLATELET COUNT (test code = PLT) 346 K/mm3 150-450 N MEAN PLATELET VOLUME (test code = MPV) 9.0 fL 6.7-11.0 N NEUTROPHIL % (test code = NT%) 93.5 % 39.0-69.0 H IMMATURE GRANULOCYTE % (test code = IG%) 0.4 % 0.0-5.0 N LYMPHOCYTE % (test code = LY%) 5.1 % 25.0-55.0 L MONOCYTE % (test code = MO%) 0.9 % 0.0-10.0 N EOSINOPHIL % (test code = EO%) 0.0 % 0.0-5.0 N BASOPHIL % (test code = BA%) 0.1 % 0.0-1.0 N NUCLEATED RBC % (test code = NRBC%) 0.0 % 0-0 N NEUTROPHIL # (test code = NT#) 9.47 K/mm3 1.8-7.7 H IMMATURE GRANULOCYTE # (test code = IG#) 0.04 x10 3/uL 0-0.03 H LYMPHOCYTE # (test code = LY#) 0.52 K/mm3 1.0-5.0 L MONOCYTE # (test code = MO#) 0.09 K/mm3 0-0.8 N EOSINOPHIL # (test code = EO#) 0.00 K/mm3 0.0-0.5 N BASOPHIL # (test code = BA#) 0.01 K/mm3 0.0-0.2 N NUCLEATED RBC # (test code = NRBC#) 0.00 K/mm3 0.0-0.1 N MANUAL DIFF REQUIRED (test code = MDIFF) NO - XR CHEST 2 [id number] 07:58:00 FAX: Salo Quintana [phone] [place]: [facility] FAX: Andie Hinson [phone] Name: KATIANA GOLDMAN [facility] : 1955 Age/S: 63/F [address] [facility] Unit #: [id number] Loc: V.CTS [place] [id number] Phys: Salo Lezama MD Acct: [id number] Dis Date: Status: REG CLI PHONE #: [phone] Exam Date: 10/04/2019834 FAX #: [phone] Reason: I70.213,I44.9,E78.00,E03.9 EXAMS: CPT CODE: [id number] XR CHEST 2 V 36655 HISTORY: I70.213,I44.9,E78.00,E03.9 TECHNIQUE: PA and lateral chest x-ray COMPARISON: 03/24/18 FINDINGS: No airspace consolidation or pleural effusion. Pulmonary hyperinflation and emphysema. Normal heart size. Thoracic aortic vascular calcification. Degenerative changes of the spine. IMPRESSION: No radiographic evidence of acute cardiopulmonary process. LOCATION: at 0758 Reported and signed by: Inge Pang D.O. CC: Salo Lezama MD; Andie San M.D. Technologist: KIMBERLY Haynes) Trnscrd Date/Time/By: 10/04/2019 (0758) : By: [email or web address] Orig Print D/T: S: 10/04/2019 (0835) PAGE 1 Signed Report Bedside Glucose 2018-12-09 11:36:00* Test Item Value Reference Range Interpretation Comments Bedside Glucose (test code = 77110-6) 104 70-120 Meter ID: [id number] BudaWhite Blood Count 2018-12-09 05:51:00* Test Item Value Reference Range Interpretation Comments White Blood Count (test code = 6690-2) 8.41 4.8-10.8 [facility] BudaRed Blood Wmibl6788-53-74 05:51:00* Test Item Value Reference Range Interpretation Comments Red Blood Count (test code = 789-8) 3.60 3.6-5.1 [facility] BudaHemoglobin2019-04-03 05:51:00* Test Item Value Reference Range Interpretation Comments Hemoglobin (test code = 88317-2) 10.6 12.0-16.0 L [facility] BudaHematocrit2019-04-03 05:51:00* Test Item Value Reference Range Interpretation Comments Hematocrit (test code = 4544-3) 33.1 34.2-44.1 L [facility] BudaMean Corpuscular Utnrpn7413-23-51 05:51:00* Test Item Value Reference Range Interpretation Comments Mean Corpuscular Volume (test code = 787-2) 91.9 81-99 [facility] BudaMean Corpuscular Gebxqcybio0916-27-05 05:51:00* Test Item Value Reference Range Interpretation Comments Mean Corpuscular Hemoglobin (test code = 785-6) 29.4 28-32 [facility] Hemoglobin Concent 2018-12-09 05:51:00* Test Item Value Reference Range Interpretation Comments Mean Corpuscular Hemoglobin Concent (test code = 786-4) 32.0 31-35 [facility] BudaRed Cell Distribution Iqail5468-97-45 05:51:00* Test Item Value Reference Range Interpretation Comments Red Cell Distribution Width (test code = 48877-2) 15.9 11.7 -14.4 H [facility] BudaPlatelet Qlemu0465-25-03 05:51:00* Test Item Value Reference Range Interpretation Comments Platelet Count (test code = 777-3) 319 140-360 [facility] BudaNeutrophils (%) (Auto)2018-12-09 05:51:00 * Test Item Value Reference Range Interpretation Comments Neutrophils (%) (Auto) (test code = 72900-2) 70.5 38.7-80.0 [facility] BudaLymphocytes (%) (Auto)2018-12-09 05:51:00 * Test Item Value Reference Range Interpretation Comments Lymphocytes (%) (Auto) (test code = 736-9) 17.4 18.0-39.1 L [facility] BudaMonocytes (%) (Auto)2018-12-09 05:51:00* Test Item Value Reference Range Interpretation Comments Monocytes (%) (Auto) (test code = 5905-5) 8.2 4.4-11.3 [facility] BudaEosinophils (%) (Auto)2018-12-09 05:51:00 * Test Item Value Reference Range Interpretation Comments Eosinophils (%) (Auto) (test code = 713-8) 2.9 0.0-6.0 [facility] BudaBasophils (%) (Auto)2018-12-09 05:51:00* Test Item Value Reference Range Interpretation Comments Basophils (%) (Auto) (test code = 706-2) 0.6 0.0-1.0 [facility] BudaIM GRANULOCYTES %2018-12-09 05:51:00* Test Item Value Reference Range Interpretation Comments IM GRANULOCYTES % (test code = IM GRANULOCYTES %) 0.4 0.0- 1.0 [facility] BudaNeutrophils # (Auto)2018-12-09 05:51:00* Test Item Value Reference Range Interpretation Comments Neutrophils # (Auto) (test code = 751-8) 5.9 2.1-6.9 [facility] BudaLymphocytes # (Auto)2018-12-09 05:51:00* Test Item Value Reference Range Interpretation Comments Lymphocytes # (Auto) (test code = 53184-2) 1.5 1.0-3.2 [facility] BudaMonocytes # (Auto)2018-12-09 05:51:00* Test Item Value Reference Range Interpretation Comments Monocytes # (Auto) (test code = 742-7) 0.7 0.2-0.8 [facility] BudaEosinophils # (Auto)2018-12-09 05:51:00* Test Item Value Reference Range Interpretation Comments Eosinophils # (Auto) (test code = 711-2) 0.2 0.0-0.4 [facility] BudaBasophils # (Auto)2018-12-09 05:51:00* Test Item Value Reference Range Interpretation Comments Basophils # (Auto) (test code = 704-7) 0.1 0.0-0.1 [facility] BudaAbsolute Immature Granulocyte (auto 2018-12-09 05:51:00* Test Item Value Reference Range Interpretation Comments Absolute Immature Granulocyte (auto (london t code = Absolute Immature Granulocyte (auto) 0.03 0-0.1 [facility] BudaUrine Ngtfmht9686-38-76 07:20:00* Test Item Value Reference Range Interpretation Comments Urine Culture (test code = 630-4) Organism: KLEBSIELLA PNEUMONIAE [facility] BudaG I DGJUB2885-25-14 18:40:00 [facility] [address] [place] [address] Patient Name: KATIANA GOLDMAN MR #: [id number] : 1955 Age/Sex: 63/F Req #: [id number] Adm Physician: RUSTY ALAMO MD Ordered by: LING MACKEY MD Report #: [id number] Location: MED/SURG Room/Bed: [facility] Procedure: [id number] NM/ G I BLEED Exam Date: 12/03/18 Exam Time: 1500 REPORT STATUS: Signed Tagged-RBC GI Bl eed Study Clinical information: 63-year-old female with bright red blood pe r rectum; history of small bowel blockage in 2011.. Discussion: The patie nt's own red blood cells were labeled with 28 mCi of technetium-99m pertechnet ate using the in vitro method (UltraTag). Dynamic images of the abdomen were obtained through 60 minutes. Distribution of tracer activity initially appe ars physiologic throughout the abdomen but within 5 minutes tracer appears in the right mid quadrant laterally adjacent to the tip of the liver and propagat es a short distance in a circuitous pattern and continues to intensify during the remainder of the study. No abnormal accumulation of tracer is seen elsewh ere within the gastrointestinal lumen. Impression: Small bowel blee d is detected in the right mid quadrant near the tip of the liver. Signed by: Dr. Sultana Lainez M.D. on 12/03/2018 6:47 PM Dictated By: SULTANA LAINEZ MD 46 Transcribed By: Deysi HURST on 12/03/181846 COPY TO: LING MACKEY MD Sodium Level 2018-12-03 06:24:00* Test Item Value Reference Range Interpretation Comments Sodium Level (test code = 2951-2) 131 136-145 L [facility] BudaPotassium Bbveh8854-56-60 06:24:00* Test Item Value Reference Range Interpretation Comments Potassium Level (test code = 2823-3) 4.2 3.5-5.1 [facility] BudaChloride Vmern2270-98-90 06:24:00* Test Item Value Reference Range Interpretation Comments Chloride Level (test code = 2075-0) 101 98-107 [facility] BudaCarbon Dioxide Lfcjx9980-27-31 06:24:00* Test Item Value Reference Range Interpretation Comments Carbon Dioxide Level (test code = 2028-9) 24 22-29 [facility] BudaAnion Wmd7012-27-83 06:24:00* Test Item Value Reference Range Interpretation Comments Anion Gap (test code = 22115-4) 10.2 8-16 [facility] BudaBlood Urea Yhzlcmdp4012-61-22 06:24:00* Test Item Value Reference Range Interpretation Comments Blood Urea Nitrogen (test code = 3094-0) 19 7-26 [facility] BudaCreatinine2019-03-28 06:24:00* Test Item Value Reference Range Interpretation Comments Creatinine (test code = 2160-0) 0.68 0.57-1.11 [facility] BudaBUN/Creatinine Nvgcc5924-64-47 06:24:00* Test Item Value Reference Range Interpretation Comments BUN/Creatinine Ratio (test code = 3097-3) 28 6-[address] [facility] CenterEstim[facility] Glomerular Filtration Rate 2018-12-03 06:24:00* Test Item Value Reference Range Interpretation Comments Estimat Glomerular Filtration Rate (test code = 969011016) > 60 >60 Ranges were taken from the National Kidney Disease Education Program and the [facility] Kidney Foundation literature.Reference ranges:60 or greater: Skocit16-74 ( for 3 consecutive months): Chronic kidney disease 15 or less: Kidney failureBaylor Scott & White Medical Center – BudaGlucose Klirz9471-10-22 06:24:00* Test Item Value Reference Range Interpretation Comments Glucose Level (test code = FSW6038) 102 74-118 [facility] BudaCalcium Llgpk1012-01-29 06:24:00* Test Item Value Reference Range Interpretation Comments Calcium Level (test code = 70408-2) 8.4 8.4-10.2 [facility] BudaTotal Wpnipdphk3804-74-84 06:24:00* Test Item Value Reference Range Interpretation Comments Total Bilirubin (test code = 1975-2) 0.2 0.2-1.2 [facility] – BudaAspartate Amino Transf (AST/SGOT) 2018-12-03 06:24:00* Test Item Value Reference Range Interpretation Comments Aspartate Amino Transf (AST/SGOT) (test code = Aspartate Amino Transf (AST/SGOT)) 12 5-34 [facility] BudaAlanine Aminotransferase (ALT/SGPT) 2018-12-03 06:24:00* Test Item Value Reference Range Interpretation Comments Alanine Aminotransferase (ALT/SGPT) (test code = 1742-6) 8 0-55 [facility] BudaTotal Hpwqyuz7463-54-02 06:24:00* Test Item Value Reference Range Interpretation Comments Total Protein (test code = 2885-2) 5.2 6.5-8.1 L [facility] BudaAlbumin2019-03-28 06:24:00* Test Item Value Reference Range Interpretation Comments Albumin (test code = 1751-7) 3.1 3.5-5.0 L [facility] BudaGlobulin2019-03-28 06:24:00* Test Item Value Reference Range Interpretation Comments Globulin (test code = 01746-3) 2.1 2.3-3.5 L [facility] BudaAlbumin/Globulin Vrblf6950-94-77 06:24:00 * Test Item Value Reference Range Interpretation Comments Albumin/Globulin Ratio (test code = 1759-0) 1.5 0.8-2.0 [facility] BudaAlkaline Shkkndeapgd1092-30-31 06:24:00* Test Item Value Reference Range Interpretation Comments Alkaline Phosphatase (test code = 6768-6) 70 40-150 [facility] BudaCT ABDOMEN/PELVIS [id number] 22:04:00 [facility] [address] [address] Patient Name: KATIANA GOLDMAN MR #: [id number] : 1955 Age/Sex: 63/F Req #: [id number] Adm Physician: Ordered by: JAZ HONEYCUTT MD Report #: [id number] Location: ER Room/Bed: Procedure: [id number] CT/CT ABDOMEN/PELVIS WO Exam Date: 12/02/18 Leonora Time: 2119 REPORT STATUS: Signed EXAM: CT Abdomen and Pelvis WITHOUT contrast INDICATION: llq pain and blo od in stool. COMPARISON: None. TECHNIQUE: Abdomen and pelvis were scanne d utilizing a multidetector helical scanner from the lung base to the pubic sy mphysis without administration of IV contrast. Absence of intravenous contrast decreases sensitivity for detection of focal lesions and vascular pathology. Coronal and sagittal reformations were obtained. Routine protocol was performe d. IV CONTRAST: None ORAL CONTRAST: Water COMPLI CATIONS: None RADIATION DOSE: Total DLP: 295.3 mGy*cm Estimat ed effective dose: (DLP x 0.015 x size factor) mSv Dose modulation, itera tive reconstruction, and/or weight based adjustment of the mA/kV was utilized to reduce the radiation dose to as low as reasonably achievable. FINDING S: LINES and TUBES: None. LOWER THORAX: Unremarkable HEPATOBILIA RY: No focal hepatic lesions. No biliary ductal dilation. GALLBLADDER : Absent SPLEEN: No splenomegaly. PANCREAS: No focal masses or ductal dilatation. ADRENALS: No adrenal nodules KIDNEYS/URETERS: No h ydronephrosis. Left inferior pole 1.1 cm cyst. No stones. GI TRACT: No a bnormal distention, wall thickening, or evidence of bowel obstruction. PELVIC ORGANS/BLADDER: Distended bladder. Hysterectomy. LYMPH NODES: No lymphadenopathy. VESSELS: Limited evaluation. Diffuse vascular calcificat ions. Aortoiliac bypass. PERITONEUM / RETROPERITONEUM: No free air or flu id. BONES: Stable mild T11 and L1 compression deformities. SOFT TISSUE S: Gluteal injection granulomas. Midline laparotomy scar. IMP RESSION: No acute noncontrast CT abnormalities. Signed by: DR. Glynn Hollingsworth MD on 12/02/2018 10:15 PM Dictated By: GLYNN HOLLINGSWORTH MD Electronica lly Signed By: GLYNN HOLLINGSWORTH MD on 12/02/182214 Transcribed By: LENI on 2214 COPY TO: JAZ HONEYCUTT MD Urine ICG9158-05-04 17:04:00* Test Item Value Reference Range Interpretation Comments Urine WBC (test code = 5821-4) 11-20 0-5 H [facility] BudaUrine [id number] 17:04:00* Test Item Value Reference Range Interpretation Comments Urine RBC (test code = 58221-2) 0-5 0-5 [facility] BudaUrine Uhawmsgs1682-09-95 17:04:00* Test Item Value Reference Range Interpretation Comments Urine Bacteria (test code = 49921-8) MANY NONE H [facility] BudaUrine Epithelial Wjupr5743-06-02 17:04:00 * Test Item Value Reference Range Interpretation Comments Urine Epithelial Cells (test code = 77175-7) RARE NONE [facility] BudaUrine Uuxex3851-79-87 16:51:00* Test Item Value Reference Range Interpretation Comments Urine Color (test code = 5778-6) YELLOW YELLOW [facility] BudaUrine Zzkgitl1551-79-09 16:51:00* Test Item Value Reference Range Interpretation Comments Urine Clarity (test code = 98599-3) HAZY CLEAR [facility] BudaUrine Specific Yljzuse4665-97-20 16:51:00 * Test Item Value Reference Range Interpretation Comments Urine Specific [place] (test code = 5811-5) 1.005 1.010-1.02 5 L [facility] BudaUrine [id number] 16:51:00* Test Item Value Reference Range Interpretation Comments Urine pH (test code = 10606-3) 6 5-7 [facility] Leukocyte Xmjdgxws9146-43-47 16:51:00* Test Item Value Reference Range Interpretation Comments Urine Leukocyte Esterase (test code = 5799-2) 2+ NEGATIVE H [facility] Xwxunun5802-58-53 16:51:00* Test Item Value Reference Range Interpretation Comments Urine Nitrite (test code = 29945-0) POSITIVE NEGATIVE [facility] [place] [place] Qnnnvsm9839-77-15 16:51:00* Test Item Value Reference Range Interpretation Comments Urine Protein (test code = 5804-0) NEGATIVE NEGATIVE [facility] Glucose (UA)2018-12-02 16:51:00* Test Item Value Reference Range Interpretation Comments Urine Glucose (UA) (test code = 2349-9) NEGATIVE NEGATIVE [facility] Esosoqa9727-11-16 16:51:00* Test Item Value Reference Range Interpretation Comments Urine Ketones (test code = 53630-0) NEGATIVE NEGATIVE [facility] Vazinzfimdyb2217-99-94 16:51:00* Test Item Value Reference Range Interpretation Comments Urine Urobilinogen (test code = 46298-9) 0.2 0.2-1 [facility] BudaUrine Shwcmzgky7311-79-74 16:51:00* Test Item Value Reference Range Interpretation Comments Urine Bilirubin (test code = 1978-6) NEGATIVE NEGATIVE [facility] Nugmk7545-33-93 16:51:00* Test Item Value Reference Range Interpretation Comments Urine Blood (test code = 05663-8) 2+ NEGATIVE H [facility] HospitalMRI SP[facility] CERVICAL EW7501-80-99 08:19:00 [facility] [address] [address] Patient Name: KATIANA GOLDMAN MR #: [id number] : 1955 Age/Sex: 62/F Req #: [id number] Adm Physician: Ordered by: JEWEL LEÓN M.D. Report #: [id number] Location: MRI Room/B ed: Procedure: [id number] MRI/MRI SPINE CERVICAL WO E xam Date: Exam Time: REPORT STATUS: Signed EXAMINATION: MRI of the cervical spine without contrast HISTORY: Severe chronic neck pain, degenerated disc at C4-C7. Fibromyalgia. COMPARISON: None a vailable TECHNIQUE: Sagittal T1, T2, STIR; axial T2, gradient echo. Image qu ality: Motion artifact limits evaluation of some of the sequences. FINDINGS : Curvature: Normal lordosis. Vertebrae: No evidence of neoplasm, infecti on, or fracture. Mild chronic compression fracture of the T3 vertebral body, w ith decreased height by approximately 20%, no posterior retropulsion and no ca nal stenosis. Foramen magnum: No mass, Chiari malformation, or basilar invagin ation. Spinal Cord: Normal size and signal intensity. Soft Tissues: Unre markable. Degenerative changes: C1-C2 to C4-C5: No significant de generative changes, no spinal canal or foraminal stenosis. C5-C 6: Small disc osteophyte complex formation, bilateral uncovertebral and facet arthrosis. Moderate bilateral foraminal stenoses. C6-C7: Disc osteophy te complex formation, bilateral uncovertebral and facet arthrosis. Minimal spi nal canal and mild bilateral foraminal stenoses. C7-T1: Unremarkable. IMPRESSION: 1. Moderate degenerative bilateral foraminal stenosis at C5-C6. 2. Mild degenerative spinal canal and bilateral foraminal stenosis at C6-C7. Signed by: Dr. Morteza Hobbs M.D. on 05/29/2018 10:19 AM Dic tated By: MORTEZA HOBBS MD 1 019 Transcribed By: LENI on 05/29/18 1019 COPY TO: JEWEL LEÓN M.D. MRI SPINE LUMBAR IK1352-74-62 08:12:00 [place] [address] Patient Name: KATIANA GOLDMAN MR #: [id number] : 1955 Age/Sex: 62/F Req #: [id number] Adm Physician: Ordered by: JEWEL LEÓN M.D. Report #: [id number] Location: MRI Room/Bed: Procedure: [id number] MRI/MRI SPINE LUMBAR WO Exa m Date: Exam Time: REPORT STATUS: Signed E XAMINATION: MRI of the lumbar spine without contrast HISTORY: Low back pa in radiating to the bilateral lower extremities with weakness COMPARISON: No ne. TECHNIQUE: Sagittal T1, T2, STIR; axial T2 and proton density. F INDINGS: It is assumed that there are 5 lumbar vertebrae. Curvature/A lignment: Mild thoracolumbar kyphosis related to anterior wedging of the T12 a nd L1 vertebral bodies. Minimal retrolisthesis at T12-L1. Subtle right-sided c urvature. Vertebrae: No evidence of recent fracture, infection, or bubba plasm. Mild chronic compression fracture of the L1 vertebral body with depress ion of the superior endplate and decreased vertebral body height anteriorly by approximately 30%, no posterior retropulsion or canal stenosis. Minimal chron ic compression deformity of the T11 vertebral body with decreased vertebral avery dy height centrally by approximately 25%, without posterior retropulsion or c anal stenosis. Overall minimal decreased vertebral body height of T10 as well. Prominent benign hemangioma in the T12 vertebral body. Conus: Normal, terminating at L1 Cauda equina: Unremarkable. Lower thoracic: As above Paraspinal soft tissues: Moderate atrophy of the paraspinal muscles. Partially visualized T2 hyperintense probable cyst, in the left kidney. Degenerative changes: L1-L2: Mild symmetric disc bulge without canal or foraminal stenoses L2-L3: Unremarkable. L3-L4: Minimal disc bulge and facet arthrosis without stenoses L4-L5: Mild symmetric disc b ulge and moderate facet processes. No significant spinal canal stenosis. Mild bilateral foraminal stenoses. L5-S1: Mild symmetric disc bulge, moderat e facet arthrosis. No significant spinal canal or foraminal stenosis. IMPRESSION: 1. Mild thoracolumbar kyphosis related to chronic compression fractures of T11 and L1. 2. Mild degenerative changes at L4-L5 and L5-S1 without significant spinal canal or foraminal stenosis, particularly there is no evidence of nerve root compression. Signed by: Dr. Morteza Hobbs M.D. on 05/29/2018 9:54 AM Dictated By: MORTEZA HOBBS MD 3 Transcribed By: LENI on 05/29/18953 COPY TO: JEWEL LEÓN M.D. Bedside Tzaoomf5545-27-31 11:54:00* Test Item Value Reference Range Interpretation Comments Bedside Glucose (test code = 17255-9) 98 70-120 Meter ID: [id number] [facility] Campusodium Level 2018-04-16 06:13:00* Test Item Value Reference Range Interpretation Comments Sodium Level (test code = 2951-2) 129 136-[address] HospitalPotassium Rtawi9626-63-77 06:13:00* Test Item Value Reference Range Interpretation Comments Potassium Level (test code = 2823-3) 3.6 3.5-5.1 [facility] BudaChloride Jmmeo6580-02-97 06:13:00* Test Item Value Reference Range Interpretation Comments Chloride Level (test code = 2075-0) 102 98-107 [facility] BudaCarbon Dioxide Hpdjl1580-43-97 06:13:00* Test Item Value Reference Range Interpretation Comments Carbon Dioxide Level (test code = 2028-9) 15 22-29 L [facility] BudaAnion Uik7862-35-50 06:13:00* Test Item Value Reference Range Interpretation Comments Anion Gap (test code = 08276-8) 15.6 8-16 [facility] BudaBlood Urea Gkklxspf1220-83-90 06:13:00* Test Item Value Reference Range Interpretation Comments Blood Urea Nitrogen (test code = 3094-0) 8 7-26 [facility] BudaCreatinine2018-08-09 06:13:00* Test Item Value Reference Range Interpretation Comments Creatinine (test code = 2160-0) 0.65 0.57-1.11 [facility] BudaBUN/Creatinine Dnwra6610-30-33 06:13:00* Test Item Value Reference Range Interpretation Comments BUN/Creatinine Ratio (test code = 3097-3) 12 6-25 [facility] BudaEstimat Glomerular Filtration Rate 2018-04-16 06:13:00* Test Item Value Reference Range Interpretation Comments Estimat Glomerular Filtration Rate (test code = 05981-7) 60- >60 Ranges were taken from the National Kidney Disease Education Program and the [employer] literature.Reference ranges:60 or greater: Gidpxn22-64 ( for 3 consecutive months): Chronic kidney disease 15 or less: Kidney failureB[facility] & [facility] – BudaGlucose Tbbxx5411-91-85 06:13:00* Test Item Value Reference Range Interpretation Comments Glucose Level (test code = RRD7928) 106 74-118 [facility] BudaCalcium Crkmp1550-62-08 06:13:00* Test Item Value Reference Range Interpretation Comments Calcium Level (test code = 39687-9) 8.3 8.4-10.2 L [facility] BudaMagnesium Jmkny2678-01-40 06:13:00* Test Item Value Reference Range Interpretation Comments Magnesium Level (test code = 40770-3) 1.4 1.3-2.1 [facility] BudaMagnesium Idmpl3423-05-28 06:13:00* Test Item Value Reference Range Interpretation Comments Magnesium Level (test code = 16784-4) 1.4 1.3-2.1 [facility] BudaBacterial urine nbkrucd1183-78-62 06:11:00* Test Item Value Reference Range Interpretation Comments Urine Culture (test code = 630-4) Organism: PROTEUS MIRABILIS [facility] BudaUrine Arsdvzo4965-36-77 06:11:00* Test Item Value Reference Range Interpretation Comments Urine Culture (test code = 630-4) Organism: PROTEUS MIRABILIS [facility]2018-04-14 18:09:00* Test Item Value Reference Range Interpretation Comments Stool Lactoferrin (LAB) (test code = 57165-5) POSITIVE NEGATIVE H Testing on stool aspirate specimens is outside transportation planning engineer claims since specime n type not validated on this assay.[facility]errin (LAB)2018-04-14 18:09:00* Test Item Value Reference Range Interpretation Comments Stool Lactoferrin (LAB) (test code = 10706-3) POSITIVE NEGATIVE H Testing on stool aspirate specimens is outside transportation planning engineer claims since specime n type not validated on this assay.[facility] BudaCT ABDOMEN/PELVIS [id number] 16:55:00 [facility] [address] [address] Patient Name: KATIANA GOLDMAN MR #: [id number] : 1955 Age/Sex: 62/F Req #: [id number] Adm Physician: LISA HUTCHINSON MD Ordered by: LISA HUTCHINSON MD Report #: [id number] Location: MED/SURG3 Room/Bed: [facility] Procedure: [id number] C T/CT ABDOMEN/PELVIS WO Exam Date: 04/14/18 Exam Time : 1450 REPORT STATUS: Signed PROCEDURE: CT ABDOMEN AND PELVIS WITHOUT C ONTRAST TECHNIQUE: The abdomen and pelvis were scanned utilizing a mult idetector helical scanner from the diaphragm to the lesser trochanter. No ora l contrast was given due to vomiting. No IV contrast was administered due to history of iodine allergy. Coronal and sagittal multiplanar reformations w ere obtained. COMPARISON: Patients [facility], CT, CT ABDOMEN/PELVIS WO, 07/10/2012, 0:41. INDICATIONS: VOMITING, HYPOKALEMIA, history of bowel obstruction in 2011 FINDINGS: ABSENCE OF INTRAVENOUS CONTR AST DECREASES SENSITIVITY FOR DETECTION OF FOCAL LESIONS AND VASCULAR PATHOLO GY. LOWER THORAX: Stable scarring in the anterior right lower lobe (series 2 image 4). Atherosclerotic calcification of the distal thoracic aorta. HEPATOBILIARY: Decreased attenuation of the hepatic parenchyma predominantly involving the right hepatic lobe, consistent with focal steatosis. No focal lesions. No intrahepatic biliary ductal dilation. Stable mild prominence of the common bile duct, which measures approximately 7 mm at the amy hepatis. No radiopaque intraluminal filling defects. Cholecystectomy clips. SPLEEN: No splenomegaly. PANCREAS: No focal masses or ductal dilatation. Mild to mode rate pancreatic atrophy. ADRENALS: No adrenal nodules. KIDNEYS/URETER S: No hydronephrosis, stones, or solid mass lesions. PELVIC ORGANS/BLADDER: Bl adder is moderately distended. No focal lesions or wall thickening. Uterus is not visualized. No adnexal masses. PERITONEUM / RETROPERITONEUM: No fr ee air or fluid. LYMPH NODES: No lymphadenopathy. VESSELS: Marked atheroscle rotic calcification of the abdominal aorta, predominantly the distal portion of proximal vessels. Stable aortobiiliac bypass graft, which shows mild calci fication. GI TRACT: There is mild focal dilation of a single loop of proxi mal jejunum (series 2, image 17), which tapers to normal caliber. No surro unding inflammatory changes or wall thickening. No evidence of obstruction. N o pericolonic inflammatory changes. The stomach is decompressed and difficult to evaluate. BONES AND SOFT TISSUES: No aggressive lytic lesions. Stable mild anterior wedging of these L1 vertebral body. Bilateral gluteal region calcified injection granulomas. 5.3 x 1.7 x 4.5 cm structure with central flu id density in the subcutaneous soft tissues of the left anterolateral pelvis (series 2 image 45). No significant surrounding fat stranding. IMPRESSI ON: 1. Mild focal dilation of a single loop of proximal jejunum, which is likely secondary to peristalsis. There is no surrounding inflammatory stalpes ges, no wall thickening, and the loop tapers to normal caliber. The rest of t he bowel shows normal caliber. No evidence of obstruction. 2. Mild prominence of the common bile duct, likely reflecting post cholecystectomy status. 3. Hepatic steatosis, predominately involving the right hepatic lobe. 4. 5.3 cm fluid collection in the subcutaneous soft tissues of the left anterior latera l pelvis. Unable to assess for abscess given the lack of intravenous contrast . Correlate for recent surgery. Hussein Brown M.D. Dictated b y: Hussein Brown M.D. on 04/14/2018 at 16:55 Electronically approved by: Hussein Brown M.D. on 04/14/2018 at 16:55 Dictated B y: HUSSEIN BROWN MD 16 55 Transcribed By: ALEXANDRA on 04/14/18 0955 COPY TO: LISA HUTCHINSON MD Clostridium Difficile Toxin A & [id number] 15:06:00* Test Item Value Reference Range Interpretation Comments Clostridium Difficile Toxin A & B (test code = 704660276) NEGATIVE NEGATIVE Testing on stool aspirate specimens is outside transportation planning engineer claims since specime n type not validated on this assay.[facility] Clostridium Difficile Toxin A & [id number] 15:06:00* Test Item Value Reference Range Interpretation Comments Clostridium Difficile Toxin A & B (test code = 664799436) NEGATIVE NEGATIVE Testing on stool aspirate specimens is outside transportation planning engineer claims since specime n type not validated on this assay.[facility] BudaTotal Rdncxfnec3717-78-08 06:12:00* Test Item Value Reference Range Interpretation Comments Total Bilirubin (test code = 1975-2) 0.4 0.2-1.2 [facility] BudaAspartate Amino Transf (AST/SGOT) 2018-04-13 06:12:00* Test Item Value Reference Range Interpretation Comments Aspartate Amino Transf (AST/SGOT) (test code = Aspartate Amino Transf (AST/SGOT)) 16 5-34 [facility] BudaAlanine Aminotransferase (ALT/SGPT) 2018-04-13 06:12:00* Test Item Value Reference Range Interpretation Comments Alanine Aminotransferase (ALT/SGPT) (test code = 1742-6) 16 0-55 [facility] BudaTotal Bvgkmib7810-71-05 06:12:00* Test Item Value Reference Range Interpretation Comments Total Protein (test code = 2885-2) 5.9 6.5-8.1 L [facility] BudaAlbumin2018-08-06 06:12:00* Test Item Value Reference Range Interpretation Comments Albumin (test code = 1751-7) 3.6 3.5-5.0 [facility] BudaGlobulin2018-08-06 06:12:00* Test Item Value Reference Range Interpretation Comments Globulin (test code = 73679-1) 2.3 2.3-3.5 [facility] BudaAlbumin/Globulin Wnvrc7734-15-14 06:12:00 * Test Item Value Reference Range Interpretation Comments Albumin/Globulin Ratio (test code = 1759-0) 1.6 0.8-2.0 [facility] BudaAlkaline Tohocsjrcqb3652-46-43 06:12:00* Test Item Value Reference Range Interpretation Comments Alkaline Phosphatase (test code = 6768-6) 98 40-150 [facility] BudaWhite Blood Aurjg7009-87-04 05:58:00* Test Item Value Reference Range Interpretation Comments White Blood Count (test code = 6690-2) 10.15 4.8-10.8 [facility] BudaRed Blood Rxuay8915-94-34 05:58:00* Test Item Value Reference Range Interpretation Comments Red Blood Count (test code = 789-8) 3.13 3.6-5.1 L [facility] BudaHemoglobin2018-08-06 05:58:00* Test Item Value Reference Range Interpretation Comments Hemoglobin (test code = 04273-1) 9.6 12.0-16.0 L [facility] BudaHematocrit2018-08-06 05:58:00* Test Item Value Reference Range Interpretation Comments Hematocrit (test code = 4544-3) 27.6 34.2-44.1 L [facility] BudaMean Corpuscular Wdlsvg3164-21-37 05:58:00* Test Item Value Reference Range Interpretation Comments Mean Corpuscular Volume (test code = 787-2) 88.2 81-99 [facility] BudaMean Corpuscular Gxrmsljwml3037-80-14 05:58:00* Test Item Value Reference Range Interpretation Comments Mean Corpuscular Hemoglobin (test code = 785-6) 30.7 28-32 [facility] BudaMean Corpuscular Hemoglobin Concent 2018-04-13 05:58:00* Test Item Value Reference Range Interpretation Comments Mean Corpuscular Hemoglobin Concent (test code = 786-4) 34.8 31-35 [facility] BudaRed Cell Distribution Bbnrb5579-07-68 05:58:00* Test Item Value Reference Range Interpretation Comments Red Cell Distribution Width (test code = 01202-2) 12.5 11.7 -14.4 [facility] BudaPlatelet Xwydi9471-85-24 05:58:00* Test Item Value Reference Range Interpretation Comments Platelet Count (test code = 777-3) 333 140-360 [facility] BudaNeutrophils (%) (Auto)2018-04-13 05:58:00 * Test Item Value Reference Range Interpretation Comments Neutrophils (%) (Auto) (test code = 48747-5) 76.1 38.7-80.0 [facility] BudaLymphocytes (%) (Auto)2018-04-13 05:58:00 * Test Item Value Reference Range Interpretation Comments Lymphocytes (%) (Auto) (test code = 736-9) 14.9 18.0-39.1 L [facility] BudaMonocytes (%) (Auto)2018-04-13 05:58:00* Test Item Value Reference Range Interpretation Comments Monocytes (%) (Auto) (test code = 5905-5) 7.2 4.4-11.3 [facility] BudaEosinophils (%) (Auto)2018-04-13 05:58:00 * Test Item Value Reference Range Interpretation Comments Eosinophils (%) (Auto) (test code = 713-8) 0.9 0.0-6.0 [facility] BudaBasophils (%) (Auto)2018-04-13 05:58:00* Test Item Value Reference Range Interpretation Comments Basophils (%) (Auto) (test code = 706-2) 0.4 0.0-1.0 [facility] BudaIM GRANULOCYTES %2018-04-13 05:58:00* Test Item Value Reference Range Interpretation Comments IM GRANULOCYTES % (test code = IM GRANULOCYTES %) 0.5 0.0- 1.0 [facility] BudaNeutrophils # (Auto)2018-04-13 05:58:00* Test Item Value Reference Range Interpretation Comments Neutrophils # (Auto) (test code = 751-8) 7.7 2.1-6.9 H [facility] BudaLymphocytes # (Auto)2018-04-13 05:58:00* Test Item Value Reference Range Interpretation Comments Lymphocytes # (Auto) (test code = 38964-5) 1.5 1.0-3.2 [facility] BudaMonocytes # (Auto)2018-04-13 05:58:00* Test Item Value Reference Range Interpretation Comments Monocytes # (Auto) (test code = 742-7) 0.7 0.2-0.8 [facility] BudaEosinophils # (Auto)2018-04-13 05:58:00* Test Item Value Reference Range Interpretation Comments Eosinophils # (Auto) (test code = 711-2) 0.1 0.0-0.4 [facility] BudaBasophils # (Auto)2018-04-13 05:58:00* Test Item Value Reference Range Interpretation Comments Basophils # (Auto) (test code = 704-7) 0.0 0.0-0.1 [facility] BudaAbsolute Immature Granulocyte (auto 2018-04-13 05:58:00* Test Item Value Reference Range Interpretation Comments Absolute Immature Granulocyte (auto (london t code = Absolute Immature Granulocyte (auto) 0.05 0-0.1 [facility] BudaUrine Atbty8257-27-20 21:26:00* Test Item Value Reference Range Interpretation Comments Urine Color (test code = 5778-6) YELLOW YELLOW [facility] BudaUrine Intpcrz2641-06-77 21:26:00* Test Item Value Reference Range Interpretation Comments Urine Clarity (test code = 65540-5) CLOUDY CLEAR H [facility] BudaUrine Specific Tpjxhhp6868-51-22 21:26:00 * Test Item Value Reference Range Interpretation Comments Urine Specific [place] (test code = 5811-5) 1.005 1.010-1.02 5 L [facility] BudaUrine cP7886-16-04 21:26:00* Test Item Value Reference Range Interpretation Comments Urine pH (test code = 59656-4) 7 5-7 [facility] BudaUrine Leukocyte Bjmblmjd3249-02-85 21:26:00* Test Item Value Reference Range Interpretation Comments Urine Leukocyte Esterase (test code = 5799-2) 2+ NEGATIVE H [facility] BudaUrine Mnnhowb1770-12-17 21:26:00* Test Item Value Reference Range Interpretation Comments Urine Nitrite (test code = 61616-1) POSITIVE NEGATIVE H [facility] BudaUrine Tidljnu9269-27-31 21:26:00* Test Item Value Reference Range Interpretation Comments Urine Protein (test code = 5804-0) NEGATIVE NEGATIVE [facility] BudaUrine Glucose (UA)2018-04-12 21:26:00* Test Item Value Reference Range Interpretation Comments Urine Glucose (UA) (test code = 2349-9) NEGATIVE NEGATIVE [facility] BudaUrine Zhpwraq1981-41-07 21:26:00* Test Item Value Reference Range Interpretation Comments Urine Ketones (test code = 25250-1) NEGATIVE NEGATIVE [facility] BudaUrine Gksccmggynsm1540-69-22 21:26:00* Test Item Value Reference Range Interpretation Comments Urine Urobilinogen (test code = 39028-4) 0.2 0.2-1 [facility] BudaUrine Ezerrirtu3062-70-50 21:26:00* Test Item Value Reference Range Interpretation Comments Urine Bilirubin (test code = 1978-6) NEGATIVE NEGATIVE [facility] BudaUrine Auhra1759-74-48 21:26:00* Test Item Value Reference Range Interpretation Comments Urine Blood (test code = 83768-1) NEGATIVE NEGATIVE [facility] BudaUrine MLG2436-12-01 21:26:00* Test Item Value Reference Range Interpretation Comments Urine WBC (test code = 5821-4) 50- 0-5 H [facility] BudaUrine MKK8137-01-03 21:26:00* Test Item Value Reference Range Interpretation Comments Urine RBC (test code = 77798-9) 0-5 0-5 [facility] BudaUrine Smszmkpb6074-54-03 21:26:00* Test Item Value Reference Range Interpretation Comments Urine Bacteria (test code = 89825-0) MANY NONE H [facility] BudaUrine Epithelial Cjzuf7143-83-28 21:26:00 * Test Item Value Reference Range Interpretation Comments Urine Epithelial Cells (test code = 87497-6) FEW NONE [facility] BudaABDOMEN ACUTE SERIES W/PA SRQ7646-80-31 20:26:[address] [address] Patient Name: KATIANA GOLDMAN MR #: [id number] : 1955 Age/Sex: 62/F Req #: [id number] Adm Physician: Ordered by: JAZ HONEYCUTT MD Report #: [id number] Location: ER Room/Bed: Procedure: [id number] DX/ABDOMEN ACUTE SERIE S W/PA CXR Exam Date: 04/12/18 Exam Time: 1949 REPORT STATUS: Signed ABDOMEN ACUTE SERIES W/PA CXR Clinical history: V omiting, abdominal pain Technique: AP views of the abdomen, frontal chest x-ra y Comparison: 10/09/2016 Findings: Abdomen: Motion artifact degrades upri ght view. Right upper quadrant clips and overlying skin alexis. No evidence o f obstruction or free air. Mild colonic stool burden. Chest: Stable cardi omediastinal silhouette. Hyperinflation with scattered linear areas of scarrin g. Stable blunting of the right costophrenic angle. No large effusion or pneum othorax. Impression: Nonobstructive bowel gas pattern. Signed by: Sarai Bass MD on 04/12/2018 8:30 PM Dictated By: DWIGHT BASS MD 29 Transcribed By: Deysi HURST on 04/12/182029 COPY TO: JAZ HONEYCUTT MD Creatine Mpmhps5308-99-11 20:20:00* Test Item Value Reference Range Interpretation Comments Creatine Kinase (test code = 2157-6) 61 29-168 [facility] BudaCreatine Kinase ZI4243-76-47 20:20:00* Test Item Value Reference Range Interpretation Comments Creatine Kinase MB (test code = 04069-7) 2.10 0-5.0 [facility] BudaTroponin [id number] 20:20:00* Test Item Value Reference Range Interpretation Comments Troponin I (test code = ZAQ8183) 0.025 0-0.300 [facility] BudaAmylase Tafdm3593-51-74 20:20:00* Test Item Value Reference Range Interpretation Comments Amylase Level (test code = 1798-8) 37 25-125 [facility] BudaLipase2018-08-05 20:20:00* Test Item Value Reference Range Interpretation Comments Lipase (test code = 3040-3) 10 [facility] BudaCreatine Pylpzt7959-76-15 20:20:00* Test Item Value Reference Range Interpretation Comments Creatine Kinase (test code = 2157-6) 61 29-168 [facility] BudaCreatine Kinase NX6243-69-24 20:20:00* Test Item Value Reference Range Interpretation Comments Creatine Kinase MB (test code = 39780-4) 2.10 0-5.0 [facility] BudaTroponin [id number] 20:20:00* Test Item Value Reference Range Interpretation Comments Troponin I (test code = RTF2111) 0.025 0-0.300 [facility] BudaAmylase Txmca3370-90-22 20:20:00* Test Item Value Reference Range Interpretation Comments Amylase Level (test code = 1798-8) 37 25-125 [facility] BudaLipase2018-08-05 20:20:00* Test Item Value Reference Range Interpretation Comments Lipase (test code = 3040-3) 10 [facility] BudaArterial Blood kZ7897-61-88 09:44:00* Test Item Value Reference Range Interpretation Comments Arterial Blood pH (test code = 2744-1) 7.39 7.31-7.41 [facility] BudaArterial Blood Partial Pressure CO2 2017-12-24 09:44:00* Test Item Value Reference Range Interpretation Comments Arterial Blood Partial Pressure CO2 (test code = 2019-04) 43 41-51 [facility] BudaArterial Blood Partial Pressure O2 2017-12-24 09:44:00* Test Item Value Reference Range Interpretation Comments Arterial Blood Partial Pressure O2 (test code = 2019-04) 84 80-105 [facility] BudaArterial Blood MES20270-08-18 09:44:00* Test Item Value Reference Range Interpretation Comments Arterial Blood HCO3 (test code = 1960-4) 26 23-28 [facility] BudaArterial Blood Base Mkamtz4662-82-04 09:44:00* Test Item Value Reference Range Interpretation Comments Arterial Blood Base Excess (test code = 1925-7) 1.0 -2-3 [facility] BudaArterial Blood Oxygen Saturation 2017-12-24 09:44:00* Test Item Value Reference Range Interpretation Comments Arterial Blood Oxygen Saturation (test code = 2708-6) 96.0 95-98 [facility] – BudaFiO22018-04-18 09:44:00* Test Item Value Reference Range Interpretation Comments FiO2 (test code = FiO2) 32 PT WEARS 3LPM NASAL CANULACHI [facility]
--- NOTE | 2020-04-12 00:42 | Diagnostic Imaging Report ---
EXAM: CT Chest WITHOUT contrast INDICATION: ^n/v weakness COMPARISON: CT dated 12/02/2019. CT dated 07/10/2012. TECHNIQUE: Chest was scanned utilizing a multidetector helical scanner from the lung apex through the level of the adrenal glands without administration of IV contrast. Absence of intravenous contrast decreases sensitivity for detection of lymphadenopathy and vascular pathology. Coronal and sagittal reformations were obtained. Routine protocol was performed. IV CONTRAST: None COMPLICATIONS: None RADIATION DOSE: Total DLP: 500.58 mGy*cm Estimated effective dose: (DLP x 0.014 x size factor) mSv CTDIvol has been reviewed. It is below the limits set by the Radiation Protocol Committee (RPC). Dose modulation, iterative reconstruction, and/or weight based adjustment of the mA/kV was utilized to reduce the radiation dose to as low as reasonably achievable. FINDINGS: LINES/ TUBES: None. LUNGS AND AIRWAYS: Mild dependent atelectasis. Question mild centrilobular emphysema. PLEURA: The pleural spaces are clear. HEART AND MEDIASTINUM: The thyroid gland is normal. No mediastinal, hilar or axillary lymphadenopathy. The heart is normal in size. There is no pericardial effusion. Moderate coronary artery calcifications. Atherosclerotic disease of the aorta UPPER ABDOMEN: Significant calcified plaque in the imaged upper abdominal aorta has a similar appearance to 2012. BONES: Bones are demineralized. Age-indeterminate mild compression deformities of T7 vertebral body involving less than 10% of the vertebral body height. T11, and L1 compression deformities are unchanged. SOFT TISSUES: Unremarkable. IMPRESSION: No acute thoracic process. Signed by: Shay Zhang MD on 04/12/2020 12:39 AM
[2020-04-12] MEDS: SODIUM CHLORIDE 0.9% 1000ML 1,000 ML IV SCH ×3 (00:45→14:07)
[2020-04-12] MEDS ORDERED: MORPHINE SULFATE INJ 4 MG/ML INJ 1ML IV PRN ×2 (00:45)
--- NOTE | 2020-04-12 00:46 | NUR ---
ivf increased to 125cc/hr per md orders.
--- OUTSIDE RECORDS SUMMARY | 2020-04-12 01:12 | XMS REPORT | Clinical Summary ---
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 Heavy Equipment Operating Engineer Name Role Phone Andie San MD PCP [phone] Allergies Comments Active Allergy Reactions Severity Noted Date Adhesive Tape-Silicones 04/16/2017 Aspirin 04/16/2017 Azithromycin 04/16/2017 [place] Oil 04/16/2017 Codeine 04/16/2017 Prochlorperazine 04/16/2017 Propoxyphene 04/16/2017 N-Acetaminophen Propoxyphene 04/16/2017 Doxycycline 04/16/2017 Erythromycin 04/16/2017 Iodine 04/16/2017 Cephalexin 04/16/2017 Levofloxacin 04/16/2017 Pregabalin 04/16/2017 Mineral Oil 04/16/2017 Oxycodone 04/16/2017 Penicillins 04/16/2017 Oxycodone-Acetaminophen 04/16/2017 Oxycodone 04/16/2017 Mhq-Xjhghvfbi-Ojb Sulfa (Sulfonamide 04/16/2017 Antibiotics) Pentazocine Lactate 04/16/2017 [...] Advance Directives For more information, please contact: [phone] Patient Metrology Engineer Explanation Type Date Recorded Advance Directives, Living Will and Medical Power of Sausage Stuffer
--- OUTSIDE RECORDS SUMMARY | 2020-04-12 01:13 | XMS REPORT | Continuity of Care Document ---
Author Author [facility] Organization [facility] Address [address] [place] [address] Phone Unavailable Care Team Providers Care [employer] Electrical [employer]er Name Role Phone RUSTY ALAMO MD PCP TIARA RUSSELL Attphys Unavailable JASMEET SOUHEIL Attphys Unavailable JEWEL LEÓN Attphys Unavailable JASPER, LISA Attphys Unavailable Dennis VENCES Admphys Unavailable ALAMO, SOUHEIL Admphys Unavailable JASPER, LISA Admphys Unavailable Payers Payer Name Policy Type Policy Number Effective Date Expiration Date Shreyas Mercado Ppo [id number] 2017 00:00:00 [facility] Problems Condition Name Condition Details Condition Category Status Onset Date Resolution Date Last Treatment Date Treating Clinician Comments Source Intractable nausea and vomiting Intractable nausea and vomiting Dis ease Active 2017-04-17 00:00:00 Silvino Cheondoism Hypokalemia Hypokalemia Problem Active [facility] Hyponatremia Hyponatremia Problem Active [facility] Urinary tract infection UTI (urinary tract infection) Problem Active [facility] Vomiting Vomiting Problem Active [facility] Gastrointestinal hemorrhage GI bleeding Problem Active [facility] DEHYDRATION Problem Active [facility] Allergies, Adverse Reactions, Alerts Allergy Name Allergy Type Status Severity Reaction(s) Onset Date Inacti ve Date Treating Clinician Comments Source prochlorperazine edisylate DA Active SV 2020-02-08 00:00:0 0 [facility] prochlorperazine maleate DA Active SV 2020-02-08 00:00:00 [facility] oxycodone HCl DA Active SV 2020-02-08 00:00:00 [facility] propoxyphene HCl DA Active SV 2020-02-08 00:00:00 [facility] propoxyphene napsylate DA Active SV 2020-02-08 00:00:00 [facility] Pentazocine Lactate DA Active NV 2020-02-08 00:00:00 [facility] Penicillins DA Active SV 2020-02-08 00:00:00 [facility] Sulfa (Sulfonamide Antibiotics) DA Active SV 2020-02-08 00 :00:00 [facility] Shellfish DA Active SV 2020-02-08 00:00:00 [facility] iodine DA Active SV 2020-02-08 00:00:00 [facility] castor oil FA Active SV 2020-02-08 00:00:00 [facility] mineral oil DA Active SV 2020-02-08 00:00:00 [facility] codeine DA Active SV 2020-02-08 00:00:00 [facility] oxycodone DA Active SV 2020-02-08 00:00:00 [facility] aspirin DA Active SV 2020-02-08 00:00:00 [facility] acetaminophen DA Active SV 2020-02-08 00:00:00 [facility] cephalexin DA Active SV 2020-02-08 00:00:00 [facility] tetracycline DA Active SV 2020-02-08 00:00:00 [facility] doxycycline DA Active SV 2020-02-08 00:00:00 [facility] erythromycin base DA Active SV 2020-02-08 00:00:00 [facility] adhesive tape DA Active SV 2020-02-08 00:00:00 [facility] azithromycin DA Active SV 2020-02-08 00:00:00 [facility] tramadol DA Active 2020-02-08 00:00:00 [facility] levofloxacin DA Active SV 2020-02-08 00:00:00 [facility] bee pollen DA Active SV 2020-02-08 00:00:00 [facility] pregabalin DA Active SV 2020-02-08 00:00:00 [facility] HORSERADISH DA Active SV 2020-02-08 00:00:00 [facility] Iodine and Iodide Containing Produc Allergy to Substance Active S evere 2018-12-04 00:00:00 [facility] Eszopiclone Allergy to Substance Active 2018-12-02 00:00:00 [facility] Escitalopram Allergy to Substance Active 2018-12-02 00:00:0 0 [facility] bupivacaine DA Active NV 2018-03-24 00:00:00 [facility] Pentazocine Lactate DA Active NV 2018-03-24 00:00:00 [facility] Shellfish DA Active SV 2018-03-24 00:00:00 [facility] oxycodone DA Active SV 2018-03-24 00:00:00 [facility] aspirin DA Active NV 2018-03-24 00:00:00 [facility] doxycycline DA Active U 2018-03-24 00:00:00 [facility] bee pollen DA Active SV 2018-03-24 00:00:00 [facility] HORSERADISH DA Active U 2018-03-24 00:00:00 [facility] prochlorperazine edisylate DA Active U 2017-05-30 00:00:0 0 [facility] prochlorperazine maleate DA Active U 2017-05-30 00:00:00 [facility] oxycodone HCl DA Active U 2017-05-30 00:00:00 [facility] propoxyphene HCl DA Active U 2017-05-30 00:00:00 [facility] propoxyphene napsylate DA Active U 2017-05-30 00:00:00 [facility] Penicillins DA Active U 2017-05-30 00:00:00 [facility] Sulfa (Sulfonamide Antibiotics) DA Active U 2017-05-30 00 :00:00 [facility] iodine DA Active U 2017-05-30 00:00:00 [facility] castor oil FA Active U 2017-05-30 00:00:00 [facility] mineral oil DA Active U 2017-05-30 00:00:00 [facility] codeine DA Active U 2017-05-30 00:00:00 [facility] acetaminophen DA Active U 2017-05-30 00:00:00 [facility] cephalexin DA Active U 2017-05-30 00:00:00 [facility] tetracycline DA Active U 2017-05-30 00:00:00 [facility] erythromycin base DA Active U 2017-05-30 00:00:00 [facility] adhesive tape DA Active U 2017-05-30 00:00:00 [facility] azithromycin DA Active U 2017-05-30 00:00:00 [facility] tramadol DA Active U 2017-05-30 00:00:00 [facility] levofloxacin DA Active U 2017-05-30 00:00:00 [facility] pregabalin DA Active U 2017-05-30 00:00:00 [facility] Adhesive Tape-Silicones Propensity to adverse reactions to drug Activ e 2017-04-16 00:00:00 Sivlino Wheeler odchristian Aspirin Propensity to adverse reactions to drug Active 2017-04-16 00:00:00 Silvino Aquino Azithromycin Propensity to adverse reactions to drug Active 2017-04-16 00:00:00 Silvino mon Leake[place] Oil Propensity to adverse reactions to drug [...] adverse reactions to drug Active 2017-04-16 00:00:00 [facility] Erythromycin Propensity to adverse reactions to drug Active 2017-04-16 00:00:00 Silvino Suttonis t Iodine Propensity to adverse reactions to drug Active 2017-04-16 00:00:00 Silvino Aquino Cephalexin Propensity to adverse reactions to drug Active 2017-04-16 00:00:00 Silvino Suttonis t Levofloxacin Propensity to adverse reactions to drug Active 2017-04-16 00:00:00 Silvino Narayan t Pregabalin Propensity to adverse reactions to drug Active 2017-04-16 00:00:00 Silvino Narayan t Mineral Oil Propensity to adverse reactions to drug Active 2017-04-16 00:00:00 Silvino Suttonis t Oxycodone Propensity to adverse reactions to drug Active 2017-04-16 00:00:00 Silvino Narayan t Penicillins Propensity to adverse reactions to drug Active 2017-04-16 00:00:00 Silvino Narayan t Oxycodone-Acetaminophen Propensity to adverse reactions to drug Activ e 2017-04-16 00:00:00 Silvino Wheeler odchristian Oxycodone Fba-Ligvwwvgq-Hxa Propensity to adverse reactions to drug A ctive 2017-04-16 00:00:00 Silvino Meth odist Sulfa (Sulfonamide Antibiotics) Propensity to adverse reactions to drug Active 2017-04-16 00:00:00 Vinny mccrary Cheondoism Pentazocine Lactate Propensity to adverse reactions to drug Active 2017-04-16 00:00:00 Silvino Meth odist Tetracyclines Propensity to adverse reactions to drug Active 2017-04-16 00:00:00 Silvino Narayan t Tramadol Propensity to adverse reactions to drug Active 2017-04-16 00:00:00 Silvino Aquino Sucralfate Allergy to Substance Active Mild RASH, HIVES, BL ISTERS 2012-02-20 00:00:00 [facility] Oxycodone Allergy to Substance Active 2010-03-30 00:00:00 [facility] adhesive tape Allergy to Substance Active 2010-03-30 00:00: 00 [facility] Penicillin Allergy to Substance Active 2010-03-20 00:00:00 [facility] Sulfa (Sulfonamide Antibiotics) Allergy to Substance Active 2010-03-20 00:00:00 [facility] Iodine Allergy to Substance Active 2010-03-20 00:00:00 [facility] Leakey oil Allergy to Substance Active 2010-03-20 00:00:00 [facility] Mineral oil Allergy to Substance Active 2010-03-20 00:00:00 [facility] Prochlorperazine Allergy to Substance Active 2010-03-20 00: 00:00 [facility] Codeine Allergy to Substance Active 2010-03-20 00:00:00 [facility] Propoxyphene Allergy to Substance Active 2010-03-20 00:00:0 0 [facility] Pentazocine Allergy to Substance Active 2010-03-20 00:00:00 [facility] Aspirin Allergy to Substance Active 2010-03-20 00:00:00 [facility] Acetaminophen Allergy to Substance Active 2010-03-20 00:00: 00 [facility] Cephalexin Allergy to Substance Active 2010-03-20 00:00:00 [facility] Tetracycline Allergy to Substance Active 2010-03-20 00:00:0 0 [facility] Doxycycline Allergy to Substance Active 2010-03-20 00:00:00 [facility] Erythromycin base Allergy to Substance Active 2010-03-20 00 :00:00 [facility] Azithromycin Allergy to Substance Active 2010-03-20 00:00:0 0 [facility] Tramadol Allergy to Substance Active 2010-03-20 00:00:00 [facility] Oxiconazole Allergy to Substance Active 2010-03-20 00:00:00 [facility] Levofloxacin Allergy to Substance Active 2010-03-20 00:00:0 0 [facility] Pregabalin Allergy to Substance Active 2010-03-20 00:00:00 [facility] Social History Social Habit Start Date Stop Date Quantity Comments Source Sex Assigned At Ilana Aquino Alcohol intake 2017-04-16 00:00:00 2017-04-16 00:00:00 [...] mg tablet 2017-04-22 23:26:12 Ye s 20mg Q.[id number] Take 20 mg by mouth 3 (three) times a day. Silvino Aquino doxepin (SINEquan) 50 MG capsule 2017-04-22 23:26:12 Yes 50mg QD Take 50 mg by mouth daily. Silvino Aquino hydromorPHONE (DILAUDID) 8 MG tablet 2017-04-22 23:26:12 Yes 8mg Q.[id number] Take 8 mg by mouth 3 (three) [...] 0.5-2.5 mg/mL nebulizer 2017-04-22 23:26:12 Yes 3mL Q.[id number] Take 3 mL by nebulization 3 (three) times a day. Silvino Aquino fluticasone-salmeterol (ADVAIR) 250-50 mcg/dose DISKUS 2017-04-22 23:26:12 Yes 1{puff} Q.5D Inhale 1 puff 2 (two) times a day. Silvino Aquino Albuterol Sulfate (Proair Hfa Inhaler*) 8.5 Gm Inh Alb uterol Sulfate (Proair Hfa Inhaler*) 8.5 Gm Inh Yes As Needed [facility] Atorvastatin Calcium (Lipitor) 40 Mg Tablet Atorvastat in Calcium (Lipitor) 40 Mg Tablet Yes 40 Daily [facility] Cetirizine Hcl (Zyrtec) 10 Mg Capsule Cetirizine Hcl (Zyrtec) 10 Mg Capsule Yes 10 Bedtime [facility] Clopidogrel Bisulfate (Plavix) 75 Mg Tablet Clopidogre l Bisulfate (Plavix) 75 Mg Tablet Yes 75 Daily [facility] Cyclobenzaprine Hcl (Flexeril) 5 Mg Tablet Cyclobenzap rine Hcl (Flexeril) 5 Mg Tablet Yes 10 Four Times Daily [facility] Cyclosporine (Restasis) 1 Each Droperette Cyclosporine (Restasis) 1 Each Droperette Yes 1 Twice A Day [facility] Dicyclomine Hcl 20 Mg Tablet Dicyclomine Hcl 20 Mg Tablet Y es 20 Tid With Meals [facility] Diltiazem Hcl (Diltiazem 24HR Er) 180 Mg Capcr Diltiaz em Hcl (Diltiazem 24HR Er) 180 Mg Capcr Yes 180 Daily [facility] Doxepin Hcl 25 Mg Capsule Doxepin Hcl 25 Mg Capsule Yes 100 Bedtime [facility] Epipen Epipen Yes As Needed [facility] Furosemide (Lasix) 40 Mg Tablet Furosemide (Lasix) 40 Mg Tablet Yes 40 Daily as needed for Shortness Of Breath [facility] Hydromorphone Hcl (Dilaudid) 2 Mg Tab Hydromorphone Hcl (Dilaudid) 2 Mg Tab Yes 8 Every 8 Hours [facility] Ipratropium/Albuterol Sulfate (Iprat-Albut 0.5-3(2.5) Mg/3 Ml) 3 Ml Ampul.neb Ipratropium/Albuterol Sulfate (Iprat-Albut 0.5-3(2.5) Mg/3 Ml) 3 Ml Ampul.neb Yes 3 Four Times Daily [facility] Losartan Potassium 100 Mg Tablet Losartan Potassium 100 Mg Tablet Yes 100 Daily [facility] Meclizine Hcl 12.5 Mg Tablet Meclizine Hcl 12.5 Mg Tablet Y es 25 Bedtime [facility] Metformin Hcl (Metformin Hcl Er) 500 Mg Tab.er.24 Metf ormin Hcl (Metformin Hcl Er) 500 Mg Tab.er.24 Yes 500 Daily [facility] Nitroglycerin 0.4 Mg Tab.subl Nitroglycerin 0.4 Mg Tab.subl Yes .4 As Needed [facility] Ondansetron (Zofran Odt) 4 Mg Tab.rapdis Ondansetron ( Zofran Odt) 4 Mg Tab.rapdis Yes 4 Three Times A Day [facility] Proair Proair Yes As Needed [facility] Rabeprazole Sodium (Aciphex) 20 Mg Tablet.dr Dill le Sodium (Aciphex) 20 Mg Tablet. Yes 20 Daily [facility] Sumatriptan Succinate (Imitrex) 25 Mg Tablet Sumatript an Succinate (Imitrex) 25 Mg Tablet Yes 25 Daily as needed for Headache [facility] Triamterene/Hctz (Triamterene-Hctz 37.5-25 Mg Tb) 1 Ea Tab Triamterene/Hctz (Triamterene-Hctz 37.5-25 Mg Tb) 1 Ea Tab Yes 1 [facility] Zyrtec-Ceterizine Zyrtec-Ceterizine Yes 10 Bedt yecenia [facility] Albuterol Sulfate 0.63 Mg/3 Ml Vial.neb, 1 Inh Inhalat ion Albuterol Sulfate 0.63 Mg/3 Ml Vial.neb, 1 Inh Inhalation 2019-11-21 00:00:00 No 1 Four Times Daily [facility] Ipratropium [place] 0.2 Mg/1 Ml Solution, 0.5 Mg Inhal ation Ipratropium [place] 0.2 Mg/1 Ml Solution, 0.5 Mg Inhalation 2019-11-21 00:00:00 No .5 Four Times Daily [facility] Albuterol Sulfate 4 Mg Tab.sr.12h, 3 Mg Oral Albuterol Sulfate 4 Mg Tab.sr.12h, 3 Mg Oral 2018-12-02 00:00:00 No 3 Four Times [place] [facility] Doxepin Hcl 50 Mg Capsule, 50 Mg Oral Doxepin Hcl 50 Mg Capsule, 50 Mg Oral 2018-12-02 00:00:00 No 50 Bedtime [facility] Hydroco/Apap , Hydroco/Apap , 2018-12-02 00:00:00 No Every 4 Hrs Prn [facility] Morphine Sulfate 60 Mg Tablet.er, 30 Mg Oral Morphine Sulfate 60 Mg Tablet.er, 30 Mg Oral 2018-12-02 00:00:00 No 30 Three Times A Day [facility] Xanax-Alprozalam , 1 Mg Xanax-Alprozalam , 1 Mg 2018-12-02 00:00 :00 No 1 Bedtime [facility] Zofran-Ondesteron , 4 Mg Zofran-Ondesteron , 4 Mg 2018-12-02 00: 00:00 No 4 Three Times A Day [facility] Cyclobenzaprine Hcl (Flexeril) 10 Mg Tablet, 10 Mg Ora Cyclobenzaprine Hcl (Flexeril) 10 Mg Tablet, 10 Mg Oral 2018-04-16 00:00:00 No 10 Three Times A Day [facility] Olmesartan Medoxomil (Benicar) 20 Mg Tablet, 20 Mg Ora l Olmesartan Medoxomil (Benicar) 20 Mg Tablet, 20 Mg Oral 2018-04-12 00:00:00 No 2 0 Daily [facility] Rabeprazole Sodium (Aciphex) 20 Mg Tablet.dr, 20 Mg Or al Rabeprazole Sodium (Aciphex) 20 Mg Tablet.dr, 20 Mg Oral 2018-04-12 00:00:00 No 20 Twice A Day [facility] Procedures Procedure Date / Time Performed Performing Clinician [facility] e X-ray of chest, two views 2019-12-03 00:00:00 ARIS VERMA [facility] CT of abdomen and pelvis without contrast 2019-12-02 00:00:0 0 JAZ HONEYCUTT [facility] Plan of Care Planned Activity Planned Date Details Comments Source Future Scheduled Test 2020-04-08 00:00:00 INFLUENZA VACCINE [code = INFLUENZA VACCINE] Silvino Aquino Scheduled Test 2006 00:00:00 BREAST CANCER SCRE ENING [code = BREAST CANCER SCREENING] [facility] Future Scheduled Test 2006 00:00:00 COLONOSCOPY SCREEN ING [code = COLONOSCOPY SCREENING] [facility] Future Scheduled Test 2006 00:00:00 SHINGLES VACCINES (#1) [code = SHINGLES VACCINES (#1)] [facility] Scheduled Test 1977 00:00:00 Screening for anthony gnant neoplasm of cervix (procedure) [code = 290058853] [facility] Encounters Start Date/Time End Date/Time Encounter Type Admission Type Attendi [facility] Care Department Encounter ID Source 2019-12-04 11:05:00 2019-12-07 12:01:00 Discharged Inpatient 1 [facility] [id number] [facility] 2019-11-19 15:55:00 2019-11-23 13:00:00 Discharged Inpatient 1 JASMEET [facility] [id number] [facility] 2019-07-31 09:13:00 2019-07-31 09:13:00 Emergency E [facility] [place] [facility] 2018-12-02 22:53:00 2018-12-09 13:33:00 Discharged Inpatient 1 JASMEET [facility] [id number] [facility] 2018-05-28 09:38:00 2018-05-28 09:38:00 Registered Clinic 3 [facility]EL [facility] [id number] [facility] 2018-04-12 21:45:00 2018-04-17 12:47:00 Discharged Inpatient 1 LISA [facility] [id number] [facility] 2017-12-24 09:19:00 2017-12-24 09:19:00 Registered Clinic [facility] [id number] [facility] Results Test Description Test Time Test Comments Results Result Comments Source CT CHEST WO 2020-04-12 00:21:00 [facility] [address] [address] Patient Name: KATIANA GOLDMAN MR #: [id number] : 1955 Age/Sex: 64/F Req #: [id number] Adm Physician: Ordered by: TIARA RUSSELL DO Report #: [id number] Location: ER Room/Bed: Procedure: [id number] CT/CT CHEST WO Exam Date: 04/11/20 Exam Time: 2330 REPORT STATUS: Signed EXAM: CT Chest WITHOUT contrast INDICATION: n/v weakness COMPARISON: CT dated 12/02/2019. CT dated 07/10/2012. TECHNIQUE: Chest was scanned utilizing a multidetector helical scanner from the lung apex through the level of the adrenal glands without administration of IV contrast. Absence of intravenous contrast decreases sensitivity for detection of lymphadenopathy and vascular pathology. Coronal and sagittal reformations were obtained. Routine protocol was performed. IV CONTRAST: None COMPLICATIONS: None RADIATION DOSE: Total DLP: 500.58 mGy*cm Estimated effective dose: (DLP x 0.014 x size factor) mSv CTDIvol has been reviewed. It is below the limits set by the Radiation Protocol Committee (RPC). Dose modulation, iterative reconstruction, and/or weight based adjustment of the mA/kV was utilized to reduce the radiation dose to as low as reasonably achievable. FINDINGS: LINES/ TUBES: None. LUNGS AND AIRWAYS: Mild dependent atelectasis. Question mild centrilobular emphysema. PLEURA: The pleural spaces are clear. HEART AND MEDIASTINUM: The thyroid gland is normal. No mediastinal, hilar or axillary lymphadenopathy. The heart is normal in size. There is no pericardial effusion. Moderate coronary artery calcifications. Atherosclerotic disease of the aorta UPPER ABDOMEN: Significant calcified plaque in the imaged upper abdominal aorta has a similar appearance to 2012. BONES: Bones are demineralized. Age-indeterminate mild compression deformities of T7 vertebral body involving less than 10% of the vertebral body height. T11, and L1 compression deformities are unchanged. SOFT TISSUES: Unremarkable. IMPRESSION: No acute thoracic process. Signed by: Anand Zhang MD on 04/12/2020 12:39 AM Dictated By: ANAND ZHANG MD Transcribed By: LENI on 04/12/2038 COPY TO: TIARA RUSSELL DO CHEST SINGLE (PORTABLE) 2020-04-11 23:53:[address] [address] Patient Name: KATIANA GOLDMAN MR #: [id number] : 1955 Age/Sex: 64/F Req #: [id number] Adm Physician: Ordered by: TIARA RUSSELL DO Report #: [id number] Location: ER Room/Bed: Procedure: [id number] DX/CHEST SINGLE (PORTABLE) Exam Date: 04/11/20 Exam Time: 5 REPORT STATUS: Signed EXAMINATION: CHEST SINGLE (PORTABLE) [...] 11:55 PM Dictated By: ANAND ZHANG MD 55 Transcribed By: LENI on 04/11/202354 COPY TO: DREWTIARA Novel Coronavirus 2019 Inhouse 2020-02-09 09:47:00 Test Item Novel Coronavirus 2019 Inhouse (test code = COVNONPUI) Negative Negative Positive results are indicative of the presence iiINHV-OuE-5 RNA, clinical correlation with patient historyand other [...] for the identification of SARS-CoV-2 RNA usingthe Agu[employer] M2000 System under the FDA Emergency UseAuthorization. The testing is performed by personneltrained in the procedures for the Aguirre M2000 moleculardiagnostic SARS-CoV-2 assay in vitro. Testing Criteria: Pre-procedure ScreeningNovel Coronavirus 2019 Inhouse 2020-02-09 09:46:00* Test Item Value Reference Range Interpretation Comments Novel Coronavirus 2019 Inhouse (test code = COVNONPUI) Negative Negative Testing Criteria: Pre-procedure ScreeningCOMPREHENSIVE METABOLIC [id number] 13:51:00* Test Item Value Reference Range Interpretation [...] = ALKP) 93 U/L 38-126 N PROTHROMBIN [id number] 13:43:00* Test Item Value Reference Range Interpretation [...] ANTICOAGULANT/ANTI PLT MEDICATION: Cl opidogrel (Anti-PLT)THROMBOPLASTIN TIME [id number] 13:43:00* Test Item Value Reference Range Interpretation Comments THROMBOPLASTIN TIME PARTIAL (test code = PTT) 39.5 SECONDS 23.4-37. 0 H Therapeutic Range for Heparin EFFECTIVE 03/17/13 Heparin IU/mL aPTT Seconds0.3 64.30.7 88.8 IS PATIENT ON ANTICOAGULANTS ? YESLIST ANTICOAGULANT/ANTI PLT MEDICATION: Cl opidogrel (Anti-PLT)CBC W/AUTO [id number] 13:33:00* Test Item Value Reference Range Interpretation [...] BA#) 0.06 x10 3/uL 0.0-0.1 N Bedside [id number] 13:44:00* Test Item Value Reference Range Interpretation Comments Bedside Glucose (test code = 35210-6) 104 70-120 Meter ID: [id number] [facility] Cells [id number] 09:08:00* Test Item Value Reference Range Interpretation Comments Differential Total Cells Counted (test code = Differen tial Total Cells Counted) 100 [facility] (Manual)2019-12-06 09:08:00 * Test Item Value Reference Range Interpretation Comments Neutrophils % (Manual) (test code = 65415-7) 92 40-74 H [facility]ymph[facility] % (Manual)2019-12-06 09:08:00 * Test Item Value Reference Range Interpretation Comments Lymphocytes % (Manual) (test code = 737-7) 5 19-48 L [facility] % (Manual)2019-12-06 09:08:00* Test Item Value Reference Range Interpretation Comments Monocytes % (Manual) (test code = 744-3) 3 3.4-9.0 L [facility]ate[facility] [id number] 09:08:00* Test Item Value Reference Range Interpretation Comments Platelet Estimate (test code = 25929-9) ADEQUATE [facility] Morphology [id number] 09:08:00* Test Item Value Reference Range Interpretation Comments Platelet Morphology Comment (test code = 77530-6) NORMAL [facility]cos[facility] Cell Morphology [id number] 09:08:00* Test Item Value Reference Range Interpretation Comments Red Cell Morphology Comment (test code = 6742-1) [facility]AL [facility] [id number] 05:32:00* Test Item Value Reference Range Interpretation Comments Sodium Level (test code = 2951-2) 134 136-145 L [facility] MarcosPotassium Elvts6461-33-98 05:32:00* Test Item Value Reference Range Interpretation Comments Potassium Level (test code = 2823-3) 5.0 3.5-5.1 [facility]cosChloride Csveu9204-54-32 05:32:00* Test Item Value Reference Range Interpretation Comments Chloride Level (test code = 2075-0) 101 98-107 [facility]cosCarbon Dioxide Ollnh0117-31-20 05:32:00* Test Item Value Reference Range Interpretation Comments Carbon Dioxide Level (test code = 2028-9) 26 22-29 [facility] MarcosAnion Zid7336-56-67 05:32:00* Test Item Value Reference Range Interpretation Comments Anion Gap (test code = 93858-1) 12.0 8-16 [facility]cosBlood Urea Ikfzpovc0681-02-86 05:32:00* Test Item Value Reference Range Interpretation Comments Blood Urea Nitrogen (test code = 3094-0) 8 7-26 [facility]cosCreatinine2020-03-30 05:32:00* Test Item Value Reference Range Interpretation Comments Creatinine (test code = 2160-0) 0.74 0.57-1.11 [facility]cosBUN/Creatinine Ksbfi8027-56-91 05:32:00* Test Item Value Reference Range Interpretation Comments BUN/Creatinine Ratio (test code = 3097-3) 11 6-25 [facility] MarcosEstimat Glomerular Filtration Rate 2019-12-06 05:32:00* Test Item Value Reference Range Interpretation Comments Estimat Glomerular Filtration Rate (test code = 723539582) > 60 >60 Ranges were taken from the National Kidney Disease Education Program and the [facility] Kidney Foundation literature.Reference ranges:60 or greater: Dhyofq73-59 ( for 3 consecutive months): Chronic kidney disease 15 or less: Kidney failureChristus Santa Rosa Hospital – San MarcosGlucose Qxrfq8429-51-57 05:32:00* Test Item Value Reference Range Interpretation Comments Glucose Level (test code = IWV6919) 113 74-118 [facility]cosCalcium Gmruy2063-08-21 05:32:00* Test Item Value Reference Range Interpretation Comments Calcium Level (test code = 47106-2) 8.5 8.4-10.2 [facility]cosProthrombin Rvom6435-04-18 05:30:00* Test Item Value Reference Range Interpretation Comments Prothrombin Time (test code = 5902-2) 12.7 11.9-14.5 [facility] MarcosProthromb Time International Ratio 2019-12-06 05:30:00* Test Item Value Reference Range Interpretation Comments Prothromb Time International Ratio (test code = 6301-6) 0.90 Oral Anticoagulant Therapy INR Values:1. Low Intensity Therapy 1.5 - 2.02 . Moderate Intensity Therapy 2.0 - 3.03. High Intensity Therapy(1) 2.5 - 3. 54. High Intensity Therapy(2) 3.0 - 4.05. Panic Value INR > 5.0 [facility] MarcosActivated Partial Thromboplast Time 2019-12-06 05:30:00* Test Item Value Reference Range Interpretation Comments Activated Partial Thromboplast Time (test code = 21065-1) 33.3 23.8-35.5 [facility]cosWhite Blood Iramd6131-26-90 05:22:00* Test Item Value Reference Range Interpretation Comments White Blood Count (test code = 6690-2) 6.67 4.8-10.8 [facility] MarcosRed Blood Ekpif3132-41-93 05:22:00* Test Item Value Reference Range Interpretation Comments Red Blood Count (test code = 789-8) 3.32 3.6-5.1 L [facility]cosHemoglobin2020-03-30 05:22:00* Test Item Value Reference Range Interpretation Comments Hemoglobin (test code = 53209-0) 10.0 12.0-16.0 L [facility]cosHematocrit2020-03-30 05:22:00* Test Item Value Reference Range Interpretation Comments Hematocrit (test code = 4544-3) 31.1 34.2-44.1 L [facility] MarcosMean Corpuscular Khxoqi7232-33-27 05:22:00* Test Item Value Reference Range Interpretation Comments Mean Corpuscular Volume (test code = 787-2) 93.7 81-99 [facility]cosMean Corpuscular Jfccxlgslh5417-03-83 05:22:00* Test Item Value Reference Range Interpretation Comments Mean Corpuscular Hemoglobin (test code = 785-6) 30.1 28-32 [facility]cosMean Corpuscular Hemoglobin Concent 2019-12-06 05:22:00* Test Item Value Reference Range Interpretation Comments Mean Corpuscular Hemoglobin Concent (test code = 786-4) 32.2 31-35 [facility]cosRed Cell Distribution Xwnsk0268-07-43 05:22:00* Test Item Value Reference Range Interpretation Comments Red Cell Distribution Width (test code = 98766-5) 12.7 11.7 -14.4 [facility] MarcosPlatelet Uqcti5431-75-85 05:22:00* Test Item Value Reference Range Interpretation Comments Platelet Count (test code = 777-3) 255 140-360 [facility]cosNeutrophils (%) (Auto)2019-12-06 05:22:00 * Test Item Value Reference Range Interpretation Comments Neutrophils (%) (Auto) (test code = 79316-0) 87.0 38.7-80.0 H [facility] MarcosLymphocytes (%) (Auto)2019-12-06 05:22:00 * Test Item Value Reference Range Interpretation Comments Lymphocytes (%) (Auto) (test code = 736-9) 7.8 18.0-39.1 L [facility]cosMonocytes (%) (Auto)2019-12-06 05:22:00* Test Item Value Reference Range Interpretation Comments Monocytes (%) (Auto) (test code = 5905-5) 3.0 4.4-11.3 L [facility]cosEosinophils (%) (Auto)2019-12-06 05:22:00 * Test Item Value Reference Range Interpretation Comments Eosinophils (%) (Auto) (test code = 713-8) 1.8 0.0-6.0 [facility]cosBasophils (%) (Auto)2019-12-06 05:22:00* Test Item Value Reference Range Interpretation Comments Basophils (%) (Auto) (test code = 706-2) 0.1 0.0-1.0 [facility] MarcosIM GRANULOCYTES %2019-12-06 05:22:00* Test Item Value Reference Range Interpretation Comments IM GRANULOCYTES % (test code = IM GRANULOCYTES %) 0.3 0.0- 1.0 [facility]cosNeutrophils # (Auto)2019-12-06 05:22:00* Test Item Value Reference Range Interpretation Comments Neutrophils # (Auto) (test code = 751-8) 5.8 2.1-6.9 [facility]cosLymphocytes # (Auto)2019-12-06 05:22:00* Test Item Value Reference Range Interpretation Comments Lymphocytes # (Auto) (test code = 51840-9) 0.5 1.0-3.2 L [facility]cosMonocytes # (Auto)2019-12-06 05:22:00* Test Item Value Reference Range Interpretation Comments Monocytes # (Auto) (test code = 742-7) 0.2 0.2-0.8 [facility]cosEosinophils # (Auto)2019-12-06 05:22:00* Test Item Value Reference Range Interpretation Comments Eosinophils # (Auto) (test code = 711-2) 0.1 0.0-0.4 [facility]cosBasophils # (Auto)2019-12-06 05:22:00* Test Item Value Reference Range Interpretation Comments Basophils # (Auto) (test code = 704-7) 0.0 0.0-0.1 [facility] MarcosAbsolute Immature Granulocyte (auto 2019-12-06 05:22:00* Test Item Value Reference Range Interpretation Comments Absolute Immature Granulocyte (auto (london t code = Absolute Immature Granulocyte (auto) 0.02 0-0.1 [facility] MarcosTroponin D7782-68-14 20:00:00* Test Item Value Reference Range Interpretation Comments Troponin I (test code = WZH9028) 0.074 0-0.300 [facility] MarcosC-Reactive Vhmtpfl9000-31-75 18:33:00* Test Item Value Reference Range Interpretation Comments C-Reactive Protein (test code = 1988-5) 4 0-10 Performed at: [facility] [address] [id number] Director: Pepe Kennedy MD, Phone: [phone] Santa Rosa Hospital – San MarcosCHEST SINGLE (PORTABLE)2019-12-05 08:46:00 [place] [address] Patient Name: KATIANA GOLDMAN MR #: [id number] : 1955 Age/Sex: 64/F Req #: [id number] Adm Physician: RUSTY ALAMO MD Ordered by: CHUN MORE MD Report #: [id number] Location: MED/SURG2 Room/Bed: [facility] Procedure: [id number] DX/CHEST SINGLE (PORTABLE) Exam [...] AM Dictated By: MELODY CERNA MD, MD Transcribed By: LENI on 12/05/19 0848 COPY TO: CHUN MORE MD Total Gnflquieh2693-34-65 03:56:00* Test Item Value Reference Range Interpretation Comments Total Bilirubin (test code = 1975-2) 0.1 0.2-1.2 L [facility] MarcosAspartate Amino Transf (AST/SGOT) 2019-12-05 03:56:00* Test Item Value Reference Range Interpretation Comments Aspartate Amino Transf (AST/SGOT) (test code = Aspartate Amino Transf (AST/SGOT)) 20 5-34 [facility] MarcosAlanine Aminotransferase (ALT/SGPT) 2019-12-05 03:56:00* Test Item Value Reference Range Interpretation Comments Alanine Aminotransferase (ALT/SGPT) (test code = 1742-6) 14 0-55 [facility] MarcosTotal Okiievk6602-10-05 03:56:00* Test Item Value Reference Range Interpretation Comments Total Protein (test code = 2885-2) 5.1 6.5-8.1 L [facility] MarcosAlbumin2020-03-29 03:56:00* Test Item Value Reference Range Interpretation Comments Albumin (test code = 1751-7) 2.9 3.5-5.0 L [facility] MarcosGlobulin2020-03-29 03:56:00* Test Item Value Reference Range Interpretation Comments Globulin (test code = 07420-8) 2.2 2.3-3.5 L [facility] MarcosAlbumin/Globulin Vbald9283-95-34 03:56:00 * Test Item Value Reference Range Interpretation Comments Albumin/Globulin Ratio (test code = 1759-0) 1.3 0.8-2.0 [facility] MarcosAlkaline Lljzvcyiccj9392-04-79 03:56:00* Test Item Value Reference Range Interpretation Comments Alkaline Phosphatase (test code = 6768-6) 60 40-150 [facility] MarcosB-Type Natriuretic Qhypxpu6880-11-09 13:09:00* Test Item Value Reference Range Interpretation Comments B-Type Natriuretic Peptide (test code = 21767-1) 200.7 0-100 H [facility] MarcosInfluenza Virus Types A,B Antigen 2019-12-04 12:07:00* Test Item Value Reference Range Interpretation Comments Influenza Virus Types A,B Antigen (test code = 58593-6) NEGATIVE NEGATIVE [facility] MarcosFerritin2020-03-27 18:08:00* Test Item Value Reference Range Interpretation Comments Ferritin (test code = 2276-4) 264.04 4.63-204.00 H [facility] MarcosCreatine Kinase GM3069-77-48 17:16:00* Test Item Value Reference Range Interpretation Comments Creatine Kinase MB (test code = 72525-1) 3.50 0-5.0 [facility] MarcosCreatine Akricp8403-14-09 17:03:00* Test Item Value Reference Range Interpretation Comments Creatine Kinase (test code = 2157-6) 75 29-168 [facility]cosCHEST 2 RLUWY2077-14-27 15:21:00 [facility] [address] [place] [address] Patient Name: KATIANA GOLDMAN MR #: [id number] : 11/1955 Age/Sex: 64/F Req #: [id number] Adm Physician: RUSTY ALAMO MD Ordered by: DARNELL VERMA MD Report #: [id number] Location: MED/SURG2 Room/Bed: [facility] Procedu re: [id number] DX/CHEST 2 VIEWS Exam Date: 12/03/19 E [...] :25 PM Dictated By: AMY BRANCH MD 1525 Transcribed By: LENI on 12/03/19 1525 COPY TO: DARNELL VEGA MD Urine YKL2861-51-82 02:15:00* Test Item Value Reference Range Interpretation Comments Urine WBC (test code = 5821-4) 11-20 0-5 H [facility] MarcosUrine CYV6867-85-32 02:15:00* Test Item Value Reference Range Interpretation Comments Urine RBC (test code = 72161-9) 6-10 0-5 H [facility] MarcosUrine Klqcqgjt2815-40-98 02:15:00* Test Item Value Reference Range Interpretation Comments Urine Bacteria (test code = 89639-7) MODERATE NONE H [facility] MarcosUrine Epithelial Ttbou8168-97-86 02:15:00 * Test Item Value Reference Range Interpretation Comments Urine Epithelial Cells (test code = 37544-1) FEW NONE [facility] MarcosUrine Transitional Epithelial Cells 2019-12-03 02:15:00* Test Item Value Reference Range Interpretation Comments Urine Transitional Epithelial Cells (test code = 8249-5) FEW NONE H [facility] MarcosUrine Renal Epithelial Jfwxm2663-46-61 02:15:00* Test Item Value Reference Range Interpretation Comments Urine Renal Epithelial Cells (test code = 51685-3) FEW NON E H [facility] MarcosUrine Gbjxp6162-37-26 02:11:00* Test Item Value Reference Range Interpretation Comments Urine Color (test code = 5778-6) YELLOW YELLOW [facility] MarcosUrine Dhqbcqg8105-96-39 02:11:00* Test Item Value Reference Range Interpretation Comments Urine Clarity (test code = 47299-3) CLEAR CLEAR [facility] MarcosUrine Specific Vtgspjh3439-44-77 02:11:00 * Test Item Value Reference Range Interpretation Comments Urine Specific [place] (test code = 5811-5) 1.020 1.010-1.02 5 [facility] MarcosUrine mU2966-73-13 02:11:00* Test Item Value Reference Range Interpretation Comments Urine pH (test code = 10095-6) 6.5 5-7 [facility] MarcosUrine Leukocyte Sugtsgai6603-82-78 02:11:00* Test Item Value Reference Range Interpretation Comments Urine Leukocyte Esterase (test code = 5799-2) NEGATIVE NEGATIVE [facility] MarcosUrine Yddbvze0941-55-97 02:11:00* Test Item Value Reference Range Interpretation Comments Urine Nitrite (test code = 74463-5) NEGATIVE NEGATIVE [facility] MarcosUrine Mmcwvin4683-42-20 02:11:00* Test Item Value Reference Range Interpretation Comments Urine Protein (test code = 5804-0) NEGATIVE NEGATIVE [facility] MarcosUrine Glucose (UA)2019-12-03 02:11:00* Test Item Value Reference Range Interpretation Comments Urine Glucose (UA) (test code = 2349-9) NEGATIVE NEGATIVE [facility] MarcosUrine Ifsnywb8247-83-83 02:11:00* Test Item Value Reference Range Interpretation Comments Urine Ketones (test code = 50098-3) NEGATIVE NEGATIVE [facility] MarcosUrine Jawsjtnrelyr3293-94-75 02:11:00* Test Item Value Reference Range Interpretation Comments Urine Urobilinogen (test code = 15172-4) 0.2 0.2-1 [facility]cosUrine Tnfwqjcvu8270-64-21 02:11:00* Test Item Value Reference Range Interpretation Comments Urine Bilirubin (test code = 1978-6) NEGATIVE NEGATIVE [facility] MarcosUrine Ltwxk8561-15-56 02:11:00* Test Item Value Reference Range Interpretation Comments Urine Blood (test code = 01718-6) NEGATIVE NEGATIVE [facility] San MarcosCT ABDOMEN/PELVIS LQ6328-46-03 23:40:00 [facility] [address] [place] [address] Patient Name: KATIANA GOLDMAN MR #: [id number] : 11/1955 Age/Sex: 64/F Req #: [id number] Adm Physician: Ordered by: JAZ HONEYCUTT MD Report #: [id number] Location: ER Room/Bed: Procedure: [id number] CT/CT ABDOMEN/PELVIS WO Exam Date: 12/02/19 Exam Time: 2245 REPORT STATUS: Sig arabella EXAM: CT Abdomen [...] reformations were obtained. Routine protocol was per [facility]. IV CONTRAST: None ORAL CONTRAST: Gastrografin COMPLICATIONS: [...] Dense calcif ications in the aorta and [place] iliac arteries. PERITONEUM / RETROPERITO NEUM: No [...] 11:46 PM Dictated By: Anna PAYNE DO 23 46 Transcribed By: LENI on 12/02/19 3449 COPY TO: JAZ HONEYCUTT MD Amylase Awcjj2069-45-66 22:04:00* Test Item Value Reference Range Interpretation Comments Amylase Level (test code = 1798-8) 48 25-125 [facility] MarcosLipase2020-03-26 22:04:00* Test Item Value Reference Range Interpretation Comments Lipase (test code = 3040-3) 7 8-78 L [facility] MarcosBlood Goclpmz4914-59-65 14:31:00* Test Item Value Reference Range Interpretation Comments Blood Culture (test code = 06570037) NO GROWTH AFTER 5 DAYS, FINAL REPORT [facility]odium Qhztb0109-78-39 06:19:00* Test Item Value Reference Range Interpretation Comments Sodium Level (test code = 2951-2) 136 136-145 [facility]cosPotassium Vihfo1493-55-33 06:19:00* Test Item Value Reference Range Interpretation Comments Potassium Level (test code = 2823-3) 4.1 3.5-5.1 [facility] MarcosChloride Befcg1344-08-24 06:19:00* Test Item Value Reference Range Interpretation Comments Chloride Level (test code = 2075-0) 110 98-107 H [facility] MarcosCarbon Dioxide Ddzit5211-18-00 06:19:00* Test Item Value Reference Range Interpretation Comments Carbon Dioxide Level (test code = 2028-9) 23 22-29 [facility] MarcosAnion Ccy1429-22-91 06:19:00* Test Item Value Reference Range Interpretation Comments Anion Gap (test code = 49955-2) 7.1 8-16 L [facility] MarcosBlood Urea Gjyygzhq9211-91-89 06:19:00* Test Item Value Reference Range Interpretation Comments Blood Urea Nitrogen (test code = 3094-0) 8 7-26 [facility] MarcosCreatinine2020-03-17 06:19:00* Test Item Value Reference Range Interpretation Comments Creatinine (test code = 2160-0) 0.63 0.57-1.11 [facility]cosBUN/Creatinine Ruaht5423-81-95 06:19:00* Test Item Value Reference Range Interpretation Comments BUN/Creatinine Ratio (test code = 3097-3) 13 6-25 [facility] MarcosEstimat Glomerular Filtration Rate 2019-11-23 06:19:00* Test Item Value Reference Range Interpretation Comments Estimat Glomerular Filtration Rate (test code = 760176236) > 60 >60 Ranges were taken from the National Kidney Disease Education Program and the [facility] Kidney Foundation literature.Reference ranges:60 or greater: Gckfih76-37 ( for 3 consecutive months): Chronic kidney disease 15 or less: Kidney failureChristus Santa Rosa Hospital – San MarcosGlucose Lkusm7342-71-77 06:19:00* Test Item Value Reference Range Interpretation Comments Glucose Level (test code = ZYU9568) 78 74-118 [facility] MarcosCalcium Lxtxv4677-09-83 06:19:00* Test Item Value Reference Range Interpretation Comments Calcium Level (test code = 32511-5) 8.4 8.4-10.2 [facility] MarcosWhite Blood Msvqx0636-79-35 05:58:00* Test Item Value Reference Range Interpretation Comments White Blood Count (test code = 6690-2) 8.89 4.8-10.8 [facility] MarcosRed Blood Bmhlx0128-25-27 05:58:00* Test Item Value Reference Range Interpretation Comments Red Blood Count (test code = 789-8) 3.44 3.6-5.1 L [facility] MarcosHemoglobin2020-03-17 05:58:00* Test Item Value Reference Range Interpretation Comments Hemoglobin (test code = 76424-0) 10.3 12.0-16.0 L [facility] MarcosHematocrit2020-03-17 05:58:00* Test Item Value Reference Range Interpretation Comments Hematocrit (test code = 4544-3) 32.1 34.2-44.1 L [facility] MarcosMean Corpuscular Jgseel6424-49-22 05:58:00* Test Item Value Reference Range Interpretation Comments Mean Corpuscular Volume (test code = 787-2) 93.3 81-99 [facility] MarcosMean Corpuscular Isiihmzhwe5175-66-89 05:58:00* Test Item Value Reference Range Interpretation Comments Mean Corpuscular Hemoglobin (test code = 785-6) 29.9 28-32 [facility] MarcosMean Corpuscular Hemoglobin Concent 2019-11-23 05:58:00* Test Item Value Reference Range Interpretation Comments Mean Corpuscular Hemoglobin Concent (test code = 786-4) 32.1 31-35 [facility] MarcosRed Cell Distribution Kwcxp6652-15-35 05:58:00* Test Item Value Reference Range Interpretation Comments Red Cell Distribution Width (test code = 72975-3) 13.5 11.7 -14.4 [facility] MarcosPlatelet Idqcr1146-91-49 05:58:00* Test Item Value Reference Range Interpretation Comments Platelet Count (test code = 777-3) 371 140-360 H [facility] MarcosNeutrophils (%) (Auto)2019-11-23 05:58:00 * Test Item Value Reference Range Interpretation Comments Neutrophils (%) (Auto) (test code = 25250-7) 64.4 38.7-80.0 [facility] MarcosLymphocytes (%) (Auto)2019-11-23 05:58:00 * Test Item Value Reference Range Interpretation Comments Lymphocytes (%) (Auto) (test code = 736-9) 22.8 18.0-39.1 [facility]cosMonocytes (%) (Auto)2019-11-23 05:58:00* Test Item Value Reference Range Interpretation Comments Monocytes (%) (Auto) (test code = 5905-5) 8.0 4.4-11.3 [facility]cosEosinophils (%) (Auto)2019-11-23 05:58:00 * Test Item Value Reference Range Interpretation Comments Eosinophils (%) (Auto) (test code = 713-8) 3.0 0.0-6.0 [facility] MarcosBasophils (%) (Auto)2019-11-23 05:58:00* Test Item Value Reference Range Interpretation Comments Basophils (%) (Auto) (test code = 706-2) 1.1 0.0-1.0 H [facility] MarcosIM GRANULOCYTES %2019-11-23 05:58:00* Test Item Value Reference Range Interpretation Comments IM GRANULOCYTES % (test code = IM GRANULOCYTES %) 0.7 0.0- 1.0 [facility]cosNeutrophils # (Auto)2019-11-23 05:58:00* Test Item Value Reference Range Interpretation Comments Neutrophils # (Auto) (test code = 751-8) 5.7 2.1-6.9 [facility] MarcosLymphocytes # (Auto)2019-11-23 05:58:00* Test Item Value Reference Range Interpretation Comments Lymphocytes # (Auto) (test code = 39896-6) 2.0 1.0-3.2 [facility]cosMonocytes # (Auto)2019-11-23 05:58:00* Test Item Value Reference Range Interpretation Comments Monocytes # (Auto) (test code = 742-7) 0.7 0.2-0.8 [facility]cosEosinophils # (Auto)2019-11-23 05:58:00* Test Item Value Reference Range Interpretation Comments Eosinophils # (Auto) (test code = 711-2) 0.3 0.0-0.4 [facility] MarcosBasophils # (Auto)2019-11-23 05:58:00* Test Item Value Reference Range Interpretation Comments Basophils # (Auto) (test code = 704-7) 0.1 0.0-0.1 [facility] MarcosAbsolute Immature Granulocyte (auto 2019-11-23 05:58:00* Test Item Value Reference Range Interpretation Comments Absolute Immature Granulocyte (auto (london t code = Absolute Immature Granulocyte (auto) 0.06 0-0.1 [facility] MarcosBedside Yvfsidn7615-04-99 19:45:00* Test Item Value Reference Range Interpretation Comments Bedside Glucose (test code = 79055-2) 104 70-120 Meter ID: [id number] Santa Rosa Hospital – San MarcosBlood Culture 2019-11-22 14:31:00* Test Item Value Reference Range Interpretation Comments Blood Culture (test code = 96276992) NO GROWTH AFTER 72 HOURS [facility]cosT[facility]anpet[facility] Gfrzjkhqi3029-48-68 06:57:00* Test Item Value Reference Range Interpretation Comments Total Bilirubin (test code = 1975-2) 0.2 0.2-1.2 [facility] MarcosAspartate Amino Transf (AST/SGOT) 2019-11-21 06:57:00* Test Item Value Reference Range Interpretation Comments Aspartate Amino Transf (AST/SGOT) (test code = Aspartate Amino Transf (AST/SGOT)) 8 5-34 [facility] MarcosAlanine Aminotransferase (ALT/SGPT) 2019-11-21 06:57:00* Test Item Value Reference Range Interpretation Comments Alanine Aminotransferase (ALT/SGPT) (test code = 1742-6) 9 0-55 [facility] Neygvxg6354-15-31 06:57:00* Test Item Value Reference Range Interpretation Comments Total Protein (test code = 2885-2) 6.2 6.5-8.1 L [facility] MarcosAlbumin2020-03-15 06:57:00* Test Item Value Reference Range Interpretation Comments Albumin (test code = 1751-7) 3.1 3.5-5.0 L [facility] MarcosGlobulin2020-03-15 06:57:00* Test Item Value Reference Range Interpretation Comments Globulin (test code = 52518-7) 3.1 2.3-3.5 [facility] MarcosAlbumin/Globulin Sauvi6260-31-82 06:57:00 * Test Item Value Reference Range Interpretation Comments Albumin/Globulin Ratio (test code = 1759-0) 1.0 0.8-2.0 [facility] MarcosAlkaline Izjkzeexufm3572-30-59 06:57:00* Test Item Value Reference Range Interpretation Comments Alkaline Phosphatase (test code = 6768-6) 78 40-150 [facility]cos[facility] Kinase QU6929-51-47 15:15:00* Test Item Value Reference Range Interpretation Comments Creatine Kinase MB (test code = 28476-1) 3.20 0-5.0 [facility]cosTroponin L8656-32-15 15:15:00* Test Item Value Reference Range Interpretation Comments Troponin I (test code = MPV4133) 0.015 0-0.300 [facility]cosCreatine Moqpko7881-53-39 15:03:00* Test Item Value Reference Range Interpretation Comments Creatine Kinase (test code = 2157-6) 32 29-168 [facility]cos[facility]ST SINGLE (PORTABLE)2019-11-20 07:27:00 [place] [address] Patient Name: KATIANA GOLDMAN MR #: [id number] : 1955 Age/Sex: 64/F Req #: [id number] Adm Physician: RUSTY ALAMO MD Ordered by: TELLY PAGE NP Report #: [id number] Location: [place] [address] Room/Bed: [facility] Procedure: [id number] 5 DX/CHEST SINGLE (PORTABLE) Exam Date: 11/20/19 Leonora hagan Time: 0610 REPORT STATUS: Signed Examination: Single AP view of the chest. COMPARISON: Portable chest 11/06 INDICATION: Flulike symptoms IMPRESSION: 1. Lines an d Tubes: None 2. Lungs are grossly clear. No consolidation or effusion. 3. Cardiomediastinal silhouette is normal. Pulmonary vasculature is normal. 4. No acute bony abnormalities. Signed by: Dr. Hussein Bronw M.D. on 7:28 AM Dictated By: HUSSEIN BROWN MD 7 Transcribed By: LENI on 11/20/19727 COPY TO: TELLY PAGE MANAGER EDUCATIONAL Urine QNJ3095-32-95 19:50:00* Test Item Value Reference Range Interpretation Comments Urine WBC (test code = 5821-4) 11-20 0-5 H [facility]cosU[facility] QCU8589-67-23 19:50:00* Test Item Value Reference Range Interpretation Comments Urine RBC (test code = 30349-2) 6-10 0-5 H [facility]cosUrine Mruoxvzl4184-45-81 19:50:00* Test Item Value Reference Range Interpretation Comments Urine Bacteria (test code = 00732-6) MANY NONE H [facility]cosU[facility] Epithelial Specv8983-58-26 19:50:00 * Test Item Value Reference Range Interpretation Comments Urine Epithelial Cells (test code = 22962-8) FEW NONE [facility] MarcosUrine Iliua2942-62-13 19:40:00* Test Item Value Reference Range Interpretation Comments Urine Color (test code = 5778-6) YELLOW YELLOW [facility]cosU[facility] Vzqbsix8480-74-58 19:40:00* Test Item Value Reference Range Interpretation Comments Urine Clarity (test code = 65486-4) SL CLOUDY CLEAR [facility]cosU[facility] Specific Kdjhfqx4639-48-75 19:40:00 * Test Item Value Reference Range Interpretation Comments Urine Specific Newton (test code = 5811-5) 1.020 1.010-1.02 5 [facility]cosUrine iU5447-84-87 19:40:00* Test Item Value Reference Range Interpretation Comments Urine pH (test code = 33374-2) 6 5-7 [facility] Leukocyte Qfroxzjg1407-19-07 19:40:00* Test Item Value Reference Range Interpretation Comments Urine Leukocyte Esterase (test code = 5799-2) LARGE NEGATIVE [facility]cosU[facility] Ovkhnxz0640-50-46 19:40:00* Test Item Value Reference Range Interpretation Comments Urine Nitrite (test code = 22638-5) NEGATIVE NEGATIVE [facility]cosU[facility] Qgakmxg2757-19-39 19:40:00* Test Item Value Reference Range Interpretation Comments Urine Protein (test code = 5804-0) 1+ NEGATIVE H [facility]cosUrine Glucose (UA)2019-11-19 19:40:00* Test Item Value Reference Range Interpretation Comments Urine Glucose (UA) (test code = 2349-9) NEGATIVE NEGATIVE [facility]cosU[facility] Eadbtbq9220-96-60 19:40:00* Test Item Value Reference Range Interpretation Comments Urine Ketones (test code = 89776-2) NEGATIVE NEGATIVE [facility]cosUrine Kwmesmwkpaaj4336-87-94 19:40:00* Test Item Value Reference Range Interpretation Comments Urine Urobilinogen (test code = 24448-8) 0.2 0.2-1 [facility]cosU[facility] Yjqterbzj7997-55-09 19:40:00* Test Item Value Reference Range Interpretation Comments Urine Bilirubin (test code = 1978-6) NEGATIVE NEGATIVE [facility]cosU[facility] Vnnel8811-04-96 19:40:00* Test Item Value Reference Range Interpretation Comments Urine Blood (test code = 62763-9) MODERATE NEGATIVE [facility] MarcosLactic Acid Fseeg0612-93-62 15:11:00* Test Item Value Reference Range Interpretation Comments Lactic Acid Level (test code = Lactic Acid Level) 1.7 0.5- 2.0 [facility] MarcosLactic Acid Czafq1076-48-70 15:11:00* Test Item Value Reference Range Interpretation Comments Lactic Acid Level (test code = Lactic Acid Level) 1.7 0.5- 2.0 [facility]cosCHEST SINGLE (PORTABLE)2019-11-19 14:31:00 [facility] [address], [place] [address] Patient Name: KATIANA GOLDMAN MR #: [id number] : 1955 Age/Sex: 64/F Req #: [id number] Adm Physician: Ordered by: TELLY PAGE NP Report #: [id number] Location: ER Room/Bed: Procedure: [id number] DX/CHEST SINGLE (PORTABLE) Exam Date: 11/19/19 Exam [...] ronically Signed By: AMY BRANCH MD on 11/19/19 143 Transcribed By: LENI on 11/19/19 143 COPY TO: TELLY PAGE NP Prothrombin Time 2019-11-19 14:01:00* Test Item Value Reference Range Interpretation Comments Prothrombin Time (test code = 5902-2) 13.0 11.9-14.5 [facility]cosProthromb Time International Ratio 2019-11-19 14:01:00* Test Item Value Reference Range Interpretation Comments Prothromb Time International Ratio (test code = 6301-6) 0.93 Oral Anticoagulant Therapy INR Values:1. Low Intensity Therapy 1.5 - 2.02 . Moderate Intensity Therapy 2.0 - 3.03. High Intensity Therapy(1) 2.5 - 3. 54. High Intensity Therapy(2) 3.0 - 4.05. Panic Value INR > 5.0 [facility] MarcosActivated Partial Thromboplast Time 2019-11-19 14:01:00* Test Item Value Reference Range Interpretation Comments Activated Partial Thromboplast Time (test code = 21275-3) 36.5 23.8-35.5 H [facility] MarcosD-Dimer Quantitative (PE/DVT)2019-11-19 14:01:00* Test Item Value Reference Range Interpretation Comments D-Dimer Quantitative (PE/DVT) (test code = 73073-0) 0.53 0. 00-0.45 H As with all in vitro diagnostic tests, the test results should be interpreted by the physician in conjunction with clinical findings and other test results.Test results are reported in NEW D-dimer units(ug/mLFEU).[facility] MarcosD-Dimer Quantitative (PE/DVT)2019-11-19 14:01:00* Test Item Value Reference Range Interpretation Comments D-Dimer Quantitative (PE/DVT) (test code = 45784-4) 0.53 0. 00-0.45 H As with all in vitro diagnostic tests, the test results should be interpreted by the physician in conjunction with clinical findings and other test results.Test results are reported in NEW D-dimer units(ug/mLFEU).[facility] MarcosInfluenza Virus Types A,B Cwqjfts1306-65-00 13:43:00* Test Item Value Reference Range Interpretation Comments Influenza Virus Types A,B Antigen (test code = 19627-4) NEGATIVE NEGATIVE [facility] MarcosGroup A Streptococcus Xggjon5837-02-87 13:37:00* Test Item Value Reference Range Interpretation Comments Group A Streptococcus Screen (test code = 16227-3) NEGATIVE NEG ATIVE [facility] MarcosGroup A Streptococcus Dzarop5944-03-69 13:37:00* Test Item Value Reference Range Interpretation Comments Group A Streptococcus Screen (test code = 99906-9) NEGATIVE NEG ATIVE [facility]- CTA ABD AORTA IF LWEX QV0967-48-52 22:14:00 Name: KATIANA GOLDMAN [facility] : 1955 Age/S: 63 / F [address] Unit #: [id number] Loc: [place] [address] Phys: Salo Lezama MD Acct: [id number] Dis Date: Status: REG CLI PHONE #: [phone] Exam Date: 10/04/2019922 FAX #: [phone] Reason: CLAUDICATION EXAMS: CPT CODE: [id number] [place] [address] EXAM: CT angiography of the abdomen, pelvis [...] Signed Repo rt (CONTINUED) Name: KATIANA GOLDMAN [facility] : 1955 Age/S: 63 / F [address] [facility]: [id number] Loc: [place] [address] Phys: Salo Lezama MD Acct: [id number] Dis Date: Status: REG CLI PHONE #: [phone] Exam Date: 10/04/2019922 FAX #: [phone] Reason: CLAUDICATION EXAMS: CPT CODE: [id number] [place] [address] <Continued> Axial source images show an enlarged [...] 6. Fatty liver. 7. Emphysema. Location code: [facility] at 2214 Reported and signed by: Elmo Caldera M.D. CC: Salo Lezama MD; Andie San M.D. Technologist:Rojelio Marion RT(R),(MR),(CT); CTDI: DLP: Trnscb Date/Time: 10/04/2019 (2213) Renata Orig Print D/T: S: 10/04/2019 (2216) PAGE 2 Signed Report COMPREHENSIVE METABOLIC ISEIT0205-84-88 08:58:00* Test Item Value Reference Range Interpretation [...] result is a direct measurement.========= THYROID STIMULATING CMVUTFH1687-39-39 08:58:00* Test Item Value Reference Range Interpretation Comments THYROID STIMULATING HORMONE (test code = TSH) 0.354 uIU/mL 0.36-3.7 4 L TSH REFERENCE RANGES: EUTHYROID: 0.35 - 4.3 mIU/mL HYPO : > 5.5 mIU/mL HYPER : < 0.35 mIU/mL COMPREHENSIVE METABOLIC FVSKQ5113-72-06 08:36:00* Test Item Value Reference Range Interpretation [...] code = LDL) mg/dL 100-129 THYROID STIMULATING QUUPIJZ4190-67-86 08:36:00* Test Item Value Reference Range Interpretation Comments THYROID STIMULATING HORMONE (test code = TSH) uIU/mL 0.36-3.7 4 CBC W/AUTO OOII6786-14-91 08:25:00* Test Item Value Reference Range Interpretation [...] = MDIFF) NO - XR CHEST 2 J6058-02-72 07:58:00 FAX: Salo Quintana [phone] [place]: O St: REG FAX: Andie Hinson [phone] Name: KATIANA GOLDMAN [facility] : 1955 Age/S: 63/F [address] Unit #: [id number] Loc: [place] [address] Phys: Salo Lezama MD Acct: [id number] Dis Date: Status: REG CLI PHONE #: [phone] Exam Date: 10/04/2019834 FAX #: [phone] Reason: I70.213,I44.9,E78.00,E03.9 EXAMS: CPT CODE: [id number] XR CHEST 2 V 53305 HISTORY: I70.213,I44.9,E78.00,E03.9 TECHNIQUE: PA and lateral chest x-ray COMPARISON: 03/24/18 FINDINGS: No airspace consolidation or pleural effusion. Pulmonary hyperinflation and emphysema. Normal heart size. Thoracic aortic vascular calcification. Degenerative changes of the spine. IMPRESSION: No radiographic evidence of acute cardiopulmonary process. LOCATION: at 0758 Reported and signed by: Inge Pang D.O. CC: Salo Lezama MD; Andie San M.D. Technologist: RT Ivy(R) Trnscrd Date/Time/By: 10/04/2019 (075) : By: [email or web address] Orig Print D/T: S: 10/04/2019 (0835) PAGE 1 Signed Report Bedside Glucose 2018-12-09 11:36:00* Test Item Value Reference Range Interpretation Comments Bedside Glucose (test code = 78729-3) 104 70-120 Meter ID: [id number] [facility] San MarcosWhite Blood Count 2018-12-09 05:51:00* Test Item Value Reference Range Interpretation Comments White Blood Count (test code = 6690-2) 8.41 4.8-10.8 [facility] MarcosRed Blood Hvwwu7908-43-68 05:51:00* Test Item Value Reference Range Interpretation Comments Red Blood Count (test code = 789-8) 3.60 3.6-5.1 [facility] MarcosHemoglobin2019-04-03 05:51:00* Test Item Value Reference Range Interpretation Comments Hemoglobin (test code = 32602-8) 10.6 12.0-16.0 L [facility] MarcosHematocrit2019-04-03 05:51:00* Test Item Value Reference Range Interpretation Comments Hematocrit (test code = 4544-3) 33.1 34.2-44.1 L [facility] MarcosMean Corpuscular Kdmjnl4515-72-66 05:51:00* Test Item Value Reference Range Interpretation Comments Mean Corpuscular Volume (test code = 787-2) 91.9 81-99 [facility] San MarcosMean Corpuscular Eunjxjdkwu2180-15-57 05:51:00* Test Item Value Reference Range Interpretation Comments Mean Corpuscular Hemoglobin (test code = 785-6) 29.4 28-32 [facility] San MarcosMean Corpuscular Hemoglobin Concent 2018-12-09 05:51:00* Test Item Value Reference Range Interpretation Comments Mean Corpuscular Hemoglobin Concent (test code = 786-4) 32.0 31-35 [facility] MarcosRed Cell Distribution Wtkmb2529-95-19 05:51:00* Test Item Value Reference Range Interpretation Comments Red Cell Distribution Width (test code = 87809-2) 15.9 11.7 -14.4 H [facility] MarcosPlatelet Hqubm8178-02-16 05:51:00* Test Item Value Reference Range Interpretation Comments Platelet Count (test code = 777-3) 319 140-360 [facility] MarcosNeutrophils (%) (Auto)2018-12-09 05:51:00 * Test Item Value Reference Range Interpretation Comments Neutrophils (%) (Auto) (test code = 33102-0) 70.5 38.7-80.0 [facility] MarcosLymphocytes (%) (Auto)2018-12-09 05:51:00 * Test Item Value Reference Range Interpretation Comments Lymphocytes (%) (Auto) (test code = 736-9) 17.4 18.0-39.1 L [facility] MarcosMonocytes (%) (Auto)2018-12-09 05:51:00* Test Item Value Reference Range Interpretation Comments Monocytes (%) (Auto) (test code = 5905-5) 8.2 4.4-11.3 [facility]cosEosinophils (%) (Auto)2018-12-09 05:51:00 * Test Item Value Reference Range Interpretation Comments Eosinophils (%) (Auto) (test code = 713-8) 2.9 0.0-6.0 [facility] MarcosBasophils (%) (Auto)2018-12-09 05:51:00* Test Item Value Reference Range Interpretation Comments Basophils (%) (Auto) (test code = 706-2) 0.6 0.0-1.0 [facility] MarcosIM GRANULOCYTES %2018-12-09 05:51:00* Test Item Value Reference Range Interpretation Comments IM GRANULOCYTES % (test code = IM GRANULOCYTES %) 0.4 0.0- 1.0 [facility] MarcosNeutrophils # (Auto)2018-12-09 05:51:00* Test Item Value Reference Range Interpretation Comments Neutrophils # (Auto) (test code = 751-8) 5.9 2.1-6.9 [facility] MarcosLymphocytes # (Auto)2018-12-09 05:51:00* Test Item Value Reference Range Interpretation Comments Lymphocytes # (Auto) (test code = 48786-3) 1.5 1.0-3.2 [facility] MarcosMonocytes # (Auto)2018-12-09 05:51:00* Test Item Value Reference Range Interpretation Comments Monocytes # (Auto) (test code = 742-7) 0.7 0.2-0.8 [facility] MarcosEosinophils # (Auto)2018-12-09 05:51:00* Test Item Value Reference Range Interpretation Comments Eosinophils # (Auto) (test code = 711-2) 0.2 0.0-0.4 [facility] MarcosBasophils # (Auto)2018-12-09 05:51:00* Test Item Value Reference Range Interpretation Comments Basophils # (Auto) (test code = 704-7) 0.1 0.0-0.1 [facility] MarcosAbsolute Immature Granulocyte (auto 2018-12-09 05:51:00* Test Item Value Reference Range Interpretation Comments Absolute Immature Granulocyte (auto (london t code = Absolute Immature Granulocyte (auto) 0.03 0-0.1 [facility] MarcosUrine Rsynxgf2212-73-94 07:20:00* Test Item Value Reference Range Interpretation Comments Urine Culture (test code = 630-4) Organism: KLEBSIELLA PNEUMONIAE [facility] San MarcosG I NTOOD6672-30-26 18:40:00 [place] [address] Patient Name: KATIANA GOLDMAN MR #: [id number] : 1955 Age/Sex: 63/F Req #: [id number] Adm Physician: RUSTY ALAMO MD Ordered by: LING MACKEY MD Report #: [id number] Location: MED/SURG Room/Bed: [facility] Procedure: [id number] NM/ G I BLEED Exam Date: 12/03/18 [...] (test code = 2951-2) 131 136-145 L [facility] MarcosPotassium Jwglg1114-25-06 06:24:00* Test Item Value Reference Range Interpretation Comments Potassium Level (test code = 2823-3) 4.2 3.5-5.1 [facility] MarcosChloride Blonh2650-88-39 06:24:00* Test Item Value Reference Range Interpretation Comments Chloride Level (test code = 2075-0) 101 98-107 [facility] MarcosCarbon Dioxide Uynpk7322-64-01 06:24:00* Test Item Value Reference Range Interpretation Comments Carbon Dioxide Level (test code = 8-9) 24 22-29 [facility] San MarcosAnion Isx7596-23-48 06:24:00* Test Item Value Reference Range Interpretation Comments Anion Gap (test code = 89618-4) 10.2 8-16 [facility] San MarcosBlood Urea Asaibhie0376-55-37 06:24:00* Test Item Value Reference Range Interpretation Comments Blood Urea Nitrogen (test code = 3094-0) 19 7-26 [facility] MarcosCreatinine2019-03-28 06:24:00* Test Item Value Reference Range Interpretation Comments Creatinine (test code = 2160-0) 0.68 0.57-1.11 [facility] San MarcosBUN/Creatinine Pnnol5022-69-30 06:24:00* Test Item Value Reference Range Interpretation Comments BUN/Creatinine Ratio (test code = 3097-3) 28 6-25 H [facility] San MarcosEstimat Glomerular Filtration Rate 2018-12-03 06:24:00* Test Item Value Reference Range Interpretation Comments Estimat Glomerular Filtration Rate (test code = 500439608) > 60 >60 Ranges were taken from the National Kidney Disease Education Program and the [facility] [employer] literature.Reference ranges:60 or greater: Fgmcyo91-52 ( for 3 consecutive months): Chronic kidney disease 15 or less: Kidney failureChristus Santa Rosa Hospital – San MarcosGlucose Wwyju9610-23-74 06:24:00* Test Item Value Reference Range Interpretation Comments Glucose Level (test code = FLW3137) 102 74-118 [facility] MarcosCalcium Dugzp0737-29-90 06:24:00* Test Item Value Reference Range Interpretation Comments Calcium Level (test code = 65489-6) 8.4 8.4-10.2 [facility] San MarcosTotal Ladzsnybo5569-19-68 06:24:00* Test Item Value Reference Range Interpretation Comments Total Bilirubin (test code = 1975-2) 0.2 0.2-1.2 [facility] San MarcosAspartate Amino Transf (AST/SGOT) 2018-12-03 06:24:00* Test Item Value Reference Range Interpretation Comments Aspartate Amino Transf (AST/SGOT) (test code = Aspartate Amino Transf (AST/SGOT)) 12 5-34 [facility] San MarcosAlanine Aminotransferase (ALT/SGPT) 2018-12-03 06:24:00* Test Item Value Reference Range Interpretation Comments Alanine Aminotransferase (ALT/SGPT) (test code = 1742-6) 8 0-55 [facility] San MarcosTotal Nezyyyp1083-33-46 06:24:00* Test Item Value Reference Range Interpretation Comments Total Protein (test code = 2885-2) 5.2 6.5-8.1 L [facility] San MarcosAlbumin2019-03-28 06:24:00* Test Item Value Reference Range Interpretation Comments Albumin (test code = 1751-7) 3.1 3.5-5.0 L [facility] MarcosGlobulin2019-03-28 06:24:00* Test Item Value Reference Range Interpretation Comments Globulin (test code = 48270-5) 2.1 2.3-3.5 L [facility] MarcosAlbumin/Globulin Lgnkp7825-77-21 06:24:00 * Test Item Value Reference Range Interpretation Comments Albumin/Globulin Ratio (test code = 1759-0) 1.5 0.8-2.0 [facility] San MarcosAlkaline Hgqxiyllfcp6862-39-86 06:24:00* Test Item Value Reference Range Interpretation Comments Alkaline Phosphatase (test code = 6768-6) 70 40-150 [facility] San MarcosCT ABDOMEN/PELVIS IQ9878-13-20 22:04:00 [facility] [address] [place] [address] Patient Name: KATIANA GOLDMAN MR #: [id number] : 1955 Age/Sex: 63/F Req #: [id number] Adm Physician: Ordered by: JAZ HONEYCUTT MD Report #: [id number] Location: ER Room/Bed: Procedure: 31 CT/CT ABDOMEN/PELVIS WO Exam Date: 12/02/18 Leonora hagan Time: 2119 REPORT STATUS: Signed EXAM: CT [...] 2214 COPY TO: JAZ HONEYCUTT MD Urine FOK0924-53-44 17:04:00* Test Item Value Reference Range Interpretation Comments Urine WBC (test code = 5821-4) 11-20 0-5 H [facility] MarcosUrine XVP7418-15-87 17:04:00* Test Item Value Reference Range Interpretation Comments Urine RBC (test code = 32862-0) 0-5 0-5 [facility] MarcosUrine Qyngxozq3225-76-07 17:04:00* Test Item Value Reference Range Interpretation Comments Urine Bacteria (test code = 78918-5) MANY NONE [facility] Epithelial Ggkzt1635-42-33 17:04:00 * Test Item Value Reference Range Interpretation Comments Urine Epithelial Cells (test code = 38023-7) RARE NONE [facility] MarcosUrine Aylkz7627-14-91 16:51:00* Test Item Value Reference Range Interpretation Comments Urine Color (test code = 5778-6) YELLOW YELLOW [facility] MarcosUrine Ojnbgzi7544-40-14 16:51:00* Test Item Value Reference Range Interpretation Comments Urine Clarity (test code = 20296-0) HAZY CLEAR [facility] Specific Tofokht8399-29-62 16:51:00 * Test Item Value Reference Range Interpretation Comments Urine Specific Newton (test code = 5811-5) 1.005 1.010-1.02 5 L [facility] San MarcosUrine kF7549-18-55 16:51:00* Test Item Value Reference Range Interpretation Comments Urine pH (test code = 12390-1) 6 5-7 [facility] San MarcosUrine Leukocyte Reogixrk9815-22-34 16:51:00* Test Item Value Reference Range Interpretation Comments Urine Leukocyte Esterase (test code = 5799-2) 2+ NEGATIVE H [facility] San MarcosUrine Cjknjnr3612-89-25 16:51:00* Test Item Value Reference Range Interpretation Comments Urine Nitrite (test code = 49963-3) POSITIVE NEGATIVE H [facility] San MarcosUrine Xjvinpt6357-75-00 16:51:00* Test Item Value Reference Range Interpretation Comments Urine Protein (test code = 5804-0) NEGATIVE NEGATIVE [facility] MarcosUrine Glucose (UA)2018-12-02 16:51:00* Test Item Value Reference Range Interpretation Comments Urine Glucose (UA) (test code = 2349-9) NEGATIVE NEGATIVE [facility] San MarcosUrine Ogzenrj2966-73-04 16:51:00* Test Item Value Reference Range Interpretation Comments Urine Ketones (test code = 66489-4) NEGATIVE NEGATIVE [facility] MarcosUrine Cqynqwqrknhf3361-04-23 16:51:00* Test Item Value Reference Range Interpretation Comments Urine Urobilinogen (test code = 49561-9) 0.2 0.2-1 [facility] MarcosUrine Jzzkfoeru5568-51-47 16:51:00* Test Item Value Reference Range Interpretation Comments Urine Bilirubin (test code = 1978-6) NEGATIVE NEGATIVE [facility] San MarcosUrine Icxys0431-13-71 16:51:00* Test Item Value Reference Range Interpretation Comments Urine Blood (test code = 13968-4) 2+ NEGATIVE H [facility] San MarcosMRI SPINE CERVICAL RX0458-66-40 08:19:00 [place] [address] Patient Name: KATIANA GOLDMAN MR #: [id number] : 1955 Age/Sex: 62/F Req #: [id number] Adm Physician: Ordered by: JEWEL LEÓN M.D. Report #: [id number] Location: MRI Room/B ed: Procedure: [id number] MRI/MRI SPINE CERVICAL WO E xam Date: [...] TO: JEWEL LEÓN M.D. MRI SPINE LUMBAR DY1933-82-51 08:12:00 [place] [address] Patient Name: KATIANA GOLDMAN MR #: [id number] : 1955 Age/Sex: 62/F Req #: [id number] [facility] Physician: Ordered by: JEWEL LEÓN M.D. Report #: [id number] Location: MRI Room/Bed: Procedure: [id number] MRI/MRI SPINE LUMBAR WO Exjan m Date: Exam Time: REPORT STATUS: Signed [...] 9:54 AM Dictated By: MORTEZA HOBBS MD 7081 Transcribed By: LENI on 05/29/18 6705 COPY TO: JEWEL LEÓN M.D. Bedside Dfrpplu6096-31-91 11:54:00* Test Item Value Reference Range Interpretation Comments Bedside Glucose (test code = 07562-5) 98 70-120 Meter ID: [id number] [facility]roeodium Level 2018-04-16 06:13:00* Test Item Value Reference Range Interpretation Comments Sodium Level (test code = 2951-2) 129 136-145 L [facility] MarcosPotassium Uuybv7383-68-64 06:13:00* Test Item Value Reference Range Interpretation Comments Potassium Level (test code = 2823-3) 3.6 3.5-5.1 [facility]cosChloride [id number] 06:13:00* Test Item Value Reference Range Interpretation Comments Chloride Level (test code = 2075-0) 102 98-107 [facility]cosCarbon Dioxide Cvrwb2583-16-79 06:13:00* Test Item Value Reference Range Interpretation Comments Carbon Dioxide Level (test code = 2028-9) 15 22-29 L [facility]cosAnion Aqp4202-06-11 06:13:00* Test Item Value Reference Range Interpretation Comments Anion Gap (test code = 25910-0) 15.6 8-16 [facility]cosBlood Urea Fgtdadqu7535-46-64 06:13:00* Test Item Value Reference Range Interpretation Comments Blood Urea Nitrogen (test code = 3094-0) 8 7-26 [facility]cosCreatinine2018-08-09 06:13:00* Test Item Value Reference Range Interpretation Comments Creatinine (test code = 2160-0) 0.65 0.57-1.11 [facility]cosBUN/Creatinine Kjfpi7980-44-83 06:13:00* Test Item Value Reference Range Interpretation Comments BUN/Creatinine Ratio (test code = 3097-3) 12 6-25 [facility] MarcosEstimat Glomerular Filtration Rate 2018-04-16 06:13:00* Test Item Value Reference Range Interpretation Comments Estimat Glomerular Filtration Rate (test code = 87385-0) 60- >60 Ranges were taken from the National Kidney Disease Education Program and the [facility]ney Foundation literature.Reference ranges:60 or greater: Mxkenb12-25 ( for 3 consecutive months): Chronic kidney disease 15 or less: Kidney failureChristus [facility] Hospital – San MarcosGlucose Tdpgy1176-21-15 06:13:00* Test Item Value Reference Range Interpretation Comments Glucose Level (test code = JEI9253) 106 74-118 [facility]cosCalcium Tklrf8470-45-21 06:13:00* Test Item Value Reference Range Interpretation Comments Calcium Level (test code = 95871-0) 8.3 8.4-10.2 L [facility]cosMagnesium Gcwef9659-74-05 06:13:00* Test Item Value Reference Range Interpretation Comments Magnesium Level (test code = 24174-9) 1.4 1.3-2.1 [facility]cosMagnesium Uzgrv4069-19-20 06:13:00* Test Item Value Reference Range Interpretation Comments Magnesium Level (test code = 87316-4) 1.4 1.3-2.1 [facility]cosBacterial urine gpuniwb5183-98-98 06:11:00* Test Item Value Reference Range Interpretation Comments Urine Culture (test code = 630-4) Organism: PROTEUS MIRABILIS [facility]cosUrine Fosiyqg2411-92-91 06:11:00* Test Item Value Reference Range Interpretation Comments Urine Culture (test code = 630-4) Organism: PROTEUS MIRABILIS [facility])2018-04-14 18:09:00* Test Item Value Reference Range Interpretation Comments Stool Lactoferrin (LAB) (test code = 93409-3) POSITIVE NEGATIVE H Testing on stool aspirate specimens is outside singer back tender claims since specime n type not validated on this assay.[facility])2018-04-14 18:09:00* Test Item Value Reference Range Interpretation Comments Stool Lactoferrin (LAB) (test code = 28080-8) POSITIVE NEGATIVE H Testing on stool aspirate specimens is outside singer back tender claims since specime n type not validated on this assay.[facility]andCT [facility]BD[facility]PELVIS UQ3024-26-61 16:55:00 [facility] [address] [address] Patient Name: KATIANA GOLDMAN MR #: [id number] : 1955 Age/Sex: 62/F Req #: [id number] Adm Physician: LISA HUTCHINSON MD Ordered by: LISA HUTCHINSON MD Report #: [id number] Location: MED/SURG3 Room/Bed: 293 Procedure: [id number] C T/CT ABDOMEN/PELVIS WO Exam Date: 04/14/18 Exam Time : 1450 REPORT STATUS: Signed PROCEDURE: CT ABDOMEN AND PELVIS WITHOUT C ONTRAST TECHNIQUE: The abdomen and pelvis were scanned utilizing a [facility] CISSOIDtector helical scanner from the diaphragm to the lesser trochanter. No ora l contrast was given due to vomiting. No IV contrast was administered due to history of iodine allergy. Coronal and sagittal multiplanar reformations w ere obtained. COMPARISON: [facility], CT, CT ABDOMEN/PELVIS WO, 07/10/2012, 0:41. INDICATIONS: [...] to peristalsis. There is no surrounding inflammatory staples ges, no wall thickening, and the loop [...] 16 55 Transcribed By: ALEXANDRA on 04/14/18 1711 COPY TO: LISA HUTCHINSON MD Clostridium Difficile Toxin A & [id number] 15:06:00* Test Item Value Reference Range Interpretation Comments Clostridium Difficile Toxin A & B (test code = 043516742) NEGATIVE NEGATIVE Testing on stool aspirate specimens is outside singer back tender claims since specime n type not validated on this assay.[facility] Clostridium Difficile Toxin A & [id number] 15:06:00* Test Item Value Reference Range Interpretation Comments Clostridium Difficile Toxin A & B (test code = 860937938) NEGATIVE NEGATIVE Testing on stool aspirate specimens is outside singer back tender claims since specime n type not validated on this assay.[facility] Ziembepwh1457-30-85 06:12:00* Test Item Value Reference Range Interpretation Comments Total Bilirubin (test code = 1975-2) 0.4 0.2-1.2 [facility]cosAspartate Amino Transf (AST/SGOT) 2018-04-13 06:12:00* Test Item Value Reference Range Interpretation Comments Aspartate Amino Transf (AST/SGOT) (test code = Aspartate Amino Transf (AST/SGOT)) 16 5-34 [facility]cosAlanine Aminotransferase (ALT/SGPT) 2018-04-13 06:12:00* Test Item Value Reference Range Interpretation Comments Alanine Aminotransferase (ALT/SGPT) (test code = 1742-6) 16 0-55 [facility]cosTotal Wvztrnt6077-05-18 06:12:00* Test Item Value Reference Range Interpretation Comments Total Protein (test code = 2885-2) 5.9 6.5-8.1 L [facility]cosAlbumin2018-08-06 06:12:00* Test Item Value Reference Range Interpretation Comments Albumin (test code = 1751-7) 3.6 3.5-5.0 [facility]cosGlobulin2018-08-06 06:12:00* Test Item Value Reference Range Interpretation Comments Globulin (test code = 78471-5) 2.3 2.3-3.5 [facility]cosAlbumin/Globulin Lgmvc3987-53-73 06:12:00 * Test Item Value Reference Range Interpretation Comments Albumin/Globulin Ratio (test code = 1759-0) 1.6 0.8-2.0 [facility]cosAlkaline Edcygbvftkf3295-44-05 06:12:00* Test Item Value Reference Range Interpretation Comments Alkaline Phosphatase (test code = 6768-6) 98 40-150 [facility]cosWhite Blood Kjlbp8081-01-68 05:58:00* Test Item Value Reference Range Interpretation Comments White Blood Count (test code = 6690-2) 10.15 4.8-10.8 [facility]cosRed Blood Cspzz5126-16-14 05:58:00* Test Item Value Reference Range Interpretation Comments Red Blood Count (test code = 789-8) 3.13 3.6-5.1 L [facility]cosHemoglobin2018-08-06 05:58:00* Test Item Value Reference Range Interpretation Comments Hemoglobin (test code = 67249-6) 9.6 12.0-16.0 L [facility]cosHematocrit2018-08-06 05:58:00* Test Item Value Reference Range Interpretation Comments Hematocrit (test code = 4544-3) 27.6 34.2-44.1 L [facility]cosMean Corpuscular Qmeilg8924-14-03 05:58:00* Test Item Value Reference Range Interpretation Comments Mean Corpuscular Volume (test code = 787-2) 88.2 81-99 [facility]cosMean Corpuscular Kmbvucukxx7578-71-37 05:58:00* Test Item Value Reference Range Interpretation Comments Mean Corpuscular Hemoglobin (test code = 785-6) 30.7 28-32 [facility]cosMean Corpuscular Hemoglobin Concent 2018-04-13 05:58:00* Test Item Value Reference Range Interpretation Comments Mean Corpuscular Hemoglobin Concent (test code = 786-4) 34.8 31-35 [facility]cosRed Cell Distribution Sdxla8195-01-93 05:58:00* Test Item Value Reference Range Interpretation Comments Red Cell Distribution Width (test code = 88080-4) 12.5 11.7 -14.4 [facility] MarcosPlatelet Vchge0873-71-36 05:58:00* Test Item Value Reference Range Interpretation Comments Platelet Count (test code = 777-3) 333 140-360 [facility]cosNeutrophils (%) (Auto)2018-04-13 05:58:00 * Test Item Value Reference Range Interpretation Comments Neutrophils (%) (Auto) (test code = 39527-6) 76.1 38.7-80.0 [facility]cosLymphocytes (%) (Auto)2018-04-13 05:58:00 * Test Item Value Reference Range Interpretation Comments Lymphocytes (%) (Auto) (test code = 736-9) 14.9 18.0-39.1 L [facility]cosMonocytes (%) (Auto)2018-04-13 05:58:00* Test Item Value Reference Range Interpretation Comments Monocytes (%) (Auto) (test code = 5905-5) 7.2 4.4-11.3 [facility]cosEosinophils (%) (Auto)2018-04-13 05:58:00 * Test Item Value Reference Range Interpretation Comments Eosinophils (%) (Auto) (test code = 713-8) 0.9 0.0-6.0 [facility]cosBasophils (%) (Auto)2018-04-13 05:58:00* Test Item Value Reference Range Interpretation Comments Basophils (%) (Auto) (test code = 706-2) 0.4 0.0-1.0 [facility]cosIM GRANULOCYTES %2018-04-13 05:58:00* Test Item Value Reference Range Interpretation Comments IM GRANULOCYTES % (test code = IM GRANULOCYTES %) 0.5 0.0- 1.0 [facility]cosNeutrophils # (Auto)2018-04-13 05:58:00* Test Item Value Reference Range Interpretation Comments Neutrophils # (Auto) (test code = 751-8) 7.7 2.1-6.9 H [facility]cosLymphocytes # (Auto)2018-04-13 05:58:00* Test Item Value Reference Range Interpretation Comments Lymphocytes # (Auto) (test code = 34571-9) 1.5 1.0-3.2 [facility]cosMonocytes # (Auto)2018-04-13 05:58:00* Test Item Value Reference Range Interpretation Comments Monocytes # (Auto) (test code = 742-7) 0.7 0.2-0.8 [facility]cosEosinophils # (Auto)2018-04-13 05:58:00* Test Item Value Reference Range Interpretation Comments Eosinophils # (Auto) (test code = 711-2) 0.1 0.0-0.4 [facility]Basophils # (Auto)2018-04-13 05:58:00* Test Item Value Reference Range Interpretation Comments Basophils # (Auto) (test code = 704-7) 0.0 0.0-0.1 [facility]cosAbsolute Immature Granulocyte (auto 2018-04-13 05:58:00* Test Item Value Reference Range Interpretation Comments Absolute Immature Granulocyte (auto ([place] t code = Absolute Immature Granulocyte (auto) 0.05 0-0.1 [facility] MarcosUrine Rnzml8364-28-61 21:26:00* Test Item Value Reference Range Interpretation Comments Urine Color (test code = 5778-6) YELLOW YELLOW [facility] MarcosUrine Vfiwylm1878-25-62 21:26:00* Test Item Value Reference Range Interpretation Comments Urine Clarity (test code = 48165-4) CLOUDY CLEAR H [facility] MarcosUrine Specific Gywgevs2383-05-31 21:26:00 * Test Item Value Reference Range Interpretation Comments Urine Specific [place] (test code = 5811-5) 1.005 1.010-1.02 5 L [facility] MarcosUrine [id number] 21:26:00* Test Item Value Reference Range Interpretation Comments Urine pH (test code = 69128-9) 7 5-7 [facility]cosUrine Leukocyte Sbfhujwb7997-32-31 21:26:00* Test Item Value Reference Range Interpretation Comments Urine Leukocyte Esterase (test code = 5799-2) 2+ NEGATIVE H [facility] MarcosUrine Npowgdb7747-56-50 21:26:00* Test Item Value Reference Range Interpretation Comments Urine Nitrite (test code = 54867-9) POSITIVE NEGATIVE H [facility]cosUrine Zwtnmtc0888-44-22 21:26:00* Test Item Value Reference Range Interpretation Comments Urine Protein (test code = 5804-0) NEGATIVE NEGATIVE [facility]cosUrine Glucose (UA)2018-04-12 21:26:00* Test Item Value Reference Range Interpretation Comments Urine Glucose (UA) (test code = 2349-9) NEGATIVE NEGATIVE [facility]cosUrine Jxrcgqy7977-64-66 21:26:00* Test Item Value Reference Range Interpretation Comments Urine Ketones (test code = 31125-7) NEGATIVE NEGATIVE [facility]cosUrine Jbltzwxcruae9535-17-64 21:26:00* Test Item Value Reference Range Interpretation Comments Urine Urobilinogen (test code = 30916-2) 0.2 0.2-1 [facility]cosUrine Greeddxtr5005-20-09 21:26:00* Test Item Value Reference Range Interpretation Comments Urine Bilirubin (test code = 1978-6) NEGATIVE NEGATIVE [facility]cosUrine Pnjhx5123-64-29 21:26:00* Test Item Value Reference Range Interpretation Comments Urine Blood (test code = 95326-5) NEGATIVE NEGATIVE [facility]cosUrine [id number] 21:26:00* Test Item Value Reference Range Interpretation Comments Urine WBC (test code = 5821-4) 50- 0-5 H [facility]cosUrine NSX2900-69-00 21:26:00* Test Item Value Reference Range Interpretation Comments Urine RBC (test code = 54342-0) 0-5 0-5 [facility]cosUrine Ywtoffpy3398-03-52 21:26:00* Test Item Value Reference Range Interpretation Comments Urine Bacteria (test code = 96493-4) MANY NONE H [facility]cosUrine Epithelial Inbln4051-59-62 21:26:00 * Test Item Value Reference Range Interpretation Comments Urine Epithelial Cells (test code = 40751-3) FEW NONE [facility]andABDOMEN AC[facility] W/PA [id number] 20:26:00 [facility] [address] [address] Patient Name: KATIANA GOLDMAN MR #: [id number] : 1955 Age/Sex: 62/F Req #: [id number] Adm Physician: Ordered by: JAZ HONEYCUTT MD Report #: [id number] Location: ER Room/Bed: Procedure: [id number] DX/ABDOMEN ACUTE SERIE S W/PA CXR Exam Date: 04/12/18 Exam Time: 1950 REPORT STATUS: Signed ABDOMEN ACUTE SERIES W/PA [...] 04/12/182029 COPY TO: JAZ HONEYCUTT MD Creatine Hzosuo6964-64-12 20:20:00* Test Item Value Reference Range Interpretation Comments Creatine Kinase (test code = 2157-6) 61 29-168 [facility]cosCreatine Kinase [id number] 20:20:00* Test Item Value Reference Range Interpretation Comments Creatine Kinase MB (test code = 90661-9) 2.10 0-5.0 [facility]Trroper [facility]n [id number] 20:20:00* Test Item Value Reference Range Interpretation Comments Troponin I (test code = WNX1004) 0.025 0-0.300 [facility] MarcosAmylase Lkbox4385-69-67 20:20:00* Test Item Value Reference Range Interpretation Comments Amylase Level (test code = 1798-8) 37 25-125 [facility] MarcosLipase2018-08-05 20:20:00* Test Item Value Reference Range Interpretation Comments Lipase (test code = 3040-3) [facility]cosCreatine Rcdlxe3733-46-45 20:20:00* Test Item Value Reference Range Interpretation Comments Creatine Kinase (test code = 2157-6) 61 29-168 [facility]cosCreatine Kinase [id number] 20:20:00* Test Item Value Reference Range Interpretation Comments Creatine Kinase MB (test code = 43578-0) 2.10 0-5.0 [facility]cosTrwin[facility] [id number] 20:20:00* Test Item Value Reference Range Interpretation Comments Troponin I (test code = STF0023) 0.025 0-0.300 [facility]cosAmylase Mgjhm7393-04-71 20:20:00* Test Item Value Reference Range Interpretation Comments Amylase Level (test code = 1798-8) 37 25-125 [facility] MarcosLipase2018-08-05 20:20:00* Test Item Value Reference Range Interpretation Comments Lipase (test code = 3040-3) 10 [facility]cosArterial Blood sP5568-12-95 09:44:00* Test Item Value Reference Range Interpretation Comments Arterial Blood pH (test code = 2744-1) 7.39 7.31-7.41 [facility]cosArterial Blood Partial Pressure CO2 2017-12-24 09:44:00* Test Item Value Reference Range Interpretation Comments Arterial Blood Partial Pressure CO2 (test code = 2019-04) 43 41-51 [facility] MarcosArterial Blood Partial Pressure O2 2017-12-24 09:44:00* Test Item Value Reference Range Interpretation Comments Arterial Blood Partial Pressure O2 (test code = 2019-04) 84 80-105 [facility] MarcosArterial Blood [id number] 09:44:00* Test Item Value Reference Range Interpretation Comments Arterial Blood HCO3 (test code = 1960-4) 26 23-28 [facility]cosArterial Blood Base Qyyrcc2214-04-18 09:44:00* Test Item Value Reference Range Interpretation Comments Arterial Blood Base Excess (test code = 1925-7) 1.0 -2-3 [facility]cosArterial Blood Oxygen Saturation 2017-12-24 09:44:00* Test Item Value Reference Range Interpretation Comments Arterial Blood Oxygen Saturation (test code = 2708-6) 96.0 95-98 [facility] MarcosFiO22018-04-18 09:44:00* Test Item Value Reference Range Interpretation Comments FiO2 (test code = FiO2) 32 PT WEARS 3LPM NASAL CANULACHI [facility]
[2020-04-12 01:34] LABS: BILIRUBIN,URINE NEGATIVE (NEGATIVE); CLARITY,URINE CLEAR (CLEAR); COLOR,URINE YELLOW (YELLOW); KETONES,URINE 1+ (NEGATIVE); LEUKOCYTE ESTERASE ,URINE NEGATIVE (NEGATIVE); NITRITE,URINE NEGATIVE (NEGATIVE); PROTEIN,URINE DIPSTICK NEGATIVE (NEGATIVE); URINE UROBILINOGEN 0.2 mg/dL (0.2 - 1)
[2020-04-12 01:42] LABS: BACTERIA,URINE MODERATE /HPF; EPITHELIAL CELLS,URINE FEW /LPF; RENAL EPITHELIAL CELLS,URINE FEW; TRANSITIONAL EPI CELLS,URINE FEW
[2020-04-12] MEDS: ONDANSETRON HCL INJ 2MG/ML 2ML 2 MG/ML VIAL IV PRN ×2 (07:55→12:38)
[2020-04-12] MEDS ORDERED: MEROPENEM 1GM 100 ML IV SCH (08:00)
[2020-04-12 11:33] LABS: ALBUMIN 3.1 g/dL (3.5-5.0); ALBUMIN/GLOBULIN RATIO 1.2 (0.8-2.0); CREATININE, SERUM 1.78 mg/dL (0.57-1.11)
[2020-04-12 11:43] LABS: CALCIUM 13.7 mg/dL (8.4-10.2)
[2020-04-12] MEDS: MEROPENEM 500MG/ NS 50ML 50 ML IV SCH (12:10)
[2020-04-12 13:06] VITALS: BP 132/62
[2020-04-12] MEDS ORDERED: PAMIDRONATE DISODIUM 30 MG/VIAL IV ONE ×2 (14:30→14:45)
[2020-04-12 14:57] LABS: CALCIUM IONIZED 1.8 mmol/L (1.09-1.30)
[2020-04-12] MEDS ORDERED: FUROSEMIDE INJ 10 MG/ML 2 ML VIAL IV SCH ×2 (15:15)
[2020-04-12 15:25] LABS: FREE T4 (FREE THYROXINE) 0.93 ng/dL (0.8-1.8); THYROID STIMULATING HORMONE 0.322 uIU/mL (0.350-4.940)
[2020-04-12 16:02] VITALS: BP 132/62
[2020-04-12] MEDS ORDERED: PAMIDRONATE DISODIUM 30 MG in SODIUM CHLORIDE 0.9% 500ML 500 ML IV ONE (16:30)
[2020-04-12 18:53] VITALS: BP 129/71
[2020-04-12 20:00] VITALS: BP 146/68
[2020-04-12 21:15] VITALS: BP 146/68
[2020-04-12] MEDS: LORATADINE 10 MG TAB PO SCH (21:15)
[2020-04-12] MEDS: DOXEPIN HCL 25 MG CAP PO SCH (21:15)
[2020-04-12] MEDS: MECLIZINE HCL 12.5 MG TAB PO SCH (21:15)
[2020-04-12] MEDS: DICYCLOMINE HCL 20 MG TAB PO SCH (21:15)
[2020-04-12] MEDS: HYDROMORPHONE HCL 2 MG TAB PO SCH (21:15)
--- NOTE | 2020-04-12 21:15 | NUR ---
PATIENT IS RESTING IN BED IN STABLE CONDITION, NO SIGNS OF DISTRESS NOTED. IV FLUIDS ARE RUNNING AT ORDERED RATE AND PATIENT VOICES GENERALIZED PAIN AT A LEVEL OF 10, WILL BE PROMPTLY MEDICATED ORDERED. BED IS IN LOW POSITION, BOTH SIDE RAILS ARE UP, CALL LIGHT WITHIN REACH, CONTINUING TO MONITOR.
--- NOTE | 2020-04-12 21:20 | Consultation ---
DATE OF CONSULTATION: 04/12/2020 Endocrine Consultation This is a patient of Dr. Estuardo Wheeler. Thank you very much for referring this patient. HISTORY OF PRESENT ILLNESS: This is a 64-year-old white female who is referred to me for evaluation of acute hypercalcemia. The patient does not have history of any hypercalcemia in the past. In fact, she takes calcium and vitamin D tablets at home. The patient came to the hospital with history of altered mental status and severe dehydration. At the time of admission, her calcium was 16.4, and her BUN and creatinine were elevated. The patient was given normal saline and her calcium is around 13.7 now. She was also found to have high white count and UTI. The patient tells me that she had history of diabetes in the past. PHYSICAL EXAMINATION: GENERAL: Today, the patient is alert, awake. She is thin built. VITAL SIGNS: Her heart rate is around 70, blood pressure 130/80 mmHg. HEENT: Essentially unremarkable. NECK: Thyroid is palpable. Clinically, she is near-euthyroid. CHEST: Bilateral vesicular breathing. No rales. CARDIAC: First and second heart sounds. There is no 3rd or 4th heart sound. Ejection systolic murmur grade 2/6. IMPRESSION: Acute hypercalcemia, rule out hyperparathyroidism, dehydration, acute on chronic renal insufficiency, urinary tract infection, and high white count. PLAN: At this time is to continue the IV normal saline along with Lasix and also give her a dose of Aredia. We will also monitor her ionized calcium closely and order a serum PTH and PTH peptide levels. Thanks again for referring this patient. I will follow the patient with you. MD OLIVER Basurto/ANDRIY /[id number]
[2020-04-13] VITALS: BP 106/58
[2020-04-13] MEDS: MEROPENEM 500MG/ NS 50ML 50 ML IV SCH ×3 (01:00→22:58)
[2020-04-13 04:00] VITALS: BP 131/65
[2020-04-13] MEDS: SODIUM CHLORIDE 0.9% 1000ML 1,000 ML IV SCH ×3 (05:09→22:45)
[2020-04-13] MEDS: HYDROMORPHONE HCL 2 MG TAB PO SCH ×4 (06:11→18:22)
[2020-04-13 06:12] LABS: BASOPHILS # (AUTO) 0.1 (0.0-0.1); BASOPHILS % 0.9 % (0.0-1.0); EOSINOPHILS # (AUTO) 0.4 (0.0-0.4); EOSINOPHILS % 4.2 % (0.0-6.0); HEMATOCRIT 31.8 % (34.2-44.1); LYMPHOCYTES # (AUTO) 2.5 (1.0-3.2); LYMPHOCYTES % 27.6 % (18.0-39.1); MEAN CORPUSCULAR HEMOGLOBIN 29.9 pg (28-32); MEAN CORPUSCULAR HGB CONC 34.6 g/dL (31-35); MEAN CORPUSCULAR VOLUME 86.4 fL (81-99); MONOCYTES # (AUTO) 0.5 (0.2-0.8); MONOCYTES % 5.9 % (4.4-11.3); NEUTROPHILS # (AUTO) 5.5 (2.1-6.9); PLATELET COUNT 229 x10e3/uL (140-360); RED BLOOD COUNT 3.68 x10e6/uL (3.6-5.1); RED CELL DISTRIBUTION WIDTH 11.8 % (11.7-14.4)
[2020-04-13 06:29] LABS: ALBUMIN 3.2 g/dL (3.5-5.0); ALBUMIN/GLOBULIN RATIO 1.3 (0.8-2.0); ANION GAP 10.3 mmol/L (8-16); CALCIUM 12.3 mg/dL (8.4-10.2); CREATININE, SERUM 1.37 mg/dL (0.57-1.11)
[2020-04-13 06:30] LABS: POTASSIUM 2.3 mmol/L (3.5-5.1)
--- NOTE | 2020-04-13 07:08 | NUR ---
RECEIVED CALL FROM LAB REGARDING THE PATIENT'S POTASSIUM LEVEL OF 2.3. PAGED DR. Lm ALAMO IN REGARDS TO THE CRITICAL LAB, GAVE REPORT TO DAY NURSE ABOUT FOLLOWING UP WITH THE SITUATION.
[2020-04-13 08:12] VITALS: BP 110/60
[2020-04-13] MEDS ORDERED: POTASSIUM CHLORIDE 20 MEQ TAB CR PO ONE ×3 (08:50→12:30)
[2020-04-13] MEDS: CLOPIDOGREL BISULFATE 75 MG TAB PO SCH (09:55)
[2020-04-13] MEDS: PANTOPRAZOLE SOD 40 MG TABEC PO SCH (09:55)
[2020-04-13] MEDS: LOSARTAN POTASSIUM 100 MG TAB PO SCH (09:55)
[2020-04-13] MEDS: DILTIAZEM HCL 180 MG CAP ER PO SCH (09:55)
[2020-04-13] MEDS: DICYCLOMINE HCL 20 MG TAB PO SCH ×3 (09:55→21:00)
[2020-04-13] MEDS: ONDANSETRON HCL INJ 2MG/ML 2ML 2 MG/ML VIAL IV PRN (10:00)
[2020-04-13 12:16] VITALS: BP 95/54
[2020-04-13 16:24] VITALS: BP 109/69
[2020-04-13] MEDS ORDERED: HYDROMORPHONE HCL 2 MG TAB PO PRN (19:00)
[2020-04-13 20:00] VITALS: BP 97/51
--- NOTE | 2020-04-13 20:00 | NUR ---
INITIAL ASSESSMENT COMPLETE, CALL LIGHT IN REACH, PT AWAKE, NO DISTRESS NOTED, IV INFUSING, COVID IS PENDING, VS WNL
[2020-04-13] MEDS: MECLIZINE HCL 12.5 MG TAB PO SCH (21:00)
[2020-04-13] MEDS: DOXEPIN HCL 25 MG CAP PO SCH (21:00)
[2020-04-13] MEDS: LORATADINE 10 MG TAB PO SCH (21:00)
[2020-04-14] VITALS: BP 118/54
[2020-04-14 04:00] VITALS: BP 127/70
[2020-04-14 05:04] LABS: BASOPHILS # (AUTO) 0.1 (0.0-0.1); BASOPHILS % 0.9 % (0.0-1.0); EOSINOPHILS # (AUTO) 0.4 (0.0-0.4); EOSINOPHILS % 4.8 % (0.0-6.0); HEMATOCRIT 29.8 % (34.2-44.1); HEMOGLOBIN 10.1 g/dL (12.0-16.0); LYMPHOCYTES # (AUTO) 2.9 (1.0-3.2); LYMPHOCYTES % 32.1 % (18.0-39.1); MEAN CORPUSCULAR HEMOGLOBIN 29.9 pg (28-32); MEAN CORPUSCULAR HGB CONC 33.9 g/dL (31-35); MEAN CORPUSCULAR VOLUME 88.2 fL (81-99); MONOCYTES # (AUTO) 0.6 (0.2-0.8); MONOCYTES % 6.7 % (4.4-11.3); NEUTROPHILS # (AUTO) 4.9 (2.1-6.9); NEUTROPHILS % 55.1 % (38.7-80.0); PLATELET COUNT 212 x10e3/uL (140-360); RED BLOOD COUNT 3.38 x10e6/uL (3.6-5.1)
[2020-04-14 05:31] LABS: ANION GAP 7.2 mmol/L (8-16); CALCIUM 10.5 mg/dL (8.4-10.2); CREATININE, SERUM 1.03 mg/dL (0.57-1.11); POTASSIUM 3.2 mmol/L (3.5-5.1)
--- NOTE | 2020-04-14 05:49 | NUR ---
VS WNL, PT IN BED, SLEEPING THROUGHOUT THE NIGHT, CONTINUE TO MONITOR PT, NO DISTRESS NOTED, CALL LIGHT IN REACH
--- NOTE | 2020-04-14 07:10 | NUR ---
RCD PT AT BED PT IS ALERT AND ORIENTED ,IV PATENT BY SALINE FLUSH ,AND STARTED A NEW BAG BED LOW AND LOCKED CALL LIGHT IN REACH
[2020-04-14] MEDS: PANTOPRAZOLE SOD 40 MG TABEC PO SCH (07:30)
[2020-04-14] MEDS: SODIUM CHLORIDE 0.9% 1000ML 1,000 ML IV SCH (08:45)
[2020-04-14 08:46] VITALS: BP 100/58
[2020-04-14] MEDS: DILTIAZEM HCL 180 MG CAP ER PO SCH (09:00)
[2020-04-14] MEDS: DICYCLOMINE HCL 20 MG TAB PO SCH (09:00)
[2020-04-14] MEDS: CLOPIDOGREL BISULFATE 75 MG TAB PO SCH (09:00)
[2020-04-14] MEDS: LOSARTAN POTASSIUM 100 MG TAB PO SCH (09:00)
--- NOTE | 2020-04-14 10:15 | NUR ---
AC TO DR Shreyas ALAMO PAGED AND TALKED HIGINIO IN US REGARDING US PARATHYROID SHE SAID THEY HAVE LOTS OF PROCEDURE THEY CANNOT DO NOW
[2020-04-14] MEDS ORDERED: POTASSIUM CHLORIDE 10MEQ EA PO ONE (10:30)
[2020-04-14 11:30] VITALS: BP 115/72
--- NOTE | 2020-04-14 12:00 | NUR ---
PT REFUSED THE IV MEROPENEM
--- NOTE | 2020-04-14 12:18 | NUR ---
PT WENT HOME IN SAFE CONDITION WITH HER ,SHE FILLED THE DISCHARGE QUESTIONNAIRE
--- NOTE | 2020-05-01 23:48 | Discharge Summary ---
CHIEF COMPLAINT: Four-day history of intractable vomiting. FINAL DIAGNOSES: 1. Hypercalcemia, resolved. 2. Hypokalemia. 3. Diabetes type 2. 4. Acute kidney injury, resolving. DISPOSITION: Home. HOSPITAL COURSE: A 64-year-old female with known history of hypertension, diabetes type 2, COPD, systolic congestive heart failure, hyperlipidemia, chronic pain syndrome, brought to the ER with a 4-day history of intractable vomiting associated with generalized weakness. No debilitation. No chest pain or shortness of breath. No hematemesis or fever or chills. Workup and evaluation were conducted in the ER and admission was made for treatment regarding intractable vomiting, dehydration, findings of hypercalcemia, etiology uncertain, diabetes type 2, coronary artery disease, congestive heart failure. We will begin IV fluids. Monitor calcium levels. Check parathyroid level. Monitor the patient's blood sugars. With the elevated calcium, the patient was being seen by Endocrinology, Dr. Garvin and with his review, his impression was acute hypercalcemia, rule out hyperparathyroidism, dehydration, [id number] renal insufficiency, urinary tract infection, high white count. Recommend continuing the IV hydration. We will also give a dose of Aredia. Continue to monitor the calcium. We will be checking PTH and PTH peptide level. She was on the Med-Surg floor, receiving a cardiac diet. Daily medications are being continued. The patient was also given some medication for pain, antibiotics. Lab studies were being reviewed. Monitoring the patient's potassium as well as the calcium. Followup our Endocrinology as well with the elevated calcium. She is doing well. No acute distress. Calcium levels were falling. Calcium levels continued to be monitored. The patient shows stability, was cleared for discharge, and was able to be released home in good condition. IMAGING: Chest x-ray findings reveal mild bibasilar strandy opacities, favored represent atelectasis although pneumonia or viral pneumonia could be considered in the appropriate clinical setting. Chest CT reveals no acute thoracic process. Blood cultures were negative. LABORATORY STUDIES: Shows a CBC initial white cell count elevated at 25,200, initial H and H, which were stable. Followup white cell counts returned to normal status. H and H values continued to trend down to a final study of 10.1 and 29.8. Urinalysis; 1+ ketones, 6-10 rbc's per high-power field, 11-20 wbc's by high-power field, moderate amount of bacteria. Chemistry studies shows initial panel sodium to be low at 127, potassium is low at 3.2. Kidney function shows BUN 54, creatinine 2.47, calcium was only elevated at 16.4. BNP elevated at 147.5. Parathyroid hormone was only low at 7. Followup chemistries continued to show low electrolytes with a sodium of 128, potassium of 3. Kidney functions were showing some improvement with a BUN of 51, creatinine 1.78. Calciums continued to retreat on 04/12, the value was 11.8. Potassium continued to fall down to 2.3. Replenishment was initiated. Final potassium 3.2, final sodium 134, final BUN 30, creatinine 1.03, final calcium 10.5. As mentioned, she was cleared for discharge. She was released home. She will continue on her current diet. No equipments or supplies were necessary. No drain or [place] was needed. Activity level as directed by myself as well as by Dr. Garvin. CURRENT MEDICATIONS: She will continue to take: 1. ProAir HFA inhaler as directed. 2. Lipitor 40 mg p.o. daily. 3. Cetirizine 10 mg p.o. at bedtime. 4. Clopidogrel 75 mg p.o. daily. 5. Flexeril 10 mg q.i.d. 6. Restasis, one drop op b.i.d. 7. Dicyclomine 20 mg p.o. t.i.d. with meals. 8. Diltiazem 24-hour, 180 mg one tablet daily. 9. Doxepin 100 mg p.o. at bedtime. 10. Furosemide 40 mg p.o. daily. 11. Dilaudid 8 mg p.o. q.8. 12. Ipratropium and albuterol sulfate nebulizer treatments q.i.d. as needed. 13. Losartan/potassium 100 mg p.o. daily. 14. Meclizine 25 mg p.o. at bedtime. 15. Metformin 500 mg p.o. daily. 16. Nitroglycerin 0.4 mg sublingual p.r.n. 17. Zofran 4 mg p.o. t.i.d. 18. Aciphex 20 mg p.o. daily. 19. Imitrex 25 mg p.o. daily p.r.n. 20. Triamterene hydrochlorothiazide 37.5/25, 1 tablet p.o. She will be following back up with me in my office next 2-3 weeks or sooner, if she has recurrence of symptoms or she develops any other concerns as she finds troubling. Dictated by KARO Giron Estuardo Wheeler MD CC/MODL /[id number]
== END 2020-04-14 12:28 | disposition home or self-care (01) | DRG 640 ==
LOC: ER 21:55 → ERHOLD 04-12 00:36 → MED/SURG2 04-12 13:11
DX: E83.52 Hypercalcemia (principal); A41.9 Sepsis, unspecified organism; N39.0 Urinary tract infection, site not specified; E86.0 Dehydration; Z11.59 Encounter for screening for other viral diseases; E11.9 Type 2 diabetes mellitus without complications; Z66 Do not resuscitate; E87.6 Hypokalemia; E11.22 Type 2 diabetes mellitus with diabetic chronic kidney disease; I12.9 Hypertensive chronic kidney disease with stage 1 through stage 4 chronic kidney disease, or unspecified chronic kidney disease; N18.9 Chronic kidney disease, unspecified
CPT/HCPCS: 36415; 71045; 71250; 80048; 80053; 81001; 82164; 82310; 82378; 82550; 82553; 82948; 83519; 83605; 83690; 83880; 83970; 84439; 84443; 84484; 85025; 87040; 93005; 99284; J1940; J2185; J2405; J2430; J7030; J7040; J7050; U0002

== ENCOUNTER 2021-08-13 22:28 | Inpatient (IN) | payer OTHER ==
[~2021-08-13] VITALS: Ht 162.6 cm; Wt 53.1 kg
[2021-08-13] MEDS ORDERED: ONDANSETRON HCL INJ 2MG/ML 2ML 2 MG/ML VIAL IV STA (22:39)
[2021-08-13] MEDS ORDERED: SODIUM CHLORIDE 0.9% 1000ML 1,000 ML IV STA (22:39)
[2021-08-13 22:52] LABS: BASOPHILS # (AUTO) 0.1 (0.0-0.1); BASOPHILS % 0.3 % (0.0-1.0); EOSINOPHILS # (AUTO) 0.2 (0.0-0.4); EOSINOPHILS % 1.2 % (0.0-6.0); HEMATOCRIT 38.3 % (34.2-44.1); HEMOGLOBIN 13.1 g/dL (12.0-16.0); LYMPHOCYTES # (AUTO) 1.8 (1.0-3.2); LYMPHOCYTES % 12.3 % (18.0-39.1); MEAN CORPUSCULAR HEMOGLOBIN 29.5 pg (28-32); MEAN CORPUSCULAR HGB CONC 34.2 g/dL (31-35); MEAN CORPUSCULAR VOLUME 86.3 fL (81-99); MONOCYTES # (AUTO) 1.1 (0.2-0.8); MONOCYTES % 7.4 % (4.4-11.3); NEUTROPHILS # (AUTO) 11.5 (2.1-6.9); NEUTROPHILS % 77.7 % (38.7-80.0); PLATELET COUNT 363 x10e3/uL (140-360); RED BLOOD COUNT 4.44 x10e6/uL (3.6-5.1); RED CELL DISTRIBUTION WIDTH 12.9 % (11.7-14.4)
[2021-08-13] MEDS ORDERED: PROMETHAZINE HCL (IM) 25 MG/ML VIAL IM ONE ×2 (23:00→23:14)
[2021-08-13 23:16] LABS: ALBUMIN 4.2 g/dL (3.5-5.0); ALBUMIN/GLOBULIN RATIO 1.5 (0.8-2.0); CALCIUM 8.9 mg/dL (8.4-10.2); CREATININE, SERUM 2.19 mg/dL (0.57-1.11)
[2021-08-13 23:22] LABS: CREATINE KINASE MB 8.6 ng/mL (0-5.0)
[2021-08-13] MEDS ORDERED: PROMETHAZINE 25MG/ NS 50ML (IV) IV ONE (23:30)
[2021-08-14] VITALS (8 sets, daily range): BP systolic 70–125; BP diastolic 53–77
[2021-08-14] MEDS: SODIUM CHLORIDE 0.9% 1000ML 1,000 ML IV SCH ×3 (00:49→16:50)
[2021-08-14] MEDS ORDERED: FENTANYL CITRATE/PF 100MCG/2 ML INJ IV ONE (02:45)
[2021-08-14] MEDS ORDERED: FENTANYL CITRATE/PF 100MCG/2 ML INJ ONE (02:49)
[2021-08-14 03:02] LABS: CLARITY,URINE SL CLOUDY (CLEAR); COLOR,URINE YELLOW (YELLOW); KETONES,URINE TRACE (NEGATIVE); LEUKOCYTE ESTERASE ,URINE SMALL (NEGATIVE); NITRITE,URINE NEGATIVE (NEGATIVE); PROTEIN,URINE DIPSTICK TRACE (NEGATIVE); URINE UROBILINOGEN 0.2 mg/dL (0.2 - 1)
[2021-08-14 03:07] LABS: RBC,URINE 0-5 /HPF (0-5)
[2021-08-14 03:08] LABS: BACTERIA,URINE FEW /HPF; EPITHELIAL CELLS,URINE MODERATE /LPF
[2021-08-14] MEDS: ONDANSETRON HCL INJ 2MG/ML 2ML 2 MG/ML VIAL IV PRN (05:38)
[2021-08-14 06:11] LABS: BASOPHILS # (AUTO) 0.1 (0.0-0.1); BASOPHILS % 0.5 % (0.0-1.0); EOSINOPHILS # (AUTO) 0.2 (0.0-0.4); EOSINOPHILS % 1.7 % (0.0-6.0); HEMOGLOBIN 11.3 g/dL (12.0-16.0); LYMPHOCYTES # (AUTO) 1.9 (1.0-3.2); LYMPHOCYTES % 14.8 % (18.0-39.1); MEAN CORPUSCULAR HEMOGLOBIN 29.8 pg (28-32); MEAN CORPUSCULAR HGB CONC 33.2 g/dL (31-35); MEAN CORPUSCULAR VOLUME 89.7 fL (81-99); MONOCYTES # (AUTO) 0.8 (0.2-0.8); MONOCYTES % 6.4 % (4.4-11.3); NEUTROPHILS # (AUTO) 9.7 (2.1-6.9); NEUTROPHILS % 75.7 % (38.7-80.0); PLATELET COUNT 293 x10e3/uL (140-360); RED BLOOD COUNT 3.79 x10e6/uL (3.6-5.1)
[2021-08-14 06:38] LABS: ALBUMIN 3.4 g/dL (3.5-5.0); ALBUMIN/GLOBULIN RATIO 1.3 (0.8-2.0); CALCIUM 8.6 mg/dL (8.4-10.2); CREATININE, SERUM 1.61 mg/dL (0.57-1.11)
[2021-08-14] MEDS: Morphine 4mg Syringe 4 MG/ML INJ IV PRN ×2 (09:47→16:47)
[2021-08-14] MEDS ORDERED: HYDROMORPHONE HCL 2 MG TAB PO SCH (10:00)
[2021-08-14] MEDS ORDERED: NITROGLYCERIN 0.4 MG SUBL SL SCH (11:15)
[2021-08-14] MEDS ORDERED: FUROSEMIDE 40 MG TAB PO PRN (11:15)
[2021-08-14] MEDS ORDERED: ALBUTEROL SULFATE HFA 8GM INHALATION AEROSOL INH PRN (11:15)
[2021-08-14] MEDS ORDERED: SUMATRIPTAN SUCCINATE 25 MG TAB PO PRN (11:15)
[2021-08-14] MEDS ORDERED: POTASSIUM CHLORIDE 20MEQ/100ML 100 ML IV ONE (11:30)
[2021-08-14] MEDS: ONDANSETRON HCL 4 MG ORAL DISINTEGRATING TAB PO SCH ×2 (14:29→21:59)
[2021-08-14] MEDS: ALBUTEROL/IPRATROPIUM 3 ML NEB NEB SCH ×2 (15:10→19:38)
[2021-08-14] MEDS: DICYCLOMINE HCL 20 MG TAB PO SCH ×2 (16:50→21:26)
[2021-08-14] MEDS: DOXEPIN HCL 25 MG CAP PO SCH (21:00)
[2021-08-14] MEDS: MECLIZINE HCL 12.5 MG TAB PO SCH (21:59)
[2021-08-14] MEDS: LORATADINE 10 MG TAB PO SCH (21:59)
[2021-08-14] MEDS ORDERED: SODIUM CHLORIDE 0.9% 1000ML 250 ML IV ONE (23:55)
[2021-08-15] VITALS (7 sets, daily range): BP systolic 69–116; BP diastolic 41–89
[2021-08-15] MEDS: SODIUM CHLORIDE 0.9% 1000ML 1,000 ML IV SCH ×3 (01:01→15:50)
[2021-08-15] MEDS: Morphine 4mg Syringe 4 MG/ML INJ IV PRN ×5 (03:44→21:42)
[2021-08-15] MEDS: ONDANSETRON HCL INJ 2MG/ML 2ML 2 MG/ML VIAL IV PRN ×2 (05:49→22:53)
[2021-08-15] MEDS: ALBUTEROL/IPRATROPIUM 3 ML NEB NEB SCH ×4 (06:50→18:55)
[2021-08-15 07:01] LABS: ANION GAP 9.8 mmol/L (8-16); CALCIUM 7.3 mg/dL (8.4-10.2); CREATININE, SERUM 0.79 mg/dL (0.57-1.11); POTASSIUM 3.8 mmol/L (3.5-5.1)
[2021-08-15] MEDS: PANTOPRAZOLE SOD 40 MG TABEC PO SCH (08:49)
[2021-08-15] MEDS: ONDANSETRON HCL 4 MG ORAL DISINTEGRATING TAB PO SCH ×3 (08:49→21:42)
[2021-08-15] MEDS: CLOPIDOGREL BISULFATE 75 MG TAB PO SCH (08:49)
[2021-08-15] MEDS: DICYCLOMINE HCL 20 MG TAB PO SCH ×3 (08:49→21:42)
[2021-08-15] MEDS ORDERED: LOSARTAN POTASSIUM 100 MG TAB PO SCH (09:00)
[2021-08-15] MEDS ORDERED: TRIAMTERENE/HCTZ 37.5-25 MG TAB PO SCH (09:00)
[2021-08-15] MEDS ORDERED: PANTOPRAZOLE SOD 40 MG TABEC PO SCH (09:00)
[2021-08-15] MEDS ORDERED: DILTIAZEM HCL 180 MG CAP ER PO SCH (09:00)
[2021-08-15] MEDS: DOXEPIN HCL 25 MG CAP PO SCH (21:42)
[2021-08-15] MEDS: LORATADINE 10 MG TAB PO SCH (21:42)
[2021-08-15] MEDS: MECLIZINE HCL 12.5 MG TAB PO SCH (21:42)
[2021-08-16] VITALS: BP 98/64
[2021-08-16] MEDS: SODIUM CHLORIDE 0.9% 1000ML 1,000 ML IV SCH ×2 (02:00→09:27)
[2021-08-16 04:00] VITALS: BP 91/52
[2021-08-16] MEDS: ONDANSETRON HCL INJ 2MG/ML 2ML 2 MG/ML VIAL IV PRN (04:42)
[2021-08-16] MEDS: Morphine 4mg Syringe 4 MG/ML INJ IV PRN (04:42)
[2021-08-16] MEDS: ALBUTEROL/IPRATROPIUM 3 ML NEB NEB SCH ×3 (07:00→15:00)
[2021-08-16 07:14] LABS: BASOPHILS # (AUTO) 0.1 (0.0-0.1); BASOPHILS % 0.7 % (0.0-1.0); EOSINOPHILS # (AUTO) 0.3 (0.0-0.4); EOSINOPHILS % 3.6 % (0.0-6.0); HEMATOCRIT 27.8 % (34.2-44.1); HEMOGLOBIN 9.1 g/dL (12.0-16.0); LYMPHOCYTES # (AUTO) 1.4 (1.0-3.2); LYMPHOCYTES % 16.2 % (18.0-39.1); MEAN CORPUSCULAR HEMOGLOBIN 29.6 pg (28-32); MEAN CORPUSCULAR HGB CONC 32.7 g/dL (31-35); MEAN CORPUSCULAR VOLUME 90.6 fL (81-99); MONOCYTES # (AUTO) 0.6 (0.2-0.8); NEUTROPHILS # (AUTO) 6.1 (2.1-6.9); NEUTROPHILS % 71.8 % (38.7-80.0); PLATELET COUNT 232 x10e3/uL (140-360); RED BLOOD COUNT 3.07 x10e6/uL (3.6-5.1); RED CELL DISTRIBUTION WIDTH 13.5 % (11.7-14.4)
[2021-08-16] MEDS: PANTOPRAZOLE SOD 40 MG TABEC PO SCH (07:30)
[2021-08-16 07:40] LABS: ANION GAP 9.2 mmol/L (8-16); CALCIUM 7.2 mg/dL (8.4-10.2); CREATININE, SERUM 0.75 mg/dL (0.57-1.11); POTASSIUM 4.2 mmol/L (3.5-5.1)
[2021-08-16 07:50] VITALS: BP 135/86
[2021-08-16] MEDS: CLOPIDOGREL BISULFATE 75 MG TAB PO SCH (09:27)
[2021-08-16] MEDS: DICYCLOMINE HCL 20 MG TAB PO SCH (09:27)
[2021-08-16] MEDS: ONDANSETRON HCL 4 MG ORAL DISINTEGRATING TAB PO SCH (09:27)
[2021-08-16 12:30] VITALS: BP 72/49
[2021-08-16] MEDS ORDERED: ALBUMIN 25% 25GM 100ML 0.25 GM/ML BTL IV ONE (13:30)
[2021-08-16] MEDS ORDERED: ALBUMIN 25% 25GM 100ML 100 ML IV ONE (13:45)
[2021-08-16 15:45] VITALS: BP 97/57
== END 2021-08-16 17:41 | disposition home health service (06) | DRG 683 ==
LOC: ER 22:35 → ERHOLD 23:58 → MED/SURG3 08-14 08:30 → OBSVTOIN 08-15 12:36
DX: N17.9 Acute kidney failure, unspecified (principal); E87.1 Hypo-osmolality and hyponatremia; E86.0 Dehydration; J44.9 Chronic obstructive pulmonary disease, unspecified; I25.10 Atherosclerotic heart disease of native coronary artery without angina pectoris; Z20.822 Contact with and (suspected) exposure to COVID-19
CPT/HCPCS: 36415; 74176; 80048; 80053; 81001; 82550; 82553; 82948; 83690; 84484; 85025; 93005; 94640; 94799; G0378; J2270; J2405; J2550; J3010; J3480; J7030; P9047; Q0162; U0002

== ENCOUNTER 2021-08-25 03:02 | Emergency (ER) | payer OTHER ==
[~2021-08-25] VITALS: Ht 162.6 cm; Wt 53.1 kg
[2021-08-25 04:29] LABS: BASOPHILS # (AUTO) 0.1 (0.0-0.1); BASOPHILS % 1.2 % (0.0-1.0); EOSINOPHILS # (AUTO) 0.2 (0.0-0.4); EOSINOPHILS % 3.1 % (0.0-6.0); HEMATOCRIT 34.2 % (34.2-44.1); LYMPHOCYTES # (AUTO) 1.1 (1.0-3.2); LYMPHOCYTES % 16.5 % (18.0-39.1); MEAN CORPUSCULAR HEMOGLOBIN 29.9 pg (28-32); MEAN CORPUSCULAR HGB CONC 32.2 g/dL (31-35); MEAN CORPUSCULAR VOLUME 92.9 fL (81-99); MONOCYTES # (AUTO) 0.8 (0.2-0.8); MONOCYTES % 11.5 % (4.4-11.3); NEUTROPHILS # (AUTO) 4.6 (2.1-6.9); NEUTROPHILS % 67.4 % (38.7-80.0); PLATELET COUNT 362 x10e3/uL (140-360); RED BLOOD COUNT 3.68 x10e6/uL (3.6-5.1); RED CELL DISTRIBUTION WIDTH 13.8 % (11.7-14.4)
[2021-08-25 04:42] LABS: ALBUMIN 3.9 g/dL (3.5-5.0); ALBUMIN/GLOBULIN RATIO 1.4 (0.8-2.0); ANION GAP 15.9 mmol/L (8-16); CREATININE, SERUM 0.74 mg/dL (0.57-1.11); POTASSIUM 3.9 mmol/L (3.5-5.1)
[2021-08-25] MEDS ORDERED: KETOROLAC TROMETHAMINE 30 MG/ML VIAL IV STA (05:10)
[2021-08-25 05:54] VITALS: BP 157/35
== END 2021-08-25 05:35 | disposition home or self-care (01) ==
LOC: ER 03:27
DX: R60.9 Edema, unspecified (principal); M79.605 Pain in left leg; M79.604 Pain in right leg; M79.89 Other specified soft tissue disorders; E11.9 Type 2 diabetes mellitus without complications; J44.9 Chronic obstructive pulmonary disease, unspecified; I50.9 Heart failure, unspecified; Z95.1 Presence of aortocoronary bypass graft
CPT/HCPCS: 36415; 80053; 83880; 85025; 93970; 99284; J1885

== ENCOUNTER 2021-12-12 23:17 | Emergency (ER) | payer MEDICARE, OTHER ==
[~2021-12-12] VITALS: Ht 162.6 cm; Wt 53.1 kg
[2021-12-12] MEDS ORDERED: MECLIZINE HCL 12.5 MG TAB PO ONE (23:45)
[2021-12-13] MEDS ORDERED: SUMATRIPTAN SUCCINATE 25 MG TAB PO ONE
[2021-12-13 00:03] LABS: BASOPHILS % 0.3 % (0.0-1.0); EOSINOPHILS % 0.2 % (0.0-6.0); HEMATOCRIT 27.4 % (34.2-44.1); HEMOGLOBIN 8.8 g/dL (12.0-16.0); LYMPHOCYTES # (AUTO) 0.9 (1.0-3.2); LYMPHOCYTES % 7.5 % (18.0-39.1); MEAN CORPUSCULAR HEMOGLOBIN 29.5 pg (28-32); MEAN CORPUSCULAR HGB CONC 32.1 g/dL (31-35); MEAN CORPUSCULAR VOLUME 91.9 fL (81-99); MONOCYTES # (AUTO) 0.5 (0.2-0.8); MONOCYTES % 4.3 % (4.4-11.3); NEUTROPHILS # (AUTO) 10.6 (2.1-6.9); NEUTROPHILS % 87.2 % (38.7-80.0); PLATELET COUNT 393 x10e3/uL (140-360); RED BLOOD COUNT 2.98 x10e6/uL (3.6-5.1); RED CELL DISTRIBUTION WIDTH 13.2 % (11.7-14.4)
[2021-12-13 00:09] LABS: CLARITY,URINE CLEAR (CLEAR); COLOR,URINE YELLOW (YELLOW); KETONES,URINE NEGATIVE (NEGATIVE); LEUKOCYTE ESTERASE ,URINE SMALL (NEGATIVE); NITRITE,URINE NEGATIVE (NEGATIVE); PROTEIN,URINE DIPSTICK TRACE (NEGATIVE); URINE UROBILINOGEN 0.2 mg/dL (0.2 - 1)
[2021-12-13] MEDS ORDERED: ACETAMINOPHEN 325 MG TAB ONE (00:12)
[2021-12-13 00:14] LABS: BACTERIA,URINE FEW /HPF; EPITHELIAL CELLS,URINE FEW /LPF; RBC,URINE 0-5 /HPF (0-5)
[2021-12-13 00:21] LABS: ALBUMIN 3.5 g/dL (3.5-5.0); ALBUMIN/GLOBULIN RATIO 1.2 (0.8-2.0); ANION GAP 14.9 mmol/L (8-16); CALCIUM 8.7 mg/dL (8.4-10.2); CREATININE, SERUM 0.92 mg/dL (0.57-1.11); POTASSIUM 3.9 mmol/L (3.5-5.1)
[2021-12-13 00:28] LABS: CREATINE KINASE MB 2.2 ng/mL (0-5.0)
[2021-12-13 01:38] VITALS: BP 133/78
== END 2021-12-13 01:35 | disposition home or self-care (01) ==
LOC: ER 23:30
DX: G43.909 Migraine, unspecified, not intractable, without status migrainosus (principal); N39.0 Urinary tract infection, site not specified; E11.65 Type 2 diabetes mellitus with hyperglycemia; R42 Dizziness and giddiness; J44.9 Chronic obstructive pulmonary disease, unspecified; I50.9 Heart failure, unspecified; I25.2 Old myocardial infarction; Z95.1 Presence of aortocoronary bypass graft; Z98.0 Intestinal bypass and anastomosis status
CPT/HCPCS: 36415; 70450; 71045; 80053; 81001; 82550; 82553; 84484; 85025; 93005; 99285; J8597

== ENCOUNTER 2022-01-22 21:40 | Emergency (ER) | payer MEDICARE, OTHER ==
[~2022-01-22] VITALS: Ht 162.6 cm; Wt 53.1 kg
[~2022-01-22 21:40] MED LIST changes: +IBUPROFEN800 MG PO
== END 2022-01-22 23:33 | disposition home or self-care (01) ==
LOC: ER 22:00
DX: J02.0 Streptococcal pharyngitis (principal); H92.01 Otalgia, right ear; I10 Essential (primary) hypertension; J44.9 Chronic obstructive pulmonary disease, unspecified; I50.9 Heart failure, unspecified; G40.909 Epilepsy, unspecified, not intractable, without status epilepticus; K21.9 Gastro-esophageal reflux disease without esophagitis; M79.7 Fibromyalgia; I25.2 Old myocardial infarction
CPT/HCPCS: 83518; 99282

== ENCOUNTER 2022-03-15 16:32 | Inpatient (IN) | payer MEDICARE, OTHER ==
[~2022-03-15] VITALS: Ht 162.6 cm; Wt 53.1 kg
[2022-03-15] MEDS ORDERED: ALBUTEROL/IPRATROPIUM 3 ML NEB NEB ONE (17:15)
[2022-03-15] MEDS ORDERED: METHYLPREDNISOLONE SOD SUCC 125 MG/2ML VIAL IV SCH (17:20)
[2022-03-15 18:17] LABS: HEMATOCRIT 38.8 % (34.2-44.1); HEMOGLOBIN 12.9 g/dL (12.0-16.0); MEAN CORPUSCULAR HEMOGLOBIN 27.2 pg (28-32); MEAN CORPUSCULAR VOLUME 81.7 fL (81-99); RED BLOOD COUNT 4.75 x10e6/uL (3.6-5.1)
[2022-03-15 18:18] LABS: BASOPHILS % 0.4 % (0.0-1.0); EOSINOPHILS # (AUTO) 0.1 (0.0-0.4); EOSINOPHILS % 1.8 % (0.0-6.0); LYMPHOCYTES % 12.9 % (18.0-39.1); MEAN CORPUSCULAR HGB CONC 33.2 g/dL (31-35); MONOCYTES # (AUTO) 0.5 (0.2-0.8); MONOCYTES % 6.9 % (4.4-11.3); NEUTROPHILS # (AUTO) 5.9 (2.1-6.9); NEUTROPHILS % 77.7 % (38.7-80.0); PLATELET COUNT 288 x10e3/uL (140-360); RED CELL DISTRIBUTION WIDTH 15.4 % (11.7-14.4)
[2022-03-15 18:44] LABS: ALBUMIN/GLOBULIN RATIO 0.9 (0.8-2.0); ANION GAP 21.3 mmol/L (8-16); CALCIUM 9.4 mg/dL (8.4-10.2); CREATININE, SERUM 3.02 mg/dL (0.57-1.11)
[2022-03-15] MEDS ORDERED: SODIUM CHLORIDE 0.9% 1000ML 1,000 ML ONE (18:57)
[2022-03-15 19:08] LABS: POTASSIUM 2.3 mmol/L (3.5-5.1)
[2022-03-15] MEDS ORDERED: SODIUM CHLORIDE 0.9% 1000ML 1,000 ML IV ONE ×2 (19:15→22:00)
[2022-03-15] MEDS ORDERED: POTASSIUM CHLORIDE 20 MEQ TAB CR PO STA (19:21)
[2022-03-15] MEDS ORDERED: DEXTROSE 50% SYRINGE 50 ML IV PRN (19:30)
[2022-03-15] MEDS: POTASSIUM CHLORIDE 10MEQ/100ML 100 ML IV SCH ×2 (19:38→20:45)
[2022-03-15] MEDS: INSULIN REGULAR, HUMAN 100 UNIT/1 ML SQ SCH (20:49)
[2022-03-15] MEDS: SODIUM CHLORIDE 0.9% 1000ML 1,000 ML IV SCH (21:19)
[2022-03-15 21:30] LABS: CLARITY,URINE CLEAR (CLEAR); COLOR,URINE YELLOW (YELLOW); KETONES,URINE NEGATIVE (NEGATIVE); LEUKOCYTE ESTERASE ,URINE 2+ (NEGATIVE); NITRITE,URINE NEGATIVE (NEGATIVE); PROTEIN,URINE DIPSTICK NEGATIVE (NEGATIVE); URINE UROBILINOGEN 0.2 mg/dL (0.2 - 1)
[2022-03-15 21:38] LABS: WBC,URINE (MAN) 21-50 /HPF (0-5)
[2022-03-15 21:39] LABS: BACTERIA,URINE MANY /HPF; EPITHELIAL CELLS,URINE MANY /LPF; RENAL EPITHELIAL CELLS,URINE FEW; TRANSITIONAL EPI CELLS,URINE FEW
[2022-03-15] MEDS: ALBUTEROL/IPRATROPIUM 3 ML NEB NEB SCH (23:00)
[2022-03-15 23:17] LABS: CREATINE KINASE 58 IU/L (29-168)
[2022-03-16] VITALS (11 sets, daily range): BP systolic 94–117; BP diastolic 56–78
[2022-03-16] MEDS: ALBUTEROL/IPRATROPIUM 3 ML NEB NEB SCH ×6 (03:00→23:00)
[2022-03-16 03:59] LABS: CREATINE KINASE MB 2.7 ng/mL (0-5.0)
[2022-03-16] MEDS: METHYLPREDNISOLONE SOD SUCC 125 MG/2ML VIAL IV SCH ×2 (05:26→16:07)
[2022-03-16] MEDS: SODIUM CHLORIDE 0.9% 1000ML 1,000 ML IV SCH ×2 (05:26→12:02)
[2022-03-16] MEDS: HYDROMORPHONE 1MG/1ML INJ IV PRN ×4 (05:40→20:48)
[2022-03-16] MEDS: INSULIN REGULAR, HUMAN 100 UNIT/1 ML SQ SCH ×4 (07:30→20:47)
[2022-03-16] MEDS: SUMATRIPTAN SUCCINATE 25 MG TAB PO PRN (08:40)
[2022-03-16 12:00] LABS: BASOPHILS % 0.1 % (0.0-1.0); HEMATOCRIT 36.4 % (34.2-44.1); HEMOGLOBIN 11.5 g/dL (12.0-16.0); LYMPHOCYTES # (AUTO) 0.5 (1.0-3.2); LYMPHOCYTES % 5.8 % (18.0-39.1); MEAN CORPUSCULAR HEMOGLOBIN 27.2 pg (28-32); MEAN CORPUSCULAR HGB CONC 31.6 g/dL (31-35); MEAN CORPUSCULAR VOLUME 86.1 fL (81-99); MONOCYTES # (AUTO) 0.1 (0.2-0.8); MONOCYTES % 0.7 % (4.4-11.3); NEUTROPHILS # (AUTO) 7.5 (2.1-6.9); NEUTROPHILS % 92.8 % (38.7-80.0); PLATELET COUNT 245 x10e3/uL (140-360); RED BLOOD COUNT 4.23 x10e6/uL (3.6-5.1); RED CELL DISTRIBUTION WIDTH 15.5 % (11.7-14.4)
[2022-03-16 12:35] LABS: CALCIUM 8.1 mg/dL (8.4-10.2); CREATININE, SERUM 1.9 mg/dL (0.57-1.11)
[2022-03-16 12:44] LABS: CREATINE KINASE MB 3.1 ng/mL (0-5.0)
[2022-03-16] MEDS ORDERED: POTASSIUM CHLORIDE 10MEQ EA PO NR (14:00)
[2022-03-16] MEDS ORDERED: POTASSIUM CHLORIDE 10MEQ EA PO ONE (20:00)
[2022-03-16] MEDS: ONDANSETRON HCL INJ 2MG/ML 2ML 2 MG/ML VIAL IV PRN (20:48)
[2022-03-17] VITALS (7 sets, daily range): BP systolic 90–150; BP diastolic 60–89
[2022-03-17] MEDS: HYDROMORPHONE 1MG/1ML INJ IV PRN ×4 (02:10→21:35)
[2022-03-17] MEDS: ONDANSETRON HCL INJ 2MG/ML 2ML 2 MG/ML VIAL IV PRN ×2 (02:10→21:36)
[2022-03-17] MEDS: ALBUTEROL/IPRATROPIUM 3 ML NEB NEB SCH ×7 (02:40→23:00)
[2022-03-17] MEDS: METHYLPREDNISOLONE SOD SUCC 125 MG/2ML VIAL IV SCH ×2 (05:00→17:18)
[2022-03-17] MEDS: SODIUM CHLORIDE 0.9% 1000ML 1,000 ML IV SCH ×2 (05:20→17:15)
[2022-03-17] MEDS: INSULIN REGULAR, HUMAN 100 UNIT/1 ML SQ SCH ×4 (07:30→21:00)
[2022-03-17 07:38] LABS: BASOPHILS % 0.1 % (0.0-1.0); HEMATOCRIT 29.2 % (34.2-44.1); HEMOGLOBIN 9.7 g/dL (12.0-16.0); LYMPHOCYTES # (AUTO) 0.6 (1.0-3.2); LYMPHOCYTES % 3.8 % (18.0-39.1); MEAN CORPUSCULAR HEMOGLOBIN 27.2 pg (28-32); MEAN CORPUSCULAR HGB CONC 33.2 g/dL (31-35); MEAN CORPUSCULAR VOLUME 81.8 fL (81-99); MONOCYTES # (AUTO) 0.4 (0.2-0.8); MONOCYTES % 2.7 % (4.4-11.3); NEUTROPHILS # (AUTO) 14.3 (2.1-6.9); NEUTROPHILS % 92.8 % (38.7-80.0); PLATELET COUNT 267 x10e3/uL (140-360); RED BLOOD COUNT 3.57 x10e6/uL (3.6-5.1); RED CELL DISTRIBUTION WIDTH 15.4 % (11.7-14.4)
[2022-03-17] MEDS: PANTOPRAZOLE SOD 40 MG TABEC PO SCH (08:00)
[2022-03-17 08:02] LABS: ANION GAP 12.2 mmol/L (8-16); CALCIUM 7.9 mg/dL (8.4-10.2); CREATININE, SERUM 1.42 mg/dL (0.57-1.11); MAGNESIUM 1.9 MG/DL (1.3-2.1); PHOSPHORUS 2.1 MG/DL (2.3-4.7); POTASSIUM 3.2 mmol/L (3.5-5.1)
[2022-03-17] MEDS ORDERED: OYST-CAL-D 500MG TABLET PO NR (10:30)
[2022-03-17] MEDS ORDERED: POTASSIUM CHLORIDE 20 MEQ TAB CR PO NR ×2 (10:45→12:15)
[2022-03-17] MEDS ORDERED: SODIUM PHOSPHATE IN 0.9 % NACL 15 MMOL in SODIUM CHLORIDE 0.9% 250ML 250 ML IV ONE ×2 (11:00)
[2022-03-17 11:02] LABS: LYMPHOCYTES % (MANUAL) 2 % (19-48); MONOCYTES % (MANUAL) 2 % (3.4-9.0); NEUTROPHILS % (MANUAL) 96 % (40-74); PLATELET ESTIMATE ADEQUATE
[2022-03-17 11:03] LABS: PLATELET MORPHOLOGY COMMENT FEW GIANT
[2022-03-17 11:04] LABS: HYPOCHROMASIA SLIGHT
[2022-03-17] MEDS: NITROFURANTOIN MACROCRYSTALS 100 MG CAP PO SCH ×2 (11:23→17:16)
[2022-03-17] MEDS ORDERED: SUMATRIPTAN SUCCINATE 25 MG TAB PO PRN (12:00)
[2022-03-18] VITALS (9 sets, daily range): BP systolic 103–170; BP diastolic 71–113
[2022-03-18] MEDS: SUMATRIPTAN SUCCINATE 25 MG TAB PO PRN (00:05)
[2022-03-18] MEDS: SODIUM CHLORIDE 0.9% 1000ML 1,000 ML IV SCH ×2 (00:36→08:37)
[2022-03-18] MEDS: ALBUTEROL/IPRATROPIUM 3 ML NEB NEB SCH ×3 (03:00→10:55)
[2022-03-18] MEDS: METHYLPREDNISOLONE SOD SUCC 125 MG/2ML VIAL IV SCH ×2 (04:52→17:02)
[2022-03-18] MEDS: HYDROMORPHONE 1MG/1ML INJ IV PRN ×5 (04:53→21:20)
[2022-03-18] MEDS: ONDANSETRON HCL INJ 2MG/ML 2ML 2 MG/ML VIAL IV PRN ×2 (04:53→08:56)
[2022-03-18 06:05] LABS: ALBUMIN 3.5 g/dL (3.5-5.0); ANION GAP 16.3 mmol/L (8-16); CALCIUM 8.3 mg/dL (8.4-10.2); CREATININE, SERUM 1.36 mg/dL (0.57-1.11); MAGNESIUM 1.6 MG/DL (1.3-2.1); PHOSPHORUS 2.4 MG/DL (2.3-4.7); POTASSIUM 4.3 mmol/L (3.5-5.1)
[2022-03-18 06:41] LABS: FERRITIN 73.14 ng/mL (4.63-204.00)
[2022-03-18 06:53] LABS: BASOPHILS % 0.1 % (0.0-1.0); HEMATOCRIT 37.1 % (34.2-44.1); HEMOGLOBIN 11.6 g/dL (12.0-16.0); LYMPHOCYTES # (AUTO) 0.8 (1.0-3.2); LYMPHOCYTES % 4.5 % (18.0-39.1); MEAN CORPUSCULAR HEMOGLOBIN 27.2 pg (28-32); MEAN CORPUSCULAR HGB CONC 31.3 g/dL (31-35); MEAN CORPUSCULAR VOLUME 86.9 fL (81-99); MONOCYTES # (AUTO) 0.4 (0.2-0.8); MONOCYTES % 2.3 % (4.4-11.3); NEUTROPHILS # (AUTO) 17.1 (2.1-6.9); NEUTROPHILS % 92.5 % (38.7-80.0); PLATELET COUNT 289 x10e3/uL (140-360); RED BLOOD COUNT 4.27 x10e6/uL (3.6-5.1); RED CELL DISTRIBUTION WIDTH 16.2 % (11.7-14.4)
[2022-03-18] MEDS: INSULIN REGULAR, HUMAN 100 UNIT/1 ML SQ SCH ×4 (07:30→21:00)
[2022-03-18] MEDS: PANTOPRAZOLE SOD 40 MG TABEC PO SCH (08:37)
[2022-03-18] MEDS: NITROFURANTOIN MACROCRYSTALS 100 MG CAP PO SCH ×2 (08:37→17:02)
[2022-03-18] MEDS ORDERED: ALBUTEROL/IPRATROPIUM 3 ML NEB NEB PRN (15:45)
[2022-03-18] MEDS ORDERED: MAGNESIUM SULFATE 2GM/50ML 50 ML IV ONE (17:00)
[2022-03-19] VITALS (7 sets, daily range): BP systolic 128–172; BP diastolic 77–97
[2022-03-19] MEDS: HYDROMORPHONE 1MG/1ML INJ IV PRN ×3 (01:20→09:57)
[2022-03-19] MEDS: METHYLPREDNISOLONE SOD SUCC 125 MG/2ML VIAL IV SCH (05:00)
[2022-03-19 06:51] LABS: CALCIUM 7.8 mg/dL (8.4-10.2); CREATININE, SERUM 1.33 mg/dL (0.57-1.11); MAGNESIUM 1.7 MG/DL (1.3-2.1)
[2022-03-19] MEDS: INSULIN REGULAR, HUMAN 100 UNIT/1 ML SQ SCH (07:30)
[2022-03-19] MEDS: PANTOPRAZOLE SOD 40 MG TABEC PO SCH (09:55)
[2022-03-19] MEDS: NITROFURANTOIN MACROCRYSTALS 100 MG CAP PO SCH (09:55)
[2022-03-19] MEDS: ONDANSETRON HCL INJ 2MG/ML 2ML 2 MG/ML VIAL IV PRN (09:57)
[2022-03-19] MEDS ORDERED: MAGNESIUM OXIDE 400 MG TAB PO ONE (17:00)
== END 2022-03-19 16:58 | disposition home or self-care (01) | DRG 640 ==
LOC: ER 17:07 → ERHOLD 20:38 → MED/SURG2 22:55 → OBSVTOIN 03-16 10:39
DX: E87.1 Hypo-osmolality and hyponatremia (principal); N17.0 Acute kidney failure with tubular necrosis; J44.1 Chronic obstructive pulmonary disease with (acute) exacerbation; N39.0 Urinary tract infection, site not specified; R55 Syncope and collapse; Z99.81 Dependence on supplemental oxygen; I11.0 Hypertensive heart disease with heart failure; I50.9 Heart failure, unspecified; E11.9 Type 2 diabetes mellitus without complications; B96.20 Unspecified Escherichia coli [E. coli] as the cause of diseases classified elsewhere; E83.42 Hypomagnesemia; E87.6 Hypokalemia; E83.39 Other disorders of phosphorus metabolism; Z95.1 Presence of aortocoronary bypass graft; Z87.891 Personal history of nicotine dependence; T39.395A Adverse effect of other nonsteroidal anti-inflammatory drugs [NSAID], initial encounter; Z88.1 Allergy status to other antibiotic agents; Z88.0 Allergy status to penicillin; Z88.6 Allergy status to analgesic agent; Z91.041 Radiographic dye allergy status; Z88.5 Allergy status to narcotic agent; Z88.2 Allergy status to sulfonamides; Z88.8 Allergy status to other drugs, medicaments and biological substances; Z91.048 Other nonmedicinal substance allergy status; Z86.73 Personal history of transient ischemic attack (TIA), and cerebral infarction without residual deficits; Z20.822 Contact with and (suspected) exposure to COVID-19; Z84.1 Family history of disorders of kidney and ureter
CPT/HCPCS: 36415; 70450; 71045; 80048; 80053; 81001; 82270; 82550; 82553; 82607; 82728; 82746; 82948; 83540; 83735; 83930; 83935; 84100; 84466; 84484; 85025; 85045; 87086; 87186; 93005; 93306; 94640; 94799; 97139; 99285; G0378; J1170; J1817; J2405; J2930; J3475; J3480; J7030; J7050

== ENCOUNTER 2022-03-28 13:06 | Inpatient (IN) | payer MEDICARE, OTHER ==
[2022-03-28] MEDS ORDERED: METHYLPREDNISOLONE SOD SUCC 125 MG/2ML VIAL IV ONE (13:45)
[2022-03-28 13:52] LABS: BASOPHILS % 0.1 % (0.0-1.0); EOSINOPHILS % 0.3 % (0.0-6.0); HEMATOCRIT 29.6 % (34.2-44.1); HEMOGLOBIN 9.3 g/dL (12.0-16.0); LYMPHOCYTES # (AUTO) 0.5 (1.0-3.2); LYMPHOCYTES % 5.3 % (18.0-39.1); MEAN CORPUSCULAR HEMOGLOBIN 26.9 pg (28-32); MEAN CORPUSCULAR HGB CONC 31.4 g/dL (31-35); MEAN CORPUSCULAR VOLUME 85.5 fL (81-99); MONOCYTES # (AUTO) 0.5 (0.2-0.8); MONOCYTES % 5.3 % (4.4-11.3); NEUTROPHILS # (AUTO) 7.8 (2.1-6.9); NEUTROPHILS % 88.8 % (38.7-80.0); PLATELET COUNT 176 x10e3/uL (140-360); RED BLOOD COUNT 3.46 x10e6/uL (3.6-5.1); RED CELL DISTRIBUTION WIDTH 17.4 % (11.7-14.4)
[2022-03-28 14:10] LABS: ALBUMIN 3.1 g/dL (3.5-5.0); ALBUMIN/GLOBULIN RATIO 0.8 (0.8-2.0); ANION GAP 11.3 mmol/L (8-16); CALCIUM 8.3 mg/dL (8.4-10.2); CREATININE, SERUM 1.02 mg/dL (0.57-1.11); POTASSIUM 3.3 mmol/L (3.5-5.1)
[2022-03-28] MEDS: ALBUTEROL/IPRATROPIUM 3 ML NEB NEB SCH ×3 (15:45→23:14)
[2022-03-28] MEDS ORDERED: HYDROMORPHONE HCL 2 MG TAB PO ONE (16:15)
[2022-03-28] MEDS ORDERED: CLONIDINE HCL0.1 MG PO (20:26)
[2022-03-28] MEDS ORDERED: HYDROMORPHONE HC8 MG PO (20:26)
[2022-03-28] MEDS ORDERED: CARVEDILOL25 MG PO (20:26)
[2022-03-28] MEDS ORDERED: LOSARTAN POTASS25 MG PO (20:26)
[2022-03-28] MEDS ORDERED: CLOPIDOGREL75 MG PO (20:26)
[2022-03-28] MEDS ORDERED: FUROSEMIDE40 MG PO (20:26)
[2022-03-28] MEDS ORDERED: ONDANSETRON HCL8 MG PO (20:26)
[2022-03-28 20:30] VITALS: BP 140/70
[2022-03-28] MEDS: ONDANSETRON HCL 4 MG ORAL DISINTEGRATING TAB PO SCH (20:30)
[2022-03-28] MEDS: HYDROMORPHONE HCL 2 MG TAB PO SCH (21:00)
[2022-03-28] MEDS: CARVEDILOL 12.5 MG TAB PO SCH (21:17)
[2022-03-29] VITALS: BP 154/74
[2022-03-29] MEDS: ALBUTEROL/IPRATROPIUM 3 ML NEB NEB SCH ×2 (03:00→06:31)
[2022-03-29 04:00] VITALS: BP 142/97
[2022-03-29 06:11] LABS: HEMATOCRIT 27.3 % (34.2-44.1); HEMOGLOBIN 8.8 g/dL (12.0-16.0); LYMPHOCYTES # (AUTO) 0.4 (1.0-3.2); LYMPHOCYTES % 5.8 % (18.0-39.1); MEAN CORPUSCULAR HEMOGLOBIN 26.9 pg (28-32); MEAN CORPUSCULAR HGB CONC 32.2 g/dL (31-35); MEAN CORPUSCULAR VOLUME 83.5 fL (81-99); MONOCYTES # (AUTO) 0.1 (0.2-0.8); MONOCYTES % 2.3 % (4.4-11.3); NEUTROPHILS # (AUTO) 5.7 (2.1-6.9); NEUTROPHILS % 91.4 % (38.7-80.0); PLATELET COUNT 177 x10e3/uL (140-360); RED BLOOD COUNT 3.27 x10e6/uL (3.6-5.1); RED CELL DISTRIBUTION WIDTH 17.2 % (11.7-14.4)
[2022-03-29 06:37] LABS: ANION GAP 11.3 mmol/L (8-16); CALCIUM 8.3 mg/dL (8.4-10.2); CREATININE, SERUM 0.9 mg/dL (0.57-1.11); POTASSIUM 3.3 mmol/L (3.5-5.1)
[2022-03-29] MEDS ORDERED: LEVOFLOXACIN 500MG/D5W 100ML 100 ML IV SCH (08:15)
[2022-03-29] MEDS ORDERED: DEXTROSE 50% SYRINGE 50 ML IV PRN (08:30)
[2022-03-29 08:39] VITALS: BP 115/90
[2022-03-29] MEDS ORDERED: LOSARTAN POTASSIUM 25 MG TAB PO SCH (09:00)
[2022-03-29] MEDS ORDERED: POTASSIUM CHLORIDE 20 MEQ TAB CR PO ONE ×4 (09:00→17:00)
[2022-03-29] MEDS ORDERED: FUROSEMIDE INJ 10 MG/ML 4 ML VIAL IV SCH (09:00)
[2022-03-29] MEDS ORDERED: FUROSEMIDE 40 MG TAB PO SCH (09:00)
[2022-03-29] MEDS ORDERED: REMDESIVIR 100MG 200 MG in SODIUM CHLORIDE 0.9% 100 ML IV ONE ×2 (09:00→10:00)
[2022-03-29] MEDS ORDERED: DEXAMETHASONE SOD PHOS 10 MG/1 ML VIAL IV SCH (09:00)
[2022-03-29] MEDS ORDERED: POTASSIUM CHLORIDE 10MEQ EA PO ONE (10:00)
[2022-03-29] MEDS: HYDROMORPHONE HCL 2 MG TAB PO SCH ×3 (10:21→21:11)
[2022-03-29] MEDS: LOSARTAN POTASSIUM 25 MG TAB PO SCH (10:21)
[2022-03-29] MEDS: CLOPIDOGREL BISULFATE 75 MG TAB PO SCH (10:22)
[2022-03-29] MEDS: ONDANSETRON HCL 4 MG ORAL DISINTEGRATING TAB PO SCH ×2 (10:22→17:57)
[2022-03-29] MEDS: CARVEDILOL 12.5 MG TAB PO SCH ×2 (10:23→17:58)
[2022-03-29] MEDS: CLONIDINE HCL 0.1 MG TAB PO SCH (10:24)
[2022-03-29] MEDS: INSULIN REGULAR, HUMAN 100 UNIT/1 ML SQ SCH ×3 (11:30→21:00)
[2022-03-29 12:24] VITALS: BP 146/78
[2022-03-29] MEDS ORDERED: DIPHENHYDRAMINE HCL INJ 50 MG/ML VIAL IV PRN (16:00)
[2022-03-29 16:17] VITALS: BP 100/81
[2022-03-29] MEDS: CEFTRIAXONE 2 GM in SODIUM CHLORIDE 0.9% 100 ML IV SCH (17:57)
[2022-03-29] MEDS: ALBUTEROL/IPRATROPIUM 3 ML NEB NEB PRN (20:00)
[2022-03-29 20:33] VITALS: BP 146/73
[2022-03-29] MEDS ORDERED: METHYLPREDNISOLONE SOD SUCC 40 MG/ML VIAL 1ML IV SCH (21:00)
[2022-03-30] VITALS (9 sets, daily range): BP systolic 121–146; BP diastolic 67–89
[2022-03-30] MEDS: HYDROMORPHONE HCL 2 MG TAB PO PRN ×2 (06:22→17:49)
[2022-03-30 07:13] LABS: BASOPHILS % 0.2 % (0.0-1.0); HEMATOCRIT 31.6 % (34.2-44.1); HEMOGLOBIN 9.9 g/dL (12.0-16.0); LYMPHOCYTES # (AUTO) 0.4 (1.0-3.2); LYMPHOCYTES % 3.2 % (18.0-39.1); MEAN CORPUSCULAR HGB CONC 31.3 g/dL (31-35); MEAN CORPUSCULAR VOLUME 86.1 fL (81-99); MONOCYTES # (AUTO) 0.2 (0.2-0.8); MONOCYTES % 1.9 % (4.4-11.3); NEUTROPHILS # (AUTO) 11.2 (2.1-6.9); NEUTROPHILS % 94.3 % (38.7-80.0); PLATELET COUNT 212 x10e3/uL (140-360); RED BLOOD COUNT 3.67 x10e6/uL (3.6-5.1); RED CELL DISTRIBUTION WIDTH 17.5 % (11.7-14.4)
[2022-03-30] MEDS: INSULIN REGULAR, HUMAN 100 UNIT/1 ML SQ SCH ×4 (07:30→21:09)
[2022-03-30 07:37] LABS: ALBUMIN/GLOBULIN RATIO 0.8 (0.8-2.0); ANION GAP 17.1 mmol/L (8-16); CALCIUM 8.2 mg/dL (8.4-10.2); CREATININE, SERUM 1.15 mg/dL (0.57-1.11); POTASSIUM 5.1 mmol/L (3.5-5.1)
[2022-03-30] MEDS: METHYLPREDNISOLONE SOD SUCC 40 MG/ML VIAL 1ML IV SCH ×2 (11:05→20:47)
[2022-03-30] MEDS: LOSARTAN POTASSIUM 25 MG TAB PO SCH (11:06)
[2022-03-30] MEDS: ONDANSETRON HCL 4 MG ORAL DISINTEGRATING TAB PO SCH ×2 (11:06→17:48)
[2022-03-30] MEDS: CLONIDINE HCL 0.1 MG TAB PO SCH (11:06)
[2022-03-30] MEDS: CARVEDILOL 12.5 MG TAB PO SCH ×2 (11:07→17:47)
[2022-03-30] MEDS: CLOPIDOGREL BISULFATE 75 MG TAB PO SCH (11:07)
[2022-03-30] MEDS: ALBUTEROL/IPRATROPIUM 3 ML NEB NEB PRN ×3 (12:02→19:17)
[2022-03-30] MEDS: CEFTRIAXONE 2 GM in SODIUM CHLORIDE 0.9% 100 ML IV SCH (17:48)
[2022-03-30] MEDS: REMDESIVIR 100MG 100 MG in SODIUM CHLORIDE 0.9% 100 ML IV SCH (17:48)
[2022-03-31] VITALS (8 sets, daily range): BP systolic 108–141; BP diastolic 64–87
[2022-03-31] MEDS: HYDROMORPHONE HCL 2 MG TAB PO PRN ×2 (01:29→18:19)
[2022-03-31] MEDS: ALBUTEROL/IPRATROPIUM 3 ML NEB NEB PRN ×3 (07:07→20:00)
[2022-03-31 07:30] LABS: BASOPHILS % 0.1 % (0.0-1.0); HEMATOCRIT 30.7 % (34.2-44.1); HEMOGLOBIN 9.5 g/dL (12.0-16.0); LYMPHOCYTES # (AUTO) 0.5 (1.0-3.2); LYMPHOCYTES % 4.9 % (18.0-39.1); MEAN CORPUSCULAR HEMOGLOBIN 26.7 pg (28-32); MEAN CORPUSCULAR HGB CONC 30.9 g/dL (31-35); MEAN CORPUSCULAR VOLUME 86.2 fL (81-99); MONOCYTES # (AUTO) 0.3 (0.2-0.8); MONOCYTES % 2.4 % (4.4-11.3); NEUTROPHILS # (AUTO) 9.7 (2.1-6.9); NEUTROPHILS % 91.9 % (38.7-80.0); PLATELET COUNT 221 x10e3/uL (140-360); RED BLOOD COUNT 3.56 x10e6/uL (3.6-5.1); RED CELL DISTRIBUTION WIDTH 17.8 % (11.7-14.4)
[2022-03-31] MEDS: INSULIN REGULAR, HUMAN 100 UNIT/1 ML SQ SCH ×4 (07:30→20:48)
[2022-03-31 07:50] LABS: ALBUMIN 2.9 g/dL (3.5-5.0); ALBUMIN/GLOBULIN RATIO 0.9 (0.8-2.0); ANION GAP 12.6 mmol/L (8-16); CREATININE, SERUM 1.05 mg/dL (0.57-1.11); POTASSIUM 4.6 mmol/L (3.5-5.1)
[2022-03-31] MEDS: LOSARTAN POTASSIUM 25 MG TAB PO SCH (08:41)
[2022-03-31] MEDS: ONDANSETRON HCL 4 MG ORAL DISINTEGRATING TAB PO SCH ×2 (08:42→17:10)
[2022-03-31] MEDS: CARVEDILOL 12.5 MG TAB PO SCH ×2 (08:42→17:11)
[2022-03-31] MEDS: CLONIDINE HCL 0.1 MG TAB PO SCH (08:43)
[2022-03-31] MEDS: METHYLPREDNISOLONE SOD SUCC 40 MG/ML VIAL 1ML IV SCH ×2 (08:45→20:46)
[2022-03-31] MEDS: CLOPIDOGREL BISULFATE 75 MG TAB PO SCH (08:45)
[2022-03-31] MEDS: REMDESIVIR 100MG 100 MG in SODIUM CHLORIDE 0.9% 100 ML IV SCH (14:21)
[2022-03-31] MEDS ORDERED: FUROSEMIDE INJ 10 MG/ML 4 ML VIAL IV ONE (14:30)
[2022-03-31] MEDS: LEVALBUTEROL 15 GM AERO IH SCH ×3 (14:55→23:40)
[2022-03-31] MEDS ORDERED: FUROSEMIDE INJ 10 MG/ML 4 ML VIAL ONE (16:19)
[2022-03-31] MEDS: CEFTRIAXONE 2 GM in SODIUM CHLORIDE 0.9% 100 ML IV SCH (17:08)
[2022-03-31] MEDS: GUAIFENESIN 600MG/DEXTROMETHORPHAN 30MG TABSR PO SCH (17:12)
[2022-04-01] VITALS (9 sets, daily range): BP systolic 132–152; BP diastolic 70–96
[2022-04-01] MEDS: HYDROMORPHONE HCL 2 MG TAB PO PRN ×4 (02:30→21:06)
[2022-04-01] MEDS: LEVALBUTEROL 15 GM AERO IH SCH ×5 (07:15→23:30)
[2022-04-01] MEDS: INSULIN REGULAR, HUMAN 100 UNIT/1 ML SQ SCH ×4 (07:30→21:00)
[2022-04-01] MEDS: CLONIDINE HCL 0.1 MG TAB PO SCH (09:17)
[2022-04-01] MEDS: GUAIFENESIN 600MG/DEXTROMETHORPHAN 30MG TABSR PO SCH ×2 (09:24→16:51)
[2022-04-01] MEDS: LOSARTAN POTASSIUM 25 MG TAB PO SCH (09:24)
[2022-04-01] MEDS: METHYLPREDNISOLONE SOD SUCC 40 MG/ML VIAL 1ML IV SCH ×2 (09:25→21:06)
[2022-04-01] MEDS: CARVEDILOL 12.5 MG TAB PO SCH ×2 (09:25→16:52)
[2022-04-01] MEDS: ONDANSETRON HCL 4 MG ORAL DISINTEGRATING TAB PO SCH ×2 (09:25→16:51)
[2022-04-01] MEDS: CLOPIDOGREL BISULFATE 75 MG TAB PO SCH (09:25)
[2022-04-01] MEDS: REMDESIVIR 100MG 100 MG in SODIUM CHLORIDE 0.9% 100 ML IV SCH (14:27)
[2022-04-01] MEDS: CEFTRIAXONE 2 GM in SODIUM CHLORIDE 0.9% 100 ML IV SCH (16:52)
[2022-04-02] VITALS: BP 182/82
[2022-04-02] MEDS: LEVALBUTEROL 15 GM AERO IH SCH ×3 (03:05→10:14)
[2022-04-02 04:00] VITALS: BP 142/93
[2022-04-02] MEDS: HYDROMORPHONE HCL 2 MG TAB PO PRN (05:50)
[2022-04-02 05:56] LABS: BASOPHILS % 0.1 % (0.0-1.0); HEMOGLOBIN 10.9 g/dL (12.0-16.0); LYMPHOCYTES # (AUTO) 0.4 (1.0-3.2); LYMPHOCYTES % 4.6 % (18.0-39.1); MEAN CORPUSCULAR HEMOGLOBIN 27.1 pg (28-32); MEAN CORPUSCULAR VOLUME 82.1 fL (81-99); MONOCYTES # (AUTO) 0.2 (0.2-0.8); MONOCYTES % 2.7 % (4.4-11.3); NEUTROPHILS # (AUTO) 8.3 (2.1-6.9); NEUTROPHILS % 91.8 % (38.7-80.0); PLATELET COUNT 294 x10e3/uL (140-360); RED BLOOD COUNT 4.02 x10e6/uL (3.6-5.1); RED CELL DISTRIBUTION WIDTH 17.2 % (11.7-14.4)
[2022-04-02 06:44] LABS: ALBUMIN 2.9 g/dL (3.5-5.0); ALBUMIN/GLOBULIN RATIO 0.9 (0.8-2.0); CREATININE, SERUM 1.07 mg/dL (0.57-1.11)
[2022-04-02] MEDS: INSULIN REGULAR, HUMAN 100 UNIT/1 ML SQ SCH ×2 (07:30→11:30)
[2022-04-02 08:05] VITALS: BP 138/92
[2022-04-02] MEDS: LOSARTAN POTASSIUM 25 MG TAB PO SCH (09:31)
[2022-04-02] MEDS: ONDANSETRON HCL 4 MG ORAL DISINTEGRATING TAB PO SCH (09:31)
[2022-04-02] MEDS: CLOPIDOGREL BISULFATE 75 MG TAB PO SCH (09:32)
[2022-04-02] MEDS: CARVEDILOL 12.5 MG TAB PO SCH (09:32)
[2022-04-02] MEDS: CLONIDINE HCL 0.1 MG TAB PO SCH (09:32)
[2022-04-02] MEDS: GUAIFENESIN 600MG/DEXTROMETHORPHAN 30MG TABSR PO SCH (09:32)
[2022-04-02] MEDS: METHYLPREDNISOLONE SOD SUCC 40 MG/ML VIAL 1ML IV SCH (09:33)
[2022-04-02 10:14] VITALS: BP 138/92
[2022-04-02 11:45] VITALS: BP 160/68
== END 2022-04-02 13:36 | disposition home or self-care (01) | DRG 177 ==
LOC: ER 13:12 → ERHOLD 14:34 → MED/SURG2 20:19
PROC: XW033E5 Introduction of Remdesivir Anti-infective into Peripheral Vein, Percutaneous Approach, New Technology Group 5 (ICD-10-PCS; principal; 2022-03-29)
PROC: 8E0ZXY6 Isolation (ICD-10-PCS; 2022-03-29)
DX: U07.1 COVID-19 (principal); I50.33 Acute on chronic diastolic (congestive) heart failure; J96.20 Acute and chronic respiratory failure, unspecified whether with hypoxia or hypercapnia; J12.82 Pneumonia due to coronavirus disease 2019; J44.1 Chronic obstructive pulmonary disease with (acute) exacerbation; G40.909 Epilepsy, unspecified, not intractable, without status epilepticus; E11.9 Type 2 diabetes mellitus without complications; Z86.73 Personal history of transient ischemic attack (TIA), and cerebral infarction without residual deficits; I11.0 Hypertensive heart disease with heart failure; Z87.891 Personal history of nicotine dependence; Z88.0 Allergy status to penicillin; Z99.81 Dependence on supplemental oxygen; R07.89 Other chest pain; E78.49 Other hyperlipidemia; E11.69 Type 2 diabetes mellitus with other specified complication; G89.4 Chronic pain syndrome
CPT/HCPCS: 36415; 71046; 71250; 74470; 80048; 80053; 82948; 83880; 84484; 85025; 93005; 93306; 94640; 94664; 94799; 99284; J0248; J0696; J1100; J1200; J1940; J2920; J2930; J7050; Q0162

== ENCOUNTER → 2022-04-15 | Outpatient (CLI) | payer MEDICARE, OTHER ==
[~2022-04-15] MED LIST changes: +CARVEDILOL25 MG PO; +CLONIDINE HCL0.1 MG PO; +CLOPIDOGREL75 MG PO; +FUROSEMIDE40 MG PO; +HYDROMORPHONE HC8 MG PO; +LOSARTAN POTASS25 MG PO; +ONDANSETRON HCL8 MG PO
== END ==
LOC: MRI 04-12 14:01
DX: J44.1 Chronic obstructive pulmonary disease with (acute) exacerbation (principal)
CPT/HCPCS: 72146

== ENCOUNTER 2022-04-21 12:24 | Emergency (ER) | payer MEDICARE, OTHER ==
[~2022-04-21] VITALS: Ht 165.1 cm; Wt 65.8 kg
[2022-04-21 13:33] LABS: BASOPHILS % 0.6 % (0.0-1.0); EOSINOPHILS # (AUTO) 0.2 (0.0-0.4); EOSINOPHILS % 2.7 % (0.0-6.0); HEMATOCRIT 30.6 % (34.2-44.1); HEMOGLOBIN 9.6 g/dL (12.0-16.0); LYMPHOCYTES # (AUTO) 0.8 (1.0-3.2); LYMPHOCYTES % 11.1 % (18.0-39.1); MEAN CORPUSCULAR HEMOGLOBIN 27.7 pg (28-32); MEAN CORPUSCULAR HGB CONC 31.4 g/dL (31-35); MEAN CORPUSCULAR VOLUME 88.4 fL (81-99); MONOCYTES # (AUTO) 0.5 (0.2-0.8); NEUTROPHILS # (AUTO) 5.5 (2.1-6.9); NEUTROPHILS % 78.3 % (38.7-80.0); PLATELET COUNT 274 x10e3/uL (140-360); RED BLOOD COUNT 3.46 x10e6/uL (3.6-5.1); RED CELL DISTRIBUTION WIDTH 17.8 % (11.7-14.4)
[2022-04-21 13:44] LABS: INR 0.92; PROTHROMBIN TIME 13.2 seconds (11.9-14.5)
[2022-04-21 13:45] LABS: PARTIAL THROMBOPLASTIN TIME 34.8 seconds (23.8-35.5)
[2022-04-21 13:48] LABS: ALANINE AMINOTRANSFERASE 10 IU/L (0-55); ALBUMIN 3.2 g/dL (3.5-5.0); ALBUMIN/GLOBULIN RATIO 0.9 (0.8-2.0); ALKALINE PHOSPHATASE 87 IU/L (40-150); ANION GAP 14.4 mmol/L (8-16); BLOOD UREA NITROGEN 16 mg/dL (7-26); BUN/CREATININE RATIO 18 (6-25); CALCIUM 8.9 mg/dL (8.4-10.2); CARBON DIOXIDE 24 mmol/L (22-29); CHLORIDE 101 mmol/L (98-107); CREATINE KINASE 50 IU/L (29-168); CREATININE, SERUM 0.89 mg/dL (0.57-1.11); GLUCOSE 91 mg/dL (74-118); POTASSIUM 4.4 mmol/L (3.5-5.1); SODIUM 135 mmol/L (136-145)
[2022-04-21 18:06] VITALS: BP 132/74
== END 2022-04-21 17:25 | disposition home or self-care (01) ==
LOC: ER 12:35
DX: R41.0 Disorientation, unspecified (principal); I10 Essential (primary) hypertension; E11.9 Type 2 diabetes mellitus without complications; J44.9 Chronic obstructive pulmonary disease, unspecified; F41.9 Anxiety disorder, unspecified; J45.909 Unspecified asthma, uncomplicated; M79.7 Fibromyalgia; I25.2 Old myocardial infarction
CPT/HCPCS: 36415; 70450; 71045; 80053; 82550; 82553; 84484; 85025; 85610; 85730; 99284

== ENCOUNTER → 2022-04-29 | Outpatient (CLI) | payer MEDICARE, OTHER | LOC: OR 08:03 → DX 09:00 → EDSTATUS 09:00 | DX: M43.8X4 Other specified deforming dorsopathies, thoracic region (principal) ==

== ENCOUNTER → 2022-05-07 | Outpatient (CLI) | payer MEDICARE, OTHER ==
[~2022-05-07] MED LIST changes: +REGADENOSON 0.4 MG/5 ML SYR IV ONE
== END ==
LOC: NM 07:13
PROVIDERS: ATTEND Internal Medicine Cardiovascular Disease
DX: Z01.810 Encounter for preprocedural cardiovascular examination (principal); I50.22 Chronic systolic (congestive) heart failure; I20.9 Angina pectoris, unspecified
CPT/HCPCS: 78452; 93017; A9502; J2785

== ENCOUNTER → 2022-06-10 | Outpatient (CLI) | payer MEDICARE, OTHER ==
[2022-06-05 10:48] LABS: BASOPHILS # (AUTO) 0.1 (0.0-0.1); BASOPHILS % 0.8 % (0.0-1.0); EOSINOPHILS # (AUTO) 0.5 (0.0-0.4); EOSINOPHILS % 5.5 % (0.0-6.0); LYMPHOCYTES # (AUTO) 1.3 (1.0-3.2); LYMPHOCYTES % 14.1 % (18.0-39.1); MEAN CORPUSCULAR HGB CONC 30.3 g/dL (31-35); MEAN CORPUSCULAR VOLUME 95.7 fL (81-99); MONOCYTES # (AUTO) 0.7 (0.2-0.8); MONOCYTES % 7.7 % (4.4-11.3); NEUTROPHILS # (AUTO) 6.6 (2.1-6.9); NEUTROPHILS % 71.7 % (38.7-80.0); PLATELET COUNT 227 x10e3/uL (140-360); RED BLOOD COUNT 3.45 x10e6/uL (3.6-5.1); RED CELL DISTRIBUTION WIDTH 14.2 % (11.7-14.4)
[2022-06-05 11:09] LABS: ANION GAP 14.4 mmol/L (8-16); CALCIUM 9.8 mg/dL (8.4-10.2); CREATININE, SERUM 2.06 mg/dL (0.57-1.11); POTASSIUM 4.4 mmol/L (3.5-5.1)
[~2022-06-10] MED LIST changes: +CLINDAMYCIN 600MG / 50ML 50 ML IV ONE; +EPHEDRINE SULFATE INJ 50 MG/ML VIAL ONE; +FENTANYL CITRATE/PF 100MCG/2 ML INJ ONE; +HYDROMORPHONE 1MG/1ML INJ ONE; +LIDOCAINE HCL 1% LOCAL INJ 20 ML VIAL ONE; +ONDANSETRON HCL INJ 2MG/ML 2ML 2 MG/ML VIAL ONE; +POVIDONE IODINE 0.05% 0.05 % ML PO ONE; +PROPOFOL IV EMULSION 10 MG/ML 20 ML VIAL ONE; -REGADENOSON 0.4 MG/5 ML SYR IV ONE; +SEVOFLURANE INHAL SOLN 250 ML PEN BTL ONE; +SODIUM CHLORIDE 0.9% 250ML 500 ML ONE; +SUCCINYLCHOLINE CHLORIDE 20 MG/ML 10ML VIAL ONE
[2022-06-10 08:54] LABS: CREATININE, SERUM 1.34 mg/dL (0.57-1.11)
[2022-06-10 11:15] VITALS: BP 127/68
== END | disposition home or self-care (01) ==
LOC: EDSTATUS 05-20 09:00 → MERGE 05-20 09:00 → RAD 08:34 → OR 08:34 → EDSTATUS 09:00
DX: M48.54XA Collapsed vertebra, not elsewhere classified, thoracic region, initial encounter for fracture (principal); I11.0 Hypertensive heart disease with heart failure; I50.22 Chronic systolic (congestive) heart failure; E08.59 Diabetes mellitus due to underlying condition with other circulatory complications; E78.5 Hyperlipidemia, unspecified; R00.2 Palpitations; I20.9 Angina pectoris, unspecified; J44.9 Chronic obstructive pulmonary disease, unspecified; Z88.6 Allergy status to analgesic agent; Z88.1 Allergy status to other antibiotic agents; Z91.041 Radiographic dye allergy status; Z88.0 Allergy status to penicillin; Z88.2 Allergy status to sulfonamides; Z88.8 Allergy status to other drugs, medicaments and biological substances; Z91.048 Other nonmedicinal substance allergy status; Z91.030 Bee allergy status; Z01.812 Encounter for preprocedural laboratory examination; Z79.02 Long term (current) use of antithrombotics/antiplatelets; Z79.899 Other long term (current) drug therapy; Z87.891 Personal history of nicotine dependence
CPT/HCPCS: 22513; 36415 ×2; 80048; 82565; 82948; 84520; 85025; 87070; 87205; J0330; J1170; J2001; J2405; J2704; J3010; J7050

== ENCOUNTER 2023-07-04 14:39 | Inpatient (IN) | payer MEDICARE, OTHER ==
[~2023-07-04] VITALS: Ht 165.1 cm; Wt 65.8 kg
[~2023-07-04 14:39] MED LIST changes: -CLINDAMYCIN 600MG / 50ML 50 ML IV ONE; -EPHEDRINE SULFATE INJ 50 MG/ML VIAL ONE; -FENTANYL CITRATE/PF 100MCG/2 ML INJ ONE; -HYDROMORPHONE 1MG/1ML INJ ONE; -LIDOCAINE HCL 1% LOCAL INJ 20 ML VIAL ONE; -ONDANSETRON HCL INJ 2MG/ML 2ML 2 MG/ML VIAL ONE; -POVIDONE IODINE 0.05% 0.05 % ML PO ONE; -PROPOFOL IV EMULSION 10 MG/ML 20 ML VIAL ONE; -SEVOFLURANE INHAL SOLN 250 ML PEN BTL ONE; -SODIUM CHLORIDE 0.9% 250ML 500 ML ONE; -SUCCINYLCHOLINE CHLORIDE 20 MG/ML 10ML VIAL ONE
[2023-07-04] MEDS ORDERED: Morphine 4mg INJECTION 4 MG/ML INJ IV STA (15:45)
[2023-07-04] MEDS ORDERED: ONDANSETRON HCL INJ 2MG/ML 2ML 2 MG/ML VIAL IV STA (15:45)
[2023-07-04] MEDS ORDERED: SODIUM CHLORIDE 0.9% 1000ML 1,000 ML IV STA (15:45)
[2023-07-04 16:53] LABS: BASOPHILS # (AUTO) 0.1 (0.0-0.1); BASOPHILS % 0.4 % (0.0-1.0); EOSINOPHILS # (AUTO) 0.2 (0.0-0.4); EOSINOPHILS % 1.3 % (0.0-6.0); HEMATOCRIT 37.4 % (34.2-44.1); HEMOGLOBIN 13.1 g/dL (12.0-16.0); LYMPHOCYTES # (AUTO) 0.8 (1.0-3.2); LYMPHOCYTES % 6.5 % (18.0-39.1); MEAN CORPUSCULAR VOLUME 82.7 fL (81-99); MONOCYTES # (AUTO) 0.6 (0.2-0.8); MONOCYTES % 5.3 % (4.4-11.3); NEUTROPHILS # (AUTO) 10.2 (2.1-6.9); NEUTROPHILS % 86.2 % (38.7-80.0); PLATELET COUNT 332 x10e3/uL (140-360); RED BLOOD COUNT 4.52 x10e6/uL (3.6-5.1); RED CELL DISTRIBUTION WIDTH 12.4 % (11.7-14.4); WHITE BLOOD COUNT 11.88 x10e3/uL (4.8-10.8)
[2023-07-04 16:56] LABS: CLARITY,URINE SL CLOUDY (CLEAR); COLOR,URINE YELLOW (YELLOW)
[2023-07-04 16:57] LABS: KETONES,URINE NEGATIVE (NEGATIVE); LEUKOCYTE ESTERASE ,URINE MODERATE (NEGATIVE); NITRITE,URINE NEGATIVE (NEGATIVE); PROTEIN,URINE DIPSTICK 2+ (NEGATIVE); URINE UROBILINOGEN 0.2 mg/dL (0.2 - 1)
[2023-07-04 17:11] LABS: BACTERIA,URINE MODERATE /HPF; EPITHELIAL CELLS,URINE MODERATE /LPF; RBC,URINE 0-5 /HPF (0-5); TRANSITIONAL EPI CELLS,URINE MODERATE
[2023-07-04 17:16] LABS: ALBUMIN/GLOBULIN RATIO 1.3 (0.8-2.0); ANION GAP 15.2 mmol/L (8-16); CALCIUM 9.4 mg/dL (8.4-10.2); CREATININE, SERUM 1.71 mg/dL (0.57-1.11); MAGNESIUM 1.6 MG/DL (1.3-2.1)
[2023-07-04 17:40] LABS: POTASSIUM 2.2 mmol/L (3.5-5.1)
[2023-07-04] MEDS ORDERED: POTASSIUM CHLORIDE 20 MEQ TAB CR PO STA (17:40)
[2023-07-04] MEDS ORDERED: KCL 40MEQ/0.9% SOD CHL 1,000 ML IV ONE (17:45)
[2023-07-04] MEDS ORDERED: ONDANSETRON HCL INJ 2MG/ML 2ML 2 MG/ML VIAL IV PRN (18:00)
[2023-07-04] MEDS ORDERED: Morphine 4mg INJECTION 4 MG/ML INJ IV PRN (18:00)
[2023-07-04 19:39] LABS: BLOOD UREA NITROGEN 15 mg/dL (7-26); GLUCOSE 86 mg/dL (74-118); OSMOLALITY,SERUM 255 mOsm/kg (278-305); SODIUM 127 mmol/L (136-145)
[2023-07-04] MEDS ORDERED: BISACODYL 10 MG SUPP PR PRN (19:45)
[2023-07-04] MEDS ORDERED: HYDRALAZINE HCL 20 MG/ML VIAL IV PRN (19:45)
[2023-07-04] MEDS ORDERED: ACETAMINOPHEN 325 MG TAB PO PRN (19:45)
[2023-07-04] MEDS ORDERED: MAGNESIUM SULFATE 2GM/50ML 50 ML IV ONE (19:45)
[2023-07-04] MEDS ORDERED: ALBUTEROL/IPRATROPIUM 3 ML NEB NEB PRN (21:00)
[2023-07-04] MEDS ORDERED: NITROGLYCERIN 0.4 MG SUBL SL PRN (21:00)
[2023-07-04 21:30] VITALS: BP 128/107; PULSE 91; RESP 19; TEMP 97.8; O2SAT 99
[2023-07-04] MEDS: POLYETHYLENE GLYCOL 3350 17 GM PACK PO SCH (22:26)
[2023-07-04] MEDS: ATORVASTATIN 40 MG TAB PO SCH (22:26)
[2023-07-04] MEDS: DICYCLOMINE HCL 20 MG TAB PO SCH (22:27)
[2023-07-04] MEDS: HYDROMORPHONE HCL 2 MG TAB PO PRN (22:27)
[2023-07-04] MEDS: CYCLOBENZAPRINE HCL 10 MG TAB PO PRN (22:27)
[2023-07-04] MEDS: MELATONIN 3 MG TAB PO SCH (22:27)
[2023-07-04] MEDS: HEPARIN SOD (PORCINE) 5,000 UNIT/ML VIAL SC SCH (22:32)
[2023-07-04 23:36] VITALS: BP 128/107; PULSE 91; RESP 19; TEMP 97.8; O2SAT 99
[2023-07-05] VITALS (9 sets, daily range): BP systolic 128–159; BP diastolic 71–107; PULSE 68–91; RESP 12–19; TEMP 97.7–98.4; O2SAT 99–100
[2023-07-05] MEDS ORDERED: MAGNESIUM SULFATE 2GM/50ML 50 ML IV ONE (00:55)
[2023-07-05] MEDS: HYDROMORPHONE HCL 2 MG TAB PO PRN ×3 (05:49→22:11)
[2023-07-05 06:02] LABS: BASOPHILS % 0.3 % (0.0-1.0); EOSINOPHILS # (AUTO) 0.3 (0.0-0.4); EOSINOPHILS % 2.6 % (0.0-6.0); HEMATOCRIT 32.5 % (34.2-44.1); HEMOGLOBIN 11.4 g/dL (12.0-16.0); LYMPHOCYTES % 9.6 % (18.0-39.1); MEAN CORPUSCULAR HEMOGLOBIN 29.1 pg (28-32); MEAN CORPUSCULAR HGB CONC 35.1 g/dL (31-35); MEAN CORPUSCULAR VOLUME 82.9 fL (81-99); MONOCYTES # (AUTO) 0.5 (0.2-0.8); MONOCYTES % 5.1 % (4.4-11.3); NEUTROPHILS # (AUTO) 8.4 (2.1-6.9); NEUTROPHILS % 82.1 % (38.7-80.0); PLATELET COUNT 277 x10e3/uL (140-360); RED BLOOD COUNT 3.92 x10e6/uL (3.6-5.1); RED CELL DISTRIBUTION WIDTH 12.2 % (11.7-14.4); WHITE BLOOD COUNT 10.27 x10e3/uL (4.8-10.8)
[2023-07-05 06:19] LABS: ALBUMIN 3.2 g/dL (3.5-5.0); ALBUMIN/GLOBULIN RATIO 1.3 (0.8-2.0); ANION GAP 12.2 mmol/L (8-16); CALCIUM 8.5 mg/dL (8.4-10.2); CREATININE, SERUM 1.31 mg/dL (0.57-1.11); MAGNESIUM 2.2 MG/DL (1.3-2.1); POTASSIUM 3.2 mmol/L (3.5-5.1)
[2023-07-05] MEDS: LUBIPROSTONE 24 MCG CAP PO SCH (08:25)
[2023-07-05] MEDS: PANTOPRAZOLE SOD 40 MG TABEC PO SCH (08:25)
[2023-07-05] MEDS: POLYETHYLENE GLYCOL 3350 17 GM PACK PO SCH ×2 (08:25→16:01)
[2023-07-05] MEDS: CLOPIDOGREL BISULFATE 75 MG TAB PO SCH (08:25)
[2023-07-05] MEDS: SENNOSIDES 8.6 MG TAB PO SCH ×2 (08:25→15:57)
[2023-07-05] MEDS: DICYCLOMINE HCL 20 MG TAB PO SCH ×3 (08:25→20:43)
[2023-07-05] MEDS: HEPARIN SOD (PORCINE) 5,000 UNIT/ML VIAL SC SCH ×2 (08:38→20:43)
[2023-07-05] MEDS ORDERED: POLYETHYLENE GLYCOL 3350 17 GM PACK PO SCH (09:00)
[2023-07-05] MEDS: CYCLOBENZAPRINE HCL 10 MG TAB PO PRN (09:43)
[2023-07-05] MEDS ORDERED: POTASSIUM CHLORIDE 20 MEQ TAB CR PO ONE (10:55)
[2023-07-05 15:45] LABS: ANION GAP 12.4 mmol/L (8-16); CALCIUM 8.5 mg/dL (8.4-10.2); CREATININE, SERUM 1.13 mg/dL (0.57-1.11); POTASSIUM 3.4 mmol/L (3.5-5.1)
[2023-07-05] MEDS: POTASSIUM CHLORIDE 20 MEQ TAB CR PO SCH (15:57)
[2023-07-05 16:19] LABS: CLARITY,URINE CLEAR (CLEAR); COLOR,URINE YELLOW (YELLOW); KETONES,URINE NEGATIVE (NEGATIVE); LEUKOCYTE ESTERASE ,URINE LARGE (NEGATIVE); NITRITE,URINE NEGATIVE (NEGATIVE); PROTEIN,URINE DIPSTICK 1+ (NEGATIVE); URINE UROBILINOGEN 0.2 mg/dL (0.2 - 1)
[2023-07-05 16:29] LABS: BACTERIA,URINE MODERATE /HPF; EPITHELIAL CELLS,URINE MANY /LPF; RBC,URINE 0-5 /HPF (0-5); WBC,URINE (MAN) >50 /HPF (0-5)
[2023-07-05 16:37] LABS: CREATININE,URINE RANDOM 42.43 mg/dL (47-110)
[2023-07-05] MEDS ORDERED: SODIUM CHLORIDE 0.9% 250ML 250 ML ONE (16:59)
[2023-07-05 17:01] LABS: POTASSIUM,URINE 16.7 mmol/L
[2023-07-05] MEDS: HYDROCODONE/APAP 5MG-325MG TAB PO PRN (19:36)
[2023-07-05] MEDS: ATORVASTATIN 40 MG TAB PO SCH (20:43)
[2023-07-05] MEDS: MELATONIN 3 MG TAB PO SCH (20:43)
[2023-07-06] VITALS (7 sets, daily range): BP systolic 104–158; BP diastolic 67–91; PULSE 71–82; RESP 17–20; TEMP 98–98.4; O2SAT 97–100
[2023-07-06] MEDS: HYDROCODONE/APAP 5MG-325MG TAB PO PRN ×3 (03:23→18:44)
[2023-07-06 05:02] LABS: BASOPHILS % 0.5 % (0.0-1.0); EOSINOPHILS # (AUTO) 0.3 (0.0-0.4); EOSINOPHILS % 4.7 % (0.0-6.0); HEMOGLOBIN 10.2 g/dL (12.0-16.0); LYMPHOCYTES # (AUTO) 1.1 (1.0-3.2); LYMPHOCYTES % 16.9 % (18.0-39.1); MEAN CORPUSCULAR HEMOGLOBIN 28.8 pg (28-32); MEAN CORPUSCULAR VOLUME 84.7 fL (81-99); MONOCYTES # (AUTO) 0.5 (0.2-0.8); MONOCYTES % 7.4 % (4.4-11.3); NEUTROPHILS # (AUTO) 4.5 (2.1-6.9); NEUTROPHILS % 70.3 % (38.7-80.0); PLATELET COUNT 262 x10e3/uL (140-360); RED BLOOD COUNT 3.54 x10e6/uL (3.6-5.1); RED CELL DISTRIBUTION WIDTH 12.5 % (11.7-14.4); WHITE BLOOD COUNT 6.34 x10e3/uL (4.8-10.8)
[2023-07-06 05:45] LABS: ALBUMIN 2.9 g/dL (3.5-5.0); ALBUMIN/GLOBULIN RATIO 1.4 (0.8-2.0); ANION GAP 9.7 mmol/L (8-16); CALCIUM 8.2 mg/dL (8.4-10.2); CREATININE, SERUM 1.05 mg/dL (0.57-1.11); POTASSIUM 3.7 mmol/L (3.5-5.1)
[2023-07-06] MEDS: HYDROMORPHONE HCL 2 MG TAB PO PRN ×3 (06:25→22:48)
[2023-07-06] MEDS: LUBIPROSTONE 24 MCG CAP PO SCH (09:06)
[2023-07-06] MEDS: PANTOPRAZOLE SOD 40 MG TABEC PO SCH (09:06)
[2023-07-06] MEDS: DICYCLOMINE HCL 20 MG TAB PO SCH ×3 (09:06→21:54)
[2023-07-06] MEDS: SENNOSIDES 8.6 MG TAB PO SCH ×2 (09:08→16:22)
[2023-07-06] MEDS: CLOPIDOGREL BISULFATE 75 MG TAB PO SCH (09:08)
[2023-07-06] MEDS: POLYETHYLENE GLYCOL 3350 17 GM PACK PO SCH ×2 (09:08→16:22)
[2023-07-06] MEDS: POTASSIUM CHLORIDE 20 MEQ TAB CR PO SCH (09:08)
[2023-07-06] MEDS: HEPARIN SOD (PORCINE) 5,000 UNIT/ML VIAL SC SCH ×2 (09:13→21:51)
[2023-07-06] MEDS ORDERED: FUROSEMIDE 20 MG TAB PO ONE (10:45)
[2023-07-06] MEDS: SODIUM CHLORIDE 1 GM TAB PO SCH ×3 (11:22→21:54)
[2023-07-06] MEDS ORDERED: DICLOFENAC SOD 1% GEL 100 GM TUBE TP SCH (12:00)
[2023-07-06] MEDS: ATORVASTATIN 40 MG TAB PO SCH (21:53)
[2023-07-06] MEDS: MELATONIN 3 MG TAB PO SCH (21:54)
[2023-07-06] MEDS: CYCLOBENZAPRINE HCL 10 MG TAB PO PRN (21:59)
[2023-07-07 01:33] VITALS: BP 135/72; PULSE 74; RESP 18; TEMP 98.3; O2SAT 100
[2023-07-07] MEDS: HYDROCODONE/APAP 5MG-325MG TAB PO PRN ×2 (03:18→12:14)
[2023-07-07 04:15] VITALS: BP 160/90; PULSE 71; RESP 18; TEMP 98.4; O2SAT 99
[2023-07-07 06:50] LABS: BASOPHILS # (AUTO) 0.1 (0.0-0.1); BASOPHILS % 0.9 % (0.0-1.0); EOSINOPHILS # (AUTO) 0.5 (0.0-0.4); EOSINOPHILS % 6.4 % (0.0-6.0); HEMATOCRIT 30.5 % (34.2-44.1); HEMOGLOBIN 10.2 g/dL (12.0-16.0); LYMPHOCYTES # (AUTO) 1.3 (1.0-3.2); MEAN CORPUSCULAR HEMOGLOBIN 28.6 pg (28-32); MEAN CORPUSCULAR HGB CONC 33.4 g/dL (31-35); MEAN CORPUSCULAR VOLUME 85.4 fL (81-99); MONOCYTES # (AUTO) 0.5 (0.2-0.8); MONOCYTES % 7.1 % (4.4-11.3); NEUTROPHILS # (AUTO) 4.6 (2.1-6.9); NEUTROPHILS % 66.2 % (38.7-80.0); PLATELET COUNT 272 x10e3/uL (140-360); RED BLOOD COUNT 3.57 x10e6/uL (3.6-5.1); RED CELL DISTRIBUTION WIDTH 12.8 % (11.7-14.4)
[2023-07-07 07:12] LABS: ALBUMIN/GLOBULIN RATIO 1.5 (0.8-2.0); CALCIUM 8.4 mg/dL (8.4-10.2); CREATININE, SERUM 1.01 mg/dL (0.57-1.11); MAGNESIUM 1.4 MG/DL (1.3-2.1)
[2023-07-07] MEDS: HYDROMORPHONE HCL 2 MG TAB PO PRN (07:35)
[2023-07-07 08:05] VITALS: BP 138/81; PULSE 80; RESP 19; TEMP 98.4; O2SAT 100
[2023-07-07 08:58] VITALS: BP 138/81; PULSE 80; RESP 19; TEMP 98.4; O2SAT 100
[2023-07-07] MEDS ORDERED: POTASSIUM CHLORIDE 20 MEQ TAB CR PO SCH (09:00)
[2023-07-07] MEDS: POLYETHYLENE GLYCOL 3350 17 GM PACK PO SCH (09:24)
[2023-07-07] MEDS: DICYCLOMINE HCL 20 MG TAB PO SCH (09:24)
[2023-07-07] MEDS: CLOPIDOGREL BISULFATE 75 MG TAB PO SCH (09:24)
[2023-07-07] MEDS: LUBIPROSTONE 24 MCG CAP PO SCH (09:24)
[2023-07-07] MEDS: SENNOSIDES 8.6 MG TAB PO SCH (09:25)
[2023-07-07] MEDS: PANTOPRAZOLE SOD 40 MG TABEC PO SCH (09:25)
[2023-07-07] MEDS: CYCLOBENZAPRINE HCL 10 MG TAB PO PRN (09:25)
[2023-07-07] MEDS: HEPARIN SOD (PORCINE) 5,000 UNIT/ML VIAL SC SCH (09:26)
[2023-07-07] MEDS ORDERED: CIPRO500 MG PO ×2 (09:28→13:15)
[2023-07-07] MEDS ORDERED: HYDROCODON-ACE1 EA11 PO ×2 (09:28→13:15)
[2023-07-07] MEDS ORDERED: ONDANSETRON HCL 4 MG ORAL DISINTEGRATING TAB PO PRN (13:15)
== END 2023-07-07 13:35 | disposition home or self-care (01) | DRG 683 ==
LOC: ER 14:53 → ERHOLD 17:53 → MED/SURG3 22:01
PROVIDERS: ADMIT Internal Medicine; ATTEND Internal Medicine
PROC: 02HV33Z Insertion of Infusion Device into Superior Vena Cava, Percutaneous Approach (ICD-10-PCS; principal; 2023-07-04)
PROC: B548ZZA Ultrasonography of Superior Vena Cava, Guidance (ICD-10-PCS; 2023-07-04)
DX: N17.9 Acute kidney failure, unspecified (principal); E87.1 Hypo-osmolality and hyponatremia; N39.0 Urinary tract infection, site not specified; J96.11 Chronic respiratory failure with hypoxia; I13.0 Hypertensive heart and chronic kidney disease with heart failure and stage 1 through stage 4 chronic kidney disease, or unspecified chronic kidney disease; E87.6 Hypokalemia; N13.30 Unspecified hydronephrosis; D72.9 Disorder of white blood cells, unspecified; M54.50 Low back pain, unspecified; I25.10 Atherosclerotic heart disease of native coronary artery without angina pectoris; N18.31 Chronic kidney disease, stage 3a; J44.9 Chronic obstructive pulmonary disease, unspecified; F41.9 Anxiety disorder, unspecified; F13.90 Sedative, hypnotic, or anxiolytic use, unspecified, uncomplicated; G89.4 Chronic pain syndrome; F11.90 Opioid use, unspecified, uncomplicated; I65.29 Occlusion and stenosis of unspecified carotid artery; E78.5 Hyperlipidemia, unspecified; K21.9 Gastro-esophageal reflux disease without esophagitis; I50.9 Heart failure, unspecified; K58.1 Irritable bowel syndrome with constipation; G43.009 Migraine without aura, not intractable, without status migrainosus; R11.0 Nausea; W01.0XXA Fall on same level from slipping, tripping and stumbling without subsequent striking against object, initial encounter; Y92.009 Unspecified place in unspecified non-institutional (private) residence as the place of occurrence of the external cause; R26.89 Other abnormalities of gait and mobility; Z68.24 Body mass index [BMI] 24.0-24.9, adult; M79.7 Fibromyalgia; T23.039A Burn of unspecified degree of unspecified multiple fingers (nail), not including thumb, initial encounter; T25.022A Burn of unspecified degree of left foot, initial encounter; X12.XXXA Contact with other hot fluids, initial encounter; Z87.891 Personal history of nicotine dependence; Z99.81 Dependence on supplemental oxygen; Z79.02 Long term (current) use of antithrombotics/antiplatelets
CPT/HCPCS: 36415; 36569; 71045; 72050; 72070; 72110; 74176; 80048; 80053; 81001; 82550; 82570; 82947; 82948; 83735; 83935; 84133; 84295; 84484; 84520; 84550; 85025; 87040; 87086; 93005; 99284; J0696; J1644; J2270; J2405; J3475; J7030; J7050; U0002